=== PATIENT | female | born 1955 | race Two or more races ===

== ENCOUNTER 2016-04-22 08:49 | Emergency (ER) | payer MEDICARE, MEDICAID ==
[2016-04-22] MEDS ORDERED: OXYCODONE-ACETAMINOPHEN 5-325 MG TABLET PO ONE (09:50)
--- NOTE | 2016-04-22 09:50 | ER Document Report ---
ED Neck/Back Problem - General Chief Complaint: Low Back Pain Stated Complaint: THIGH PAIN Mode of Arrival: Ambulatory Information source: Patient TRAVEL OUTSIDE OF THE [place] IN LAST 30 DAYS: No - Related Data Allergies/Adverse Reactions: hydrocodone [Hydrocodone] Allergy (Severe, Verified 04/22/16 08:53) sertraline HCl [From Zoloft] Allergy (Severe, Verified 04/22/16 08:53) hives, resp arrest propranolol HCl [From Inderal] Allergy (Intermediate, Verified 04/22/16 08:53) Hives lamotrigine [From Lamictal] Allergy (Verified 04/22/16 08:53) propranolol Allergy (Verified 04/22/16 08:53) Past Medical History - Social History Smoking Status: Unknown if Ever Smoked Chew tobacco use (# tins/day): No Frequency of alcohol use: Occasional Drug Abuse: None Family History: Reviewed & Not Pertinent, Arthritis, CVA, Hyperlipidemia, Hypertension, Malignancy, Thyroid Disfunction Patient has suicidal ideation: No Patient has homicidal ideation: No - Past Medical History Cardiac Medical History: Reports: Hx Hypercholesterolemia, Hx Hypertension Pulmonary Medical History: Reports: Hx Asthma Denies: Hx Tuberculosis Neurological Medical History: Reports: Hx Cerebrovascular Accident, Hx Migraine Endocrine Medical History: Reports: Hx HypothyroidismComment Only: Hx Diabetes Mellitus Type 2 - borderline GI Medical History: Reports: Hx Gastroesophageal Reflux Disease Musculoskeltal Medical History: Reports Hx Arthritis, Reports Hx Musculoskeletal Deformity, Reports Hx Musculoskeletal Trauma Psychiatric Medical History: Reports: Hx Bipolar Disorder, Hx Depression, Hx Schizophrenia Past Surgical History: Reports: Hx Section, Hx Gynecologic Surgery - hyst, Hx Hysterectomy, Hx Thyroid Surgery, Hx Tonsillectomy - Immunizations Immunizations up to date: Yes Hx Diphtheria, Pertussis, Tetanus Vaccination: Yes Hx Pneumococcal Vaccination: 12/15/15 Physical Exam - Vital signs Vitals: Temp Pulse Resp BP Pulse Ox 98.8 F 101 H 15 166/116 H 96 04/22/16 08:54 04/22/16 08:54 04/22/16 08:54 04/22/16 08:54 04/22/16 08:54 Course - Vital Signs Vital signs: Temp Pulse Resp BP Pulse Ox 98.8 F 101 H 15 166/116 H 96 04/22/16 08:54 04/22/16 08:54 04/22/16 08:54 04/22/16 08:54 04/22/16 08:54 Discharge - Discharge Clinical Impression: Chronic low back pain Qualifiers: Back pain laterality: right Sciatica presence: with sciatica Sciatica laterality: sciatica of right side Qualified Code(s): M54.41 - Lumbago with sciatica, right side; G89.29 - Other chronic pain Condition: Stable Disposition: HOME, SELF-CARE Instructions: Chronic Pain Control ([facility]), Chronic Back Pain ([facility]), Leg Pain Nonspecific ([facility]), Muscle Relaxers ([facility]), Anti-Inflammatory Medication ([facility]), Sciatica ([facility]) Additional Instructions: Keep your appointment and follow-up with your primary care provider this week. Return to the Emergency Department for any worsening symptoms or concerns. Prescriptions: Methocarbamol [Robaxin 500 mg Tablet] 500 mg PO BIDP PRN #10 tablet PRN Reason: Naproxen [Naprosyn 250 mg Tablet] 250 mg PO BIDP PRN #10 tablet PRN Reason: Forms: Elevated Blood Pressure Referrals: YEE LEONARD PA-C [Primary Care Provider] - Follow up tomorrow
[2016-04-22 10:12] VITALS: BP 143/103
== END 2016-04-22 10:10 | disposition home or self-care (01) ==
LOC: ER 08:49
DX: M54.41 Lumbago with sciatica, right side (principal); G89.29 Other chronic pain; I10 Essential (primary) hypertension; J45.909 Unspecified asthma, uncomplicated; Z88.5 Allergy status to narcotic agent; Z88.8 Allergy status to other drugs, medicaments and biological substances; Z86.73 Personal history of transient ischemic attack (TIA), and cerebral infarction without residual deficits
CPT/HCPCS: 99283; A9270

== ENCOUNTER 2016-05-01 09:38 | Emergency (ER) | payer MEDICARE, MEDICAID ==
[2016-05-01] MEDS ORDERED: NORMAL SALINE 1000 ML 1,000 ML IV ONE (11:24)
[2016-05-01] MEDS ORDERED: MORPHINE SULFATE 10 MG/ML INJ IV ONE ×2 (11:27→12:15)
--- NOTE | 2016-05-01 11:33 | ER Document Report ---
ED General - General Chief Complaint: Abdominal Pain Stated Complaint: STOMACH PAIN Time seen by provider: 11:15 Mode of Arrival: Ambulatory Information source: Patient Notes: 60-year-old female who complains about 2 day history of fairly abrupt onset left lower quadrant abdominal pain. She reports 1 week of diarrhea prior to that says it is better now. She reports she had some nausea with the past week but no vomiting and that is now better too. She denies any prior history of symptoms like this the review of records does show prior emergency department visits with left lower quadrant pain. The patient denies fever, chills, cough, shortness of breath, earache, sore throat, chest pain, back pain, , hematemesis , hematochezia, or melena. Patient denies any dysuria but does think she may have has emergency of the past 3 days Physical Exam: General: Alert, appears well. HEENT: Normocephalic. Atraumatic. PERRLA. Extraocular movements intact. Oropharynx clear. Neck: Supple. Non-tender. Respiratory: No respiratory distress. Clear and equal breath sounds bilaterally. Cardiovascular: Regular rate and rhythm. Abdominal: Normal Inspection. Soft, initially reports left lower quadrant pain but with distraction abdomen is soft nontender nondistended no guarding rebound rigidity or referred pain. No distension. Normal Bowel Sounds. Back: Non-tender. No deformity or step off. No CVA tenderness Extremities: Moves all four extremities. 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 Normal Mood. Skin: Warm. Dry. Normal color. TRAVEL OUTSIDE OF THE [place] IN LAST 30 DAYS: No - Related Data Allergies/Adverse Reactions: hydrocodone [Hydrocodone] Allergy (Severe, Verified 05/01/16 11:49) sertraline HCl [From Zoloft] Allergy (Severe, Verified 05/01/16 11:49) hives, resp arrest propranolol HCl [From Inderal] Allergy (Intermediate, Verified 05/01/16 11:49) Hives lamotrigine [From Lamictal] Allergy (Verified 05/01/16 11:49) propranolol Allergy (Verified 05/01/16 11:49) Past Medical History - Social History Smoking Status: Never Smoker Chew tobacco use (# tins/day): No Frequency of alcohol use: Occasional Family History: Arthritis, CVA, Hyperlipidemia, Hypertension, Malignancy, Thyroid Disfunction Patient has suicidal ideation: No Patient has homicidal ideation: No - Past Medical History Cardiac Medical History: Reports: Hx Hypercholesterolemia, Hx Hypertension Pulmonary Medical History: Reports: Hx Asthma Denies: Hx Tuberculosis Neurological Medical History: Reports: Hx Cerebrovascular Accident, Hx Migraine Endocrine Medical History: Reports: Hx HypothyroidismComment Only: Hx Diabetes Mellitus Type 2 - borderline Renal/ Medical History: Denies: Hx Peritoneal Dialysis GI Medical History: Reports: Hx Gastroesophageal Reflux Disease Musculoskeltal Medical History: Reports Hx Arthritis, Reports Hx Musculoskeletal Deformity, Reports Hx Musculoskeletal Trauma Psychiatric Medical History: Reports: Hx Bipolar Disorder, Hx Depression, Hx Schizophrenia Past Surgical History: Reports: Hx Section, Hx Gynecologic Surgery - hyst, Hx Hysterectomy, Hx Thyroid Surgery, Hx Tonsillectomy - Immunizations Immunizations up to date: Yes Hx Diphtheria, Pertussis, Tetanus Vaccination: Yes Hx Pneumococcal Vaccination: 12/15/15 Review of Systems - Review of Systems Constitutional: See HPI EENT: denies: Ear pain, Throat pain Cardiovascular: denies: Chest pain Respiratory: denies: Cough, Short of breath Gastrointestinal: Abdominal pain, Diarrhea, Nausea Genitourinary: denies: Burning, Dysuria Musculoskeletal: denies: Back pain, Ankle swelling Hematologic/Lymphatic: denies: Swollen glands Neurological/Psychological: denies: Weakness, Numbness Physical Exam - Vital signs Vitals: Temp Pulse Resp BP 98.4 F 106 H 18 152/106 H 05/01/16 09:43 05/01/16 09:43 05/01/16 09:43 05/01/16 09:43 Course - Re-evaluation Re-evalutation: 05/01/16 13:44 Reexamination patient shows abdomen to be soft nontender nondistended no guarding rebound rigidity. She reports no nausea or vomiting. CT shows no evidence for kidney stones or other intra-abdominal pathology. There is equivocal evidence for UTI and this will be treated and have her follow with her physician as an outpatient - Vital Signs Vital signs: Temp Pulse Resp BP Pulse Ox 98.4 F 106 H 18 152/106 H 98 05/01/16 09:43 05/01/16 09:43 05/01/16 09:43 05/01/16 09:43 05/01/16 12:20 - Laboratory Result Diagrams: 05/01/16 11:38 05/01/16 11:38 Laboratory results interpreted by me: 05/01/16 05/01/16 11:38 12:05 Potassium 3.5 L Ur Leukocyte Esterase TRACE H - Diagnostic Test Radiology reviewed: Image reviewed, Reports reviewed Discharge - Discharge Clinical Impression: Abdominal pain Qualifiers: Abdominal location: left lower quadrant Qualified Code(s): R10.32 - Left lower quadrant pain UTI (urinary tract infection) Qualifiers: Urinary tract infection type: site unspecified Hematuria presence: without hematuria Qualified Code(s): N39.0 - Urinary tract infection, site not specified Condition: Stable Disposition: HOME, SELF-CARE Instructions: Abdominal Pain ([facility]), Urinary Tract Infection ([facility]) Prescriptions: Nitrofurantoin/Nitrofuran Mac [Macrobid 100 mg Capsule] 1 tab PO BID #20 capsule Phenazopyridine HCl [Pyridium 100 Mg Tablet] 100 mg PO BID #4 tablet Referrals: YEE LEONARD PA-C [Primary Care Provider] - Follow up in 3-5 days
[2016-05-01 11:45] LABS: ABSOLUTE BASOPHILS # (AUTO) 0.1 10^3/uL (0.0-0.2); ABSOLUTE EOSINOPHILS # (AUTO) 0.1 10^3/uL (0.0-0.6); ABSOLUTE LYMPHOCYTES (AUTO) 2.1 10^3/uL (0.5-4.7); ABSOLUTE MONOCYTES (AUTO) 0.7 10^3/uL (0.1-1.4); ABSOLUTE NEUT (AUTO) 4.8 10^3/uL (1.7-8.2); BASOPHILS % (AUTO) 0.7 % (0-2); EOSINOPHILS % (AUTO) 1.6 % (0-6); HEMATOCRIT 40.6 % (36.0-47.0); HEMOGLOBIN 13.5 g/dL (12.0-15.5); HGB HCT DIFFERENCE -0.1; MEAN CORPUSCULAR HEMOGLOBIN 31.2 pg (27.0-33.4); MEAN CORPUSCULAR HGB CONC 33.1 g/dL (32.0-36.0); MEAN CORPUSCULAR VOLUME 94 fl (80-97); MONOCYTES % (AUTO) 8.4 % (3-13); RED BLOOD COUNT 4.32 10^6/uL (3.72-5.28); RED CELL DISTRIBUTION WIDTH 12.4 % (11.5-14.0); SEGMENTED NEUTROPHILS % (AUTO) 62.3 % (42-78); WHITE BLOOD COUNT 7.7 10^3/uL (4.0-10.5)
[2016-05-01 12:06] LABS: ALANINE AMINOTRANSFERASE 29 U/L (9-52); ALBUMIN 4.2 g/dL (3.5-5.0); ALKALINE PHOSPHATASE 92 U/L (38-126); ANION GAP 13 (5-19); ASPARTATE AMINO TRANSFERASE 27 U/L (14-36); BILIRUBIN,TOTAL 0.5 mg/dL (0.2-1.3); BLOOD UREA NITROGEN 8 mg/dL (7-20); CARBON DIOXIDE 30 mmol/L (22-30); CHLORIDE 100 mmol/L (98-107); CREATININE RESULT 0.52 mg/dL (0.52-1.25); GLUCOSE 101 mg/dL (75-110); LIPASE 164.1 U/L (23-300); POTASSIUM 3.5 mmol/L (3.6-5.0); SODIUM 142.5 mmol/L (137-145); TOTAL PROTEIN 7.3 g/dL (6.3-8.2)
[2016-05-01 12:29] LABS: APPEARANCE,URINE CLEAR; BILIRUBIN,URINE NEGATIVE (NEGATIVE); GLUCOSE, URINE NEGATIVE (NEGATIVE); KETONES,URINE NEGATIVE (NEGATIVE); LEUKOCYTE ESTERASE,URINE TRACE (NEGATIVE); NITRITE,URINE NEGATIVE (NEGATIVE); PROTEIN,URINE NEGATIVE (NEGATIVE); URINE SPECIFIC GRAVITY 1.006; UROBILINOGEN,URINE NEGATIVE mg/dL (<2.0)
[2016-05-01 13:59] VITALS: BP 147/104
== END 2016-05-01 13:58 | disposition home or self-care (01) ==
LOC: ER 09:38
DX: N39.0 Urinary tract infection, site not specified (principal); R10.32 Left lower quadrant pain; R19.7 Diarrhea, unspecified; R11.0 Nausea; E78.00 Pure hypercholesterolemia, unspecified; I10 Essential (primary) hypertension; E03.9 Hypothyroidism, unspecified; Z86.73 Personal history of transient ischemic attack (TIA), and cerebral infarction without residual deficits; Z88.6 Allergy status to analgesic agent
CPT/HCPCS: 96376; 99284; 96361; 96374; 36415; 87086; 83690; 85025; 87088; 80053; 81001; 87186; 74176; J2270; J7030

== ENCOUNTER 2016-05-03 12:13 | Emergency (ER) | payer MEDICARE, MEDICAID ==
--- NOTE | 2016-05-03 12:19 | ER Document Report ---
Addendum entered and electronically signed by ANSON SHETTY NP 12:22: Doctor's Note Notes: 05/03/16 12:[address] Jeffery concerning her symptoms and her blood pressure Dr. Jeffery recommended a CT of the head at this time. And that she be made into a level II. Original Note: ED Medical Screen (RME) - General Stated Complaint: HEADACHE,BACK PAIN Time seen by provider: 12:16 Mode of Arrival: Ambulatory Information source: Patient Notes: 60-year-old female presents to ED migraine headache and back pain with sciatica. She states she had elevated blood pressure this morning of 170/102 at home. The back pain and the headache both started last night blood pressure in RME is 172/110. She takes tribenzor and clonidine and states she has taken both of her medicines today. Patient states she had a stroke 2 years ago. She states she had some blurred vision this morning. I have greeted and performed a rapid initial assessment of this patient. A comprehensive ED assessment and evaluation of the patient, analysis of test results and completion of medical decision making process will be conducted by an additional ED providers. TRAVEL OUTSIDE OF THE [place] IN LAST 30 DAYS: No - Related Data Allergies/Adverse Reactions: hydrocodone [Hydrocodone] Allergy (Severe, Verified 05/03/16 12:15) sertraline HCl [From Zoloft] Allergy (Severe, Verified 05/03/16 12:15) hives, resp arrest propranolol HCl [From Inderal] Allergy (Intermediate, Verified 05/03/16 12:15) Hives lamotrigine [From Lamictal] Allergy (Verified 05/03/16 12:15) propranolol Allergy (Verified 05/03/16 12:15) Past Medical History - Past Medical History Cardiac Medical History: Reports: Hx Hypercholesterolemia, Hx Hypertension Pulmonary Medical History: Reports: Hx Asthma Denies: Hx Tuberculosis Neurological Medical History: Reports: Hx Cerebrovascular Accident, Hx Migraine Endocrine Medical History: Reports: Hx HypothyroidismComment Only: Hx Diabetes Mellitus Type 2 - borderline Renal/ Medical History: Denies: Hx Peritoneal Dialysis GI Medical History: Reports: Hx Gastroesophageal Reflux Disease Musculoskeltal Medical History: Reports Hx Arthritis, Reports Hx Musculoskeletal Deformity, Reports Hx Musculoskeletal Trauma Psychiatric Medical History: Reports: Hx Bipolar Disorder, Hx Depression, Hx Schizophrenia Past Surgical History: Reports: Hx Section, Hx Gynecologic Surgery - hyst, Hx Hysterectomy, Hx Thyroid Surgery, Hx Tonsillectomy - Immunizations Immunizations up to date: Yes Hx Diphtheria, Pertussis, Tetanus Vaccination: Yes
[2016-05-03] MEDS ORDERED: ACETAMINOPHEN 325 MG TABLET PO ONE (12:20)
[2016-05-03] MEDS ORDERED: DIPHENHYDRAMINE HCL 50 MG/ML VIAL IV ONE (12:57)
[2016-05-03] MEDS ORDERED: PROCHLORPERAZINE EDISYLATE INJ 10 MG/2 ML VIAL IV ONE (12:57)
[2016-05-03 13:06] LABS: ABSOLUTE BASOPHILS # (AUTO) 0.1 10^3/uL (0.0-0.2); ABSOLUTE EOSINOPHILS # (AUTO) 0.3 10^3/uL (0.0-0.6); ABSOLUTE LYMPHOCYTES (AUTO) 2.6 10^3/uL (0.5-4.7); ABSOLUTE MONOCYTES (AUTO) 0.5 10^3/uL (0.1-1.4); ABSOLUTE NEUT (AUTO) 5.3 10^3/uL (1.7-8.2); BASOPHILS % (AUTO) 0.9 % (0-2); EOSINOPHILS % (AUTO) 3.8 % (0-6); HEMATOCRIT 42.3 % (36.0-47.0); HEMOGLOBIN 13.8 g/dL (12.0-15.5); HGB HCT DIFFERENCE -0.9; LYMPHOCYTES % (AUTO) 29.1 % (13-45); MEAN CORPUSCULAR HEMOGLOBIN 30.5 pg (27.0-33.4); MEAN CORPUSCULAR HGB CONC 32.7 g/dL (32.0-36.0); MEAN CORPUSCULAR VOLUME 93 fl (80-97); MONOCYTES % (AUTO) 6.2 % (3-13); RED BLOOD COUNT 4.53 10^6/uL (3.72-5.28); RED CELL DISTRIBUTION WIDTH 12.5 % (11.5-14.0); WHITE BLOOD COUNT 8.8 10^3/uL (4.0-10.5)
[2016-05-03 13:19] LABS: ALANINE AMINOTRANSFERASE 36 U/L (9-52); ALBUMIN 5.1 g/dL (3.5-5.0); ALKALINE PHOSPHATASE 100 U/L (38-126); ANION GAP 15 (5-19); ASPARTATE AMINO TRANSFERASE 26 U/L (14-36); BILIRUBIN,TOTAL 0.7 mg/dL (0.2-1.3); BLOOD UREA NITROGEN 13 mg/dL (7-20); CALCIUM 10.8 mg/dL (8.4-10.2); CARBON DIOXIDE 26 mmol/L (22-30); CHLORIDE 101 mmol/L (98-107); CREATININE RESULT 0.59 mg/dL (0.52-1.25); GLUCOSE 114 mg/dL (75-110); LIPASE 189.8 U/L (23-300); POTASSIUM 3.8 mmol/L (3.6-5.0); SODIUM 141.7 mmol/L (137-145); TOTAL PROTEIN 8.2 g/dL (6.3-8.2)
[2016-05-03] MEDS ORDERED: HYDRALAZINE HCL INJ/PF 20 MG/1 ML SDV IV ONE (13:25)
--- NOTE | 2016-05-03 13:35 | ER Document Report ---
ED General - General Chief Complaint: Headache Stated Complaint: HEADACHE,BACK PAIN Mode of Arrival: Ambulatory Information source: Patient Notes: 60 yr old female with hx of htn , migraines and previous cva presetns with complaints of headache. pt notes she gets headaches like this often when her bp is elevated. pt has taken her meds. denies any neuro deficits , admits to blurry vision initally which has since resolved. TRAVEL OUTSIDE OF THE [place] IN LAST 30 DAYS: No - HPI Onset: Just prior to arrival Onset/Duration: Sudden Quality of pain: Pressure Severity: Mild Pain Level: 1 Associated symptoms: Headache Exacerbated by: Denies Relieved by: Denies Similar symptoms previously: Yes Recently seen / treated by doctor: Yes - Related Data Allergies/Adverse Reactions: hydrocodone [Hydrocodone] Allergy (Severe, Verified 05/03/16 12:15) sertraline HCl [From Zoloft] Allergy (Severe, Verified 05/03/16 12:15) hives, resp arrest propranolol HCl [From Inderal] Allergy (Intermediate, Verified 05/03/16 12:15) Hives lamotrigine [From Lamictal] Allergy (Verified 05/03/16 12:15) propranolol Allergy (Verified 05/03/16 12:15) Past Medical History - General Information source: Patient - Social History Smoking Status: Never Smoker Cigarette use (# per day): No Chew tobacco use (# tins/day): No Smoking Education Provided: No Frequency of alcohol use: None Drug Abuse: None Family History: Arthritis, CVA, Hyperlipidemia, Hypertension, Malignancy, Thyroid Disfunction Patient has suicidal ideation: No Patient has homicidal ideation: No - Past Medical History Cardiac Medical History: Reports: Hx Hypercholesterolemia, Hx Hypertension Pulmonary Medical History: Reports: Hx Asthma Denies: Hx Tuberculosis Neurological Medical History: Reports: Hx Cerebrovascular Accident, Hx Migraine Endocrine Medical History: Reports: Hx HypothyroidismComment Only: Hx Diabetes Mellitus Type 2 - borderline Renal/ Medical History: Denies: Hx Peritoneal Dialysis GI Medical History: Reports: Hx Gastroesophageal Reflux Disease Musculoskeltal Medical History: Reports Hx Arthritis, Reports Hx Musculoskeletal Deformity, Reports Hx Musculoskeletal Trauma Psychiatric Medical History: Reports: Hx Bipolar Disorder, Hx Depression, Hx Schizophrenia Past Surgical History: Reports: Hx Section, Hx Gynecologic Surgery - hyst, Hx Hysterectomy, Hx Thyroid Surgery, Hx Tonsillectomy - Immunizations Immunizations up to date: Yes Hx Diphtheria, Pertussis, Tetanus Vaccination: Yes Hx Pneumococcal Vaccination: 12/15/15 Review of Systems - Review of Systems Notes: REVIEW OF SYSTEMS: CONSTITUTIONAL : Denies fever, chills, or sweats. Denies recent illness. EENT: Admits to photophobia CARDIOVASCULAR: Denies chest pain. Denies palpitations or racing or irregular heart beat. Denies ankle edema. RESPIRATORY: Denies cough, cold, or chest congestion. Denies shortness of breath, difficulty breathing, or wheezing. GASTROINTESTINAL: Denies abdominal pain or distention. Denies nausea, vomiting , or diarrhea. Denies blood in vomitus, stools, or per rectum. Denies black, tarry stools. Denies constipation. GENITOURINARY: Denies difficulty urinating, painful urination, burning, frequency, blood in urine, or discharge. FEMALE GENITOURINARY: Denies vaginal bleeding, heavy or abnormal periods, irregular periods. Denies vaginal discharge or odor. MUSCULOSKELETAL: Denies back or neck pain or stiffness. Denies joint pain or swelling. SKIN: Denies rash, lesions or sores. HEMATOLOGIC : Denies easy bruising or bleeding. LYMPHATIC: Denies swollen, enlarged glands. NEUROLOGICAL: Admits acute on chronic headache PSYCHIATRIC: Denies anxiety or stress. Denies depression, suicidal ideation, or homicidal ideation. ALL OTHER SYSTEMS REVIEWED AND NEGATIVE. Dictation was performed using [employer] voice recognition software PHYSICAL EXAMINATION: GENERAL: Well-appearing, well-nourished and in no acute distress. Patient is hypertensive on arrival HEAD: Atraumatic, normocephalic. EYES: Pupils equal round and reactive to light, extraocular movements intact, conjunctiva are normal. ENT: Nares patent, oropharynx clear without exudates. Moist mucous membranes. NECK: Normal range of motion, supple without lymphadenopathy LUNGS: Breath sounds clear to auscultation bilaterally and equal. No wheezes rales or rhonchi. HEART: Intermittent tachycardia anxiety related ABDOMEN: Soft, nontender, nondistended abdomen. No guarding, no rebound. No masses appreciated. Female : deferred Musculoskeletal: Normal range of motion, no pitting or edema. No cyanosis. NEUROLOGICAL: Cranial nerves grossly intact. Normal speech, normal gait. Normal sensory, motor exams PSYCH: Normal mood, normal affect. SKIN: Warm, Dry, normal turgor, no rashes or lesions noted. Physical Exam - Vital signs Vitals: Temp Pulse Resp BP Pulse Ox 98.6 F 118 H 20 172/110 H 97 05/03/16 12:17 05/03/16 12:17 05/03/16 12:17 05/03/16 12:17 05/03/16 12:17 Course - Re-evaluation Re-evalutation: 05/03/16 13:35 Emergency to the head noted no acute abnormality patient has no neurological deficits does not appear to have a CVA, patient will be treated for her blood pressure and headache concerns 05/03/16 14:57 Patient's blood pressure is improved her headache is resolved, she is now complaining of chronic back pain, this would be treated with anti- inflammatories and does not require any narcotics at this time After performing a Medical Screening Examination, I estimate there is LOW risk for ACUTE GLAUCOMA, TEMPORAL ARTERITIS, MENINGITIS, INCRANIAL HEMORRHAGE, or ISCHEMIC STROKE thus I consider the discharge disposition reasonable. The patient and I have discussed the diagnosis and risks, and we agree with discharging home with close follow-up with the understanding that symptoms and presentations can change. We also discussed returning to the Emergency Department immediately if new or worsening symptoms occur. We have discussed the symptoms which are most concerning (e.g., changing or worsening symptoms, new numbness or weakness, vomiting, fever) that necessitate immediate return. - Vital Signs Vital signs: Temp Pulse Resp BP Pulse Ox 98.6 F 118 H 20 167/109 H 96 05/03/16 12:17 05/03/16 12:17 05/03/16 13:50 05/03/16 13:51 05/03/16 13:51 - Laboratory Result Diagrams: 05/03/16 12:25 05/03/16 12:25 Laboratory results interpreted by me: 05/03/16 12:25 Glucose 114 H Calcium 10.8 H Albumin 5.1 H - Diagnostic Test Radiology reviewed: Image reviewed, Reports reviewed Discharge - Discharge Clinical Impression: Hypertension Qualifiers: Hypertension type: essential hypertension Qualified Code(s): I10 - Essential ( primary) hypertension Headache Qualifiers: Headache type: unspecified Headache chronicity pattern: acute headache Intractability: not intractable Qualified Code(s): R51 - Headache Chronic back pain Qualifiers: Back pain location: low back pain Back pain laterality: bilateral Sciatica presence: without sciatica Qualified Code(s): M54.5 - Low back pain; G89.29 - Other chronic pain Condition: Stable Disposition: HOME, SELF-CARE Instructions: Headache ([facility]) Referrals: YEE LEONARD PA-C [Primary Care Provider] - Follow up tomorrow
[2016-05-03 14:07] LABS: APPEARANCE,URINE CLEAR; BILIRUBIN,URINE NEGATIVE (NEGATIVE); GLUCOSE, URINE NEGATIVE (NEGATIVE); KETONES,URINE NEGATIVE (NEGATIVE); LEUKOCYTE ESTERASE,URINE NEGATIVE (NEGATIVE); NITRITE,URINE NEGATIVE (NEGATIVE); PROTEIN,URINE NEGATIVE (NEGATIVE); URINE SPECIFIC GRAVITY 1.004; UROBILINOGEN,URINE NEGATIVE mg/dL (<2.0)
[2016-05-03 14:17] LABS: RBC,URINE NONE SEEN /HPF; WBC,URINE NONE SEEN /HPF
[2016-05-03] MEDS ORDERED: KETOROLAC TROMETHAMINE INJ/PF 30 MG/1 ML SDV IV ONE (14:56)
[2016-05-03 16:16] VITALS: BP 177/101
== END 2016-05-03 15:11 | disposition home or self-care (01) ==
LOC: ER 12:13
DX: G89.29 Other chronic pain (principal); M54.5 Low back pain; R51 Headache; E78.00 Pure hypercholesterolemia, unspecified; I10 Essential (primary) hypertension; E03.9 Hypothyroidism, unspecified; Z86.73 Personal history of transient ischemic attack (TIA), and cerebral infarction without residual deficits; Z88.6 Allergy status to analgesic agent; Z90.710 Acquired absence of both cervix and uterus
CPT/HCPCS: 99284; 96374; 96375; 36415; 83690; 85025; 80053; 81001; 70450; A9270; J1200; J0360; J1885; J0780

== ENCOUNTER 2016-05-06 00:50 | Emergency (ER) | payer MEDICARE, MEDICAID ==
[2016-05-06] MEDS ORDERED: KETOROLAC TROMETHAMINE 60 MG/2 ML SDV IM ONE (02:47)
--- NOTE | 2016-05-06 03:52 | ER Document Report ---
ED General - General Chief Complaint: Low Back Pain Stated Complaint: LOW BACK PAIN Notes: Patient is 60-year-old female presents with complaint of exacerbation of her chronic back pain with sciatic nerve impingement. She says this feels exactly like her usual pain. So became worse tonight. Pain radiates from the rest of her back down the back of her leg. No numbness or weakness in her foot. Loss of bowel control. No urinary retention. Patient says in the past Toradol has helped very much with this pain. She has no other complaints at this time. TRAVEL OUTSIDE OF THE [place] IN LAST 30 DAYS: No - Related Data Allergies/Adverse Reactions: hydrocodone [Hydrocodone] Allergy (Severe, Verified 05/06/16 01:24) sertraline HCl [From Zoloft] Allergy (Severe, Verified 05/06/16 01:24) hives, resp arrest propranolol HCl [From Inderal] Allergy (Intermediate, Verified 05/06/16 01:24) Hives lamotrigine [From Lamictal] Allergy (Verified 05/06/16 01:24) propranolol Allergy (Verified 05/06/16 01:24) Past Medical History - Social History Smoking Status: Unknown if Ever Smoked Frequency of alcohol use: Occasional Drug Abuse: None Family History: Arthritis, CVA, Hyperlipidemia, Hypertension, Malignancy, Thyroid Disfunction Patient has suicidal ideation: No Patient has homicidal ideation: No - Past Medical History Cardiac Medical History: Reports: Hx Hypercholesterolemia, Hx Hypertension Pulmonary Medical History: Reports: Hx Asthma Denies: Hx Tuberculosis Neurological Medical History: Reports: Hx Cerebrovascular Accident, Hx Migraine Endocrine Medical History: Reports: Hx HypothyroidismComment Only: Hx Diabetes Mellitus Type 2 - borderline Renal/ Medical History: Denies: Hx Peritoneal Dialysis GI Medical History: Reports: Hx Gastroesophageal Reflux Disease Musculoskeltal Medical History: Reports Hx Arthritis, Reports Hx Musculoskeletal Deformity, Reports Hx Musculoskeletal Trauma Psychiatric Medical History: Reports: Hx Bipolar Disorder, Hx Depression, Hx Schizophrenia Past Surgical History: Reports: Hx Section, Hx Gynecologic Surgery - hyst, Hx Hysterectomy, Hx Thyroid Surgery, Hx Tonsillectomy - Immunizations Immunizations up to date: Yes Hx Diphtheria, Pertussis, Tetanus Vaccination: Yes Hx Pneumococcal Vaccination: 12/15/15 Review of Systems - Review of Systems Notes: My Normal Review Basic REVIEW OF SYSTEMS: CONSTITUTIONAL : Denies fever, chills, or sweats. Denies recent illness. GASTROINTESTINAL: Denies abdominal pain. Denies nausea, vomiting, or diarrhea. Denies constipation. Last BM: GENITOURINARY: Denies difficulty urinating, painful urination, burning, frequency, or blood in urine. MUSCULOSKELETAL: Back pain SKIN: Denies rash or skin lesions. NEUROLOGICAL: Denies altered mental status or loss of consciousness. Denies headache. Denies weakness or paralysis or loss of use of either side. Denies problems with gait or speech. Denies sensory or motor loss. ALL OTHER SYSTEMS REVIEWED AND NEGATIVE. Physical Exam - Vital signs Vitals: Temp Pulse Resp BP Pulse Ox 98.3 F 108 H 20 140/98 H 95 05/06/16 01:18 05/06/16 01:18 05/06/16 01:18 05/06/16 01:18 05/06/16 01:18 - Notes Notes: General Appearance: Well nourished, alert, cooperative, no acute distress, moderate obvious discomfort. Vitals: reviewed, See vital signs table. Head: no swelling or tenderness to the head Eyes: PERRL, EOMI, Conjuctiva clear Back: Some elevation of the right lower back and into gluteal area. Left side of the back is nontender to palpation. Extremities: strength 5/5 in all extremities, good pulses in all extremities, no swelling or tenderness in the extremities, no edema. Skin: warm, dry, appropriate color, no rash Neuro: speech clear, oriented x 3, normal affect, responds appropriately to questions. Patient is good strength with plantar and dorsiflexion against resistance of both feet. Distal sensation intact. Patellar reflex is 2 out of 4. Course - Vital Signs Vital signs: Temp Pulse Resp BP Pulse Ox 98.6 F 97 18 137/90 H 98 05/06/16 04:11 05/06/16 04:11 05/06/16 04:11 05/06/16 04:11 05/06/16 04:11 - Transfer of Care Notes: 05/06/16 06:27 After the shot of Toradol patient is feeling improved. Patient looks very well and exam. I feel the patient is safe to be discharged home. Symptoms are consistent with back pain with sciatica. There is no evidence of central spinal cord impingement. I encourage her to return to ER immediately if she has worsening pain, leg weakness, leg numbness, loss of bowel control, urinary retention. Patient agrees with plan and will be discharged home. Dictation of this chart was performed using voice recognition software; therefore, there may be some unintended grammatical errors. Discharge - Discharge Clinical Impression: Back pain Qualifiers: Back pain location: low back pain Chronicity: chronic Back pain laterality: right Sciatica presence: with sciatica Sciatica laterality: sciatica of right side Qualified Code(s): M54.41 - Lumbago with sciatica, right side Condition: Good Disposition: HOME, SELF-CARE Additional Instructions: LOW BACK PAIN: Three out of every four people will have an episode of disabling back pain during their lifetime. Most commonly the pain is due to straining of the muscles and ligaments in the low back. Usual treatment includes: (1) Rest on a firm surface. Avoid lying on your stomach. (2) Ice pack the painful area. After a few days, gentle heat may be used intermittently to relax the area, or ice packs can be continued. (3) Medication may be needed -- muscle relaxers and antiinflammatory medicines are commonly used. (4) As the back improves, exercises are prescribed to strengthen the back and abdominal muscles. Your doctor will advise you on the proper care for your back at each stage in your recovery. You may be better in a few days -- or healing may take several weeks. If new symptoms of a "herniated disc" (radiation of pain, numbness, or tingling down the back of the leg or weakness in the leg) occur, you should be re-examined. Further testing may be necessary. ICE PACKS: Apply ice packs frequently against the painful area. Many different schedules are recommended, such as "20 minutes on, 20 minutes off" or "one hour ice, two hours rest." If you need to work, you may need to go longer between ice treatments. You should plan to have the area ice packed AT LEAST one fourth of the time. The ice should be applied over the wrap, tape, or splint, or over a layer of cloth -- not directly against the skin. Some ice bags have a built-in cloth and can be put directly on the skin. WARM PACKS: After approximately two days, apply gentle heat (such as a heating pad or hot water bottle) for about 20 to 30 minutes about every two hours -- at least four times daily. Warmth and elevation will help you make a more rapid recovery , and will ease the pain considerably. Do not use HOT heat, and never apply heat for longer than 30 minutes. The continuous heat can invisibly damage skin and muscles -- even when no burn is seen on the surface. Damaged muscles can make you MORE sore. FOLLOW-UP CARE: If you have been referred to a physician for follow-up care, call the physician s office for an appointment as you were instructed or within the next two days. If you experience worsening or a significant change in your symptoms, notify the physician immediately or return to the Emergency Department at any time for re-evaluation. Please follow up with your doctor on Saturday for close reevaluation. Please return to the ER immediately if you have worsening pain, leg weakness, loss of control of your bowels, or urinary retention. Prescriptions: Ketorolac Tromethamine [Toradol 10 mg Tablet] 10 mg PO Q8HP PRN #12 tablet PRN Reason: Referrals: YEE LEONARD PA-C [Primary Care Provider] - Follow up tomorrow
[2016-05-06 04:17] VITALS: BP 137/90
== END 2016-05-06 04:18 | disposition home or self-care (01) ==
LOC: ER 00:50
DX: G89.29 Other chronic pain (principal); M54.41 Lumbago with sciatica, right side; I10 Essential (primary) hypertension; J45.909 Unspecified asthma, uncomplicated; Z86.73 Personal history of transient ischemic attack (TIA), and cerebral infarction without residual deficits; Z88.5 Allergy status to narcotic agent; Z88.8 Allergy status to other drugs, medicaments and biological substances
CPT/HCPCS: 99283; 96372; J1885

== ENCOUNTER 2016-05-08 20:54 | Emergency (ER) | payer MEDICARE, MEDICAID ==
[2016-05-08] MEDS ORDERED: PROCHLORPERAZINE MALEATE 10 MG TABLET PO ONE (21:43)
--- NOTE | 2016-05-08 21:43 | ER Document Report ---
ED Medical Screen (RME) - General Chief Complaint: Headache Stated Complaint: POSSIBLE MIGRAINE Time seen by provider: 21:38 Mode of Arrival: Ambulatory Information source: Patient Notes: 60-year-old female presents to ED for headache radiating down the back of her neck down her shoulder and back and chest. Started about midnight last night and has been taken ibuprofen 800. States she has a history of migraines. She states she saw her primary doctor today and they gave her a shot of Toradol states he didn't give her any nausea medicine or any prescription. Appointment for MRI on Saturday and she is supposed to be scheduled for pain management Pressure 150/89 with a pulse of 116 when seen in RME I have greeted and performed a rapid initial assessment of this patient. A comprehensive ED assessment and evaluation of the patient, analysis of test results and completion of medical decision making process will be conducted by an additional ED providers. TRAVEL OUTSIDE OF THE [place] IN LAST 30 DAYS: No - Related Data Allergies/Adverse Reactions: hydrocodone [Hydrocodone] Allergy (Severe, Verified 05/06/16 01:24) sertraline HCl [From Zoloft] Allergy (Severe, Verified 05/06/16 01:24) hives, resp arrest propranolol HCl [From Inderal] Allergy (Intermediate, Verified 05/06/16 01:24) Hives lamotrigine [From Lamictal] Allergy (Verified 05/06/16 01:24) propranolol Allergy (Verified 05/06/16 01:24) Past Medical History - Past Medical History Cardiac Medical History: Reports: Hx Hypercholesterolemia, Hx Hypertension Pulmonary Medical History: Reports: Hx Asthma Denies: Hx Tuberculosis Neurological Medical History: Reports: Hx Cerebrovascular Accident, Hx Migraine Endocrine Medical History: Reports: Hx HypothyroidismComment Only: Hx Diabetes Mellitus Type 2 - borderline Renal/ Medical History: Denies: Hx Peritoneal Dialysis GI Medical History: Reports: Hx Gastroesophageal Reflux Disease Musculoskeltal Medical History: Reports Hx Arthritis, Reports Hx Musculoskeletal Deformity, Reports Hx Musculoskeletal Trauma Psychiatric Medical History: Reports: Hx Bipolar Disorder, Hx Depression, Hx Schizophrenia Past Surgical History: Reports: Hx Section, Hx Gynecologic Surgery - hyst, Hx Hysterectomy, Hx Thyroid Surgery, Hx Tonsillectomy - Immunizations Immunizations up to date: Yes Hx Diphtheria, Pertussis, Tetanus Vaccination: Yes Physical Exam - Vital signs Vitals: Pulse Resp BP Pulse Ox 119 H 19 123/102 H 95 01/24/17 21:12 05/08/16 21:12 05/08/16 21:12 05/08/16 21:12 Course - Vital Signs Vital signs: Temp Pulse Resp BP Pulse Ox 121 H 19 150/89 H 95 05/08/16 21:37 05/08/16 21:12 05/08/16 21:37 05/08/16 21:12
[2016-05-09] MEDS ORDERED: ONDANSETRON 4 MG TAB.RAPDIS PO ONE (00:40)
[2016-05-09] MEDS ORDERED: OXYCODONE-ACETAMINOPHEN 5-325 MG TABLET PO ONE (00:40)
[2016-05-09] MEDS ORDERED: ONDANSETRON ODT 4 MG TAB (6 TAB/DSPK) PO PRN (01:01)
--- NOTE | 2016-05-09 01:01 | ER Document Report ---
ED Headache - General Chief Complaint: Headache Stated Complaint: POSSIBLE MIGRAINE Mode of Arrival: Ambulatory TRAVEL OUTSIDE OF THE [place] IN LAST 30 DAYS: No - Related Data Allergies/Adverse Reactions: hydrocodone [Hydrocodone] Allergy (Severe, Verified 05/06/16 01:24) sertraline HCl [From Zoloft] Allergy (Severe, Verified 05/06/16 01:24) hives, resp arrest propranolol HCl [From Inderal] Allergy (Intermediate, Verified 05/06/16 01:24) Hives lamotrigine [From Lamictal] Allergy (Verified 05/06/16 01:24) propranolol Allergy (Verified 05/06/16 01:24) Past Medical History - General Information source: Patient - Social History Family History: Arthritis, CVA, Hyperlipidemia, Hypertension, Malignancy, Thyroid Disfunction - Past Medical History Cardiac Medical History: Reports: Hx Hypercholesterolemia, Hx Hypertension Pulmonary Medical History: Reports: Hx Asthma Denies: Hx Tuberculosis Neurological Medical History: Reports: Hx Cerebrovascular Accident, Hx Migraine Endocrine Medical History: Reports: Hx HypothyroidismComment Only: Hx Diabetes Mellitus Type 2 - borderline Renal/ Medical History: Denies: Hx Peritoneal Dialysis GI Medical History: Reports: Hx Gastroesophageal Reflux Disease Musculoskeltal Medical History: Reports Hx Arthritis, Reports Hx Musculoskeletal Deformity, Reports Hx Musculoskeletal Trauma Psychiatric Medical History: Reports: Hx Bipolar Disorder, Hx Depression, Hx Schizophrenia Past Surgical History: Reports: Hx Section, Hx Gynecologic Surgery - hyst, Hx Hysterectomy, Hx Thyroid Surgery, Hx Tonsillectomy - Immunizations Immunizations up to date: Yes Hx Diphtheria, Pertussis, Tetanus Vaccination: Yes Hx Pneumococcal Vaccination: 12/15/15 Physical Exam - Vital signs Vitals: Pulse Resp BP Pulse Ox 119 H 19 123/102 H 95 05/08/16 21:12 05/08/16 21:12 05/08/16 21:12 05/08/16 21:12 Course - Vital Signs Vital signs: Temp Pulse Resp BP Pulse Ox 121 H 19 150/89 H 95 05/08/16 21:37 05/08/16 21:12 05/08/16 21:37 05/08/16 21:12 Discharge - Discharge Clinical Impression: Headache Condition: Stable Disposition: HOME, SELF-CARE Instructions: Headache ([facility]) Prescriptions: Oxycodone HCl/Acetaminophen [Percocet 5-325 mg Tablet] 1 - 2 tab PO Q4H PRN #15 tablet PRN Reason: Forms: Elevated Blood Pressure Referrals: YEE LEONARD PA-C [Primary Care Provider] - Follow up as needed
[2016-05-09 01:44] VITALS: BP 147/113
--- NOTE | 2016-05-09 01:53 | ER Document Report ---
ED Headache - General Mode of Arrival: Ambulatory Information source: Patient TRAVEL OUTSIDE OF THE [place] IN LAST 30 DAYS: No - HPI Patient complains to provider of: Headache, "Migraine" Patient reports: Occasional migraines Onset: This afternoon Associated symptoms: Other - see above - General Chief Complaint: Headache Stated Complaint: POSSIBLE MIGRAINE Notes: 60 year old female with history of migraines and hypertension presents to the ED complaining of a migraine and pain to the back of her neck that started earlier today. Patient states that she was given Compazine, but it irritated her stomach and did nothing to the pain. Patient states that she was given Toradol at her physician's office. Patient also states that she has an MRI scheduled for Saturday to look at her spine which has been bothering her. Patient claims that she is in the process of getting a pain management physician. (QUANG SANCHEZ) - Related Data Allergies/Adverse Reactions: hydrocodone [Hydrocodone] Allergy (Severe, Verified 05/06/16 01:24) sertraline HCl [From Zoloft] Allergy (Severe, Verified 05/06/16 01:24) hives, resp arrest propranolol HCl [From Inderal] Allergy (Intermediate, Verified 05/06/16 01:24) Hives lamotrigine [From Lamictal] Allergy (Verified 05/06/16 01:24) propranolol Allergy (Verified 05/06/16 01:24) Past Medical History - General Information source: Patient - Social History Smoking Status: Never Smoker Family History: Arthritis, CVA, Hyperlipidemia, Hypertension, Malignancy, Thyroid Disfunction - Past Medical History Cardiac Medical History: Reports: Hx Hypercholesterolemia, Hx Hypertension Pulmonary Medical History: Reports: Hx Asthma Neurological Medical History: Reports: Hx Cerebrovascular Accident, Hx Migraine Endocrine Medical History: Reports: Hx HypothyroidismComment Only: Hx Diabetes Mellitus Type 2 - borderline GI Medical History: Reports: Hx Gastroesophageal Reflux Disease Musculoskeltal Medical History: Reports Hx Arthritis, Reports Hx Musculoskeletal Deformity, Reports Hx Musculoskeletal Trauma Psychiatric Medical History: Reports: Hx Bipolar Disorder, Hx Depression, Hx Schizophrenia Past Surgical History: Reports: Hx Section, Hx Gynecologic Surgery - hyst, Hx Hysterectomy, Hx Thyroid Surgery, Hx Tonsillectomy - Immunizations Immunizations up to date: Yes Hx Diphtheria, Pertussis, Tetanus Vaccination: Yes Hx Pneumococcal Vaccination: 12/15/15 Review of Systems - Review of Systems Constitutional: No symptoms reported EENT: No symptoms reported Cardiovascular: No symptoms reported Respiratory: No symptoms reported Gastrointestinal: No symptoms reported Genitourinary: No symptoms reported Female Genitourinary: No symptoms reported Musculoskeletal: See HPI, Neck pain Skin: No symptoms reported Hematologic/Lymphatic: No symptoms reported Neurological/Psychological: See HPI, Headaches -: Yes All other systems reviewed and negative Physical Exam - Vital signs Interpretation: Normal - General General appearance: Alert In distress: None - HEENT Head: Normocephalic, Atraumatic Eyes: Normal Extraocular movements intact: Yes Pupils: PERRL - Respiratory Respiratory status: No respiratory distress Breath sounds: Normal - Cardiovascular Rhythm: Regular Heart sounds: Normal auscultation - Abdominal Inspection: Normal - Back Back: Normal - Extremities General upper extremity: Normal inspection, Normal ROM General lower extremity: Normal inspection, Normal ROM - Neurological Neuro grossly intact: Yes Cognition: Normal Orientation: AAOx4 [place] Coma Scale Eye Opening: Spontaneous [place] Coma Scale Verbal: Oriented [place] Coma Scale Motor: Obeys Commands [place] Coma Scale Total: 15 Speech: Normal - Psychological Associated symptoms: Normal affect, Normal mood - Skin Skin Temperature: Warm Skin Moisture: Dry Skin Color: Normal - Vital signs Vitals: Pulse Resp BP Pulse Ox 119 H 19 123/102 H 95 05/08/16 21:12 05/08/16 21:12 05/08/16 21:12 05/08/16 21:12 (UQANG SANCHEZ) (CHRISTINE SHARMA) Course - Re-evaluation Re-evalutation: 05/09/16 Patient appears uncomfortable but otherwise well. Blood work within normal limits. Patient has had this pain for quite some time. Requesting Percocet. Patient will be discharged home upon request, and is to follow-up with her pain management doctor. Stable for discharge. (CHRISTINE SHARMA) - Vital Signs Vital signs: Temp Pulse Resp BP Pulse Ox 97.8 F 107 H 16 147/113 H 96 05/09/16 01:15 05/09/16 01:15 05/09/16 01:15 05/09/16 01:15 05/09/16 01:15 (QUANG SANCHEZ) (CHRISTINE SHARMA) Discharge - Discharge Clinical Impression: Headache Qualifiers: Headache type: unspecified Headache chronicity pattern: acute headache Intractability: not intractable Qualified Code(s): R51 - Headache Condition: Stable Disposition: HOME, SELF-CARE Instructions: Headache ([facility]) Prescriptions: Oxycodone HCl/Acetaminophen [Percocet 5-325 mg Tablet] 1 - 2 tab PO Q4H PRN #15 tablet PRN Reason: Forms: Elevated Blood Pressure Referrals: YEE LEONARD PA-C [Primary Care Provider] - Follow up as needed Scribe Attestation: 05/09/16 03:23 I personally performed the services described in the documentation, reviewed and edited the documentation which was dictated to the scribe in my presence, and it accurately records my words and actions. (CHRISTINE SHARMA) Scribe Documentation - Scribe Written by Michelle:: Michelle Trinh, 05/09/2016 1:55 acting as scribe for :: Noemí
== END 2016-05-09 01:30 | disposition home or self-care (01) ==
LOC: ER 20:54
DX: R51 Headache (principal); I10 Essential (primary) hypertension
CPT/HCPCS: 99283; A9270 ×4; S0119; S0183

== ENCOUNTER 2016-05-11 23:40 | Emergency (ER) | payer MEDICARE, MEDICAID ==
[2016-05-11 23:47] VITALS: BP 116/89
[2016-05-12] MEDS ORDERED: OXYCODONE-ACETAMINOPHEN 5-325 MG TABLET PO ONE (01:06)
[2016-05-12] MEDS ORDERED: PROMETHAZINE HCL 25 MG TABLET PO ONE (01:06)
--- NOTE | 2016-05-12 01:07 | ER Document Report ---
ED Headache - General Chief Complaint: Headache Stated Complaint: HEADACHE Time seen by provider: 01:05 Notes: Patient is a 60-year-old female that comes emergency department for chief complaint of pain in her head with a throbbing headache and pain in her lower back. She states that she had an MRI earlier today and started feeling uncomfortable during the MRI, states that afterwards she had pain in her back and headache. She denies nausea or vomiting, head injury, dizziness, visual changes, fever. Past medical history of migraines and hypertension, states that she was given Percocet for the same type of headache and this worked very well. She states that she has pain management referral pending at [facility]. She states she took 800 mg of ibuprofen for her pain in her back and head but this did not resolve her symptoms. TRAVEL OUTSIDE OF THE [place] IN LAST 30 DAYS: No - Related Data Allergies/Adverse Reactions: hydrocodone [Hydrocodone] Allergy (Severe, Verified 05/12/16 01:59) sertraline HCl [From Zoloft] Allergy (Severe, Verified 05/12/16 01:59) hives, resp arrest propranolol HCl [From Inderal] Allergy (Intermediate, Verified 05/12/16 01:59) Hives lamotrigine [From Lamictal] Allergy (Verified 05/12/16 01:59) propranolol Allergy (Verified 05/12/16 01:59) Past Medical History - General Information source: Patient - Social History Smoking Status: Never Smoker Chew tobacco use (# tins/day): No Frequency of alcohol use: Occasional Drug Abuse: None Lives with: Family Family History: Arthritis, CVA, Hyperlipidemia, Hypertension, Malignancy, Thyroid Disfunction Patient has suicidal ideation: No Patient has homicidal ideation: No - Past Medical History Cardiac Medical History: Reports: Hx Hypercholesterolemia, Hx Hypertension Pulmonary Medical History: Reports: Hx Asthma Denies: Hx Tuberculosis Neurological Medical History: Reports: Hx Cerebrovascular Accident, Hx Migraine Endocrine Medical History: Reports: Hx HypothyroidismComment Only: Hx Diabetes Mellitus Type 2 - borderline Renal/ Medical History: Denies: Hx Peritoneal Dialysis GI Medical History: Reports: Hx Gastroesophageal Reflux Disease Musculoskeltal Medical History: Reports Hx Arthritis, Reports Hx Musculoskeletal Deformity, Reports Hx Musculoskeletal Trauma Psychiatric Medical History: Reports: Hx Bipolar Disorder, Hx Depression, Hx Schizophrenia Past Surgical History: Reports: Hx Section, Hx Gynecologic Surgery - hyst, Hx Hysterectomy, Hx Thyroid Surgery, Hx Tonsillectomy - Immunizations Immunizations up to date: Yes Hx Diphtheria, Pertussis, Tetanus Vaccination: Yes Hx Pneumococcal Vaccination: 12/15/15 Review of Systems - Review of Systems Constitutional: No symptoms reported EENT: No symptoms reported Cardiovascular: No symptoms reported Respiratory: No symptoms reported Gastrointestinal: No symptoms reported Genitourinary: No symptoms reported Female Genitourinary: No symptoms reported Musculoskeletal: See HPI Skin: No symptoms reported Hematologic/Lymphatic: No symptoms reported Neurological/Psychological: See HPI Physical Exam - Vital signs Vitals: Temp Pulse Resp BP Pulse Ox 98.2 F 98 22 H 116/89 H 98 05/11/16 23:43 05/11/16 23:43 05/11/16 23:43 05/11/16 23:43 05/11/16 23:43 Interpretation: Normal - General General appearance: Appears well, Alert In distress: None - HEENT Head: Normocephalic, Atraumatic Eyes: Normal Conjunctiva: Normal Extraocular movements intact: Yes Eyelashes: Normal Pupils: PERRL Ears: Normal Sinus: Normal Nasal: Normal Mouth/Lips: Normal Mucous membranes: Normal Pharynx: Normal Neck: Normal - Respiratory Respiratory status: No respiratory distress Chest status: Nontender Breath sounds: Normal. No: Decreased air movement, Nonproductive cough, Wheezing Chest palpation: Normal - Cardiovascular Rhythm: Regular. No: Tachycardia Heart sounds: Normal auscultation, S1 appreciated, S2 appreciated Murmur: No - Abdominal Inspection: Normal Distension: No distension Bowel sounds: Normal Tenderness: Nontender. No: Tender, Guarding Organomegaly: No organomegaly - Back Back: Tender - Very generalized lower back pain on palpation, nonspecific, not midline, no saddle anesthesia, patient moves all extremities without difficulty , normal distal neurovascular exam - Extremities General upper extremity: Normal inspection, Nontender, Normal strength, Normal temperature General lower extremity: Normal inspection, Nontender, Normal strength, Normal temperature - Neurological Neuro grossly intact: Yes Cognition: Normal Orientation: AAOx4 [place] Coma Scale Eye Opening: Spontaneous Vicky Coma Scale Verbal: Oriented [place] Coma Scale Motor: Obeys Commands Vicky Coma Scale Total: 15 Speech: Normal Motor strength normal: LUE, RUE, LLE, RLE Sensory: Normal - Psychological Associated symptoms: Normal affect, Normal mood - Skin Skin Temperature: Warm Skin Moisture: Dry Skin Color: Normal Course - Re-evaluation Re-evalutation: Patient sleeping peacefully, awakened, states that the Percocet and Phenergan completely resolved her symptoms. Patient smiling and states she wants to go home. Patient requests Percocet. Patient just got a prescription of this, discussed that this is not typical management of a headache, I did agree to give her tramadol and Phenergan pending her follow-up with pain management. Patient states that this is satisfactory, discussed return precautions, patient is following up with her provider for her MRI. - Vital Signs Vital signs: Temp Pulse Resp BP Pulse Ox 98.2 F 98 22 H 116/89 H 97 05/11/16 23:45 05/11/16 23:45 05/11/16 23:45 05/11/16 23:45 05/11/16 23:45 Discharge - Discharge Clinical Impression: Headache Qualifiers: Headache type: unspecified Headache chronicity pattern: acute headache Intractability: not intractable Qualified Code(s): R51 - Headache Condition: Stable Disposition: HOME, SELF-CARE Additional Instructions: Please follow-up with pain management for additional management of your back and chronic pain syndromes. Take tramadol and Phenergan if needed for pain. Return to emergency department immediately for any concerning symptoms including fever, severe headache, vomiting, numbness or weakness, etc. Prescriptions: Tramadol HCl [Ultram 50 mg Tablet] 50 mg PO Q6HP PRN #20 tablet PRN Reason: Promethazine HCl [Phenergan 25 mg Tablet] 1 - 2 tab PO Q6H PRN #20 tablet PRN Reason: Referrals: YEE LEONARD PA-C [Primary Care Provider] - Follow up as needed
== END 2016-05-12 02:05 | disposition home or self-care (01) ==
LOC: ER 23:40
DX: R51 Headache (principal); M54.5 Low back pain; Z98.890 Other specified postprocedural states; I10 Essential (primary) hypertension; J45.909 Unspecified asthma, uncomplicated; Z86.69 Personal history of other diseases of the nervous system and sense organs; Z88.8 Allergy status to other drugs, medicaments and biological substances; Z88.5 Allergy status to narcotic agent; Z86.73 Personal history of transient ischemic attack (TIA), and cerebral infarction without residual deficits
CPT/HCPCS: 99283; A9270 ×2

== ENCOUNTER 2016-06-03 03:53 | Emergency (ER) | payer MEDICARE, MEDICAID ==
[2016-06-03] MEDS ORDERED: PREDNISONE 20 MG TABLET PO ONE (06:19)
[2016-06-03] MEDS ORDERED: LIDOCAINE 5% (700 MG) TRANSDERMAL ADH..PATCH TP ONE (06:19)
[2016-06-03] MEDS ORDERED: KETOROLAC TROMETHAMINE 60 MG/2 ML SDV IM ONE (06:19)
--- NOTE | 2016-06-03 06:25 | ER Document Report ---
ED General - General Chief Complaint: Leg Pain Stated Complaint: BACK AND LEG PAIN TRAVEL OUTSIDE OF THE [place] IN LAST 30 DAYS: No - Related Data Allergies/Adverse Reactions: hydrocodone [Hydrocodone] Allergy (Severe, Verified 05/12/16 01:59) sertraline HCl [From Zoloft] Allergy (Severe, Verified 05/12/16 01:59) hives, resp arrest propranolol HCl [From Inderal] Allergy (Intermediate, Verified 05/12/16 01:59) Hives lamotrigine [From Lamictal] Allergy (Verified 05/12/16 01:59) propranolol Allergy (Verified 05/12/16 01:59) Home Medications: Current Home Medications Alprazolam [Alprazolam] 1 mg PO TID 06/03/16 [History] Gabapentin [Gabapentin] 1 tab PO DAILY 06/03/16 [History] Levothyroxine Sodium 1 tab PO QAM 06/03/16 [History] Oxycodone HCl/Acetaminophen [Oxycodone-Acetaminophen 5-325] 1 each PO Q8HP PRN 06/03/16 [History] Tizanidine HCl [Tizanidine HCl] 1 tab PO Q8H 06/03/16 [History] Past Medical History - Social History Smoking Status: Never Smoker Cigarette use (# per day): No Chew tobacco use (# tins/day): No Frequency of alcohol use: Occasional Drug Abuse: None Family History: Arthritis, CVA, Hyperlipidemia, Hypertension, Malignancy, Thyroid Disfunction - Past Medical History Cardiac Medical History: Reports: Hx Hypercholesterolemia, Hx Hypertension Pulmonary Medical History: Reports: Hx Asthma Denies: Hx Tuberculosis Neurological Medical History: Reports: Hx Cerebrovascular Accident, Hx Migraine Endocrine Medical History: Reports: Hx HypothyroidismComment Only: Hx Diabetes Mellitus Type 2 - borderline Renal/ Medical History: Denies: Hx Peritoneal Dialysis GI Medical History: Reports: Hx Gastroesophageal Reflux Disease Musculoskeltal Medical History: Reports Hx Arthritis, Reports Hx Musculoskeletal Deformity, Reports Hx Musculoskeletal Trauma Psychiatric Medical History: Reports: Hx Bipolar Disorder, Hx Depression, Hx Schizophrenia Past Surgical History: Reports: Hx Appendectomy - Ex Lap, Hx Section, Hx Gynecologic Surgery - hyst, Hx Hysterectomy, Hx Thyroid Surgery, Hx Tonsillectomy - Immunizations Immunizations up to date: Yes Hx Diphtheria, Pertussis, Tetanus Vaccination: Yes Hx Pneumococcal Vaccination: 12/15/15 Physical Exam - Vital signs Vitals: Temp Pulse Resp BP Pulse Ox 97.8 F 75 17 146/91 H 98 06/03/16 03:56 06/03/16 03:56 06/03/16 03:56 06/03/16 03:56 06/03/16 03:56 Course - Vital Signs Vital signs: Temp Pulse Resp BP Pulse Ox 97.8 F 75 17 146/91 H 98 06/03/16 03:56 06/03/16 03:56 06/03/16 03:56 06/03/16 03:56 06/03/16 03:56 Discharge - Discharge Clinical Impression: Low back pain Qualifiers: Chronicity: acute Back pain laterality: right Sciatica presence: with sciatica Sciatica laterality: sciatica of right side Qualified Code(s): M54.41 - Lumbago with sciatica, right side Condition: Good Disposition: HOME, SELF-CARE Instructions: Low Back Pain ([facility]), Stretching Exercises for the Back ([facility]), Chronic Back Pain ([facility]), Chronic Pain Control ([facility]) Additional Instructions: Your symptoms are consistent with sciatica. Please make sure that she follow- up with your primary care physician and your neurosurgeon as scheduled. I will call your primary care physician and your pain profile mill operator tape control on Saturday for possible adjustment of your medications. Return to the ER if symptoms worsen Prescriptions: Ibuprofen [Motrin 600 mg Tablet] 600 mg PO Q8HP PRN #90 tablet PRN Reason: Lidocaine [Lidoderm 5% (700 mg) Transdermal Patch] 1 patch TP DAILY #30 adh..patch Prednisone [Deltasone 20 mg Tablet] 60 mg PO DAILY 5 Days Referrals: YEE LEONARD PA-C [Primary Care Provider] - Follow up in 3-5 days
[2016-06-03 06:40] VITALS: BP 126/90
--- NOTE | 2016-06-03 08:46 | ER Document Report ---
ED General - General Chief Complaint: Leg Pain Stated Complaint: BACK AND LEG PAIN TRAVEL OUTSIDE OF THE [place] IN LAST 30 DAYS: No - HPI Patient complains to provider of: right buttocks right leg low back. Onset: Just prior to arrival Notes: Patient coming in for acute exacerbation of chronic back pain. Patient recently had an MRI performed by her PCP showing some mild lumbar disease. Patient supposed to follow-up with neurosurgery at [facility] and the next few days. Patient is currently on chronic pain management. Patient states symptoms started prior to arrival no trauma patient denies any numbness or tingling states that she has shooting pain going down the back of her right leg that started a buttocks. Patient states after receiving MRI results she did follow up with her PCP discharge her on steroids however states that she did not take her steroids. Patient denies any fevers chills nausea vomiting denies any bowel or bladder incontinence. Denies any numbness or tingling in the perineal region - Related Data Allergies/Adverse Reactions: hydrocodone [Hydrocodone] Allergy (Severe, Verified 05/12/16 01:59) sertraline HCl [From Zoloft] Allergy (Severe, Verified 05/12/16 01:59) hives, resp arrest propranolol HCl [From Inderal] Allergy (Intermediate, Verified 05/12/16 01:59) Hives lamotrigine [From Lamictal] Allergy (Verified 05/12/16 01:59) propranolol Allergy (Verified 05/12/16 01:59) Home Medications: Current Home Medications Alprazolam [Alprazolam] 1 mg PO TID 06/03/16 [History] Gabapentin [Gabapentin] 1 tab PO DAILY 06/03/16 [History] Levothyroxine Sodium 1 tab PO QAM 06/03/16 [History] Oxycodone HCl/Acetaminophen [Oxycodone-Acetaminophen 5-325] 1 each PO Q8HP PRN 06/03/16 [History] Tizanidine HCl [Tizanidine HCl] 1 tab PO Q8H 06/03/16 [History] Past Medical History - Social History Smoking Status: Never Smoker Cigarette use (# per day): No Chew tobacco use (# tins/day): No Frequency of alcohol use: Occasional Drug Abuse: None Family History: Arthritis, CVA, Hyperlipidemia, Hypertension, Malignancy, Thyroid Disfunction - Past Medical History Cardiac Medical History: Reports: Hx Hypercholesterolemia, Hx Hypertension Pulmonary Medical History: Reports: Hx Asthma Denies: Hx Tuberculosis Neurological Medical History: Reports: Hx Cerebrovascular Accident, Hx Migraine Endocrine Medical History: Reports: Hx HypothyroidismComment Only: Hx Diabetes Mellitus Type 2 - borderline Renal/ Medical History: Denies: Hx Peritoneal Dialysis GI Medical History: Reports: Hx Gastroesophageal Reflux Disease Musculoskeltal Medical History: Reports Hx Arthritis, Reports Hx Musculoskeletal Deformity, Reports Hx Musculoskeletal Trauma Psychiatric Medical History: Reports: Hx Bipolar Disorder, Hx Depression, Hx Schizophrenia Past Surgical History: Reports: Hx Appendectomy - Ex Lap, Hx Section, Hx Gynecologic Surgery - hyst, Hx Hysterectomy, Hx Thyroid Surgery, Hx Tonsillectomy - Immunizations Immunizations up to date: Yes Hx Diphtheria, Pertussis, Tetanus Vaccination: Yes Hx Pneumococcal Vaccination: 12/15/15 Review of Systems - Review of Systems Constitutional: No symptoms reported EENT: No symptoms reported Cardiovascular: No symptoms reported Respiratory: No symptoms reported Gastrointestinal: No symptoms reported Genitourinary: No symptoms reported Female Genitourinary: No symptoms reported Musculoskeletal: Back pain Skin: No symptoms reported Hematologic/Lymphatic: No symptoms reported Neurological/Psychological: No symptoms reported -: Yes All other systems reviewed and negative Physical Exam - Vital signs Vitals: Temp Pulse Resp BP Pulse Ox 97.8 F 75 17 146/91 H 98 06/03/16 03:56 06/03/16 03:56 06/03/16 03:56 06/03/16 03:56 06/03/16 03:56 Interpretation: Normal - General General appearance: Appears well, Alert - HEENT Head: Normocephalic, Atraumatic Eyes: Normal Pupils: PERRL - Respiratory Respiratory status: No respiratory distress Chest status: Nontender Breath sounds: Normal Chest palpation: Normal - Cardiovascular Rhythm: Regular Heart sounds: Normal auscultation Murmur: No - Abdominal Inspection: Normal Distension: No distension Bowel sounds: Normal Tenderness: Nontender Organomegaly: No organomegaly - Back Back: Normal, Nontender - Extremities General upper extremity: Normal inspection, Nontender, Normal color, Normal ROM , Normal temperature General lower extremity: Normal inspection, Nontender, Normal color, Normal ROM , Normal temperature, Normal weight bearing. No: Juliana's sign - Neurological Neuro grossly intact: Yes Cognition: Normal Orientation: AAOx4 [place] Coma Scale Eye Opening: Spontaneous [place] Coma Scale Verbal: Oriented Vicky Coma Scale Motor: Obeys Commands [place] Coma Scale Total: 15 Speech: Normal Motor strength normal: LUE, RUE, LLE, RLE Sensory: Normal Knee - Reflex grade: 2 = Normal - Psychological Associated symptoms: Normal affect, Normal mood - Skin Skin Temperature: Warm Skin Moisture: Dry Skin Color: Normal Course - Re-evaluation Re-evalutation: 06/03/16 08:45 The patient presents with low back pain without signs of spinal cord compression , cauda equina syndrome, infection, aneurysm, or other serious etiology. The patient is neurologically intact. Given the extremely low risk of these diagnoses further testing and evaluation for these possibilities does not appear to be indicated at this time. The patient has been instructed to return if the symptoms worsen or change in any way. .. Patient has no significant pathology at this time no emergent need is seen patient will be given pain control using nonnarcotic modalities patient was encouraged follow-up with her primary care and her pain control Dr. - Vital Signs Vital signs: Temp Pulse Resp BP Pulse Ox 97.9 F 66 16 126/90 H 96 06/03/16 06:37 06/03/16 06:37 06/03/16 06:37 06/03/16 06:37 06/03/16 06:37 Discharge - Discharge Clinical Impression: Low back pain Qualifiers: Chronicity: acute Back pain laterality: right Sciatica presence: with sciatica Sciatica laterality: sciatica of right side Qualified Code(s): M54.41 - Lumbago with sciatica, right side Condition: Good Disposition: HOME, SELF-CARE Instructions: Chronic Back Pain ([facility]), Chronic Pain Control ([facility]), Low Back Pain ([facility]), Stretching Exercises for the Back ([facility]) Additional Instructions: Your symptoms are consistent with sciatica. Please make sure that she follow- up with your primary care physician and your neurosurgeon as scheduled. I will call your primary care physician and your pain control board operator on Saturday for possible adjustment of your medications. Return to the ER if symptoms worsen Prescriptions: Ibuprofen [Motrin 600 mg Tablet] 600 mg PO Q8HP PRN #90 tablet PRN Reason: Lidocaine [Lidoderm 5% (700 mg) Transdermal Patch] 1 patch TP DAILY #30 adh..patch Prednisone [Deltasone 20 mg Tablet] 60 mg PO DAILY 5 Days Referrals: YEE LEONARD PA-C [Primary Care Provider] - Follow up in 3-5 days
== END 2016-06-03 06:40 | disposition home or self-care (01) ==
LOC: ER 03:53
DX: M54.41 Lumbago with sciatica, right side (principal); G89.29 Other chronic pain; Z91.14 Patient's other noncompliance with medication regimen; I10 Essential (primary) hypertension; J45.909 Unspecified asthma, uncomplicated; Z86.73 Personal history of transient ischemic attack (TIA), and cerebral infarction without residual deficits; Z88.5 Allergy status to narcotic agent; Z88.8 Allergy status to other drugs, medicaments and biological substances
CPT/HCPCS: 99283; 96372; J1885; A9270; J7512

== ENCOUNTER 2016-06-04 06:52 | Emergency (ER) | payer MEDICARE, MEDICAID ==
--- NOTE | 2016-06-04 10:47 | ER Document Report ---
HPI - HPI Patient complains to provider of: chronic back pain Onset: Other - years Onset/Duration: Constant, Persistent Quality of pain: Throbbing Pain Level: 4 Context: 60 yo female with chronic lumbar back pain with radiculopahty into right lateral leg states that her PCP and neurosurgeon that she has been referred to will not prescribe pain medication for her. She is requesting hydrocodone to felieve the pain. No new pain . No fever. No saddle anesthesia. able to walk. She was in ER yesterday and saw Dr. Gill who would not prescribe pain medication eigher. Crying. Associated Symptoms: None Exacerbated by: Sitting, Standing, Movement, Walking Relieved by: Other - hydrocodone Similar symptoms previously: Yes Recently seen / treated by doctor: Yes - ROS ROS below otherwise negative: Yes Systems Reviewed and Negative: Yes All other systems reviewed and negative - RESPIRATORY Respiratory: DENIES: Trouble Breathing, Coughing - GASTROINTESTINAL Gastrointestinal: DENIES: Nausea, Patient vomiting, Diarrhea, Constipation - URINARY Urinary: DENIES: Dysuria, Urgency, Frequency - REPRODUCTIVE Reproductive: DENIES: : - MUSCULOSKELETAL Musculoskeletal: REPORTS: Back Pain - DERM Skin Color: Normal Skin Problems: None - NURSING COMMENTS Comment: A/Ox3 calm cooperative. Repositions self in stretcher. Reports chronic back pain that has gotten worse over past few days. Denies new fall/injury. reports was seen yesterday, but cannot afford the Lidocaine patches that she was prescribed. NAD noted at this time. Past Medical History - General Information source: Patient Last Menstrual Period: NA - Social History Smoking Status: Former Smoker Chew tobacco use (# tins/day): No Frequency of alcohol use: None Drug Abuse: None Lives with: Spouse/Significant other Family History: Arthritis, CVA, Hyperlipidemia, Hypertension, Malignancy, Thyroid Disfunction - Past Medical History Cardiac Medical History: Reports: Hx Hypercholesterolemia, Hx Hypertension Pulmonary Medical History: Reports: Hx Asthma Neurological Medical History: Reports: Hx Cerebrovascular Accident, Hx Migraine Endocrine Medical History: Reports: Hx HypothyroidismComment Only: Hx Diabetes Mellitus Type 2 - borderline Renal/ Medical History: Denies: Hx Peritoneal Dialysis GI Medical History: Reports: Hx Gastroesophageal Reflux Disease Musculoskeltal Medical History: Reports Hx Arthritis, Reports Hx Musculoskeletal Deformity, Reports Hx Musculoskeletal Trauma Psychiatric Medical History: Reports: Hx Bipolar Disorder, Hx Depression, Hx Schizophrenia Past Surgical History: Reports: Hx Appendectomy - Ex Lap, Hx Section, Hx Gynecologic Surgery - hyst, Hx Hysterectomy, Hx Thyroid Surgery, Hx Tonsillectomy - Immunizations Immunizations up to date: Yes Hx Diphtheria, Pertussis, Tetanus Vaccination: Yes Hx Pneumococcal Vaccination: 12/15/15 Vertical Provider Document - CONSTITUTIONAL Agree With Documented VS: Yes Exam Limitations: No Limitations General Appearance: Other - crying, distraught - INFECTION CONTROL TRAVEL OUTSIDE OF THE [place] IN LAST 30 DAYS: No - HEENT HEENT: Normocephalic - NECK Neck: Supple - RESPIRATORY Respiratory: Breath Sounds Normal, No Respiratory Distress O2 Sat by Pulse Oximetry: 98 - CARDIOVASCULAR Cardiovascular: Regular Rate, Regular Rhythm - GI/ABDOMEN Gastrointestinal: Abdomen Soft, Abdomen Non-Tender, No Organomegaly - BACK Back: Normal Inspection - MUSCULOSKELETAL/EXTREMETIES Musculoskeletal/Extremeties: MAEW, FROM, Tender - right lumbosacaral back - NEURO Level of Consciousness: Awake, Alert Motor/Sensory: No Motor Deficit, No Sensory Deficit Deep Tendon Reflexes: 2+ - abdirahman ankle and patellar - DERM Integumentary: Warm, Dry, No Rash Course - Re-evaluation Re-evalutation: 06/04/16 11:16 Patient asking for hydrocodone. I told her we can prescribe some Ultram. She is willing to try that. Her primary care doctor nor Dr. Carlo peoples the neurosurgeon will prescribe opiates for the patient. - Vital Signs Vital signs: Temp Pulse Resp BP Pulse Ox 98.0 F 86 20 139/89 H 98 06/04/16 07:08 06/04/16 07:08 06/04/16 07:08 06/04/16 07:08 06/04/16 07:08 Discharge - Discharge Clinical Impression: elevated blood pressure reading Chronic back pain Qualifiers: Back pain location: low back pain Back pain laterality: right Sciatica presence : with sciatica Sciatica laterality: sciatica of right side Qualified Code(s): M54.41 - Lumbago with sciatica, right side Sciatica Qualifiers: Laterality: right Qualified Code(s): M54.31 - Sciatica, right side Condition: Good Disposition: HOME, SELF-CARE Instructions: Low Back Pain ([facility]), Chronic Back Pain ([facility]), Ultram ([facility]), Acetaminophen Additional Instructions: see your doctor for further pain medicatin for this chronic back pain, and blood pressure recheck to er if worse recheck your blood pressure tomorrow take your blood pressure medication as prescribed Prescriptions: Tramadol HCl [Ultram 50 mg Tablet] 50 mg PO ASDIR PRN #20 tablet PRN Reason:
[2016-06-04] MEDS ORDERED: TRAMADOL HCL 50 MG TABLET PO ONE (11:15)
[2016-06-04 11:16] VITALS: BP 159/107
== END 2016-06-04 11:45 | disposition home or self-care (01) ==
LOC: ER 06:52
DX: M54.41 Lumbago with sciatica, right side (principal); I10 Essential (primary) hypertension; E78.00 Pure hypercholesterolemia, unspecified; E03.9 Hypothyroidism, unspecified; R73.03 Prediabetes; Z86.73 Personal history of transient ischemic attack (TIA), and cerebral infarction without residual deficits; Z90.710 Acquired absence of both cervix and uterus
CPT/HCPCS: 99283; A9270

== ENCOUNTER 2016-06-28 06:27 | Emergency (ER) | payer MEDICARE ==
[2016-06-28] MEDS ORDERED: TRAMADOL HCL 50 MG TABLET PO ONE (09:03)
--- NOTE | 2016-06-28 10:09 | ER Document Report ---
HPI - HPI Patient complains to provider of: low back pain Onset: Yesterday Onset/Duration: Gradual Quality of pain: Achy Pain Level: 3 Context: Patient states she has a history of chronic low back pain. Patient states that she was cleaning yesterday and aggravated her chronic back pain. Patient states pain is in typical location of her usual symptoms. Patient denies any fever or urinary symptoms. Patient denies any radiculopathy or paresthesia at this time. Patient denies any fever - REPRODUCTIVE LMP: na Reproductive: DENIES: : - DERM Skin Color: Normal Past Medical History - Social History Smoking Status: Never Smoker Chew tobacco use (# tins/day): No Frequency of alcohol use: Occasional Drug Abuse: None Family History: Arthritis, CVA, Hyperlipidemia, Hypertension, Malignancy, Thyroid Disfunction Patient has suicidal ideation: No Patient has homicidal ideation: No - Past Medical History Cardiac Medical History: Reports: Hx Hypercholesterolemia, Hx Hypertension Pulmonary Medical History: Reports: Hx Asthma Denies: Hx Tuberculosis Neurological Medical History: Reports: Hx Cerebrovascular Accident, Hx Migraine Endocrine Medical History: Reports: Hx HypothyroidismComment Only: Hx Diabetes Mellitus Type 2 - borderline Renal/ Medical History: Denies: Hx Peritoneal Dialysis GI Medical History: Reports: Hx Gastroesophageal Reflux Disease Musculoskeltal Medical History: Reports Hx Arthritis, Reports Hx Musculoskeletal Deformity, Reports Hx Musculoskeletal Trauma Psychiatric Medical History: Reports: Hx Bipolar Disorder, Hx Depression, Hx Schizophrenia Past Surgical History: Reports: Hx Appendectomy - Ex Lap, Hx Section, Hx Gynecologic Surgery - hyst, Hx Hysterectomy, Hx Thyroid Surgery, Hx Tonsillectomy - Immunizations Immunizations up to date: Yes Hx Diphtheria, Pertussis, Tetanus Vaccination: Yes Hx Pneumococcal Vaccination: 12/15/15 Vertical Provider Document - CONSTITUTIONAL Agree With Documented VS: Yes Exam Limitations: No Limitations General Appearance: WD/WN Notes: PHYSICAL EXAMINATION: GENERAL: Well-appearing, well-nourished and in no acute distress. HEAD: Atraumatic, normocephalic. EYES: sclera clear, anicteric, conjunctiva are normal. ENT: nares patent, Moist mucous membranes. NECK: Normal range of motion, supple no lymphadenopathy LUNGS: respirations unlabored HEART: Regular rate and rhythm without murmurs EXTREMITIES: Normal range of motion, no pitting or edema. No cyanosis. Gait normal, pt ambulates without difficulty, patient able to dorsiflex great toe bilateral feet BACK: Lower lumbar midline tenderness, no deformities or step-offs. No CVA tenderness. NEUROLOGICAL: Cranial nerves grossly intact. Normal speech, normal gait. No saddle anesthesia. Negative straight leg test bilaterally PSYCH: Normal mood, normal affect. SKIN: Warm, Dry, normal turgor, no rashes or lesions noted. - INFECTION CONTROL TRAVEL OUTSIDE OF THE [place] IN LAST 30 DAYS: No - RESPIRATORY O2 Sat by Pulse Oximetry: 98 Course - Re-evaluation Re-evalutation: 06/28/16 10:07 The patient that emergency department does not refill pain medications. Patient does have an appointment with her neuro water pollution specialist on 07/05/2016. Patient also has referral for pain management. Patient encouraged to follow- up with her primary doctor as well as pain management doctor for a recheck. Discussed worsening signs or symptoms that patient should return immediately for , patient verbalized understanding and agrees with plan of care. - Vital Signs Vital signs: Temp Pulse Resp BP Pulse Ox 98.0 F 88 18 138/99 H 98 06/28/16 06:34 06/28/16 06:34 06/28/16 06:34 06/28/16 06:34 06/28/16 06:34 - Diagnostic Test Radiology reviewed: Reports reviewed - Patient brought a copy of her MRI that was performed on 05/11/2016 a copy has been placed in the medical record Discharge - Discharge Clinical Impression: Low back pain Qualifiers: Chronicity: unspecified Back pain laterality: unspecified Sciatica presence: without sciatica Qualified Code(s): M54.5 - Low back pain Condition: Stable Disposition: HOME, SELF-CARE Instructions: Ultram ([facility]) Additional Instructions: Return immediately for any new or worsening symptoms Followup with your primary care provider, call tomorrow to make a followup appointment Follow-up with your pain management doctor for further evaluation The Emergency department does not refill pain medications for chronic conditions. LOW BACK PAIN: Three out of every four people will have an episode of disabling back pain during their lifetime. Most commonly the pain is due to straining of the muscles and ligaments in the low back. Usual treatment includes: (1) Rest on a firm surface. Avoid lying on your stomach. (2) Ice pack the painful area. After a few days, gentle heat may be used intermittently to relax the area, or ice packs can be continued. (3) Medication may be needed -- muscle relaxers and antiinflammatory medicines are commonly used. (4) As the back improves, exercises are prescribed to strengthen the back and abdominal muscles. Your doctor will advise you on the proper care for your back at each stage in your recovery. You may be better in a few days -- or healing may take several weeks. If new symptoms of a "herniated disc" (radiation of pain, numbness, or tingling down the back of the leg or weakness in the leg) occur, you should be re-examined. Further testing may be necessary. ICE PACKS: Apply ice packs frequently against the painful area. Many different schedules are recommended, such as "20 minutes on, 20 minutes off" or "one hour ice, two hours rest." If you need to work, you may need to go longer between ice treatments. You should plan to have the area ice packed AT LEAST one fourth of the time. The ice should be applied over the wrap, tape, or splint, or over a layer of cloth -- not directly against the skin. Some ice bags have a built-in cloth and can be put directly on the skin. WARM PACKS: After approximately two days, apply gentle heat (such as a heating pad or hot water bottle) for about 20 to 30 minutes about every two hours -- at least four times daily. Warmth and elevation will help you make a more rapid recovery , and will ease the pain considerably. Do not use HOT heat, and never apply heat for longer than 30 minutes. The continuous heat can invisibly damage skin and muscles -- even when no burn is seen on the surface. Damaged muscles can make you MORE sore. FOLLOW-UP CARE: If you have been referred to a physician for follow-up care, call the physician s office for an appointment as you were instructed or within the next two days. If you experience worsening or a significant change in your symptoms, notify the physician immediately or return to the Emergency Department at any time for re-evaluation. Prescriptions: Tramadol HCl [Ultram 50 mg Tablet] 50 mg PO ASDIR PRN #8 tablet PRN Reason: Referrals: YEE LEONARD PA-C [Primary Care Provider] - Follow up tomorrow
[2016-06-28 10:25] VITALS: BP 148/95
== END 2016-06-28 10:25 | disposition home or self-care (01) ==
LOC: ER 06:27
DX: G89.29 Other chronic pain (principal); M54.5 Low back pain; E78.00 Pure hypercholesterolemia, unspecified; I10 Essential (primary) hypertension; E03.9 Hypothyroidism, unspecified; R73.03 Prediabetes; K21.9 Gastro-esophageal reflux disease without esophagitis; Z86.73 Personal history of transient ischemic attack (TIA), and cerebral infarction without residual deficits; Z90.710 Acquired absence of both cervix and uterus
CPT/HCPCS: 99283; A9270

== ENCOUNTER 2016-07-01 12:43 | Emergency (ER) | payer MEDICARE ==
[2016-07-01 12:50] VITALS: BP 135/87
--- NOTE | 2016-07-01 12:50 | ER Document Report ---
ED Medical Screen (RME) - General Stated Complaint: RIGHT LEG PAIN Notes: Patient is a 52-year-old female presents emergency Department complaining of right leg pain. Patient states that she had a bump on her leg for about one year that has been painless. Sent for a venous Doppler on Saturday by primary care to evaluate for DVT. She has not heard back on the results of this study. Patient states that she had worsening pain and swelling of the site that started yesterday. Patient is a nonsmoker, denies any recent travel or surgery, not on control. I have greeted and performed a rapid initial assessment of this patient. A comprehensive ED assessment and evaluation of the patient, analysis of test results and completion of the medical decision making process will be conducted by additional ED providers. TRAVEL OUTSIDE OF THE [place] IN LAST 30 DAYS: No - Related Data Allergies/Adverse Reactions: hydrocodone [Hydrocodone] Allergy (Severe, Verified 07/01/16 12:47) sertraline HCl [From Zoloft] Allergy (Severe, Verified 07/01/16 12:47) hives, resp arrest propranolol HCl [From Inderal] Allergy (Intermediate, Verified 07/01/16 12:47) Hives lamotrigine [From Lamictal] Allergy (Verified 07/01/16 12:47) propranolol Allergy (Verified 07/01/16 12:47) Past Medical History - Past Medical History Cardiac Medical History: Reports: Hx Hypercholesterolemia, Hx Hypertension Pulmonary Medical History: Reports: Hx Asthma Denies: Hx Tuberculosis Neurological Medical History: Reports: Hx Cerebrovascular Accident, Hx Migraine Endocrine Medical History: Reports: Hx HypothyroidismComment Only: Hx Diabetes Mellitus Type 2 - borderline Renal/ Medical History: Denies: Hx Peritoneal Dialysis GI Medical History: Reports: Hx Gastroesophageal Reflux Disease Musculoskeltal Medical History: Reports Hx Arthritis, Reports Hx Musculoskeletal Deformity, Reports Hx Musculoskeletal Trauma Psychiatric Medical History: Reports: Hx Bipolar Disorder, Hx Depression, Hx Schizophrenia Past Surgical History: Reports: Hx Appendectomy - Ex Lap, Hx Section, Hx Gynecologic Surgery - hyst, Hx Hysterectomy, Hx Thyroid Surgery, Hx Tonsillectomy - Immunizations Immunizations up to date: Yes Hx Diphtheria, Pertussis, Tetanus Vaccination: Yes
[2016-07-01] MEDS ORDERED: OXYCODONE-ACETAMINOPHEN 5-325 MG TABLET PO ONE (13:34)
[2016-07-01] MEDS ORDERED: ONDANSETRON 4 MG TAB.RAPDIS PO ONE (13:35)
--- NOTE | 2016-07-01 13:50 | ER Document Report ---
ED Extremity Problem, Lower - General Chief Complaint: Leg Pain Stated Complaint: RIGHT LEG PAIN Notes: 60 yo female c/o pain to right lower lateral chin x 1 year but pain has intensified x 3 days. pt had doppler of that area done at [facility] on Saturday but no results yet. pt is concerned about a blood clot. pt denies any chest pain or shortness of breath. no prolonged trips, trauma, surgery, OCP. Pt has appointment with [facility] tomorrow morning @ 0800 for results TRAVEL OUTSIDE OF THE [place] IN LAST 30 DAYS: No - HPI Patient complains to provider of: Pain, Swelling Location: Leg Occurred: Other - pain x 1 yr, worse x 3 days Onset/Duration: Gradual Quality of pain: Pressure Pain Level: 5 Recent injury: No Associated symptoms: Painful ambulation. denies: Chest pain, Chills, Dizzy, Hurts to breath Exacerbated by: Walking Relieved by: Nothing - Related Data Allergies/Adverse Reactions: hydrocodone [Hydrocodone] Allergy (Severe, Verified 07/01/16 12:47) sertraline HCl [From Zoloft] Allergy (Severe, Verified 07/01/16 12:47) hives, resp arrest propranolol HCl [From Inderal] Allergy (Intermediate, Verified 07/01/16 12:47) Hives lamotrigine [From Lamictal] Allergy (Verified 07/01/16 12:47) propranolol Allergy (Verified 07/01/16 12:47) Past Medical History - General Information source: Patient - Social History Smoking Status: Unknown if Ever Smoked Chew tobacco use (# tins/day): No Frequency of alcohol use: Occasional Drug Abuse: None Lives with: Family Family History: Arthritis, CVA, Hyperlipidemia, Hypertension, Malignancy, Thyroid Disfunction Patient has suicidal ideation: No Patient has homicidal ideation: No - Past Medical History Cardiac Medical History: Reports: Hx Hypercholesterolemia, Hx Hypertension Pulmonary Medical History: Reports: Hx Asthma Denies: Hx Tuberculosis Neurological Medical History: Reports: Hx Cerebrovascular Accident, Hx Migraine Endocrine Medical History: Reports: Hx HypothyroidismComment Only: Hx Diabetes Mellitus Type 2 - borderline Renal/ Medical History: Denies: Hx Peritoneal Dialysis GI Medical History: Reports: Hx Gastroesophageal Reflux Disease Musculoskeltal Medical History: Reports Hx Arthritis, Reports Hx Musculoskeletal Deformity, Reports Hx Musculoskeletal Trauma Psychiatric Medical History: Reports: Hx Bipolar Disorder, Hx Depression, Hx Schizophrenia Past Surgical History: Reports: Hx Appendectomy - Ex Lap, Hx Section, Hx Gynecologic Surgery - hyst, Hx Hysterectomy, Hx Thyroid Surgery, Hx Tonsillectomy - Immunizations Immunizations up to date: Yes Hx Diphtheria, Pertussis, Tetanus Vaccination: Yes Hx Pneumococcal Vaccination: 12/15/15 Review of Systems - Review of Systems Constitutional: No symptoms reported EENT: No symptoms reported Cardiovascular: No symptoms reported Respiratory: No symptoms reported Gastrointestinal: No symptoms reported Genitourinary: No symptoms reported Female Genitourinary: No symptoms reported Musculoskeletal: No symptoms reported Skin: No symptoms reported Hematologic/Lymphatic: No symptoms reported Neurological/Psychological: No symptoms reported Physical Exam - Vital signs Vitals: Temp Pulse Resp BP Pulse Ox 98.6 F 107 H 22 H 135/87 H 96 07/01/16 12:48 07/01/16 12:48 07/01/16 12:48 07/01/16 12:48 07/01/16 12:48 Interpretation: Normal - General General appearance: Appears well, Alert - HEENT Head: Normocephalic, Atraumatic Eyes: Normal Pupils: PERRL - Respiratory Respiratory status: No respiratory distress Chest status: Nontender Breath sounds: Normal Chest palpation: Normal - Cardiovascular Rhythm: Regular Heart sounds: Normal auscultation Murmur: No - Abdominal Inspection: Normal Distension: No distension Bowel sounds: Normal Tenderness: Nontender Organomegaly: No organomegaly - Back Back: Normal, Nontender - Extremities General upper extremity: Normal inspection, Nontender, Normal color, Normal ROM , Normal temperature General lower extremity: Tender - right lateral davidson with focal tenderness. mild soft tissue swelling. no erythema or heat. distal SMC intact, Juliana's sign - Neurological Neuro grossly intact: Yes Cognition: Normal Orientation: AAOx4 Vicky Coma Scale Eye Opening: Spontaneous Vicky Coma Scale Verbal: Oriented Vicky Coma Scale Motor: Obeys Commands Vicky Coma Scale Total: 15 Speech: Normal Motor strength normal: LUE, RUE, LLE, RLE Sensory: Normal - Psychological Associated symptoms: Normal affect, Normal mood - Skin Skin Temperature: Warm Skin Moisture: Dry Skin Color: Normal Course - Re-evaluation Re-evalutation: 07/01/16 13:56 low suspicion DVT. unable to access CDI results. discussed with Dr Salgado, agrees to discharge patient with symptomatic support and have patient follow up tomorrow morning for results. pt agreeable with plan - Vital Signs Vital signs: Temp Pulse Resp BP Pulse Ox 98.6 F 107 H 22 H 135/87 H 96 07/01/16 12:48 07/01/16 12:48 07/01/16 12:48 07/01/16 12:48 07/01/16 12:48 Discharge - Discharge Clinical Impression: Lower leg pain Qualifiers: Laterality: left Qualified Code(s): M79.662 - Pain in left lower leg Condition: Stable Disposition: HOME, SELF-CARE Instructions: Oral Narcotic Medication ([facility]), Elevation & Warmth ([facility]) Additional Instructions: take pain meds as needed keep leg elevated as much as possible follow up with primary care in am as scheduled return to ER for any worsening of status Prescriptions: Tramadol HCl [Ultram 50 mg Tablet] 50 mg PO ASDIR PRN #20 tablet PRN Reason:
== END 2016-07-01 14:20 | disposition home or self-care (01) ==
LOC: ER 12:43
DX: M79.661 Pain in right lower leg (principal); E78.00 Pure hypercholesterolemia, unspecified; I10 Essential (primary) hypertension; E03.9 Hypothyroidism, unspecified; K21.9 Gastro-esophageal reflux disease without esophagitis; Z86.73 Personal history of transient ischemic attack (TIA), and cerebral infarction without residual deficits; Z88.6 Allergy status to analgesic agent; Z90.710 Acquired absence of both cervix and uterus
CPT/HCPCS: 99283; A9270 ×2; S0119

== ENCOUNTER 2016-07-21 20:32 | Emergency (ER) | payer MEDICARE ==
--- NOTE | 2016-07-21 21:01 | ER Document Report ---
ED Medical Screen (RME) - General Stated Complaint: LEG PAIN Mode of Arrival: Ambulatory Information source: Patient Notes: Pt presents with back pain from herniated discs. denies urinary/bowel incontinence/retention. reports this is the same pain she has been dealing with since april. she is scheduled for neuo in [place]. here for pain, requesting tramadol. TRAVEL OUTSIDE OF THE [place] IN LAST 30 DAYS: No - Related Data Allergies/Adverse Reactions: hydrocodone [Hydrocodone] Allergy (Severe, Verified 07/01/16 12:47) sertraline HCl [From Zoloft] Allergy (Severe, Verified 07/01/16 12:47) hives, resp arrest propranolol HCl [From Inderal] Allergy (Intermediate, Verified 07/01/16 12:47) Hives lamotrigine [From Lamictal] Allergy (Verified 07/01/16 12:47) propranolol Allergy (Verified 07/01/16 12:47) Past Medical History - Past Medical History Cardiac Medical History: Reports: Hx Hypercholesterolemia, Hx Hypertension Pulmonary Medical History: Reports: Hx Asthma Denies: Hx Tuberculosis Neurological Medical History: Reports: Hx Cerebrovascular Accident, Hx Migraine Endocrine Medical History: Reports: Hx HypothyroidismComment Only: Hx Diabetes Mellitus Type 2 - borderline Renal/ Medical History: Denies: Hx Peritoneal Dialysis GI Medical History: Reports: Hx Gastroesophageal Reflux Disease Musculoskeltal Medical History: Reports Hx Arthritis, Reports Hx Musculoskeletal Deformity, Reports Hx Musculoskeletal Trauma Psychiatric Medical History: Reports: Hx Bipolar Disorder, Hx Depression, Hx Schizophrenia Past Surgical History: Reports: Hx Appendectomy - Ex Lap, Hx Section, Hx Gynecologic Surgery - hyst, Hx Hysterectomy, Hx Thyroid Surgery, Hx Tonsillectomy - Immunizations Immunizations up to date: Yes Hx Diphtheria, Pertussis, Tetanus Vaccination: Yes
[2016-07-21] MEDS ORDERED: TRAMADOL HCL 50 MG TABLET PO ONE (22:16)
[2016-07-21 22:42] LABS: APPEARANCE,URINE CLEAR; BILIRUBIN,URINE NEGATIVE (NEGATIVE); GLUCOSE, URINE NEGATIVE (NEGATIVE); KETONES,URINE NEGATIVE (NEGATIVE); LEUKOCYTE ESTERASE,URINE NEGATIVE (NEGATIVE); NITRITE,URINE NEGATIVE (NEGATIVE); PROTEIN,URINE NEGATIVE (NEGATIVE); URINE SPECIFIC GRAVITY 1.008; UROBILINOGEN,URINE NEGATIVE mg/dL (<2.0)
--- NOTE | 2016-07-21 22:56 | ER Document Report ---
HPI - HPI Patient complains to provider of: back pain Onset: Other - since april Onset/Duration: Persistent Quality of pain: Achy Severity: Severe Pain Level: 5 Context: She presents to the emergency department with complaints of chronic low back pain since April. She reports she had MRIs done and herniated disc were noted. She reports she is being treated by a provider and is to follow-up next week with neurosurgery. She denies urinary or bowel incontinence or retention. She denies numbness or tingling. She reports she was evaluated and treated by her primary recently with steroid injections to her back. She did have some relief from the pain. She denies fever vomiting diarrhea. She reports every now and then her back hurts and Ultram helps with the pain. Denies trauma. She also reports she's had some urinary frequency. She denies pain with void. Patient reports this is typical for her chronic back pain. Pt reports her is waiting in the waiting room to drive her home. Associated Symptoms: None Exacerbated by: Denies Relieved by: Denies Similar symptoms previously: Yes Recently seen / treated by doctor: Yes - REPRODUCTIVE Reproductive: DENIES: : - DERM Skin Color: Normal Past Medical History - General Information source: Patient - Social History Smoking Status: Unknown if Ever Smoked Cigarette use (# per day): No Frequency of alcohol use: None Drug Abuse: None Lives with: Family Family History: Arthritis, CVA, Hyperlipidemia, Hypertension, Malignancy, Thyroid Disfunction Patient has suicidal ideation: No Patient has homicidal ideation: No - Past Medical History Cardiac Medical History: Reports: Hx Hypercholesterolemia, Hx Hypertension Pulmonary Medical History: Reports: Hx Asthma Denies: Hx Tuberculosis Neurological Medical History: Reports: Hx Cerebrovascular Accident, Hx Migraine Endocrine Medical History: Reports: Hx HypothyroidismComment Only: Hx Diabetes Mellitus Type 2 - borderline Renal/ Medical History: Denies: Hx Peritoneal Dialysis GI Medical History: Reports: Hx Gastroesophageal Reflux Disease Musculoskeltal Medical History: Reports Hx Arthritis, Reports Hx Musculoskeletal Deformity, Reports Hx Musculoskeletal Trauma Psychiatric Medical History: Reports: Hx Bipolar Disorder, Hx Depression, Hx Schizophrenia Past Surgical History: Reports: Hx Appendectomy - Ex Lap, Hx Section, Hx Gynecologic Surgery - hyst, Hx Hysterectomy, Hx Thyroid Surgery, Hx Tonsillectomy - Immunizations Immunizations up to date: Yes Hx Diphtheria, Pertussis, Tetanus Vaccination: Yes Hx Pneumococcal Vaccination: 12/15/15 Vertical Provider Document - CONSTITUTIONAL Agree With Documented VS: Yes Exam Limitations: No Limitations General Appearance: WD/WN, No Apparent Distress - INFECTION CONTROL TRAVEL OUTSIDE OF THE [place] IN LAST 30 DAYS: No - HEENT HEENT: Atraumatic, Normocephalic - NECK Neck: Normal Inspection, Supple. negative: Lymphadenopathy-Left, Lymphadenopathy-Right - RESPIRATORY Respiratory: Breath Sounds Normal, No Respiratory Distress O2 Sat by Pulse Oximetry: 96 - CARDIOVASCULAR Cardiovascular: Regular Rate, Regular Rhythm - GI/ABDOMEN Gastrointestinal: Abdomen Soft, Abdomen Non-Tender - BACK Back: Normal Inspection - No obvious deformity no erythema no swelling warmth good distal movement and sensation - NEURO Level of Consciousness: Awake, Alert, Appropriate Motor/Sensory: No Motor Deficit - DERM Integumentary: Warm, Dry Course - Re-evaluation Re-evalutation: 07/21/16 23:02 Analysis unremarkable. Patient was instructed on the importance of follow-up with the neurosurgeon next week as scheduled. - Vital Signs Vital signs: Temp Pulse Resp BP Pulse Ox 98.4 F 112 H 22 H 146/88 H 96 07/21/16 20:57 07/21/16 20:57 07/21/16 20:57 07/21/16 20:57 07/21/16 20:57 Discharge - Discharge Clinical Impression: Chronic low back pain Qualifiers: Back pain laterality: unspecified Sciatica presence: without sciatica Qualified Code(s): M54.5 - Low back pain Condition: Stable Disposition: HOME, SELF-CARE Instructions: Warm Packs ([facility]), Ice Packs ([facility]), Low Back Pain ([facility]), Ultram ( [facility]) Additional Instructions: *You have been evaluated for chronic low back pain *Take medication as prescribed *Rest/Ice- heat as indicated *Follow up with your provider as scheduled next week in [place] *Return to ED for worsening condition, changes, needs Monitor your blood pressure. Your blood pressure was elevated today. This may be because you were anxious, in pain or because you need medication. It is important to follow up with your primary care provider for full evaluation. Prescriptions: Tramadol HCl [Ultram 50 mg Tablet] 50 mg PO ASDIR PRN #20 tablet PRN Reason: Forms: Elevated Blood Pressure Referrals: YEE LEONARD PA-C [Primary Care Provider] - Follow up in 1 week
[2016-07-21 23:15] VITALS: BP 129/92
== END 2016-07-21 23:14 | disposition home or self-care (01) ==
LOC: ER 20:32
DX: M54.5 Low back pain (principal); M54.9 Dorsalgia, unspecified; G89.29 Other chronic pain; R35.0 Frequency of micturition; Z79.899 Other long term (current) drug therapy
CPT/HCPCS: 99283; 87086; 81001; A9270

== ENCOUNTER 2016-07-26 11:50 | Emergency (ER) | payer MEDICARE ==
--- NOTE | 2016-07-26 13:02 | ER Document Report ---
ED GI/ - General Chief Complaint: Abdominal Pain Stated Complaint: LEFT SIDE PAIN, BACK PAIN Time seen by provider: 12:30 Mode of Arrival: Ambulatory Information source: Patient Notes: 60-year-old female presents to ED for nausea vomiting and abdominal pain since 6 AM this morning when he woke her up. She denies any urinary symptoms. She does have nausea but no vomiting. She does has a history of IBS. TRAVEL OUTSIDE OF THE [place] IN LAST 30 DAYS: No - HPI Patient complains to provider of: Abdominal pain - Left lower quadrant Onset: This morning - 08-12 Timing/Duration: Sudden - Woke him up Quality of pain: Sharp Severity at maximum: Severe Severity in ED: Almost gone Pain Level: 2 Location: LLQ Vaginal bleeding (Compared to normal period): None Associated symptoms: denies: Radiates to back, Radiates to chest, Urinary hesitancy, Urinary frequency, Urinary retention, Urinary urgency, Vaginal discharge Exacerbated by: Movement Relieved by: Denies Similar symptoms previously: Yes Recently seen / treated by doctor: No - Related Data Allergies/Adverse Reactions: hydrocodone [Hydrocodone] Allergy (Severe, Verified 07/01/16 12:47) sertraline HCl [From Zoloft] Allergy (Severe, Verified 07/01/16 12:47) hives, resp arrest propranolol HCl [From Inderal] Allergy (Intermediate, Verified 07/01/16 12:47) Hives lamotrigine [From Lamictal] Allergy (Verified 07/01/16 12:47) propranolol Allergy (Verified 07/01/16 12:47) Past Medical History - General Information source: Patient - Social History Smoking Status: Former Smoker Chew tobacco use (# tins/day): No Frequency of alcohol use: Occasional Drug Abuse: None Lives with: Family Family History: Arthritis, CVA, Hyperlipidemia, Hypertension, Malignancy, Thyroid Disfunction - Past Medical History Cardiac Medical History: Reports: Hx Hypercholesterolemia, Hx Hypertension Pulmonary Medical History: Reports: Hx Asthma Denies: Hx Tuberculosis Neurological Medical History: Reports: Hx Cerebrovascular Accident, Hx Migraine Endocrine Medical History: Reports: Hx Hypothyroidism, Other - Laboratory cancer and thyroid removedComment Only: Hx Diabetes Mellitus Type 2 - borderline Renal/ Medical History: Reports: Hx Kidney Stones, Hx Ovarian Cysts, Other - Nephritis as a child none since childhood Malignancy Medical History: Reports: Other - Thyroid cancer GI Medical History: Reports: Hx Gastroesophageal Reflux Disease, Hx Irritable Bowel Musculoskeltal Medical History: Reports Hx Arthritis, Reports Hx Musculoskeletal Deformity, Reports Hx Musculoskeletal Trauma Skin Medical History: Reports None Psychiatric Medical History: Reports: Hx Bipolar Disorder, Hx Depression, Hx Schizophrenia Traumatic Medical History: Reports: None Infectious Medical History: Reports: None Past Surgical History: Reports: Hx Appendectomy - Ex Lap, Hx Section, Hx Hysterectomy, Hx Thyroid Surgery, Hx Tonsillectomy - Immunizations Immunizations up to date: Yes Hx Diphtheria, Pertussis, Tetanus Vaccination: Yes Hx Pneumococcal Vaccination: 12/15/15 Review of Systems - Review of Systems Constitutional: No symptoms reported EENT: No symptoms reported Cardiovascular: No symptoms reported Respiratory: No symptoms reported Gastrointestinal: Abdominal pain Genitourinary: No symptoms reported Female Genitourinary: No symptoms reported Musculoskeletal: No symptoms reported Skin: No symptoms reported Hematologic/Lymphatic: No symptoms reported Neurological/Psychological: No symptoms reported -: Yes All other systems reviewed and negative Physical Exam - Vital signs Vitals: Temp Pulse Resp BP Pulse Ox 98.3 F 104 H 12 142/90 H 100 07/26/16 11:51 07/26/16 11:51 07/26/16 11:51 07/26/16 11:51 07/26/16 11:51 Interpretation: Normal - General General appearance: Appears well, Alert - HEENT Head: Normocephalic, Atraumatic Eyes: Normal Pupils: PERRL - Respiratory Respiratory status: No respiratory distress Chest status: Nontender Breath sounds: Normal Chest palpation: Normal - Cardiovascular Rhythm: Regular Heart sounds: Normal auscultation Murmur: No - Abdominal Inspection: Normal Distension: No distension Bowel sounds: Normal Tenderness: Tender - Left lower quadrant Organomegaly: No organomegaly - Back Back: Normal, Nontender - Extremities General upper extremity: Normal inspection, Nontender, Normal color, Normal ROM , Normal temperature General lower extremity: Normal inspection, Nontender, Normal color, Normal ROM , Normal temperature, Normal weight bearing. No: Juliana's sign - Neurological Neuro grossly intact: Yes Cognition: Normal Orientation: AAOx4 [place] Coma Scale Eye Opening: Spontaneous [place] Coma Scale Verbal: Oriented [place] Coma Scale Motor: Obeys Commands Vicky Coma Scale Total: 15 Speech: Normal Motor strength normal: LUE, RUE, LLE, RLE Sensory: Normal - Psychological Associated symptoms: Normal affect, Normal mood - Skin Skin Temperature: Warm Skin Moisture: Dry Skin Color: Normal Course - Vital Signs Vital signs: Temp Pulse Resp BP Pulse Ox 97.5 F 98 20 148/86 H 97 07/26/16 15:21 07/26/16 15:21 07/26/16 15:21 07/26/16 15:21 07/26/16 15:21 - Laboratory Result Diagrams: 07/26/16 14:00 07/26/16 14:00 Laboratory results interpreted by me: 07/26/16 14:00 Chloride 95 L Calcium 10.5 H Direct Bilirubin 0.5 H AST 43 H Discharge - Discharge Clinical Impression: Chronic low back pain Qualifiers: Back pain laterality: unspecified Sciatica presence: without sciatica Qualified Code(s): M54.5 - Low back pain Abdominal pain Qualifiers: Abdominal location: left lower quadrant Qualified Code(s): R10.32 - Left lower quadrant pain Condition: Stable Disposition: HOME, SELF-CARE Additional Instructions: ABDOMINAL PAIN: There are many causes of abdominal pain. Pain can mean a serious problem requiring surgery (such as appendicitis). It can also be an innocent problem that goes away on its own (such as a viral infection). Often, time must pass to determine the cause of pain. The physician does not feel that hospitalization is necessary, at present. Things may change within the next 24 hours. Call the doctor or come back for re- examination if any problems occur, such as: (1) Pain that becomes more severe, steady, or becomes concentrated in one specific area. Also, pain that is more severe with movement or coughing. (2) Vomiting that persists or becomes more frequent. (3) Blood in the vomitus, urine, or bowel movements. Blood in the stool may have a tarry or black appearance. (4) Shaking chills or fever greater than 100 degrees F. (5) The abdomen becomes more distended or swollen. (6) Bowel movements cease. (7) Failure to improve as expected. NORMAL EXAM AND WORKUP: At this time, your examination and workup show no significant abnormality. No significant abnormal physical findings are noted. All laboratory, EKG, and imaging (x-ray, CT scans, ultrasound) studies that were ordered show no significant abnormality. Although your examination and all studies that were ordered showed no significant abnormal finding, there are no examinations and no studies that are 100% accurate. There is always the possibility that some abnormality could exist and not be detected with physical examination or within the limits and capabilities of laboratory and other studies. You should return or follow up as you were instructed on your visit today for further evaluation if your symptoms do not resolve. Chronic Back Pain Chronic back pain (pain persisting longer than three months) is a common problem. A medical evaluation can look for herniated disc, arthritis, osteoporosis, tumors, and infections. But at least half the time, there's no obvious treatable cause. Anxiety and depression tend to worsen back pain. Ibuprofen or other anti-inflammatory medicine can help. A heating pad, used for 15-20 minutes at a time, can ease pain. For this type of back pain, narcotic medicines should be avoided. Muscle relaxers are rarely helpful unless you're having spasms. Activity is important. Find an aerobic exercise program that your back can tolerate. Too much rest makes back pain worse. Specific back exercises are usually prescribed to strengthen the back and abdominal muscles. Often, a physical therapist can help. Avoid heavy lifting, working while bent over, or standing with both knees straight. Most back pain patients do better with a firm mattress. If new symptoms of a "herniated disc" (radiation of pain, numbness, or tingling down the back of the leg or weakness in the leg) occur, you should be re-examined. Ibuprofen Ibuprofen is an excellent, safe drug for pain control. In addition, it has potent antiinflammatory effects which are beneficial, especially in the treatment of injuries, arthritis, or tendonitis. It's best to take ibuprofen with food. Persons with ulcer disease or allergy to aspirin should notify their physician of this before taking ibuprofen. Take the medication exactly as prescribed. Don't take additional doses unless instructed to do so by your doctor. If you develop wheezing, shortness of breath, hives, faintness, stomach pain, vomiting, or dark black stools, return for re-evaluation at once. Chronic Pain Control Stress, inactivity, and depression make pain more severe regardless of the cause of the pain. Stress and poor physical condition can cause pain such as headaches and backache. Relaxation: Rest in a quiet place with your eyes closed for 20 minutes twice daily. Concentrate on a pleasant image, or simply "feel" your breathing. Clear your mind. Stress management: Deal with your "stressors." Either take action, or eliminate the stressor from your life. Don't let things hang over you. Accept those things you can't change. Nutrition: Eat small, balanced meals -- don't skip, don't overeat. Meals should be high-carbohydrate, low-sugar, low-fat. Exercise: Exercise helps painful conditions and eases stress. Get 30 minutes of moderate exercise, five days a week. Do an activity that does not flare your pain. Precautions: Pain which continues to disrupt daily activities, or which changes in nature, requires a medical evaluation. Pain Clinic referral is available. We do not manage chronic pain in the Emergency Department. We will try to appropriately help you through an acute flare of your chronic painful condition , but for on-going chronic pain that does not improve, you will need to see your private doctor or painter interior finish. We do not provide repeated medication management of chronic painful conditions. If you wish, we can provide the name of local pain management physicians. FOLLOW-UP CARE: If you have been referred to a physician for follow-up care, call the physician s office for an appointment as you were instructed or within the next two days. If you experience worsening or a significant change in your symptoms, notify the physician immediately or return to the Emergency Department at any time for re-evaluation. Forms: Elevated Blood Pressure Referrals: YEE LEONARD PA-C [Primary Care Provider] - Follow up as needed
[2016-07-26 13:11] LABS: APPEARANCE,URINE CLEAR; BILIRUBIN,URINE NEGATIVE (NEGATIVE); GLUCOSE, URINE NEGATIVE (NEGATIVE); KETONES,URINE NEGATIVE (NEGATIVE); LEUKOCYTE ESTERASE,URINE NEGATIVE (NEGATIVE); NITRITE,URINE NEGATIVE (NEGATIVE); PROTEIN,URINE NEGATIVE (NEGATIVE); URINE SPECIFIC GRAVITY 1.003; UROBILINOGEN,URINE NEGATIVE mg/dL (<2.0)
[2016-07-26 14:14] LABS: ABSOLUTE BASOPHILS # (AUTO) 0.1 10^3/uL (0.0-0.2); ABSOLUTE EOSINOPHILS # (AUTO) 0.3 10^3/uL (0.0-0.6); ABSOLUTE LYMPHOCYTES (AUTO) 1.7 10^3/uL (0.5-4.7); ABSOLUTE MONOCYTES (AUTO) 0.7 10^3/uL (0.1-1.4); ABSOLUTE NEUT (AUTO) 6.3 10^3/uL (1.7-8.2); BASOPHILS % (AUTO) 0.6 % (0-2); HEMATOCRIT 39.5 % (36.0-47.0); HEMOGLOBIN 13.8 g/dL (12.0-15.5); HGB HCT DIFFERENCE 1.9; LYMPHOCYTES % (AUTO) 18.7 % (13-45); MEAN CORPUSCULAR HEMOGLOBIN 31.3 pg (27.0-33.4); MEAN CORPUSCULAR HGB CONC 34.9 g/dL (32.0-36.0); MEAN CORPUSCULAR VOLUME 90 fl (80-97); MONOCYTES % (AUTO) 7.3 % (3-13); RED CELL DISTRIBUTION WIDTH 13.2 % (11.5-14.0); SEGMENTED NEUTROPHILS % (AUTO) 70.4 % (42-78); WHITE BLOOD COUNT 8.9 10^3/uL (4.0-10.5)
[2016-07-26] MEDS ORDERED: IBUPROFEN 600 MG TABLET PO ONE (14:24)
[2016-07-26 14:44] LABS: ALANINE AMINOTRANSFERASE 50 U/L (9-52); ALBUMIN 4.9 g/dL (3.5-5.0); ALKALINE PHOSPHATASE 108 U/L (38-126); ANION GAP 15 (5-19); ASPARTATE AMINO TRANSFERASE 43 U/L (14-36); BILIRUBIN,DIRECT 0.5 mg/dL (0.0-0.4); BILIRUBIN,TOTAL 0.9 mg/dL (0.2-1.3); BLOOD UREA NITROGEN 12 mg/dL (7-20); CALCIUM 10.5 mg/dL (8.4-10.2); CARBON DIOXIDE 28 mmol/L (22-30); CHLORIDE 95 mmol/L (98-107); CREATININE RESULT 0.52 mg/dL (0.52-1.25); GLUCOSE 110 mg/dL (75-110); POTASSIUM 3.9 mmol/L (3.6-5.0); SODIUM 137.9 mmol/L (137-145); TOTAL PROTEIN 7.9 g/dL (6.3-8.2)
[2016-07-26 15:21] VITALS: BP 148/86
--- NOTE | 2016-07-26 15:23 | ER Document Report ---
Doctor's Note Notes: 07/26/16 15:20 Patient's is evidently well known to this emergency department for her history of chronic back pain and multiple presentations for same. The patient reportedly came to emergency department complaining of abdominal pain in association with her chronic low back pain. I was asked to evaluate the patient by the nurse practitioner and on my evaluation the patient only discusses her issues with her back pain. She says that she went to the pain management clinic this morning to try to get in but there are no doctor's there today as they are in [place]. She indicates that she has an appointment with them in 5 days. She is out of the tramadol that they gave her at the last appointment because they expected that her epidural injection would help with her symptoms. The patient says she's tried just about everything. She is asking for narcotic prescription until she can be seen by sign painter helper next week. She indicates that previously when she is comfortable emergency department she has received a prescription for a small amount to carry her over. It was explained to her that we could not provide her prescription for controlled substance especially while she is under the care of a sign painter helper. We recommend lidocaine patches which patient says she has some at home that she found in the closet last night. Patient alert and oriented distress. Vital signs stable. Patient is afebrile, not toxic appearing. No focal neurologic deficits. The patient appears comfortable. We plan to discharge patient home without further intervention.
== END 2016-07-26 15:24 | disposition home or self-care (01) ==
LOC: ER 11:50
DX: G89.29 Other chronic pain (principal); M54.5 Low back pain; R10.32 Left lower quadrant pain; R11.2 Nausea with vomiting, unspecified; Z87.891 Personal history of nicotine dependence; E78.00 Pure hypercholesterolemia, unspecified; I10 Essential (primary) hypertension; Z86.73 Personal history of transient ischemic attack (TIA), and cerebral infarction without residual deficits; E03.9 Hypothyroidism, unspecified; Z87.442 Personal history of urinary calculi; Z85.850 Personal history of malignant neoplasm of thyroid; Z90.710 Acquired absence of both cervix and uterus
CPT/HCPCS: 99284; 36415; 85025; 80053; 81001; A9270

== ENCOUNTER 2016-08-21 04:25 | Emergency (ER) | payer MEDICARE ==
[2016-08-21] MEDS ORDERED: DIPHENHYDRAMINE HCL 25 MG CAPSULE PO ONE (05:01)
[2016-08-21] MEDS ORDERED: PROCHLORPERAZINE MALEATE 10 MG TABLET PO ONE (05:01)
[2016-08-21] MEDS ORDERED: ACETAMINOPHEN 325 MG TABLET PO ONE (05:01)
--- NOTE | 2016-08-21 05:07 | ER Document Report ---
ED GI/ - General Chief Complaint: Vomiting Stated Complaint: WEAKNESS,VOMITING Time Seen by Provider: 08/21/16 04:42 Mode of Arrival: Medic Information source: Patient Notes: 60-year-old female presents to ED for vomiting elevated blood pressure and generalized weakness since 2100 yesterday. She states her blood pressures been up and down this week but she has not been taken her blood pressure medicine the way it's ordered and she has an appointment with her primary care doctor today this afternoon. She states she has vomited multiple times this evening which was acidic tasting and burning her throat and has been weak since vomiting. TRAVEL OUTSIDE OF THE [place] IN LAST 30 DAYS: No - HPI Patient complains to provider of: Vomiting, Other - Elevated blood pressure due to not taken her blood pressure as ordered and weakness Onset: Yesterday Timing/Duration: Intermittent Quality of pain: Achy Severity at maximum: Moderate Severity in ED: Moderate Pain Level: 3 Location: Other - Headache Associated symptoms: Nausea, Vomiting, Other - Weakness, Headache, elevated blood pressure Exacerbated by: Movement Relieved by: Denies Similar symptoms previously: Yes Recently seen / treated by doctor: Yes - Related Data Allergies/Adverse Reactions: hydrocodone [Hydrocodone] Allergy (Severe, Verified 07/01/16 12:47) sertraline HCl [From Zoloft] Allergy (Severe, Verified 07/01/16 12:47) hives, resp arrest propranolol HCl [From Inderal] Allergy (Intermediate, Verified 07/01/16 12:47) Hives lamotrigine [From Lamictal] Allergy (Verified 07/01/16 12:47) propranolol Allergy (Verified 07/01/16 12:47) Past Medical History - General Information source: Patient - Social History Smoking Status: Former Smoker Cigarette use (# per day): No Chew tobacco use (# tins/day): No Smoking Education Provided: No Frequency of alcohol use: None Drug Abuse: None Lives with: Family Family History: Arthritis, CVA, Hyperlipidemia, Hypertension, Malignancy, Thyroid Disfunction - Past Medical History Cardiac Medical History: Reports: Hx Hypercholesterolemia, Hx Hypertension Pulmonary Medical History: Reports: Hx Asthma EENT Medical History: Reports: None Neurological Medical History: Reports: Hx Cerebrovascular Accident, Hx Migraine Endocrine Medical History: Reports: Hx Diabetes Mellitus Type 2 - borderline diet controlled, Hx Hypothyroidism Renal/ Medical History: Reports: Hx Kidney Stones, Hx Ovarian Cysts Malignancy Medical History: Reports: Other - Thyroid cancer GI Medical History: Reports: Hx Gastroesophageal Reflux Disease, Hx Irritable Bowel Musculoskeltal Medical History: Reports Hx Arthritis, Reports Hx Musculoskeletal Deformity, Reports Hx Musculoskeletal Trauma Skin Medical History: Reports None Psychiatric Medical History: Reports: Hx Bipolar Disorder, Hx Depression, Hx Schizophrenia Traumatic Medical History: Reports: None Infectious Medical History: Reports: None Past Surgical History: Reports: Hx Appendectomy - Ex Lap, Hx Section, Hx Gynecologic Surgery - hyst, Hx Hysterectomy, Hx Thyroid Surgery, Hx Tonsillectomy - Immunizations Immunizations up to date: Yes Hx Diphtheria, Pertussis, Tetanus Vaccination: Yes Hx Pneumococcal Vaccination: 12/15/15 Review of Systems - Review of Systems Constitutional: No symptoms reported EENT: No symptoms reported Cardiovascular: No symptoms reported Respiratory: No symptoms reported Gastrointestinal: Nausea, Vomiting Genitourinary: No symptoms reported Female Genitourinary: No symptoms reported Musculoskeletal: No symptoms reported Skin: No symptoms reported Hematologic/Lymphatic: No symptoms reported Neurological/Psychological: Weakness, Headaches -: Yes All other systems reviewed and negative Physical Exam - Vital signs Vitals: Resp Pulse Ox 18 98 08/21/16 04:43 08/21/16 04:43 Interpretation: Hypertensive - General General appearance: Appears well, Alert - HEENT Head: Normocephalic, Atraumatic Eyes: Normal Pupils: PERRL - Respiratory Respiratory status: No respiratory distress Chest status: Nontender Breath sounds: Normal Chest palpation: Normal - Cardiovascular Rhythm: Regular Heart sounds: Normal auscultation Murmur: No - Abdominal Inspection: Normal Distension: No distension Bowel sounds: Normal Tenderness: Nontender Organomegaly: No organomegaly - Back Back: Normal, Nontender - Extremities General upper extremity: Normal inspection, Nontender, Normal color, Normal ROM , Normal temperature General lower extremity: Normal inspection, Nontender, Normal color, Normal ROM , Normal temperature, Normal weight bearing. No: Juliana's sign - Neurological Neuro grossly intact: Yes Cognition: Normal Orientation: AAOx4 Victoria Coma Scale Eye Opening: Spontaneous Victoria Coma Scale Verbal: Oriented Vicky Coma Scale Motor: Obeys Commands Victoria Coma Scale Total: 15 Speech: Normal Motor strength normal: LUE, RUE, LLE, RLE Sensory: Normal - Psychological Associated symptoms: Normal affect, Normal mood - Skin Skin Temperature: Warm Skin Moisture: Dry Skin Color: Normal Course - Re-evaluation Re-evalutation: 08/21/16 07:07 Patient states she is feeling much better after the Compazine Tylenol and Zofran. She was up to the bathroom and ambulated well. Patient states she is now ready to go home and she will follow-up with her primary doctor and take her blood pressure medicine as ordered instead of as she feels like it. - Vital Signs Vital signs: Temp Pulse Resp BP Pulse Ox 97.0 F 106 H 18 151/108 H 98 08/21/16 05:48 08/21/16 05:48 08/21/16 06:36 08/21/16 06:02 08/21/16 06:25 - Laboratory Result Diagrams: 08/21/16 04:45 08/21/16 04:45 Laboratory results interpreted by me: 08/21/16 04:45 Calcium 11.1 H Discharge - Discharge Clinical Impression: Hypertension Qualifiers: Hypertension type: essential hypertension Qualified Code(s): I10 - Essential ( primary) hypertension Nausea & vomiting Qualifiers: Vomiting type: unspecified Vomiting Intractability: non-intractable Qualified Code(s): R11.2 - Nausea with vomiting, unspecified Condition: Stable Disposition: HOME, SELF-CARE Additional Instructions: HIGH BLOOD PRESSURE, NOT TREAT: When your blood pressure was taken today it was elevated. Today's reading was . We do not think you need to have your blood pressure treated today. Sometimes, stress or illness causes a temporary elevation of your blood pressure. We suggest that you get your blood pressure measured again during the next few days to see if this elevated blood pressure is more than a temporary abnormality. If your blood pressure is greater than 150/90 on each occasion, you must have treatment. Some simple things you can do to help are: If you have blood pressure medicine but aren't using it regularly, start taking it again. Get some aerobic exercise for at least 20 minutes on a daily basis. (See your doctor before beginning a new exercise program.) Eat a low-fat diet. Lose excess weight. Avoid salty foods and avoid adding salt to any of the foods you eat. Avoid diet pills, decongestants, "energizing" herbs, and other medicines that elevate blood pressure. If left untreated, hypertension greatly enhances your risk for developing heart disease and strokes. Please don't ignore this problem. VOMITING: Vomiting (or nausea without vomiting) can be caused by many other different problems. It can mean that something's wrong with the stomach, such as ulcers or inflammation or the intestinal tract, such as appendicitis. But it can also be a symptom of a problem that has nothing to do with the stomach or intestines. Vomiting is common with severe headaches, earaches, tonsillitis, and kidney infections, etc. We see it with pneumonia or heart attacks. Drugs can cause nausea and vomiting. Many abdominal problems cause vomiting; for example, gallstones, kidney stones, pancreatitis, and intestinal obstruction ( blocked bowels). In most cases, curing the vomiting depends on fixing the problem that caused it. For temporary relief, we may use an anti-nausea medicine. For home use, we can prescribe suppositories, chewable pills, pills that dissolve in the mouth, or liquid anti-nausea drugs. If the vomiting seems to be caused by a problem in the stomach, acid-suppressing drugs may be prescribed as well. It's important to avoid dehydration. Sip small amounts of clear liquids ( soft drinks, tea, broth, etc) . Try to take fluids frequently even if you are vomiting to prevent dehydration. Take increasing amounts of fluid and when liquids are being consumed successfully, advance to small amounts of bland food (toast, soups, mashed potatoes, etc.) until you are able to resume a regular diet. Avoid aspirin, tobacco, and alcohol. If the vomiting worsens, if the problem that's making you vomit worsens, or if there's evidence of bleeding in the stomach (such as black, tarry stool, or bloody or black vomit), you should return immediately. Also, return if abdominal pain worsens or becomes localized to one area or you develop high fever. Call your doctor if you aren't improved in 24 hours. INTRAVENOUS (I V) FLUIDS: As part of your care today, you received intravenous (IV) fluids. IV fluids are administered to patients who are dehydrated or to those who have certain chemical (electrolyte) abnormalities that need correcting. ANTINAUSEA MEDICATION: You have been given a medication to suppress nausea and vomiting. This type of medication can be given as a shot, pill, or suppository. It will usually last for many hours. Pills and shots usually last six to eight hours. For the typical illness, only one or two doses of the medication may be necessary. Mild lightheadedness may occur. This type of medicine can cause drowsiness. Do not drive or operate dangerous machinery while under its influence. Do not mix with alcohol. See your doctor at once if you have muscle spasms or tightness, or uncontrollable motions (particularly of the neck, mouth, or jaw). Persistent vomiting or severe lightheadedness should also be evaluated by the physician. Acetaminophen Acetaminophen may be taken for pain relief or fever control. It's much safer than aspirin, offering a wider range of "safe" dosages. It is safe during . Some brand names are Tylenol, Panadol, Datril, Anacin 3, Tempra, and Liquiprin. Acetaminophen can be repeated every four hours. The following are maximum recommended dosages: WEIGHT Dose Drops Elixir Chewable( 80mg) (LBS.) drprs=droppers tsp=teaspoon 6 40 mg .4 ml (1/2) 6-11 80 mg .8 ml (full) 1/2 tsp 1 tab 12-16 120 mg 1 1/2 drprs 3/4 tsp 1 1/2 tabs 17-23 160 mg 2 drprs 1 tsp 2 tabs 24-30 240 mg 3 drprs 1 1/2 tsp 3 tabs 30-35 320 mg 2 tsp 4 tabs 36-41 360 mg 2 1/4 tsp 4 1 /2 tabs 42-47 400 mg 2 1/2 tsp 5 tabs 48-53 480 mg 3 tsp 6 tabs 54-59 520 mg 3 1/4 tsp 6 1 /2 tabs 60-64 560 mg 3 1/2 tsp 7 tabs 65-70 600 mg 3 3/4 tsp 7 1 /2 tabs 71-76 640 mg 4 tsp 8 tabs 77-82 720 mg 4 1/2 tsp 9 tabs 83-88 800 mg 5 tsp 10 tabs >89 pounds or adults 650 mg to 900 mg Acetaminophen can be repeated every four hours. Maximum daily dose not to exceed 4000 mg. These maximum recommended dosages are slightly higher than the dosages written on the product container, but these dosages are very safe and well below the toxic dosage for acetaminophen. FOLLOW-UP CARE: If you have been referred to a physician for follow-up care, call the physician s office for an appointment as you were instructed or within the next two days. If you experience worsening or a significant change in your symptoms, notify the physician immediately or return to the Emergency Department at any time for re-evaluation. Please follow-up with your primary doctor this week as you have scheduled. Please discussed your blood pressure medicine and take your medicine as your doctor prescribes it. We knew get up in the morning these get up slowly sit on the side of the bed and then start moving. Taking medications as ordered. Forms: Elevated Blood Pressure
[2016-08-21 05:15] LABS: ABSOLUTE BASOPHILS # (AUTO) 0.1 10^3/uL (0.0-0.2); ABSOLUTE EOSINOPHILS # (AUTO) 0.3 10^3/uL (0.0-0.6); ABSOLUTE LYMPHOCYTES (AUTO) 2.7 10^3/uL (0.5-4.7); ABSOLUTE MONOCYTES (AUTO) 0.8 10^3/uL (0.1-1.4); ABSOLUTE NEUT (AUTO) 4.8 10^3/uL (1.7-8.2); BASOPHILS % (AUTO) 0.7 % (0-2); EOSINOPHILS % (AUTO) 3.5 % (0-6); HEMATOCRIT 40.9 % (36.0-47.0); HEMOGLOBIN 13.8 g/dL (12.0-15.5); HGB HCT DIFFERENCE 0.5; LYMPHOCYTES % (AUTO) 30.9 % (13-45); MEAN CORPUSCULAR HEMOGLOBIN 31.2 pg (27.0-33.4); MEAN CORPUSCULAR HGB CONC 33.7 g/dL (32.0-36.0); MEAN CORPUSCULAR VOLUME 93 fl (80-97); MONOCYTES % (AUTO) 8.9 % (3-13); RED BLOOD COUNT 4.41 10^6/uL (3.72-5.28); RED CELL DISTRIBUTION WIDTH 12.7 % (11.5-14.0); WHITE BLOOD COUNT 8.6 10^3/uL (4.0-10.5)
[2016-08-21 05:21] LABS: ALANINE AMINOTRANSFERASE 40 U/L (9-52); ALBUMIN 4.8 g/dL (3.5-5.0); ALKALINE PHOSPHATASE 91 U/L (38-126); ANION GAP 17 (5-19); ASPARTATE AMINO TRANSFERASE 24 U/L (14-36); BILIRUBIN,DIRECT 0.4 mg/dL (0.0-0.4); BILIRUBIN,TOTAL 0.5 mg/dL (0.2-1.3); BLOOD UREA NITROGEN 11 mg/dL (7-20); CALCIUM 11.1 mg/dL (8.4-10.2); CARBON DIOXIDE 28 mmol/L (22-30); CHLORIDE 100 mmol/L (98-107); CREATININE RESULT 0.66 mg/dL (0.52-1.25); GLUCOSE 104 mg/dL (75-110); POTASSIUM 3.9 mmol/L (3.6-5.0); TOTAL PROTEIN 7.9 g/dL (6.3-8.2)
[2016-08-21 05:39] LABS: CREATINE KINASE MB 0.44 ng/mL (<4.55); TROPONIN I 0.016 ng/mL
[2016-08-21] MEDS ORDERED: ONDANSETRON HCL INJ/PF 4 MG/2 ML SDV IV ONE (06:21)
[2016-08-21 06:53] LABS: AMORPHOUS SEDIMENT,URINE TRACE /HPF; APPEARANCE,URINE SLIGHTLY-CLOUDY; BILIRUBIN,URINE NEGATIVE (NEGATIVE); GLUCOSE, URINE NEGATIVE (NEGATIVE); KETONES,URINE NEGATIVE (NEGATIVE); LEUKOCYTE ESTERASE,URINE NEGATIVE (NEGATIVE); NITRITE,URINE NEGATIVE (NEGATIVE); PROTEIN,URINE NEGATIVE (NEGATIVE); URINE SPECIFIC GRAVITY 1.006; UROBILINOGEN,URINE NEGATIVE mg/dL (<2.0)
[2016-08-21 07:10] VITALS: BP 151/108
== END 2016-08-21 07:37 | disposition home or self-care (01) ==
LOC: ER 04:25
DX: I10 Essential (primary) hypertension (principal); R11.2 Nausea with vomiting, unspecified; R53.1 Weakness; E78.00 Pure hypercholesterolemia, unspecified; R73.03 Prediabetes; E03.9 Hypothyroidism, unspecified; K21.9 Gastro-esophageal reflux disease without esophagitis; Z87.442 Personal history of urinary calculi; Z87.891 Personal history of nicotine dependence; Z86.73 Personal history of transient ischemic attack (TIA), and cerebral infarction without residual deficits; Z90.710 Acquired absence of both cervix and uterus; Z85.850 Personal history of malignant neoplasm of thyroid; Z88.6 Allergy status to analgesic agent
CPT/HCPCS: 99285; 96374; 36415; 82553; 82550; 85025; 80053; 81001; 84484; A9270 ×3; J2405; S0183

== ENCOUNTER 2016-08-26 03:20 | Emergency (ER) | payer MEDICARE ==
[2016-08-26 03:31] VITALS: BP 161/109
[2016-08-26] MEDS ORDERED: TRAMADOL HCL 50 MG TABLET PO ONE (04:18)
--- NOTE | 2016-08-26 04:20 | ER Document Report ---
ED General - General Chief Complaint: Leg Pain Stated Complaint: RIGHT LEG PAIN Time Seen by Provider: 08/26/16 04:12 Notes: Patient is 60-year-old female who presents for complaint of pain into right thigh. She's a history of sciatica. She says this feels much like typical sciatica. She went to a new pain doctor did injections on the right hip. She says pain is worsened. She says she has just mild numbness which is not atypical for her going into her right foot. No weakness into her leg. No loss of bowel control. No urinary retention. No fevers. No recent trauma. She said she was on Ultram. Her new doctor switched her off Ultram to a different medication. She says that the new medication is not helping her. TRAVEL OUTSIDE OF THE [place] IN LAST 30 DAYS: No - Related Data Allergies/Adverse Reactions: hydrocodone [Hydrocodone] Allergy (Severe, Verified 07/01/16 12:47) sertraline HCl [From Zoloft] Allergy (Severe, Verified 07/01/16 12:47) hives, resp arrest propranolol HCl [From Inderal] Allergy (Intermediate, Verified 07/01/16 12:47) Hives lamotrigine [From Lamictal] Allergy (Verified 07/01/16 12:47) propranolol Allergy (Verified 07/01/16 12:47) Past Medical History - Social History Smoking Status: Unknown if Ever Smoked Frequency of alcohol use: None Drug Abuse: None Family History: Arthritis, CVA, Hyperlipidemia, Hypertension, Malignancy, Thyroid Disfunction Patient has suicidal ideation: No Patient has homicidal ideation: No - Past Medical History Cardiac Medical History: Reports: Hx Hypercholesterolemia, Hx Hypertension Pulmonary Medical History: Reports: Hx Asthma Neurological Medical History: Reports: Hx Cerebrovascular Accident, Hx Migraine Endocrine Medical History: Reports: Hx Diabetes Mellitus Type 2 - borderline diet controlled, Hx Hypothyroidism Renal/ Medical History: Reports: Hx Kidney Stones, Hx Ovarian Cysts. Denies: Hx Peritoneal Dialysis GI Medical History: Reports: Hx Gastroesophageal Reflux Disease, Hx Irritable Bowel Musculoskeltal Medical History: Reports Hx Arthritis, Reports Hx Musculoskeletal Deformity, Reports Hx Musculoskeletal Trauma Psychiatric Medical History: Reports: Hx Bipolar Disorder, Hx Depression, Hx Schizophrenia Past Surgical History: Reports: Hx Appendectomy - Ex Lap, Hx Section, Hx Gynecologic Surgery - hyst, Hx Hysterectomy, Hx Thyroid Surgery, Hx Tonsillectomy - Immunizations Immunizations up to date: Yes Hx Diphtheria, Pertussis, Tetanus Vaccination: Yes Hx Pneumococcal Vaccination: 12/15/15 Review of Systems - Review of Systems Notes: My Normal Review Basic REVIEW OF SYSTEMS: CONSTITUTIONAL : Denies fever, chills, or sweats. Denies recent illness. GASTROINTESTINAL: Denies abdominal pain. Denies nausea, vomiting, or diarrhea. Denies constipation. Last BM: GENITOURINARY: Denies difficulty urinating, painful urination, burning, frequency, or blood in urine. MUSCULOSKELETAL: Right thigh pain. SKIN: Denies rash or skin lesions. NEUROLOGICAL: Denies sensory or motor loss. ALL OTHER SYSTEMS REVIEWED AND NEGATIVE. Physical Exam - Vital signs Vitals: Temp Pulse Resp BP Pulse Ox 99.1 F 103 H 18 161/109 H 97 08/26/16 03:27 08/26/16 03:27 08/26/16 03:27 08/26/16 03:27 08/26/16 03:27 - Notes Notes: General Appearance: Well nourished, alert, cooperative, no acute distress, moderate obvious discomfort. Vitals: reviewed, See vital signs table. Extremities: Patient has good strength with plantar and dorsiflexion of the right foot against resistance. She does not really have any reproducible pain to palpation of the leg or thigh. She does have some pain to palpation over the right gluteal region. Skin: warm, dry, appropriate color, no rash Neuro: speech clear, oriented x 3, normal affect, responds appropriately to questions. Distal sensation intact. Patellar reflex of the right leg is 2 out of 4. Course - Vital Signs Vital signs: Temp Pulse Resp BP Pulse Ox 99.1 F 103 H 18 161/109 H 97 08/26/16 04:41 08/26/16 04:41 08/26/16 04:41 08/26/16 04:41 08/26/16 04:41 - Transfer of Care Notes: 08/26/16 06:04 Patient has signs and symptoms consistent with her chronic sciatica. I will write her for a short prescription for Ultram to follow up with her doctor tomorrow. She's encouraged return to ER if she has any altered bowel control, urinary retention, weakness or numbness in her leg, or she feels that her symptoms are worsening. Patient agrees with plan and will be discharged home. Dictation of this chart was performed using voice recognition software; therefore, there may be some unintended grammatical errors. Discharge - Discharge Clinical Impression: Thigh pain Qualifiers: Laterality: right Qualified Code(s): M79.651 - Pain in right thigh Condition: Good Disposition: HOME, SELF-CARE Instructions: Oral Narcotic Medication ([facility]) Additional Instructions: Please follow-up with your doctor on Saturday. Please return to ER if you have loss of bowel control, inability to urinate, increasing weakness or numbness into legs, or if you have further concerns. Prescriptions: Tramadol HCl [Ultram 50 mg Tablet] 50 mg PO Q6HP PRN #10 tablet PRN Reason: Referrals: KYLE MILAN MD [Primary Care Provider] - Follow up as needed
== END 2016-08-26 04:43 | disposition home or self-care (01) ==
LOC: ER 03:20
DX: M79.651 Pain in right thigh (principal); R20.0 Anesthesia of skin; M54.30 Sciatica, unspecified side; I10 Essential (primary) hypertension; J45.909 Unspecified asthma, uncomplicated; Z79.899 Other long term (current) drug therapy; Z88.5 Allergy status to narcotic agent; Z88.8 Allergy status to other drugs, medicaments and biological substances
CPT/HCPCS: 99283; A9270

== ENCOUNTER 2016-09-03 03:47 | Emergency (ER) | payer MEDICARE ==
[2016-09-03 03:53] VITALS: BP 174/112
[2016-09-03] MEDS ORDERED: HYDROCODONE/ACETAMINOPHEN 5-325 MG TABLET PO ONE (06:28)
--- NOTE | 2016-09-03 06:31 | ER Document Report ---
ED General - General Chief Complaint: Foot Pain Stated Complaint: FALL/TOE INJURY Time Seen by Provider: 09/03/16 06:11 Mode of Arrival: Ambulatory Information source: Patient Notes: 60 yr old female presents with complaints of right foot first digit pain after a tripping injury. pt denies any other complaints or injuries TRAVEL OUTSIDE OF THE [place] IN LAST 30 DAYS: No - HPI Onset: Yesterday Onset/Duration: Sudden Quality of pain: Achy Severity: Mild Pain Level: 1 Associated symptoms: None Exacerbated by: Movement Relieved by: Denies Similar symptoms previously: No Recently seen / treated by doctor: No - Related Data Allergies/Adverse Reactions: hydrocodone [Hydrocodone] Allergy (Severe, Verified 09/03/16 03:53) sertraline HCl [From Zoloft] Allergy (Severe, Verified 09/03/16 03:53) hives, resp arrest propranolol HCl [From Inderal] Allergy (Intermediate, Verified 09/03/16 03:53) Hives lamotrigine [From Lamictal] Allergy (Verified 09/03/16 03:53) propranolol Allergy (Verified 09/03/16 03:53) Past Medical History - Social History Smoking Status: Never Smoker Cigarette use (# per day): No Chew tobacco use (# tins/day): No Smoking Education Provided: No Family History: Arthritis, CVA, Hyperlipidemia, Hypertension, Malignancy, Thyroid Disfunction Patient has suicidal ideation: No Patient has homicidal ideation: No - Past Medical History Cardiac Medical History: Reports: Hx Hypercholesterolemia, Hx Hypertension Pulmonary Medical History: Reports: Hx Asthma Neurological Medical History: Reports: Hx Cerebrovascular Accident, Hx Migraine Endocrine Medical History: Reports: Hx Diabetes Mellitus Type 2 - borderline diet controlled, Hx Hypothyroidism Renal/ Medical History: Reports: Hx Kidney Stones, Hx Ovarian Cysts. Denies: Hx Peritoneal Dialysis GI Medical History: Reports: Hx Gastroesophageal Reflux Disease, Hx Irritable Bowel Musculoskeltal Medical History: Reports Hx Arthritis, Reports Hx Musculoskeletal Deformity, Reports Hx Musculoskeletal Trauma Psychiatric Medical History: Reports: Hx Bipolar Disorder, Hx Depression, Hx Schizophrenia Past Surgical History: Reports: Hx Appendectomy - Ex Lap, Hx Section, Hx Gynecologic Surgery - hyst, Hx Hysterectomy, Hx Thyroid Surgery, Hx Tonsillectomy - Immunizations Immunizations up to date: Yes Hx Diphtheria, Pertussis, Tetanus Vaccination: Yes Hx Pneumococcal Vaccination: 12/15/15 Review of Systems - Review of Systems Notes: PHYSICAL EXAMINATION: GENERAL: Well-appearing, well-nourished and in no acute distress. HEAD: Atraumatic, normocephalic. EYES: Pupils equal round and reactive to light, extraocular movements intact, conjunctiva are normal. ENT: Nares patent, oropharynx clear without exudates. Moist mucous membranes. NECK: Normal range of motion, supple without lymphadenopathy Musculoskeletal: Normal range of motion, no pitting or edema. No cyanosis. NEUROLOGICAL: Cranial nerves grossly intact. Normal speech, normal gait. Normal sensory, motor exams PSYCH: Normal mood, normal affect. SKIN: echymosis of the first digit of the right foot, tender , full rom, full sensation, warm to touch Physical Exam - Vital signs Vitals: Temp Pulse Resp BP Pulse Ox 97.9 F 93 12 174/112 H 98 09/03/16 03:51 09/03/16 03:51 09/03/16 03:51 09/03/16 03:51 09/03/16 03:51 Course - Re-evaluation Re-evalutation: 09/03/16 06:40 xray was performed and was negative, patient will be given pain control otherwise I believe the pain secondary to the crush injury sensation pulses are normal otherwise After performing a Medical Screening Examination, I estimate there is LOW risk for INTRACRANIAL HEMORRHAGE, UNSTABLE SPINE FRACTURE, CENTRAL CORD SYNDROME, CAUDA EQUINA, THORACIC AORTIC DISSECTION, PNEUMOTHORAX, PERFORATED BOWEL, RUPTURED ABDOMINAL AORTIC ANEURYSM, ACUTE TENDON RUPTURE, COMPARTMENT SYNDROME, or OPEN FRACTURE, thus I consider the discharge disposition reasonable. Also, there is no evidence or peritonitis, sepsis, or toxicity. I have reevaluated this patient multiple times and no significant life threatening changes are noted. The patient and I have discussed the diagnosis and risks, and we agree with discharging home to follow-up with their primary doctor with the understanding that symptoms and presentations can change. We also discussed returning to the Emergency Department immediately if new or worsening symptoms occur. We have discussed the symptoms which are most concerning (e.g., bloody stool, fever, changing or worsening pain, vomiting) that necessitate immediate return. - Vital Signs Vital signs: Temp Pulse Resp BP Pulse Ox 97.9 F 93 12 174/112 H 98 09/03/16 03:51 09/03/16 03:51 09/03/16 03:51 09/03/16 03:51 09/03/16 03:51 - Diagnostic Test Radiology reviewed: Image reviewed, Reports reviewed - no Acute abnormality Discharge - Discharge Clinical Impression: Bruise Crush injury, toe Qualifiers: Encounter type: initial encounter Laterality: right Qualified Code(s): S97.101A - Crushing injury of unspecified right toe(s), initial encounter Condition: Stable Disposition: HOME, SELF-CARE Instructions: Contusion ([facility]) Prescriptions: Hydrocodone/Acetaminophen [[place] 5-325 mg Tablet] 1 tab PO Q6 #10 tablet Referrals: YEE LEONARD PA-C [Primary Care Provider] - Follow up in 3-5 days
== END 2016-09-03 06:47 | disposition home or self-care (01) ==
LOC: ER 03:47
DX: S97.111A Crushing injury of right great toe, initial encounter (principal); S90.111A Contusion of right great toe without damage to nail, initial encounter; W19.XXXA Unspecified fall, initial encounter; I10 Essential (primary) hypertension; J45.909 Unspecified asthma, uncomplicated; Z86.73 Personal history of transient ischemic attack (TIA), and cerebral infarction without residual deficits; Z88.5 Allergy status to narcotic agent; Z88.8 Allergy status to other drugs, medicaments and biological substances
CPT/HCPCS: 99283; 73630; A9270

== ENCOUNTER 2016-09-10 19:05 | Emergency (ER) | payer MEDICARE ==
[2016-09-10 19:16] VITALS: BP 180/112
[2016-09-10] MEDS ORDERED: METHYLPREDNISOLONE ACETATE INJ 40 MG/1 ML ML IM ONE (19:46)
[2016-09-10] MEDS ORDERED: DEXAMETHASONE SOD PHOS INJ 10 MG/1 ML VIAL IM ONE (19:46)
[2016-09-10] MEDS ORDERED: HYDROMORPHONE HCL INJ/PF 2 MG/ML AMPULE IM ONE (19:46)
[2016-09-10] MEDS ORDERED: DIAZEPAM 5 MG TABLET PO ONE (19:47)
--- NOTE | 2016-09-10 19:51 | ER Document Report ---
ED General - General Chief Complaint: Leg Pain Stated Complaint: LEG PAIN Time Seen by Provider: 09/10/16 19:46 Information source: Patient TRAVEL OUTSIDE OF THE [place] IN LAST 30 DAYS: No - HPI Onset: Just prior to arrival Onset/Duration: Sudden Quality of pain: Jacey - 60-year-old female presented to the emergency room today stating that she has sciatica confirmed she has had an MRI she is scheduled for LESI injections next week. Taking Ultram at home which is not holding her pain. Nothing different she did not fall did not smack it did not hurt it. - Related Data Allergies/Adverse Reactions: hydrocodone [Hydrocodone] Allergy (Severe, Verified 09/03/16 03:53) sertraline HCl [From Zoloft] Allergy (Severe, Verified 09/03/16 03:53) hives, resp arrest propranolol HCl [From Inderal] Allergy (Intermediate, Verified 09/03/16 03:53) Hives lamotrigine [From Lamictal] Allergy (Verified 09/03/16 03:53) propranolol Allergy (Verified 09/03/16 03:53) Past Medical History - General Information source: Patient - Social History Smoking Status: Never Smoker Cigarette use (# per day): No Family History: Arthritis, CVA, Hyperlipidemia, Hypertension, Malignancy, Thyroid Disfunction - Past Medical History Cardiac Medical History: Reports: Hx Hypercholesterolemia, Hx Hypertension Pulmonary Medical History: Reports: Hx Asthma Neurological Medical History: Reports: Hx Cerebrovascular Accident, Hx Migraine Endocrine Medical History: Reports: Hx Diabetes Mellitus Type 2 - borderline diet controlled, Hx Hypothyroidism Renal/ Medical History: Reports: Hx Kidney Stones, Hx Ovarian Cysts. Denies: Hx Peritoneal Dialysis GI Medical History: Reports: Hx Gastroesophageal Reflux Disease, Hx Irritable Bowel Musculoskeltal Medical History: Reports Hx Arthritis, Reports Hx Musculoskeletal Deformity, Reports Hx Musculoskeletal Trauma Psychiatric Medical History: Reports: Hx Bipolar Disorder, Hx Depression, Hx Schizophrenia Past Surgical History: Reports: Hx Appendectomy - Ex Lap, Hx Section, Hx Gynecologic Surgery - hyst, Hx Hysterectomy, Hx Thyroid Surgery, Hx Tonsillectomy - Immunizations Immunizations up to date: Yes Hx Diphtheria, Pertussis, Tetanus Vaccination: Yes Hx Pneumococcal Vaccination: 12/15/15 Review of Systems - Review of Systems Constitutional: No symptoms reported EENT: No symptoms reported Cardiovascular: No symptoms reported Respiratory: No symptoms reported Gastrointestinal: No symptoms reported Genitourinary: No symptoms reported Female Genitourinary: No symptoms reported Musculoskeletal: No symptoms reported Skin: No symptoms reported Hematologic/Lymphatic: No symptoms reported Neurological/Psychological: No symptoms reported Physical Exam - Vital signs Vitals: Temp Pulse Resp BP Pulse Ox 99 F 95 20 180/112 H 100 09/10/16 19:13 09/10/16 19:13 09/10/16 19:13 09/10/16 19:13 09/10/16 19:13 Interpretation: Normal - General General appearance: Appears well, Alert - HEENT Head: Normocephalic, Atraumatic Eyes: Normal Pupils: PERRL - Respiratory Respiratory status: No respiratory distress Chest status: Nontender Breath sounds: Normal Chest palpation: Normal - Cardiovascular Rhythm: Regular Heart sounds: Normal auscultation Murmur: No - Abdominal Inspection: Normal Distension: No distension Bowel sounds: Normal Tenderness: Nontender Organomegaly: No organomegaly - Back Back: Normal, Nontender - Extremities General upper extremity: Normal inspection, Nontender, Normal color, Normal ROM , Normal temperature General lower extremity: Normal inspection, Nontender, Normal color, Normal ROM , Normal temperature, Normal weight bearing. No: Juliana's sign - Neurological Neuro grossly intact: Yes Cognition: Normal Orientation: AAOx4 Vicky Coma Scale Eye Opening: Spontaneous Vicky Coma Scale Verbal: Oriented Veteran Coma Scale Motor: Obeys Commands Vicky Coma Scale Total: 15 Speech: Normal Motor strength normal: LUE, RUE, LLE, RLE Sensory: Normal - Psychological Associated symptoms: Normal affect, Normal mood - Skin Skin Temperature: Warm Skin Moisture: Dry Skin Color: Normal Course - Re-evaluation Re-evalutation: 09/10/16 19:48 Patient exhibited no numbness no tingling no loss of bowel or bladder function or saddle anesthesia is ambulatory with a rhythmic and steady gait based on pain to the right sciatic nerve. She has a history of sciatica this is the same pain that she is in just more intense she takes Ultram for control she was advised to refrain from that while taking the medication I am providing her. - Vital Signs Vital signs: Temp Pulse Resp BP Pulse Ox 99 F 95 20 180/112 H 100 09/10/16 19:13 09/10/16 19:13 09/10/16 19:13 09/10/16 19:13 09/10/16 19:13 Discharge - Discharge Clinical Impression: Sciatica Qualifiers: Laterality: right Qualified Code(s): M54.31 - Sciatica, right side Disposition: HOME, SELF-CARE Additional Instructions: Sciatica Your symptoms suggest "sciatica." The pain of sciatica typically radiates down the leg. Numbness in the foot or calf may also occur. Sciatica is caused by irritation of the sciatic nerve or its branches. The irritation can be due to a herniated disk in the spine, swelling and inflammation in the muscles surrounding the sciatic nerve, or direct injury of the nerve itself. Most cases of sciatica will resolve with medical treatment. Bed rest is usually recommended initially. Surgery is only necessary when the condition will not improve with rest and antiinflammatory medication. Muscle relaxers are often given if muscle soreness is present. A CAT scan of the back may be performed if a herniated disk is suspected. Re-examination is necessary if you develop increasing numbness, localized weakness in the foot or ankle, or if the pain does not respond to rest. Follow-up with private doctor in 1 to 2 days for final radiology readings please return to the emergency room for any change worsening condition. Follow up with private M.D. for all other routine health care needs.
== END 2016-09-10 20:18 | disposition home or self-care (01) ==
LOC: ER 19:05
DX: M54.31 Sciatica, right side (principal); M79.606 Pain in leg, unspecified; Z79.899 Other long term (current) drug therapy
CPT/HCPCS: 99283; 96372; A9270; J1020; J1170; J1100

== ENCOUNTER → 2016-10-19 | Outpatient (CLI) | payer MEDICARE ==
--- NOTE | 2016-10-19 16:51 | WOMENS IMAGING REPORT ---
EXAM DESCRIPTION: BILAT SCREENING MAMMO W/CAD COMPLETED DATE/TIME: 10/19/2016 2:33 pm REASON FOR STUDY: Z12.31, ROUTINE SCREENING MAMMO (IMPLANTS) Z12.31 ENCNTR SCREEN MAMMOGRAM FOR MAL IGNANT NEOPLASM OF ANDI COMPARISON: Multiple since 2008 TECHNIQUE: Standard craniocaudal and mediolateral oblique views of each breast recorded using [employer] acquisition. LIMITATIONS: None. FINDINGS: RIGHT BREAST MASSES: No suspicious masses. CALCIFICATIONS: Cluster of calcifications variable in size shape and density, right breast implant di splaced cc and MLO views at the 12 o'clock position. These require further investigation 90 mediola teral view and compression magnification views. ARCHITECTURAL DISTORTION: None. DEVELOPING DENSITY: None. ASYMMETRY: None noted. OTHER: No other significant findings. LEFT BREAST MASSES: Subcentimeter mammographic nodule left breast far inferior on both MLO and MLO implant displa kirstie views. Ultrasound of the lower half left breast recommended for followup. CALCIFICATIONS: No new or suspicious calcifications. ARCHITECTURAL DISTORTION: None. DEVELOPING DENSITY: None. ASYMMETRY: None noted. OTHER: No other significant findings. Read with the assistance of CAD. .[facility] - R2 Cenova Version 1.3 .[facility] - R2 Cenova Version 1.3 .[facility] - R2 Cenova Version 2.4 .[facility] - R2 Cenova Version 2.4 .[facility] - R2 [employer] Version 9.2 IMPRESSION: Cluster of calcifications variable in size shape and density, right breast implant displ aced cc and MLO views at the 12 o'clock position. These require further investigation 90 mediolater al view and compression magnification views Small mammographic nodule left breast inferiorly on implant displaced MLO and left whole breast MLO v iew for which ultrasound is recommended BREAST DENSITY: b. There are scattered areas of fibroglandular density. BIRAD: 0 Incomplete: Needs Additional Imaging Evaluation and/or prior Mammograms for Comparison. RECOMMENDATION: RECOMMENDED FOLLOW-UP: Additional right breast diagnostic mammograms, left breast ul trasound The patient will be contacted for additional imaging. COMMENT: The patient has been notified of the results by letter per MQSA requirements. Additional no tification policies are in place for contacting patient with suspicious or incomplete findings. Quality ID #[id number]: The [employer] recommends an annual screening mammogram for women aged 40 years or over. This facility utilizes a reminder system to ensure that all patients receive reminder letters, and/or direct phone calls for appointments. This includes reminders for routine scr eening mammograms, diagnostic mammograms, or other Breast Imaging Interventions when appropriate. Th is patient will be placed in the appropriate reminder system. The [employer] (ACR) has developed recommendations for screening MRI of the breast s in certain patient populations, to be used in conjunction with mammography. Breast MRI surveillanc e may be appropriate for women with more than 20% lifetime risk of developing breast cancer as deter mined by genetic testing, significant family history of the disease, or history of mantle radiation f or Hodgkins Disease. ACR Practice Guidelines 2008. TECHNICAL DOCUMENTATION: FINDING NUMBER: (1) ASSESSMENT: (1) JOB ID: [id number] [email or web address]- All Rights Reserved
== END ==
LOC: WI 13:55
PROVIDERS: ATTEND Physician Assistant
DX: Z12.31 Encounter for screening mammogram for malignant neoplasm of breast (principal); N63 Unspecified lump in breast
CPT/HCPCS: 77067; G0202

== ENCOUNTER 2016-10-21 18:44 | Emergency (ER) | payer MEDICARE ==
[2016-10-21 18:53] VITALS: BP 131/84
--- NOTE | 2016-10-21 19:24 | ER Document Report ---
ED Neck/Back Problem - General Chief Complaint: Leg Pain Stated Complaint: RIGHT LEG PAIN Time Seen by Provider: 10/21/16 19:09 Notes: Patient is 60-year-old female who presents for complaint of pain in right buttock into right thigh. Pt has history of 2 herniated discs with sciatica. She says this feels much like her typical sciatica. She went to a new pain doctor at [facility], Dr Merlos, who did injections on the right hip 2 weeks ago and changed her pain medication. She says pain has returned. She says she has just mild numbness which is not atypical for her going into her right foot. No weakness into her leg. No bladder or bowel dysfunction. No urinary retention. No fevers. No recent trauma. TRAVEL OUTSIDE OF THE [place] IN LAST 30 DAYS: No - HPI Patient complains to provider of: Pain Onset: Chronic Timing: Constant Quality of pain: Burning Recent injury: No Exacerbated by: Other - changing postions, walking Relieved by: Nothing Similar symptoms previously: Yes - Related Data Allergies/Adverse Reactions: hydrocodone [Hydrocodone] Allergy (Severe, Verified 10/21/16 19:18) sertraline HCl [From Zoloft] Allergy (Severe, Verified 10/21/16 19:18) hives, resp arrest propranolol HCl [From Inderal] Allergy (Intermediate, Verified 10/21/16 19:18) Hives lamotrigine [From Lamictal] Allergy (Verified 10/21/16 19:18) propranolol Allergy (Verified 10/21/16 19:18) Past Medical History - General Information source: Patient - Social History Smoking Status: Never Smoker Frequency of alcohol use: None Drug Abuse: None Lives with: Family Family History: Arthritis, CVA, Hyperlipidemia, Hypertension, Malignancy, Thyroid Disfunction Patient has suicidal ideation: No Patient has homicidal ideation: No - Past Medical History Cardiac Medical History: Reports: Hx Hypercholesterolemia, Hx Hypertension Pulmonary Medical History: Reports: Hx Asthma Neurological Medical History: Reports: Hx Cerebrovascular Accident, Hx Migraine Endocrine Medical History: Reports: Hx Diabetes Mellitus Type 2 - borderline diet controlled, Hx Hypothyroidism Renal/ Medical History: Reports: Hx Kidney Stones, Hx Ovarian Cysts. Denies: Hx Peritoneal Dialysis GI Medical History: Reports: Hx Gastroesophageal Reflux Disease, Hx Irritable Bowel Musculoskeltal Medical History: Reports Hx Arthritis, Reports Hx Musculoskeletal Deformity, Reports Hx Musculoskeletal Trauma Psychiatric Medical History: Reports: Hx Bipolar Disorder, Hx Depression, Hx Schizophrenia Past Surgical History: Reports: Hx Appendectomy - Ex Lap, Hx Section, Hx Gynecologic Surgery - hyst, Hx Hysterectomy, Hx Thyroid Surgery, Hx Tonsillectomy - Immunizations Immunizations up to date: Yes Hx Diphtheria, Pertussis, Tetanus Vaccination: Yes Hx Pneumococcal Vaccination: 12/15/15 Review of Systems - Review of Systems Constitutional: No symptoms reported EENT: No symptoms reported Cardiovascular: No symptoms reported Respiratory: No symptoms reported Gastrointestinal: No symptoms reported Genitourinary: No symptoms reported Female Genitourinary: No symptoms reported Musculoskeletal: Back pain Skin: No symptoms reported Hematologic/Lymphatic: No symptoms reported Neurological/Psychological: No symptoms reported -: Yes All other systems reviewed and negative Physical Exam - Vital signs Vitals: Temp Pulse Resp BP Pulse Ox 98.3 F 96 20 131/84 H 97 10/21/16 18:49 10/21/16 18:49 10/21/16 18:49 10/21/16 18:49 10/21/16 18:49 Interpretation: Normal - General General appearance: Appears well, Alert - HEENT Head: Normocephalic, Atraumatic Eyes: Normal Pupils: PERRL - Respiratory Respiratory status: No respiratory distress Chest status: Nontender Breath sounds: Normal Chest palpation: Normal - Cardiovascular Rhythm: Regular Heart sounds: Normal auscultation Murmur: No - Abdominal Inspection: Normal Distension: No distension Bowel sounds: Normal Tenderness: Nontender Organomegaly: No organomegaly - Back Back: Normal, Tender - right SI tender. neg SLT.. No: Vertebra tenderness - Extremities General upper extremity: Normal inspection, Nontender, Normal color, Normal ROM , Normal temperature General lower extremity: Normal inspection, Nontender, Normal color, Normal ROM , Normal temperature, Normal weight bearing. No: Juliana's sign - Neurological Neuro grossly intact: Yes Cognition: Normal Orientation: AAOx4 [place] Coma Scale Eye Opening: Spontaneous Vicky Coma Scale Verbal: Oriented [place] Coma Scale Motor: Obeys Commands [place] Coma Scale Total: 15 Speech: Normal Motor strength normal: LUE, RUE, LLE, RLE Sensory: Normal - Psychological Associated symptoms: Normal affect, Normal mood - Skin Skin Temperature: Warm Skin Moisture: Dry Skin Color: Normal Course - Re-evaluation Re-evalutation: 10/21/16 19:30 Patient has signs and symptoms consistent with her chronic sciatica. I will write her for a short prescription of pain medication and instruct her to follow up with her pain management doctor tomorrow. She's encouraged return to ER if she has any altered bowel control, urinary retention, weakness or numbness in her leg, or she feels that her symptoms are worsening. Patient agrees with plan and will be discharged home. - Vital Signs Vital signs: Temp Pulse Resp BP Pulse Ox 98.3 F 96 20 131/84 H 97 10/21/16 18:49 10/21/16 18:49 10/21/16 18:49 10/21/16 18:49 10/21/16 18:49 Discharge - Discharge Clinical Impression: Sciatica Qualifiers: Laterality: right Qualified Code(s): M54.31 - Sciatica, right side Condition: Stable Disposition: HOME, SELF-CARE Instructions: Sciatica ([facility]), Oral Narcotic Medication ([facility]) Additional Instructions: Your history and physical exam are consistant with your sciatica I am giving you a short prescription of pain medication. Please follow up with your pain management provider tomorrow for further evaluation and treatment Prescriptions: Oxycodone HCl/Acetaminophen [Percocet 10-325 Mg Tablet] 1 each PO Q4H PRN #15 tablet PRN Reason: Severe Pain
[2016-10-21] MEDS ORDERED: OXYCODONE-ACETAMINOPHEN 5-325 MG TABLET PO ONE (19:41)
[2016-10-21] MEDS ORDERED: OXYCODONE-ACETAMINOPHEN 5-325 MG TABLET ONE (19:46)
== END 2016-10-21 20:07 | disposition home or self-care (01) ==
LOC: ER 18:44
DX: M54.31 Sciatica, right side (principal); G89.29 Other chronic pain; Z79.899 Other long term (current) drug therapy; I10 Essential (primary) hypertension; J45.909 Unspecified asthma, uncomplicated; Z88.5 Allergy status to narcotic agent; Z88.8 Allergy status to other drugs, medicaments and biological substances
CPT/HCPCS: 99283; A9270

== ENCOUNTER 2016-10-28 12:10 | Emergency (ER) | payer MEDICAID, MEDICARE ==
[2016-10-28 12:28] VITALS: BP 153/102
--- NOTE | 2016-10-28 12:57 | ER Document Report ---
ED Neck/Back Problem - General Chief Complaint: Leg Pain Stated Complaint: RIGHT BUTTOCK AND LEG PAIN Time Seen by Provider: 10/28/16 12:44 Notes: Patient is 60-year-old female who presents for complaint of pain in right buttock into right thigh. Pt has history of 2 herniated discs with sciatica. She says this feels much like her typical sciatica. Pt is followed by [facility], Dr Merlos. at her last appointment, she received an injection and changed her pain medication. She says pain has returned. Pt has been seen in ED several times for same. She says she has just mild numbness which is typical for her, going into her right foot. No weakness into her leg. No bladder or bowel dysfunction. No urinary retention. No fevers. No recent trauma. TRAVEL OUTSIDE OF THE [place] IN LAST 30 DAYS: No - HPI Relieved by: Nothing Similar symptoms previously: Yes Recently seen / treated by doctor: Yes - Related Data Allergies/Adverse Reactions: hydrocodone [Hydrocodone] Allergy (Severe, Verified 10/28/16 12:14) sertraline HCl [From Zoloft] Allergy (Severe, Verified 10/28/16 12:14) hives, resp arrest propranolol HCl [From Inderal] Allergy (Intermediate, Verified 10/28/16 12:14) Hives lamotrigine [From Lamictal] Allergy (Verified 10/28/16 12:14) propranolol Allergy (Verified 10/28/16 12:14) Past Medical History - General Information source: Patient - Social History Smoking Status: Never Smoker Chew tobacco use (# tins/day): No Frequency of alcohol use: None Drug Abuse: None Family History: Arthritis, CVA, Hyperlipidemia, Hypertension, Malignancy, Thyroid Disfunction - Past Medical History Cardiac Medical History: Reports: Hx Hypercholesterolemia, Hx Hypertension Pulmonary Medical History: Reports: Hx Asthma Neurological Medical History: Reports: Hx Cerebrovascular Accident, Hx Migraine Endocrine Medical History: Reports: Hx Diabetes Mellitus Type 2 - borderline diet controlled, Hx Hypothyroidism Renal/ Medical History: Reports: Hx Kidney Stones, Hx Ovarian Cysts. Denies: Hx Peritoneal Dialysis GI Medical History: Reports: Hx Gastroesophageal Reflux Disease, Hx Irritable Bowel Musculoskeltal Medical History: Reports Hx Arthritis, Reports Hx Musculoskeletal Deformity, Reports Hx Musculoskeletal Trauma Psychiatric Medical History: Reports: Hx Bipolar Disorder, Hx Depression, Hx Schizophrenia Past Surgical History: Reports: Hx Appendectomy - Ex Lap, Hx Section, Hx Gynecologic Surgery - hyst, Hx Hysterectomy, Hx Thyroid Surgery, Hx Tonsillectomy - Immunizations Immunizations up to date: Yes Hx Diphtheria, Pertussis, Tetanus Vaccination: Yes Hx Pneumococcal Vaccination: 12/15/15 Review of Systems - Review of Systems Constitutional: No symptoms reported EENT: No symptoms reported Cardiovascular: No symptoms reported Respiratory: No symptoms reported Gastrointestinal: No symptoms reported Genitourinary: No symptoms reported Female Genitourinary: No symptoms reported Musculoskeletal: See HPI Skin: No symptoms reported Hematologic/Lymphatic: No symptoms reported Neurological/Psychological: No symptoms reported -: Yes All other systems reviewed and negative Physical Exam - Vital signs Vitals: Temp Pulse Resp BP Pulse Ox 98.3 F 72 20 153/102 H 97 10/28/16 12:16 10/28/16 12:16 10/28/16 12:16 10/28/16 12:16 10/28/16 12:16 Interpretation: Normal - General General appearance: Appears well, Alert - HEENT Head: Normocephalic, Atraumatic Eyes: Normal Pupils: PERRL - Respiratory Respiratory status: No respiratory distress Chest status: Nontender Breath sounds: Normal Chest palpation: Normal - Cardiovascular Rhythm: Regular Heart sounds: Normal auscultation Murmur: No - Abdominal Inspection: Normal Distension: No distension Bowel sounds: Normal Tenderness: Nontender Organomegaly: No organomegaly - Back Back: Tender - Tender - right SI tender. neg SLT. No: Vertebra tenderness - Extremities General upper extremity: Normal inspection, Nontender, Normal color, Normal ROM , Normal temperature General lower extremity: Normal inspection, Nontender, Normal color, Normal ROM , Normal temperature, Normal weight bearing. No: Juliana's sign - Neurological Neuro grossly intact: Yes Cognition: Normal Orientation: AAOx4 [place] Coma Scale Eye Opening: Spontaneous Vicky Coma Scale Verbal: Oriented Vicky Coma Scale Motor: Obeys Commands [place] Coma Scale Total: 15 Speech: Normal Motor strength normal: LUE, RUE, LLE, RLE Sensory: Normal - Psychological Associated symptoms: Normal affect, Normal mood - Skin Skin Temperature: Warm Skin Moisture: Dry Skin Color: Normal Course - Re-evaluation Re-evalutation: 10/28/16 12:58 Patient has signs and symptoms consistent with her chronic sciatica. I will write her for a short prescription of pain medication and instruct her to follow up with her pain management doctor tomorrow. She's encouraged return to ER if she has any altered bowel control, urinary retention, weakness or numbness in her leg, or she feels that her symptoms are worsening. Patient agrees with plan and will be discharged home. - Vital Signs Vital signs: Temp Pulse Resp BP Pulse Ox 98.3 F 72 20 153/102 H 97 10/28/16 12:16 10/28/16 12:16 10/28/16 12:16 10/28/16 12:16 10/28/16 12:16 Discharge - Discharge Clinical Impression: Sciatic leg pain Condition: Stable Disposition: HOME, SELF-CARE Instructions: Sciatica ([facility]), Oral Narcotic Medication ([facility]), Muscle Relaxers ( [facility]) Additional Instructions: take pain medication as prescribed you MUST follow up with your primary care/pain management for further treatment Prescriptions: Oxycodone HCl/Acetaminophen [Percocet 10-325 Mg Tablet] 1 each PO Q4H #15 tablet Forms: Elevated Blood Pressure
[2016-10-28] MEDS ORDERED: OXYCODONE-ACETAMINOPHEN 5-325 MG TABLET PO ONE (13:01)
== END 2016-10-28 13:10 | disposition home or self-care (01) ==
LOC: ER 12:10
DX: M54.30 Sciatica, unspecified side (principal); M79.604 Pain in right leg; M79.1 Myalgia
CPT/HCPCS: 99283; A9270

== ENCOUNTER → 2016-11-20 | Outpatient (CLI) | payer MEDICARE, OTHER ==
--- NOTE | 2016-11-21 08:35 | WOMENS IMAGING REPORT ---
EXAM DESCRIPTION: RIGHT DIAGNOSTIC MAMMO W/CAD; U/S BREAST UNILAT LIMITED COMPLETED DATE/TIME: 11/20/2016 11:43 am; 11/20/2016 2:35 pm REASON FOR STUDY: INCONCLUSIVE; 92.2; BILATERAL BREAST N63 R92.2 INCONCLUSIVE MAMMOGRAM COMPARISON: Multiple since 2008 TECHNIQUE: Cone compression craniocaudal and mediolateral oblique images of the right breast recorde d with digital acquisition. Right breast 90 mediolateral view was also obtained. Bilateral breast ultrasound was also performed. LIMITATIONS: None. FINDINGS: BREAST: Right breast diagnostic mammograms MASSES/CALCIFICATIONS: At the right breast 12 o'clock position, a mammographic nodule with calcificat ions is present, about 7 to 8 mm in diameter. This has calcifications which have increased compared to priors. At ultrasound, a small 7 mm well-circumscribed mammographic nodule with calcifications is identified in this location. ARCHITECTURAL DISTORTION: None. DEVELOPING DENSITY: None. ASYMMETRY: None noted. OTHER: Right breast implant present Read with the assistance of CAD. .[facility] - R2 Cenova Version 1.3 .[facility] - R2 Cenova Version 1.3 .[facility] - R2 Cenova Version 2.4 .[facility] - R2 Cenova Version 2.4 .[facility] - R2 P[employer] Security Consultant Version 9.2 Right breast ultrasound: Ultrasound of the right breast demonstrates a 7 to 8 mm well-circumscribed hypoechoic mammographic no dule with some internal calcifications. No clear acoustic through transmission. This is indetermina te, ultrasound-guided core biopsy of this small nodule with post biopsy clip placement and follow-up two-view mammogram is recommended. Left breast ultrasound: In the medial left breast on left CC view 10/19/2016, a mammographic nodule is present. Medial left br east at the 7 to 8 o'clock position ultrasound demonstrates a well-circumscribed hypoechoic nodule wi th partial border loss and limited acoustic through transmission measuring about 12 x 8 mm in size. No internal color flow. This may represent a focus of fat necrosis or a complex cyst. Malignancy co uld not entirely be excluded. Ultrasound-guided core biopsy/cyst aspiration with clip placement and post biopsy mammograms of this lesion is recommended. IMPRESSION: Bilateral breast findings for which ultrasound-guided core biopsy, post biopsy clip plac ement and follow-up two-view mammogram is recommended. BREAST DENSITY: b. There are scattered areas of fibroglandular density. BIRAD: 4 Suspicious. Biopsy should be considered. RECOMMENDATION: RECOMMENDED FOLLOW UP: Bilateral breast ultrasound guided core biopsy, post biopsy c lip placement, with follow-up two-view mammograms SPECIFIC INTERVENTION/IMAGING/CONSULTATION RECOMMENDED:As above COMMUNICATION:These results were discussed with the patient, she is amenable to the procedures. This report was also called to Hilton Galan PA-C, 1145 hours, 11/20/2016 COMMENT: The patient has been notified of the results by letter per SA requirements. Additional no tification policies are in place for contacting patient with suspicious or incomplete findings. Quality ID #[id number]: The [employer] recommends an annual screening mammogram for women aged 40 years or over. This facility utilizes a reminder system to ensure that all patients receive reminder letters, and/or direct phone calls for appointments. This includes reminders for routine scr eening mammograms, diagnostic mammograms, or other Breast Imaging Interventions when appropriate. Th is patient will be placed in the appropriate reminder system. The [employer] (ACR) has developed recommendations for screening MRI of the breast s in certain patient populations, to be used in conjunction with mammography. Breast MRI surveillanc e may be appropriate for women with more than 20% lifetime risk of developing breast cancer as deter mined by genetic testing, significant family history of the disease, or history of mantle radiation f or Hodgkins Disease. ACR Practice Guidelines 2008. TECHNICAL DOCUMENTATION: FINDING NUMBER: (1) ASSESSMENT: (1) JOB ID: [id number] [employer]- All Rights Reserved
--- NOTE | 2016-11-21 08:35 | WOMENS IMAGING REPORT ---
EXAM DESCRIPTION: RIGHT DIAGNOSTIC MAMMO W/CAD; U/S BREAST UNILAT LIMITED COMPLETED DATE/TIME: 11/20/2016 11:43 am; 11/20/2016 2:35 pm REASON FOR STUDY: INCONCLUSIVE; 92.2; BILATERAL BREAST N63 R92.2 INCONCLUSIVE MAMMOGRAM COMPARISON: Multiple since 2008 TECHNIQUE: Cone compression craniocaudal and mediolateral oblique images of the right breast recorde d with digital acquisition. Right breast 90 mediolateral view was also obtained. Bilateral breast ultrasound was also performed. LIMITATIONS: None. FINDINGS: BREAST: Right breast diagnostic mammograms MASSES/CALCIFICATIONS: At the right breast 12 o'clock position, a mammographic nodule with calcificat ions is present, about 7 to 8 mm in diameter. This has calcifications which have increased compared to priors. At ultrasound, a small 7 mm well-circumscribed mammographic nodule with calcifications is identified in this location. ARCHITECTURAL DISTORTION: None. DEVELOPING DENSITY: None. ASYMMETRY: None noted. OTHER: Right breast implant present Read with the assistance of CAD. .[facility] - R2 Cenova Version 1.3 .[facility] - R2 Cenova Version 1.3 .[facility] - R2 Cenova Version 2.4 .[facility] [place] Cenova Version 2.4 .[facility] - R2 Yarn Washer Version 9.2 Right breast ultrasound: Ultrasound of the right breast demonstrates a 7 to 8 mm well-circumscribed hypoechoic mammographic no dule with some internal calcifications. No clear acoustic through transmission. This is indetermina te, ultrasound-guided core biopsy of this small nodule with post biopsy clip placement and follow-up two-view mammogram is recommended. Left breast ultrasound: In the medial left breast on left CC view 10/19/2016, a mammographic nodule is present. Medial left br east at the 7 to 8 o'clock position ultrasound demonstrates a well-circumscribed hypoechoic nodule wi th partial border loss and limited acoustic through transmission measuring about 12 x 8 mm in size. No internal color flow. This may represent a focus of fat necrosis or a complex cyst. Malignancy co uld not entirely be excluded. Ultrasound-guided core biopsy/cyst aspiration with clip placement and post biopsy mammograms of this lesion is recommended. IMPRESSION: Bilateral breast findings for which ultrasound-guided core biopsy, post biopsy clip plac ement and follow-up two-view mammogram is recommended. BREAST DENSITY: b. There are scattered areas of fibroglandular density. BIRAD: 4 Suspicious. Biopsy should be considered. RECOMMENDATION: RECOMMENDED FOLLOW UP: Bilateral breast ultrasound guided core biopsy, post biopsy c lip placement, with follow-up two-view mammograms SPECIFIC INTERVENTION/IMAGING/CONSULTATION RECOMMENDED:As above COMMUNICATION:These results were discussed with the patient, she is amenable to the procedures. This report was also called to Hilton Galan PA-C, 1145 hours, 11/20/2016 COMMENT: The patient has been notified of the results by letter per SA requirements. Additional no tification policies are in place for contacting patient with suspicious or incomplete findings. Quality ID #[id number]: The [employer] recommends an annual screening mammogram for women aged 40 years or over. This facility utilizes a reminder system to ensure that all patients receive reminder letters, and/or direct phone calls for appointments. This includes reminders for routine scr eening mammograms, diagnostic mammograms, or other Breast Imaging Interventions when appropriate. Th is patient will be placed in the appropriate reminder system. The [employer] (ACR) has developed recommendations for screening MRI of the breast s in certain patient populations, to be used in conjunction with mammography. Breast MRI surveillanc e may be appropriate for women with more than 20% lifetime risk of developing breast cancer as deter mined by genetic testing, significant family history of the disease, or history of mantle radiation f or Hodgkins Disease. ACR Practice Guidelines 2008. TECHNICAL DOCUMENTATION: FINDING NUMBER: (1) ASSESSMENT: (1) JOB ID: [id number] [employer]- All Rights Reserved
--- NOTE | 2016-11-21 08:35 | WOMENS IMAGING REPORT ---
EXAM DESCRIPTION: RIGHT DIAGNOSTIC MAMMO W/CAD; U/S BREAST UNILAT LIMITED COMPLETED DATE/TIME: 11/20/2016 11:43 am; 11/20/2016 2:35 pm REASON FOR STUDY: INCONCLUSIVE; 92.2; BILATERAL BREAST N63 R92.2 INCONCLUSIVE MAMMOGRAM COMPARISON: Multiple since 2008 TECHNIQUE: Cone compression craniocaudal and mediolateral oblique images of the right breast recorde d with digital acquisition. Right breast 90 mediolateral view was also obtained. Bilateral breast ultrasound was also performed. LIMITATIONS: None. FINDINGS: BREAST: Right breast diagnostic mammograms MASSES/CALCIFICATIONS: At the right breast 12 o'clock position, a mammographic nodule with calcificat ions is present, about 7 to 8 mm in diameter. This has calcifications which have increased compared to priors. At ultrasound, a small 7 mm well-circumscribed mammographic nodule with calcifications is identified in this location. ARCHITECTURAL DISTORTION: None. DEVELOPING DENSITY: None. ASYMMETRY: None noted. OTHER: Right breast implant present Read with the assistance of CAD. .[facility] - R2 Cenova Version 1.3 .[facility] - R2 Cenova Version 1.3 .[facility] - R2 Cenova Version 2.4 .[facility] - R2 Cenova Version 2.4 .[facility] - R2 Grounds Restoration Specialist Version 9.2 Right breast ultrasound: Ultrasound of the right breast demonstrates a 7 to 8 mm well-circumscribed hypoechoic mammographic no dule with some internal calcifications. No clear acoustic through transmission. This is indetermina te, ultrasound-guided core biopsy of this small nodule with post biopsy clip placement and follow-up two-view mammogram is recommended. Left breast ultrasound: In the medial left breast on left CC view 10/19/2016, a mammographic nodule is present. Medial left br east at the 7 to 8 o'clock position ultrasound demonstrates a well-circumscribed hypoechoic nodule wi th partial border loss and limited acoustic through transmission measuring about 12 x 8 mm in size. No internal color flow. This may represent a focus of fat necrosis or a complex cyst. Malignancy co uld not entirely be excluded. Ultrasound-guided core biopsy/cyst aspiration with clip placement and post biopsy mammograms of this lesion is recommended. IMPRESSION: Bilateral breast findings for which ultrasound-guided core biopsy, post biopsy clip plac ement and follow-up two-view mammogram is recommended. BREAST DENSITY: b. There are scattered areas of fibroglandular density. BIRAD: 4 Suspicious. Biopsy should be considered. RECOMMENDATION: RECOMMENDED FOLLOW UP: Bilateral breast ultrasound guided core biopsy, post biopsy c lip placement, with follow-up two-view mammograms SPECIFIC INTERVENTION/IMAGING/CONSULTATION RECOMMENDED:As above COMMUNICATION:These results were discussed with the patient, she is amenable to the procedures. This report was also called to Hilton Galan PA-C, 1145 hours, 11/20/2016 COMMENT: The patient has been notified of the results by letter per SA requirements. Additional no tification policies are in place for contacting patient with suspicious or incomplete findings. Quality ID #[id number]: The [employer] recommends an annual screening mammogram for women aged 40 years or over. This facility utilizes a reminder system to ensure that all patients receive reminder letters, and/or direct phone calls for appointments. This includes reminders for routine scr eening mammograms, diagnostic mammograms, or other Breast Imaging Interventions when appropriate. Th is patient will be placed in the appropriate reminder system. The [employer] (ACR) has developed recommendations for screening MRI of the breast s in certain patient populations, to be used in conjunction with mammography. Breast MRI surveillanc e may be appropriate for women with more than 20% lifetime risk of developing breast cancer as deter mined by genetic testing, significant family history of the disease, or history of mantle radiation f or Hodgkins Disease. ACR Practice Guidelines 2008. TECHNICAL DOCUMENTATION: FINDING NUMBER: (1) ASSESSMENT: (1) JOB ID: [id number] [employer]- All Rights Reserved
== END ==
LOC: WI 10:28
PROVIDERS: ATTEND Physician Assistant
DX: N63 Unspecified lump in breast (principal)
CPT/HCPCS: 76642; G0206

== ENCOUNTER 2016-11-23 23:12 | Emergency (ER) | payer MEDICARE, OTHER ==
--- NOTE | 2016-11-24 01:24 | ER Document Report ---
HPI - HPI Pain Level: 5 Notes: Patient is a 60-year-old female with a history of chronic low back pain and sciatica presents to the ED only for a refill of Phenergan for nausea. Patient states that she has been getting Phenergan, Endocet, and a muscle relaxer from her orthopedic doctor who states she has been following with routinely. The Endocet causes her to have some nausea, but it does help with her pain so she wants to keep taking that medication. Patient states that the doctor office did not call in the refill for Phenergan today which is what brought her into the ED. She has no acute changes in her pain. Patient states that she is still eating and drinking without any difficulties. She denies any urinary retention, loss of control of bowel or bladder, numbness/tingling, muscle paralysis/weakness. She denies any right leg pain at this time. Patient states that on occasion when her back flares up the pain will radiate down into her leg. No other concerns or complaints. Denies any headache, fever, chest pain, palpitations, syncope, cough, shortness of breath, wheeze, dyspnea, abdominal pain,diarrhea, dysuria, hematuria, saddle anesthesia, or rash. Patient states that she does have a follow-up on the with orthopedics for another nerve block in her lower back. - ROS Notes: REVIEW OF SYSTEMS: CONSTITUTIONAL : Denies fever, chills, or sweats. Denies recent illness. EENT: Denies eye, ear, throat, or mouth pain or symptoms. Denies nasal or sinus congestion or discharge. Denies throat, tongue, or mouth swelling or difficulty swallowing. CARDIOVASCULAR: Denies chest pain. Denies palpitations or racing or irregular heart beat. Denies ankle edema. RESPIRATORY: Denies cough, cold, or chest congestion. Denies shortness of breath, difficulty breathing, or wheezing. GASTROINTESTINAL: see hpi GENITOURINARY: Denies difficulty urinating, painful urination, burning, frequency, blood in urine, or discharge. FEMALE GENITOURINARY: Denies vaginal bleeding, heavy or abnormal periods, irregular periods. Denies vaginal discharge or odor. MUSCULOSKELETAL: see hpi SKIN: Denies rash, lesions or sores. NEUROLOGICAL: Denies confusion or altered mental status. Denies passing out or loss of consciousness. Denies dizziness or lightheadedness. Denies headache. Denies weakness or paralysis or loss of use of either side. Denies problems with gait or speech. Denies sensory loss, numbness, or tingling. ALL OTHER SYSTEMS REVIEWED AND NEGATIVE. Dictation was performed using [employer] voice recognition software - REPRODUCTIVE LMP: na Reproductive: DENIES: : - DERM Skin Color: Normal Past Medical History - Social History Smoking Status: Never Smoker Family History: Arthritis, CVA, Hyperlipidemia, Hypertension, Malignancy, Thyroid Disfunction Patient has suicidal ideation: No Patient has homicidal ideation: No - Past Medical History Cardiac Medical History: Reports: Hx Hypercholesterolemia, Hx Hypertension Pulmonary Medical History: Reports: Hx Asthma Neurological Medical History: Reports: Hx Cerebrovascular Accident, Hx Migraine Endocrine Medical History: Reports: Hx Diabetes Mellitus Type 2 - borderline diet controlled, Hx Hypothyroidism Renal/ Medical History: Reports: Hx Kidney Stones, Hx Ovarian Cysts. Denies: Hx Peritoneal Dialysis GI Medical History: Reports: Hx Gastroesophageal Reflux Disease, Hx Irritable Bowel Musculoskeltal Medical History: Reports Hx Arthritis, Reports Hx Musculoskeletal Deformity, Reports Hx Musculoskeletal Trauma Psychiatric Medical History: Reports: Hx Bipolar Disorder, Hx Depression, Hx Schizophrenia Past Surgical History: Reports: Hx Appendectomy - Ex Lap, Hx Section, Hx Gynecologic Surgery - hyst, Hx Hysterectomy, Hx Thyroid Surgery, Hx Tonsillectomy - Immunizations Immunizations up to date: Yes Hx Diphtheria, Pertussis, Tetanus Vaccination: Yes Hx Pneumococcal Vaccination: 12/15/15 Vertical Provider Document - CONSTITUTIONAL Agree With Documented VS: Yes Notes: PHYSICAL EXAMINATION: GENERAL: Well-appearing, well-nourished and in no acute distress. LUNGS: Breath sounds clear to auscultation bilaterally and equal. No wheezes rales or rhonchi. HEART: Regular rate and rhythm without murmurs, rubs, gallops. ABDOMEN: Soft, nontender, nondistended abdomen. No guarding, no rebound. No masses appreciated. Normal bowel sounds present. No CVA tenderness bilaterally. Musculoskeletal: LE's b/l: FROM to passive/active. Strength 5+/5. No deficits noted. No bony tenderness of extremities. Back: FROM to passive/active. Strength 5+/5. No vertebral point tenderness, stepoffs, or deformities. No other bony tenderness or ecchymosis. SLR negative b/l. Extremities: No cyanosis, clubbing, or edema b/l. Peripheral pulses 2+. Capillary refill less than 2 seconds. NEUROLOGICAL: Normal speech, normal gait. Normal sensory, motor exams. Reflexes 2+ b/l. PSYCH: Normal mood, normal affect. SKIN: Warm, Dry, normal turgor, no rashes or lesions noted. - INFECTION CONTROL TRAVEL OUTSIDE OF THE [place] IN LAST 30 DAYS: No - RESPIRATORY O2 Sat by Pulse Oximetry: 95 Course - Re-evaluation Re-evalutation: 11/24/16 01:24 Patient is an afebrile, well-hydrated, 60-year-old female who presents the ED for medication for her nausea secondary to her pain medication. Her vitals are stable. PE otherwise unremarkable for any focal neurological deficits. Low suspicion for any meningitis, fracture, expanding/ruptured AAA, cauda equina syndrome, epidural mass lesion/abscess, herniated disc causing severe spinal stenosis, or other systemic infection at this time. Patient is aware that his condition can change from initial presentation and that he needs monitor symptoms closely for any acute changes. I will send her home with a short script of phenergan (allergy to zofran) to get her to next week until her Orthopedic provider can refill a script for her. I will also send her home with voltaren gel that she may try which may help her not have to use the narcotic as often. Keep consult with your orthopedic provider on 28 November. Recheck with her PCM this week. Return to the ED with any worsening/concerning symptoms otherwise as reviewed discharge. Patient is in agreement. - Vital Signs Vital signs: Temp Pulse Resp BP Pulse Ox 97.4 F 102 H 20 147/113 H 95 11/23/16 23:18 11/23/16 23:18 11/23/16 23:18 11/23/16 23:18 11/23/16 23:18 Discharge - Discharge Clinical Impression: Nausea alone Condition: Stable Disposition: HOME, SELF-CARE Additional Instructions: Maintain adequate fluid and food intake Take medication as directed Keep consult with orthopedic provider as scheduled Recheck with your PCM this week Return to the ED with any worsening symptoms and/or development of fever, headache, chest pain, palpitations, syncope, shortness of breath, trouble breathing, abdominal pain, n/v/d, blood in stool/urine, loss of control of bowel /bladder, urinary retention, muscle weakness/paralysis, saddle anesthesia, numbness/tingling, or other worsening symptoms that are concerning to you. Prescriptions: Diclofenac Sodium [Voltaren] 4 gm TP QID PRN #100 gel..gm. PRN Reason: Promethazine HCl [Phenergan 25 mg Tablet] 1 tab PO Q6H PRN #12 tablet PRN Reason: Forms: Elevated Blood Pressure Referrals: [facility] [Provider Group] - Follow up as needed
[2016-11-24] MEDS ORDERED: PROMETHAZINE HCL 25 MG TABLET PO ONE (01:47)
[2016-11-24 01:59] VITALS: BP 150/99
== END 2016-11-24 01:59 | disposition home or self-care (01) ==
LOC: ER 23:12
DX: R11.0 Nausea (principal); M54.5 Low back pain; G89.29 Other chronic pain; Z79.899 Other long term (current) drug therapy
CPT/HCPCS: 99283; A9270

== ENCOUNTER → 2016-12-07 | Day surgery (SDC) | payer MEDICARE, OTHER ==
[~2016-12-07] MED LIST: LIDOCAINE 1% INJ-PF (10 MG/ML) 30 ML SDV ONE
--- NOTE | 2016-12-10 16:20 | WOMENS IMAGING REPORT ---
EXAM DESCRIPTION: U/S BREAST BX; LEFT DIG DX MAMMO NO CHG COMPLETED DATE/TIME: 12/07/2016 2:29 pm; 12/07/2016 2:49 pm REASON FOR STUDY: UNSPECIFIED LUMP IN BREAST; N63 S/P US LEFT BREAST BX FOR CLIP PLACEMENT N63 UNSP ECIFIED LUMP IN BREAST COMPARISON: None. TECHNIQUE: The procedure was discussed with the patient and the patient agreed to proceed. The patient was scanned and the area of interest in the left breast was localized. This correlates w ith the area of concern on prior imaging studies. This area was targeted for ultrasound-guided core b iopsy. After sterile skin prep and 4 mL local lidocaine 1% for skin and deep tissue anesthesia, a 14 gauge c ore biopsy needle was used to obtain several cores of tissue from the lesion. Under ultrasound rin nce, a ribbon clip was placed in the areas sampled. There were no immediate post-procedure complicat ions. MAMMOGRAM: Post-procedure two view mammogram was acquired in the digital mammogram suite. The clip wa s in the expected location. No significant hematoma. Pathology yields a diagnosis of benign fibrocystic change. Pathology is concordant. LIMITATIONS: None. FINDINGS: Ultrasound guided breast biopsy as described above. POST PROCEDURE MAMMOGRAMS FOR MARKER PLACEMENT: Yes IMPRESSION: ULTRASOUND-GUIDED CORE BIOPSY OF THE LEFT BREAST YIELDS A DIAGNOSIS OF BENIGN FIBROCYSTI C CHANGE. COMMENT: Similar-appearing right breast lesion was not biopsied due to proximity to the implant. COMMUNICATION: The patient's provider has been notified of the findings. The provider will discuss th e findings with the patient. Patient medication list reviewed: Yes- Quality ID# [id number]:Eligible professional attests to documenting i n the medical record they obtained, updated, or reviewed the patient's current medications. TECHNICAL DOCUMENTATION: JOB ID: [id number] [employer]- All Rights Reserved
== END ==
LOC: WI 12:22 → EDSTATUS 13:00
PROVIDERS: ATTEND Radiology Radiation Oncology
PROC: 0HBU3ZX Excision of Left Breast, Percutaneous Approach, Diagnostic (ICD-10-PCS; principal; 2016-12-07)
DX: N60.12 Diffuse cystic mastopathy of left breast (principal)
CPT/HCPCS: 88342 ×2; 88305 ×2; 19083; J3490

== ENCOUNTER 2016-12-08 09:17 | Emergency (ER) | payer MEDICARE, OTHER ==
--- NOTE | 2016-12-08 10:25 | ER Document Report ---
ED GI/ - General Chief Complaint: Vaginal Itching Stated Complaint: VAGINAL PROBLEMS Time Seen by Provider: 12/08/16 09:46 Mode of Arrival: Ambulatory Information source: Patient TRAVEL OUTSIDE OF THE [place] IN LAST 30 DAYS: No - HPI Patient complains to provider of: Other - Groin rash Onset: Last week Timing/Duration: Gradual Quality of pain: Burning Severity at maximum: Mild Severity in ED: Mild Pain Level: 1 Vaginal bleeding (Compared to normal period): None Sexual history: Inactive Associated symptoms: denies: Chills, Constipation, Diarrhea, Dysuria, Fever, Hematuria, Nausea, Odor, Urinary hesitancy, Urinary frequency, Urinary retention , Urinary urgency, Vaginal discharge, Vomiting Exacerbated by: Walking Relieved by: Denies Notes: 12/08/16 10:21 Patient arrives with complaints of vaginal and groin rash and irritation for the last 24 hours. She states that she had some irritation a few weeks ago, she used [id number] Vagisil which seemed to improve things. Yesterday she noticed that her groin and external vagina was red and irritated and itchy. She denies any vaginal bleeding or vaginal discharge. She has had a total hysterectomy in the past. She has not been sexually active for over 10 years. She denies fever. She denies nausea, vomiting, diarrhea. She denies any other rashes. She is not a diabetic. She denies any dysuria or hematuria. No abdominal pain. She denies any other complaints at this time. - Related Data Allergies/Adverse Reactions: hydrocodone [Hydrocodone] Allergy (Severe, Verified 12/08/16 09:27) sertraline HCl [From Zoloft] Allergy (Severe, Verified 12/08/16 09:27) hives, resp arrest propranolol HCl [From Inderal] Allergy (Intermediate, Verified 12/08/16 09:27) Hives lamotrigine [From Lamictal] Allergy (Verified 12/08/16 09:27) ondansetron Allergy (Verified 12/08/16 09:27) propranolol Allergy (Verified 12/08/16 09:27) Past Medical History - General Last Menstrual Period: hysterectomy - Social History Smoking Status: Never Smoker Chew tobacco use (# tins/day): No Frequency of alcohol use: Occasional Drug Abuse: None Family History: Arthritis, CVA, Hyperlipidemia, Hypertension, Malignancy, Thyroid Disfunction - Past Medical History Cardiac Medical History: Reports: Hx Hypercholesterolemia, Hx Hypertension Pulmonary Medical History: Reports: Hx Asthma Neurological Medical History: Reports: Hx Cerebrovascular Accident, Hx Migraine Endocrine Medical History: Reports: Hx Diabetes Mellitus Type 2 - borderline diet controlled, Hx Hypothyroidism Renal/ Medical History: Reports: Hx Kidney Stones, Hx Ovarian Cysts. Denies: Hx Peritoneal Dialysis GI Medical History: Reports: Hx Gastroesophageal Reflux Disease, Hx Irritable Bowel Musculoskeltal Medical History: Reports Hx Arthritis, Reports Hx Musculoskeletal Deformity, Reports Hx Musculoskeletal Trauma Psychiatric Medical History: Reports: Hx Bipolar Disorder, Hx Depression, Hx Schizophrenia Past Surgical History: Reports: Hx Appendectomy - Ex Lap, Hx Section, Hx Gynecologic Surgery - hyst, Hx Hysterectomy, Hx Thyroid Surgery, Hx Tonsillectomy - Immunizations Immunizations up to date: Yes Hx Diphtheria, Pertussis, Tetanus Vaccination: Yes Hx Pneumococcal Vaccination: 12/15/15 Review of Systems - Review of Systems -: Yes All other systems reviewed and negative Physical Exam - Vital signs Vitals: Temp Pulse Resp BP Pulse Ox 98.8 F 88 20 154/107 H 98 12/08/16 09:27 12/08/16 09:27 12/08/16 09:27 12/08/16 09:27 12/08/16 09:27 - Notes Notes: GENERAL: alert, cooperative, nontoxic, no distress. HEAD: normocephalic, atraumatic EYES: conjunctiva pink without discharge, no external redness or swelling. EARS: no external swelling, no external redness NOSE: atraumatic, no external swelling MOUTH/THROAT: mucous membranes moist and pink NECK: soft, supple, full range of motion, no meningismus. CHEST: no distress, lungs clear and equal throughout. No wheezing, rales, rhonchi. CARDIAC: regular rate and rhythm, no murmur, normal capillary refill, normal pulses. BACK: full range of motion, no CVA tenderness. EXTREMITIES: full range of motion of all extremities. No redness, no swelling. NEURO: alert and oriented 3, no focal deficits, full range of motion of all extremities. PYSCH: appropriate mood, affect. Patient is cooperative. SKIN: pink, warm, dry, no rash. - Abdominal Inspection: Normal Distension: No distension Tenderness: Nontender Organomegaly: No organomegaly - Genitourinary External exam: Other - Patient is noted to have erythema and slight moisture to the external vagina/labia majora/groin/pubis. This is consistent with Debi. No vesicles. No bleeding. Speculum exam was deferred at this time. Course - Re-evaluation Re-evalutation: 12/08/16 10:23 Patient is nontoxic appearing with stable vitals. The patient has had a rash to the pubis groin and external vagina for the last 24 hours. She has an exam consistent with Debi. There is no vesicles. She is not sexually active. No vaginal bleeding or discharge. She has had a total hysterectomy. Patient will be discharged home with antifungal cream. Follow-up if not better in 1 week, sooner for increased pain, fever, redness, any further concerns. The patient was instructed to use the cream for at least 48 hours after the rash has cleared. The patient is noted to have elevated blood pressure during today's emergency department visit. The patient was informed of this finding. The patient was instructed that this may be related to pre-hypertension and requires further evaluation with a primary care provider. The patient has no hypertensive symptoms at this time. - Vital Signs Vital signs: Temp Pulse Resp BP Pulse Ox 98.8 F 88 20 154/107 H 98 12/08/16 09:27 12/08/16 09:27 12/08/16 09:27 12/08/16 09:27 12/08/16 09:27 Discharge - Discharge Clinical Impression: Candidal dermatitis Condition: Stable Disposition: HOME, SELF-CARE Instructions: Vaginal Yeast Infection ([facility]) Additional Instructions: Use cream as directed. Use the cream for 2 days after the rash has improved. Follow-up if not better in 1 week, sooner for increased pain, fever, redness, drainage, any further concerns. Prescriptions: Butenafine HCl [Lotrimin Ultra 1% Cream] 1 applic TP BID #2 tube Referrals: YEE LEONARD PA-C [Primary Care Provider] - Follow up as needed
[2016-12-08 10:38] VITALS: BP 159/115
== END 2016-12-08 10:38 | disposition home or self-care (01) ==
LOC: ER 09:17
DX: L30.8 Other specified dermatitis (principal); R21 Rash and other nonspecific skin eruption
CPT/HCPCS: 99283

== ENCOUNTER 2016-12-23 08:58 | Emergency (ER) | payer MEDICARE, OTHER ==
[2016-12-23] MEDS ORDERED: DEXAMETHASONE SOD PHOS INJ 10 MG/1 ML VIAL IM ONE (11:10)
[2016-12-23] MEDS ORDERED: MORPHINE SULFATE 10 MG/ML INJ IM ONE (11:10)
--- NOTE | 2016-12-23 11:12 | ER Document Report ---
ED Neck/Back Problem - General Chief Complaint: High Blood Pressure Stated Complaint: LEG PAIN Time Seen by Provider: 12/23/16 10:21 Mode of Arrival: Ambulatory Information source: Patient TRAVEL OUTSIDE OF THE [place] IN LAST 30 DAYS: No - HPI Patient complains to provider of: Pain, Lower back Onset: Chronic Timing: Waxing and waning, Worse Quality of pain: Achy, Burning, Stabbing Severity: Severe Pain Level: 5 Recent injury: No Associated symptoms: Like prior neck/back pain, Radiation to leg. denies: Incontinence, Numbness/tingling, Unable to urinate Exacerbated by: Movement of trunk Relieved by: Nothing Similar symptoms previously: Yes Recently seen / treated by doctor: Yes Notes: Patient is a 60-year-old female with a history of chronic right-sided low back pain that radiates down her leg, she presents to the emergency room today complaining that the pain has worsened over the past few days, she is scheduled to have injections in her back every 3 months and is scheduled for an appointment for this tomorrow at the [facility] for surgery, she denies any recent injury, no bowel or bladder dysfunction, no saddle anesthesia, no fevers, no urinary symptoms, she is concerned that she has been taking her Endocet 10/325's every 6 hours and it seems to be wearing off before the 6 hours is up, she does not want to take more of this pain medication but fears that she will be in significant pain until her appointment tomorrow that she will be in significant pain until her appointment tomorrow, she is also concerned that her blood pressure has been elevated likely related to her pain - Related Data Allergies/Adverse Reactions: hydrocodone [Hydrocodone] Allergy (Severe, Verified 12/23/16 09:03) sertraline HCl [From Zoloft] Allergy (Severe, Verified 12/23/16 09:03) hives, resp arrest propranolol HCl [From Inderal] Allergy (Intermediate, Verified 12/23/16 09:03) Hives lamotrigine [From Lamictal] Allergy (Verified 12/23/16 09:03) ondansetron Allergy (Verified 12/23/16 09:03) propranolol Allergy (Verified 12/23/16 09:03) Past Medical History - General Information source: Patient - Social History Smoking Status: Former Smoker Chew tobacco use (# tins/day): No Frequency of alcohol use: Occasional Drug Abuse: None Family History: Arthritis, CVA, Hyperlipidemia, Hypertension, Malignancy, Thyroid Disfunction - Past Medical History Cardiac Medical History: Reports: Hx Hypercholesterolemia, Hx Hypertension Pulmonary Medical History: Reports: Hx Asthma Neurological Medical History: Reports: Hx Cerebrovascular Accident, Hx Migraine Endocrine Medical History: Reports: Hx Diabetes Mellitus Type 2 - borderline diet controlled, Hx Hypothyroidism Renal/ Medical History: Reports: Hx Kidney Stones, Hx Ovarian Cysts. Denies: Hx Peritoneal Dialysis GI Medical History: Reports: Hx Gastroesophageal Reflux Disease, Hx Irritable Bowel Musculoskeltal Medical History: Reports Hx Arthritis, Reports Hx Musculoskeletal Deformity, Reports Hx Musculoskeletal Trauma Psychiatric Medical History: Reports: Hx Bipolar Disorder, Hx Depression, Hx Schizophrenia Past Surgical History: Reports: Hx Appendectomy - Ex Lap, Hx Section, Hx Gynecologic Surgery - hyst, Hx Hysterectomy, Hx Thyroid Surgery, Hx Tonsillectomy - Immunizations Immunizations up to date: Yes Hx Diphtheria, Pertussis, Tetanus Vaccination: Yes Hx Pneumococcal Vaccination: 12/15/15 Review of Systems - Review of Systems Constitutional: No symptoms reported EENT: No symptoms reported Cardiovascular: No symptoms reported Respiratory: No symptoms reported Gastrointestinal: No symptoms reported Genitourinary: No symptoms reported Female Genitourinary: No symptoms reported Musculoskeletal: See HPI Skin: No symptoms reported Hematologic/Lymphatic: No symptoms reported Neurological/Psychological: No symptoms reported -: Yes All other systems reviewed and negative Physical Exam - Vital signs Vitals: Temp Pulse Resp BP Pulse Ox 99.1 F 105 H 20 169/109 H 96 12/23/16 09:04 12/23/16 09:04 12/23/16 09:04 12/23/16 09:04 12/23/16 09:04 Interpretation: Normal - General General appearance: Appears well, Alert - HEENT Head: Normocephalic, Atraumatic Eyes: Normal Pupils: PERRL - Respiratory Respiratory status: No respiratory distress Chest status: Nontender Breath sounds: Normal Chest palpation: Normal - Cardiovascular Rhythm: Regular Heart sounds: Normal auscultation Murmur: No - Abdominal Inspection: Normal Distension: No distension Bowel sounds: Normal Tenderness: Nontender Organomegaly: No organomegaly - Back Back: Normal, Tender - Tenderness to palpate in the right lumbar paraspinal musculature down into the buttocks, pain with straight leg raise on the right - Extremities General upper extremity: Normal inspection, Nontender, Normal color, Normal ROM , Normal temperature General lower extremity: Normal inspection, Nontender, Normal color, Normal ROM , Normal temperature, Normal weight bearing. No: Juliana's sign - Neurological Neuro grossly intact: Yes Cognition: Normal Orientation: AAOx4 Donald Coma Scale Eye Opening: Spontaneous Donald Coma Scale Verbal: Oriented Vicky Coma Scale Motor: Obeys Commands Donald Coma Scale Total: 15 Speech: Normal Motor strength normal: LUE, RUE, LLE, RLE Sensory: Normal - Psychological Associated symptoms: Normal affect, Normal mood - Skin Skin Temperature: Warm Skin Moisture: Dry Skin Color: Normal Course - Re-evaluation Re-evalutation: 12/23/16 11:37 Patient reports moderate relief of symptoms with injections that she received in the department, she was discharged with instructions for follow-up and advised to return if any additional concerns, patient acknowledges understanding and agreement with this plan - Vital Signs Vital signs: Temp Pulse Resp BP Pulse Ox 98.6 F 57 L 20 136/99 H 95 12/23/16 11:41 12/23/16 11:41 12/23/16 09:04 12/23/16 11:41 12/23/16 11:41 Discharge - Discharge Clinical Impression: Low back pain Qualifiers: Chronicity: chronic Back pain laterality: right Sciatica presence: with sciatica Sciatica laterality: sciatica of right side Qualified Code(s): M54.41 - Lumbago with sciatica, right side Condition: Stable Disposition: HOME, SELF-CARE Instructions: High Blood Pressure ([facility]), Low Back Pain ([facility]) Additional Instructions: Follow up with your primary care provider in one to 2 days. Return to the emergency room immediately if symptoms worsen or any additional concerns. Referrals: YEE LEOANRD PA-C [Primary Care Provider] - Follow up as needed
[2016-12-23 11:45] VITALS: BP 136/99
== END 2016-12-23 11:47 | disposition home or self-care (01) ==
LOC: ER 08:58
DX: M54.41 Lumbago with sciatica, right side (principal); M54.2 Cervicalgia; E78.00 Pure hypercholesterolemia, unspecified; I10 Essential (primary) hypertension; E11.9 Type 2 diabetes mellitus without complications; E03.9 Hypothyroidism, unspecified; K21.9 Gastro-esophageal reflux disease without esophagitis; Z86.73 Personal history of transient ischemic attack (TIA), and cerebral infarction without residual deficits; Z87.891 Personal history of nicotine dependence; Z88.6 Allergy status to analgesic agent; Z90.710 Acquired absence of both cervix and uterus
CPT/HCPCS: 99283; 96372; J2270; J1100

== ENCOUNTER 2017-01-05 03:24 | Emergency (ER) | payer MEDICARE, OTHER ==
[2017-01-05 03:30] VITALS: BP 164/115
[2017-01-05] MEDS ORDERED: MORPHINE SULFATE 10 MG/ML INJ IM ONE (04:09)
[2017-01-05] MEDS ORDERED: DEXAMETHASONE SOD PHOS INJ 10 MG/1 ML VIAL IM ONE (04:09)
--- NOTE | 2017-01-05 04:22 | ER Document Report ---
HPI - HPI Patient complains to provider of: lower back pain Pain Level: 5 Context: Patient is a 61-year-old female who comes emergency department for chief complaint of lower back pain and radiation of pain down the back of her right leg with tingling and sharp pains. She states she has had this for a long time now, she states that she was recently decreased on her pain medication to twice a day instead of 3 times daily (endocet), she states she has had increasing pain over the past few days. She denies any specific injury. She reports she has had MRI recently and she has two herniated discs. She completed back injections. She states she called her pain management and they will not be available until Saturday to make any adjustments. She denies any numbness, incontinence, fever. She denies history of IV drug abuse. - CARDIOVASCULAR Cardiovascular: DENIES: Chest pain - REPRODUCTIVE Reproductive: DENIES: : - DERM Skin Color: Normal Past Medical History - General Information source: Patient - Social History Smoking Status: Never Smoker Chew tobacco use (# tins/day): No Frequency of alcohol use: Occasional Drug Abuse: None Lives with: Family Family History: Arthritis, CVA, Hyperlipidemia, Hypertension, Malignancy, Thyroid Disfunction - Past Medical History Cardiac Medical History: Reports: Hx Hypercholesterolemia, Hx Hypertension Pulmonary Medical History: Reports: Hx Asthma Neurological Medical History: Reports: Hx Cerebrovascular Accident, Hx Migraine Endocrine Medical History: Reports: Hx Diabetes Mellitus Type 2 - borderline diet controlled, Hx Hypothyroidism Renal/ Medical History: Reports: Hx Kidney Stones, Hx Ovarian Cysts. Denies: Hx Peritoneal Dialysis GI Medical History: Reports: Hx Gastroesophageal Reflux Disease, Hx Irritable Bowel Musculoskeltal Medical History: Reports Hx Arthritis, Reports Hx Musculoskeletal Deformity, Reports Hx Musculoskeletal Trauma Psychiatric Medical History: Reports: Hx Bipolar Disorder, Hx Depression, Hx Schizophrenia Past Surgical History: Reports: Hx Appendectomy - Ex Lap, Hx Section, Hx Gynecologic Surgery - hyst, Hx Hysterectomy, Hx Thyroid Surgery, Hx Tonsillectomy - Immunizations Immunizations up to date: Yes Hx Diphtheria, Pertussis, Tetanus Vaccination: Yes Hx Pneumococcal Vaccination: 12/15/15 Vertical Provider Document - CONSTITUTIONAL General Appearance: WD/WN, No Apparent Distress - INFECTION CONTROL TRAVEL OUTSIDE OF THE [place] IN LAST 30 DAYS: No - HEENT HEENT: Atraumatic, Normocephalic - RESPIRATORY Respiratory: Breath Sounds Normal, No Respiratory Distress O2 Sat by Pulse Oximetry: 96 - CARDIOVASCULAR Cardiovascular: Regular Rate, Regular Rhythm - GI/ABDOMEN Gastrointestinal: Abdomen Soft, Abdomen Non-Tender - BACK Back: negative: Normal Inspection - No midline tenderness of the back, no saddle anesthesia, moves all extremities and full range of motion, normal distal neurovascular exam. There is paraspinal muscle tenderness along the right lumbar musculature extending towards the buttocks, also straight leg raise on the right - MUSCULOSKELETAL/EXTREMETIES Musculoskeletal/Extremeties: MAEW, FROM, Non-Tender - NEURO Level of Consciousness: Awake, Alert, Appropriate - DERM Integumentary: Warm, Dry, No Rash Course - Re-evaluation Re-evalutation: Patient is well-appearing on my exam, has positive straight leg raise, evidence of sciatic on exam. No concerning abnormalities, no deficits, no red flag symptoms. She is not tachycardic on my exam. Unfortunately vital signs were not trended. Patient given an injection of pain medicine and dexamethasone, instructed to follow-up with her primary care provider on Saturday. Discussed return precautions in detail. Patient states understanding and agreement. - Vital Signs Vital signs: Temp Pulse Resp BP Pulse Ox 98.6 F 104 H 20 164/115 H 96 01/05/17 03:28 01/05/17 03:28 01/05/17 03:28 01/05/17 03:28 01/05/17 03:28 Discharge - Discharge Clinical Impression: Lower back pain Qualifiers: Chronicity: chronic Back pain laterality: right Sciatica presence: with sciatica Sciatica laterality: sciatica of right side Qualified Code(s): M54.41 - Lumbago with sciatica, right side Condition: Stable Disposition: HOME, SELF-CARE Additional Instructions: Please follow-up with your pain management for management of your chronic sciatica. Return the emergency department for any concerning symptoms including new numbness, loss of bowel or bladder control, fever, or any other concerning symptoms. Referrals: YEE LEONARD PA-C [Primary Care Provider] - Follow up as needed
== END 2017-01-05 05:00 | disposition home or self-care (01) ==
LOC: ER 03:24
DX: M54.41 Lumbago with sciatica, right side (principal); M54.5 Low back pain; M79.604 Pain in right leg; Z79.899 Other long term (current) drug therapy
CPT/HCPCS: 99283; 96372; J2270; J1100

== ENCOUNTER 2017-01-06 06:47 | Emergency (ER) | payer MEDICARE, OTHER ==
--- NOTE | 2017-01-06 08:20 | ER Document Report ---
HPI - HPI Patient complains to provider of: right sciatica Onset: Other - chronic Onset/Duration: Waxing and waning Quality of pain: Throbbing Pain Level: 4 Context: 61-year-old female with a history of chronic sciatica which waxes and wanes is unhappy because her primary care doctor at [facility] has decreased 10 mg Percocet from 3 times daily to twice daily. She did not want to take extra because then she would run out and she is returning to the emergency room for a pain shot and also another steroid shot. She was seen yesterday at 4:30 in the morning. No saddle anesthesia. No IV drug use. No fever. Associated Symptoms: None Exacerbated by: Movement Relieved by: Other - percocet Similar symptoms previously: Yes Recently seen / treated by doctor: Yes - she does have tomorrow - ROS ROS below otherwise negative: Yes Systems Reviewed and Negative: Yes All other systems reviewed and negative - REPRODUCTIVE Reproductive: DENIES: : Past Medical History - General Information source: Parent - Social History Smoking Status: Former Smoker Chew tobacco use (# tins/day): No Frequency of alcohol use: Occasional Drug Abuse: None Family History: Arthritis, CVA, Hyperlipidemia, Hypertension, Malignancy, Thyroid Disfunction Patient has suicidal ideation: No Patient has homicidal ideation: No - Past Medical History Cardiac Medical History: Reports: Hx Hypercholesterolemia, Hx Hypertension Pulmonary Medical History: Reports: Hx Asthma Neurological Medical History: Reports: Hx Cerebrovascular Accident, Hx Migraine Endocrine Medical History: Reports: Hx Diabetes Mellitus Type 2 - borderline diet controlled, Hx Hypothyroidism Renal/ Medical History: Reports: Hx Kidney Stones, Hx Ovarian Cysts. Denies: Hx Peritoneal Dialysis GI Medical History: Reports: Hx Gastroesophageal Reflux Disease, Hx Irritable Bowel Musculoskeltal Medical History: Reports Hx Arthritis, Reports Hx Musculoskeletal Deformity, Reports Hx Musculoskeletal Trauma Psychiatric Medical History: Reports: Hx Bipolar Disorder, Hx Depression, Hx Schizophrenia Past Surgical History: Reports: Hx Appendectomy - Ex Lap, Hx Section, Hx Gynecologic Surgery - hyst, Hx Hysterectomy, Hx Thyroid Surgery, Hx Tonsillectomy - Immunizations Immunizations up to date: Yes Hx Diphtheria, Pertussis, Tetanus Vaccination: Yes Hx Pneumococcal Vaccination: 12/15/15 Vertical Provider Document - CONSTITUTIONAL Agree With Documented VS: Yes Exam Limitations: No Limitations General Appearance: Mild Distress - tearful - INFECTION CONTROL TRAVEL OUTSIDE OF THE [place] IN LAST 30 DAYS: No - NECK Neck: Supple - RESPIRATORY O2 Sat by Pulse Oximetry: 100 - BACK Back: Normal Inspection Notes: tender right SI joint - MUSCULOSKELETAL/EXTREMETIES Musculoskeletal/Extremeties: MAMARISELA, FROM, Tender - see above - NEURO Level of Consciousness: Awake, Alert Motor/Sensory: No Motor Deficit, No Sensory Deficit Notes: traction on right leg decreases her pain from 5/5 to 3/5. - DERM Integumentary: Warm, Dry, No Rash Course - Re-evaluation Re-evalutation: 01/06/17 16:21 left message with pt, she had called earlier today not being able to afford the prednisone but when I checked with [employer] at [phone] she did pick it up and it was under $4. - Vital Signs Vital signs: Temp Pulse Resp BP Pulse Ox 98.8 F 94 18 185/102 H 100 01/06/17 06:51 01/06/17 06:51 01/06/17 06:51 01/06/17 06:51 01/06/17 06:51 Discharge - Discharge Clinical Impression: Chronic sciatica of right side Condition: Good Disposition: HOME, SELF-CARE Instructions: Sciatica ([facility]), Steroid Medication Additional Instructions: See her doctor tomorrow and discuss with him as the opiate prescriber that to 10 mg in the sits a day is not enough that this 3 times a day you are able to function better. The steroid dose pack may help Stretch as we practiced in the emergency department Please complete the patient satisfaction survey if you get one, and return it.. If you do not receive a survey, then you can go to the [facility] website, [email or web address] and place your comments about your very good care. Thank you very much. It was a pleasure being your medical provider today. Prescriptions: Prednisone [Deltasone 10 mg Tablet] 10 mg PO ASDIR PRN #21 tablet PRN Reason: Referrals: YEE LEONARD PA-C [Primary Care Provider] - Follow up as needed
[2017-01-06 08:29] VITALS: BP 169/98
== END 2017-01-06 08:35 | disposition home or self-care (01) ==
LOC: ER 06:47
DX: M54.31 Sciatica, right side (principal); E78.00 Pure hypercholesterolemia, unspecified; I10 Essential (primary) hypertension; E11.9 Type 2 diabetes mellitus without complications; E03.9 Hypothyroidism, unspecified; K21.9 Gastro-esophageal reflux disease without esophagitis; Z87.891 Personal history of nicotine dependence; Z86.73 Personal history of transient ischemic attack (TIA), and cerebral infarction without residual deficits; Z87.442 Personal history of urinary calculi; Z90.710 Acquired absence of both cervix and uterus
CPT/HCPCS: 99283

== ENCOUNTER 2017-01-13 03:25 | Emergency (ER) | payer MEDICARE, OTHER ==
[2017-01-13 03:31] VITALS: BP 135/90
[2017-01-13] MEDS ORDERED: KETOROLAC TROMETHAMINE INJ/PF 30 MG/1 ML SDV IM ONE (04:01)
--- NOTE | 2017-01-13 04:02 | ER Document Report ---
HPI - HPI Patient complains to provider of: back and leg pain Pain Level: 4 Context: Patient is a 61-year-old female who comes emergency department for chief complaint of lower back pain and radiation of pain down the back of her right leg with tingling and sharp pains. She states she has had this for a long time now, she states that she was recently decreased on her pain medication to twice a day instead of 3 times daily (endocet), she states she has had increasing pain over the past few days. She denies any specific injury. She reports she has had MRI recently and she has two herniated discs. She completed back injections. She states she called her pain management and they will not be available for another week to make any adjustments. She denies any numbness, incontinence, fever. She denies history of IV drug abuse. States she did not complete her steroids she was discharged from here with due to instruction from her pain management. takes baclofen at home - REPRODUCTIVE Reproductive: DENIES: : - DERM Skin Color: Normal Past Medical History - Social History Smoking Status: Never Smoker Family History: Arthritis, CVA, Hyperlipidemia, Hypertension, Malignancy, Thyroid Disfunction - Past Medical History Cardiac Medical History: Reports: Hx Hypercholesterolemia, Hx Hypertension Pulmonary Medical History: Reports: Hx Asthma Neurological Medical History: Reports: Hx Cerebrovascular Accident, Hx Migraine Endocrine Medical History: Reports: Hx Diabetes Mellitus Type 2 - borderline diet controlled, Hx Hypothyroidism Renal/ Medical History: Reports: Hx Kidney Stones, Hx Ovarian Cysts. Denies: Hx Peritoneal Dialysis GI Medical History: Reports: Hx Gastroesophageal Reflux Disease, Hx Irritable Bowel Musculoskeltal Medical History: Reports Hx Arthritis, Reports Hx Musculoskeletal Deformity, Reports Hx Musculoskeletal Trauma Psychiatric Medical History: Reports: Hx Bipolar Disorder, Hx Depression, Hx Schizophrenia Past Surgical History: Reports: Hx Appendectomy - Ex Lap, Hx Section, Hx Gynecologic Surgery - hyst, Hx Hysterectomy, Hx Thyroid Surgery, Hx Tonsillectomy - Immunizations Immunizations up to date: Yes Hx Diphtheria, Pertussis, Tetanus Vaccination: Yes Hx Pneumococcal Vaccination: 12/15/15 Vertical Provider Document - CONSTITUTIONAL Agree With Documented VS: Yes Notes: PHYSICAL EXAM GENERAL: Alert, interacts well. EXTREMITIES: Moves all 4 extremities spontaneously. No edema, radial and dorsalis pedis pulses 2/4 bilaterally. No cyanosis. Back: No evidence of spinal process tenderness, crepitus, deformities or step- offs. Noted right para lumbar muscular tenderness with her pain reproducible to palpation. Patient able to ambulate without difficulty. NEUROLOGICAL: Alert and oriented x4. Normal speech. PSYCH: Normal affect, normal mood. SKIN: Warm, dry, normal turgor. No rashes or lesions noted. - INFECTION CONTROL TRAVEL OUTSIDE OF THE [place] IN LAST 30 DAYS: No - RESPIRATORY O2 Sat by Pulse Oximetry: 96 Course - Re-evaluation Re-evalutation: 01/13/17 04:02 The patient presents with low back pain without signs of spinal cord compression , cauda equina syndrome, infection, aneurysm, or other serious etiology. The patient is neurologically intact. Given the extremely low risk of these diagnoses further testing and evaluation for these possibilities does not appear to be indicated at this time. The patient has been instructed to return if the symptoms worsen or change in any way. - Vital Signs Vital signs: Temp Pulse Resp BP Pulse Ox 98.7 F 100 20 135/90 H 96 01/13/17 03:29 01/13/17 03:29 01/13/17 03:29 01/13/17 03:29 01/13/17 03:29 Discharge - Discharge Clinical Impression: Chronic sciatica of right side Condition: Good Disposition: HOME, SELF-CARE Additional Instructions: LOW BACK PAIN: Three out of every four people will have an episode of disabling back pain during their lifetime. Most commonly the pain is due to straining of the muscles and ligaments in the low back. Usual treatment includes: (1) Rest on a firm surface. Avoid lying on your stomach. (2) Ice pack the painful area. After a few days, gentle heat may be used intermittently to relax the area, or ice packs can be continued. (3) Medication may be needed -- muscle relaxers and antiinflammatory medicines are commonly used. (4) As the back improves, exercises are prescribed to strengthen the back and abdominal muscles. Your doctor will advise you on the proper care for your back at each stage in your recovery. You may be better in a few days -- or healing may take several weeks. If new symptoms of a "herniated disc" (radiation of pain, numbness, or tingling down the back of the leg or weakness in the leg) occur, you should be re-examined. Further testing may be necessary. PAIN MEDICATION INJECTION: You have received an injection of a pain medication. You should experience significant pain relief within 45 minutes. If this injection was a narcotic -- it will impair your judgement, slow your reaction time and make you sleepy (as well as relieve your pain). Narcotics also can cause nausea. You should not drive, work with machinery, or perform any task requiring mental alertness until all effects of the medication are gone -- six to eight hours. Do not take any alcohol, or sedatives, and do not take any other medication without checking with your physician. MUSCLE RELAXERS: Muscle relaxing medications are usually prescribed for acute muscle spasm or injury to the neck and back. They are often combined with antiinflammatory pain medication for increased relief. You may stop the muscle relaxer when the pain and stiffness have improved. Start the medication again if spasms recur. Muscle relaxers may cause drowsiness, especially with the first dose. Do not operate machinery or drive while under the effects of the medication. Most muscle relaxers last up to 24 hours. Do not combine the medication with alcohol. ICE PACKS: Apply ice packs frequently against the painful area. Many different schedules are recommended, such as "20 minutes on, 20 minutes off" or "one hour ice, two hours rest." If you need to work, you may need to go longer between ice treatments. You should plan to have the area ice packed AT LEAST one fourth of the time. The ice should be applied over the wrap, tape, or splint, or over a layer of cloth -- not directly against the skin. Some ice bags have a built-in cloth and can be put directly on the skin. WARM PACKS: After approximately two days, apply gentle heat (such as a heating pad or hot water bottle) for about 20 to 30 minutes about every two hours -- at least four times daily. Warmth and elevation will help you make a more rapid recovery , and will ease the pain considerably. Do not use HOT heat, and never apply heat for longer than 30 minutes. The continuous heat can invisibly damage skin and muscles -- even when no burn is seen on the surface. Damaged muscles can make you MORE sore. FOLLOW-UP CARE: If you have been referred to a physician for follow-up care, call the physician s office for an appointment as you were instructed or within the next two days. If you experience worsening or a significant change in your symptoms, notify the physician immediately or return to the Emergency Department at any time for re-evaluation. Chronic Pain Control Stress, inactivity, and depression make pain more severe regardless of the cause of the pain. Stress and poor physical condition can cause pain such as headaches and backache. Relaxation: Rest in a quiet place with your eyes closed for 20 minutes twice daily. Concentrate on a pleasant image, or simply "feel" your breathing. Clear your mind. Stress management: Deal with your "stressors." Either take action, or eliminate the stressor from your life. Don't let things hang over you. Accept those things you can't change. Nutrition: Eat small, balanced meals -- don't skip, don't overeat. Meals should be high-carbohydrate, low-sugar, low-fat. Exercise: Exercise helps painful conditions and eases stress. Get 30 minutes of moderate exercise, five days a week. Do an activity that does not flare your pain. Precautions: Pain which continues to disrupt daily activities, or which changes in nature, requires a medical evaluation. Pain Clinic referral is available. We do not manage chronic pain in the Emergency Department. We will try to appropriately help you through an acute flare of your chronic painful condition , but for on-going chronic pain that does not improve, you will need to see your private doctor or paint technician. We do not provide repeated medication management of chronic painful conditions. If you wish, we can provide the name of local pain management physicians. Referrals: YEE LEONARD PA-C [Primary Care Provider] - Follow up as needed
== END 2017-01-13 04:15 | disposition home or self-care (01) ==
LOC: ER 03:25
DX: M54.31 Sciatica, right side (principal); E78.00 Pure hypercholesterolemia, unspecified; I10 Essential (primary) hypertension; E03.9 Hypothyroidism, unspecified; K21.9 Gastro-esophageal reflux disease without esophagitis; Z87.442 Personal history of urinary calculi; Z86.73 Personal history of transient ischemic attack (TIA), and cerebral infarction without residual deficits; Z90.710 Acquired absence of both cervix and uterus
CPT/HCPCS: 99283; 96372; J1885

== ENCOUNTER 2017-02-25 04:54 | Emergency (ER) | payer MEDICARE, OTHER ==
--- NOTE | 2017-02-25 05:39 | ER Document Report ---
HPI - HPI Patient complains to provider of: Abscess Onset: Last week Onset/Duration: Persistent Quality of pain: Sharp Pain Level: 3 Context: Patient complains of abscess to right buttock for the past week. Patient states that she has had increased pain causing her to take additional doses of her chronic pain medication. Patient denies any history of MRSA. Patient denies any fever. Associated Symptoms: Other - Abscess. denies: Fever Exacerbated by: Sitting Relieved by: Denies Similar symptoms previously: Yes Recently seen / treated by doctor: No - ROS ROS below otherwise negative: Yes Systems Reviewed and Negative: Yes All other systems reviewed and negative - CONSTITUTIONAL Constitutional: DENIES: Fever, Chills - GASTROINTESTINAL Gastrointestinal: DENIES: Nausea - REPRODUCTIVE Reproductive: DENIES: : - DERM Skin Color: Normal Notes: Abscess Past Medical History - General Information source: Patient - Social History Smoking Status: Never Smoker Frequency of alcohol use: None Drug Abuse: None Occupation: None Lives with: Family Family History: Arthritis, CVA, Hyperlipidemia, Hypertension, Malignancy, Thyroid Disfunction Patient has suicidal ideation: No Patient has homicidal ideation: No - Past Medical History Cardiac Medical History: Reports: Hx Hypercholesterolemia, Hx Hypertension Pulmonary Medical History: Reports: Hx Asthma Neurological Medical History: Reports: Hx Cerebrovascular Accident, Hx Migraine Endocrine Medical History: Reports: Hx Diabetes Mellitus Type 2 - borderline diet controlled, Hx Hypothyroidism Renal/ Medical History: Reports: Hx Kidney Stones, Hx Ovarian Cysts. Denies: Hx Peritoneal Dialysis GI Medical History: Reports: Hx Gastroesophageal Reflux Disease, Hx Irritable Bowel Musculoskeltal Medical History: Reports Hx Arthritis, Reports Hx Musculoskeletal Deformity, Reports Hx Musculoskeletal Trauma Psychiatric Medical History: Reports: Hx Bipolar Disorder, Hx Depression, Hx Schizophrenia Past Surgical History: Reports: Hx Appendectomy - Ex Lap, Hx Section, Hx Gynecologic Surgery - hyst, Hx Hysterectomy, Hx Thyroid Surgery, Hx Tonsillectomy - Immunizations Immunizations up to date: Yes Hx Diphtheria, Pertussis, Tetanus Vaccination: Yes Hx Pneumococcal Vaccination: 12/15/15 Vertical Provider Document - CONSTITUTIONAL Agree With Documented VS: Yes Exam Limitations: No Limitations General Appearance: WD/WN, No Apparent Distress - INFECTION CONTROL TRAVEL OUTSIDE OF THE [place] IN LAST 30 DAYS: No - HEENT HEENT: Atraumatic, Normocephalic - NECK Neck: Normal Inspection - RESPIRATORY Respiratory: No Respiratory Distress O2 Sat by Pulse Oximetry: 96 - BACK Back: Normal Inspection - MUSCULOSKELETAL/EXTREMETIES Musculoskeletal/Extremeties: MAEW - NEURO Level of Consciousness: Awake, Alert, Appropriate Motor/Sensory: No Motor Deficit - DERM Integumentary: Warm, Dry, Abscess - Very small 1 cm diameter area of erythema with minimal fluctuance Course - Vital Signs Vital signs: Temp Pulse Resp BP Pulse Ox 97.8 F 92 19 149/98 H 96 02/25/17 04:57 02/25/17 04:57 02/25/17 04:57 02/25/17 04:57 02/25/17 04:57 Procedures - Incision and Drainage Right Buttock Type: Simple Anesthetic type: 1% Lidocaine I&D procedure: Betadine prep applied Incision Method: Incision made by scalpel Amount/type of drainage: small amount of bloody drainage Adult Front & Back picture: 1 - tender abscess Discharge - Discharge Clinical Impression: Hx of essential hypertension, Abscess Condition: Stable Disposition: HOME, SELF-CARE Instructions: Abscess ([facility]), Dressing Instructions for Open Wounds ([facility]), Trimethoprim-Sulfa ([facility]), Warm Packs ([facility]) Additional Instructions: Return immediately for any new or worsening symptoms Followup with your primary care provider, call tomorrow to make a followup appointment Prescriptions: Mupirocin [Bactroban 2% Ointment 22 gm] 1 applic TP TID #22 gm Sulfamethoxazole/Trimethoprim [Bactrim Ds Tablet] 1 each PO BID #14 tablet Forms: Elevated Blood Pressure Referrals: YEE LEONARD PA-C [Primary Care Provider] - Follow up tomorrow
[2017-02-25] MEDS ORDERED: SULFAMETHOXAZOLE/TRIMETHOPRIM 800-160 MG TABLET PO ONE (06:28)
[2017-02-25 06:54] VITALS: BP 134/90
== END 2017-02-25 06:37 | disposition home or self-care (01) ==
LOC: ER 04:54
PROC: 0H98XZZ Drainage of Buttock Skin, External Approach (ICD-10-PCS; principal; 2017-02-25)
DX: L02.31 Cutaneous abscess of buttock (principal); G89.29 Other chronic pain; I10 Essential (primary) hypertension; Z86.14 Personal history of Methicillin resistant Staphylococcus aureus infection
CPT/HCPCS: 99283; 10060; A9270

== ENCOUNTER 2017-03-15 15:45 | Emergency (ER) | payer MEDICARE, OTHER ==
[2017-03-15 15:52] VITALS: BP 173/113
[2017-03-15] MEDS ORDERED: BUPIVACAINE HCL 0.75% INJ/PF (7.5 MG/1 ML) 10 ML SDV INJ ONE (16:53)
--- NOTE | 2017-03-15 17:05 | ER Document Report ---
ED General - General Chief Complaint: Back Pain Stated Complaint: LEG/HIP PAIN Time Seen by Provider: 03/15/17 16:49 Mode of Arrival: Ambulatory Information source: Patient TRAVEL OUTSIDE OF THE [place] IN LAST 30 DAYS: No - HPI Notes: Patient presents with acute on chronic sciatica complains of paraspinal right- sided lumbar pain that radiates down her leg. She states she has experienced these in the past was unable to go to her pain management doctor earlier today. Denies any bowel or bladder incontinence or weakness of her lower extremities. Patient is able to ambulate. No burning with urination. No recent illnesses cough congestion chest pain abdominal pain or shortness of breath - Related Data Allergies/Adverse Reactions: hydrocodone [Hydrocodone] Allergy (Severe, Verified 03/15/17 15:48) sertraline HCl [From Zoloft] Allergy (Severe, Verified 03/15/17 15:48) hives, resp arrest propranolol HCl [From Inderal] Allergy (Intermediate, Verified 03/15/17 15:48) Hives ketorolac [From Toradol] Allergy (Verified 03/15/17 16:32) lamotrigine [From Lamictal] Allergy (Verified 03/15/17 15:48) ondansetron Allergy (Verified 03/15/17 15:48) propranolol Allergy (Verified 03/15/17 15:48) Past Medical History - Social History Smoking Status: Unknown if Ever Smoked Chew tobacco use (# tins/day): No Frequency of alcohol use: None Drug Abuse: None Family History: Arthritis, CVA, Hyperlipidemia, Hypertension, Malignancy, Thyroid Disfunction Patient has suicidal ideation: No Patient has homicidal ideation: No - Past Medical History Cardiac Medical History: Reports: Hx Hypercholesterolemia, Hx Hypertension Pulmonary Medical History: Reports: Hx Asthma Neurological Medical History: Reports: Hx Cerebrovascular Accident, Hx Migraine Endocrine Medical History: Reports: Hx Diabetes Mellitus Type 2 - borderline diet controlled, Hx Hypothyroidism Renal/ Medical History: Reports: Hx Kidney Stones, Hx Ovarian Cysts. Denies: Hx Peritoneal Dialysis GI Medical History: Reports: Hx Gastroesophageal Reflux Disease, Hx Irritable Bowel Musculoskeltal Medical History: Reports Hx Arthritis, Reports Hx Musculoskeletal Deformity, Reports Hx Musculoskeletal Trauma Psychiatric Medical History: Reports: Hx Bipolar Disorder, Hx Depression, Hx Schizophrenia Past Surgical History: Reports: Hx Appendectomy - Ex Lap, Hx Section, Hx Gynecologic Surgery - hyst, Hx Hysterectomy, Hx Thyroid Surgery, Hx Tonsillectomy - Immunizations Immunizations up to date: Yes Hx Diphtheria, Pertussis, Tetanus Vaccination: Yes Hx Pneumococcal Vaccination: 12/15/15 Review of Systems - Review of Systems Constitutional: No symptoms reported EENT: No symptoms reported Cardiovascular: No symptoms reported Respiratory: No symptoms reported Gastrointestinal: No symptoms reported Genitourinary: No symptoms reported Musculoskeletal: Other - Lower back pain paraspinal lumbar area Neurological/Psychological: Other - Tingling down right leg Physical Exam - Vital signs Vitals: Temp Pulse Resp BP Pulse Ox 98.1 F 87 16 173/113 H 98 03/15/17 15:52 03/15/17 15:52 03/15/17 15:52 03/15/17 15:52 03/15/17 15:52 - HEENT Head: Normocephalic, Atraumatic - Respiratory Respiratory status: No respiratory distress Chest status: Nontender - Cardiovascular Heart sounds: Normal auscultation - Abdominal Distension: No distension Bowel sounds: Normal - Back Back: Other - Point tenderness to palpation with no induration or erythema paraspinal lumbar region on the right - Neurological Cerebellar coordination: Other - Normal gait steady Course - Re-evaluation Re-evalutation: 03/15/17 17:10 I did discuss infection risks with patient to prodcedure, she verbalized understanding and to proceed with procedure 03/15/17 17:25 Patient states the pain was 10 is a 5 now smiling well-appearing in no acute distress will be discharged at this time with return precautions provided - Vital Signs Vital signs: Temp Pulse Resp BP Pulse Ox 98.1 F 87 16 173/113 H 98 03/15/17 15:52 03/15/17 15:52 03/15/17 15:52 03/15/17 15:52 03/15/17 15:52 Procedures - Additional Procedures IV insertion Additional Procedures: Other - 10 cc of 0.25 bupivacaine inserted into point tenderness paraspinal lumbar region to the right Discharge - Discharge Clinical Impression: Back pain Condition: Good Disposition: ADMITTED INPATIENT Instructions: Pain Medication Injection ([facility]) Prescriptions: Diazepam [Valium 5 mg Tablet] 5 mg PO QIDP PRN #15 tablet PRN Reason:
== END 2017-03-15 17:40 | disposition home or self-care (01) ==
LOC: ER 15:45
DX: M54.9 Dorsalgia, unspecified (principal); G89.29 Other chronic pain; E78.00 Pure hypercholesterolemia, unspecified; I10 Essential (primary) hypertension; E11.9 Type 2 diabetes mellitus without complications; E03.9 Hypothyroidism, unspecified; Z88.6 Allergy status to analgesic agent; Z86.73 Personal history of transient ischemic attack (TIA), and cerebral infarction without residual deficits; Z87.442 Personal history of urinary calculi; Z90.710 Acquired absence of both cervix and uterus
CPT/HCPCS: 99283; J3490

== ENCOUNTER 2017-03-22 18:00 | Emergency (ER) | payer MEDICARE, OTHER ==
[2017-03-22 18:20] VITALS: BP 178/98
[2017-03-22] MEDS ORDERED: FAMOTIDINE 20 MG TABLET PO ONE (18:59)
[2017-03-22] MEDS ORDERED: METHYLPREDNISOLONE INJ 125 MG/2 ML SDV IM ONE (18:59)
[2017-03-22] MEDS ORDERED: DIPHENHYDRAMINE HCL 50 MG CAPSULE PO ONE (18:59)
--- NOTE | 2017-03-22 19:04 | ER Document Report ---
HPI - HPI Pain Level: 1 Notes: Patient is a 61-year-old female with a history of hypertension, chronic back pain, sciatica who presents the ED complaining of a rash to her face and neck 1 day. Patient states that she did have hives to her shoulder as well after using cleaning chemicals in her bathroom yesterday, but taking Benadryl did help resolve those. Patient states that she does continue to have a rash to her face when she has been applying Benadryl cream with minimal relief. Patient states that she does have itching associated with the rash. She has not noticed any swelling to her lips, tongue, throat, nor any drooling or hoarseness or wheezing. Patient states that her sciatica has been acting up over the last couple days as well, but is not debilitating. Denies any headache , fever, neck pain, changes in mentation/vision/speech, URI, sore throat, chest pain, palpitations, syncope, cough, shortness of breath, wheeze, dyspnea, abdominal pain, nausea/vomiting/diarrhea, urinary retention, dysuria, hematuria , loss of control of bowel or bladder, numbness/tingling, muscle paralysis/ weakness, or rash. - ROS Notes: REVIEW OF SYSTEMS: CONSTITUTIONAL : Denies fever, chills, or sweats. Denies recent illness. EENT: Denies eye, ear, throat, or mouth pain or symptoms. Denies nasal or sinus congestion or discharge. Denies throat, tongue, or mouth swelling or difficulty swallowing. CARDIOVASCULAR: Denies chest pain. Denies palpitations or racing or irregular heart beat. Denies ankle edema. RESPIRATORY: Denies cough, cold, or chest congestion. Denies shortness of breath, difficulty breathing, or wheezing. GASTROINTESTINAL: Denies abdominal pain or distention. Denies nausea, vomiting , or diarrhea. Denies blood in vomitus, stools, or per rectum. Denies black, tarry stools. Denies constipation. GENITOURINARY: Denies difficulty urinating, painful urination, burning, frequency, blood in urine, or discharge. MUSCULOSKELETAL: Denies back or neck pain or stiffness. Denies joint pain or swelling. SKIN: see hpi NEUROLOGICAL: Denies confusion or altered mental status. Denies passing out or loss of consciousness. Denies dizziness or lightheadedness. Denies headache. Denies weakness or paralysis or loss of use of either side. Denies problems with gait or speech. Denies sensory loss, numbness, or tingling. Denies seizures. PSYCHIATRIC: Denies anxiety or stress. Denies depression, suicidal ideation, or homicidal ideation. ALL OTHER SYSTEMS REVIEWED AND NEGATIVE. Dictation was performed using [employer] voice recognition software - REPRODUCTIVE Reproductive: DENIES: : Past Medical History - Social History Smoking Status: Never Smoker Chew tobacco use (# tins/day): No Frequency of alcohol use: None Drug Abuse: None Family History: Arthritis, CVA, Hyperlipidemia, Hypertension, Malignancy, Thyroid Disfunction Patient has suicidal ideation: No Patient has homicidal ideation: No - Past Medical History Cardiac Medical History: Reports: Hx Hypercholesterolemia, Hx Hypertension Pulmonary Medical History: Reports: Hx Asthma Neurological Medical History: Reports: Hx Cerebrovascular Accident, Hx Migraine Endocrine Medical History: Reports: Hx Diabetes Mellitus Type 2 - borderline diet controlled, Hx Hypothyroidism Renal/ Medical History: Reports: Hx Kidney Stones, Hx Ovarian Cysts. Denies: Hx Peritoneal Dialysis GI Medical History: Reports: Hx Gastroesophageal Reflux Disease, Hx Irritable Bowel Musculoskeltal Medical History: Reports Hx Arthritis, Reports Hx Musculoskeletal Deformity, Reports Hx Musculoskeletal Trauma Psychiatric Medical History: Reports: Hx Bipolar Disorder, Hx Depression, Hx Schizophrenia Past Surgical History: Reports: Hx Appendectomy - Ex Lap, Hx Section, Hx Gynecologic Surgery - hyst, Hx Hysterectomy, Hx Thyroid Surgery, Hx Tonsillectomy - Immunizations Immunizations up to date: Yes Hx Diphtheria, Pertussis, Tetanus Vaccination: Yes Hx Pneumococcal Vaccination: 12/15/15 Vertical Provider Document - CONSTITUTIONAL Agree With Documented VS: Yes Notes: PHYSICAL EXAMINATION: GENERAL: Well-appearing, well-nourished and in no acute distress. A&Ox4 HEAD: Atraumatic, normocephalic. EYES: Pupils equal round and reactive to light, extraocular movements intact, sclera anicteric, conjunctiva are normal. ENT: EAC clear b/l. TM's intact b/l without erythema, fluid, or perforation. Nares patent and without discharge. oropharynx clear without exudates. No tonsilar hypertrophy or erythema. Moist mucous membranes. No sinus tenderness. No angioedema noted to the mouth, lips, tongue, or throat. No drooling or hoarseness. No airway compromise. NECK: Normal range of motion, supple without lymphadenopathy. No rigidity/ meningismus. LUNGS: Breath sounds clear to auscultation bilaterally and equal. No wheezes rales or rhonchi. HEART: Regular rate and rhythm without murmurs, rubs, gallops. ABDOMEN: Soft, nontender, nondistended abdomen. No guarding, no rebound. No masses appreciated. Normal bowel sounds present. No CVA tenderness bilaterally. No pulsatile mass. Musculoskeletal: FROM to passive/active. Strength 5+/5. Back: FROM to passive/active. Strength 5+/5. SLR neg b/l. No vertebral point tenderness or step-offs. No SI jt tenderness. Extremities: No cyanosis, clubbing, or edema b/l. Peripheral pulses 2+. Capillary refill less than 3 seconds. NEUROLOGICAL: MMSE intact. Cranial nerves grossly intact. Normal speech, normal gait. Normal sensory, motor exams PSYCH: Normal mood, normal affect. SKIN: Warm, Dry, normal turgor, no rashes or lesions noted. - INFECTION CONTROL TRAVEL OUTSIDE OF THE [place] IN LAST 30 DAYS: No - RESPIRATORY O2 Sat by Pulse Oximetry: 95 Course - Re-evaluation Re-evalutation: 03/22/17 19:03 Patient is an afebrile, well-hydrated, 61-year-old female who presents the ED with a rash to her face and neck, suspect hives/allergen. Patient also presents with ongoing chronic sciatica. Vitals are stable. PE is otherwise unremarkable for any focal neurological deficits. Low suspicion for any sepsis , airway/respiratory compromise, angioedema, meningitis, fracture, expanding/ ruptured AAA, cauda equina syndrome, epidural mass lesion/abscess, herniated disc causing severe spinal stenosis, or other systemic infection at this time. Patient is aware that her condition can change from initial presentation and that she needs monitor symptoms closely for any acute changes. Patient was given Solu-Medrol, Benadryl, and Pepcid today. I will send her home with a prescription for a steroid taper dose. Conservative measures for symptoms otherwise. Recheck with your PCM in 3-5 days. Return to the ED with any worsening/concerning symptoms otherwise as reviewed in discharge. Patient is in agreement. - Vital Signs Vital signs: Temp Pulse Resp BP Pulse Ox 99.1 F 97 20 178/98 H 95 03/22/17 18:19 03/22/17 18:19 03/22/17 18:19 03/22/17 18:19 03/22/17 18:19 Discharge - Discharge Clinical Impression: Rash Condition: Stable Disposition: HOME, SELF-CARE Instructions: Acute Allergic Reaction ([facility]) Additional Instructions: Keep the skin clean Wash with soap and water Tylenol/ibuprofen if needed Take medication as directed Monitor for any worsening symptoms Maintain fluid intake Monitor blood pressure closely Recheck with your PCM in 3-5 days Consider consult with an Layout Former/stock turner for ongoing/worsening symptoms Return to the ED with any worsening symptoms and/or development of fever, headache, changes in behavior/mentation/speech/vision, drooling, hoarseness, swelling of the lips/tongue/throat/mouth, trouble swallowing/breathing, chest pain, palpitations, syncope, shortness of breath, abdominal pain, n/v/d, abscess , purulent discharge, red streaks, worsening swelling, or other worsening symptoms that are concerning to you. Prescriptions: Prednisone [Deltasone 10 mg Tablet] 10 mg PO ASDIR PRN #21 tablet PRN Reason: Forms: Elevated Blood Pressure Referrals: FREDDY DALTON DO [ACTIVE STAFF] - Follow up as needed
== END 2017-03-22 19:29 | disposition home or self-care (01) ==
LOC: ER 18:00
DX: R21 Rash and other nonspecific skin eruption (principal); M54.30 Sciatica, unspecified side; I10 Essential (primary) hypertension; G89.29 Other chronic pain
CPT/HCPCS: 99282; A9270 ×2; J2930

== ENCOUNTER 2017-03-24 05:49 | Emergency (ER) | payer MEDICARE, MEDICAID ==
[2017-03-24] MEDS ORDERED: METHYLPREDNISOLONE ACETATE INJ 80 MG/1 ML VIAL IM PRN (06:57)
--- NOTE | 2017-03-24 07:03 | ER Document Report ---
ED Neck/Back Problem - General Chief Complaint: Back Pain Stated Complaint: BACK PAIN Time Seen by Provider: 03/24/17 06:24 Notes: 61 years old female with a history of lumbar radiculopathy, get trigger point injections and through pain clinic, presents today with increased pain over the right sacroiliac joint radiating down the thigh. She was given a trigger point injection 4 weeks ago which helped. Denies any weakness over the lower extremity denies any numbness tingling sensation. Denies any other constitutional symptoms TRAVEL OUTSIDE OF THE [place] IN LAST 30 DAYS: No - Related Data Allergies/Adverse Reactions: hydrocodone [Hydrocodone] Allergy (Severe, Verified 03/24/17 05:50) sertraline HCl [From Zoloft] Allergy (Severe, Verified 03/24/17 05:50) hives, resp arrest propranolol HCl [From Inderal] Allergy (Intermediate, Verified 03/24/17 05:50) Hives ketorolac [From Toradol] Allergy (Verified 03/24/17 05:50) lamotrigine [From Lamictal] Allergy (Verified 03/24/17 05:50) ondansetron Allergy (Verified 03/24/17 05:50) propranolol Allergy (Verified 03/24/17 05:50) Past Medical History - Social History Smoking Status: Never Smoker Frequency of alcohol use: Occasional Family History: Arthritis, CVA, Hyperlipidemia, Hypertension, Malignancy, Thyroid Disfunction Patient has suicidal ideation: No Patient has homicidal ideation: No - Past Medical History Cardiac Medical History: Reports: Hx Hypercholesterolemia, Hx Hypertension Pulmonary Medical History: Reports: Hx Asthma Neurological Medical History: Reports: Hx Cerebrovascular Accident, Hx Migraine Endocrine Medical History: Reports: Hx Diabetes Mellitus Type 2 - borderline diet controlled, Hx Hypothyroidism Renal/ Medical History: Reports: Hx Kidney Stones, Hx Ovarian Cysts. Denies: Hx Peritoneal Dialysis GI Medical History: Reports: Hx Gastroesophageal Reflux Disease, Hx Irritable Bowel Musculoskeltal Medical History: Reports Hx Arthritis, Reports Hx Musculoskeletal Deformity, Reports Hx Musculoskeletal Trauma Psychiatric Medical History: Reports: Hx Bipolar Disorder, Hx Depression, Hx Schizophrenia Past Surgical History: Reports: Hx Appendectomy - Ex Lap, Hx Section, Hx Gynecologic Surgery - hyst, Hx Hysterectomy, Hx Thyroid Surgery, Hx Tonsillectomy - Immunizations Immunizations up to date: Yes Hx Diphtheria, Pertussis, Tetanus Vaccination: Yes Hx Pneumococcal Vaccination: 12/15/15 Review of Systems - Review of Systems Notes: REVIEW OF SYSTEMS: CONSTITUTIONAL : Denies fever, chills, or sweats. Denies recent illness. EENT: Denies eye, ear, throat, or mouth pain or symptoms. Denies nasal or sinus congestion or discharge. Denies throat, tongue, or mouth swelling or difficulty swallowing. CARDIOVASCULAR: Denies chest pain. Denies palpitations or racing or irregular heart beat. Denies ankle edema. RESPIRATORY: Denies cough, cold, or chest congestion. Denies shortness of breath, difficulty breathing, or wheezing. GASTROINTESTINAL: Denies abdominal pain or distention. Denies nausea, vomiting , or diarrhea. Denies blood in vomitus, stools, or per rectum. Denies black, tarry stools. Denies constipation. GENITOURINARY: Denies difficulty urinating, painful urination, burning, frequency, blood in urine, or discharge. FEMALE GENITOURINARY: Denies vaginal bleeding, heavy or abnormal periods, irregular periods. Denies vaginal discharge or odor. MUSCULOSKELETAL: As per history of complain HEMATOLOGIC : Denies easy bruising or bleeding. LYMPHATIC: Denies swollen, enlarged glands. NEUROLOGICAL: Denies confusion or altered mental status. Denies passing out or loss of consciousness. Denies dizziness or lightheadedness. Denies headache. Denies weakness or paralysis or loss of use of either side. Denies problems with gait or speech. Denies sensory loss, numbness, or tingling. Denies seizures. PSYCHIATRIC: Denies anxiety or stress. Denies depression, suicidal ideation, or homicidal ideation. ALL OTHER SYSTEMS REVIEWED AND NEGATIVE. PHYSICAL EXAMINATION: GENERAL: Well-appearing, well-nourished and in moderate distress. HEAD: Atraumatic, normocephalic. EYES: Pupils equal round and reactive to light, extraocular movements intact, conjunctiva are normal. ENT: Nares patent, oropharynx clear without exudates. Moist mucous membranes. NECK: Normal range of motion, supple without lymphadenopathy LUNGS: Breath sounds clear to auscultation bilaterally and equal. No wheezes rales or rhonchi. HEART: Regular rate and rhythm without murmurs ABDOMEN: Soft, nontender, nondistended abdomen. No guarding, no rebound. No masses appreciated. Female : deferred Musculoskeletal: Right sacroiliac joint region is extremely tender on palpation. Neurovascular function distally within normal limit. No weakness of the lower extremity noted. NEUROLOGICAL: Cranial nerves grossly intact. Normal speech, normal gait. Normal sensory, motor exams PSYCH: Normal mood, normal affect. SKIN: Warm, Dry, normal turgor, no rashes or lesions noted. Dictation was performed using [employer] voice recognition software Physical Exam - Vital signs Vitals: Temp Pulse Resp BP Pulse Ox 99.5 F 95 20 154/94 H 96 03/24/17 06:03 03/24/17 06:03 03/24/17 06:03 03/24/17 06:03 03/24/17 06:03 Course - Vital Signs Vital signs: Temp Pulse Resp BP Pulse Ox 99.5 F 95 20 154/94 H 96 03/24/17 06:03 03/24/17 06:03 03/24/17 06:03 03/24/17 06:03 03/24/17 06:03 Procedures - Joint Aspiration Left Hip Joint aspiration pre-procedure: Chloraprep applied Anesthetic type: Other - Depo-Medrol 80 mg, bupivacaine 10 cc Needle size: 25 Number of attempts: 1 Complications: No Notes: Right sacroiliac joint was injected with 80 mg of Depo-Medrol Marcaine 10 cc into the joint without any complications. Postinjection pain was relieved patient was able to walk without any assistance as well as walking stick. Discharge - Discharge Clinical Impression: Sacroiliitis Lower back pain Qualifiers: Chronicity: acute Back pain laterality: right Sciatica presence: without sciatica Qualified Code(s): M54.5 - Low back pain Condition: Good Disposition: HOME, SELF-CARE Instructions: Low Back Pain ([facility]), Pain Medication Injection ([facility]) Prescriptions: Diazepam [Valium 2 mg Tablet] 2 mg PO BID #20 tablet Referrals: YEE LEONARD PA-C [Primary Care Provider] - Follow up as needed
[2017-03-24] MEDS ORDERED: BUPIVACAINE INJ/PF LIPOSOME/PF 266 MG/20 ML SDV ONE (07:19)
[2017-03-24 09:32] VITALS: BP 159/100
[2017-03-24] MEDS ORDERED: BUPIVACAINE INJ/PF LIPOSOME/PF 266 MG/20 ML SDV INJ SCH (10:00)
== END 2017-03-24 08:15 | disposition home or self-care (01) ==
LOC: ER 05:49
DX: M53.3 Sacrococcygeal disorders, not elsewhere classified (principal); M54.5 Low back pain; I10 Essential (primary) hypertension; J45.909 Unspecified asthma, uncomplicated; E11.9 Type 2 diabetes mellitus without complications; Z88.5 Allergy status to narcotic agent; Z88.8 Allergy status to other drugs, medicaments and biological substances
CPT/HCPCS: 99283; 20552; J1040; C9290

== ENCOUNTER 2017-04-07 07:14 | Emergency (ER) | payer MEDICARE, OTHER ==
--- NOTE | 2017-04-07 09:02 | ER Document Report ---
HPI - HPI Patient complains to provider of: exacerbation chroinic right SI joint pain Onset: Yesterday Onset/Duration: Worse Pain Level: 5 Context: 61 yo female with chronic right SI joint pain, Nucenta 200mg nightly and Endocet 10mg tid and valium was given SI joint injection 2 weeks ago in this ED which helped a lot and wants another one. No fever. No change of laction of the pain or new symtpoms. Associated Symptoms: None Exacerbated by: Other - sleeping on right hip Relieved by: Denies Similar symptoms previously: Yes Recently seen / treated by doctor: Yes - ROS ROS below otherwise negative: Yes Systems Reviewed and Negative: Yes All other systems reviewed and negative - REPRODUCTIVE Reproductive: DENIES: : Past Medical History - General Information source: Patient - Social History Smoking Status: Current Every Day Smoker Frequency of alcohol use: None Drug Abuse: None Lives with: Spouse/Significant other Family History: Arthritis, CVA, Hyperlipidemia, Hypertension, Malignancy, Thyroid Disfunction - Past Medical History Cardiac Medical History: Reports: Hx Hypercholesterolemia, Hx Hypertension Pulmonary Medical History: Reports: Hx Asthma Neurological Medical History: Reports: Hx Cerebrovascular Accident, Hx Migraine Endocrine Medical History: Reports: Hx Diabetes Mellitus Type 2 - borderline diet controlled, Hx Hypothyroidism Renal/ Medical History: Reports: Hx Kidney Stones, Hx Ovarian Cysts GI Medical History: Reports: Hx Gastroesophageal Reflux Disease, Hx Irritable Bowel Musculoskeltal Medical History: Reports Hx Arthritis, Reports Hx Musculoskeletal Deformity, Reports Hx Musculoskeletal Trauma Psychiatric Medical History: Reports: Hx Bipolar Disorder, Hx Depression, Hx Schizophrenia Past Surgical History: Reports: Hx Appendectomy - Ex Lap, Hx Section, Hx Gynecologic Surgery - hyst, Hx Hysterectomy, Hx Thyroid Surgery, Hx Tonsillectomy - Immunizations Immunizations up to date: Yes Hx Diphtheria, Pertussis, Tetanus Vaccination: Yes Hx Pneumococcal Vaccination: 12/15/15 Vertical Provider Document - CONSTITUTIONAL Agree With Documented VS: Yes Exam Limitations: No Limitations General Appearance: Mild Distress - INFECTION CONTROL TRAVEL OUTSIDE OF THE [place] IN LAST 30 DAYS: No - HEENT HEENT: Normocephalic - NECK Neck: Supple - RESPIRATORY Respiratory: Breath Sounds Normal, No Respiratory Distress O2 Sat by Pulse Oximetry: 100 - CARDIOVASCULAR Cardiovascular: Regular Rate, Regular Rhythm - BACK Back: Normal Inspection - tender right SI join, no rash - MUSCULOSKELETAL/EXTREMETIES Musculoskeletal/Extremeties: LALITO ARORA - NEURO Level of Consciousness: Awake, Alert Motor/Sensory: No Motor Deficit, No Sensory Deficit - DERM Integumentary: No Rash Course - Re-evaluation Re-evalutation: 04/07/17 pain to 0/5 with traction of right leg, flexion knee external rotation of the hip, rolled towel under SI joint. - Vital Signs Vital signs: Temp Pulse Resp BP Pulse Ox 98.8 F 101 H 22 H 156/99 H 100 04/07/17 07:21 04/07/17 07:21 04/07/17 07:21 04/07/17 07:21 04/07/17 07:21 Discharge - Discharge Clinical Impression: Chronic SI joint pain Condition: Good Disposition: HOME, SELF-CARE Instructions: Topical Lidocaine ([facility]) Additional Instructions: see your doctor for follow up it is too early for another sacroiliac joint injection heat to sore area take your opiate medications as prescribed Prescriptions: Lidocaine [Lidoderm 5% (700 mg) Transdermal Patch] 1 patch TP DAILY #30 adh..patch Referrals: YEE LEONARD PA-C [Primary Care Provider] - Follow up as needed
[2017-04-07 09:40] VITALS: BP 187/112
== END 2017-04-07 09:40 | disposition home or self-care (01) ==
LOC: ER 07:14
DX: M53.3 Sacrococcygeal disorders, not elsewhere classified (principal); G89.29 Other chronic pain; Z79.899 Other long term (current) drug therapy; F17.200 Nicotine dependence, unspecified, uncomplicated; E11.9 Type 2 diabetes mellitus without complications
CPT/HCPCS: 99283

== ENCOUNTER 2017-04-27 01:26 | Emergency (ER) | payer MEDICARE, OTHER ==
[2017-04-27 02:00] VITALS: BP 151/104
--- NOTE | 2017-04-27 02:40 | ER Document Report ---
HPI - HPI Pain Level: 5 Notes: Patient is a 61-year-old female with a history of chronic right sciatica who presents the ED complaining of an acute exacerbation of her sciatica 1 day. Patient states that she has been taking her medications as prescribed by the pain clinic including narcotics regularly with minimal relief. Patient states that the pain is normal for her in her right buttock that travels down her right leg and she has not noticed any changes from baseline otherwise. Patient is still eating and drinking without any difficulties. She is urinating normally and having normal bowel movements. Patient denies any diabetes, recent injections into her back, IV drug use. Patient denies any recent illness. Denies any headache, fever, URI, sore throat, chest pain, palpitations , syncope, cough, shortness of breath, wheeze, dyspnea, abdominal pain, nausea/ vomiting/diarrhea, urinary retention, dysuria, hematuria, loss of control of bowel or bladder, numbness/tingling, saddle anesthesia, muscle paralysis/ weakness, or rash. - ROS Notes: REVIEW OF SYSTEMS: CONSTITUTIONAL : Denies fever, chills, or sweats. Denies recent illness. EENT: Denies eye, ear, throat, or mouth pain or symptoms. Denies nasal or sinus congestion or discharge. Denies throat, tongue, or mouth swelling or difficulty swallowing. CARDIOVASCULAR: Denies chest pain. Denies palpitations or racing or irregular heart beat. Denies ankle edema. RESPIRATORY: Denies cough, cold, or chest congestion. Denies shortness of breath, difficulty breathing, or wheezing. GASTROINTESTINAL: Denies abdominal pain or distention. Denies nausea, vomiting , or diarrhea. Denies blood in vomitus, stools, or per rectum. Denies black, tarry stools. Denies constipation. GENITOURINARY: Denies difficulty urinating, painful urination, burning, frequency, blood in urine, or discharge. MUSCULOSKELETAL: see hpi SKIN: Denies rash, lesions or sores. NEUROLOGICAL: Denies confusion or altered mental status. Denies passing out or loss of consciousness. Denies dizziness or lightheadedness. Denies headache. Denies weakness or paralysis or loss of use of either side. Denies problems with gait or speech. Denies sensory loss, numbness, or tingling. Denies seizures. ALL OTHER SYSTEMS REVIEWED AND NEGATIVE. Dictation was performed using Dragon voice recognition software - REPRODUCTIVE Reproductive: DENIES: : Past Medical History - Social History Smoking Status: Never Smoker Family History: Arthritis, CVA, Hyperlipidemia, Hypertension, Malignancy, Thyroid Disfunction - Past Medical History Cardiac Medical History: Reports: Hx Hypercholesterolemia, Hx Hypertension Pulmonary Medical History: Reports: Hx Asthma Neurological Medical History: Reports: Hx Cerebrovascular Accident, Hx Migraine Endocrine Medical History: Reports: Hx Diabetes Mellitus Type 2 - borderline diet controlled, Hx Hypothyroidism Renal/ Medical History: Reports: Hx Kidney Stones, Hx Ovarian Cysts. Denies: Hx Peritoneal Dialysis GI Medical History: Reports: Hx Gastroesophageal Reflux Disease, Hx Irritable Bowel Musculoskeltal Medical History: Reports Hx Arthritis, Reports Hx Musculoskeletal Deformity, Reports Hx Musculoskeletal Trauma Psychiatric Medical History: Reports: Hx Bipolar Disorder, Hx Depression, Hx Schizophrenia Past Surgical History: Reports: Hx Appendectomy - Ex Lap, Hx Section, Hx Gynecologic Surgery - hyst, Hx Hysterectomy, Hx Thyroid Surgery, Hx Tonsillectomy - Immunizations Immunizations up to date: Yes Hx Diphtheria, Pertussis, Tetanus Vaccination: Yes Hx Pneumococcal Vaccination: 12/15/15 Vertical Provider Document - CONSTITUTIONAL Agree With Documented VS: Yes Notes: PHYSICAL EXAMINATION: GENERAL: Well-appearing, well-nourished and in no acute distress. A&Ox4 LUNGS: Breath sounds clear to auscultation bilaterally and equal. No wheezes rales or rhonchi. HEART: Regular rate and rhythm without murmurs, rubs, gallops. ABDOMEN: Soft, nontender, nondistended abdomen. No guarding, no rebound. No masses appreciated. Normal bowel sounds present. No CVA tenderness bilaterally. No seatbelt sign. Musculoskeletal: Ext b/l: FROM to passive/active. Strength 5+/5. No deficits noted. No bony tenderness of extremities. Back: FROM to passive/active. Strength 5+/5. No vertebral point tenderness, stepoffs, or deformities. No other bony tenderness or ecchymosis. SLR negative b/l. + mild tenderness to the rt SI jt. Extremities: No cyanosis, clubbing, or edema b/l. Peripheral pulses 2+. Capillary refill less than 2 seconds. NEUROLOGICAL: Normal speech, normal gait. Normal sensory, motor exams. Reflexes 2+ b/l. LIZETH's negative. PSYCH: Normal mood, normal affect. SKIN: Warm, Dry, normal turgor, no rashes or lesions noted. - INFECTION CONTROL TRAVEL OUTSIDE OF THE [place] IN LAST 30 DAYS: No - RESPIRATORY O2 Sat by Pulse Oximetry: 96 Course - Re-evaluation Re-evalutation: 04/27/17 02:45 Patient is an afebrile, well-hydrated, 61-year-old female who presents to the ED with acute exacerbation of her right sciatica and sacroiliitis. Vitals are stable. PE is otherwise unremarkable for any focal neurological deficits. No labs or imaging warranted at this time based on H&P. Low suspicion for any meningitis, fracture, expanding/ruptured AAA, cauda equina syndrome, epidural mass lesion/abscess, herniated disc causing severe spinal stenosis, or other systemic infection at this time. Patient is aware that her condition can change from initial presentation and that she needs monitor symptoms closely for any acute changes. Decadron given IM today. Recommend conservative measures for symptoms. Patient is already taking narcotics at home. Recheck with your PCM in 3-5 days. Return to the ED with any worsening/concerning symptoms otherwise as reviewed in discharge. Patient is in agreement. - Vital Signs Vital signs: Temp Pulse Resp BP Pulse Ox 98.3 F 89 20 151/104 H 96 04/27/17 01:59 04/27/17 01:59 04/27/17 01:59 04/27/17 01:59 04/27/17 01:59 Discharge - Discharge Clinical Impression: Right sided sciatica Condition: Stable Disposition: HOME, SELF-CARE Instructions: Sciatica ([facility]) Additional Instructions: Rest, Ice Tylenol/ibuprofen as needed Light stretches daily Strength exercises as able Moist heat and massage may help F/u with your PCP in 3-5 days for a recheck Consider consult(s) with Orthopedics/physical therapy for ongoing/worsening symptoms Return to the ED with any worsening symptoms and/or development of fever, headache, chest pain, palpitations, syncope, shortness of breath, trouble breathing, abdominal pain, n/v/d, blood in stool/urine, loss of control of bowel /bladder, urinary retention, muscle weakness/paralysis, saddle anesthesia, numbness/tingling, or other worsening symptoms that are concerning to you. Forms: Elevated Blood Pressure Referrals: [facility] [Provider Group] - Follow up as needed
[2017-04-27] MEDS ORDERED: DEXAMETHASONE SOD PHOS INJ 10 MG/1 ML VIAL IM ONE (02:45)
== END 2017-04-27 02:45 | disposition home or self-care (01) ==
LOC: ER 01:26
DX: M54.31 Sciatica, right side (principal); M46.1 Sacroiliitis, not elsewhere classified; G89.29 Other chronic pain; Z79.891 Long term (current) use of opiate analgesic; I10 Essential (primary) hypertension; J45.909 Unspecified asthma, uncomplicated
CPT/HCPCS: 99283; 96372; J1100

== ENCOUNTER 2017-04-27 10:02 | Emergency (ER) | payer MEDICARE, OTHER ==
[2017-04-27] MEDS ORDERED: KETOROLAC TROMETHAMINE 60 MG/2 ML SDV IM ONE (11:25)
--- NOTE | 2017-04-27 11:31 | ER Document Report ---
ED Neck/Back Problem - General Chief Complaint: Low Back Pain Stated Complaint: BACK PAIN Time Seen by Provider: 04/27/17 10:29 Mode of Arrival: Ambulatory Information source: Patient Notes: 61-year-old female presented ED for complaint of low back pain with sciatic pain. She states she was seen last night and discharged home after getting a Decadron shot but that they did not do it in the SI joint and this is the only place that it will help. She returned to get a shot in the SI joint. I discussed with patient that we do not do injections into SI joint and less 1 of the doctors is comfortable doing these injections and there is no went on at this time that does those injections. Patient very tearful and requesting a Toradol shot even though it is started that she is allergic to Toradol. She states she is allergic to p.o. Toradol but not IM Toradol and could she please get a Toradol shot. TRAVEL OUTSIDE OF THE [place] IN LAST 30 DAYS: No - HPI Patient complains to provider of: Lower back Onset: Other - Today with sciatic pain Onset: Chronic Timing: Still present Quality of pain: Sharp, Throbbing Severity: Severe Pain Level: 5 Recent injury: No Associated symptoms: Radiation to leg, Lower back pain Exacerbated by: Movement of trunk, Sitting position Relieved by: Nothing Similar symptoms previously: Yes Recently seen / treated by doctor: Yes - Related Data Allergies/Adverse Reactions: hydrocodone [Hydrocodone] Allergy (Severe, Verified 04/27/17 01:40) sertraline HCl [From Zoloft] Allergy (Severe, Verified 04/27/17 01:40) hives, resp arrest propranolol HCl [From Inderal] Allergy (Intermediate, Verified 04/27/17 01:40) Hives ketorolac [From Toradol] Allergy (Verified 04/27/17 01:40) lamotrigine [From Lamictal] Allergy (Verified 04/27/17 01:40) ondansetron Allergy (Verified 04/27/17 01:40) propranolol Allergy (Verified 04/27/17 01:40) Past Medical History - General Information source: Patient - Social History Smoking Status: Former Smoker Cigarette use (# per day): No Chew tobacco use (# tins/day): No Smoking Education Provided: No Frequency of alcohol use: None Drug Abuse: None Lives with: Alone Family History: Arthritis, CVA, Hyperlipidemia, Hypertension, Malignancy, Thyroid Disfunction Patient has suicidal ideation: No Patient has homicidal ideation: No - Past Medical History Cardiac Medical History: Reports: Hx Hypercholesterolemia, Hx Hypertension Pulmonary Medical History: Reports: Hx Asthma Neurological Medical History: Reports: Hx Cerebrovascular Accident, Hx Migraine Endocrine Medical History: Reports: Hx Diabetes Mellitus Type 2 - borderline diet controlled, Hx Hypothyroidism - Thyroid removed Renal/ Medical History: Reports: Hx Kidney Stones, Hx Ovarian Cysts Malignancy Medical History: Reports: Other - thyroid GI Medical History: Reports: Hx Gastroesophageal Reflux Disease, Hx Irritable Bowel Musculoskeltal Medical History: Reports Hx Arthritis, Reports Hx Musculoskeletal Deformity, Reports Hx Musculoskeletal Trauma Skin Medical History: Reports None Psychiatric Medical History: Reports: Hx Bipolar Disorder, Hx Depression, Hx Schizophrenia Traumatic Medical History: Reports: None Infectious Medical History: Reports: None Past Surgical History: Reports: Hx Abdominal Surgery - Ex Lap, Hx Section, Hx Hysterectomy, Hx Thyroid Surgery, Hx Tonsillectomy - Immunizations Immunizations up to date: Yes Hx Diphtheria, Pertussis, Tetanus Vaccination: Yes Hx Pneumococcal Vaccination: 12/15/15 Review of Systems - Review of Systems Constitutional: No symptoms reported EENT: No symptoms reported Cardiovascular: No symptoms reported Respiratory: No symptoms reported Gastrointestinal: No symptoms reported Genitourinary: No symptoms reported Female Genitourinary: No symptoms reported Musculoskeletal: Back pain, Muscle pain, Muscle stiffness Skin: No symptoms reported Hematologic/Lymphatic: No symptoms reported Neurological/Psychological: No symptoms reported -: Yes All other systems reviewed and negative Physical Exam - Vital signs Vitals: Temp Pulse Resp BP Pulse Ox 98.5 F 104 H 26 H 158/95 H 95 04/27/17 10:10 04/27/17 10:10 04/27/17 10:10 04/27/17 10:10 04/27/17 10:10 Interpretation: Normal - General General appearance: Appears well, Alert - HEENT Head: Normocephalic, Atraumatic Eyes: Normal Pupils: PERRL - Respiratory Respiratory status: No respiratory distress Chest status: Nontender Breath sounds: Normal Chest palpation: Normal - Cardiovascular Rhythm: Regular Heart sounds: Normal auscultation Murmur: No - Abdominal Inspection: Normal Distension: No distension Bowel sounds: Normal Tenderness: Nontender Organomegaly: No organomegaly - Back Back: Normal, Tender, Vertebra tenderness - right radiated to buttock and leg. No: Deformity/step-off, CVA tenderness, Scars, Scoliosis - Extremities General upper extremity: Normal inspection, Nontender, Normal color, Normal ROM , Normal temperature General lower extremity: Normal inspection, Nontender, Normal color, Normal ROM , Normal temperature, Normal weight bearing. No: Juliana's sign - Neurological Neuro grossly intact: Yes Cognition: Normal Orientation: AAOx4 Vicky Coma Scale Eye Opening: Spontaneous Vicky Coma Scale Verbal: Oriented Vicky Coma Scale Motor: Obeys Commands [place] Coma Scale Total: 15 Speech: Normal Motor strength normal: LUE, RUE, LLE, RLE Sensory: Normal - Psychological Associated symptoms: Normal affect, Normal mood - Skin Skin Temperature: Warm Skin Moisture: Dry Skin Color: Normal Course - Re-evaluation Re-evalutation: 04/27/17 19:34 Patient treated with Toradol injection and Benadryl. Patient was held in the ED for 30 minutes after her injection to ensure no reactions. Patient did not have any rash or any respiratory difficulty. Patient was discharged home after her injections. - Vital Signs Vital signs: Temp Pulse Resp BP Pulse Ox 97.9 F 89 16 149/98 H 97 04/27/17 12:15 04/27/17 12:15 04/27/17 12:15 04/27/17 12:15 04/27/17 12:15 Discharge - Discharge Clinical Impression: Right sided sciatica Condition: Stable Disposition: HOME, SELF-CARE Additional Instructions: Chronic Back Pain Chronic back pain (pain persisting longer than three months) is a common problem. A medical evaluation can look for herniated disc, arthritis, osteoporosis, tumors, and infections. But at least half the time, there's no obvious treatable cause. Anxiety and depression tend to worsen back pain. Ibuprofen or other anti-inflammatory medicine can help. A heating pad, used for 15-20 minutes at a time, can ease pain. For this type of back pain, narcotic medicines should be avoided. Muscle relaxers are rarely helpful unless you're having spasms. Activity is important. Find an aerobic exercise program that your back can tolerate. Too much rest makes back pain worse. Specific back exercises are usually prescribed to strengthen the back and abdominal muscles. Often, a physical therapist can help. Avoid heavy lifting, working while bent over, or standing with both knees straight. Most back pain patients do better with a firm mattress. If new symptoms of a "herniated disc" (radiation of pain, numbness, or tingling down the back of the leg or weakness in the leg) occur, you should be re-examined. Chronic Pain Control Stress, inactivity, and depression make pain more severe regardless of the cause of the pain. Stress and poor physical condition can cause pain such as headaches and backache. Relaxation: Rest in a quiet place with your eyes closed for 20 minutes twice daily. Concentrate on a pleasant image, or simply "feel" your breathing. Clear your mind. Stress management: Deal with your "stressors." Either take action, or eliminate the stressor from your life. Don't let things hang over you. Accept those things you can't change. Nutrition: Eat small, balanced meals -- don't skip, don't overeat. Meals should be high-carbohydrate, low-sugar, low-fat. Exercise: Exercise helps painful conditions and eases stress. Get 30 minutes of moderate exercise, five days a week. Do an activity that does not flare your pain. Precautions: Pain which continues to disrupt daily activities, or which changes in nature, requires a medical evaluation. Pain Clinic referral is available. We do not manage chronic pain in the Emergency Department. We will try to appropriately help you through an acute flare of your chronic painful condition , but for on-going chronic pain that does not improve, you will need to see your private doctor or painting trades worker. We do not provide repeated medication management of chronic painful conditions. If you wish, we can provide the name of local pain management physicians. Toradol Injection You have been given an injection of ketorolac tromethamine (Toradol). This is an excellent, safe drug for pain control. It also has potent antiinflammatory action. You should have significant pain relief within about one hour. Toradol is not addicting and is non-sedating. It does not interfere with driving or work. Call or return if you develop itching, hives, shortness of breath, or rash. Diphenhydramine The use of diphenhydramine (Benadryl) has been recommended to control allergic symptoms. The 25 mg strength is available over- the-counter, as well as the elixir. This antihistamine is used for many symptoms. It's useful for itching, watering eyes and nose, allergic swelling, hives, and insect stings. The medication can be repeated four times daily. Age Elixir (12.5 mg/tsp) 25 mg pill 1 yr 1/4 tsp 2-3 yr 1/2 tsp 4-8 yr 1 tsp 9-14 yr 2 tsp one tab adult 1-2 tabs Antihistamines may cause drowsiness, especially with the first dose. Do not operate machinery or drive while under the effects of the medication. Do not combine the medication with alcohol, or with any other medication without talking to your doctor. Stretching Exercises for the Back The physician has recommended that you begin stretching exercises for your back. These are often used even while the back is painful. However, you should notify the physician if the activities seem to increase your pain. PELVIC TILT: Lie flat on your back with knees bent. Tighten your stomach and buttock muscles so it flattens your lower back against the floor. Hold 10 seconds. Repeat 10 times, twice daily. KNEE RAISE: Lying on the back with knees bent, raise one knee to your chest, then the other. Hold both knees against the chest 10 seconds, then lower one knee at a time. Repeat 10 times, twice daily. PARTIAL TRUNK RAISE: Lie face down, arms at your sides. Keeping your waist on the floor, use your arms raise your chest up. Support yourself on your elbows for 30 seconds. Repeat twice daily, increasing the time to two minutes as you recover. FOLLOW-UP CARE: If you have been referred to a physician for follow-up care, call the physician s office for an appointment as you were instructed or within the next two days. If you experience worsening or a significant change in your symptoms, notify the physician immediately or return to the Emergency Department at any time for re-evaluation. Forms: Elevated Blood Pressure Referrals: YEE LEONARD PA-C [Primary Care Provider] - Follow up as needed YOLANDA HUDDLESTON MD [NO LOCAL MD] - 04/29/17
[2017-04-27 12:17] VITALS: BP 149/98
== END 2017-04-27 12:09 | disposition home or self-care (01) ==
LOC: ER 10:02
DX: G89.29 Other chronic pain (principal); M54.41 Lumbago with sciatica, right side; I10 Essential (primary) hypertension; J45.909 Unspecified asthma, uncomplicated; Z88.8 Allergy status to other drugs, medicaments and biological substances; Z88.5 Allergy status to narcotic agent; Z87.891 Personal history of nicotine dependence
CPT/HCPCS: 99283; 96372; J1885

== ENCOUNTER 2017-05-30 01:39 | Emergency (ER) | payer MEDICARE, MEDICAID, OTHER ==
[2017-05-30 01:45] VITALS: BP 158/106
[2017-05-30] MEDS ORDERED: BUPIVACAINE HCL 0.5 % INJ/PF 30 ML SDV ONE (02:05)
[2017-05-30] MEDS ORDERED: BUPIVACAINE HCL 0.5 % INJ/PF 30 ML SDV INJ ONE (02:07)
--- NOTE | 2017-05-30 02:36 | ER Document Report ---
ED General - General Chief Complaint: Leg Pain Stated Complaint: LEG PAIN Time Seen by Provider: 05/30/17 01:59 Mode of Arrival: Ambulatory Information source: Patient Notes: 61-year-old female history of sciatica presents with complaints of sciatic nerve pain. Patient notes that this is the same exact pain that she always has however she used to receive injections for and no longer does, patient used to receive injections every 3 weeks. She is supposed to see him again on Saturday denies any neurological deficits except for numbness in her feet which is chronic for her. She denies any new symptoms. Patient presents requesting a nerve block injection TRAVEL OUTSIDE OF THE [place] IN LAST 30 DAYS: No - HPI Onset: Other Onset/Duration: Persistent Quality of pain: Sharp Severity: Mild Pain Level: 2 Associated symptoms: Body/muscle aches Exacerbated by: Movement, Walking Relieved by: Denies Similar symptoms previously: Yes Recently seen / treated by doctor: Yes - Related Data Allergies/Adverse Reactions: hydrocodone [Hydrocodone] Allergy (Severe, Verified 04/27/17 01:40) sertraline HCl [From Zoloft] Allergy (Severe, Verified 04/27/17 01:40) hives, resp arrest propranolol HCl [From Inderal] Allergy (Intermediate, Verified 04/27/17 01:40) Hives ketorolac [From Toradol] Allergy (Verified 04/27/17 01:40) lamotrigine [From Lamictal] Allergy (Verified 04/27/17 01:40) ondansetron Allergy (Verified 04/27/17 01:40) propranolol Allergy (Verified 04/27/17 01:40) Past Medical History - Social History Smoking Status: Never Smoker Cigarette use (# per day): No Chew tobacco use (# tins/day): No Smoking Education Provided: No Family History: Arthritis, CVA, Hyperlipidemia, Hypertension, Malignancy, Thyroid Disfunction - Past Medical History Cardiac Medical History: Reports: Hx Hypercholesterolemia, Hx Hypertension Pulmonary Medical History: Reports: Hx Asthma Neurological Medical History: Reports: Hx Cerebrovascular Accident, Hx Migraine Endocrine Medical History: Reports: Hx Diabetes Mellitus Type 2 - borderline diet controlled, Hx Hypothyroidism - Thyroid removed Renal/ Medical History: Reports: Hx Kidney Stones, Hx Ovarian Cysts. Denies: Hx Peritoneal Dialysis GI Medical History: Reports: Hx Gastroesophageal Reflux Disease, Hx Irritable Bowel Musculoskeltal Medical History: Reports Hx Arthritis, Reports Hx Musculoskeletal Deformity, Reports Hx Musculoskeletal Trauma Psychiatric Medical History: Reports: Hx Bipolar Disorder, Hx Depression, Hx Schizophrenia Past Surgical History: Reports: Hx Abdominal Surgery - Ex Lap, Hx Appendectomy - Ex Lap, Hx Section, Hx Gynecologic Surgery - hyst, Hx Hysterectomy, Hx Thyroid Surgery, Hx Tonsillectomy - Immunizations Immunizations up to date: Yes Hx Diphtheria, Pertussis, Tetanus Vaccination: Yes Hx Pneumococcal Vaccination: 12/15/15 Review of Systems - Review of Systems Notes: REVIEW OF SYSTEMS: CONSTITUTIONAL : Denies fever, chills, or sweats. Denies recent illness. EENT: Denies eye, ear, throat, or mouth pain or symptoms. Denies nasal or sinus congestion or discharge. Denies throat, tongue, or mouth swelling or difficulty swallowing. CARDIOVASCULAR: Denies chest pain. Denies palpitations or racing or irregular heart beat. Denies ankle edema. RESPIRATORY: Denies cough, cold, or chest congestion. Denies shortness of breath, difficulty breathing, or wheezing. GASTROINTESTINAL: Denies abdominal pain or distention. Denies nausea, vomiting , or diarrhea. Denies blood in vomitus, stools, or per rectum. Denies black, tarry stools. Denies constipation. GENITOURINARY: Denies difficulty urinating, painful urination, burning, frequency, blood in urine, or discharge. FEMALE GENITOURINARY: Denies vaginal bleeding, heavy or abnormal periods, irregular periods. Denies vaginal discharge or odor. MUSCULOSKELETAL: Admits to sciatic pain down the right leg. SKIN: Denies rash, lesions or sores. HEMATOLOGIC : Denies easy bruising or bleeding. LYMPHATIC: Denies swollen, enlarged glands. NEUROLOGICAL: Baseline numbness of the foot. PSYCHIATRIC: Denies anxiety or stress. Denies depression, suicidal ideation, or homicidal ideation. ALL OTHER SYSTEMS REVIEWED AND NEGATIVE. PHYSICAL EXAMINATION: GENERAL: Well-appearing, well-nourished and in no acute distress. HEAD: Atraumatic, normocephalic. EYES: Pupils equal round and reactive to light, extraocular movements intact, conjunctiva are normal. ENT: Nares patent, oropharynx clear without exudates. Moist mucous membranes. NECK: Normal range of motion, supple without lymphadenopathy LUNGS: Breath sounds clear to auscultation bilaterally and equal. No wheezes rales or rhonchi. HEART: Regular rate and rhythm without murmurs ABDOMEN: Soft, nontender, nondistended abdomen. No guarding, no rebound. No masses appreciated. Female : deferred Musculoskeletal: Patient has mild difficulty with ambulation, she has tenderness in the sciatic nerve region NEUROLOGICAL: Cranial nerves grossly intact. Normal speech, normal gait. Normal sensory, motor exams except for subjective paresthesia of her foot PSYCH: Normal mood, normal affect. SKIN: Warm, Dry, normal turgor, no rashes or lesions noted. Dictation was performed using [employer] voice recognition software Physical Exam - Vital signs Vitals: Temp Pulse Resp BP Pulse Ox 98.7 F 101 H 20 158/106 H 97 05/30/17 01:40 05/30/17 01:40 05/30/17 01:40 05/30/17 01:40 05/30/17 01:40 Course - Re-evaluation Re-evalutation: 05/30/17 02:56 Patient is insistent on receiving a sciatic nerve block, at her request I did perform the procedure, we discussed risks and benefits prior to the procedure and the area was cleaned in a very sterile manner. 10 cc of Sensorcaine was injected and patient noted instant relief I will discharge her at this time since she is feeling better and has had no reaction to the injection patient has been instructed to return immediately if there is any worsening symptoms or new symptoms which may occur from the injection After performing a Medical Screening Examination, I estimate there is LOW risk for EXPANDING OR RUPTURED ABDOMINAL AORTIC ANEURYSM, CAUDA EQUINA SYNDROME, EPIDURAL MASS LESION, or HERNIATED DISK CAUSING SEVERE SPINAL STENOSIS, thus I consider the discharge disposition reasonable. I have reevaluated this patient multiple times and no significant life threatening changes are noted. The patient and I have discussed the diagnosis and risks, and we agree with discharging home and close follow-up. We also discussed returning to the Emergency Department immediately if new or worsening symptoms occur with the understanding that symptoms and presentations can change. We have discussed the symptoms which are most concerning (e.g., saddle anesthesia, urinary or bowel incontinence or retention, changing or worsening pain) that necessitate immediate return. - Vital Signs Vital signs: Temp Pulse Resp BP Pulse Ox 98.7 F 101 H 20 158/106 H 97 05/30/17 01:40 05/30/17 01:40 05/30/17 01:40 05/30/17 01:40 05/30/17 01:40 Procedures - Additional Procedures sciatic nerve block Time performed: 02:20 Notes: 05/30/17 02:35 After consent was signed and risks and benefits were explained to the patient thoroughly the area was marked at the point tenderness of the patient's sciatic nerve, the area was cleansed extensively using both Betadine and Shur-Clens, using a 22-gauge needle 10 cc of Sensorcaine 0.5% was injected into the sciatic nerve region with complete resolution of the patient's pain, no complications noted. Risks of infection paralysis abscess and other life-threatening reactions have been explained to the patient Discharge - Discharge Clinical Impression: Sciatica Qualifiers: Laterality: right Qualified Code(s): M54.31 - Sciatica, right side Condition: Stable Disposition: HOME, SELF-CARE Instructions: Sciatica ([facility]) Additional Instructions: Follow up with your physician tomorrow for further care or return to the ED IMMEDIATELY if symptoms worsen or new concerns occur. If you cannot afford to follow up with your primary care physician a list of low cost clinics have been provided at the end of your discharge papers as well.
== END 2017-05-30 03:10 | disposition home or self-care (01) ==
LOC: ER 01:39
DX: M54.31 Sciatica, right side (principal); I10 Essential (primary) hypertension; J45.909 Unspecified asthma, uncomplicated; Z88.5 Allergy status to narcotic agent; Z88.8 Allergy status to other drugs, medicaments and biological substances
CPT/HCPCS: 99283; 64445; J3490

== ENCOUNTER → 2017-06-20 | Outpatient (CLI) | payer MEDICARE, MEDICAID ==
--- NOTE | 2017-06-20 12:26 | RADIOLOGY REPORT (SQ) ---
EXAM DESCRIPTION: CHEST PA/LATERAL COMPLETED DATE/TIME: 06/20/2017 12:09 pm REASON FOR STUDY: PRE-OP COMPARISON: None. EXAM PARAMETERS: NUMBER OF VIEWS: two views TECHNIQUE: Digital Frontal and Lateral radiographic views of the chest acquired. RADIATION DOSE: NA LIMITATIONS: none FINDINGS: LUNGS AND PLEURA: Apical pleural scarring. No opacities, masses or pneumothorax. No pleur al effusion. MEDIASTINUM AND HILAR STRUCTURES: No masses or contour abnormalities. HEART AND VASCULAR STRUCTURES: Heart upper limits of normal size. No evidence for failure. BONES: No acute findings. HARDWARE: None in the chest. OTHER: No other significant finding. IMPRESSION: NO ACUTE RADIOGRAPHIC FINDING IN THE CHEST. TECHNICAL DOCUMENTATION: JOB ID: [id number] [employer]- All Rights Reserved Reading location - IP/workstation name: [email or web address]
[2017-06-20 12:38] LABS: APPEARANCE,URINE CLEAR; BILIRUBIN,URINE NEGATIVE (NEGATIVE); COLOR,URINE YELLOW; GLUCOSE, URINE NEGATIVE (NEGATIVE); KETONES,URINE NEGATIVE (NEGATIVE); LEUKOCYTE ESTERASE,URINE NEGATIVE (NEGATIVE); NITRITE,URINE NEGATIVE (NEGATIVE); PROTEIN,URINE NEGATIVE (NEGATIVE); URINE SPECIFIC GRAVITY 1.006; UROBILINOGEN,URINE NEGATIVE mg/dL (<2.0)
[2017-06-20 12:48] LABS: ABSOLUTE BASOPHILS # (AUTO) 0.1 10^3/uL (0.0-0.2); ABSOLUTE EOSINOPHILS # (AUTO) 0.4 10^3/uL (0.0-0.6); ABSOLUTE MONOCYTES (AUTO) 0.6 10^3/uL (0.1-1.4); ABSOLUTE NEUT (AUTO) 3.9 10^3/uL (1.7-8.2); BASOPHILS % (AUTO) 1.2 % (0-2); EOSINOPHILS % (AUTO) 5.1 % (0-6); HEMATOCRIT 41.6 % (36.0-47.0); HEMOGLOBIN 14.5 g/dL (12.0-15.5); LYMPHOCYTES % (AUTO) 37.6 % (13-45); MEAN CORPUSCULAR HEMOGLOBIN 32.2 pg (27.0-33.4); MEAN CORPUSCULAR HGB CONC 34.9 g/dL (32.0-36.0); MEAN CORPUSCULAR VOLUME 92 fl (80-97); MONOCYTES % (AUTO) 7.6 % (3-13); PLATELET COUNT 317 10^3/uL (150-450); RED BLOOD COUNT 4.52 10^6/uL (3.72-5.28); RED CELL DISTRIBUTION WIDTH 13.1 % (11.5-14.0); SEGMENTED NEUTROPHILS % (AUTO) 48.5 % (42-78); TOTAL CELLS COUNTED % (AUTO) 100 %; WHITE BLOOD COUNT 8.1 10^3/uL (4.0-10.5)
[2017-06-20 12:59] LABS: ANION GAP 14 (5-19); BLOOD UREA NITROGEN 15 mg/dL (7-20); CALCIUM 10.4 mg/dL (8.4-10.2); CARBON DIOXIDE 27 mmol/L (22-30); CHLORIDE 98 mmol/L (98-107); GLUCOSE 82 mg/dL (75-110); POTASSIUM 4.6 mmol/L (3.6-5.0); SODIUM 138.7 mmol/L (137-145)
--- NOTE | 2017-06-20 21:55 | EKG REPORT ---
SEVERITY:- ABNORMAL ECG - SINUS RHYTHM CONSIDER LEFT VENTRICULAR HYPERTROPHY : Confirmed by: Tomi Stapleton 20-Jun-2017 21:54:36
== END ==
LOC: OD 11:29
PROVIDERS: ATTEND Orthopaedic Surgery
DX: Z01.810 Encounter for preprocedural cardiovascular examination (principal); Z01.812 Encounter for preprocedural laboratory examination; Z01.818 Encounter for other preprocedural examination
CPT/HCPCS: 36415; 71046; 80048; 81001; 85025; 93005; 93010

== ENCOUNTER 2017-06-22 01:38 | Emergency (ER) | payer MEDICARE, MEDICAID ==
[2017-06-22] MEDS ORDERED: HYDROMORPHONE HCL INJ/PF 2 MG/ML AMPULE IM ONE (03:12)
[2017-06-22] MEDS ORDERED: DEXAMETHASONE SOD PHOS INJ 10 MG/1 ML VIAL IM ONE (03:13)
--- NOTE | 2017-06-22 03:14 | ER Document Report ---
ED Extremity Problem, Lower - General Chief Complaint: Leg Pain Stated Complaint: LEG PAIN Time Seen by Provider: 06/22/17 03:00 Notes: Patient is a 61-year-old female who comes emergency department for chief complaint of right leg pain. She states that she has been diagnosed with a Matt's cyst that has worsened and now she is actually completing preop to have the cyst removed because of ongoing swelling and pain. She denies any fever or chills, increased swelling since she was evaluated by orthopedics within the past 24 hours. She denies lower back pain, she denies any numbness or incontinence. She also has ongoing chronic sciatic pain which she has received injections and she takes Endocet for. She states she is contacting her provider on Saturday to see if she can get this adjusted because pain has become unbearable to the point that she cannot sleep at night and that is why she is here tonight. TRAVEL OUTSIDE OF THE [place] IN LAST 30 DAYS: No - Related Data Allergies/Adverse Reactions: hydrocodone [Hydrocodone] Allergy (Severe, Verified 06/22/17 01:38) sertraline HCl [From Zoloft] Allergy (Severe, Verified 06/22/17 01:38) hives, resp arrest propranolol HCl [From Inderal] Allergy (Intermediate, Verified 06/22/17 01:38) Hives ketorolac [From Toradol] Allergy (Verified 06/22/17 01:38) lamotrigine [From Lamictal] Allergy (Verified 06/22/17 01:38) ondansetron Allergy (Verified 06/22/17 01:38) propranolol Allergy (Verified 06/22/17 01:38) Past Medical History - General Information source: Patient - Social History Smoking Status: Never Smoker Frequency of alcohol use: None Drug Abuse: None Lives with: Family Family History: Arthritis, CVA, Hyperlipidemia, Hypertension, Malignancy, Thyroid Disfunction - Past Medical History Cardiac Medical History: Reports: Hx Hypercholesterolemia, Hx Hypertension Pulmonary Medical History: Reports: Hx Asthma Neurological Medical History: Reports: Hx Cerebrovascular Accident, Hx Migraine Endocrine Medical History: Reports: Hx Diabetes Mellitus Type 2 - borderline diet controlled, Hx Hypothyroidism - Thyroid removed Renal/ Medical History: Reports: Hx Kidney Stones, Hx Ovarian Cysts. Denies: Hx Peritoneal Dialysis GI Medical History: Reports: Hx Gastroesophageal Reflux Disease, Hx Irritable Bowel Musculoskeltal Medical History: Reports Hx Arthritis, Reports Hx Musculoskeletal Deformity, Reports Hx Musculoskeletal Trauma Psychiatric Medical History: Reports: Hx Bipolar Disorder, Hx Depression, Hx Schizophrenia Past Surgical History: Reports: Hx Abdominal Surgery - Ex Lap, Hx Appendectomy - Ex Lap, Hx Section, Hx Gynecologic Surgery - hyst, Hx Hysterectomy, Hx Thyroid Surgery, Hx Tonsillectomy - Immunizations Immunizations up to date: Yes Hx Diphtheria, Pertussis, Tetanus Vaccination: Yes Hx Pneumococcal Vaccination: 12/15/15 Review of Systems - Review of Systems Constitutional: No symptoms reported EENT: No symptoms reported Cardiovascular: No symptoms reported Respiratory: No symptoms reported Gastrointestinal: No symptoms reported Genitourinary: No symptoms reported Female Genitourinary: No symptoms reported Musculoskeletal: See HPI Skin: No symptoms reported Hematologic/Lymphatic: No symptoms reported Neurological/Psychological: No symptoms reported Physical Exam - Vital signs Vitals: Temp Pulse Resp BP Pulse Ox 98.6 F 94 18 180/111 H 99 06/22/17 01:44 06/22/17 01:44 06/22/17 01:44 06/22/17 01:44 06/22/17 01:44 Interpretation: Normal - General General appearance: Appears well In distress: None - Patient moves with some discomfort but otherwise does not appear to be in any distress - HEENT Head: Normocephalic, Atraumatic Eyes: Normal Pupils: PERRL - Respiratory Respiratory status: No respiratory distress Chest status: Nontender Breath sounds: Normal. No: Decreased air movement, Wheezing Chest palpation: Normal - Cardiovascular Rhythm: Regular. No: Tachycardia Heart sounds: Normal auscultation, S1 appreciated, S2 appreciated Murmur: No - Abdominal Inspection: Normal Distension: No distension Bowel sounds: Normal Tenderness: Nontender. No: Tender, Guarding - Back Back: Normal, Nontender. No: Tender - Extremities General upper extremity: Normal inspection, Nontender, Normal strength, Normal temperature General lower extremity: Other - There is swelling behind the right knee consistent with a Matt's cyst, the area is tender although there is no erythema , abnormal heat, or indurated area. Range of motion is painful but present. Distal neurovascular exam is unremarkable. Lower extremity exam was unremarkable otherwise. - Neurological Neuro grossly intact: Yes Cognition: Normal Orientation: AAOx4 Vicky Coma Scale Eye Opening: Spontaneous [place] Coma Scale Verbal: Oriented [place] Coma Scale Motor: Obeys Commands Vicky Coma Scale Total: 15 Speech: Normal Motor strength normal: LUE, RUE, LLE, RLE Sensory: Normal - Psychological Associated symptoms: Normal affect, Normal mood - Skin Skin Temperature: Warm Skin Moisture: Dry Skin Color: Normal Course - Re-evaluation Re-evalutation: Patient already has good follow-up with both orthopedics and pain management. There is no evidence of infection on examination, no lower extremity swelling suggesting DVT, patient is Jan had a full workup evaluating this and is already in preop status. Looking for management for tonight and this weekend. Provided with pain medicine and dexamethasone. This has worked well for the patient in the past. Discussed follow-up and return precautions. Patient states understanding and agreement. - Vital Signs Vital signs: Temp Pulse Resp BP Pulse Ox 98.6 F 94 18 180/111 H 99 06/22/17 01:44 06/22/17 01:44 06/22/17 01:44 06/22/17 01:44 06/22/17 01:44 Discharge - Discharge Clinical Impression: Right leg pain Condition: Stable Disposition: HOME, SELF-CARE Additional Instructions: You have been medicated tonight for pain and inflammation, continue current medications, follow-up with your provider on Saturday for additional management of your painful condition. Return if you worsen including redness, increased swelling, fever of 100.4 or greater, numbness, or any other concerning symptoms.
[2017-06-22 05:09] VITALS: BP 167/107
== END 2017-06-22 03:52 | disposition home or self-care (01) ==
LOC: ER 01:38
DX: M71.21 Synovial cyst of popliteal space [Baker], right knee (principal); M54.30 Sciatica, unspecified side; G89.29 Other chronic pain; Z79.891 Long term (current) use of opiate analgesic; Z88.5 Allergy status to narcotic agent; Z88.8 Allergy status to other drugs, medicaments and biological substances; I10 Essential (primary) hypertension; J45.909 Unspecified asthma, uncomplicated
CPT/HCPCS: 99283; 96372; J1170; J1100

== ENCOUNTER 2017-06-22 18:11 | Emergency (ER) | payer MEDICARE, MEDICAID ==
[2017-06-22] MEDS ORDERED: CLONIDINE HCL 0.2 MG TABLET PO ONE (18:39)
--- NOTE | 2017-06-22 18:42 | ER Document Report ---
ED Medical Screen (RME) - General Chief Complaint: bakers cyst Stated Complaint: LEG PAIN Time Seen by Provider: 06/22/17 18:39 Mode of Arrival: Wheelchair Information source: Patient TRAVEL OUTSIDE OF THE [place] IN LAST 30 DAYS: No - HPI Patient complains to provider of: LBP and HTN Onset: Other - pt with h/o sciatica with newly diagnosed Matt's cyst and elevataed BP today - Related Data Allergies/Adverse Reactions: hydrocodone [Hydrocodone] Allergy (Severe, Verified 06/22/17 18:15) sertraline HCl [From Zoloft] Allergy (Severe, Verified 06/22/17 18:15) hives, resp arrest propranolol HCl [From Inderal] Allergy (Intermediate, Verified 06/22/17 18:15) Hives ketorolac [From Toradol] Allergy (Verified 06/22/17 18:15) lamotrigine [From Lamictal] Allergy (Verified 06/22/17 18:15) ondansetron Allergy (Verified 06/22/17 18:15) propranolol Allergy (Verified 06/22/17 18:15) Past Medical History - Past Medical History Cardiac Medical History: Reports: Hx Hypercholesterolemia, Hx Hypertension Pulmonary Medical History: Reports: Hx Asthma Neurological Medical History: Reports: Hx Cerebrovascular Accident, Hx Migraine Endocrine Medical History: Reports: Hx Diabetes Mellitus Type 2 - borderline diet controlled, Hx Hypothyroidism - Thyroid removed Renal/ Medical History: Reports: Hx Kidney Stones, Hx Ovarian Cysts. Denies: Hx Peritoneal Dialysis GI Medical History: Reports: Hx Gastroesophageal Reflux Disease, Hx Irritable Bowel Musculoskeltal Medical History: Reports Hx Arthritis, Reports Hx Musculoskeletal Deformity, Reports Hx Musculoskeletal Trauma Psychiatric Medical History: Reports: Hx Bipolar Disorder, Hx Depression, Hx Schizophrenia Past Surgical History: Reports: Hx Abdominal Surgery - Ex Lap, Hx Appendectomy - Ex Lap, Hx Section, Hx Gynecologic Surgery - hyst, Hx Hysterectomy, Hx Thyroid Surgery, Hx Tonsillectomy - Immunizations Immunizations up to date: Yes Hx Diphtheria, Pertussis, Tetanus Vaccination: Yes Physical Exam - Vital signs Vitals: Temp Pulse Resp BP Pulse Ox 99.1 F 108 H 18 187/104 H 94 06/22/17 18:26 06/22/17 18:26 06/22/17 18:26 06/22/17 18:26 06/22/17 18:26 Course - Vital Signs Vital signs: Temp Pulse Resp BP Pulse Ox 99.1 F 108 H 18 187/104 H 94 06/22/17 18:26 06/22/17 18:26 06/22/17 18:26 06/22/17 18:26 06/22/17 18:26 Doctor's Discharge - Discharge Referrals: MECHE CLIFFORD MD [Primary Care Provider] - Follow up as needed
--- NOTE | 2017-06-22 19:17 | RADIOLOGY REPORT (SQ) ---
EXAM DESCRIPTION: L SPINE WHOLE COMPLETED DATE/TIME: 06/22/2017 7:06 pm REASON FOR STUDY: LBP COMPARISON: 05/25/2012 NUMBER OF VIEWS: Five views including obliques. TECHNIQUE: AP, lateral, oblique, and sacral radiographic images acquired of the lumbar spine. LIMITATIONS: None. FINDINGS: MINERALIZATION: Normal. SEGMENTATION: Normal. No transitional anatomy. ALIGNMENT: Normal. VERTEBRAE: Maintained height. No fracture or worrisome bone lesion. DISCS: Preserved height. No significant osteophytes or end plate irregularity. POSTERIOR ELEMENTS: Mild facet arthropathy. Pedicles and facets are intact. No pars defect or poste rior arch defects. HARDWARE: None in the spine. PARASPINAL SOFT TISSUES: Atherosclerotic vascular calcifications localize to the abdominal aorta. Sweeney rgical clips are seen within the right hemiabdomen. . PELVIS: Intact as visualized. No fractures or worrisome bone lesions. SI joints intact. OTHER: No other significant finding. IMPRESSION: Mild facet arthropathy. No evidence of acute osseous injury or abnormality. TECHNICAL DOCUMENTATION: JOB ID: [id number] [employer]- All Rights Reserved Reading location - IP/workstation name: [email or web address]
--- NOTE | 2017-06-22 19:33 | ER Document Report ---
ED Neck/Back Problem - General Chief Complaint: bakers cyst Stated Complaint: LEG PAIN Time Seen by Provider: 06/22/17 18:39 Mode of Arrival: Wheelchair Information source: Patient Notes: 61-year-old female presented ED for complaint of back pain and leg pain. She has a history of low back pain with sciatica high blood pressure and a Matt's cyst. She is supposed to be going to surgery on July [address] Clifford. She is already had a MRI of the Matt's cyst. She has a long history of back pain with sciatica and is on pain management for this. Patient asking for another prescription for narcotics. Explained to her that if she is on pain management and she is written a prescription for narcotics that they were at least counseled her pain management. TRAVEL OUTSIDE OF THE [place] IN LAST 30 DAYS: No - HPI Onset: Other - Chronic Onset: Chronic Timing: Still present Quality of pain: Achy, Sharp Severity: Severe Pain Level: 5 Context: Other - Chronic pain no new changes patient asking for more narcotics Recent injury: No Associated symptoms: Like prior neck/back pain, Radiation to leg, Lower back pain. denies: Incontinence, Motor loss, Numbness/tingling, Sensory loss, Sweaty , Unable to urinate, Upper back pain Exacerbated by: Movement of trunk, Sitting position Relieved by: Nothing Similar symptoms previously: Yes Recently seen / treated by doctor: Yes - Related Data Allergies/Adverse Reactions: hydrocodone [Hydrocodone] Allergy (Severe, Verified 03 18:42) sertraline HCl [From Zoloft] Allergy (Severe, Verified 06/22/17 18:42) hives, resp arrest propranolol HCl [From Inderal] Allergy (Intermediate, Verified 06/22/17 18:42) Hives ketorolac [From Toradol] Allergy (Verified 06/22/17 18:42) lamotrigine [From Lamictal] Allergy (Verified 06/22/17 18:42) ondansetron Allergy (Verified 06/22/17 18:42) oxycodone Allergy (Verified 06/22/17 18:42) Hives propranolol Allergy (Verified 06/22/17 18:42) Past Medical History - General Information source: Patient - Social History Smoking Status: Never Smoker Cigarette use (# per day): No Chew tobacco use (# tins/day): No Smoking Education Provided: No Frequency of alcohol use: Rare Drug Abuse: None Lives with: Family Family History: Arthritis, CVA, Hyperlipidemia, Hypertension, Malignancy, Thyroid Disfunction. denies: CAD, COPD Patient has suicidal ideation: No Patient has homicidal ideation: No - Past Medical History Cardiac Medical History: Reports: Hx Hypercholesterolemia, Hx Hypertension Pulmonary Medical History: Reports: Hx Asthma EENT Medical History: Reports: None Neurological Medical History: Reports: Hx Cerebrovascular Accident, Hx Migraine Endocrine Medical History: Reports: Hx Diabetes Mellitus Type 2 - borderline diet controlled, Hx Hypothyroidism - Thyroid removed Renal/ Medical History: Reports: Hx Kidney Stones, Hx Ovarian Cysts Malignancy Medical History: Reports: None GI Medical History: Reports: Hx Gastroesophageal Reflux Disease, Hx Irritable Bowel Musculoskeltal Medical History: Reports Hx Arthritis, Reports Hx Musculoskeletal Deformity, Reports Hx Musculoskeletal Trauma Skin Medical History: Reports None Psychiatric Medical History: Reports: Hx Bipolar Disorder, Hx Depression, Hx Schizophrenia Traumatic Medical History: Reports: None Infectious Medical History: Reports: None Past Surgical History: Reports: Hx Abdominal Surgery - Ex Lap, Hx Appendectomy - Ex Lap, Hx Section, Hx Gynecologic Surgery - hyst, Hx Hysterectomy, Hx Thyroid Surgery, Hx Tonsillectomy - Immunizations Immunizations up to date: Yes Hx Diphtheria, Pertussis, Tetanus Vaccination: Yes Hx Pneumococcal Vaccination: 12/15/15 Review of Systems - Review of Systems Constitutional: No symptoms reported EENT: No symptoms reported Cardiovascular: No symptoms reported Respiratory: No symptoms reported Gastrointestinal: No symptoms reported Genitourinary: No symptoms reported Female Genitourinary: No symptoms reported Musculoskeletal: Back pain, Other - Matt's cyst has already been evaluated and is scheduled for surgery on July 15 Skin: No symptoms reported Hematologic/Lymphatic: No symptoms reported Neurological/Psychological: No symptoms reported Physical Exam - Vital signs Vitals: Temp Pulse Resp BP Pulse Ox 99.1 F 108 H 18 187/104 H 94 06/22/17 18:26 06/22/17 18:26 06/22/17 18:26 06/22/17 18:26 06/22/17 18:26 Interpretation: Normal - General General appearance: Appears well, Alert - HEENT Head: Normocephalic, Atraumatic Eyes: Normal Pupils: PERRL - Respiratory Respiratory status: No respiratory distress Chest status: Nontender Breath sounds: Normal Chest palpation: Normal - Cardiovascular Rhythm: Regular Heart sounds: Normal auscultation Murmur: No - Abdominal Inspection: Normal Distension: No distension Bowel sounds: Normal Tenderness: Nontender Organomegaly: No organomegaly - Back Back: Normal, Tender. No: Deformity/step-off, CVA tenderness, Vertebra tenderness, Scars, Scoliosis, Wounds - Extremities General upper extremity: Normal inspection, Nontender, Normal color, Normal ROM , Normal temperature General lower extremity: Normal color, Normal ROM, Normal temperature, Normal weight bearing. No: Juliana's sign Knee: Tender, Pain with ROM, Patellar tendon intact, Popliteal fossa tender, Other - Matt's cyst right leg. No: Abrasion, Deformity, Dislocation, Drawer's test instability, Ecchymosis, Instability, Joint effusion, Laceration, Laxity with valgus stress, Laxity with varus stress, Tender joint line - Neurological Neuro grossly intact: Yes Cognition: Normal Orientation: AAOx4 Bethel Coma Scale Eye Opening: Spontaneous Bethel Coma Scale Verbal: Oriented Vicky Coma Scale Motor: Obeys Commands Vicky Coma Scale Total: 15 Speech: Normal Motor strength normal: LUE, RUE, LLE, RLE Sensory: Normal - Psychological Associated symptoms: Normal affect, Normal mood - Skin Skin Temperature: Warm Skin Moisture: Dry Skin Color: Normal Course - Vital Signs Vital signs: Temp Pulse Resp BP Pulse Ox 98.6 F 98 20 174/108 H 95 06/22/17 20:02 06/22/17 20:02 06/22/17 20:02 06/22/17 20:02 06/22/17 20:02 Discharge - Discharge Clinical Impression: Chronic back pain greater than 3 months duration Chronic pain Qualifiers: Chronic pain type: chronic pain syndrome Qualified Code(s): G89.4 - Chronic pain syndrome Condition: Stable Disposition: HOME, SELF-CARE Additional Instructions: Chronic Pain Control Stress, inactivity, and depression make pain more severe regardless of the cause of the pain. Stress and poor physical condition can cause pain such as headaches and backache. Relaxation: Rest in a quiet place with your eyes closed for 20 minutes twice daily. Concentrate on a pleasant image, or simply "feel" your breathing. Clear your mind. Stress management: Deal with your "stressors." Either take action, or eliminate the stressor from your life. Don't let things hang over you. Accept those things you can't change. Nutrition: Eat small, balanced meals -- don't skip, don't overeat. Meals should be high-carbohydrate, low-sugar, low-fat. Exercise: Exercise helps painful conditions and eases stress. Get 30 minutes of moderate exercise, five days a week. Do an activity that does not flare your pain. Precautions: Pain which continues to disrupt daily activities, or which changes in nature, requires a medical evaluation. Pain Clinic referral is available. We do not manage chronic pain in the Emergency Department. We will try to appropriately help you through an acute flare of your chronic painful condition , but for on-going chronic pain that does not improve, you will need to see your private doctor or brush painter. We do not provide repeated medication management of chronic painful conditions. If you wish, we can provide the name of local pain management physicians. Chronic Back Pain Chronic back pain (pain persisting longer than three months) is a common problem. A medical evaluation can look for herniated disc, arthritis, osteoporosis, tumors, and infections. But at least half the time, there's no obvious treatable cause. Anxiety and depression tend to worsen back pain. Ibuprofen or other anti-inflammatory medicine can help. A heating pad, used for 15-20 minutes at a time, can ease pain. For this type of back pain, narcotic medicines should be avoided. Muscle relaxers are rarely helpful unless you're having spasms. Activity is important. Find an aerobic exercise program that your back can tolerate. Too much rest makes back pain worse. Specific back exercises are usually prescribed to strengthen the back and abdominal muscles. Often, a physical therapist can help. Avoid heavy lifting, working while bent over, or standing with both knees straight. Most back pain patients do better with a firm mattress. If new symptoms of a "herniated disc" (radiation of pain, numbness, or tingling down the back of the leg or weakness in the leg) occur, you should be re-examined. Sciatica Your symptoms suggest "sciatica." The pain of sciatica typically radiates down the leg. Numbness in the foot or calf may also occur. Sciatica is caused by irritation of the sciatic nerve or its branches. The irritation can be due to a herniated disk in the spine, swelling and inflammation in the muscles surrounding the sciatic nerve, or direct injury of the nerve itself. Most cases of sciatica will resolve with medical treatment. Bed rest is usually recommended initially. Surgery is only necessary when the condition will not improve with rest and antiinflammatory medication. Muscle relaxers are often given if muscle soreness is present. A CAT scan of the back may be performed if a herniated disk is suspected. Re-examination is necessary if you develop increasing numbness, localized weakness in the foot or ankle, or if the pain does not respond to rest. HIGH BLOOD PRESSURE REQUIRING TREATMENT: Your blood pressure is high. This is called "hypertension." Today's reading was __187/104 (normal is less than 140/90). Your history and exam suggest that this is not a temporary problem. You need treatment of your blood pressure. If left untreated, high blood pressure greatly increases your risk of heart attack and stroke. Please don't ignore this problem. If you have blood pressure medicine but aren't using it regularly, start taking it again. Some simple things you can do to help are: Get some aerobic exercise for at least 20 minutes on a daily basis. (See your doctor before beginning any new exercise program.) Eat a low-fat diet. Lose excess weight. Avoid salty foods and avoid adding salt to any of the foods you eat. Avoid diet pills, decongestants, "energizing" herbs, and other medicines that elevate blood pressure. There are many different medicines that treat blood pressure. If your medication causes unpleasant side effects, call your doctor. There are others you can try. Treating hypertension is a life-long investment in your health. CLONIDINE (CATAPRES): Clonidine is blood-pressure medicine. It works in your brain, making the nervous system relax the blood vessels. This medicine can also be used for symptoms of narcotic withdrawal. Clonidine frequently causes dry mouth, drowsiness, and dizziness. These symptoms go away as you continue to use it. Rest for the first couple of days. Don't drive or use machinery until you're back to normal. Never stop clonidine suddenly! There can be a "rebound" severe increase in blood pressure, headache, and agitation. Be sure you always have enough of the medicine. Call the doctor if you have any new symptoms such as skin rash, weakness, severe lightheadedness, chest pain, headache, or depression. Lidoderm patch was placed on your back for your chronic back pain with sciatica. Stretching Exercises for the Back The physician has recommended that you begin stretching exercises for your back. These are often used even while the back is painful. However, you should notify the physician if the activities seem to increase your pain. PELVIC TILT: Lie flat on your back with knees bent. Tighten your stomach and buttock muscles so it flattens your lower back against the floor. Hold 10 seconds. Repeat 10 times, twice daily. KNEE RAISE: Lying on the back with knees bent, raise one knee to your chest, then the other. Hold both knees against the chest 10 seconds, then lower one knee at a time. Repeat 10 times, twice daily. PARTIAL TRUNK RAISE: Lie face down, arms at your sides. Keeping your waist on the floor, use your arms raise your chest up. Support yourself on your elbows for 30 seconds. Repeat twice daily, increasing the time to two minutes as you recover. FOLLOW-UP CARE: If you have been referred to a physician for follow-up care, call the physician s office for an appointment as you were instructed or within the next two days. If you experience worsening or a significant change in your symptoms, notify the physician immediately or return to the Emergency Department at any time for re-evaluation. Forms: Elevated Blood Pressure Referrals: MECHE CLIFFORD MD [Primary Care Provider] - Follow up as needed
[2017-06-22 20:03] VITALS: BP 174/108
[2017-06-22] MEDS ORDERED: LIDOCAINE 5% (700 MG) TRANSDERMAL ADH..PATCH TP ONE (20:06)
== END 2017-06-22 20:29 | disposition home or self-care (01) ==
LOC: ER 18:11
DX: G89.4 Chronic pain syndrome (principal); M54.40 Lumbago with sciatica, unspecified side; M71.21 Synovial cyst of popliteal space [Baker], right knee; I10 Essential (primary) hypertension; J45.909 Unspecified asthma, uncomplicated; Z88.5 Allergy status to narcotic agent; Z88.8 Allergy status to other drugs, medicaments and biological substances
CPT/HCPCS: 99283; 72110; A9270

== ENCOUNTER 2017-06-30 13:10 | Emergency (ER) | payer MEDICARE, MEDICAID, OTHER ==
[2017-06-30] MEDS ORDERED: KETOROLAC TROMETHAMINE INJ/PF 30 MG/1 ML SDV IM ONE (14:30)
--- NOTE | 2017-06-30 14:37 | ER Document Report ---
HPI - HPI Patient complains to provider of: bakers cyst Pain Level: 5 Context: Patient is a 61-year-old female who returns emergency department the chief complaint of right posterior knee pain. Past medical history is significant for a Matt's cyst which she is happy being operated on July [address] Clifford. She states that she has been taking her home pain medications but this morning she felt that her pain was more uncomfortable that her home medications were not helping. She denies any recent fall, trauma, twisting motion. She denies any recent travel, surgery, hormone use, patient is a non-smoker. Patient able to bear weight. Patient has been educated to stay off of it but she has been ambulating with a cane. - CONSTITUTIONAL Constitutional: DENIES: Fever, Chills - CARDIOVASCULAR Cardiovascular: DENIES: Chest pain - RESPIRATORY Respiratory: DENIES: Trouble Breathing, Coughing - REPRODUCTIVE Reproductive: DENIES: : - MUSCULOSKELETAL Musculoskeletal: REPORTS: Extremity pain - Cyst behind right knee Past Medical History - Social History Smoking Status: Unknown if Ever Smoked Family History: Arthritis, CVA, Hyperlipidemia, Hypertension, Malignancy, Thyroid Disfunction. denies: CAD, COPD Patient has suicidal ideation: No Patient has homicidal ideation: No - Past Medical History Cardiac Medical History: Reports: Hx Hypercholesterolemia, Hx Hypertension Pulmonary Medical History: Reports: Hx Asthma Neurological Medical History: Reports: Hx Cerebrovascular Accident, Hx Migraine Endocrine Medical History: Reports: Hx Diabetes Mellitus Type 2 - borderline diet controlled, Hx Hypothyroidism - Thyroid removed Renal/ Medical History: Reports: Hx Kidney Stones, Hx Ovarian Cysts. Denies: Hx Peritoneal Dialysis GI Medical History: Reports: Hx Gastroesophageal Reflux Disease, Hx Irritable Bowel Musculoskeltal Medical History: Reports Hx Arthritis, Reports Hx Musculoskeletal Deformity, Reports Hx Musculoskeletal Trauma Psychiatric Medical History: Reports: Hx Bipolar Disorder, Hx Depression, Hx Schizophrenia Past Surgical History: Reports: Hx Abdominal Surgery - Ex Lap, Hx Appendectomy - Ex Lap, Hx Section, Hx Gynecologic Surgery - hyst, Hx Hysterectomy, Hx Thyroid Surgery, Hx Tonsillectomy - Immunizations Immunizations up to date: Yes Hx Diphtheria, Pertussis, Tetanus Vaccination: Yes Hx Pneumococcal Vaccination: 12/15/15 Vertical Provider Document - CONSTITUTIONAL Agree With Documented VS: Yes Notes: PHYSICAL EXAM GENERAL: Alert, interacts well. EXTREMITIES: Moves all 4 extremities spontaneously. no deformity, able to ambulate and bear weight No edema, posterior knee pain, dorsalis pedis pulses 2/ 4 bilaterally. No cyanosis. NEUROLOGICAL: Alert and oriented x4. Normal speech. PSYCH: Normal affect, normal mood. SKIN: Warm, dry, normal turgor. No rashes or lesions noted. - INFECTION CONTROL TRAVEL OUTSIDE OF THE [place] IN LAST 30 DAYS: No - RESPIRATORY O2 Sat by Pulse Oximetry: 96 Course - Re-evaluation Re-evalutation: 06/30/17 14:34 Patient is a 61-year-old female is hemodynamically stable, no acute distress and afebrile. Presentation is consistent with patient's chronic Matt's cyst pain. Will score 0. Extremity is neurovascularly intact. Patient is following up with Dr. Clifford this week for preop visit for her surgery on July 15. Discussed with her that we can give her an anti-inflammatory medication here for her discomfort but nothing narcotic. She did decline crutches at this time. She agrees with plan and stable for discharge home. - Vital Signs Vital signs: Temp Pulse Resp BP Pulse Ox 98.9 F 78 22 H 142/95 H 96 06/30/17 13:32 06/30/17 13:32 06/30/17 13:32 06/30/17 13:32 06/30/17 13:32 Discharge - Discharge Clinical Impression: Matt's cyst of knee Qualifiers: Laterality: right Qualified Code(s): M71.21 - Synovial cyst of popliteal space [Matt], right knee Condition: Good Disposition: HOME, SELF-CARE Instructions: Matt's Cyst ([facility]), Ice & Elevation ([facility]) Additional Instructions: Please continue taking home medications as directed and follow-up with your primary care doctor regarding your presentation today. Please maintain your appointments for your procedure on July 15. Referrals: YEE LEONARD PA-C [Primary Care Provider] - Follow up as needed MECHE CLIFFORD MD [ACTIVE STAFF] - Follow up in 3-5 days
[2017-06-30 15:20] VITALS: BP 149/106
== END 2017-06-30 15:10 | disposition home or self-care (01) ==
LOC: ER 13:10
DX: M71.21 Synovial cyst of popliteal space [Baker], right knee (principal); M25.561 Pain in right knee; E11.9 Type 2 diabetes mellitus without complications; I10 Essential (primary) hypertension; J45.909 Unspecified asthma, uncomplicated
CPT/HCPCS: 99283; 96372; J1885

== ENCOUNTER 2017-07-10 22:15 | Emergency (ER) | payer MEDICARE, MEDICAID ==
[2017-07-10 22:48] VITALS: BP 153/101
== END 2017-07-11 00:20 | disposition left against medical advice (07) ==
LOC: ER 22:15
DX: Z53.21 Procedure and treatment not carried out due to patient leaving prior to being seen by health care provider (principal); M54.9 Dorsalgia, unspecified

== ENCOUNTER 2017-07-11 16:24 | Emergency (ER) | payer MEDICARE, MEDICAID ==
[2017-07-11 17:35] LABS: ABSOLUTE BASOPHILS # (AUTO) 0.1 10^3/uL (0.0-0.2); ABSOLUTE LYMPHOCYTES (AUTO) 0.8 10^3/uL (0.5-4.7); ABSOLUTE MONOCYTES (AUTO) 0.1 10^3/uL (0.1-1.4); ABSOLUTE NEUT (AUTO) 4.2 10^3/uL (1.7-8.2); HEMATOCRIT 40.7 % (36.0-47.0); HEMOGLOBIN 13.7 g/dL (12.0-15.5); LYMPHOCYTES % (AUTO) 15.9 % (13-45); MEAN CORPUSCULAR HEMOGLOBIN 31.3 pg (27.0-33.4); MEAN CORPUSCULAR HGB CONC 33.7 g/dL (32.0-36.0); MEAN CORPUSCULAR VOLUME 93 fl (80-97); MONOCYTES % (AUTO) 2.7 % (3-13); PLATELET COUNT 291 10^3/uL (150-450); RED BLOOD COUNT 4.39 10^6/uL (3.72-5.28); RED CELL DISTRIBUTION WIDTH 13.8 % (11.5-14.0); SEGMENTED NEUTROPHILS % (AUTO) 80.4 % (42-78); TOTAL CELLS COUNTED % (AUTO) 100 %; WHITE BLOOD COUNT 5.3 10^3/uL (4.0-10.5)
[2017-07-11 17:55] LABS: ALANINE AMINOTRANSFERASE 73 U/L (9-52); ALBUMIN 4.3 g/dL (3.5-5.0); ALCOHOL 128 mg/dL (NONE DETECTED); ALKALINE PHOSPHATASE 83 U/L (38-126); ANION GAP 16 (5-19); ASPARTATE AMINO TRANSFERASE 72 U/L (14-36); BILIRUBIN,DIRECT 0.4 mg/dL (0.0-0.4); BILIRUBIN,TOTAL 0.5 mg/dL (0.2-1.3); BLOOD UREA NITROGEN 22 mg/dL (7-20); CALCIUM 9.4 mg/dL (8.4-10.2); CARBON DIOXIDE 20 mmol/L (22-30); CHLORIDE 106 mmol/L (98-107); GLUCOSE 163 mg/dL (75-110); POTASSIUM 4.1 mmol/L (3.6-5.0); SODIUM 142.3 mmol/L (137-145); TOTAL PROTEIN 7.1 g/dL (6.3-8.2)
[2017-07-11 17:56] LABS: ACETAMINOPHEN < 10 ug/mL (10-30); SALICYLATE < 1.0 mg/dL (2.0-20.0)
--- NOTE | 2017-07-11 18:15 | EKG REPORT ---
SEVERITY:- BORDERLINE ECG - SINUS TACHYCARDIA PROBABLE LEFT ATRIAL ABNORMALITY : Confirmed by: Mehrdad Curtis MD 11-Jul-2017 18:14:38
[2017-07-11] MEDS ORDERED: PROMETHAZINE HCL INJ 50 MG/1 ML VIAL IM PRN (18:40)
[2017-07-11] MEDS ORDERED: CLONIDINE HCL 0.1 MG TABLET PO ONE ×2 (18:40→22:19)
[2017-07-11] MEDS ORDERED: FENTANYL CITRATE INJ/PF 100 MCG/2 ML AMPUL IM ONE (18:40)
[2017-07-11 18:41] LABS: APPEARANCE,URINE CLEAR; COLOR,URINE STRAW; GLUCOSE, URINE 50 mg/dL (NEGATIVE)
[2017-07-11 18:42] LABS: BILIRUBIN,URINE NEGATIVE (NEGATIVE); KETONES,URINE NEGATIVE (NEGATIVE); LEUKOCYTE ESTERASE,URINE NEGATIVE (NEGATIVE); NITRITE,URINE NEGATIVE (NEGATIVE); PROTEIN,URINE 30 mg/dL (NEGATIVE); URINE SPECIFIC GRAVITY 1.012; UROBILINOGEN,URINE NEGATIVE mg/dL (<2.0)
--- NOTE | 2017-07-11 18:44 | ER Document Report ---
ED General - General TRAVEL OUTSIDE OF THE [place] IN LAST 30 DAYS: No - HPI Onset: Last week Onset/Duration: Gradual <DAVE GLASS - Last Filed: 07/12/17 02:04> <MESHA MARTÍNEZ - Last Filed: 07/12/17 09:40> <SHONA FERNANDES - Last Filed: 07/12/17 10:03> - General Chief Complaint: Psych Problem Stated Complaint: PSYCH EVAL/SUICIDAL IDEATION Time Seen by Provider: 07/11/17 18:32 Notes: History of present illness-61 years old female with chronic pain syndrome, takes multiple pain medications, for hip pain and knee pain, sees pain medication refused to give any refill of pain medications. Also claimed that her surgery for hip is scheduled next week. Since she does not have any pain medication she was arguing with her , and told her that she wants to kill herself. When I asked upon why she said she could not tolerate this pain anymore, it is not worth living anymore. Therefore she wants to end her life. No previous attempts. REVIEW OF SYSTEMS: CONSTITUTIONAL : Denies fever, chills, or sweats. Denies recent illness. EENT: Denies eye, ear, throat, or mouth pain or symptoms. Denies nasal or sinus congestion or discharge. Denies throat, tongue, or mouth swelling or difficulty swallowing. CARDIOVASCULAR: Denies chest pain. Denies palpitations or racing or irregular heart beat. Denies ankle edema. RESPIRATORY: Denies cough, cold, or chest congestion. Denies shortness of breath, difficulty breathing, or wheezing. GASTROINTESTINAL: Denies abdominal pain or distention. Denies nausea, vomiting , or diarrhea. Denies blood in vomitus, stools, or per rectum. Denies black, tarry stools. Denies constipation. GENITOURINARY: Denies difficulty urinating, painful urination, burning, frequency, blood in urine, or discharge. FEMALE GENITOURINARY: Denies vaginal bleeding, heavy or abnormal periods, irregular periods. Denies vaginal discharge or odor. MUSCULOSKELETAL: Denies back or neck pain or stiffness. Denies joint pain or swelling. SKIN: Denies rash, lesions or sores. HEMATOLOGIC : Denies easy bruising or bleeding. LYMPHATIC: Denies swollen, enlarged glands. NEUROLOGICAL: Denies confusion or altered mental status. Denies passing out or loss of consciousness. Denies dizziness or lightheadedness. Denies headache. Denies weakness or paralysis or loss of use of either side. Denies problems with gait or speech. Denies sensory loss, numbness, or tingling. Denies seizures. PSYCHIATRIC: Denies anxiety or stress. ALL OTHER SYSTEMS REVIEWED AND NEGATIVE. PHYSICAL EXAMINATION: GENERAL: Well-appearing, well-nourished and in no acute distress. Obesity HEAD: Atraumatic, normocephalic. EYES: Pupils equal round and reactive to light, extraocular movements intact, conjunctiva are normal. ENT: Nares patent, oropharynx clear without exudates. Moist mucous membranes. NECK: Normal range of motion, supple without lymphadenopathy LUNGS: Breath sounds clear to auscultation bilaterally and equal. No wheezes rales or rhonchi. HEART: Regular rate and rhythm without murmurs ABDOMEN: Soft, nontender, nondistended abdomen. No guarding, no rebound. No masses appreciated. Female : deferred Musculoskeletal: Normal range of motion, no pitting or edema. No cyanosis. NEUROLOGICAL: Cranial nerves grossly intact. Normal speech, normal gait. Normal sensory, motor exams PSYCH: Depressed and suicidal. SKIN: Warm, Dry, normal turgor, no rashes or lesions noted. Dictation was performed using [employer] voice recognition software (DAVE GLASS) - Related Data Allergies/Adverse Reactions: hydrocodone [Hydrocodone] Allergy (Severe, Verified 18 16:26) sertraline HCl [From Zoloft] Allergy (Severe, Verified 18 16:26) hives, resp arrest propranolol HCl [From Inderal] Allergy (Intermediate, Verified 07/11/17 16:26) Hives ketorolac [From Toradol] Allergy (Verified 07/11/17 16:26) lamotrigine [From Lamictal] Allergy (Verified 07/11/17 16:26) ondansetron Allergy (Verified 07/11/17 16:26) oxycodone Allergy (Verified 07/11/17 16:26) Hives propranolol Allergy (Verified 07/11/17 16:26) Past Medical History - Social History Smoking Status: Unknown if Ever Smoked Chew tobacco use (# tins/day): No Frequency of alcohol use: Occasional Drug Abuse: None Family History: Arthritis, CVA, Hyperlipidemia, Hypertension, Malignancy, Thyroid Disfunction. denies: CAD, COPD Patient has suicidal ideation: Yes Patient has homicidal ideation: No - Past Medical History Cardiac Medical History: Reports: Hx Hypercholesterolemia, Hx Hypertension Pulmonary Medical History: Reports: Hx Asthma Neurological Medical History: Reports: Hx Cerebrovascular Accident, Hx Migraine Endocrine Medical History: Reports: Hx Diabetes Mellitus Type 2 - borderline diet controlled, Hx Hypothyroidism - Thyroid removed Renal/ Medical History: Reports: Hx Kidney Stones, Hx Ovarian Cysts. Denies: Hx Peritoneal Dialysis GI Medical History: Reports: Hx Gastroesophageal Reflux Disease, Hx Irritable Bowel Musculoskeltal Medical History: Reports Hx Arthritis, Reports Hx Musculoskeletal Deformity, Reports Hx Musculoskeletal Trauma Psychiatric Medical History: Reports: Hx Bipolar Disorder, Hx Depression, Hx Schizophrenia Past Surgical History: Reports: Hx Abdominal Surgery - Ex Lap, Hx Appendectomy - Ex Lap, Hx Section, Hx Gynecologic Surgery - hyst, Hx Hysterectomy, Hx Thyroid Surgery, Hx Tonsillectomy - Immunizations Immunizations up to date: Yes Hx Diphtheria, Pertussis, Tetanus Vaccination: Yes Hx Pneumococcal Vaccination: 12/15/15 <DAVE GLASS - Last Filed: 07/12/17 02:04> Review of Systems <DAVE GLASS - Last Filed: 07/12/17 02:04> <MESHA MARTÍNEZ - Last Filed: 07/12/17 09:40> <SHONA FERNANDES - Last Filed: 07/12/17 10:03> - Review of Systems Notes: As per history of complaint (DAVE GLASS) - Vital signs Vitals: Temp Pulse Resp BP Pulse Ox 98.5 F 116 H 26 H 195/112 H 98 07/11/17 16:28 07/11/17 16:28 07/11/17 16:28 07/11/17 16:28 07/11/17 16:28 Course - Laboratory Result Diagrams: 07/11/17 17:16 07/11/17 17:16 <DAVE GLASS - Last Filed: 07/12/17 02:04> - Laboratory Result Diagrams: 07/11/17 17:16 07/11/17 17:16 <MESHA MARTÍNEZ - Last Filed: 07/12/17 09:40> - Laboratory Result Diagrams: 07/11/17 17:16 07/11/17 17:16 <SHONA FERNANDES - Last Filed: 07/12/17 10:03> - Vital Signs Vital signs: Temp Pulse Resp BP Pulse Ox 98.5 F 74 20 151/89 H 96 07/12/17 06:00 07/12/17 06:00 07/11/17 22:15 07/12/17 06:00 07/12/17 06:00 - Laboratory Laboratory results interpreted by me: 07/11/17 07/11/17 07/11/17 17:16 17:16 17:55 Seg Neutrophils % 80.4 H Monocytes % 2.7 L Carbon Dioxide 20 L BUN 22 H Glucose 163 H AST 72 H ALT 73 H Urine Protein 30 H Urine Glucose (UA) 50 H Salicylates < 1.0 L Acetaminophen < 10 L Discharge <DAVE GLASS - Last Filed: 07/12/17 02:04> <MESHA MARTÍNEZ - Last Filed: 07/12/17 09:40> <SHONA FERNANDES - Last Filed: 07/12/17 10:03> - Discharge Clinical Impression: Suicidal ideation, Chronic pain syndrome Condition: Stable Disposition: HOME, SELF-CARE Additional Instructions: NARCOTIC / OPIOD ABUSE/DEPENDENCY: Narcotics and opiods are pain-relieving drugs that are often abused. They are addicting. Narcotics cause euphoria, but it often takes increasing amounts to "feel good" and avoid withdrawal symptoms. Overdose of narcotics causes small pupils, coma, and decreased breathing. It's a common cause of . Purity of street narcotics is unpredictable. Injection of narcotics is risky for abscesses, endocarditis (heart infection), pneumonia, and AIDS. Withdrawal from narcotics causes goose bumps, watery mouth, sweating, nasal congestion, muscle aches, abdominal cramps, vomiting, and diarrhea. There 's often restlessness and confusion. Treatment programs are available, but you must make the decision to quit. Medication (such as clonidine) can be prescribed to control the symptoms of withdrawal. FOLLOW-UP CARE: Please follow up your doctors with discuss alternate assistance for pain management and reengage previous coping skills you used the last time you removed all opioids from your pain management regiment. If you experience worsening or a significant change in your symptoms, notify the physician immediately or return to the Emergency Department at any time for re-evaluation. Referrals: YEE LEONARD PA-C [Primary Care Provider] - Follow up as needed
[2017-07-11 18:50] LABS: URINE AMPHETAMINES SCREEN NEGATIVE; URINE BARBITURATES SCREEN NEGATIVE; URINE BENZODIAZEPINES SCREEN UNCONFIRMED POSITIVE; URINE COCAINE SCREEN NEGATIVE; URINE MARIJUANA (THC) SCREEN NEGATIVE; URINE METHADONE SCREEN NEGATIVE; URINE PHENCYCLIDINE SCREEN NEGATIVE
[2017-07-11] MEDS ORDERED: ALPRAZOLAM 0.5 MG TABLET PO ONE (22:19)
[2017-07-12] MEDS ORDERED: OXYCODONE-ACETAMINOPHEN 5-325 MG TABLET PO ONE (00:20)
--- NOTE | 2017-07-12 10:09 | ER Document Report ---
Doctor's Note Notes: 07/12/17 10:08 Rounds: Chart reviewed and patient interviewed. Patient says she is not truly suicidal. She only said that because of the chronic pain that she is having in her knee. She is scheduled for surgery by Dr. Pinedo on Saturday. Says she thinks she can make it until then. Labs showed the patient had a blood alcohol of 128 when she was admitted. Positive benzos on her drug screen. Other labs were all essentially normal. Vital signs were all normal except for very slight elevation of blood pressure at 151/89. Patient appears to be medically stable for transfer or discharge. My understanding is the patient is going to be discharged this morning. Vinny Anna MD
--- NOTE | 2017-07-12 10:13 | ER Document Report ---
Doctor's Note Notes: 07/12/17 10:10 Rounds: Chart reviewed and patient interviewed. Patient is very familiar to me as I saw her yesterday. She is overdosed on Zoloft 700 mg and then a couple of trazodone's. She had a persistent tachycardia yesterday which improved to only a tachycardia with activity after IV fluid yesterday. Patient also had some confusion as well as discoordination. She says her confusion and dizziness is better although she does feel a little bit off balance when she tries to walk. At rest, her heart rate is about 90-100, but just standing up and walking to the end of the bed, her heart rate goes up to 130. She seems a little unsteady on her feet, as well. I repeated her EKG and it shows a normal sinus rhythm at 91 bpm an no abnormalities. No ST or T-wave changes. I am going to repeat some labs and give the patient another couple of liters of saline to try to flush her out some more and observe her through the day. Vinny Anna MD
[2017-07-12 10:32] VITALS: BP 150/90
== END 2017-07-12 10:25 | disposition home or self-care (01) ==
LOC: ER 16:24
DX: G89.4 Chronic pain syndrome (principal); F32.9 Major depressive disorder, single episode, unspecified; R45.851 Suicidal ideations; I10 Essential (primary) hypertension; J45.909 Unspecified asthma, uncomplicated; Z88.5 Allergy status to narcotic agent; Z88.8 Allergy status to other drugs, medicaments and biological substances
CPT/HCPCS: 93005; 99284; 96372; 36415; 80307 ×4; 85025; 80053; 81001; 93010; A9270 ×3; J3010

== ENCOUNTER 2017-07-14 06:20 | Emergency (ER) | payer MEDICARE, MEDICAID ==
[2017-07-14 06:26] VITALS: BP 150/104
== END 2017-07-14 07:02 | disposition left against medical advice (07) ==
LOC: ER 06:20
DX: Z53.21 Procedure and treatment not carried out due to patient leaving prior to being seen by health care provider (principal)

== ENCOUNTER 2017-07-15 08:54 | Inpatient (IN) | payer MEDICARE, MEDICAID ==
--- NOTE | 2017-07-15 07:46 | Physician Advisory Note ---
Physician Advisor ProgressNote .: Pursuant to the plan for [facility], I have reviewed the medical record for this patient. Physician Advisor Statement: Status: Attending, please do all of either #1 or #2 below: 1A. Do surgery in Outpatient status - AND B. Change to Inpatient status on POD #1 if patient is not safe to go home then (& document the reason(s) for that) - OR 2A. Document in H&P (or addendum to H&P, or first note) that I FULLY EXPECT pt to require at least 2 nights of hospital care & monitoring post-op at the time of the Inpatient order BECAUSE - Morbid obesity w/BMI 36.6?, schizophrenia & bipolar d/o?, continued sciatica?, opioid dependence affecting p-op pain mgmt & progress w/PT, ... ? - "Pt usually on Lasix & HCTZ for , which increases risk for post-op acute pulmonary edema with typical fluid shifts of surgery"? - ECHO 2014 shows diastolic dysfunction - does she have a dx of "Chronic Diastolic CHF"? - AND B. If pt unexpectedly recovers so quickly that d/c is indeed safe after 1 MN in hospital after all, Document in DCSummary that I WAS VERY SURPRISED that pt improved so quickly, I didnt expect pt to have any chance of d/c this soon, . What still needs to be documented by attending to support surgical necessity: 1. What nonsurgical or conservative options have been tried for this knee ( Choose ALL that apply): A. NSAIDS or Analgesics What, how much, & for how long has patient used them ? (or not tolerated due to ) - Meds list includes baclofen, Ibuprofen 800mg, Embeda (morphine/ naltrexone), Endocet, naloxone, oxycontin, Voltaren 1% gel, prednisone ... - which for knee? B. Flexibility and Muscle Strengthening exercises (can be a home exercise program) C. PT (or unable to tolerate PT due to ) D. Assistive device use (cane, walker, brace) What? How long? E. Therapeutic injections - Pt declined. F. Weight loss attempts (if appropriate) - describe: VS: G. 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 The above treatments have not proven successful, & this patient continues with (Choose ALL that apply): A. Pain in joint at rest (pain rating scale: __/10) - is this what is ? B. Pain in joint with activity (pain rating scale: __/10) C. Pain iin joint with weight bearing (pain rating scale: __/10) 3. Pain or functional disability from injury due to trauma or arthritis of the joint interferes with these ADLs (Choose ALL that apply): A. Standing B. Walking C. Bathing D. Cooking E. Squatting F. Climbing stairs G. Difficulty getting up when seated a long time - Nurse pre-op eval note indicates pt unable to walk >1 mile, & limited quite a lot with lifting/carrying groceries, bending/kneeling/stooping, & chores like vacuuming/yardwork. 4. Radiologic findings pre-op of this knee include (Choose ALL that apply): A. Subchondral cysts B. Subchondral sclerosis C. Periarticular osteophytes D. Joint space narrowing / endstage joint disease E. Joint subluxation F. AVN / osteonecrosis Thanks! CK
[~2017-07-15 08:54] MED LIST changes: +BUPIVACAINE INJ/PF LIPOSOME/PF 266 MG/20 ML SDV INJ PRN; +CEFAZOLIN INJ 1 GM VIAL IV PRN; +IBUPROFEN 800 MG in DEXTROSE 5%-WATER 250 ML IV PRN; +LACTATED RINGERS 1000 ML IV PRN; +LANSOPRAZOLE 15 MG TAB.RAP.DR PO PRN; +LIDOCAINE 0.5% INJ-PF (5 MG/ML) 50 ML SDV SUBCUT PRN; -LIDOCAINE 1% INJ-PF (10 MG/ML) 30 ML SDV ONE; +OXYCODONE HCL SR 10 MG TABLET PO PRN; +TETRACAINE HCL/PF 20MG/2ML AMPULE (SPINAL) ONE; +VANCOMYCIN HCL 1,000 MG in DEXTROSE 5%-WATER 250 ML IV PRN
[2017-07-26] MEDS ORDERED: IBUPROFEN 800 MG/NS 250 ML IV PRN ×2 (10:24)
[2017-07-29] MEDS ORDERED: LANSOPRAZOLE 15 MG TAB.RAP.DR PO PRN (05:00)
[2017-07-29] MEDS ORDERED: VANCOMYCIN HCL 1,000 MG in NORMAL SALINE 250 ML IV PRN (05:00)
[2017-07-29] MEDS ORDERED: BUPIVACAINE INJ/PF LIPOSOME/PF 266 MG/20 ML SDV IJ PRN (05:00)
[2017-07-29] MEDS ORDERED: LIDOCAINE 0.5% INJ-PF (5 MG/ML) 50 ML SDV SUBCUT PRN (05:00)
[2017-07-29] MEDS ORDERED: IBUPROFEN 800 MG in DEXTROSE 5%-WATER 250 ML IV PRN (05:00)
[2017-07-29] MEDS ORDERED: LACTATED RINGERS 1000 ML IV PRN (05:00)
[2017-07-29] MEDS ORDERED: SCOPOLAMINE HYDROBROMIDE 1.5 MG PATCH.TD72 TOP PRN (05:00)
[2017-07-29] MEDS ORDERED: CEFAZOLIN INJ 1 GM VIAL IV PRN (05:00)
[2017-07-29] MEDS ORDERED: VANCOMYCIN HCL 1,000 MG in DEXTROSE 5%-WATER 250 ML IV PRN (05:00)
[2017-07-29] MEDS ORDERED: OXYCODONE HCL SR 10 MG TABLET PO PRN (05:00)
[2017-07-29] MEDS ORDERED: THROMBIN (BOVINE) TOPICAL 20000 UNIT VIAL ONE (07:30)
[2017-07-29] MEDS ORDERED: BUPIVACAINE INJ/PF LIPOSOME/PF 266 MG/20 ML SDV ONE (07:30)
[2017-07-29] MEDS ORDERED: THROMBIN (BOVINE) 5000 UNIT EPITAXIS KIT ONE (07:30)
[2017-07-29] MEDS ORDERED: FENTANYL CITRATE INJ/PF 100 MCG/2 ML AMPUL ONE ×3 (09:02→11:46)
[2017-07-29] MEDS ORDERED: LIDOCAINE 2% INJ-PF (20 MG/ML) 10 ML AMPUL ONE (09:02)
[2017-07-29] MEDS ORDERED: PROPOFOL INJ 200 MG/20 ML VIAL IV ONE (09:02)
[2017-07-29] MEDS ORDERED: TRANEXAMIC ACID INJ/PF 1,000 MG/10 ML SDV IV ONE ×2 (09:02→13:00)
[2017-07-29] MEDS ORDERED: MIDAZOLAM 2 MG/2 ML INJ ONE ×2 (09:02→10:47)
[2017-07-29] MEDS ORDERED: ACETAMINOPHEN 100 ML IV ONE (09:02)
[2017-07-29] MEDS ORDERED: ONDANSETRON HCL INJ/PF 4 MG/2 ML SDV ONE (09:03)
[2017-07-29] MEDS ORDERED: PROMETHAZINE HCL INJ 25 MG/1 ML VIAL IV PRN ×2 (10:41)
[2017-07-29] MEDS ORDERED: FENTANYL CITRATE INJ/PF 100 MCG/2 ML AMPUL IV PRN ×3 (10:41)
[2017-07-29] MEDS ORDERED: DIPHENHYDRAMINE HCL 50 MG/ML VIAL IV PRN ×2 (10:41→11:25)
[2017-07-29] MEDS ORDERED: MEPERIDINE HCL/PF INJ 25 MG/1 ML DISP.SYRIN IV PRN (10:41)
--- NOTE | 2017-07-29 11:24 | Operative Report ---
Operative Report DATE OF SURGERY: 07/29/17 PREOPERATIVE DIAGNOSIS: Right knee arthritis OPERATION: Right knee arthroplasty SURGEON: EMCHE CLIFFORD ANESTHESIA: Spinal TISSUE REMOVED OR ALTERED: Bone to pathology ESTIMATED BLOOD LOSS: 100 PROCEDURE: Implants used: Femur: Rashida triathlon #5 CR femur Tibia: 4 tibia Tibial liner: 9 mm CS insert Patella: 35 mm oval patella Procedure with the patient supine on the operating table the right the limb is prepped and draped in a sterile fashion. The limb was elevated for exsanguination and the tourniquet inflated to 280 torr. A standard midline median parapatellar approach the knee is taken. Access is gained to the femoral canal through the intercondylar notch. Intramedullary alignment instrumentation used to resect 10 mm of distal femur in 5 of valgus. Sizing guide indicated a size 5 femur. Appropriate cutting jig is then used to fashion anterior posterior and chamfer cuts. A trial reduction femurs performed and this is judged to be adequate. Attention was next turned to the tibia. Using an extra medullary alignment system 9 millimeters was resected off the lateral tibial plateau. This is sized to a size 4 tibia. A trial reduction was now performed with a 5 femur and a for tibia using a 9 millimeters spacer. It is full extension and central patellofemoral tracking. The articular surface the patella was next resected using an oscillating saw. All trial implants were removed. Polymethylmethacrylate is mixed and used to cement the above implants in place. On adequate curing the cement excess cement was removed the tourniquet was deflated hemostasis obtained the wound is then closed in layers using interrupted Vicryl followed by franky. A sterile compressive dressing was applied and the patient returned to recovery room in satisfactory condition.
[2017-07-29] MEDS ORDERED: ONDANSETRON HCL INJ/PF 4 MG/2 ML SDV IV PRN (11:25)
[2017-07-29] MEDS ORDERED: ONDANSETRON 4 MG TAB.RAPDIS PO PRN (11:25)
[2017-07-29] MEDS ORDERED: ACETAMINOPHEN 325 MG TABLET PO PRN (11:25)
[2017-07-29] MEDS ORDERED: RINGERS SOLUTION,LACTATED 1,000 ML IV PRN (11:25)
[2017-07-29] MEDS ORDERED: MAG HYDROX/AL HYDROX/SIMETH SUSP 30 ML UDCUP PO PRN (11:25)
[2017-07-29] MEDS ORDERED: MORPHINE SULFATE 10 MG/ML INJ IV PRN ×2 (11:25)
[2017-07-29] MEDS ORDERED: ZOLPIDEM TARTRATE 5 MG TABLET PO PRN (11:25)
--- NOTE | 2017-07-29 12:10 | RADIOLOGY REPORT (SQ) ---
EXAM DESCRIPTION: KNEE RIGHT 2 VIEWS COMPLETED DATE/TIME: 07/29/2017 11:53 am REASON FOR STUDY: Post OP -Long Cassette in PACU M17.11 UNILATERAL PRIMARY OSTEOARTHRITIS, RIGHT KN EE COMPARISON: 09/29/2012. NUMBER OF VIEWS: Two view(s). TECHNIQUE: Digital radiographic images of the right knee post-procedure. LIMITATIONS: None. FINDINGS: BONES: No worrisome or unexpected findings post-procedure. DEVICE: Total knee arthroplasty SOFT TISSUES: No worrisome findings. Expected postoperative soft tissue changes. IMPRESSION: SATISFACTORY POSTOPERATIVE RIGHT KNEE. TECHNICAL DOCUMENTATION: JOB ID: [id number] [employer]- All Rights Reserved Reading location - IP/workstation name: [email or web address]
[2017-07-29] MEDS: MORPHINE SULFATE 10 MG/ML INJ IV PRN ×4 (13:26→21:28)
[2017-07-29] MEDS: PREGABALIN 75 MG CAPSULE PO SCH (17:39)
[2017-07-29] MEDS: SENNOSIDES/DOCUSATE 8.6-50 MG 1 EACH TABLET PO SCH (17:40)
[2017-07-29] MEDS: OXYCODONE HCL IR 5 MG TABLET PO PRN ×2 (17:40→23:24)
[2017-07-29] MEDS: IBUPROFEN 800 MG in NORMAL SALINE 250 ML IV SCH (17:51)
[2017-07-29] MEDS ORDERED: (PENDING PHARMACY ID) (Clonidine Hcl [Clonidine Hcl] 0.3 MG) PO SCH (18:00)
[2017-07-29] MEDS: OXYCODONE HCL SR 10 MG TABLET PO SCH (21:27)
[2017-07-29] MEDS: CLONIDINE HCL 0.1 MG TABLET PO SCH (21:28)
[2017-07-29] MEDS ORDERED: MORPHINE SULFATE PO SCH (22:00)
[2017-07-29] MEDS ORDERED: NALTREXONE PO SCH (22:00)
[2017-07-29] MEDS ORDERED: VANCOMYCIN HCL 1,000 MG in NORMAL SALINE 250 ML IV ONE (23:25)
[2017-07-30] MEDS: IBUPROFEN 800 MG in NORMAL SALINE 250 ML IV SCH ×2 (01:34→10:51)
[2017-07-30] MEDS: MORPHINE SULFATE 10 MG/ML INJ IV PRN ×2 (01:50→04:33)
[2017-07-30] MEDS: LEVOTHYROXINE SODIUM 0.025 MG TABLET PO SCH (05:42)
[2017-07-30] MEDS: LANSOPRAZOLE 30 MG TAB.RAP.DR PO SCH (05:42)
[2017-07-30 06:28] LABS: HEMATOCRIT 31.2 % (36.0-47.0); HEMOGLOBIN 10.5 g/dL (12.0-15.5); MEAN CORPUSCULAR HGB CONC 33.7 g/dL (32.0-36.0); MEAN CORPUSCULAR VOLUME 92 fl (80-97); PLATELET COUNT 294 10^3/uL (150-450); RED CELL DISTRIBUTION WIDTH 12.8 % (11.5-14.0); WHITE BLOOD COUNT 14.2 10^3/uL (4.0-10.5)
[2017-07-30 06:38] LABS: ANION GAP 6 (5-19); BLOOD UREA NITROGEN 7 mg/dL (7-20); CALCIUM 8.7 mg/dL (8.4-10.2); CARBON DIOXIDE 33 mmol/L (22-30); CHLORIDE 97 mmol/L (98-107); GLUCOSE 112 mg/dL (75-110); POTASSIUM 3.2 mmol/L (3.6-5.0); SODIUM 136.1 mmol/L (137-145)
--- NOTE | 2017-07-30 06:40 | PDOC PROGRESS REPORT ---
Subjective Progress Note for:: 07/30/17 Reason For Visit: RIGHT KNEE ARTHRITIS 61-year-old white female postop day 1 right knee arthroplasty for osteoarthritis. Patient did not receive physical therapy because of a long- acting tetracaine spinal. Patient complaining of pain overnight. She is requesting increasing her dose of narcotic and his transition from oxycodone to Percocet. Patient had been in pain management in our office and had been discharged because of noncompliance with the contract. Pain management will continue to be an issue throughout the postoperative period. Physical Exam Vital Signs: Temp Pulse Resp BP Pulse Ox 36.8 C 91 17 135/77 H 95 07/30/17 04:23 07/30/17 04:23 07/30/17 04:23 07/30/17 04:23 07/30/17 04:23 Intake & Output 07/28/17 07/29/17 07/30/17 06:59 06:59 06:59 Intake Total 5586 Output Total 3700 Balance 1886 Weight 106 kg General appearance: PRESENT: mild distress Head exam: PRESENT: normocephalic Respiratory exam: PRESENT: unlabored Cardiovascular exam: PRESENT: RRR Pulses: PRESENT: +1 pedal pulses bilateral GI/Abdominal exam: PRESENT: soft Rectal exam: PRESENT: deferred Extremities exam: PRESENT: other - Right knee dressing clean dry and tach. Minimal pedal edema. Distal neurovascular examination is intact. Neurological exam: PRESENT: alert, awake, oriented to person, oriented to place , oriented to time, oriented to situation. ABSENT: motor sensory deficit Psychiatric exam: PRESENT: appropriate affect, normal mood. ABSENT: homicidal ideation, suicidal ideation Skin exam: PRESENT: dry, intact, warm. ABSENT: cyanosis, rash Results Laboratory Results: 07/30/17 05:43 07/29/17 07/30/17 08:08 05:43 WBC 14.2 H RBC 3.40 L Hgb 10.5 L Hct 31.2 L MCV 92 MCH 31.0 MCHC 33.7 RDW 12.8 Plt Count 294 Potassium 3.1 L Impressions: Knee X-Ray 07/29/17 11:26 IMPRESSION: SATISFACTORY POSTOPERATIVE RIGHT KNEE. Status: Imported from PACS Assessment & Plan - Diagnosis (1) Arthritis of right knee Is this a current diagnosis for this admission?: Yes Plan: 61-year-old white female postop day 1 right knee arthroplasty. Patient is not a candidate for discharge home today on outpatient surgical basis because of her lack of progress with physical therapy yesterday. Will continue to focus on function today with physical therapy and anticipate discharge home tomorrow with home health services. - Time Time Spent with patient: 15-24 minutes Anticipated discharge: Home with Homehealth Within: within 24 hours
--- NOTE | 2017-07-30 07:06 | Physician Advisory Note ---
Physician Advisor ProgressNote .: Pursuant to the plan for [facility], I have reviewed the medical record for this patient. Physician Advisor Statement: Please consider documenting, if you agree: 1. ? - "Acute blood loss anemia due to TKA, not significantly worse than could be expected; baseline Hgb= ___" [13s?] 2. Additional details of surgical necessity, as per previous Physician Advisor note. Status: Appropriately Inpt status. Requiring very frequent prn IV morphine for pain control, which attending could expect pre-op given her hx w/pain mgmt issues. Unable to work w/PT on day of surgery due to anesthesia effects. Not yet safe for d/c. Decision-making very nicely documented by surgeon today. Thanks! CK
[2017-07-30] MEDS: OXYCODONE-ACETAMINOPHEN 5-325 MG TABLET PO PRN ×3 (08:09→21:24)
[2017-07-30] MEDS: OXYCODONE HCL IR 5 MG TABLET PO PRN ×3 (08:10→21:24)
[2017-07-30] MEDS: FENOFIBRATE NANOCRYSTALLIZED 145 MG TABLET PO SCH (09:15)
[2017-07-30] MEDS: CLONIDINE HCL 0.1 MG TABLET PO SCH ×2 (09:17→21:24)
[2017-07-30] MEDS: SENNOSIDES/DOCUSATE 8.6-50 MG 1 EACH TABLET PO SCH ×2 (09:18→17:03)
[2017-07-30] MEDS: OXYCODONE HCL SR 10 MG TABLET PO SCH ×2 (09:18→21:24)
[2017-07-30] MEDS: PREGABALIN 75 MG CAPSULE PO SCH ×2 (09:18→17:03)
[2017-07-30] MEDS ORDERED: FENOFIBRATE PO SCH (10:00)
[2017-07-30] MEDS ORDERED: LOSARTAN POTASSIUM 25 MG TABLET PO SCH (10:00)
[2017-07-30] MEDS ORDERED: AMLODIPINE BESYLATE 2.5 MG TABLET PO SCH (10:00)
[2017-07-30] MEDS ORDERED: FUROSEMIDE 20 MG TABLET PO SCH (10:00)
[2017-07-30] MEDS ORDERED: ASPIRIN 81 MG TABLET, ENT COATED PO SCH (10:00)
[2017-07-30] MEDS ORDERED: HYDROCHLOROTHIAZIDE PO SCH (10:00)
[2017-07-30] MEDS ORDERED: PRENATAL VITAMIN W DHA CAPSULE PO SCH (10:00)
[2017-07-30] MEDS ORDERED: HYDROCHLOROTHIAZIDE 12.5 MG TABLET PO SCH (10:00)
[2017-07-30] MEDS: MORPHINE SULFATE 10 MG/ML INJ IM PRN ×2 (17:03→20:08)
[2017-07-30] MEDS ORDERED: IBUPROFEN 800 MG in DEXTROSE 5%-WATER 250 ML IV SCH (18:00)
[2017-07-31] MEDS: MORPHINE SULFATE 10 MG/ML INJ IM PRN (02:00)
[2017-07-31] MEDS: OXYCODONE HCL IR 5 MG TABLET PO PRN ×2 (03:29→08:47)
[2017-07-31] MEDS: OXYCODONE-ACETAMINOPHEN 5-325 MG TABLET PO PRN ×2 (03:29→08:47)
[2017-07-31 06:03] LABS: HEMATOCRIT 28.9 % (36.0-47.0); HEMOGLOBIN 9.8 g/dL (12.0-15.5); MEAN CORPUSCULAR HEMOGLOBIN 31.1 pg (27.0-33.4); MEAN CORPUSCULAR HGB CONC 34.1 g/dL (32.0-36.0); MEAN CORPUSCULAR VOLUME 91 fl (80-97); PLATELET COUNT 344 10^3/uL (150-450); RED BLOOD COUNT 3.16 10^6/uL (3.72-5.28); RED CELL DISTRIBUTION WIDTH 13.3 % (11.5-14.0)
[2017-07-31] MEDS: LEVOTHYROXINE SODIUM 0.025 MG TABLET PO SCH (06:07)
[2017-07-31] MEDS: LANSOPRAZOLE 30 MG TAB.RAP.DR PO SCH (06:07)
--- NOTE | 2017-07-31 07:11 | PDOC DISCHARGE SUMMARY ---
General - Admit/Disc Date/PCP Admission Date/Primary Care Provider: 07/29/17 07:25 YEE LEONARD PA-C Discharge Date: 07/31/17 - Discharge Diagnosis (1) Arthritis of right knee Is this a current diagnosis for this admission?: Yes - Additional Information Resuscitation Status: Full Code Discharge Diet: As Tolerated, Regular Discharge Activity: Balance Activity w/Rest, Bedrest, No tub bath Home Medications: Alprazolam [Xanax] 2 mg PO Q8 07/29/17 Amlodipine Besylate [Norvasc 2.5 mg Tablet] 2.5 mg PO DAILY 07/29/17 Clonidine HCl [Catapres 0.1 mg Tablet] 0.1 mg PO Q8 07/29/17 Ezetimibe [Zetia 10 mg Tablet] 10 mg PO DAILY 07/29/17 Hydrochlorothiazide [Hydrodiuril 12.5 mg Capsule] 12.5 mg PO BID@0600,1600 07/29 Hydroxyzine Pamoate [Vistaril 50 mg Capsule] 50 mg PO TID 07/29/17 Ibuprofen [Motrin 800 mg Tablet] 800 mg PO Q12 07/29/17 Levothyroxine Sodium [Synthroid 0.1 mg Tablet] 0.2 mg PO Q6AM 07/29/17 Losartan Potassium [Cozaar 25 mg Tablet] 25 mg PO Q12 07/29/17 Metoprolol Tartrate [Lopressor 50 mg Tablet] 50 mg PO Q12 07/29/17 Morphine Sulfate/Naltrexone [Embeda ER 20-0.8 mg Capsule] 1 cap PO TID 07/29/17 Oxycodone HCl/Acetaminophen [Oxycodone-Acetaminophen 10-325] 1 tab PO Q4HP PRN 07/29/17 Promethazine HCl 25 mg PO Q8HP PRN 07/29/17 Suvorexant [Belsomra] 15 mg PO HSP PRN 07/29/17 Aspirin [Ecotrin 81 mg EC Tablet] 81 mg PO DAILY tabec 07/31/17 Oxycodone HCl [Oxy-Ir 5 mg Tablet] 5 mg PO Q6HP PRN tablet 07/31/17 Oxycodone HCl/Acetaminophen [Percocet 5-325 mg Tablet] 1 tab PO Q6HP PRN tablet 07/31/17 History of Present Illness History of Present Illness: KARLIE SERRANO is a 61 year old female with progressive right knee pain and functional disability secondary osteoarthritis. Patient is admitted for elective right knee arthroplasty. Hospital Course Hospital Course: She is admitted through the operating room and undergoes uncomplicated right knee arthroplasty. She is returned to floor in satisfactory condition. She is not able to participate in physical therapy on the day of surgery because of a long-acting spinal anesthetic. She subsequent make progress on postop day 1 and is ambulating 200 feet. Dressing is changed on postop day 1 the underlying op site dressing is clean dry and intact. There is minimal pedal edema. Patient unable to perform straight leg raise. Physical Exam Vital Signs: Temp Pulse Resp BP Pulse Ox 37.6 C 95 18 145/76 H 92 07/31/17 00:05 07/31/17 00:05 07/31/17 00:05 07/31/17 00:05 07/31/17 00:05 Intake & Output 07/30/17 07/31/17 08/01/17 06:59 06:59 06:59 Intake Total 5586 838 Output Total 3700 Balance 1886 838 Weight 106 kg 105 kg General appearance: PRESENT: no acute distress, well-nourished Head exam: PRESENT: normocephalic Respiratory exam: PRESENT: unlabored Cardiovascular exam: PRESENT: RRR Pulses: PRESENT: +1 pedal pulses bilateral Vascular exam: PRESENT: normal capillary refill GI/Abdominal exam: PRESENT: soft Rectal exam: PRESENT: deferred Musculoskeletal exam: PRESENT: other - Right lower extremity OpSite dressing clean dry and intact. Minimal pedal edema. Distal neurovascular examination is intact. Neurological exam: PRESENT: alert, awake, oriented to person, oriented to place , oriented to time, oriented to situation. ABSENT: motor sensory deficit Psychiatric exam: PRESENT: appropriate affect, normal mood. ABSENT: homicidal ideation, suicidal ideation Skin exam: PRESENT: dry, intact, warm. ABSENT: cyanosis, rash Results Laboratory Results: 07/31/17 05:26 07/30/17 05:43 07/31/17 05:26 WBC 16.0 H RBC 3.16 L Hgb 9.8 L Hct 28.9 L MCV 91 MCH 31.1 MCHC 34.1 RDW 13.3 Plt Count 344 Impressions: Knee X-Ray 07/29/17 11:26 IMPRESSION: SATISFACTORY POSTOPERATIVE RIGHT KNEE. Status: Imported from PACS Qualifiers - * PATEINT BEING DISCHARGED WITH ANY OF THE FOLLOWING DIAGNOSIS?: No VTE patient discharged on overlapping Therapy?: Yes Plan Discharge Plan: Patient to be discharged home with home health nursing, home health physical therapy, wheeled walker, bedside commode. Follow-up with Dr. Pinedo and [facility] for surgery in 2 weeks for staple removal. Time Spent: Less than 30 Minutes
[2017-07-31] MEDS: FENOFIBRATE NANOCRYSTALLIZED 145 MG TABLET PO SCH (08:46)
[2017-07-31 08:51] VITALS: BP 123/73
== END 2017-07-31 09:30 | disposition home health service (06) | DRG 470 ==
LOC: INOR 07-29 07:25 → 4S 07-29 12:42
PROVIDERS: ADMIT Orthopaedic Surgery; ATTEND Orthopaedic Surgery
PROC: 0SRC0J9 Replacement of Right Knee Joint with Synthetic Substitute, Cemented, Open Approach (ICD-10-PCS; principal; 2017-07-29 10:00)
DX: M17.11 Unilateral primary osteoarthritis, right knee (principal); I10 Essential (primary) hypertension; E78.5 Hyperlipidemia, unspecified; E03.9 Hypothyroidism, unspecified; F41.9 Anxiety disorder, unspecified; F32.9 Major depressive disorder, single episode, unspecified; Z86.73 Personal history of transient ischemic attack (TIA), and cerebral infarction without residual deficits; K21.9 Gastro-esophageal reflux disease without esophagitis; Z90.710 Acquired absence of both cervix and uterus; Z79.899 Other long term (current) drug therapy; Z79.82 Long term (current) use of aspirin; M54.9 Dorsalgia, unspecified; Z88.6 Allergy status to analgesic agent; Z88.8 Allergy status to other drugs, medicaments and biological substances
CPT/HCPCS: 01402; 36415; 80048; 84132; 85027; 88305; 88311; 94799; C1713; C1776; C9290; G8978-GP; G8979-GP; G8987-GO; G8988-GO; J0131; J0690; J1741; J2250; J2270; J2405; J2704; J3010; J3370; J3490; J7050; J7060

== ENCOUNTER 2017-07-15 10:58 | Emergency (ER) | payer MEDICARE, MEDICAID, OTHER ==
[2017-07-15 11:10] VITALS: BP 155/116
[2017-07-15] MEDS ORDERED: OXYCODONE-ACETAMINOPHEN 5-325 MG TABLET PO ONE (11:45)
--- NOTE | 2017-07-15 12:01 | ER Document Report ---
ED General - General Chief Complaint: Leg Pain Stated Complaint: BACK PAIN Time Seen by Provider: 07/15/17 11:39 TRAVEL OUTSIDE OF THE [place] IN LAST 30 DAYS: No - HPI Patient complains to provider of: Exacerbation of chronic leg pain Notes: Patient coming in for exacerbation of chronic leg pain. Patient states she was supposed to have surgery today with Dr. Pinedo however was notified by the anesthesia team that her surgery was canceled. Patient states that she was recently seen by her pain management because of the recent surgery that they had canceled her pain regimen and only received enough to last her until yesterday. Patient states she is currently out of her Endocet and also out of her Embeda. Patient states she is try to contact her pain management team however they are currently closed because of the hol. Denies any fever chills nausea vomiting denies any other changes to states she needs her pain medications. - Related Data Allergies/Adverse Reactions: hydrocodone [Hydrocodone] Allergy (Severe, Verified 07/11/17 16:26) sertraline HCl [From Zoloft] Allergy (Severe, Verified 07/11/17 16:26) hives, resp arrest propranolol HCl [From Inderal] Allergy (Intermediate, Verified 07/11/17 16:26) Hives ketorolac [From Toradol] Allergy (Verified 07/11/17 16:26) lamotrigine [From Lamictal] Allergy (Verified 07/11/17 16:26) ondansetron Allergy (Verified 07/11/17 16:26) oxycodone Allergy (Verified 07/11/17 16:26) Hives propranolol Allergy (Verified 07/11/17 16:26) Past Medical History - Social History Smoking Status: Former Smoker Chew tobacco use (# tins/day): No Frequency of alcohol use: Rare Drug Abuse: None Family History: Arthritis, CVA, Hyperlipidemia, Hypertension, Malignancy, Thyroid Disfunction. denies: CAD, COPD Patient has suicidal ideation: No Patient has homicidal ideation: No - Past Medical History Cardiac Medical History: Reports: Hx Hypercholesterolemia, Hx Hypertension Pulmonary Medical History: Reports: Hx Asthma Neurological Medical History: Reports: Hx Cerebrovascular Accident, Hx Migraine Endocrine Medical History: Reports: Hx Diabetes Mellitus Type 2 - borderline diet controlled, Hx Hypothyroidism - Thyroid removed Renal/ Medical History: Reports: Hx Kidney Stones, Hx Ovarian Cysts. Denies: Hx Peritoneal Dialysis GI Medical History: Reports: Hx Gastroesophageal Reflux Disease, Hx Irritable Bowel Musculoskeltal Medical History: Reports Hx Arthritis, Reports Hx Musculoskeletal Deformity, Reports Hx Musculoskeletal Trauma Psychiatric Medical History: Reports: Hx Bipolar Disorder, Hx Depression, Hx Schizophrenia Past Surgical History: Reports: Hx Abdominal Surgery - Ex Lap, Hx Appendectomy - Ex Lap, Hx Section, Hx Gynecologic Surgery - hyst, Hx Hysterectomy, Hx Thyroid Surgery, Hx Tonsillectomy - Immunizations Immunizations up to date: Yes Hx Diphtheria, Pertussis, Tetanus Vaccination: Yes Hx Pneumococcal Vaccination: 12/15/15 Review of Systems - Review of Systems Constitutional: No symptoms reported EENT: No symptoms reported Cardiovascular: No symptoms reported Respiratory: No symptoms reported Gastrointestinal: No symptoms reported Genitourinary: No symptoms reported Female Genitourinary: No symptoms reported Musculoskeletal: Other - Chronic leg pain Skin: No symptoms reported Hematologic/Lymphatic: No symptoms reported Neurological/Psychological: No symptoms reported -: Yes All other systems reviewed and negative Physical Exam - Vital signs Vitals: Temp Pulse Resp BP Pulse Ox 98.8 F 132 H 20 155/116 H 97 07/15/17 11:09 07/15/17 11:09 07/15/17 11:09 07/15/17 11:09 07/15/17 11:09 Interpretation: Normal - General General appearance: Appears well, Alert - HEENT Head: Normocephalic, Atraumatic Eyes: Normal Pupils: PERRL - Respiratory Respiratory status: No respiratory distress Chest status: Nontender Breath sounds: Normal Chest palpation: Normal - Cardiovascular Rhythm: Regular Heart sounds: Normal auscultation Murmur: No - Abdominal Inspection: Normal Distension: No distension Bowel sounds: Normal Tenderness: Nontender Organomegaly: No organomegaly - Back Back: Normal, Nontender - Extremities General upper extremity: Normal inspection, Nontender, Normal color, Normal ROM , Normal temperature General lower extremity: Normal inspection, Normal color, Normal temperature, Normal weight bearing - Ablating with a cane limping - Neurological Neuro grossly intact: Yes Cognition: Normal Orientation: AAOx4 [place] Coma Scale Eye Opening: Spontaneous Vicky Coma Scale Verbal: Oriented Vicky Coma Scale Motor: Obeys Commands Vicky Coma Scale Total: 15 Speech: Normal Motor strength normal: LUE, RUE, LLE, RLE Sensory: Normal - Psychological Associated symptoms: Normal affect, Normal mood - Skin Skin Temperature: Warm Skin Moisture: Dry Skin Color: Normal Course - Re-evaluation Re-evalutation: 07/15/17 14:58 I did try to contact the call center for which the patient had a #4 to discuss the patient's case with her pain management clinic however this was to no avail. I did look at the patient on the [place] database which did show that she would be currently out of her Endocet and also out of her Embeda. I also used the Internet to find the physician's name . I did try to contact her office however message states that they are currently closed because of the . At this time patient is just requesting a pain medication I will give the patient a prescription for her Embeda 2 tablets and I will give the patient a prescription for 6 tablets of her Endocet patient was given 2 tablets of Percocet here. Splinted the patient because of her pain contract I could not give her any more to contact her pain clinics tomorrow as at the office message states that they will be open. Patient was very grateful for her care here and was discharged home. - Vital Signs Vital signs: Temp Pulse Resp BP Pulse Ox 98.8 F 132 H 20 155/116 H 97 07/15/17 11:09 07/15/17 11:09 07/15/17 11:09 07/15/17 11:09 07/15/17 11:09 Discharge - Discharge Clinical Impression: Chronic pain syndrome Condition: Good Disposition: HOME, SELF-CARE Additional Instructions: I have attempted today to call your aircraft painter apprentice through their office and through the answering service provided without any return phone calls or answers. At this time I do have the understanding that you are out of your pain medication I will give you a prescription for 2 day supply and beta 2 tablets and Endocet 6 tablets. We will also give you 2 tablets of Percocet here in the ER. Please make sure to follow-up with your pain management tomorrow as that the answering service states that they will be open. Return to the ER for any other issues. Prescriptions: Morphine Sulfate/Naltrexone [Embeda ER 20-0.8 mg Capsule] 1 each PO DAILY #2 cap.er.po Oxycodone HCl/Acetaminophen [Endocet 10-325 mg Tablet] 1 each PO TID #6 tablet Referrals: YOLANDA HUDDLESTON MD [NO LOCAL MD] - Follow up tomorrow
== END 2017-07-15 11:59 | disposition home or self-care (01) ==
LOC: ER 10:58
DX: G89.4 Chronic pain syndrome (principal); M79.606 Pain in leg, unspecified; I10 Essential (primary) hypertension; J45.909 Unspecified asthma, uncomplicated; Z88.5 Allergy status to narcotic agent; Z88.8 Allergy status to other drugs, medicaments and biological substances; Z87.891 Personal history of nicotine dependence
CPT/HCPCS: 99283; A9270

== ENCOUNTER 2017-07-17 01:14 | Emergency (ER) | payer MEDICARE, MEDICAID, OTHER ==
--- NOTE | 2017-07-17 04:02 | ER Document Report ---
ED General - General Chief Complaint: Chest Pain Stated Complaint: CHEST/LEG PAIN Time Seen by Provider: 07/17/17 03:24 Mode of Arrival: Ambulatory Information source: Patient Notes: 61-year-old female with a history of hypertension, hyperlipidemia, hypothyroid, chronic back and leg pain and previous CVA presents with complaint of right leg pain and chest tightness. She states that she began to feel chest tightness approximately 4 hours prior to arrival. Patient states that tightness is intermittent, without radiation, without diaphoresis or dizziness. She states that recently she has undergone significant stress with being dismissed from pain management and her recent knee surgery for a Matt's cyst removal being canceled. Patient states that she was dismissed from pain management because of her use of the emergency department. She is very upset over being dismissed and is concerned that she is withdrawing from her long-term pain medication of Endocet. Patient states that she talked to the orthopedic surgeon who still agrees to perform her surgery once she is cleared by her psychiatrist. She states she was supposed to see her psychiatrist today but was unable to go because she felt very shaky. Patient has been on pain medication for over 10 years. She denies any fever, chills, nausea, vomiting, shortness of breath, abdominal pain, diarrhea, dysuria, suicidal, homicidal ideation. TRAVEL OUTSIDE OF THE [place] IN LAST 30 DAYS: No - HPI Onset: Just prior to arrival Onset/Duration: Gradual, Intermittent Quality of pain: Other - Tightness Severity: Mild Associated symptoms: Chest pain - Chest tightness. denies: Nonproductive cough , Productive cough, Fever, Headache, Hurts to breath, Leg swelling - Related Data Allergies/Adverse Reactions: hydrocodone [Hydrocodone] Allergy (Severe, Verified 07/11/17 16:26) sertraline HCl [From Zoloft] Allergy (Severe, Verified 07/11/17 16:26) hives, resp arrest propranolol HCl [From Inderal] Allergy (Intermediate, Verified 07/11/17 16:26) Hives ketorolac [From Toradol] Allergy (Verified 07/11/17 16:26) lamotrigine [From Lamictal] Allergy (Verified 07/11/17 16:26) ondansetron Allergy (Verified 07/11/17 16:26) oxycodone Allergy (Verified 07/11/17 16:26) Hives propranolol Allergy (Verified 07/11/17 16:26) Past Medical History - General Information source: Patient - Social History Smoking Status: Former Smoker Frequency of alcohol use: None Drug Abuse: None Lives with: Spouse/Significant other Family History: Arthritis, CVA, Hyperlipidemia, Hypertension, Malignancy, Thyroid Disfunction. denies: CAD, COPD - Past Medical History Cardiac Medical History: Reports: Hx Hypercholesterolemia, Hx Hypertension Pulmonary Medical History: Reports: Hx Asthma Neurological Medical History: Reports: Hx Cerebrovascular Accident, Hx Migraine Endocrine Medical History: Reports: Hx Diabetes Mellitus Type 2 - borderline diet controlled, Hx Hypothyroidism - Thyroid removed Renal/ Medical History: Reports: Hx Kidney Stones, Hx Ovarian Cysts. Denies: Hx Peritoneal Dialysis GI Medical History: Reports: Hx Gastroesophageal Reflux Disease, Hx Irritable Bowel Musculoskeltal Medical History: Reports Hx Arthritis, Reports Hx Musculoskeletal Deformity, Reports Hx Musculoskeletal Trauma Psychiatric Medical History: Reports: Hx Bipolar Disorder, Hx Depression, Hx Schizophrenia Past Surgical History: Reports: Hx Abdominal Surgery - Ex Lap, Hx Appendectomy - Ex Lap, Hx Section, Hx Gynecologic Surgery - hyst, Hx Hysterectomy, Hx Thyroid Surgery, Hx Tonsillectomy - Immunizations Immunizations up to date: Yes Hx Diphtheria, Pertussis, Tetanus Vaccination: Yes Hx Pneumococcal Vaccination: 12/15/15 Review of Systems - Review of Systems Notes: She denies any fever, chills, nausea, vomiting, shortness of breath, abdominal pain, diarrhea, dysuria, suicidal, homicidal ideation. currently complaining of right knee pain, chest tightness. Physical Exam - Vital signs Vitals: Temp Pulse Resp BP Pulse Ox 99 F 100 20 140/97 H 98 07/17/17 01:34 07/17/17 01:34 07/17/17 01:34 07/17/17 01:34 07/17/17 01:34 Interpretation: Normal, Hypertensive, Tachycardic. No: Hypoxic, Febrile - Notes Notes: PHYSICAL EXAMINATION: GENERAL: Well-appearing, well-nourished and in no acute distress. HEAD: Atraumatic, normocephalic. EYES: Pupils equal round and reactive to light, extraocular movements intact, conjunctiva are normal. ENT: Nares patent, oropharynx clear without exudates. Moist mucous membranes. NECK: Normal range of motion, supple without lymphadenopathy LUNGS: Breath sounds clear to auscultation bilaterally and equal. No wheezes rales or rhonchi. HEART: Regular rate and rhythm without murmurs ABDOMEN: Soft, nontender, nondistended abdomen. No guarding, no rebound. No masses appreciated. Female : deferred Musculoskeletal: Crease range of motion of the right knee with mild effusion, no pitting or edema. No cyanosis. NEUROLOGICAL: Cranial nerves grossly intact. Normal speech, normal gait. Normal sensory, motor exams PSYCH: Normal mood, normal affect. SKIN: Warm, Dry, normal turgor, no rashes or lesions noted. Course - Re-evaluation Re-evalutation: 07/17/17 05:10 61-year-old female with a history of hypertension, hyperlipidemia, hypothyroid, chronic back and leg pain and previous CVA presents with complaint of right leg pain and chest tightness. She states that she began to feel chest tightness approximately 4 hours prior to arrival. Patient states that tightness is intermittent, without radiation, without diaphoresis or dizziness. She states that recently she has undergone significant stress with being dismissed from pain management and her recent knee surgery for a Matt's cyst removal being canceled. Patient states that she was dismissed from pain management because of her use of the emergency department.Patient declining cardiac workup. I have had multiple discussions with the patient regarding her chest tightness and she states that she has had a recent cardiac workup and does not want any additional blood work. She states that she knows why her chest hurts and that is because she is no longer on her pain medication. Patient is currently denying suicidal and homicidal ideation. She is scheduled to follow-up with her psychiatrist for clearance of her knee surgery. 07/17/17 05:12 I explained to the patient that the emergency department cannot continue to provide her her chronic pain medications. I do feel for the patient who seems sincere in wanting the surgery. She is very forthcoming with her chronic pain medication and recent trouble with pain management. 07/18/17 05:38 07/18/17 05:40 - Vital Signs Vital signs: Temp Pulse Resp BP Pulse Ox 99 F 100 17 135/92 H 96 07/17/17 01:34 07/17/17 01:34 07/17/17 05:01 07/17/17 05:07/17/17 05:01 Discharge - Discharge Clinical Impression: Chest tightness, Opiate withdrawal, Chronic pain of right knee Condition: Good Disposition: HOME, SELF-CARE Instructions: Chronic Back Pain ([facility]), Chronic Pain Control ([facility]) Prescriptions: Oxycodone HCl/Acetaminophen [Endocet 5-325 Tablet] 1 each PO Q6H #10 tablet
[2017-07-17] MEDS ORDERED: OXYCODONE-ACETAMINOPHEN 5-325 MG TABLET PO ONE (04:07)
[2017-07-17 05:30] VITALS: BP 135/92
--- NOTE | 2017-07-17 09:32 | EKG REPORT ---
SEVERITY:- ABNORMAL ECG - SINUS RHYTHM LEFT ATRIAL ABNORMALITY BORDERLINE LEFT AXIS DEVIATION BORDERLINE T ABNORMALITIES, ANTERIOR LEADS : Confirmed by: Tomi Stapleton 17-Jul-2017 09:31:25
== END 2017-07-17 05:32 | disposition home or self-care (01) ==
LOC: ER 01:14
DX: R07.9 Chest pain, unspecified (principal); F11.23 Opioid dependence with withdrawal; G89.29 Other chronic pain; M25.561 Pain in right knee; E78.00 Pure hypercholesterolemia, unspecified; I10 Essential (primary) hypertension; Z86.73 Personal history of transient ischemic attack (TIA), and cerebral infarction without residual deficits; E11.9 Type 2 diabetes mellitus without complications; E03.9 Hypothyroidism, unspecified; Z87.442 Personal history of urinary calculi; Z90.710 Acquired absence of both cervix and uterus; Z87.891 Personal history of nicotine dependence; Z88.6 Allergy status to analgesic agent
CPT/HCPCS: 93005; 99284; 93010; A9270

== ENCOUNTER 2017-07-20 07:44 | Emergency (ER) | payer MEDICARE, MEDICAID, OTHER ==
--- NOTE | 2017-07-20 07:59 | ER Document Report ---
HPI - HPI Patient complains to provider of: Exacerbation of right groin and knee pain. Onset: Other - Chronic pain Onset/Duration: Persistent, Worse Pain Level: 5 Context: 61-year-old female who has been on opiate pain management for years has been unable to get prescriptions for her pain medicine because her pain management doctor dropped her because she had come to the emergency room. Also her primary care doctor Dr. Cho at [facility] will not prescribe narcotics. She is scheduled for knee surgery on July [address] Clifford. She feels like she has an opiate withdrawal today with nausea, vomiting, shakes, cold sweats. Pulse is 113 and blood pressure 141/104. - REPRODUCTIVE Reproductive: DENIES: : Past Medical History - General Information source: Patient - Social History Smoking Status: Current Every Day Smoker Frequency of alcohol use: None Drug Abuse: None Lives with: Family Family History: Arthritis, CVA, Hyperlipidemia, Hypertension, Malignancy, Thyroid Disfunction - Past Medical History Cardiac Medical History: Reports: Hx Hypercholesterolemia, Hx Hypertension Pulmonary Medical History: Reports: Hx Asthma Neurological Medical History: Reports: Hx Cerebrovascular Accident, Hx Migraine Endocrine Medical History: Reports: Hx Diabetes Mellitus Type 2 - borderline diet controlled, Hx Hypothyroidism - Thyroid removed Renal/ Medical History: Reports: Hx Kidney Stones, Hx Ovarian Cysts. Denies: Hx Peritoneal Dialysis GI Medical History: Reports: Hx Gastroesophageal Reflux Disease, Hx Irritable Bowel Musculoskeltal Medical History: Reports Hx Arthritis, Reports Hx Musculoskeletal Deformity, Reports Hx Musculoskeletal Trauma Psychiatric Medical History: Reports: Hx Bipolar Disorder, Hx Depression, Hx Schizophrenia Past Surgical History: Reports: Hx Abdominal Surgery - Ex Lap, Hx Appendectomy - Ex Lap, Hx Section, Hx Gynecologic Surgery - hyst, Hx Hysterectomy, Hx Thyroid Surgery, Hx Tonsillectomy - Immunizations Immunizations up to date: Yes Hx Diphtheria, Pertussis, Tetanus Vaccination: Yes Hx Pneumococcal Vaccination: 12/15/15 Vertical Provider Document - CONSTITUTIONAL Agree With Documented VS: Yes General Appearance: Mild Distress - INFECTION CONTROL TRAVEL OUTSIDE OF THE [place] IN LAST 30 DAYS: No - HEENT HEENT: Normocephalic - NECK Neck: Supple - RESPIRATORY Respiratory: Breath Sounds Normal, No Respiratory Distress - CARDIOVASCULAR Cardiovascular: Regular Rate, Regular Rhythm - MUSCULOSKELETAL/EXTREMETIES Musculoskeletal/Extremeties: MAMARISELA Notes: right knee pain with range of motion, pain extends up into her groin. right post bakers cyst. 2+ DP - NEURO Level of Consciousness: Awake, Alert Motor/Sensory: No Motor Deficit, No Sensory Deficit - DERM Integumentary: No Rash Course - Re-evaluation Re-evalutation: 07/20/17 08:13 Discussed the case with Dr. Zuleika car and he said to treat her for 5 days and tell her to spread them out which is what is allowed by law now. 07/20/17 09:03 pain better, vitals better-pulse 81 not clammy anymore. spouse here to get her 07/20/17 09:03 07/20/17 09:03 - Vital Signs Vital signs: Temp Pulse Resp BP Pulse Ox 97.8 F 113 H 16 141/104 H 97 07/20/17 07:50 07/20/17 07:50 07/20/17 07:50 07/20/17 07:50 07/20/17 07:50 Discharge - Discharge Clinical Impression: Chronic right leg and knee pain., Opiate dependency Condition: Good Disposition: HOME, SELF-CARE Instructions: Chronic Pain Control ([facility]) Additional Instructions: We will prescribe you 5 days worth of pain medication which is the maximum allowed by [place] law Return to the emergency room any concerns Prescriptions: Oxycodone HCl/Acetaminophen [Percocet 10-325 Mg Tablet] 1 each PO Q4HP PRN #20 tablet PRN Reason: Referrals: MECHE CLIFFORD MD [ACTIVE STAFF] - Follow up as needed
[2017-07-20] MEDS ORDERED: OXYCODONE-ACETAMINOPHEN 5-325 MG TABLET PO ONE (08:10)
[2017-07-20] MEDS ORDERED: ONDANSETRON 4 MG TAB.RAPDIS PO ONE (08:10)
[2017-07-20] MEDS ORDERED: PROMETHAZINE HCL 25 MG TABLET PO ONE (08:18)
[2017-07-20 09:03] VITALS: BP 118/95
== END 2017-07-20 09:03 | disposition home or self-care (01) ==
LOC: ER 07:44
DX: M79.604 Pain in right leg (principal); M25.561 Pain in right knee; G89.29 Other chronic pain; F11.20 Opioid dependence, uncomplicated; R10.31 Right lower quadrant pain; R11.2 Nausea with vomiting, unspecified; R61 Generalized hyperhidrosis; F17.200 Nicotine dependence, unspecified, uncomplicated; I10 Essential (primary) hypertension; J45.909 Unspecified asthma, uncomplicated; E11.9 Type 2 diabetes mellitus without complications
CPT/HCPCS: 99283; A9270 ×2

== ENCOUNTER 2017-07-25 16:30 | Emergency (ER) | payer MEDICARE, MEDICAID, OTHER ==
[2017-07-25] MEDS ORDERED: CLONIDINE HCL 0.2 MG TABLET PO ONE (16:47)
--- NOTE | 2017-07-25 16:47 | ER Document Report ---
ED General - General Chief Complaint: Pain Stated Complaint: POSSIBLE WITHDRAWLS Time Seen by Provider: 07/25/17 16:45 Mode of Arrival: Medic Information source: Patient TRAVEL OUTSIDE OF THE [place] IN LAST 30 DAYS: No - HPI Onset: Yesterday Onset/Duration: Gradual Quality of pain: Dull Severity: Severe Context: Patient relates history of chronic pain, for years was managed satisfactorily with Endocet 10-325 3 times daily. More recently she was referred by her orthopedic doctor to the pain management group affiliated with [facility]. They stopped her Endocet and tried to manage her pain with 2 different alternative medications. She states this was totally unsuccessful and she withdrew from their care. She states she took her last Endocet yesterday morning. She is scheduled for left knee replacement surgery on July 29. Associated symptoms: Chills, Diarrhea, Sweating, Other - MUSCLE PAIN, GENERALIZED Exacerbated by: Denies Relieved by: Denies Similar symptoms previously: Yes Recently seen / treated by doctor: Yes - SEE NOTE ABOVE - Related Data Allergies/Adverse Reactions: hydrocodone [Hydrocodone] Allergy (Severe, Verified 07/11/17 16:26) sertraline HCl [From Zoloft] Allergy (Severe, Verified 07/11/17 16:26) hives, resp arrest propranolol HCl [From Inderal] Allergy (Intermediate, Verified 07/11/17 16:26) Hives ketorolac [From Toradol] Allergy (Verified 07/11/17 16:26) lamotrigine [From Lamictal] Allergy (Verified 07/11/17 16:26) ondansetron Allergy (Verified 07/11/17 16:26) oxycodone Allergy (Verified 07/11/17 16:26) Hives propranolol Allergy (Verified 07/11/17 16:26) Past Medical History - General Information source: Patient - Social History Smoking Status: Unknown if Ever Smoked Chew tobacco use (# tins/day): No Frequency of alcohol use: None Drug Abuse: None Lives with: Spouse/Significant other Family History: Arthritis, CVA, Hyperlipidemia, Hypertension, Malignancy, Thyroid Disfunction Patient has suicidal ideation: No Patient has homicidal ideation: No - Past Medical History Cardiac Medical History: Reports: Hx Hypercholesterolemia, Hx Hypertension Pulmonary Medical History: Reports: Hx Asthma Neurological Medical History: Reports: Hx Cerebrovascular Accident, Hx Migraine Endocrine Medical History: Reports: Hx Diabetes Mellitus Type 2 - borderline diet controlled, Hx Hypothyroidism - Thyroid removed Renal/ Medical History: Reports: Hx Kidney Stones, Hx Ovarian Cysts. Denies: Hx Peritoneal Dialysis GI Medical History: Reports: Hx Gastroesophageal Reflux Disease, Hx Irritable Bowel Musculoskeltal Medical History: Reports Hx Arthritis, Reports Hx Musculoskeletal Deformity, Reports Hx Musculoskeletal Trauma Psychiatric Medical History: Reports: Hx Bipolar Disorder, Hx Depression, Hx Schizophrenia Past Surgical History: Reports: Hx Abdominal Surgery - Ex Lap, Hx Appendectomy - Ex Lap, Hx Section, Hx Gynecologic Surgery - hyst, Hx Hysterectomy, Hx Thyroid Surgery, Hx Tonsillectomy - Immunizations Immunizations up to date: Yes Hx Diphtheria, Pertussis, Tetanus Vaccination: Yes Hx Pneumococcal Vaccination: 12/15/15 Review of Systems - Review of Systems Constitutional: See HPI EENT: No symptoms reported Cardiovascular: No symptoms reported Respiratory: No symptoms reported Gastrointestinal: No symptoms reported Genitourinary: No symptoms reported Female Genitourinary: Post menopausal Musculoskeletal: Back pain Skin: No symptoms reported Neurological/Psychological: No symptoms reported Physical Exam - Vital signs Vitals: Resp BP Pulse Ox 22 H 164/106 H 95 07/25/17 16:40 07/25/17 16:40 07/25/17 16:40 Interpretation: Hypertensive, Tachycardic. No: Hypoxic, Tachypneic, Febrile - General General appearance: Anxious In distress: Mild - HEENT Head: Normocephalic Eyes: Normal Conjunctiva: Normal Ears: Normal Nasal: Normal Mouth/Lips: Normal Mucous membranes: Normal - Respiratory Respiratory status: No respiratory distress Breath sounds: Normal - Cardiovascular Rhythm: Regular Heart sounds: Normal auscultation Murmur: No - Abdominal Inspection: Obese Bowel sounds: Normal - Back Back: Normal - Extremities General upper extremity: Normal inspection General lower extremity: Normal inspection - Neurological Neuro grossly intact: Yes Cognition: Normal Orientation: AAOx4 - Psychological Associated symptoms: Normal affect, Normal mood - Skin Skin Temperature: Warm Skin Moisture: Dry Skin Color: Normal Skin Turgor: Elastic Course - Re-evaluation Re-evalutation: 07/25/17 19:31 Reevaluation: Patient states she is feeling "much better". Appears more comfortable. Blood pressure is near normal. No tachycardia. I have agreed to prescribe a limited number of Endocet to manage her pain until her planned surgery on Saturday. Patient verbalizes understanding of plan. - Vital Signs Vital signs: Temp Pulse Resp BP Pulse Ox 99.1 F 103 H 18 141/98 H 93 07/25/17 16:41 07/25/17 16:41 07/25/17 19:03 07/25/17 19:03 07/25/17 19:03 - Laboratory Result Diagrams: 07/25/17 18:36 07/25/17 18:36 Laboratory results interpreted by me: 07/25/17 07/25/17 18:36 18:36 Hct 35.4 L Sodium 136.8 L Potassium 3.1 L Chloride 87 L Carbon Dioxide 39 H BUN 3 L Glucose 112 H Total Protein 6.0 L - EKG Interpretation by Me EKG shows normal: Sinus rhythm, [place], Intervals, QRS Complexes. abnormal: ST-T Waves - BORDERLINE T ABNLS, WIDESPREAD, NS. Rate: Normal Rhythm: NSR Discharge - Discharge Clinical Impression: Narcotic dependence Chronic pain Qualifiers: Chronic pain type: chronic pain syndrome Qualified Code(s): G89.4 - Chronic pain syndrome Condition: Stable Disposition: HOME, SELF-CARE Additional Instructions: REST, DRINK PLENTY OF FLUIDS. CONTINUE YOUR USUAL MEDS. TAKE YOUR GENERIC PERCOCET DIRECTED, DO NOT EXCEED PRESCRIBED DOSE. FOLLOW UP FOR SURGERY SCHEDULED SATURDAY. Prescriptions: Oxycodone HCl/Acetaminophen [Oxycodone-Acetaminophen 10-325] 1 each PO TIDP PRN #10 tablet PRN Reason: For Pain Referrals: YEE LEONARD PA-C [Primary Care Provider] - Follow up as needed
[2017-07-25] MEDS ORDERED: OXYCODONE-ACETAMINOPHEN 5-325 MG TABLET PO ONE (18:14)
[2017-07-25 18:45] LABS: ABSOLUTE BASOPHILS # (AUTO) 0.1 10^3/uL (0.0-0.2); ABSOLUTE EOSINOPHILS # (AUTO) 0.3 10^3/uL (0.0-0.6); ABSOLUTE LYMPHOCYTES (AUTO) 2.1 10^3/uL (0.5-4.7); ABSOLUTE MONOCYTES (AUTO) 0.9 10^3/uL (0.1-1.4); ABSOLUTE NEUT (AUTO) 6.4 10^3/uL (1.7-8.2); BASOPHILS % (AUTO) 0.9 % (0-2); EOSINOPHILS % (AUTO) 2.8 % (0-6); HEMATOCRIT 35.4 % (36.0-47.0); HEMOGLOBIN 12.3 g/dL (12.0-15.5); LYMPHOCYTES % (AUTO) 21.3 % (13-45); MEAN CORPUSCULAR HEMOGLOBIN 31.6 pg (27.0-33.4); MEAN CORPUSCULAR HGB CONC 34.8 g/dL (32.0-36.0); MEAN CORPUSCULAR VOLUME 91 fl (80-97); MONOCYTES % (AUTO) 9.6 % (3-13); PLATELET COUNT 421 10^3/uL (150-450); RED BLOOD COUNT 3.89 10^6/uL (3.72-5.28); RED CELL DISTRIBUTION WIDTH 12.6 % (11.5-14.0); SEGMENTED NEUTROPHILS % (AUTO) 65.4 % (42-78); TOTAL CELLS COUNTED % (AUTO) 100 %; WHITE BLOOD COUNT 9.8 10^3/uL (4.0-10.5)
[2017-07-25 19:06] LABS: ALANINE AMINOTRANSFERASE 34 U/L (9-52); ALBUMIN 3.7 g/dL (3.5-5.0); ALKALINE PHOSPHATASE 93 U/L (38-126); ANION GAP 11 (5-19); ASPARTATE AMINO TRANSFERASE 18 U/L (14-36); BILIRUBIN,DIRECT 0.2 mg/dL (0.0-0.4); BILIRUBIN,TOTAL 0.2 mg/dL (0.2-1.3); BLOOD UREA NITROGEN 3 mg/dL (7-20); CALCIUM 10.2 mg/dL (8.4-10.2); CARBON DIOXIDE 39 mmol/L (22-30); CHLORIDE 87 mmol/L (98-107); GLUCOSE 112 mg/dL (75-110); POTASSIUM 3.1 mmol/L (3.6-5.0); SODIUM 136.8 mmol/L (137-145)
[2017-07-25 19:56] VITALS: BP 146/95
--- NOTE | 2017-07-25 20:04 | EKG REPORT ---
SEVERITY:- BORDERLINE ECG - SINUS RHYTHM BORDERLINE T WAVE ABNORMALITIES : Confirmed by: Mehrdad Curtis MD 25-Jul-2017 20:04:01
== END 2017-07-25 20:07 | disposition home or self-care (01) ==
LOC: ER 16:30
DX: G89.4 Chronic pain syndrome (principal); F19.20 Other psychoactive substance dependence, uncomplicated; R19.7 Diarrhea, unspecified; R68.83 Chills (without fever); R61 Generalized hyperhidrosis; Z79.899 Other long term (current) drug therapy; I10 Essential (primary) hypertension; J45.909 Unspecified asthma, uncomplicated; E11.9 Type 2 diabetes mellitus without complications
CPT/HCPCS: 93005; 99284; 36415; 85025; 80053; 93010; A9270 ×2

== ENCOUNTER 2017-08-03 09:12 | Observation (INO) | payer MEDICARE, MEDICAID ==
[2017-08-03] MEDS ORDERED: MORPHINE SULFATE 10 MG/ML INJ IV ONE (09:34)
--- NOTE | 2017-08-03 09:40 | ER Document Report ---
ED Medical Screen (RME) - General Mode of Arrival: Wheelchair Information source: Patient TRAVEL OUTSIDE OF THE [place] IN LAST 30 DAYS: No <AKASH CALDERON - Last Filed: 08/03/17 13:17> <ROSA CLAYTON - Last Filed: 08/03/17 14:15> - General Chief Complaint: Post Surgical Pain Stated Complaint: RIGHT KNEE PAIN, SWELLING Time Seen by Provider: 08/03/17 09:27 Notes: 61 y.o female presents to the ED with pain and edema to her RT knee. Pt states that she had surgery on Saturday and was in the hospital yesterday with a fever of 102. She reports that the surgery went well but now her knee is continuing to swell with increased pain and is with a yellowed exudate and she has concern for infection. (AKASH CALDERON) - Related Data Allergies/Adverse Reactions: hydrocodone [Hydrocodone] Allergy (Severe, Verified 08/03/17 09:35) sertraline HCl [From Zoloft] Allergy (Severe, Verified 08/03/17 09:35) hives, resp arrest propranolol HCl [From Inderal] Allergy (Intermediate, Verified 08/03/17 09:35) Hives ondansetron Allergy (Unknown, Verified 08/03/17 09:35) ketorolac [From Toradol] Allergy (Verified 08/03/17 09:35) lamotrigine [From Lamictal] Allergy (Verified 08/03/17 09:35) propranolol Allergy (Verified 08/03/17 09:35) Past Medical History - General Information source: Patient - Social History Cigarette use (# per day): No Chew tobacco use (# tins/day): No Frequency of alcohol use: None Drug Abuse: None - Past Medical History Cardiac Medical History: Reports: Hx Hypercholesterolemia, Hx Hypertension Pulmonary Medical History: Reports: Hx Asthma Neurological Medical History: Reports: Hx Cerebrovascular Accident, Hx Migraine Endocrine Medical History: Reports: Hx Diabetes Mellitus Type 2 - borderline diet controlled, Hx Hypothyroidism - Thyroid removed. Denies: Hx Graves' Disease, Hx Hyperthyroidism Renal/ Medical History: Reports: Hx Kidney Stones, Hx Ovarian Cysts. Denies: Hx End Stage Renal Disease, Hx Peritoneal Dialysis, Hx Pelvic Inflammatory Disease Malignancy Medical History: Denies: Hx Breast Cancer, Hx Cervical Cancer, Hx Ovarian Cancer GI Medical History: Reports: Hx Gastroesophageal Reflux Disease, Hx Irritable Bowel Musculoskeltal Medical History: Reports Hx Arthritis, Reports Hx Musculoskeletal Deformity, Reports Hx Musculoskeletal Trauma Psychiatric Medical History: Reports: Hx Bipolar Disorder, Hx Depression, Hx Schizophrenia Denies: Hx Post Traumatic Stress Disorder Traumatic Medical History: Past Surgical History: Reports: Hx Abdominal Surgery - Ex Lap, Hx Appendectomy - Ex Lap, Hx Section, Hx Gynecologic Surgery - hyst, Hx Hysterectomy, Hx Thyroid Surgery, Hx Tonsillectomy - Immunizations Immunizations up to date: Yes Hx Diphtheria, Pertussis, Tetanus Vaccination: Yes <AKASH CALDERON - Last Filed: 08/03/17 13:17> Review of Systems - Review of Systems Constitutional: See HPI, Fever - 102, Other - Recent surgery EENT: No symptoms reported Cardiovascular: No symptoms reported Respiratory: No symptoms reported Gastrointestinal: No symptoms reported Genitourinary: No symptoms reported Female Genitourinary: No symptoms reported Musculoskeletal: See HPI, Joint pain - RT knee, Joint swelling - RT knee Skin: See HPI, Other - Recent surgery to RT knee with increased edema and yellowed exudate Hematologic/Lymphatic: No symptoms reported Neurological/Psychological: No symptoms reported -: Yes All other systems reviewed and negative <AKASH CALDERON - Last Filed: 08/03/17 13:17> Physical Exam <AKASH CALDERON - Last Filed: 08/03/17 13:17> <ROSA CLAYTON - Last Filed: 08/03/17 14:15> - Vital signs Vitals: Temp Pulse Resp BP Pulse Ox 100.7 F H 97 20 138/90 H 98 08/03/17 09:20 08/03/17 09:20 08/03/17 09:20 08/03/17 09:20 08/03/17 09:20 - Notes Notes: Physical Exam: General: Alert, obviously in pain, tearful. HEENT: Normocephalic. Atraumatic. PERRLA. Extraocular movements intact. Oropharynx clear. Neck: Supple. Lungs: Clear to auscultation bilaterally, no wheezes, rales, or rhonchi. No respiratory distress. Heart: Regular rate and rhythm. No murmurs, gallops, or rubs. Abdominal: Normal Inspection. No distension. Extremities: Significant swelling to RT knee, erythema anteriorly. Warm to the touch. Pitting edema, better distally than around the knee. LLE and upper extremities have full range of motion. Neurological: Normal cognition. AAOx4. Normal speech. Psychological: Normal affect. Normal Mood. Skin: RT knee warm to touch, erythema as mentioned above. (AKASH CALDERON) Course - Laboratory Result Diagrams: 08/03/17 09:56 08/03/17 09:56 <AKASH CALDERON - Last Filed: 08/03/17 13:17> - Laboratory Result Diagrams: 08/03/17 09:56 08/03/17 09:56 <ROSA CLAYTON - Last Filed: 08/03/17 14:15> - Re-evaluation Re-evalutation: 08/03/17 09:41 Given the fever and the grossly swollen, erythematous knee, I am concerned for post-operative infection. There is minimal discharge from the wound however there is a large amount of surrounding erythema and it is very tender to palpation. I did discuss this patient with Dr. Pinedo who gave me permission to take down the dressing, this is when I noted that there is minimal clear discharge from the wound. Dr. Pinedo requested that I not attempt to aspirate the knee at this point. Given that DVT can be a cause of a postoperative fever as well and a DVT is common in knee replacement patients I will order a Doppler ultrasound at this time. During discussion with Dr. Pinedo he agreed that if I was really concerned about the possibility of infection that he would admit this patient. Requested that I not start antibiotics until he has seen the patient but agreed with ordering CBC, CMP, ESR and CRP. (ROSA CLAYTON) - Vital Signs Vital signs: Temp Pulse Resp BP Pulse Ox 98.2 F 98 25 H 145/87 H 94 08/03/17 12:42 08/03/17 12:42 08/03/17 12:42 08/03/17 12:42 08/03/17 12:42 - Laboratory Laboratory results interpreted by me: 08/03/17 08/03/17 09:56 09:56 WBC 12.2 H RBC 3.50 L Hgb 11.1 L Hct 31.9 L Plt Count 545 H ESR 100 H Potassium 3.4 L Chloride 96 L Carbon Dioxide 32 H BUN 6 L Glucose 129 H Direct Bilirubin 0.5 H AST 51 H C-Reactive Protein 167.4 H Doctor's Discharge <AKASH CALDERON - Last Filed: 08/03/17 13:17> <ROSA CLAYTON - Last Filed: 08/03/17 14:15> - Discharge Clinical Impression: Infection of right knee Condition: Stable Disposition: ADMITTED OBSERVATION Discharge <AKASH CALDERON - Last Filed: 08/03/17 13:17> - Discharge Admitting Provider: [facility] Unit Admitted: Surgical Floor <ROSA CLAYTON - Last Filed: 08/03/17 14:15> - Discharge Clinical Impression: Infection of right knee Condition: Stable Disposition: ADMITTED OBSERVATION Scribe Attestation: 08/03/17 14:15 I personally performed the services described in the documentation, reviewed and edited the documentation which was dictated to the scribe in my presence, and it accurately records my words and actions. (ROSA CLAYTON) Scribe Documentation - Scribe Written by Michelle:: Michelle Pepper 08/03/17 [id number] acting as scribe for :: Murphy <AKASH CALDERON - Last Filed: 08/03/17 13:17>
[2017-08-03] MEDS ORDERED: HYDROMORPHONE HCL INJ/PF 2 MG/ML AMPULE IV ONE (10:04)
[2017-08-03 10:19] LABS: ABSOLUTE BASOPHILS # (AUTO) 0.1 10^3/uL (0.0-0.2); ABSOLUTE EOSINOPHILS # (AUTO) 0.5 10^3/uL (0.0-0.6); ABSOLUTE LYMPHOCYTES (AUTO) 2.6 10^3/uL (0.5-4.7); ABSOLUTE MONOCYTES (AUTO) 1.1 10^3/uL (0.1-1.4); ABSOLUTE NEUT (AUTO) 7.9 10^3/uL (1.7-8.2); BASOPHILS % (AUTO) 0.5 % (0-2); EOSINOPHILS % (AUTO) 4.1 % (0-6); HEMATOCRIT 31.9 % (36.0-47.0); HEMOGLOBIN 11.1 g/dL (12.0-15.5); LYMPHOCYTES % (AUTO) 21.3 % (13-45); MEAN CORPUSCULAR HEMOGLOBIN 31.8 pg (27.0-33.4); MEAN CORPUSCULAR HGB CONC 34.9 g/dL (32.0-36.0); MEAN CORPUSCULAR VOLUME 91 fl (80-97); MONOCYTES % (AUTO) 9.4 % (3-13); PLATELET COUNT 545 10^3/uL (150-450); RED CELL DISTRIBUTION WIDTH 12.9 % (11.5-14.0); SEGMENTED NEUTROPHILS % (AUTO) 64.7 % (42-78); TOTAL CELLS COUNTED % (AUTO) 100 %; WHITE BLOOD COUNT 12.2 10^3/uL (4.0-10.5)
[2017-08-03 10:23] LABS: PROTHROMBIN TIME 13.7 SEC (11.4-15.4)
[2017-08-03 10:39] LABS: ALANINE AMINOTRANSFERASE 50 U/L (9-52); ALBUMIN 3.7 g/dL (3.5-5.0); ALKALINE PHOSPHATASE 75 U/L (38-126); ANION GAP 10 (5-19); ASPARTATE AMINO TRANSFERASE 51 U/L (14-36); BILIRUBIN,DIRECT 0.5 mg/dL (0.0-0.4); BILIRUBIN,TOTAL 0.7 mg/dL (0.2-1.3); BLOOD UREA NITROGEN 6 mg/dL (7-20); CALCIUM 9.1 mg/dL (8.4-10.2); CARBON DIOXIDE 32 mmol/L (22-30); CHLORIDE 96 mmol/L (98-107); GLUCOSE 129 mg/dL (75-110); POTASSIUM 3.4 mmol/L (3.6-5.0); TOTAL PROTEIN 7.3 g/dL (6.3-8.2)
[2017-08-03 10:51] LABS: C-REACTIVE PROTEIN 167.4 mg/L (<10.0)
[2017-08-03 10:58] LABS: ERYTHROCYTE SEDIMENTATION RATE 100 mm/hr (0-30)
[2017-08-03] MEDS: OXYCODONE-ACETAMINOPHEN 5-325 MG TABLET PO PRN ×3 (13:25→21:12)
[2017-08-03] MEDS: OXYCODONE HCL IR 5 MG TABLET PO PRN (21:12)
[2017-08-03] MEDS ORDERED: OXYCODONE HCL SR 10 MG TABLET PO SCH (22:00)
[2017-08-04] MEDS: OXYCODONE-ACETAMINOPHEN 5-325 MG TABLET PO PRN ×3 (01:11→09:15)
[2017-08-04] MEDS: OXYCODONE HCL IR 5 MG TABLET PO PRN ×3 (01:12→09:15)
--- NOTE | 2017-08-04 06:49 | PDOC H&P ---
History of Present Illness Admission Date/PCP: 08/03/17 10:20 YEE LEONARD PA-C History of Present Illness: KARLIE SERRANO is a 61 year old female who presented to the emergency room on postop day 5 status post right knee arthroplasty with complaints of pain in the knee and fever. Her temperature was recorded at 38.2C she was evaluated by who felt it would be best if the patient was admitted for observation. I examined the wound in the emergency room and felt that it was appropriate for her stage of postoperative healing. But the patient was admitted for observation because of the febrile episodes. Past Medical History Cardiac Medical History: Reports: Hyperlipidema, Hypertension Pulmonary Medical History: Reports: Asthma Neurological Medical History: Reports: Migraine Endocrine Medical History: Reports: Diabetes Mellitus Type 2 - borderline diet controlled, Hypothyroidism - Thyroid removed Denies: Hyperthyroidism Renal/ Medical History: Denies: End Stage Renal Disease Malignancy Medical History: Denies: Breast Cancer, Cervical Cancer, Ovarian Cancer GI Medical History: Reports: Gastroesophageal Reflux Disease Musculoskeltal Medical History: Reports: Arthritis Psychiatric Medical History: Reports: Bipolar Disorder, Depression Denies: Post Traumatic Stress Disorder Past Surgical History Past Surgical History: Reports: Appendectomy - Ex Lap, Section, Hysterectomy, Orthopedic Surgery - Postop day 5 right total knee arthroplasty, Tonsillectomy Social History Information Source: Patient, [facility], [facility] Records Smoking Status: Former Smoker Frequency of Alcohol Use: None Hx Recreational Drug Use: No Hx Prescription Drug Abuse: No Family History Family History: Arthritis, CVA, Hyperlipidemia, Hypertension, Malignancy, Thyroid Disfunction Parental Family History Reviewed: No Children Family History Reviewed: No Sibling(s) Family History Reviewed.: No Medication/Allergy Home Medications: Alprazolam [Xanax] 2 mg PO Q8 08/03/17 Amlodipine Besylate [Norvasc 2.5 mg Tablet] 2.5 mg PO DAILY 08/03/17 Clonidine HCl [Catapres 0.1 mg Tablet] 0.1 mg PO Q12 08/03/17 Ezetimibe [Zetia 10 mg Tablet] 10 mg PO DAILY 08/03/17 Furosemide [Lasix 20 mg Tablet] 20 mg PO DAILY 08/03/17 Hydrochlorothiazide [Hydrodiuril 12.5 mg Capsule] 12.5 mg PO BID@0600,1600 08/03 Hydroxyzine Pamoate [Vistaril 50 mg Capsule] 50 mg PO TID 08/03/17 Ibuprofen [Motrin 800 mg Tablet] 800 mg PO Q12 08/03/17 Levothyroxine Sodium [Synthroid 0.1 mg Tablet] 0.2 mg PO Q6AM 08/03/17 Losartan Potassium [Cozaar 25 mg Tablet] 25 mg PO Q12 08/03/17 Metoprolol Tartrate [Lopressor 50 mg Tablet] 50 mg PO Q12 08/03/17 Morphine Sulfate/Naltrexone [Embeda ER 20-0.8 mg Capsule] 1 cap PO Q8 08/03/17 Oxycodone HCl [Oxycodone HCl 10 MG Tablet] 10 mg PO Q4 08/03/17 Oxycodone HCl/Acetaminophen [Endocet 10-325 mg Tablet] 1 tab PO Q4HP PRN Promethazine HCl [Phenergan 25 mg Tablet] 25 mg PO Q8HP PRN 08/03/17 Suvorexant [Belsomra] 15 mg PO HSP PRN 08/03/17 Allergies/Adverse Reactions: hydrocodone [Hydrocodone] Allergy (Severe, Verified 08/03/17 09:35) sertraline HCl [From Zoloft] Allergy (Severe, Verified 08/03/17 09:35) hives, resp arrest propranolol HCl [From Inderal] Allergy (Intermediate, Verified 08/03/17 09:35) Hives ondansetron Allergy (Unknown, Verified 08/03/17 09:35) ketorolac [From Toradol] Allergy (Verified 08/03/17 09:35) lamotrigine [From Lamictal] Allergy (Verified 08/03/17 09:35) propranolol Allergy (Verified 08/03/17 09:35) Review of Systems All systems: as per PMH Physical Exam Vital Signs: Temp Pulse Resp BP Pulse Ox 37.3 C 95 17 163/92 H 97 08/03/17 19:53 08/03/17 19:53 08/03/17 19:53 08/03/17 19:53 08/03/17 19:53 Intake & Output 08/02/17 08/03/17 08/04/17 06:59 06:59 06:59 Intake Total 570 Output Total 500 Balance 70 General appearance: PRESENT: no acute distress Head exam: PRESENT: normocephalic Respiratory exam: PRESENT: unlabored Cardiovascular exam: PRESENT: RRR Pulses: PRESENT: +1 pedal pulses bilateral Vascular exam: PRESENT: normal capillary refill GI/Abdominal exam: PRESENT: soft Rectal exam: PRESENT: deferred Extremities exam: PRESENT: other - Right knee wound is examined in the emergency room. There is some edema about the knee as well as ecchymosis. There is small amount of erythema but not along the staple line. The franky are intact and the skin edges are well approximated. There is no drainage. There is minimal pedal edema. Distal neurovascular examination is intact. Neurological exam: PRESENT: alert, awake, oriented to person, oriented to place , oriented to time, oriented to situation. ABSENT: motor sensory deficit Psychiatric exam: PRESENT: appropriate affect, normal mood. ABSENT: homicidal ideation, suicidal ideation Skin exam: PRESENT: dry, intact, warm. ABSENT: cyanosis, rash Results Status: Imported from PACS Assessment & Plan - Diagnosis (1) History of knee replacement Qualifiers: Laterality: right Qualified Code(s): Z96.651 - Presence of right artificial knee joint Is this a current diagnosis for this admission?: Yes Plan: 61-year-old white female status post right knee arthroplasty with some postoperative pain and a febrile episode to 38.2. Patient will be admitted for 23 hour outpatient observation - Time Time Spent: 50 to 70 Minutes Anticipated discharge: Home with Homehealth Within: within 24 hours
--- NOTE | 2017-08-04 06:52 | PDOC DISCHARGE SUMMARY ---
General - Admit/Disc Date/PCP Admission Date/Primary Care Provider: 08/03/17 10:20 YEE LEONARD PA-C Discharge Date: 08/04/17 - Discharge Diagnosis (1) History of knee replacement Is this a current diagnosis for this admission?: Yes - Additional Information Home Medications: Alprazolam [Xanax] 2 mg PO Q8 08/03/17 Amlodipine Besylate [Norvasc 2.5 mg Tablet] 2.5 mg PO DAILY 08/03/17 Clonidine HCl [Catapres 0.1 mg Tablet] 0.1 mg PO Q12 08/03/17 Ezetimibe [Zetia 10 mg Tablet] 10 mg PO DAILY 08/03/17 Furosemide [Lasix 20 mg Tablet] 20 mg PO DAILY 08/03/17 Hydrochlorothiazide [Hydrodiuril 12.5 mg Capsule] 12.5 mg PO BID@0600,1600 08/03 Hydroxyzine Pamoate [Vistaril 50 mg Capsule] 50 mg PO TID 08/03/17 Ibuprofen [Motrin 800 mg Tablet] 800 mg PO Q12 08/03/17 Levothyroxine Sodium [Synthroid 0.1 mg Tablet] 0.2 mg PO Q6AM 08/03/17 Losartan Potassium [Cozaar 25 mg Tablet] 25 mg PO Q12 08/03/17 Metoprolol Tartrate [Lopressor 50 mg Tablet] 50 mg PO Q12 08/03/17 Morphine Sulfate/Naltrexone [Embeda ER 20-0.8 mg Capsule] 1 cap PO Q8 08/03/17 Oxycodone HCl [Oxycodone HCl 10 MG Tablet] 10 mg PO Q4 08/03/17 Oxycodone HCl/Acetaminophen [Endocet 10-325 mg Tablet] 1 tab PO Q4HP PRN Promethazine HCl [Phenergan 25 mg Tablet] 25 mg PO Q8HP PRN 08/03/17 Suvorexant [Belsomra] 15 mg PO HSP PRN 08/03/17 History of Present Illness History of Present Illness: Patient is a 61-year-old white female with a past medical history significant for suicidal ideation and opioid abuse who presents to the emergency room with increased pain and febrile episode postop day 5 right knee arthroplasty Hospital Course Hospital Course: Patient is admitted through the emergency room for observation. She remains afebrile without her stay. Dressing is changed the morning following admission and the wound remains clean dry and intact. Minimal pedal edema. Distal neurovascular examination is intact. Physical Exam Vital Signs: Temp Pulse Resp BP Pulse Ox 37.3 C 95 17 163/92 H 97 08/03/17 19:53 08/03/17 19:53 08/03/17 19:53 08/03/17 19:53 08/03/17 19:53 Intake & Output 08/02/17 08/03/17 08/04/17 06:59 06:59 06:59 Intake Total 570 Output Total 500 Balance 70 General appearance: PRESENT: mild distress Head exam: PRESENT: normocephalic Respiratory exam: PRESENT: unlabored Cardiovascular exam: PRESENT: RRR Pulses: PRESENT: +1 pedal pulses bilateral Vascular exam: PRESENT: normal capillary refill GI/Abdominal exam: PRESENT: soft Rectal exam: PRESENT: deferred Extremities exam: PRESENT: other - Wound is well approximated with franky. Minimal drainage. Surrounding soft tissue edema and ecchymosis continued present. Tenderness to palpation seems to be out of portion to the surgical wound. Minimal pedal edema. Distal neurovascular examination is intact. Results Status: Imported from PACS Qualifiers - * PATEINT BEING DISCHARGED WITH ANY OF THE FOLLOWING DIAGNOSIS?: No VTE patient discharged on overlapping Therapy?: Yes Plan Discharge Plan: Patient to be discharged home with restitution of home health services. When the patient was discharged 3 days ago she was given a prescription for 60 narcotic tablets and should not need any further narcotics today at the time of discharge. Patient has a history of opioid abuse was actually discharged from the pain management arm of our practice
[2017-08-04 09:08] VITALS: BP 146/99
--- NOTE | 2017-08-04 16:22 | XCELERA REPORT ---
[address] [address] Lower Extremity Venous Evaluation Name: KARLIE SERRANO Age: 61 yrs Gender: Female : 1955 Patient Status: Inpatient Patient Location: [place] [address]^A Study Date: 08/03/2017 10:33 AM Procedure: Color flow and duplex imaging of the veins of the right lower extremity as well as the left Common Femoral vein. Reason For Study: right leg swelling post-op Ordering Physician: ROSA CLAYTON Performed By: Mabel Renee Right Sided Venous Evaluation Normal vessel filling wall to wall, compression and augmentation as well as Colour flow down to the infrageniculate veins. Left Sided Venous Evaluation The left common femoral vein is fully compressible. Spontaneous and phasic flow is present in the left common femoral vein. Interpretation Summary No duplex evidence of DVT or obstruction in the right lower extremity nor in the left Common Femoral vein. : ROSA CLAYTON > Polo Almanzar
--- NOTE | 2017-08-05 18:54 | CONSULTATION REPORT E ---
Consultation Report NAME: KARLIE SERRANO : 1955 AGE: 61Y DATE: 08/03/2017 416 A TO: BETTE FELICIANO [facility]C [facility], Requesting Physician PAIN MANAGEMENT CONSULTATION SUBJECTIVE: I received a consult late Saturday night, 08/03, on this patient. I responded via telephone, given the time of night. I did not actually speak with the patient. The history was taken by the nurse by the name of Jos. Apparently she was admitted through the ER earlier that day for increased right knee pain, possible infection from a recent replacement done by Dr. Pinedo sometime last week, and they were waiting on cultures. She was apparently a chronic pain patient, not at our office, but somewhere else. Her medication list for pain was a little confusing. It stated she was on Embeda 20/0.8 mg every 8 hours, Percocet 10 mg q.4 hours p.r.n. and oxycodone 10 mg q.4 hours scheduled, which did not make a whole lot of sense to me. I asked Jos to ask the patient when the last time she took anything was. She said she has not had the Embeda in several weeks, because it was making her itch, and the only thing patient was taking was Percocet. While inpatient, she was only scheduled to have Percocet 10 mg every 4 hours as needed. At that point, I ordered a verbal OxyContin prescription at 10 mg every 12 hours scheduled, and I was planning on seeing her the next morning, 08/04. When I logged in remotely at 7: 30am there was already a discharge summary dictated, so I did not end up being able to see her, but I wanted to document the reason for the medication change/order. PHYSICAL EXAMINATION: None. ASSESSMENT: Chronic pain and acute right knee pain, possible infection. PLAN: OxyContin was added, 10 mg every 12 hours scheduled. Again, I did not get a chance to follow up with her, because she was discharged, so she only had 1 dose while inpatient I believe. DICTATING PHYSICIAN: ENMANUEL MONTILLA PA-C [id number] PHY#: [id number] ID: [id number] JOB#: [id number] ACCT: [id number] cc:BETTE FELICIANO PA-C > JULIA
== END 2017-08-04 09:56 | disposition home health service (06) ==
LOC: ER 09:12 → INTOOBSV 10:20 → EH 10:20 → 4W 11:05
PROVIDERS: ADMIT Orthopaedic Surgery; ATTEND Orthopaedic Surgery
DX: Z96.651 Presence of right artificial knee joint (principal); R60.0 Localized edema; G89.18 Other acute postprocedural pain; R50.82 Postprocedural fever; F11.11 Opioid abuse, in remission; G89.29 Other chronic pain; I10 Essential (primary) hypertension; Z86.73 Personal history of transient ischemic attack (TIA), and cerebral infarction without residual deficits; Z79.899 Other long term (current) drug therapy; M19.90 Unspecified osteoarthritis, unspecified site; Z90.49 Acquired absence of other specified parts of digestive tract; Z87.891 Personal history of nicotine dependence
CPT/HCPCS: 99285; 96374; 36415; 87040; 85025; 85652; 85610; 86140; 80053; 93971 ×2; G0378 ×3; A9270 ×5; J1170

== ENCOUNTER 2017-08-11 15:01 | Emergency (ER) | payer MEDICARE, MEDICAID, OTHER ==
[2017-08-11] MEDS ORDERED: HYDROMORPHONE HCL 2 MG TABLET PO ONE (16:49)
--- NOTE | 2017-08-11 17:30 | ER Document Report ---
ED Medical Screen (RME) - General Chief Complaint: Post Surgical Pain Stated Complaint: PAIN AROUND SUTURES Time Seen by Provider: 08/11/17 16:49 Notes: Patient is complaining of pain and swelling and redness of her right knee which she had a total replacement of on July [address] Clifford. There have been some concerns that she might have an infection in the knee joint and she was hospitalized overnight here for further evaluation. However, she saw Dr. Clifford on Saturday, 5 days ago, and the knee looked okay at that time. Then, Saturday, she fell from bed landing on her knee. Yesterday, it was a little bit red but otherwise did not show any signs of a problem. This morning, she awakens to increased redness of the anterior aspect of the knee, increased warmth to the touch, and severe pain, so much so that she cannot walk on the leg. She has not had any drainage from the incision. She has not had any fever. Patient has Percocet f at home and does not get pain relief even when taking 2 of them. TRAVEL OUTSIDE OF THE [place] IN LAST 30 DAYS: No - Related Data Allergies/Adverse Reactions: hydrocodone [Hydrocodone] Allergy (Severe, Verified 08/11/17 15:05) sertraline HCl [From Zoloft] Allergy (Severe, Verified 08/11/17 15:05) hives, resp arrest propranolol HCl [From Inderal] Allergy (Intermediate, Verified 08/11/17 15:05) Hives ondansetron Allergy (Unknown, Verified 08/11/17 15:05) ketorolac [From Toradol] Allergy (Verified 08/11/17 15:05) lamotrigine [From Lamictal] Allergy (Verified 08/11/17 15:05) propranolol Allergy (Verified 08/11/17 15:05) Past Medical History - Social History Cigarette use (# per day): No Chew tobacco use (# tins/day): No Frequency of alcohol use: Occasional Drug Abuse: None Family history: Reviewed & Not Pertinent - Past Medical History Cardiac Medical History: Reports: Hx Hypercholesterolemia, Hx Hypertension Pulmonary Medical History: Reports: Hx Asthma Neurological Medical History: Reports: Hx Cerebrovascular Accident, Hx Migraine Endocrine Medical History: Reports: Hx Diabetes Mellitus Type 2 - borderline diet controlled, Hx Hypothyroidism - Thyroid removed Renal/ Medical History: Reports: Hx Kidney Stones, Hx Ovarian Cysts, Hx Peritoneal Dialysis Malignancy Medical History: GI Medical History: Reports: Hx Gastroesophageal Reflux Disease, Hx Irritable Bowel Musculoskeltal Medical History: Reports Hx Arthritis, Reports Hx Musculoskeletal Deformity, Reports Hx Musculoskeletal Trauma Psychiatric Medical History: Reports: Hx Bipolar Disorder, Hx Depression, Hx Schizophrenia Traumatic Medical History: Past Surgical History: Reports: Hx Abdominal Surgery - Ex Lap, Hx Appendectomy - Ex Lap, Hx Section, Hx Gynecologic Surgery - hyst, Hx Hysterectomy, Hx Orthopedic Surgery - Postop day 5 right total knee arthroplasty, Hx Thyroid Surgery, Hx Tonsillectomy - Immunizations Immunizations up to date: Yes Hx Diphtheria, Pertussis, Tetanus Vaccination: Yes Review of Systems - Review of Systems Notes: REVIEW OF SYSTEMS: CONSTITUTIONAL : Denies fever. EENT: Denies eye, ear, nose or mouth or throat pain or other symptoms. CARDIOVASCULAR: Denies chest pain. RESPIRATORY: Denies cough, chest congestion, or shortness of breath. GASTROINTESTINAL: Denies abdominal pain or nausea, vomiting, or diarrhea. GENITOURINARY: Denies difficulty or painful urinating, urinary frequency, blood in urine. MUSCULOSKELETAL: Denies back or neck pain. See HPI. SKIN: Denies rash or skin lesions. See HPI. NEUROLOGICAL: Denies LOC or altered mental status. Denies headache. Denies sensory loss or motor deficits. ALL OTHER SYSTEMS REVIEWED AND NEGATIVE. Physical Exam - Vital signs Vitals: Temp Pulse Resp BP Pulse Ox 98.4 F 81 14 116/70 98 08/11/17 15:21 08/11/17 15:21 08/11/17 15:21 08/11/17 15:21 08/11/17 15:21 Interpretation: Normal. No: Febrile - Notes Notes: PHYSICAL EXAMINATION: GENERAL: Well-appearing, in no acute distress, although she does seem to be in pain. HEAD: Atraumatic, normocephalic. LUNGS: Breath sounds clear and equal bilaterally. HEART: Regular rate and rhythm without murmurs. ABDOMEN: Soft, nontender. No guarding or rebound. No masses. BACK: No tenderness throughout entire back. EXTREMITIES: Right knee has a midline anterior vertical surgical incision with franky. Around the incision there is some tissue with erythema suggestive of cellulitis. No drainage from any portion of the incision. Palpation reveals slight increase in warmth. No fluctuance detected and no drainage with gentle compression. NEUROLOGICAL: Normal speech, normal gait. Normal sensory, motor, and reflex exams. Awake, alert, and oriented x3. Cranial nerves normal. PSYCH: Normal mood, normal affect. SKIN: Warm, dry, no rashes. Course - Re-evaluation Re-evalutation: 08/11/17 17:48 Patient was given a Dilaudid for pain which helped her pain significantly. I spoke with Dr. Keita, he recommended not starting the patient on antibiotics and with the wound "declare itself" as to whether there is an infection present and need for antibiotics. I do not think she has an abscess or fluid collection although this could be early cellulitis. Dr. Clifford will see the patient tomorrow at 10:00 in his office. She was given a prescription for 6 Dilaudid 2 mg pills. - Vital Signs Vital signs: Temp Pulse Resp BP Pulse Ox 97.6 F 81 16 119/74 96 08/11/17 17:37 08/11/17 17:37 08/11/17 17:37 08/11/17 17:37 08/11/17 17:37 Doctor's Discharge - Discharge Clinical Impression: Postoperative pain of right knee, Contusion of knee, right Condition: Stable Disposition: HOME, SELF-CARE Additional Instructions: CONTUSION knee: Your injury has resulted in a contusion -- a crushing of the deep tissues. No injury to important structures was detected during the physician's exam. Contusions vary in the amount of pain they cause, and in the length of time required for healing. Typically, the area will become bruised, and will remain painful to touch for two or three weeks. However, most patients are back to working and playing within a few days. After the initial period of rest and cold-packs, your symptoms (together with the doctor's recommendations) will determine how rapidly you can get back to full activity. Usually this means "do what feels okay, but don't do things that hurt." If re-examination was recommended, it's important to follow up as instructed. Call the doctor or return any time if pain increases, if swelling becomes severe, if you develop numbness or weakness in an injured extremity, or if any other alarming symptoms occur. The redness of the front of your knee could be a cellulitis or infection of the tissue. I do not think there is an abscess collection as there is no drainage and I do not feel fluid in the incision. I have spoken with Dr. Clifford who asked that I not start any antibiotics until we have a better clue as to whether there is an actual infection present or if the discoloration may just be from the bruising where he fell Saturday. ORAL NARCOTIC MEDICATION: You have been given a prescription for pain control. This medication is a narcotic. It's best taken with food, as nausea can result if taken on an empty stomach. Don't operate machinery or drive within six hours of taking this medication. Do not combine this medicine with alcohol, or with any medication which can cause sedation (such as cold tablets or sleeping pills) unless you get permission from the physician. Narcotics tend to cause constipation. If possible, drink plenty of fluids and eat a diet high in fiber and fruits. FOLLOW-UP CARE: If you have been referred to a physician for follow-up care, call the physician s office for an appointment as you were instructed or within the next two days. If you experience worsening or a significant change in your symptoms, notify the physician immediately or return to the Emergency Department at any time for re-evaluation. Dr. Clifford said to be at his office at 10:00 tomorrow morning and he will see you to recheck the wound at that time. At any time, return to the emergency department for reevaluation if you are concerned that your condition is worsening. In particular if you run a high fever or you start noticing persistent drainage from the incision, return for us to reevaluate. Prescriptions: Hydromorphone HCl [Dilaudid 2 mg Tablet] 2 mg PO Q4HP PRN #6 tablet PRN Reason: Referrals: MECHE CLIFFORD MD [ACTIVE STAFF] - Follow up tomorrow
[2017-08-11 17:37] VITALS: BP 119/74
== END 2017-08-11 17:39 | disposition home or self-care (01) ==
LOC: ER 15:01
DX: S80.01XA Contusion of right knee, initial encounter (principal); G89.18 Other acute postprocedural pain; Z96.651 Presence of right artificial knee joint; M79.89 Other specified soft tissue disorders; M25.561 Pain in right knee; W06.XXXA Fall from bed, initial encounter; Z79.899 Other long term (current) drug therapy; I10 Essential (primary) hypertension; J45.909 Unspecified asthma, uncomplicated; E11.9 Type 2 diabetes mellitus without complications
CPT/HCPCS: 99283; A9270

== ENCOUNTER 2017-08-12 02:59 | Emergency (ER) | payer MEDICARE, MEDICAID, OTHER ==
[2017-08-12] MEDS ORDERED: HYDROMORPHONE HCL INJ/PF 2 MG/ML AMPULE IM ONE (04:24)
--- NOTE | 2017-08-12 04:37 | ER Document Report ---
HPI - HPI Patient complains to provider of: right knee pain Pain Level: 5 Context: Patient is a 61-year-old female who comes emergency department for chief complaint of right knee pain. She had surgery on this knee 2 weeks ago, she is following with Dr. Pinedo, she states that she fell on the knee previously but already had an x-ray which was normal, she also states that she was seen here earlier today, was given pain medication, and was instructed follow-up at 10 AM in the office with Dr. Pinedo for a check. She states that yesterday the knee started hurting more than it had previously, she noticed a little bit of redness at the wound site, she denies discolored drainage, reinjury since the first time. She denies any significant change in the knee since she was seen earlier except that the pain medicine wore off. She denies fever or chills. - REPRODUCTIVE Reproductive: DENIES: : - DERM Skin Color: Normal Past Medical History - Social History Smoking Status: Never Smoker Family History: Arthritis, CVA, Hyperlipidemia, Hypertension, Malignancy, Thyroid Disfunction Patient has suicidal ideation: No Patient has homicidal ideation: No - Past Medical History Cardiac Medical History: Reports: Hx Hypercholesterolemia, Hx Hypertension Pulmonary Medical History: Reports: Hx Asthma Neurological Medical History: Reports: Hx Cerebrovascular Accident, Hx Migraine Endocrine Medical History: Reports: Hx Diabetes Mellitus Type 2 - borderline diet controlled, Hx Hypothyroidism - Thyroid removed. Denies: Hx Graves' Disease, Hx Hyperthyroidism Renal/ Medical History: Reports: Hx Kidney Stones, Hx Ovarian Cysts. Denies: Hx End Stage Renal Disease, Hx Peritoneal Dialysis, Hx Pelvic Inflammatory Disease Malignancy Medical History: Denies: Hx Breast Cancer, Hx Cervical Cancer, Hx Ovarian Cancer GI Medical History: Reports: Hx Gastroesophageal Reflux Disease, Hx Irritable Bowel Musculoskeltal Medical History: Reports Hx Arthritis, Reports Hx Musculoskeletal Deformity, Reports Hx Musculoskeletal Trauma Psychiatric Medical History: Reports: Hx Bipolar Disorder, Hx Depression, Hx Schizophrenia Denies: Hx Post Traumatic Stress Disorder Traumatic Medical History: Past Surgical History: Reports: Hx Abdominal Surgery - Ex Lap, Hx Appendectomy - Ex Lap, Hx Section, Hx Gynecologic Surgery - hyst, Hx Hysterectomy, Hx Orthopedic Surgery - Postop day 5 right total knee arthroplasty, Hx Thyroid Surgery, Hx Tonsillectomy - Immunizations Immunizations up to date: Yes Hx Diphtheria, Pertussis, Tetanus Vaccination: Yes Hx Pneumococcal Vaccination: 12/15/15 Vertical Provider Document - CONSTITUTIONAL General Appearance: WD/WN, No Apparent Distress, Other - Patient complains of pain but does not appear to be in severe distress - INFECTION CONTROL TRAVEL OUTSIDE OF THE [place] IN LAST 30 DAYS: No - HEENT HEENT: Atraumatic, Normocephalic - NECK Neck: Normal Inspection - RESPIRATORY Respiratory: Breath Sounds Normal, No Respiratory Distress - CARDIOVASCULAR Cardiovascular: Regular Rate, Regular Rhythm. negative: Tachycardia - GI/ABDOMEN Gastrointestinal: Abdomen Soft, Abdomen Non-Tender - BACK Back: Normal Inspection - MUSCULOSKELETAL/EXTREMETIES Musculoskeletal/Extremeties: Tender - There is some warmth generally to the right knee, surgical franky in place, minimal erythema at the site of the franky, no discharge, no overt spreading erythema, no induration or fluctuance , range of motion of the knee is normal, normal distal neurovascular exam, normal lower extremity exam otherwise - NEURO Level of Consciousness: Awake, Alert, Appropriate Course - Re-evaluation Re-evalutation: Patient has full range of motion of the knee. There is minimal erythema adjacent to the franky, there is some warmth of the joint, there is no overt evidence of infection. Review of previous chart today shows that Dr. Pinedo was contacted and did not want antibiotics prophylactically. Patient has had no change reported since previous examination. I did discuss potentially doing blood work including ESR and CRP but patient declined. She states that she will be following up at 10 AM without fail. Because orthopedics was already contacted, patient has no significant change, and she has follow-up within hours , patient will be discharged to perform this. - Vital Signs Vital signs: Temp Pulse Resp BP Pulse Ox 98.1 F 103 H 20 147/97 H 96 08/12/17 03:08 08/12/17 03:08 08/12/17 03:08 08/12/17 03:08 08/12/17 03:08 Discharge - Discharge Clinical Impression: Post-operative pain Right knee pain Qualifiers: Chronicity: acute Qualified Code(s): M25.561 - Pain in right knee Condition: Stable Disposition: HOME, SELF-CARE Additional Instructions: Please follow-up with Dr. Pinedo in the office at 10 AM as discussed. Return if you worsen including spreading redness, increased swelling, fever 100.4 or greater, or any other concerning or worsening symptoms.
[2017-08-12 05:41] VITALS: BP 173/98
== END 2017-08-12 05:38 | disposition home or self-care (01) ==
LOC: ER 02:59
DX: G89.18 Other acute postprocedural pain (principal); M25.561 Pain in right knee; Z98.890 Other specified postprocedural states; E78.00 Pure hypercholesterolemia, unspecified; I10 Essential (primary) hypertension; R73.03 Prediabetes; Z86.73 Personal history of transient ischemic attack (TIA), and cerebral infarction without residual deficits; Z90.710 Acquired absence of both cervix and uterus
CPT/HCPCS: 99283; 96372; J1170

== ENCOUNTER 2017-08-18 03:45 | Emergency (ER) | payer MEDICARE, MEDICAID, OTHER ==
[2017-08-18] MEDS ORDERED: HYDROMORPHONE HCL 2 MG TABLET PO ONE (04:56)
--- NOTE | 2017-08-18 04:58 | ER Document Report ---
HPI - HPI Patient complains to provider of: right knee pain Onset: Other - Chronic or since having surgery on 07/29/2017 Onset/Duration: Persistent Quality of pain: Achy Pain Level: 5 Context: Patient has a history of chronic knee pain recently had a knee replacement surgery on 07/29/2017. Patient has been seen multiple times since the surgery for pain related complaints. Patient does have an appointment with her surgeon in 2 days for a recheck. Patient states that she has been out of any pain medication aside from Motrin the past 4 days. Patient states that due to the severity of her pain she was taking 2 pills at a time, even though the prescription was only 1 pill every 6 hours. Patient denies any new injury or fever. Patient states the swelling to the knee has been improving. Patient has been able to participate in daily physical therapy at her home. Associated Symptoms: Other - Right knee pain. denies: Fever Exacerbated by: Movement Relieved by: Denies Similar symptoms previously: Yes Recently seen / treated by doctor: Yes - ROS ROS below otherwise negative: Yes Systems Reviewed and Negative: Yes All other systems reviewed and negative - CONSTITUTIONAL Constitutional: DENIES: Fever, Chills - NEURO Neurology: DENIES: Weakness - GASTROINTESTINAL Gastrointestinal: DENIES: Nausea, Patient vomiting - REPRODUCTIVE Reproductive: DENIES: : - MUSCULOSKELETAL Musculoskeletal: REPORTS: Extremity pain Past Medical History - General Information source: Patient - Social History Smoking Status: Never Smoker Chew tobacco use (# tins/day): No Frequency of alcohol use: None Drug Abuse: None Lives with: Family Family History: Arthritis, CVA, Hyperlipidemia, Hypertension, Malignancy, Thyroid Disfunction Patient has suicidal ideation: No Patient has homicidal ideation: No - Past Medical History Cardiac Medical History: Reports: Hx Hypercholesterolemia, Hx Hypertension Pulmonary Medical History: Reports: Hx Asthma Neurological Medical History: Reports: Hx Cerebrovascular Accident, Hx Migraine Endocrine Medical History: Reports: Hx Diabetes Mellitus Type 2 - borderline diet controlled, Hx Hypothyroidism - Thyroid removed. Denies: Hx Graves' Disease, Hx Hyperthyroidism Renal/ Medical History: Reports: Hx Kidney Stones, Hx Ovarian Cysts. Denies: Hx End Stage Renal Disease, Hx Peritoneal Dialysis, Hx Pelvic Inflammatory Disease Malignancy Medical History: Denies: Hx Breast Cancer, Hx Cervical Cancer, Hx Ovarian Cancer GI Medical History: Reports: Hx Gastroesophageal Reflux Disease, Hx Irritable Bowel Musculoskeltal Medical History: Reports Hx Arthritis, Reports Hx Musculoskeletal Deformity, Reports Hx Musculoskeletal Trauma Psychiatric Medical History: Reports: Hx Bipolar Disorder, Hx Depression, Hx Schizophrenia Denies: Hx Post Traumatic Stress Disorder Traumatic Medical History: Past Surgical History: Reports: Hx Abdominal Surgery - Ex Lap, Hx Appendectomy - Ex Lap, Hx Section, Hx Gynecologic Surgery - hyst, Hx Hysterectomy, Hx Orthopedic Surgery - Postop day 5 right total knee arthroplasty, Hx Thyroid Surgery, Hx Tonsillectomy - Immunizations Immunizations up to date: Yes Hx Diphtheria, Pertussis, Tetanus Vaccination: Yes Hx Pneumococcal Vaccination: 12/15/15 Vertical Provider Document - CONSTITUTIONAL Agree With Documented VS: No - HR 100 apical Exam Limitations: No Limitations General Appearance: WD/WN, No Apparent Distress - INFECTION CONTROL TRAVEL OUTSIDE OF THE [place] IN LAST 30 DAYS: No - HEENT HEENT: Atraumatic, Normocephalic - NECK Neck: Normal Inspection, Supple - RESPIRATORY Respiratory: Breath Sounds Normal, No Respiratory Distress - CARDIOVASCULAR Cardiovascular: Regular Rhythm, No Murmur, Tachycardia - 100 beats Pulses: Normal: Dorsalis pedis - BACK Back: Normal Inspection - MUSCULOSKELETAL/EXTREMETIES Musculoskeletal/Extremeties: MAEW, FROM, Tender - Generalized right knee joint tenderness with 2-3+ edema, Eccymosis - NEURO Level of Consciousness: Awake, Alert, Appropriate Motor/Sensory: No Motor Deficit - DERM Integumentary: Warm, Dry Course - Re-evaluation Re-evalutation: 08/18/17 04:[address] Snow, Dr. Snow to bedside for examination. No concern for septic joint at this time, recommends giving patient a single dose of pain medication here and having patient follow up with her surgeon on Saturday as planned. 08/18/17 05:05 Patient does have a documented history of opioid abuse in the past. Review of controlled substance database reviews patient has had several narcotic prescriptions over the past several months from multiple providers. Patient should still have pain medication left given her most recent prescription that was filled on 08/12/2017. Patient acknowledges taking more medication than was prescribed causing her to run out of pain medicine 4 days ago. - Vital Signs Vital signs: Temp Pulse Resp BP Pulse Ox 99.4 F 128 H 18 161/111 H 96 08/18/17 03:52 08/18/17 03:52 08/18/17 03:52 08/18/17 03:52 08/18/17 03:52 Discharge - Discharge Clinical Impression: Post-operative pain Right knee pain Qualifiers: Chronicity: unspecified Qualified Code(s): M25.561 - Pain in right knee Condition: Stable Disposition: HOME, SELF-CARE Instructions: [facility] ([facility]) Additional Instructions: Return immediately for any new or worsening symptoms Followup with your primary care provider, call tomorrow to make a followup appointment Follow-up with your surgeon on Saturday as planned Referrals: YEE LEONARD PA-C [Primary Care Provider] - Follow up as needed MECHE CLIFFORD MD [ACTIVE STAFF] - 08/20/17
[2017-08-18 05:44] VITALS: BP 157/106
== END 2017-08-18 05:30 | disposition home or self-care (01) ==
LOC: ER 03:45
DX: G89.18 Other acute postprocedural pain (principal); M25.561 Pain in right knee; Z96.651 Presence of right artificial knee joint; E78.00 Pure hypercholesterolemia, unspecified; I10 Essential (primary) hypertension; Z86.73 Personal history of transient ischemic attack (TIA), and cerebral infarction without residual deficits; Z87.442 Personal history of urinary calculi; Z90.710 Acquired absence of both cervix and uterus
CPT/HCPCS: 99283; A9270

== ENCOUNTER 2017-08-26 21:47 | Emergency (ER) | payer MEDICARE, MEDICAID ==
[2017-08-26 22:43] VITALS: BP 127/107
[2017-08-27] MEDS ORDERED: OXYCODONE-ACETAMINOPHEN 5-325 MG TABLET PO ONE (01:15)
--- NOTE | 2017-08-27 01:20 | ER Document Report ---
ED Extremity Problem, Lower - General Chief Complaint: Post op Knee pain (surgery 07/29/17 T[facility]) Stated Complaint: RT KNEE PAIN Time Seen by Provider: 08/27/17 01:04 Mode of Arrival: Ambulatory Information source: Patient TRAVEL OUTSIDE OF THE [place] IN LAST 30 DAYS: No - HPI Patient complains to provider of: Pain Notes: Patient is here with complaints of right knee pain. Patient has a history of chronic right knee pain. She had knee replacement done by Dr. Clifford last month. She is here due to the fact that she was given a prescription for hydrocodone at her last appointment with Dr. Clifford's office and is allergic to hydrocodone. She states that she has an appointment to see him tomorrow but is having increasing pain at this time. In reviewing her records she has been seen in the emergency department multiple times for pain complaints regarding this postop operative knee. She denies any new falls or injuries. No fever. No redness. No nausea, vomiting, diarrhea. No numbness, tingling and weakness. Pain is worse with walking. Nothing seems to make it better. No other complaints at this time. - Related Data Allergies/Adverse Reactions: hydrocodone [Hydrocodone] Allergy (Severe, Verified 08/11/17 15:05) sertraline HCl [From Zoloft] Allergy (Severe, Verified 08/11/17 15:05) hives, resp arrest propranolol HCl [From Inderal] Allergy (Intermediate, Verified 08/11/17 15:05) Hives ondansetron Allergy (Unknown, Verified 08/11/17 15:05) ketorolac [From Toradol] Allergy (Verified 08/11/17 15:05) lamotrigine [From Lamictal] Allergy (Verified 08/11/17 15:05) propranolol Allergy (Verified 08/11/17 15:05) Past Medical History - Social History Smoking Status: Unknown if Ever Smoked Family History: Arthritis, CVA, Hyperlipidemia, Hypertension, Malignancy, Thyroid Disfunction - Past Medical History Cardiac Medical History: Reports: Hx Hypercholesterolemia, Hx Hypertension Pulmonary Medical History: Reports: Hx Asthma Neurological Medical History: Reports: Hx Cerebrovascular Accident, Hx Migraine Endocrine Medical History: Reports: Hx Diabetes Mellitus Type 2 - borderline diet controlled, Hx Hypothyroidism - Thyroid removed. Denies: Hx Graves' Disease, Hx Hyperthyroidism Renal/ Medical History: Reports: Hx Kidney Stones, Hx Ovarian Cysts. Denies: Hx End Stage Renal Disease, Hx Peritoneal Dialysis, Hx Pelvic Inflammatory Disease Malignancy Medical History: Denies: Hx Breast Cancer, Hx Cervical Cancer, Hx Ovarian Cancer GI Medical History: Reports: Hx Gastroesophageal Reflux Disease, Hx Irritable Bowel Musculoskeltal Medical History: Reports Hx Arthritis, Reports Hx Musculoskeletal Deformity, Reports Hx Musculoskeletal Trauma Psychiatric Medical History: Reports: Hx Bipolar Disorder, Hx Depression, Hx Schizophrenia Denies: Hx Post Traumatic Stress Disorder Traumatic Medical History: Past Surgical History: Reports: Hx Abdominal Surgery - Ex Lap, Hx Appendectomy - Ex Lap, Hx Section, Hx Gynecologic Surgery - hyst, Hx Hysterectomy, Hx Orthopedic Surgery - Postop day 5 right total knee arthroplasty, Hx Thyroid Surgery, Hx Tonsillectomy - Immunizations Immunizations up to date: Yes Hx Diphtheria, Pertussis, Tetanus Vaccination: Yes Hx Pneumococcal Vaccination: 12/15/15 Review of Systems - Review of Systems -: Yes All other systems reviewed and negative Physical Exam - Vital signs Vitals: Temp Pulse BP Pulse Ox 99.3 F 90 127/107 H 98 08/26/17 22:42 08/26/17 22:42 08/26/17 22:42 08/26/17 22:42 - Notes Notes: GENERAL: alert, cooperative, nontoxic, no distress. HEAD: normocephalic, atraumatic EYES: conjunctiva pink without discharge, no external redness or swelling. EARS: no external swelling, no external redness NOSE: atraumatic, no external swelling MOUTH/THROAT: mucous membranes moist and pink NECK: soft, supple, full range of motion, no meningismus. CHEST: no distress, lungs clear and equal throughout. No wheezing, rales, rhonchi. CARDIAC: regular rate and rhythm, no murmur, normal capillary refill, normal pulses. BACK: full range of motion, no CVA tenderness. EXTREMITIES: full range of motion of all extremities. Healing postsurgical incision to the right anterior knee. No redness. Full range of motion. Normal pulse and sensation distally. NEURO: alert and oriented 3, no focal deficits, full range of motion of all extremities. PYSCH: appropriate mood, affect. Patient is cooperative. SKIN: pink, warm, dry, no rash. Course - Re-evaluation Re-evalutation: 08/27/17 01:17 Patient is nontoxic appearing stable vitals. Patient is here with complaints of right knee pain. She had total knee replacement done last month with Dr. Clifford. She is allergic to hydrocodone was given a prescription for hydrocodone her last appointment and is requesting some pain medication. In reviewing her records, the patient has been seen multiple times in the emergency department for pain complaints regarding this knee. She has been given multiple prescriptions by multiple providers in the past. I explained that I can give her a dose of pain medication while she is in the emergency department, but that she cannot be given another prescription from the emergency department for chronic pain. This point the patient has no signs of septic arthritis or infection. She can be discharged home with instructions to follow-up with Dr. Clifford tomorrow. I will also instruct her that she cannot continue to come to the emergency department for chronic pain as we will no longer be able to continue giving her pain medication. She should follow-up with Dr. Clifford as scheduled tomorrow. Follow-up sooner for worsening pain, fever, numbness, tingling, weakness, any further concerns. The patient is noted to have elevated blood pressure during today's emergency department visit. The patient was informed of this finding. The patient was instructed that this may be related to pre-hypertension and requires further evaluation with a primary care provider. The patient has no hypertensive symptoms at this time. The patient's emergency department workup and current diagnosis were explained to the patient and or family. Follow-up instructions were provided. Medications if prescribed were discussed. Instructions for when to return to the emergency department including specific worrisome symptoms were discussed with the patient and/or family. - Vital Signs Vital signs: Temp Pulse Resp BP Pulse Ox 99.3 F 90 127/107 H 98 08/26/17 22:42 08/26/17 22:42 08/26/17 22:42 08/26/17 22:42 Discharge - Discharge Clinical Impression: Chronic pain of right knee Condition: Stable Disposition: HOME, SELF-CARE Instructions: Chronic Pain Control ([facility]) Additional Instructions: Follow-up with Dr. Clifford as scheduled tomorrow. We are unable to continue treating chronic pain from the emergency department. He will need to follow-up with Dr. Clifford or your primary care physician regarding any further chronic pain control needs. Follow-up sooner for any worsening symptoms, fever, redness , numbness, tingling, weakness, any further concerns. Your blood pressure was elevated during today's visit. Have this rechecked with your doctor. Forms: Elevated Blood Pressure, Smoking Cessation Education Referrals: MECHE CLIFFORD MD [ACTIVE STAFF] - Follow up as needed
== END 2017-08-27 01:42 | disposition home or self-care (01) ==
LOC: ER 21:47
DX: G89.29 Other chronic pain (principal); M25.561 Pain in right knee; I10 Essential (primary) hypertension; J45.909 Unspecified asthma, uncomplicated; Z96.651 Presence of right artificial knee joint; Z88.5 Allergy status to narcotic agent; Z88.8 Allergy status to other drugs, medicaments and biological substances
CPT/HCPCS: 99283; A9270

== ENCOUNTER 2017-08-30 10:01 | Emergency (ER) | payer MEDICARE, MEDICAID ==
[2017-08-30] MEDS ORDERED: KETOROLAC TROMETHAMINE 60 MG/2 ML SDV IM ONE (11:37)
[2017-08-30] MEDS ORDERED: DEXAMETHASONE SOD PHOS INJ 10 MG/1 ML VIAL IM ONE (11:37)
--- NOTE | 2017-08-30 11:42 | ER Document Report ---
ED Neck/Back Problem - General Chief Complaint: Low Back Pain Stated Complaint: LOW BACK PAIN Time Seen by Provider: 08/30/17 11:31 Mode of Arrival: Ambulatory Information source: Patient Notes: -year-old female presents to ED for complaint of low back pain with sciatica flareup going down her right buttocks. She states that she has a chronic history with the back pain and sciatica. She states she was told by the orthopedic surgeon that it would go away with her knee repair but she had the knee repair 4 weeks ago and is has not gotten any better. She states she needs something to calm down the sciatic pain. She states she has an appointment with [facility] in the beginning of September but needs something for right now. She has had Toradol and Decadron in the past and it is helped and she would like to have that at this time. TRAVEL OUTSIDE OF THE [place] IN LAST 30 DAYS: No - HPI Patient complains to provider of: Lower back Onset: Other - Chronic Onset: Chronic Timing: Worse Quality of pain: Sharp Severity: Severe Pain Level: 5 Recent injury: No Associated symptoms: Like prior neck/back pain, Radiation to leg, Lower back pain. denies: Incontinence, Motor loss, Numbness/tingling, Radiation to arm, Radiation to chest, Sensory loss, Sweaty, Unable to urinate, Upper back pain Exacerbated by: Movement of trunk Relieved by: Nothing Similar symptoms previously: Yes Recently seen / treated by doctor: Yes - Related Data Allergies/Adverse Reactions: hydrocodone [Hydrocodone] Allergy (Severe, Verified 08/11/17 15:05) sertraline HCl [From Zoloft] Allergy (Severe, Verified 08/11/17 15:05) hives, resp arrest propranolol HCl [From Inderal] Allergy (Intermediate, Verified 08/11/17 15:05) Hives ondansetron Allergy (Unknown, Verified 08/11/17 15:05) lamotrigine [From Lamictal] Allergy (Verified 08/11/17 15:05) propranolol Allergy (Verified 08/11/17 15:05) Past Medical History - Social History Smoking Status: Never Smoker Cigarette use (# per day): No Chew tobacco use (# tins/day): No Smoking Education Provided: No Frequency of alcohol use: Occasional Drug Abuse: None Family History: Arthritis, CVA, Hyperlipidemia, Hypertension, Malignancy, Thyroid Disfunction Patient has suicidal ideation: No Patient has homicidal ideation: No - Past Medical History Cardiac Medical History: Reports: Hx Hypercholesterolemia, Hx Hypertension Pulmonary Medical History: Reports: Hx Asthma EENT Medical History: Reports: None Neurological Medical History: Reports: Hx Cerebrovascular Accident, Hx Migraine Endocrine Medical History: Reports: Hx Diabetes Mellitus Type 2 - borderline diet controlled, Hx Hypothyroidism - Thyroid removed Renal/ Medical History: Reports: Hx Kidney Stones, Hx Ovarian Cysts Malignancy Medical History: Reports: None GI Medical History: Reports: Hx Gastroesophageal Reflux Disease, Hx Irritable Bowel Musculoskeltal Medical History: Reports Hx Arthritis, Reports Hx Musculoskeletal Deformity, Reports Hx Musculoskeletal Trauma Skin Medical History: Reports None Psychiatric Medical History: Reports: Hx Bipolar Disorder, Hx Depression, Hx Schizophrenia Traumatic Medical History: Reports: None Infectious Medical History: Reports: None Past Surgical History: Reports: Hx Abdominal Surgery - Ex Lap, Hx Appendectomy - Ex Lap, Hx Section, Hx Gynecologic Surgery - hyst, Hx Hysterectomy, Hx Orthopedic Surgery - Postop day 5 right total knee arthroplasty, Hx Thyroid Surgery, Hx Tonsillectomy - Immunizations Immunizations up to date: Yes Hx Diphtheria, Pertussis, Tetanus Vaccination: Yes Hx Pneumococcal Vaccination: 12/15/15 Review of Systems - Review of Systems Constitutional: No symptoms reported EENT: No symptoms reported Cardiovascular: No symptoms reported Respiratory: No symptoms reported Gastrointestinal: No symptoms reported Genitourinary: No symptoms reported Female Genitourinary: No symptoms reported Musculoskeletal: Back pain, Other - Knee is healing after her total knee replacement on the right knee is feeling much better now with therapy Skin: No symptoms reported Hematologic/Lymphatic: No symptoms reported Neurological/Psychological: No symptoms reported -: Yes All other systems reviewed and negative Physical Exam - Vital signs Vitals: Temp Pulse Resp BP Pulse Ox 99.8 F 93 20 136/83 H 100 08/30/17 10:08 08/30/17 10:08 08/30/17 10:08 08/30/17 10:08 08/30/17 10:08 Interpretation: Normal - General General appearance: Appears well, Alert - HEENT Head: Normocephalic, Atraumatic Eyes: Normal Pupils: PERRL - Respiratory Respiratory status: No respiratory distress Chest status: Nontender Breath sounds: Normal Chest palpation: Normal - Cardiovascular Rhythm: Regular Heart sounds: Normal auscultation Murmur: No - Abdominal Inspection: Normal Distension: No distension Bowel sounds: Normal Tenderness: Nontender Organomegaly: No organomegaly - Back Back: Normal, Tender. No: Deformity/step-off, CVA tenderness, Scars, Scoliosis - Extremities General upper extremity: Normal inspection, Nontender, Normal color, Normal ROM , Normal temperature General lower extremity: Normal color, Normal ROM, Normal temperature, Normal weight bearing. No: Juliana's sign Knee: Tender - Recent total knee replacement, Pain with ROM - Neurological Neuro grossly intact: Yes Cognition: Normal Orientation: AAOx4 Vicky Coma Scale Eye Opening: Spontaneous [place] Coma Scale Verbal: Oriented Vicky Coma Scale Motor: Obeys Commands [place] Coma Scale Total: 15 Speech: Normal Motor strength normal: LUE, RUE, LLE, RLE Sensory: Normal - Psychological Associated symptoms: Normal affect, Normal mood - Skin Skin Temperature: Warm Skin Moisture: Dry Skin Color: Normal Course - Re-evaluation Re-evalutation: 08/30/17 11:46 After performing a Medical Screening Examination, I estimate there is LOW risk for EXPANDING OR RUPTURED ABDOMINAL AORTIC ANEURYSM, CAUDA EQUINA SYNDROME, EPIDURAL MASS LESION, or HERNIATED DISK CAUSING SEVERE SPINAL STENOSIS, thus I consider the discharge disposition reasonable. I have reevaluated this patient multiple times and no significant life threatening changes are noted. The patient and I have discussed the diagnosis and risks, and we agree with discharging home and close follow-up. We also discussed returning to the Emergency Department immediately if new or worsening symptoms occur with the understanding that symptoms and presentations can change. We have discussed the symptoms which are most concerning (e.g., saddle anesthesia, urinary or bowel incontinence or retention, changing or worsening pain) that necessitate immediate return. - Vital Signs Vital signs: Temp Pulse Resp BP Pulse Ox 97.9 F 86 17 129/89 H 99 08/30/17 11:56 08/30/17 11:56 08/30/17 11:56 08/30/17 11:56 08/30/17 11:56 Discharge - Discharge Clinical Impression: Chronic low back pain with sciatica Qualifiers: Back pain laterality: bilateral Sciatica laterality: sciatica of right side Qualified Code(s): M54.41 - Lumbago with sciatica, right side Condition: Stable Disposition: HOME, SELF-CARE Instructions: Family Physicians / Practices Additional Instructions: Chronic Back Pain Chronic back pain (pain persisting longer than three months) is a common problem. A medical evaluation can look for herniated disc, arthritis, osteoporosis, tumors, and infections. But at least half the time, there's no obvious treatable cause. Anxiety and depression tend to worsen back pain. Ibuprofen or other anti-inflammatory medicine can help. A heating pad, used for 15-20 minutes at a time, can ease pain. For this type of back pain, narcotic medicines should be avoided. Muscle relaxers are rarely helpful unless you're having spasms. Activity is important. Find an aerobic exercise program that your back can tolerate. Too much rest makes back pain worse. Specific back exercises are usually prescribed to strengthen the back and abdominal muscles. Often, a physical therapist can help. Avoid heavy lifting, working while bent over, or standing with both knees straight. Most back pain patients do better with a firm mattress. If new symptoms of a "herniated disc" (radiation of pain, numbness, or tingling down the back of the leg or weakness in the leg) occur, you should be re-examined. Chronic Pain Control Stress, inactivity, and depression make pain more severe regardless of the cause of the pain. Stress and poor physical condition can cause pain such as headaches and backache. Relaxation: Rest in a quiet place with your eyes closed for 20 minutes twice daily. Concentrate on a pleasant image, or simply "feel" your breathing. Clear your mind. Stress management: Deal with your "stressors." Either take action, or eliminate the stressor from your life. Don't let things hang over you. Accept those things you can't change. Nutrition: Eat small, balanced meals -- don't skip, don't overeat. Meals should be high-carbohydrate, low-sugar, low-fat. Exercise: Exercise helps painful conditions and eases stress. Get 30 minutes of moderate exercise, five days a week. Do an activity that does not flare your pain. Precautions: Pain which continues to disrupt daily activities, or which changes in nature, requires a medical evaluation. Pain Clinic referral is available. We do not manage chronic pain in the Emergency Department. We will try to appropriately help you through an acute flare of your chronic painful condition , but for on-going chronic pain that does not improve, you will need to see your private doctor or cloth painter. We do not provide repeated medication management of chronic painful conditions. If you wish, we can provide the name of local pain management physicians. STEROID MEDICATION: You have been given an injection of medicine of the cortisone/steroid class. This medication is used to control inflammation or allergy. It is often continued as a pill for a short period of time, until the acute process subsides. There are usually no side effects from short-term use of cortisone-like medications. Some persons feel an increased sense of well-being and are not sleepy at bedtime. Long-term use of cortisone medications is best avoided, unless required for a severe condition. If your condition does not remit, or relapses after the course of corticosteroid medication, you should consult your physician. ICE PACKS: Apply ice packs frequently against the painful area. Many different schedules are recommended, such as "20 minutes on, 20 minutes off" or "one hour ice, two hours rest." If you need to work, you may need to go longer between ice treatments. You should plan to have the area ice packed AT LEAST one fourth of the time. The ice should be applied over the wrap, tape, or splint, or over a layer of cloth -- not directly against the skin. Some ice bags have a built-in cloth and can be put directly on the skin. Toradol Injection You have been given an injection of ketorolac tromethamine (Toradol). This is an excellent, safe drug for pain control. It also has potent antiinflammatory action. You should have significant pain relief within about one hour. Toradol is not addicting and is non-sedating. It does not interfere with driving or work. Call or return if you develop itching, hives, shortness of breath, or rash. Stretching Exercises for the Back The physician has recommended that you begin stretching exercises for your back. These are often used even while the back is painful. However, you should notify the physician if the activities seem to increase your pain. PELVIC TILT: Lie flat on your back with knees bent. Tighten your stomach and buttock muscles so it flattens your lower back against the floor. Hold 10 seconds. Repeat 10 times, twice daily. KNEE RAISE: Lying on the back with knees bent, raise one knee to your chest, then the other. Hold both knees against the chest 10 seconds, then lower one knee at a time. Repeat 10 times, twice daily. PARTIAL TRUNK RAISE: Lie face down, arms at your sides. Keeping your waist on the floor, use your arms raise your chest up. Support yourself on your elbows for 30 seconds. Repeat twice daily, increasing the time to two minutes as you recover. WARM PACKS: After approximately two days, apply gentle heat (such as a heating pad or hot water bottle) for about 20 to 30 minutes about every two hours -- at least four times daily. Warmth and elevation will help you make a more rapid recovery , and will ease the pain considerably. Do not use HOT heat, and never apply heat for longer than 30 minutes. The continuous heat can invisibly damage skin and muscles -- even when no burn is seen on the surface. Damaged muscles can make you MORE sore. FOLLOW-UP CARE: If you have been referred to a physician for follow-up care, call the physician s office for an appointment as you were instructed or within the next two days. If you experience worsening or a significant change in your symptoms, notify the physician immediately or return to the Emergency Department at any time for re-evaluation. Please keep your appointment with [facility] as scheduled so they can help you with your chronic pain. Forms: Elevated Blood Pressure
[2017-08-30 11:56] VITALS: BP 129/89
== END 2017-08-30 11:57 | disposition home or self-care (01) ==
LOC: ER 10:01
DX: M54.41 Lumbago with sciatica, right side (principal); M54.2 Cervicalgia; E78.00 Pure hypercholesterolemia, unspecified; I10 Essential (primary) hypertension; Z96.651 Presence of right artificial knee joint; Z88.6 Allergy status to analgesic agent; Z86.73 Personal history of transient ischemic attack (TIA), and cerebral infarction without residual deficits; Z87.442 Personal history of urinary calculi; Z90.710 Acquired absence of both cervix and uterus
CPT/HCPCS: 99283; 96372; J1885; J1100

== ENCOUNTER 2017-09-01 05:09 | Emergency (ER) | payer MEDICARE, MEDICAID ==
--- NOTE | 2017-09-01 05:49 | ER Document Report ---
ED Extremity Problem, Lower - General Chief Complaint: Knee Pain Stated Complaint: KNEE PAIN Time Seen by Provider: 09/01/17 05:47 Mode of Arrival: Ambulatory Information source: Patient Notes: Patient is a 61-year-old female who is very well-known to this emergency department who presents to the ER today for right knee pain post total knee replacement in July of this year. Patient has been seen here even over the last 48 hours for the same complaint. Patient denies any fever, chills, redness , drainage or heat to the right knee. Patient states that she stopped physical therapy and then he has been hurting worse since that time. She states she has nothing at home to take for the pain and has been trying ibuprofen which is not helping. She denies any numbness or tingling anywhere. TRAVEL OUTSIDE OF THE [place] IN LAST 30 DAYS: No - Related Data Allergies/Adverse Reactions: hydrocodone [Hydrocodone] Allergy (Severe, Verified 08/11/17 15:05) sertraline HCl [From Zoloft] Allergy (Severe, Verified 08/11/17 15:05) hives, resp arrest propranolol HCl [From Inderal] Allergy (Intermediate, Verified 08/11/17 15:05) Hives ondansetron Allergy (Unknown, Verified 08/11/17 15:05) lamotrigine [From Lamictal] Allergy (Verified 08/11/17 15:05) propranolol Allergy (Verified 08/11/17 15:05) Past Medical History - General Information source: Patient - Social History Smoking Status: Unknown if Ever Smoked Family History: Arthritis, CVA, Hyperlipidemia, Hypertension, Malignancy, Thyroid Disfunction - Past Medical History Cardiac Medical History: Reports: Hx Hypercholesterolemia, Hx Hypertension Pulmonary Medical History: Reports: Hx Asthma Neurological Medical History: Reports: Hx Cerebrovascular Accident, Hx Migraine Endocrine Medical History: Reports: Hx Diabetes Mellitus Type 2 - borderline diet controlled, Hx Hypothyroidism - Thyroid removed. Denies: Hx Graves' Disease, Hx Hyperthyroidism Renal/ Medical History: Reports: Hx Kidney Stones, Hx Ovarian Cysts. Denies: Hx End Stage Renal Disease, Hx Peritoneal Dialysis, Hx Pelvic Inflammatory Disease Malignancy Medical History: Denies: Hx Breast Cancer, Hx Cervical Cancer, Hx Ovarian Cancer GI Medical History: Reports: Hx Gastroesophageal Reflux Disease, Hx Irritable Bowel Musculoskeltal Medical History: Reports Hx Arthritis, Reports Hx Musculoskeletal Deformity, Reports Hx Musculoskeletal Trauma Psychiatric Medical History: Reports: Hx Bipolar Disorder, Hx Depression, Hx Schizophrenia Denies: Hx Post Traumatic Stress Disorder Traumatic Medical History: Past Surgical History: Reports: Hx Abdominal Surgery - Ex Lap, Hx Appendectomy - Ex Lap, Hx Section, Hx Gynecologic Surgery - hyst, Hx Hysterectomy, Hx Orthopedic Surgery - Postop day 5 right total knee arthroplasty, Hx Thyroid Surgery, Hx Tonsillectomy - Immunizations Immunizations up to date: Yes Hx Diphtheria, Pertussis, Tetanus Vaccination: Yes Hx Pneumococcal Vaccination: 12/15/15 Review of Systems - Review of Systems Constitutional: No symptoms reported EENT: No symptoms reported Cardiovascular: No symptoms reported Respiratory: No symptoms reported Gastrointestinal: No symptoms reported Genitourinary: No symptoms reported Female Genitourinary: No symptoms reported Musculoskeletal: See HPI Skin: No symptoms reported Hematologic/Lymphatic: No symptoms reported Neurological/Psychological: No symptoms reported Physical Exam - Vital signs Vitals: Temp Pulse Resp BP Pulse Ox 98.9 F 93 17 150/49 H 98 09/01/17 05:18 09/01/17 05:18 09/01/17 05:18 09/01/17 05:18 09/01/17 05:18 - Notes Notes: PHYSICAL EXAMINATION: GENERAL: Well-appearing and in no acute distress. HEAD: Atraumatic, normocephalic. EYES: Pupils equal round and reactive to light, extraocular movements intact, sclera anicteric, conjunctiva are normal. NECK: Normal range of motion, supple without lymphadenopathy LUNGS: CTAB and equal. No wheezes rales or rhonchi. HEART: Regular rate and rhythm without murmurs ABDOMEN: Soft, no tenderness. No guarding, no rebound BACK: no vertebral tenderness, normal ROM GI/: no CVA tenderness EXTREMITIES: Limited range of motion of the right knee secondary to pain, no pain with varus or valgus stressing, anterior drawer test negative but limited due to patient's pain and history of recent knee replacement., no pitting edema. No cyanosis. NEUROLOGICAL: Cranial nerves grossly intact. Normal sensory/motor exams. PSYCH: Normal mood, normal affect. SKIN: Warm, Dry, normal turgor, healed vertical scar over anterior right knee, no acute edema, erythema, fluctuance or drainage, no warmth to the knee, no Matt's cyst noted Course - Re-evaluation Re-evalutation: 09/01/17 05:22 I see no reason to perform x-rays today as patient has been seen here many times even recently for the same complaint without any new injury. Patient will be given something for pain here but not sent home with anything. - Vital Signs Vital signs: Temp Pulse Resp BP Pulse Ox 98.3 F 78 16 128/89 H 100 09/01/17 06:41 09/01/17 06:41 09/01/17 06:41 09/01/17 06:41 09/01/17 06:41 Discharge - Discharge Clinical Impression: History of knee replacement Qualifiers: Laterality: right Qualified Code(s): Z96.651 - Presence of right artificial knee joint Condition: Stable Disposition: HOME, SELF-CARE Additional Instructions: Return immediately for any new or worsening symptoms. Follow up with primary care provider, call tomorrow to make followup appointment. We will not give you narcotic pain medication here in the emergency department for chronic issue.
[2017-09-01] MEDS ORDERED: OXYCODONE-ACETAMINOPHEN 5-325 MG TABLET PO ONE (05:53)
[2017-09-01 06:43] VITALS: BP 128/89
[2017-09-02] MEDS ORDERED: OXYCODONE-ACETAMINOPHEN 5-325 MG TABLET PO PRN (19:20)
[2017-09-02] MEDS ORDERED: MORPHINE SULFATE 10 MG/ML INJ IV PRN (19:20)
[2017-09-03] MEDS ORDERED: VANCOMYCIN HCL 1,000 MG in DEXTROSE 5%-WATER 250 ML IV ONE (07:17)
== END 2017-09-01 06:44 | disposition home or self-care (01) ==
LOC: ER 05:09
DX: Z96.651 Presence of right artificial knee joint (principal); M25.561 Pain in right knee; I10 Essential (primary) hypertension; J45.909 Unspecified asthma, uncomplicated; E11.9 Type 2 diabetes mellitus without complications
CPT/HCPCS: 99282; A9270

== ENCOUNTER 2017-09-02 12:49 | Inpatient (IN) | payer MEDICARE, MEDICAID, OTHER ==
[2017-09-02] MEDS ORDERED: VANCOMYCIN HCL INJ 1000 MG VIAL IV ONE ×2 (13:24→18:00)
[2017-09-02] MEDS ORDERED: IBUPROFEN 600 MG TABLET PO ONE (13:24)
--- NOTE | 2017-09-02 13:26 | ER Document Report ---
ED Medical Screen (RME) - General Chief Complaint: Knee Pain Stated Complaint: KNEE PAIN Time Seen by Provider: 09/02/17 13:19 Notes: RAPID MEDICAL EVALUATION DISCLOSURE I have seen this patient as part of a Rapid Medical Evaluation and, if applicable, placed any initially appropriate orders. The patient will be seen and fully evaluated, including a full history and physical exam, by a provider ( in Main ED or Fast Track) when a room becomes available. 61-year-old female status post knee surgery approximately 1 month ago here with complaints of right knee and calf swelling pain and redness ongoing for the past 1 week. The swelling was noticed this morning and occurred overnight. The redness has been ongoing for a few days now. She has had fevers of 102 Fahrenheit at home. She has been taking ibuprofen for the symptoms. She has not been able to get in contact with Dr. Pinedo who performed the surgery. EXAM Mild to moderate right knee and calf swelling and TTP Mild diffuse erythema of the right knee and anterior right leg No purulent drainage visualized TRAVEL OUTSIDE OF THE [place] IN LAST 30 DAYS: No - Related Data Allergies/Adverse Reactions: hydrocodone [Hydrocodone] Allergy (Severe, Verified 09/02/17 13:19) sertraline HCl [From Zoloft] Allergy (Severe, Verified 09/02/17 13:19) hives, resp arrest propranolol HCl [From Inderal] Allergy (Intermediate, Verified 09/02/17 13:19) Hives ondansetron Allergy (Unknown, Verified 09/02/17 13:19) lamotrigine [From Lamictal] Allergy (Verified 09/02/17 13:19) propranolol Allergy (Verified 09/02/17 13:19) Past Medical History - Social History Chew tobacco use (# tins/day): No Frequency of alcohol use: None Drug Abuse: None Family history: Reviewed & Not Pertinent - Past Medical History Cardiac Medical History: Reports: Hx Hypercholesterolemia, Hx Hypertension Pulmonary Medical History: Reports: Hx Asthma Neurological Medical History: Reports: Hx Cerebrovascular Accident, Hx Migraine Endocrine Medical History: Reports: Hx Diabetes Mellitus Type 2 - borderline diet controlled, Hx Hypothyroidism - Thyroid removed. Denies: Hx Graves' Disease, Hx Hyperthyroidism Renal/ Medical History: Reports: Hx Kidney Stones, Hx Ovarian Cysts. Denies: Hx End Stage Renal Disease, Hx Peritoneal Dialysis, Hx Pelvic Inflammatory Disease Malignancy Medical History: Denies: Hx Breast Cancer, Hx Cervical Cancer, Hx Ovarian Cancer GI Medical History: Reports: Hx Gastroesophageal Reflux Disease, Hx Irritable Bowel Musculoskeltal Medical History: Reports Hx Arthritis, Reports Hx Musculoskeletal Deformity, Reports Hx Musculoskeletal Trauma Psychiatric Medical History: Reports: Hx Bipolar Disorder, Hx Depression, Hx Schizophrenia Denies: Hx Post Traumatic Stress Disorder Traumatic Medical History: Past Surgical History: Reports: Hx Abdominal Surgery - Ex Lap, Hx Appendectomy - Ex Lap, Hx Section, Hx Gynecologic Surgery - hyst, Hx Hysterectomy, Hx Orthopedic Surgery - Postop day 5 right total knee arthroplasty, Hx Thyroid Surgery, Hx Tonsillectomy - Immunizations Immunizations up to date: Yes Hx Diphtheria, Pertussis, Tetanus Vaccination: Yes Physical Exam - Vital signs Vitals: Temp Pulse Resp BP Pulse Ox 100.4 F 103 H 20 139/84 H 97 09/02/17 12:59 09/02/17 12:59 09/02/17 12:59 09/02/17 12:59 09/02/17 12:59 Course - Vital Signs Vital signs: Temp Pulse Resp BP Pulse Ox 100.4 F 103 H 20 139/84 H 97 09/02/17 12:59 09/02/17 12:59 09/02/17 12:59 09/02/17 12:59 09/02/17 12:59
[2017-09-02] MEDS ORDERED: OXYCODONE HCL IR 5 MG TABLET PO ONE (14:26)
--- NOTE | 2017-09-02 14:27 | RADIOLOGY REPORT (SQ) ---
EXAM DESCRIPTION: KNEE RIGHT 2 VIEWS COMPLETED DATE/TIME: 09/02/2017 1:54 pm REASON FOR STUDY: R knee and leg cellulitis; gas seen? Right total knee replacement 07/28/2017, with 2 days of right knee pain and swelling COMPARISON: 09/29/2012 NUMBER OF VIEWS: Two views TECHNIQUE: AP and lateral radiographic images acquired of the right knee. LIMITATIONS: None. FINDINGS: MINERALIZATION: Normal. BONES: No acute fracture or dislocation. Total knee replacement with patellar resurfacing. No lucen cy around the hardware worrisome for loosening. JOINT: Moderate size suprapatellar knee joint effusion. SOFT TISSUES: There is diffuse prepatellar soft tissue swelling. No radiopaque soft tissue foreign b flor OTHER: No other significant finding. IMPRESSION: Knee joint effusion with prepatellar soft tissue swelling. Findings could be posttrauma tic. Infectious or inflammatory change is also possible. No soft tissue gas. TECHNICAL DOCUMENTATION: JOB ID: [id number] [employer]- All Rights Reserved Reading location - IP/workstation name: [email or web address]
[2017-09-02 14:33] LABS: ABSOLUTE BASOPHILS # (AUTO) 0.2 10^3/uL (0.0-0.2); ABSOLUTE EOSINOPHILS # (AUTO) 0.2 10^3/uL (0.0-0.6); ABSOLUTE LYMPHOCYTES (AUTO) 4.2 10^3/uL (0.5-4.7); ABSOLUTE MONOCYTES (AUTO) 1.9 10^3/uL (0.1-1.4); ABSOLUTE NEUT (AUTO) 13.1 10^3/uL (1.7-8.2); BASOPHILS % (AUTO) 0.9 % (0-2); EOSINOPHILS % (AUTO) 0.8 % (0-6); LYMPHOCYTES % (AUTO) 21.5 % (13-45); MEAN CORPUSCULAR HEMOGLOBIN 30.8 pg (27.0-33.4); MEAN CORPUSCULAR HGB CONC 34.3 g/dL (32.0-36.0); MEAN CORPUSCULAR VOLUME 90 fl (80-97); MONOCYTES % (AUTO) 9.7 % (3-13); PLATELET COUNT 463 10^3/uL (150-450); RED BLOOD COUNT 4.22 10^6/uL (3.72-5.28); RED CELL DISTRIBUTION WIDTH 13.8 % (11.5-14.0); SEGMENTED NEUTROPHILS % (AUTO) 67.1 % (42-78); TOTAL CELLS COUNTED % (AUTO) 100 %; WHITE BLOOD COUNT 19.5 10^3/uL (4.0-10.5)
[2017-09-02 14:51] LABS: BLOOD UREA NITROGEN 12 mg/dL (7-20); CALCIUM 10.3 mg/dL (8.4-10.2); CHLORIDE 89 mmol/L (98-107); GLUCOSE 92 mg/dL (75-110)
[2017-09-02 14:57] LABS: CARBON DIOXIDE 27 mmol/L (22-30); SODIUM 134.3 mmol/L (137-145)
[2017-09-02 15:00] LABS: ANION GAP 18 (5-19)
[2017-09-02 15:22] LABS: ERYTHROCYTE SEDIMENTATION RATE 28 mm/hr (0-30)
--- NOTE | 2017-09-02 16:27 | RADIOLOGY REPORT (SQ) ---
EXAM DESCRIPTION: VENOUS UNILATERAL LOWER COMPLETED DATE/TIME: 09/02/2017 4:15 pm REASON FOR STUDY: R calf swelling s/p surgery; eval DVT COMPARISON: None. TECHNIQUE: Dynamic and static nicholas scale and color images acquired of the right leg venous system. S elected spectral images acquired with additional compression and augmentation maneuvers. The contrala teral common femoral vein and saphenofemoral junction were also imaged. Images stored on PACS. LIMITATIONS: None. FINDINGS: COMMON FEMORAL: Normal phasicity, compression and augmentation. No visualized echogenic ma terial on nicholas scale. No defects on color images. FEMORAL: Normal compression and augmentation. No visualized echogenic material on nicholas scale. No defe cts on color images. POPLITEAL: Normal compression, augmentation. No visualized echogenic material on nicholas scale. No defec ts on color images. CALF VESSELS: Normal compression, augmentation. No visualized echogenic material on nicholas scale. No de fects on color images. GSV and SSV: Normal compression, augmentation. No visualized echogenic material on nicholas scale. No def ects on color images. ANY DEEP VENOUS INSUFFICIENCY: Not evaluated. ANY EVIDENCE OF POPLITEAL CYST: No. OTHER: No other significant finding. CONTRALATERAL COMMON FEMORAL VEIN AND SAPHENOFEMORAL JUNCTION: Normal phasicity, compression and augmentation. No visualized echogenic material on nicholas scale. No de fects on color images. IMPRESSION: NO EVIDENCE DVT OR SVT IN THE RIGHT LEG. TECHNICAL DOCUMENTATION: JOB ID: [id number] [employer]- All Rights Reserved Reading location - IP/workstation name: [email or web address]
[2017-09-02] MEDS ORDERED: FENTANYL CITRATE INJ/PF 100 MCG/2 ML AMPUL IV ONE (18:22)
[2017-09-02] MEDS ORDERED: POTASSIUM CHLORIDE 10 MEQ TABLET.SA PO ONE (18:23)
[2017-09-02] MEDS ORDERED: LIDOCAINE 1% INJ (10 MG/ML) 10 ML MDV INJ ONE (18:31)
[2017-09-02] MEDS ORDERED: LIDOCAINE 1% INJ-PF (10 MG/ML) 30 ML SDV ONE (18:34)
[2017-09-02] MEDS ORDERED: CEFTRIAXONE INJ 1000 MG VIAL IV ONE (18:58)
[2017-09-02] MEDS ORDERED: NORMAL SALINE 1000 ML 1,000 ML IV ONE (19:00)
--- NOTE | 2017-09-02 19:01 | ER Document Report ---
ED General - General Chief Complaint: Knee Pain Stated Complaint: KNEE PAIN Time Seen by Provider: 09/02/17 13:19 Notes: Patient is a 61-year-old female with a past medical history of diabetes, morbid obesity, prior right knee replacement in July 2017 with a subsequent infection of the knee who presents again today with increasing right knee pain as well as fever. The patient reports a dull, throbbing, constant pain to the right knee that has been progressively worsening over the past 2 days. She states any attempt at moving the knee worsens the pain. Nothing improves the pain. She reports this feels similar to when she had a possible infection in July. She has been treating her fever with Tylenol. She denies any cough, shortness of breath, headache, neck pain or any other localizing infectious symptoms. She attempted to contact Dr. Pinedo but was unable to do so. TRAVEL OUTSIDE OF THE [place] IN LAST 30 DAYS: No - Related Data Allergies/Adverse Reactions: hydrocodone [Hydrocodone] Allergy (Severe, Verified 09/02/17 13:19) sertraline HCl [From Zoloft] Allergy (Severe, Verified 09/02/17 13:19) hives, resp arrest propranolol HCl [From Inderal] Allergy (Intermediate, Verified 09/02/17 13:19) Hives ondansetron Allergy (Unknown, Verified 09/02/17 13:19) lamotrigine [From Lamictal] Allergy (Verified 09/02/17 13:19) propranolol Allergy (Verified 09/02/17 13:19) Past Medical History - General Information source: Patient - Social History Smoking Status: Never Smoker Chew tobacco use (# tins/day): No Frequency of alcohol use: None Drug Abuse: None Lives with: Family Family History: Arthritis, CVA, Hyperlipidemia, Hypertension, Malignancy, Thyroid Disfunction Patient has suicidal ideation: No Patient has homicidal ideation: No - Past Medical History Cardiac Medical History: Reports: Hx Hypercholesterolemia, Hx Hypertension Pulmonary Medical History: Reports: Hx Asthma Neurological Medical History: Reports: Hx Cerebrovascular Accident, Hx Migraine Endocrine Medical History: Reports: Hx Diabetes Mellitus Type 2 - borderline diet controlled, Hx Hypothyroidism - Thyroid removed. Denies: Hx Graves' Disease, Hx Hyperthyroidism Renal/ Medical History: Reports: Hx Kidney Stones, Hx Ovarian Cysts. Denies: Hx End Stage Renal Disease, Hx Peritoneal Dialysis, Hx Pelvic Inflammatory Disease Malignancy Medical History: Denies: Hx Breast Cancer, Hx Cervical Cancer, Hx Ovarian Cancer GI Medical History: Reports: Hx Gastroesophageal Reflux Disease, Hx Irritable Bowel Musculoskeltal Medical History: Reports Hx Arthritis, Reports Hx Musculoskeletal Deformity, Reports Hx Musculoskeletal Trauma Psychiatric Medical History: Reports: Hx Bipolar Disorder, Hx Depression, Hx Schizophrenia Denies: Hx Post Traumatic Stress Disorder Traumatic Medical History: Past Surgical History: Reports: Hx Abdominal Surgery - Ex Lap, Hx Appendectomy - Ex Lap, Hx Section, Hx Gynecologic Surgery - hyst, Hx Hysterectomy, Hx Orthopedic Surgery - Postop day 5 right total knee arthroplasty, Hx Thyroid Surgery, Hx Tonsillectomy - Immunizations Immunizations up to date: Yes Hx Diphtheria, Pertussis, Tetanus Vaccination: Yes Hx Pneumococcal Vaccination: 12/15/15 Review of Systems - Review of Systems Notes: Constitutional: Positive for fever. HENT: Negative for sore throat. Eyes: Negative for visual changes. Cardiovascular: Negative for chest pain. Respiratory: Negative for shortness of breath. Gastrointestinal: Negative for abdominal pain, vomiting or diarrhea. Genitourinary: Negative for dysuria. Musculoskeletal: Positive for right knee pain Skin: Positive for right knee cellulitis Neurological: Negative for headaches, weakness or numbness. 10 point ROS negative except as marked above and in HPI. Physical Exam - Vital signs Vitals: Temp Pulse Resp BP Pulse Ox 100.4 F 103 H 20 139/84 H 97 09/02/17 12:59 09/02/17 12:59 09/02/17 12:59 09/02/17 12:59 09/02/17 12:59 Interpretation: Tachycardic, Febrile Notes: PHYSICAL EXAMINATION: GENERAL: Highly anxious, appears to be uncomfortable but in no overt distress HEAD: Atraumatic, normocephalic. EYES: Pupils equal round and reactive to light, extraocular movements intact, sclera anicteric, conjunctiva are normal. ENT: nares patent, oropharynx clear without exudates. Moist mucous membranes. NECK: Normal range of motion, supple without lymphadenopathy LUNGS: Breath sounds clear to auscultation bilaterally and equal. No wheezes rales or rhonchi. HEART: Regular tachycardia without murmurs ABDOMEN: Soft, morbidly obese abdomen nontender, normoactive bowel sounds. No guarding, no rebound. No masses appreciated. EXTREMITIES: Patient is able to flex the right knee to 45 but not further either actively or passively. There is an apparent joint effusion to the right knee and erythema overlying the prepatellar region and appears to be emanating from the incisional line. NEUROLOGICAL: No focal neurological deficits. Moves all extremities spontaneously and on command. PSYCH: Highly anxious SKIN: Warm, Dry, normal turgor, no rashes or lesions noted. Course - Re-evaluation Re-evalutation: 09/02/17 18:59 Patient presents with sepsis with fever, leukocytosis and tachycardia at time of presentation with a an apparent right knee cellulitis with an associated knee effusion on x-ray. Concern for possible septic joint as patient was only able to bend 45 with passive range of motion. Using ultrasound guidance I did perform a knee arthrocentesis in the anterior lateral position which was successful on the second attempt. The drainage was mostly bloody although there was some synovial fluid in the drainage. This has been sent for Gram stain and culture. Blood cultures have been obtained. The patient has been started on IV fluids, fentanyl for pain control, vancomycin and ceftriaxone for staph and strep coverage. I discussed with the orthopedic surgeon on-call Dr. Saleem fernandes and he has accepted the patient for admission. - Vital Signs Vital signs: Temp Pulse Resp BP Pulse Ox 98.5 F 103 H 22 H 154/94 H 97 09/03/17 02:34 09/02/17 12:59 09/03/17 02:01 09/03/17 02:01 09/03/17 02:01 - Laboratory Result Diagrams: 09/02/17 14:15 09/02/17 14:15 Laboratory results interpreted by me: 09/02/17 09/02/17 09/02/17 14:15 14:15 14:15 WBC 19.5 H Plt Count 463 H Absolute Neutrophils 13.1 H Absolute Monocytes 1.9 H Sodium 134.3 L Potassium 3.0 L* Chloride 89 L Lactic Acid Calcium 10.3 H C-Reactive Protein 15.8 H 09/02/17 17:14 WBC Plt Count Absolute Neutrophils Absolute Monocytes Sodium Potassium Chloride Lactic Acid 2.6 H Calcium C-Reactive Protein - Diagnostic Test Radiology reviewed: Image reviewed, Reports reviewed Radiology results interpreted by me: 09/02/17 19:00 Right knee x-ray: Joint effusion with associated soft tissue swelling Procedures - Joint Aspiration Right Knee Consent obtained: Yes - Verbal consent Joint aspiration pre-procedure: Sterile PPE donned, Chloraprep applied, Sterile drapes applied Anesthetic type: 1% Lidocaine mL's of anesthetic: 3 Needle size: 22 Amount/type of drainage: 5 cc of bloody, viscous Number of attempts: 2 Complications: No Discharge - Discharge Clinical Impression: Cellulitis of right knee, Hypokalemia Sepsis Qualifiers: Sepsis type: sepsis due to unspecified organism Qualified Code(s): A41.9 - Sepsis, unspecified organism Condition: Fair Disposition: ADMITTED INPATIENT Admitting Provider: Nathalia Unit Admitted: Surgical Floor
[2017-09-02] MEDS: MORPHINE SULFATE 10 MG/ML INJ IV PRN (20:25)
[2017-09-02] MEDS: OXYCODONE-ACETAMINOPHEN 5-325 MG TABLET PO PRN (22:10)
[2017-09-02] MEDS ORDERED: PROMETHAZINE HCL 25 MG TABLET PO PRN (23:07)
[2017-09-02] MEDS ORDERED: NON-FORMULARY UNIT-DOSE MEDICATION PO PRN ×2 (23:11→23:13)
[2017-09-02 23:15] LABS: FLUID TYPE SYNOVIAL
[2017-09-02 23:16] LABS: FLUID APPEARANCE CLOUDY; FLUID COLOR RED; FLUID SOURCE KNEE; FLUID VISCOSITY SLIGHTLY VISCOUS
[2017-09-03] MEDS ORDERED: RINGERS SOLUTION,LACTATED 1,000 ML IV ONE (01:00)
[2017-09-03] MEDS: MORPHINE SULFATE 10 MG/ML INJ IV PRN ×5 (01:11→22:08)
[2017-09-03] MEDS: OXYCODONE-ACETAMINOPHEN 5-325 MG TABLET PO PRN ×3 (04:07→17:22)
[2017-09-03] MEDS: LEVOTHYROXINE SODIUM 0.1 MG TABLET PO SCH (05:24)
[2017-09-03] MEDS ORDERED: HYDROCHLOROTHIAZIDE 12.5 MG CAPSULE PO SCH (06:00)
--- NOTE | 2017-09-03 07:08 | PDOC H&P ---
History of Present Illness Admission Date/PCP: 09/02/17 20:28 History of Present Illness: KARLIE SERRANO is a 61 year old female The patient is a 61-year-old white female status post right knee arthroplasty who presents the emergency room with pain swelling and decreased function. Evaluated in emergency room included the fact that the patient was afebrile, had a leukocytosis of 19,000, a CRP was 15, and aspirated knee synovial fluid had a 7000 white count. The patient was started on IV antibiotics admitted to the orthopedic service for presumed underlying septic arthrosis Past Medical History Cardiac Medical History: Reports: Hyperlipidema, Hypertension Pulmonary Medical History: Reports: Asthma Neurological Medical History: Reports: Migraine Endocrine Medical History: Reports: Diabetes Mellitus Type 2 - borderline diet controlled, Hypothyroidism - Thyroid removed Denies: Hyperthyroidism Renal/ Medical History: Denies: End Stage Renal Disease Malignancy Medical History: Denies: Breast Cancer, Cervical Cancer, Ovarian Cancer GI Medical History: Reports: Gastroesophageal Reflux Disease Musculoskeltal Medical History: Reports: Arthritis Psychiatric Medical History: Reports: Bipolar Disorder, Depression Denies: Post Traumatic Stress Disorder Past Surgical History Past Surgical History: Reports: Appendectomy - Ex Lap, Section, Hysterectomy, Orthopedic Surgery - Right knee arthroplasty 07/29/17, Tonsillectomy Social History Information Source: Patient, [facility] Office, [facility] Records Lives with: Family Smoking Status: Never Smoker Frequency of Alcohol Use: None Hx Recreational Drug Use: No Hx Prescription Drug Abuse: No - Advance Directive Resuscitation Status: Full Code Family History Family History: Arthritis, CVA, Hyperlipidemia, Hypertension, Malignancy, Thyroid Disfunction Parental Family History Reviewed: No Children Family History Reviewed: No Sibling(s) Family History Reviewed.: No Medication/Allergy Home Medications: Alprazolam [Xanax] 2 mg PO Q8 08/03/17 Amlodipine Besylate [Norvasc 2.5 mg Tablet] 2.5 mg PO DAILY 08/03/17 Clonidine HCl [Catapres 0.1 mg Tablet] 0.1 mg PO Q12 08/03/17 Ezetimibe [Zetia 10 mg Tablet] 10 mg PO DAILY 08/03/17 Furosemide [Lasix 20 mg Tablet] 20 mg PO DAILY PRN 08/03/17 Hydrochlorothiazide [Hydrodiuril 12.5 mg Capsule] 12.5 mg PO BID@0600,1600 08/03 Ibuprofen [Motrin 800 mg Tablet] 800 mg PO Q12 08/03/17 Levothyroxine Sodium [Synthroid 0.1 mg Tablet] 0.2 mg PO Q6AM 08/03/17 Losartan Potassium [Cozaar 25 mg Tablet] 25 mg PO Q12 08/03/17 Metoprolol Tartrate [Lopressor 50 mg Tablet] 50 mg PO Q12 08/03/17 Promethazine HCl [Phenergan 25 mg Tablet] 25 mg PO Q8HP PRN 08/03/17 Suvorexant [Belsomra] 15 mg PO HSP PRN 08/03/17 Allergies/Adverse Reactions: hydrocodone [Hydrocodone] Allergy (Severe, Verified 09/02/17 13:19) sertraline HCl [From Zoloft] Allergy (Severe, Verified 09/02/17 13:19) hives, resp arrest propranolol HCl [From Inderal] Allergy (Intermediate, Verified 09/02/17 13:19) Hives ondansetron Allergy (Unknown, Verified 09/02/17 13:19) lamotrigine [From Lamictal] Allergy (Verified 09/02/17 13:19) propranolol Allergy (Verified 09/02/17 13:19) Review of Systems All systems: as per PMH Physical Exam Vital Signs: Temp Pulse Resp BP Pulse Ox 36.7 C 90 20 163/97 H 98 09/03/17 03:49 09/03/17 03:49 09/03/17 03:49 09/03/17 03:49 09/03/17 03:49 Intake & Output 09/02/17 09/03/17 09/04/17 06:59 06:59 06:59 Intake Total 548 Balance 548 Weight 103.2 kg General appearance: PRESENT: mild distress, obese Head exam: PRESENT: normocephalic Respiratory exam: PRESENT: unlabored Cardiovascular exam: PRESENT: RRR Pulses: PRESENT: +1 pedal pulses bilateral Vascular exam: PRESENT: normal capillary refill GI/Abdominal exam: PRESENT: soft Rectal exam: PRESENT: deferred Extremities exam: PRESENT: other - Right knee with a well-healed surgical incision. Patient is a tender calf. Increased soft tissue tension in the calf but not concerning for an underlying DVT. Globalized tenderness and pain associate with passive range of motion. Band-Aid over the proximal lateral aspect of the patella from the aspiration. Neurological exam: PRESENT: alert, awake, oriented to person, oriented to place , oriented to time, oriented to situation. ABSENT: motor sensory deficit Psychiatric exam: PRESENT: agitated, anxious Skin exam: PRESENT: dry, intact, warm. ABSENT: cyanosis, rash Results Laboratory Results: 09/02/17 23:21 Lactic Acid 3.3 H Impressions: Knee X-Ray 09/02/17 13:23 IMPRESSION: Knee joint effusion with prepatellar soft tissue swelling. Findings could be posttraumatic. Infectious or inflammatory change is also possible. No soft tissue gas. Venous Doppler Study 09/02/17 13:23 IMPRESSION: NO EVIDENCE DVT OR SVT IN THE RIGHT LEG. Status: Imported from PACS Assessment & Plan - Diagnosis (1) Narcotic dependence Is this a current diagnosis for this admission?: Yes Plan: Patient has a long-standing history of narcotic dependence. During the week her works in [place] and comes home on weekends. There is clearly a psychosocial aspect to the current admission. Pain management consult has been requested (2) History of knee replacement Qualifiers: Laterality: right Is this a current diagnosis for this admission?: Yes Plan: The patient has never had a documented right postoperative knee infection. At this point her incision is well-healed. There is no drainage. There is normal postoperative induration. She does have a leukocytosis of 19,000 but as far as I can tell she has not had a documented febrile episode. Aspiration from the knee is notable for white count is 7000, a C-reactive protein of 15 on both of which are not consistent with a postoperative septic arthritis. At this point have stopped the antibiotics. We will look for another source of potential infection including her urine. Will await the results of the Gram stain and aspiration from the knee. - Time Time Spent: 50 to 70 Minutes Anticipated discharge: Home with Homehealth Within: within 24 hours
[2017-09-03] MEDS ORDERED: VANCOMYCIN HCL 1,000 MG in DEXTROSE 5%-WATER 250 ML IV ONE (07:24)
[2017-09-03 08:47] LABS: APPEARANCE,URINE CLEAR; BILIRUBIN,URINE NEGATIVE (NEGATIVE); COLOR,URINE YELLOW; GLUCOSE, URINE NEGATIVE (NEGATIVE); KETONES,URINE NEGATIVE (NEGATIVE); LEUKOCYTE ESTERASE,URINE NEGATIVE (NEGATIVE); NITRITE,URINE NEGATIVE (NEGATIVE); PROTEIN,URINE NEGATIVE (NEGATIVE); URINE SPECIFIC GRAVITY 1.009; UROBILINOGEN,URINE NEGATIVE mg/dL (<2.0)
[2017-09-03] MEDS: IBUPROFEN 800 MG TABLET PO SCH ×2 (09:05→22:08)
[2017-09-03] MEDS: METOPROLOL TARTRATE 50 MG TABLET PO SCH ×2 (09:06→22:08)
[2017-09-03 09:35] LABS: ABSOLUTE EOSINOPHILS # (AUTO) 0.2 10^3/uL (0.0-0.6); ABSOLUTE LYMPHOCYTES (AUTO) 3.7 10^3/uL (0.5-4.7); ABSOLUTE MONOCYTES (AUTO) 0.8 10^3/uL (0.1-1.4); BASOPHILS % (AUTO) 0.2 % (0-2); EOSINOPHILS % (AUTO) 1.5 % (0-6); HEMATOCRIT 37.2 % (36.0-47.0); HEMOGLOBIN 12.6 g/dL (12.0-15.5); LYMPHOCYTES % (AUTO) 31.4 % (13-45); MEAN CORPUSCULAR HEMOGLOBIN 30.8 pg (27.0-33.4); MEAN CORPUSCULAR HGB CONC 33.9 g/dL (32.0-36.0); MEAN CORPUSCULAR VOLUME 91 fl (80-97); PLATELET COUNT 472 10^3/uL (150-450); RED BLOOD COUNT 4.09 10^6/uL (3.72-5.28); RED CELL DISTRIBUTION WIDTH 14.1 % (11.5-14.0); SEGMENTED NEUTROPHILS % (AUTO) 59.9 % (42-78); TOTAL CELLS COUNTED % (AUTO) 100 %; WHITE BLOOD COUNT 11.7 10^3/uL (4.0-10.5)
[2017-09-03] MEDS ORDERED: LOSARTAN POTASSIUM 25 MG TABLET PO SCH (10:00)
[2017-09-03] MEDS ORDERED: AMLODIPINE BESYLATE 2.5 MG TABLET PO SCH ×2 (10:00→12:30)
[2017-09-03] MEDS ORDERED: CLONIDINE HCL 0.1 MG TABLET PO SCH ×2 (10:00→14:00)
[2017-09-03 10:11] LABS: ERYTHROCYTE SEDIMENTATION RATE 32 mm/hr (0-30)
[2017-09-03] MEDS: EZETIMIBE 10 MG TABLET PO SCH (10:35)
[2017-09-03] MEDS ORDERED: AMLODIPINE BESYLATE 10 MG TABLET PO ONE (12:29)
[2017-09-03] MEDS ORDERED: HYDRALAZINE HCL INJ/PF 20 MG/1 ML SDV IV PRN (12:31)
[2017-09-03] MEDS ORDERED: AMLODIPINE BESYLATE 2.5 MG TABLET PO ONE (13:30)
[2017-09-03] MEDS ORDERED: LOSARTAN POTASSIUM 50 MG TABLET PO ONE (13:30)
--- NOTE | 2017-09-03 13:56 | PDOC CONSULTATION ---
Consultation Consult Date: 09/03/17 Attending physician:: Dr. Pinedo Consult reason:: Uncontrolled Hypertension History of Present Illness Admission Date/PCP: 09/02/17 20:28 No PCP Patient complains of: Hypertension History of Present Illness: KARLIE SERRANO is a 61 year old female with past medical history of Hypertension Hyperlipidemia Migraine Asthma Hypothyroidism post thyroidectomy GERD R knee arthroplasty 07/29/17- presented on 09/02/17 with pain swelling and decrease function in the R knee. She was noted to have a WBC count of 19,000, CRP 15. Knee was aspiarted- WBC count 7000, cultures pending. Was initially started on antibiotics, which are now on hold awaiting culture results. UA is clear. The medicine service was consulted for uncontrolled hypertension. She denies cough/dysuria/diarrhea or rash Past Medical History Cardiac Medical History: Reports: Hyperlipidema, Hypertension Pulmonary Medical History: Reports: Asthma Neurological Medical History: Reports: Migraine Endocrine Medical History: Reports: Diabetes Mellitus Type 2 - borderline diet controlled, Hypothyroidism - Thyroid removed Denies: Hyperthyroidism Renal/ Medical History: Denies: End Stage Renal Disease Malignancy Medical History: Denies: Breast Cancer, Cervical Cancer, Ovarian Cancer GI Medical History: Reports: Gastroesophageal Reflux Disease Musculoskeltal Medical History: Reports: Arthritis Psychiatric Medical History: Reports: Bipolar Disorder, Depression Denies: Post Traumatic Stress Disorder Past Surgical History Past Surgical History: Reports: Appendectomy - Ex Lap, Section, Hysterectomy, Orthopedic Surgery - Right knee arthroplasty 07/29/17, Tonsillectomy Social History Information Source: Patient Lives with: Family Smoking Status: Never Smoker Frequency of Alcohol Use: Occasional Hx Recreational Drug Use: No Hx Prescription Drug Abuse: No - Advance Directive Resuscitation Status: Full Code Family History Family History: Arthritis, CVA, Hyperlipidemia, Hypertension, Malignancy, Other - Thyroid cancer Parental Family History Reviewed: Yes Children Family History Reviewed: Yes Sibling(s) Family History Reviewed.: Yes Medication/Allergy Home Medications: Alprazolam [Xanax] 2 mg PO Q8 08/03/17 Amlodipine Besylate [Norvasc 2.5 mg Tablet] 2.5 mg PO DAILY 08/03/17 Clonidine HCl [Catapres 0.1 mg Tablet] 0.1 mg PO Q12 08/03/17 Ezetimibe [Zetia 10 mg Tablet] 10 mg PO DAILY 08/03/17 Furosemide [Lasix 20 mg Tablet] 20 mg PO DAILY PRN 08/03/17 Hydrochlorothiazide [Hydrodiuril 12.5 mg Capsule] 12.5 mg PO BID@0600,1600 08/03 Ibuprofen [Motrin 800 mg Tablet] 800 mg PO Q12 08/03/17 Levothyroxine Sodium [Synthroid 0.1 mg Tablet] 0.2 mg PO Q6AM 08/03/17 Losartan Potassium [Cozaar 25 mg Tablet] 25 mg PO Q12 08/03/17 Metoprolol Tartrate [Lopressor 50 mg Tablet] 50 mg PO Q12 08/03/17 Promethazine HCl [Phenergan 25 mg Tablet] 25 mg PO Q8HP PRN 08/03/17 Suvorexant [Belsomra] 15 mg PO HSP PRN 08/03/17 Allergies/Adverse Reactions: hydrocodone [Hydrocodone] Allergy (Severe, Verified 09/02/17 13:19) sertraline HCl [From Zoloft] Allergy (Severe, Verified 09/02/17 13:19) hives, resp arrest propranolol HCl [From Inderal] Allergy (Intermediate, Verified 09/02/17 13:19) Hives ondansetron Allergy (Unknown, Verified 09/02/17 13:19) lamotrigine [From Lamictal] Allergy (Verified 09/02/17 13:19) propranolol Allergy (Verified 09/02/17 13:19) Review of Systems Constitutional: PRESENT: fever(s) Eyes: ABSENT: visual disturbances Ears: ABSENT: hearing changes Nose, Mouth, and Throat: ABSENT: sore throat Cardiovascular: ABSENT: chest pain Respiratory: ABSENT: dyspnea Gastrointestinal: ABSENT: diarrhea Genitourinary: ABSENT: dysuria Musculoskeletal: PRESENT: joint swelling Integumentary: ABSENT: rash Neurological: ABSENT: focal weakness Psychiatric: ABSENT: hallucinations Endocrine: ABSENT: heat intolerance Hematologic/Lymphatic: ABSENT: easy bleeding Allergic/Immunologic: ABSENT: seasonal rhinorrhea Physical Exam Vital Signs: Temp Pulse Resp BP Pulse Ox 99.5 F 106 H 20 168/106 H 96 09/03/17 11:31 09/03/17 11:31 09/03/17 11:31 09/03/17 11:31 09/03/17 11:31 Intake & Output 09/02/17 09/03/17 09/04/17 06:59 06:59 06:59 Intake Total 548 Balance 548 Weight 103.2 kg General appearance: PRESENT: no acute distress, well-developed, well-nourished Head exam: PRESENT: normocephalic Ear exam: PRESENT: normal external ear exam Mouth exam: PRESENT: moist Throat exam: ABSENT: tonsillar exudate Neck exam: ABSENT: tracheal deviation Respiratory exam: PRESENT: clear to auscultation abdirahman, symmetrical, unlabored Cardiovascular exam: PRESENT: RRR GI/Abdominal exam: PRESENT: normal bowel sounds, soft. ABSENT: tenderness Rectal exam: PRESENT: deferred Extremities exam: PRESENT: joint swelling - R knee Neurological exam: PRESENT: alert, awake, oriented to person, oriented to place , oriented to time, oriented to situation Psychiatric exam: PRESENT: appropriate affect Skin exam: ABSENT: petechiae Results Laboratory Results: 09/03/17 09:17 09/02/17 09/03/17 09/03/17 23:21 08:00 09:17 WBC 11.7 H RBC 4.09 Hgb 12.6 Hct 37.2 MCV 91 MCH 30.8 MCHC 33.9 RDW 14.1 H Plt Count 472 H Seg Neutrophils % 59.9 Lymphocytes % 31.4 Monocytes % 7.0 Eosinophils % 1.5 Basophils % 0.2 Absolute Neutrophils 7.0 Absolute Lymphocytes 3.7 Absolute Monocytes 0.8 Absolute Eosinophils 0.2 Absolute Basophils 0.0 Lactic Acid 3.3 H C-Reactive Protein Urine Color YELLOW Urine Appearance CLEAR Urine pH 6.0 Ur Specific [place] 1.009 Urine Protein NEGATIVE Urine Glucose (UA) NEGATIVE Urine Ketones NEGATIVE Urine Blood NEGATIVE Urine Nitrite NEGATIVE Ur Leukocyte Esterase NEGATIVE Urine WBC (Auto) 2 Urine RBC (Auto) 0 09/03/17 09:17 WBC RBC Hgb Hct MCV MCH MCHC RDW Plt Count Seg Neutrophils % Lymphocytes % Monocytes % Eosinophils % Basophils % Absolute Neutrophils Absolute Lymphocytes Absolute Monocytes Absolute Eosinophils Absolute Basophils Lactic Acid C-Reactive Protein 43.9 H Urine Color Urine Appearance Urine pH Ur Specific [place] Urine Protein Urine Glucose (UA) Urine Ketones Urine Blood Urine Nitrite Ur Leukocyte Esterase Urine WBC (Auto) Urine RBC (Auto) Impressions: Knee X-Ray 09/02/17 13:23 IMPRESSION: Knee joint effusion with prepatellar soft tissue swelling. Findings could be posttraumatic. Infectious or inflammatory change is also possible. No soft tissue gas. Venous Doppler Study 09/02/17 13:23 IMPRESSION: NO EVIDENCE DVT OR SVT IN THE RIGHT LEG. Assessment & Plan - Diagnosis (1) Hypertension Qualifiers: Hypertension type: essential hypertension Qualified Code(s): I10 - Essential (primary) hypertension Is this a current diagnosis for this admission?: Yes Plan: Meds adjusted for better BP control. PRN IV Hydralazine ordered. Continue to monitor (2) History of knee replacement Qualifiers: Laterality: right Is this a current diagnosis for this admission?: Yes Plan: Management per Orthopedic surgery (3) Hypothyroidism Is this a current diagnosis for this admission?: Yes Plan: On Synthroid - Time Time Spent: 50 to 70 Minutes
[2017-09-03] MEDS: CLONIDINE HCL 0.1 MG TABLET PO SCH ×2 (15:07→22:08)
[2017-09-03] MEDS: LACTOBACILLUS ACIDOPHILUS 250 MG TAB PO SCH (17:22)
[2017-09-03] MEDS: OXYCODONE HCL SR 10 MG TABLET PO SCH (22:08)
[2017-09-04] MEDS: OXYCODONE-ACETAMINOPHEN 5-325 MG TABLET PO PRN (00:45)
[2017-09-04] MEDS: MORPHINE SULFATE 10 MG/ML INJ IV PRN ×2 (02:28→06:27)
[2017-09-04] MEDS: LEVOTHYROXINE SODIUM 0.1 MG TABLET PO SCH (06:26)
[2017-09-04] MEDS: CLONIDINE HCL 0.1 MG TABLET PO SCH (06:27)
--- NOTE | 2017-09-04 07:12 | PDOC DISCHARGE SUMMARY ---
General - Admit/Disc Date/PCP Admission Date/Primary Care Provider: 09/02/17 20:28 Discharge Date: 09/04/17 - Discharge Diagnosis (1) Narcotic dependence Is this a current diagnosis for this admission?: Yes (2) History of knee replacement Is this a current diagnosis for this admission?: Yes - Additional Information Resuscitation Status: Full Code Discharge Diet: As Tolerated, Regular Discharge Activity: Balance Activity w/Rest, No Driving, No tub bath Home Medications: Alprazolam [Xanax] 2 mg PO Q8 08/03/17 Amlodipine Besylate [Norvasc 2.5 mg Tablet] 2.5 mg PO DAILY 08/03/17 Clonidine HCl [Catapres 0.1 mg Tablet] 0.1 mg PO Q12 08/03/17 Ezetimibe [Zetia 10 mg Tablet] 10 mg PO DAILY 08/03/17 Furosemide [Lasix 20 mg Tablet] 20 mg PO DAILY PRN 08/03/17 Hydrochlorothiazide [Hydrodiuril 12.5 mg Capsule] 12.5 mg PO BID@0600,1600 08/03 Ibuprofen [Motrin 800 mg Tablet] 800 mg PO Q12 08/03/17 Levothyroxine Sodium [Synthroid 0.1 mg Tablet] 0.2 mg PO Q6AM 08/03/17 Losartan Potassium [Cozaar 25 mg Tablet] 25 mg PO Q12 08/03/17 Metoprolol Tartrate [Lopressor 50 mg Tablet] 50 mg PO Q12 08/03/17 Promethazine HCl [Phenergan 25 mg Tablet] 25 mg PO Q8HP PRN 08/03/17 Suvorexant [Belsomra] 15 mg PO HSP PRN 08/03/17 History of Present Illness History of Present Illness: Patient is a 61-year-old female status post right knee arthroplasty approximately 6 weeks ago. Patient telephoned the office on Saturday and left a message saying she had run out of pain medicine. Patient subsequently presented to the emergency room and underwent a a workup for potential periprosthetic infection. Patient is admitted for IV antibiotics. Hospital Course Hospital Course: Workup in the emergency room included blood studies demonstrating a sedimentation rate of 32 and an aspirate of the knee with less than 7000 white cells. The patient had previously described febrile episodes treated with Tylenol. In the hospital she has had a single T-max temperature of 38.0 and is otherwise been afebrile. All cultures have remained negative. The patient had a pain management consult. OxyContin was started. Patient is now more comfortable and cooperating with physical therapy. Physical Exam Vital Signs: Temp Pulse Resp BP Pulse Ox 36.8 C 84 20 126/89 H 97 09/03/17 23:15 09/03/17 23:15 09/03/17 23:15 09/03/17 23:15 09/03/17 23:15 Intake & Output 09/03/17 09/04/17 09/05/17 06:59 06:59 06:59 Intake Total 548 1372 Output Total 2750 Balance 548 -1378 Weight 103.2 kg 107.5 kg General appearance: PRESENT: no acute distress Head exam: PRESENT: normocephalic Respiratory exam: PRESENT: unlabored Cardiovascular exam: PRESENT: RRR Pulses: PRESENT: +1 pedal pulses bilateral Vascular exam: PRESENT: normal capillary refill GI/Abdominal exam: PRESENT: soft Rectal exam: PRESENT: deferred Extremities exam: PRESENT: other - Knee incision is well-healed. There is no erythema. There is no drainage. There is some surrounding induration. There is mild pedal edema. Distal neurovascular examination is intact. Neurological exam: PRESENT: alert, awake, oriented to person, oriented to place , oriented to time, oriented to situation. ABSENT: motor sensory deficit Skin exam: PRESENT: dry, intact, warm. ABSENT: cyanosis, rash Results Laboratory Results: 09/03/17 09/03/17 09/03/17 08:00 09:17 09:17 WBC 11.7 H RBC 4.09 Hgb 12.6 Hct 37.2 MCV 91 MCH 30.8 MCHC 33.9 RDW 14.1 H Plt Count 472 H Seg Neutrophils % 59.9 Lymphocytes % 31.4 Monocytes % 7.0 Eosinophils % 1.5 Basophils % 0.2 Absolute Neutrophils 7.0 Absolute Lymphocytes 3.7 Absolute Monocytes 0.8 Absolute Eosinophils 0.2 Absolute Basophils 0.0 C-Reactive Protein 43.9 H Urine Color YELLOW Urine Appearance CLEAR Urine pH 6.0 Ur Specific [place] 1.009 Urine Protein NEGATIVE Urine Glucose (UA) NEGATIVE Urine Ketones NEGATIVE Urine Blood NEGATIVE Urine Nitrite NEGATIVE Ur Leukocyte Esterase NEGATIVE Urine WBC (Auto) 2 Urine RBC (Auto) 0 Impressions: Knee X-Ray 09/02/17 13:23 IMPRESSION: Knee joint effusion with prepatellar soft tissue swelling. Findings could be posttraumatic. Infectious or inflammatory change is also possible. No soft tissue gas. Venous Doppler Study 09/02/17 13:23 IMPRESSION: NO EVIDENCE DVT OR SVT IN THE RIGHT LEG. Status: Imported from PACS Qualifiers - * PATIENT BEING DISCHARGED WITH ANY OF THE FOLLOWING DIAGNOSIS: No VTE patient discharged on overlapping Therapy?: No Reason(s) for not prescribing Overlap Therapy:: Not indicated Plan Discharge Plan: 61-year-old white female status post right knee arthroplasty with a postoperative course which is been notable for multiple emergency room visits which have focused on potential surgical site infection and ongoing need for pain medication. Surgical site infection blood parameters and direct Paps of the knee have all been negative. Medication is recent will be addressed by pain management consult. The patient may now discharged home with home health services. Follow-up with pain management as well as with orthopedics.
[2017-09-04 07:23] LABS: ALANINE AMINOTRANSFERASE 26 U/L (9-52); ALBUMIN 3.7 g/dL (3.5-5.0); ALKALINE PHOSPHATASE 65 U/L (38-126); ANION GAP 11 (5-19); ASPARTATE AMINO TRANSFERASE 12 U/L (14-36); BILIRUBIN,DIRECT 0.3 mg/dL (0.0-0.4); BILIRUBIN,TOTAL 0.4 mg/dL (0.2-1.3); BLOOD UREA NITROGEN 12 mg/dL (7-20); CARBON DIOXIDE 29 mmol/L (22-30); CHLORIDE 99 mmol/L (98-107); GLUCOSE 104 mg/dL (75-110); PHOSPHORUS 4.4 mg/dL (2.5-4.5); POTASSIUM 3.5 mmol/L (3.6-5.0); SODIUM 138.8 mmol/L (137-145); TOTAL PROTEIN 6.3 g/dL (6.3-8.2)
[2017-09-04 07:35] LABS: ABSOLUTE BASOPHILS # (AUTO) 0.1 10^3/uL (0.0-0.2); ABSOLUTE EOSINOPHILS # (AUTO) 0.4 10^3/uL (0.0-0.6); ABSOLUTE LYMPHOCYTES (AUTO) 3.4 10^3/uL (0.5-4.7); ABSOLUTE MONOCYTES (AUTO) 0.9 10^3/uL (0.1-1.4); ABSOLUTE NEUT (AUTO) 5.6 10^3/uL (1.7-8.2); BASOPHILS % (AUTO) 0.9 % (0-2); LYMPHOCYTES % (AUTO) 32.7 % (13-45); MEAN CORPUSCULAR HEMOGLOBIN 31.1 pg (27.0-33.4); MEAN CORPUSCULAR HGB CONC 34.3 g/dL (32.0-36.0); MEAN CORPUSCULAR VOLUME 91 fl (80-97); MONOCYTES % (AUTO) 8.5 % (3-13); PLATELET COUNT 432 10^3/uL (150-450); RED BLOOD COUNT 3.86 10^6/uL (3.72-5.28); RED CELL DISTRIBUTION WIDTH 13.8 % (11.5-14.0); SEGMENTED NEUTROPHILS % (AUTO) 53.9 % (42-78); TOTAL CELLS COUNTED % (AUTO) 100 %; WHITE BLOOD COUNT 10.4 10^3/uL (4.0-10.5)
[2017-09-04 08:33] VITALS: BP 132/91
[2017-09-04] MEDS: EZETIMIBE 10 MG TABLET PO SCH (09:58)
[2017-09-04] MEDS: OXYCODONE HCL SR 10 MG TABLET PO SCH (09:59)
[2017-09-04] MEDS ORDERED: AMLODIPINE BESYLATE 10 MG TABLET PO SCH (10:00)
[2017-09-04] MEDS ORDERED: LOSARTAN POTASSIUM 50 MG TABLET PO SCH (10:00)
[2017-09-04] MEDS: LACTOBACILLUS ACIDOPHILUS 250 MG TAB PO SCH (10:00)
[2017-09-04] MEDS: IBUPROFEN 800 MG TABLET PO SCH (10:00)
[2017-09-04] MEDS ORDERED: HYDROCHLOROTHIAZIDE 25 MG TABLET PO SCH (10:00)
[2017-09-04] MEDS: METOPROLOL TARTRATE 50 MG TABLET PO SCH (10:00)
[2017-09-04] MEDS ORDERED: LOSARTAN POTASSIUM 25 MG TABLET PO SCH (10:00)
--- NOTE | 2017-09-04 12:30 | CONSULTATION REPORT E ---
Consultation Report NAME: KARLIE SERRANO : 1955 AGE: 61Y DATE: 09/03/2017 ROOM: 435 A TO: AUGUSTINE SMITH PA-C FROM: OBED SCHUMACHER D.O. Requesting Physician PAIN MANAGEMENT CONSULTATION CHIEF COMPLAINT: Right knee pain. HISTORY OF PRESENT ILLNESS: The patient underwent a right total knee replacement on 07/29, had a normal postop course, completed physical therapy, and was doing well but was admitted 2 days ago due to a right painful and swollen knee. She states her knee started swelling this past weekend after she walked around [facility]. She woke up the next morning with significant swelling in her right knee and increased pain and stiffness, difficulty flexing her knee. She went to the ER. She states she also noticed subjective fevers and chills. She was admitted as they were worried about a possible septic joint. She has cultures pending. She has a constant aching pain in the right knee, worse with flexion/extension or weightbearing. She also has a 10 year history of low back pain and has been treated in pain management for this. She states she has been on opioids for the past 15 years for her lower back pain. She was recently let go from her pain management clinic due obtaining scripts from the ER on occassion, which she did not realize she was not supposed to do. She states she typically takes [id number] mg three times a day for her chronic back pain. She has tried fentanyl patches in the past which were helpful, Nucynta ER which was not helpful, and Embeda which was not helpful and gave her insomnia. She has not tried long-acting oxycodone or OxyContin. She is currently receiving morphine IV every 4 hours which is helpful without s/e but it does not last very long, and she is also getting Percocet 10/325 mg every 6 hours which is helpful, but also does not last very long. Her pain spikes between doses of each of these pain medications. She has tried Neurontin in the past and says this gave her a rash and itchiness and she has also tried Lyrica in the past which made her dizzy. PAST MEDICAL HISTORY: Positive for hypertension, hyperlipidemia, migraine, asthma, hypothyroidism, GERD, bipolar, depression, and CVA. ALLERGIES: She is allergic to HYDROCODONE, which makes her itchy; ZOLOFT, PROPRANOLOL, ZOFRAN, LAMICTAL. PAST SURGICAL HISTORY: Thyroidectomy, hysterectomy, breast augmentation, and recent right total knee replacement. MEDICATIONS: As per chart. SOCIAL HISTORY: She is and lives alone. She has 3 children who live elsewhere, but she is on good terms with her ex- who visits her and helps her around her house. She denies alcohol use or illicit drug use. REVIEW OF SYSTEMS: CONSTITUTIONAL: The patient denies fevers, but does note chills. She denies dizziness, weakness, loss of appetite. SKIN: Denies itching. Denies diaphoresis. HEENT: Denies visual changes or difficulty hearing. CARDIOVASCULAR: She denies chest pain, heart palpitations. RESPIRATORY: She denies cough, sputum production. GASTROINTESTINAL: She denies nausea, abdominal pain, or constipation. GENITOURINARY: Denies dysuria or hematuria. MUSCULOSKELETAL: Positive for lower back pain, right knee pain and swelling. NEUROLOGIC: Denies any focal weakness, bowel or bladder incontinence, problems with anesthesia, seizures or tremors. ENDOCRINE: Denies recent weight changes. Review of systems is otherwise negative. PHYSICAL EXAMINATION: GENERAL: On examination the patient is an -[place] female who appears stated age. She is alert and oriented to person, place, and time. When I arrived she was laying comfortably in bed and watching TV. VITAL SIGNS: Her vitals are stable. SKIN: Warm and dry. HEENT: Normocephalic, atraumatic. Extraocular muscles are intact. Pupils equal and reactive to light. NECK: Supple and nontender. CARDIOVASCULAR: Radial pulses are 2+ bilaterally. LUNGS: Respirations are nonlabored. EXTREMITIES: Warm, she is able to pump her feet without issues. The right knee is swollen. The incision is well-healed. There is no drainage. It is diffusely tender to palpation. NEUROLOGIC: Cranial nerves II-XII are grossly intact. Upper and lower extremities strength and sensation is preserved. PSYCHIATRIC: The patient is alert and oriented to person, place, and time. IMPRESSION AND PLAN: The patient has right knee pain s/p TKR with possible septic joint, pending cultures. I do recommend the addition of a long-acting pain medication, so we will add in OxyContin 10 mg q.12 hours scheduled. She can continue Percocet 10/325 mg every 6 hours as needed for breakthrough pain. We will continue IV morphine as needed but discussed with the patient she should use it as sparingly as possible, hopefully just before or after she has PT, but hopefully with the addition of the long-acting medication she will not need any IV medications throughout the night. Unfortunately she has failed neuropathics, since she had side effects with Neurontin and Lyrica, so we cannot add those in. She is already on an nonsteroidal anti-inflammatory. We may consider the addition of clonidine in the future as a neuropathic component to pain. We will continue to follow this patient with you. Thank you for the consult. The patient was discussed with Dr. Ruslan Turner. DICTATING PHYSICIAN: AUGUSTINE SMITH PA-C [id number] Y#: [id number] ID: [id number] JOB#: [id number] ACCT: [id number] cc:AUGUSTINE SMITH PA-C > MTDD
== END 2017-09-04 10:50 | disposition home health service (06) | DRG 897 ==
LOC: ER 12:49 → EH 20:28 → 4S 09-03 03:13
PROVIDERS: ADMIT Orthopaedic Surgery; ATTEND Orthopaedic Surgery
PROC: 0S9C3ZX Drainage of Right Knee Joint, Percutaneous Approach, Diagnostic (ICD-10-PCS; principal; 2017-09-03)
DX: F11.20 Opioid dependence, uncomplicated (principal); M25.561 Pain in right knee; E87.6 Hypokalemia; E11.9 Type 2 diabetes mellitus without complications; E78.00 Pure hypercholesterolemia, unspecified; I10 Essential (primary) hypertension; M54.5 Low back pain; E89.0 Postprocedural hypothyroidism; K21.9 Gastro-esophageal reflux disease without esophagitis; K58.9 Irritable bowel syndrome, unspecified; E66.01 Morbid (severe) obesity due to excess calories; F20.9 Schizophrenia, unspecified; F32.9 Major depressive disorder, single episode, unspecified; Z96.651 Presence of right artificial knee joint; Z60.2 Problems related to living alone; Z86.73 Personal history of transient ischemic attack (TIA), and cerebral infarction without residual deficits
CPT/HCPCS: 36415; 80048; 80053; 81001; 83605; 83735; 84100; 85025; 85652; 86140; 87040; 87070; 87075; 87205; 89050; 93971; 94799; 96365; 96375; 99285; G8978-GP; G8979-GP; J0696; J2270; J3010; J3370; J3490; J7030; J7060; J7120

== ENCOUNTER 2017-09-16 04:35 | Emergency (ER) | payer MEDICARE, MEDICAID, OTHER ==
[2017-09-16] MEDS ORDERED: OXYCODONE HCL IR 5 MG TABLET PO ONE (05:45)
--- NOTE | 2017-09-16 05:46 | ER Document Report ---
ED Medical Screen (RME) - General Chief Complaint: Knee Pain Stated Complaint: RIGHT LEG PAIN Time Seen by Provider: 09/16/17 05:37 TRAVEL OUTSIDE OF THE [place] IN LAST 30 DAYS: No - HPI Notes: 09/16/17 05:42 Patient is a 61-year-old female with a history of TKA on the right side several months ago presents to the ED complaining of continued right knee pain and swelling status post discharge from the hospital about a week and a half ago. Patient states that she has been doing physical therapy, but has had continued pain. She has not noticed any purulent discharge or abscess formation. She is still able to eat and drink, but does have a decreased p.o. intake. She is urinating normally and having normal bowel movements. Denies any headache, fever, neck pain, URI, sore throat, chest pain, palpitations, syncope, cough, shortness of breath, wheeze, dyspnea, abdominal pain, nausea/vomiting/diarrhea, urinary retention, dysuria, hematuria, loss of control of bowel or bladder, numbness/tingling, saddle anesthesia, muscle paralysis/weakness, or rash. I have treated and performed a rapid initial assessment of this patient. A comprehensive ED assessment and evaluation of the patient, analysis of test results and completion of medical decision making process will be conducted by additional ED providers. PHYSICAL EXAMINATION: GENERAL: Well-appearing, well-nourished and in no acute distress. A&Ox4. Answers questions appropriately. LUNGS: Breath sounds clear to auscultation bilaterally and equal. No wheezes rales or rhonchi. HEART: Regular rate and rhythm without murmurs, rubs, gallops. MS: Rt knee: LROM to flexion. + warmth noted. No obvious effusion. + mild swelling noted. N/v intact distal. Extremities: No cyanosis, clubbing, or edema b/l. NEUROLOGICAL: Normal speech, normal gait. PSYCH: Normal mood, normal affect. - Related Data Allergies/Adverse Reactions: hydrocodone [Hydrocodone] Allergy (Severe, Verified 09/02/17 13:19) sertraline HCl [From Zoloft] Allergy (Severe, Verified 09/02/17 13:19) hives, resp arrest propranolol HCl [From Inderal] Allergy (Intermediate, Verified 09/02/17 13:19) Hives ondansetron Allergy (Unknown, Verified 09/02/17 13:19) lamotrigine [From Lamictal] Allergy (Verified 09/02/17 13:19) propranolol Allergy (Verified 09/02/17 13:19) Past Medical History - Social History Family history: Reviewed & Not Pertinent - Past Medical History Cardiac Medical History: Reports: Hx Hypercholesterolemia, Hx Hypertension Pulmonary Medical History: Reports: Hx Asthma Neurological Medical History: Reports: Hx Cerebrovascular Accident, Hx Migraine Endocrine Medical History: Reports: Hx Diabetes Mellitus Type 2 - borderline diet controlled, Hx Hypothyroidism - Thyroid removed. Denies: Hx Graves' Disease, Hx Hyperthyroidism Renal/ Medical History: Reports: Hx Kidney Stones, Hx Ovarian Cysts. Denies: Hx End Stage Renal Disease, Hx Peritoneal Dialysis, Hx Pelvic Inflammatory Disease Malignancy Medical History: Denies: Hx Breast Cancer, Hx Cervical Cancer, Hx Ovarian Cancer GI Medical History: Reports: Hx Gastroesophageal Reflux Disease, Hx Irritable Bowel Musculoskeltal Medical History: Reports Hx Arthritis, Reports Hx Musculoskeletal Deformity, Reports Hx Musculoskeletal Trauma Psychiatric Medical History: Reports: Hx Bipolar Disorder, Hx Depression, Hx Schizophrenia Denies: Hx Post Traumatic Stress Disorder Traumatic Medical History: Past Surgical History: Reports: Hx Abdominal Surgery - Ex Lap, Hx Appendectomy - Ex Lap, Hx Section, Hx Gynecologic Surgery - hyst, Hx Hysterectomy, Hx Orthopedic Surgery - Right knee arthroplasty 07/29/17, Hx Thyroid Surgery, Hx Tonsillectomy - Immunizations Immunizations up to date: Yes Hx Diphtheria, Pertussis, Tetanus Vaccination: Yes History of Influenza Vaccine for 01/2017 - 06/2017 Season: Yes Influenza Administration Date for 01/2017 - 06/2017 Season: 01/13/17 Physical Exam - Vital signs Vitals: Temp Pulse Resp BP Pulse Ox 97.6 F 107 H 20 157/112 H 98 09/16/17 04:41 09/16/17 04:41 09/16/17 04:41 09/16/17 04:41 09/16/17 04:41 Course - Vital Signs Vital signs: Temp Pulse Resp BP Pulse Ox 97.6 F 107 H 20 157/112 H 98 09/16/17 04:41 09/16/17 04:41 09/16/17 04:41 09/16/17 04:41 09/16/17 04:41 Doctor's Discharge - Discharge Referrals: BORIS WISE MD [Primary Care Provider] - Follow up as needed
[2017-09-16 06:26] LABS: ABSOLUTE BASOPHILS # (AUTO) 0.1 10^3/uL (0.0-0.2); ABSOLUTE EOSINOPHILS # (AUTO) 0.1 10^3/uL (0.0-0.6); ABSOLUTE LYMPHOCYTES (AUTO) 2.4 10^3/uL (0.5-4.7); ABSOLUTE MONOCYTES (AUTO) 1.4 10^3/uL (0.1-1.4); ABSOLUTE NEUT (AUTO) 14.8 10^3/uL (1.7-8.2); BASOPHILS % (AUTO) 0.4 % (0-2); EOSINOPHILS % (AUTO) 0.3 % (0-6); HEMATOCRIT 37.2 % (36.0-47.0); HEMOGLOBIN 13.1 g/dL (12.0-15.5); LYMPHOCYTES % (AUTO) 12.7 % (13-45); MEAN CORPUSCULAR HEMOGLOBIN 30.7 pg (27.0-33.4); MEAN CORPUSCULAR HGB CONC 35.2 g/dL (32.0-36.0); MONOCYTES % (AUTO) 7.6 % (3-13); PLATELET COUNT 443 10^3/uL (150-450); RED BLOOD COUNT 4.27 10^6/uL (3.72-5.28); TOTAL CELLS COUNTED % (AUTO) 100 %; WHITE BLOOD COUNT 18.8 10^3/uL (4.0-10.5)
[2017-09-16 06:27] LABS: MEAN CORPUSCULAR VOLUME 88 fl (80-97)
[2017-09-16 06:39] LABS: ALANINE AMINOTRANSFERASE 22 U/L (9-52); ALBUMIN 4.2 g/dL (3.5-5.0); ALKALINE PHOSPHATASE 84 U/L (38-126); ANION GAP 17 (5-19); ASPARTATE AMINO TRANSFERASE 17 U/L (14-36); BILIRUBIN,DIRECT 0.3 mg/dL (0.0-0.4); BLOOD UREA NITROGEN 6 mg/dL (7-20); CALCIUM 9.9 mg/dL (8.4-10.2); CARBON DIOXIDE 21 mmol/L (22-30); CHLORIDE 86 mmol/L (98-107); GLUCOSE 115 mg/dL (75-110); POTASSIUM 3.1 mmol/L (3.6-5.0); SODIUM 123.7 mmol/L (137-145); TOTAL PROTEIN 7.2 g/dL (6.3-8.2)
--- NOTE | 2017-09-16 06:54 | RADIOLOGY REPORT (SQ) ---
EXAM DESCRIPTION: XR KNEE 4 OR MORE VIEWS COMPLETED DATE/TME: 09/16/2017 05:42 CLINICAL HISTORY: 61 years, Female, Rt knee pain COMPARISON: 09/03/2027 FINDINGS: 4 views of the right knee. Right total knee arthroplasty. No acute fracture. Osteopenia. No definite hardware abnormalities. Mild joint effusion. IMPRESSION: 1. No acute fracture. Right total knee arthroplasty 2. Small joint effusion. 2010 [employer]- All Rights Reserved
[2017-09-16] MEDS ORDERED: KETOROLAC TROMETHAMINE 60 MG/2 ML SDV IM ONE (07:20)
[2017-09-16] MEDS ORDERED: LIDOCAINE 5% (700 MG) TRANSDERMAL ADH..PATCH TP ONE (07:20)
[2017-09-16] MEDS ORDERED: POTASSIUM CHLORIDE 10 MEQ TABLET.SA PO ONE (07:22)
--- NOTE | 2017-09-16 07:32 | ER Document Report ---
ED General - General Chief Complaint: Knee Pain Stated Complaint: RIGHT LEG PAIN Time Seen by Provider: 09/16/17 05:37 TRAVEL OUTSIDE OF THE [place] IN LAST 30 DAYS: No - HPI Patient complains to provider of: Right knee pain Notes: Patient coming in for evaluation of right knee pain patient has recent history having a right knee replacement and recent admission for concern for possible infected hardware. Patient had a effusion drained with the fluid sent for culture showing no microorganisms. Patient denies any fever and otherwise is resting comfortably upon my evaluation. Patient states she is supposed to see pain management in the next 24 hours. - Related Data Allergies/Adverse Reactions: hydrocodone [Hydrocodone] Allergy (Severe, Verified 09/02/17 13:19) sertraline HCl [From Zoloft] Allergy (Severe, Verified 09/02/17 13:19) hives, resp arrest propranolol HCl [From Inderal] Allergy (Intermediate, Verified 09/02/17 13:19) Hives ondansetron Allergy (Unknown, Verified 09/02/17 13:19) lamotrigine [From Lamictal] Allergy (Verified 09/02/17 13:19) propranolol Allergy (Verified 09/02/17 13:19) Past Medical History - Social History Smoking Status: Unknown if Ever Smoked Chew tobacco use (# tins/day): No Frequency of alcohol use: None Drug Abuse: None Family History: Arthritis, CVA, Hyperlipidemia, Hypertension, Malignancy, Other - Thyroid cancer Patient has suicidal ideation: No Patient has homicidal ideation: No - Past Medical History Cardiac Medical History: Reports: Hx Hypercholesterolemia, Hx Hypertension Pulmonary Medical History: Reports: Hx Asthma Neurological Medical History: Reports: Hx Cerebrovascular Accident, Hx Migraine Endocrine Medical History: Reports: Hx Diabetes Mellitus Type 2 - borderline diet controlled, Hx Hypothyroidism - Thyroid removed. Denies: Hx Graves' Disease, Hx Hyperthyroidism Renal/ Medical History: Reports: Hx Kidney Stones, Hx Ovarian Cysts. Denies: Hx End Stage Renal Disease, Hx Peritoneal Dialysis, Hx Pelvic Inflammatory Disease Malignancy Medical History: Denies: Hx Breast Cancer, Hx Cervical Cancer, Hx Ovarian Cancer GI Medical History: Reports: Hx Gastroesophageal Reflux Disease, Hx Irritable Bowel Musculoskeltal Medical History: Reports Hx Arthritis, Reports Hx Musculoskeletal Deformity, Reports Hx Musculoskeletal Trauma Psychiatric Medical History: Reports: Hx Bipolar Disorder, Hx Depression, Hx Schizophrenia Denies: Hx Post Traumatic Stress Disorder Traumatic Medical History: Past Surgical History: Reports: Hx Abdominal Surgery - Ex Lap, Hx Appendectomy - Ex Lap, Hx Section, Hx Gynecologic Surgery - hyst, Hx Hysterectomy, Hx Orthopedic Surgery - Right knee arthroplasty 07/29/17, Hx Thyroid Surgery, Hx Tonsillectomy - Immunizations Immunizations up to date: Yes Hx Diphtheria, Pertussis, Tetanus Vaccination: Yes Hx Pneumococcal Vaccination: 12/15/15 Review of Systems - Review of Systems Constitutional: No symptoms reported EENT: No symptoms reported Cardiovascular: No symptoms reported Respiratory: No symptoms reported Gastrointestinal: No symptoms reported Genitourinary: No symptoms reported Female Genitourinary: No symptoms reported Musculoskeletal: Other - Knee pain Skin: No symptoms reported Hematologic/Lymphatic: No symptoms reported Neurological/Psychological: No symptoms reported -: Yes All other systems reviewed and negative Physical Exam - Vital signs Vitals: Temp Pulse Resp BP Pulse Ox 97.6 F 107 H 20 157/112 H 98 09/16/17 04:41 09/16/17 04:41 09/16/17 04:41 09/16/17 04:41 09/16/17 04:41 Interpretation: Normal - General General appearance: Appears well, Alert - HEENT Head: Normocephalic, Atraumatic Eyes: Normal Pupils: PERRL - Respiratory Respiratory status: No respiratory distress Chest status: Nontender Breath sounds: Normal Chest palpation: Normal - Cardiovascular Rhythm: Regular Heart sounds: Normal auscultation Murmur: No - Abdominal Inspection: Normal Distension: No distension Bowel sounds: Normal Tenderness: Nontender Organomegaly: No organomegaly - Back Back: Normal, Nontender - Extremities General upper extremity: Normal inspection, Nontender, Normal color, Normal ROM , Normal temperature General lower extremity: Nontender, Normal color, Normal ROM, Normal temperature , Normal weight bearing. No: Normal inspection - Right knee has postsurgical signs with minimal swelling compared to the left there is no tenderness to palpation of the calf no erythema no redness no signs of infection, Juliana's sign - Neurological Neuro grossly intact: Yes Cognition: Normal Orientation: AAOx4 [place] Coma Scale Eye Opening: Spontaneous Vicky Coma Scale Verbal: Oriented [place] Coma Scale Motor: Obeys Commands [place] Coma Scale Total: 15 Speech: Normal Motor strength normal: LUE, RUE, LLE, RLE Sensory: Normal - Psychological Associated symptoms: Normal affect, Normal mood - Skin Skin Temperature: Warm Skin Moisture: Dry Skin Color: Normal Course - Re-evaluation Re-evalutation: 09/16/17 15:09 Patient has leukocytosis consistent with her last few visits no fever no signs of infection examination otherwise normal patient able ambulate on her knee. Patient was encouraged follow-up with her primary care physician and orthopedic doctor continue with her appointment tomorrow to see heel painter. - Vital Signs Vital signs: Temp Pulse Resp BP Pulse Ox 98.4 F 96 17 155/90 H 100 09/16/17 08:33 09/16/17 08:33 09/16/17 08:33 09/16/17 08:33 09/16/17 08:33 - Laboratory Result Diagrams: 09/16/17 06:10 09/16/17 06:10 Laboratory results interpreted by me: 09/16/17 09/16/17 06:10 06:10 WBC 18.8 H Seg Neutrophils % 79.0 H Lymphocytes % 12.7 L Absolute Neutrophils 14.8 H Sodium 123.7 L Potassium 3.1 L Chloride 86 L Carbon Dioxide 21 L BUN 6 L Glucose 115 H Discharge - Discharge Clinical Impression: Hypokalemia Knee pain Qualifiers: Chronicity: chronic Laterality: right Qualified Code(s): M25.561 - Pain in right knee Condition: Good Disposition: HOME, SELF-CARE Instructions: Knee Exercise Program ([facility]) Additional Instructions: Your x-ray today physical examination laboratory studies not reveal any significant pathology except for low potassium. We gave you potassium here. Please follow-up with your pain management as scheduled. Please continue the pain medications prescribed by orthopedic physician. Return to ER for any other concerns. Referrals: BORIS WISE MD [Primary Care Provider] - Follow up in 3-5 days
[2017-09-16 08:35] VITALS: BP 155/90
== END 2017-09-16 08:34 | disposition home or self-care (01) ==
LOC: ER 04:35
DX: M25.561 Pain in right knee (principal); E87.6 Hypokalemia; D72.829 Elevated white blood cell count, unspecified; Z96.651 Presence of right artificial knee joint; I10 Essential (primary) hypertension; J45.909 Unspecified asthma, uncomplicated; E11.9 Type 2 diabetes mellitus without complications
CPT/HCPCS: 99284; 96372; 36415; 85025; 80053; 73564; J1885; A9270 ×2

== ENCOUNTER 2017-09-27 10:19 | Emergency (ER) | payer MEDICARE, MEDICAID, OTHER ==
[2017-09-27] MEDS ORDERED: DEXAMETHASONE SOD PHOS INJ 10 MG/1 ML VIAL IM ONE (10:36)
[2017-09-27] MEDS ORDERED: KETOROLAC TROMETHAMINE 60 MG/2 ML SDV IM ONE (10:36)
[2017-09-27] MEDS ORDERED: KETOROLAC TROMETHAMINE INJ/PF 30 MG/1 ML SDV IM ONE (10:40)
[2017-09-27] MEDS ORDERED: LIDOCAINE 5% (700 MG) TRANSDERMAL ADH..PATCH TP ONE (10:40)
--- NOTE | 2017-09-27 10:41 | ER Document Report ---
ED Neck/Back Problem - General Chief Complaint: Back Pain Stated Complaint: BACK PAIN Time Seen by Provider: 09/27/17 10:27 Mode of Arrival: Ambulatory Information source: Patient Notes: 11-year-old female presents to ED for complaint of low back pain on the right SI joint radiating down the right leg. She states this is the same pain she always has no new pain no new injuries it is just gotten worse today. She is alert and oriented pupils equal and react to light, patient speaking in full sentences, respirations regular and unlabored, patient is able to walk with a even steady gait. TRAVEL OUTSIDE OF THE [place] IN LAST 30 DAYS: No - HPI Patient complains to provider of: Pain, Lower back Onset: Other - Chronic Onset: Chronic Timing: Still present Quality of pain: Burning, Sharp Severity: Severe Pain Level: 5 Context: Lifting, Turning Recent injury: No Associated symptoms: Like prior neck/back pain, Radiation to leg, Lower back pain. denies: Fever, Incontinence, Motor loss, Numbness/tingling, Radiation to arm, Radiation to chest, Sensory loss, Sweaty, Unable to urinate, Upper back pain Relieved by: Nothing Similar symptoms previously: Yes Recently seen / treated by doctor: Yes - Related Data Allergies/Adverse Reactions: hydrocodone [Hydrocodone] Allergy (Severe, Verified 09/27/17 10:19) sertraline HCl [From Zoloft] Allergy (Severe, Verified 09/27/17 10:19) hives, resp arrest propranolol HCl [From Inderal] Allergy (Intermediate, Verified 09/27/17 10:19) Hives ondansetron Allergy (Unknown, Verified 09/27/17 10:19) lamotrigine [From Lamictal] Allergy (Verified 09/27/17 10:19) propranolol Allergy (Verified 09/27/17 10:19) Past Medical History - General Information source: Patient - Social History Smoking Status: Never Smoker Cigarette use (# per day): No Chew tobacco use (# tins/day): No Smoking Education Provided: No Frequency of alcohol use: None Drug Abuse: None Family History: Arthritis, CVA, Hyperlipidemia, Hypertension, Malignancy, Other - Thyroid cancer - Past Medical History Cardiac Medical History: Reports: Hx Hypercholesterolemia, Hx Hypertension Pulmonary Medical History: Reports: Hx Asthma EENT Medical History: Reports: None Neurological Medical History: Reports: Hx Cerebrovascular Accident, Hx Migraine Endocrine Medical History: Reports: Hx Diabetes Mellitus Type 2 - borderline diet controlled, Hx Hypothyroidism - Thyroid removed Renal/ Medical History: Reports: Hx Kidney Stones, Hx Ovarian Cysts Malignancy Medical History: Reports: None GI Medical History: Reports: Hx Gastroesophageal Reflux Disease, Hx Irritable Bowel Musculoskeltal Medical History: Reports Hx Arthritis, Reports Hx Musculoskeletal Deformity, Reports Hx Musculoskeletal Trauma Skin Medical History: Reports None Psychiatric Medical History: Reports: Hx Bipolar Disorder, Hx Depression, Hx Schizophrenia Traumatic Medical History: Reports: None Infectious Medical History: Reports: None Past Surgical History: Reports: Hx Abdominal Surgery - Ex Lap, Hx Appendectomy - Ex Lap, Hx Section, Hx Hysterectomy, Hx Orthopedic Surgery - Right knee arthroplasty 07/29/17, Hx Thyroid Surgery, Hx Tonsillectomy - Immunizations Immunizations up to date: Yes Hx Diphtheria, Pertussis, Tetanus Vaccination: Yes Hx Pneumococcal Vaccination: 12/15/15 Review of Systems - Review of Systems Constitutional: No symptoms reported EENT: No symptoms reported Cardiovascular: No symptoms reported Respiratory: No symptoms reported Gastrointestinal: No symptoms reported Genitourinary: No symptoms reported Female Genitourinary: No symptoms reported Musculoskeletal: Back pain - right si joint down right leg Skin: No symptoms reported Hematologic/Lymphatic: No symptoms reported Neurological/Psychological: No symptoms reported -: Yes All other systems reviewed and negative Physical Exam - Vital signs Vitals: Temp Pulse Resp BP Pulse Ox 98.8 F 103 H 18 175/94 H 99 09/27/17 10:24 09/27/17 10:24 09/27/17 10:24 09/27/17 10:24 09/27/17 10:24 Interpretation: Normal - General General appearance: Appears well, Alert - HEENT Head: Normocephalic, Atraumatic Eyes: Normal Pupils: PERRL - Respiratory Respiratory status: No respiratory distress Chest status: Nontender Breath sounds: Normal Chest palpation: Normal - Cardiovascular Rhythm: Regular Heart sounds: Normal auscultation Murmur: No - Abdominal Inspection: Normal Distension: No distension Bowel sounds: Normal Tenderness: Nontender Organomegaly: No organomegaly - Back Back: Normal, Tender, Vertebra tenderness - Right SI joint down the right leg. No: Deformity/step-off, CVA tenderness, Scars, Scoliosis, Wounds - Extremities General upper extremity: Normal inspection, Nontender, Normal color, Normal ROM , Normal temperature General lower extremity: Normal inspection, Nontender, Normal color, Normal ROM , Normal temperature, Normal weight bearing. No: Juliana's sign - Neurological Neuro grossly intact: Yes Cognition: Normal Orientation: AAOx4 Vicky Coma Scale Eye Opening: Spontaneous Vicky Coma Scale Verbal: Oriented [place] Coma Scale Motor: Obeys Commands Vicky Coma Scale Total: 15 Speech: Normal Motor strength normal: LUE, RUE, LLE, RLE Sensory: Normal - Psychological Associated symptoms: Normal affect, Normal mood - Skin Skin Temperature: Warm Skin Moisture: Dry Skin Color: Normal Course - Re-evaluation Re-evalutation: 09/27/17 10:40 This patient has chronic low back pain. There is no vertebral tenderness. Patient is requesting received a Toradol and Decadron injection after we rechecked her blood pressure was 158/82. Patient knows that she needs to be careful taking NSAIDs with her elevated blood pressure. After performing a Medical Screening Examination, I estimate there is LOW risk for EXPANDING OR RUPTURED ABDOMINAL AORTIC ANEURYSM, CAUDA EQUINA SYNDROME, EPIDURAL MASS LESION , or HERNIATED DISK CAUSING SEVERE SPINAL STENOSIS, thus I consider the discharge disposition reasonable. I have reevaluated this patient multiple times and no significant life threatening changes are noted. The patient and I have discussed the diagnosis and risks, and we agree with discharging home and close follow-up. We also discussed returning to the Emergency Department immediately if new or worsening symptoms occur with the understanding that symptoms and presentations can change. We have discussed the symptoms which are most concerning (e.g., saddle anesthesia, urinary or bowel incontinence or retention, changing or worsening pain) that necessitate immediate return. - Vital Signs Vital signs: Temp Pulse Resp BP Pulse Ox 98.8 F 103 H 18 175/94 H 99 09/27/17 10:24 09/27/17 10:24 09/27/17 10:24 09/27/17 10:24 09/27/17 10:24 Discharge - Discharge Clinical Impression: Low back pain Qualifiers: Chronicity: chronic Back pain laterality: right Sciatica presence: with sciatica Sciatica laterality: sciatica of right side Qualified Code(s): M54.41 - Lumbago with sciatica, right side Condition: Stable Disposition: HOME, SELF-CARE Additional Instructions: Chronic Back Pain Chronic back pain (pain persisting longer than three months) is a common problem. A medical evaluation can look for herniated disc, arthritis, osteoporosis, tumors, and infections. But at least half the time, there's no obvious treatable cause. Anxiety and depression tend to worsen back pain. Ibuprofen or other anti-inflammatory medicine can help. A heating pad, used for 15-20 minutes at a time, can ease pain. For this type of back pain, narcotic medicines should be avoided. Muscle relaxers are rarely helpful unless you're having spasms. Activity is important. Find an aerobic exercise program that your back can tolerate. Too much rest makes back pain worse. Specific back exercises are usually prescribed to strengthen the back and abdominal muscles. Often, a physical therapist can help. Avoid heavy lifting, working while bent over, or standing with both knees straight. Most back pain patients do better with a firm mattress. If new symptoms of a "herniated disc" (radiation of pain, numbness, or tingling down the back of the leg or weakness in the leg) occur, you should be re-examined. Toradol Injection You have been given an injection of ketorolac tromethamine (Toradol). This is an excellent, safe drug for pain control. It also has potent antiinflammatory action. You should have significant pain relief within about one hour. Toradol is not addicting and is non-sedating. It does not interfere with driving or work. Call or return if you develop itching, hives, shortness of breath, or rash. STEROID MEDICATION: You have been given an injection of medicine of the cortisone/steroid class. This medication is used to control inflammation or allergy. It is often continued as a pill for a short period of time, until the acute process subsides. There are usually no side effects from short-term use of cortisone-like medications. Some persons feel an increased sense of well-being and are not sleepy at bedtime. Long-term use of cortisone medications is best avoided, unless required for a severe condition. If your condition does not remit, or relapses after the course of corticosteroid medication, you should consult your physician. Stretching Exercises for the Back The physician has recommended that you begin stretching exercises for your back. These are often used even while the back is painful. However, you should notify the physician if the activities seem to increase your pain. PELVIC TILT: Lie flat on your back with knees bent. Tighten your stomach and buttock muscles so it flattens your lower back against the floor. Hold 10 seconds. Repeat 10 times, twice daily. KNEE RAISE: Lying on the back with knees bent, raise one knee to your chest, then the other. Hold both knees against the chest 10 seconds, then lower one knee at a time. Repeat 10 times, twice daily. PARTIAL TRUNK RAISE: Lie face down, arms at your sides. Keeping your waist on the floor, use your arms raise your chest up. Support yourself on your elbows for 30 seconds. Repeat twice daily, increasing the time to two minutes as you recover. ICE PACKS: Apply ice packs frequently against the painful area. Many different schedules are recommended, such as "20 minutes on, 20 minutes off" or "one hour ice, two hours rest." If you need to work, you may need to go longer between ice treatments. You should plan to have the area ice packed AT LEAST one fourth of the time. The ice should be applied over the wrap, tape, or splint, or over a layer of cloth -- not directly against the skin. Some ice bags have a built-in cloth and can be put directly on the skin. WARM PACKS: After approximately two days, apply gentle heat (such as a heating pad or hot water bottle) for about 20 to 30 minutes about every two hours -- at least four times daily. Warmth and elevation will help you make a more rapid recovery , and will ease the pain considerably. Do not use HOT heat, and never apply heat for longer than 30 minutes. The continuous heat can invisibly damage skin and muscles -- even when no burn is seen on the surface. Damaged muscles can make you MORE sore. FOLLOW-UP CARE: If you have been referred to a physician for follow-up care, call the physician s office for an appointment as you were instructed or within the next two days. If you experience worsening or a significant change in your symptoms, notify the physician immediately or return to the Emergency Department at any time for re-evaluation. Forms: Elevated Blood Pressure Referrals: BORIS WISE MD [Primary Care Provider] - Follow up as needed
[2017-09-27 11:28] VITALS: BP 158/82
== END 2017-09-27 10:54 | disposition home or self-care (01) ==
LOC: ER 10:19
DX: M54.41 Lumbago with sciatica, right side (principal); M79.604 Pain in right leg; M54.9 Dorsalgia, unspecified; I10 Essential (primary) hypertension; J45.909 Unspecified asthma, uncomplicated; E11.9 Type 2 diabetes mellitus without complications
CPT/HCPCS: 99283; 96372; J1885; J1100

== ENCOUNTER 2017-09-28 09:10 | Emergency (ER) | payer MEDICARE, MEDICAID, OTHER ==
[2017-09-28] MEDS ORDERED: KETOROLAC TROMETHAMINE 60 MG/2 ML SDV IM ONE (10:52)
[2017-09-28] MEDS ORDERED: HYDROMORPHONE HCL INJ/PF 2 MG/ML AMPULE IM ONE (10:53)
[2017-09-28] MEDS ORDERED: PROMETHAZINE HCL 25 MG TABLET PO ONE (10:53)
--- NOTE | 2017-09-28 10:54 | ER Document Report ---
ED Headache - General Time Seen by Provider: 09/28/17 10:51 Notes: 61-year-old female to the emergency department chief complaint of migraine headache. Headache on the left side. Similarly multiple previous headaches. Patient was on pain management recently had a knee replacement on the right. Followed by Dr. Pinedo. Recently started on him for oil by her pain management doctor. Some photophobia. No blurred vision. No weakness of the upper lower extremities. No fever, chills, sweats. No neck stiffness. No other major symptoms. States that sometimes when the headache gets this bad chest come in and get a shot. TRAVEL OUTSIDE OF THE [place] IN LAST 30 DAYS: No - HPI Patient complains to provider of: Headache, "Migraine" Patient reports: Frequent migraines, Hx chronic headaches. No: Brain neoplasm, Prior neurologic eval, [employer] Shunt Onset: Yesterday Onset was: Gradual. denies: Thunderclap, While turning head Timing: Still present Quality of pain: Achy, Pressure Severity: Moderate Pain Level: 3 Associated symptoms: Photophobia. denies: Double/blurred vision, Fainting, Fever, Lightheaded, Memory loss, Neck pain, Speech problems, Stiff neck, Sweaty , Tingling/numb sensation, Trouble walking Exacerbated by: Light, Noise - Related Data Allergies/Adverse Reactions: hydrocodone [Hydrocodone] Allergy (Severe, Verified 09/27/17 10:19) sertraline HCl [From Zoloft] Allergy (Severe, Verified 09/27/17 10:19) hives, resp arrest propranolol HCl [From Inderal] Allergy (Intermediate, Verified 09/27/17 10:19) Hives ondansetron Allergy (Unknown, Verified 09/27/17 10:19) lamotrigine [From Lamictal] Allergy (Verified 09/27/17 10:19) propranolol Allergy (Verified 09/27/17 10:19) Past Medical History - General Information source: Patient - Social History Smoking Status: Smoker,Current Status Unk Frequency of alcohol use: None Drug Abuse: None Lives with: Spouse/Significant other Family History: Arthritis, CVA, Hyperlipidemia, Hypertension, Malignancy, Other - Thyroid cancer - Past Medical History Cardiac Medical History: Reports: Hx Hypercholesterolemia, Hx Hypertension Pulmonary Medical History: Reports: Hx Asthma Neurological Medical History: Reports: Hx Cerebrovascular Accident, Hx Migraine Endocrine Medical History: Reports: Hx Diabetes Mellitus Type 2 - borderline diet controlled, Hx Hypothyroidism - Thyroid removed. Denies: Hx Graves' Disease, Hx Hyperthyroidism Renal/ Medical History: Reports: Hx Kidney Stones, Hx Ovarian Cysts. Denies: Hx End Stage Renal Disease, Hx Peritoneal Dialysis, Hx Pelvic Inflammatory Disease Malignancy Medical History: Denies: Hx Breast Cancer, Hx Cervical Cancer, Hx Ovarian Cancer GI Medical History: Reports: Hx Gastroesophageal Reflux Disease, Hx Irritable Bowel Musculoskeltal Medical History: Reports Hx Arthritis, Reports Hx Musculoskeletal Deformity, Reports Hx Musculoskeletal Trauma Psychiatric Medical History: Reports: Hx Bipolar Disorder, Hx Depression, Hx Schizophrenia Denies: Hx Post Traumatic Stress Disorder Traumatic Medical History: Past Surgical History: Reports: Hx Abdominal Surgery - Ex Lap, Hx Appendectomy - Ex Lap, Hx Section, Hx Gynecologic Surgery - hyst, Hx Hysterectomy, Hx Orthopedic Surgery - Right knee arthroplasty 07/29/17, Hx Thyroid Surgery, Hx Tonsillectomy - Immunizations Immunizations up to date: Yes Hx Diphtheria, Pertussis, Tetanus Vaccination: Yes Hx Pneumococcal Vaccination: 12/15/15 Review of Systems - Review of Systems Constitutional: No symptoms reported EENT: No symptoms reported, Other - Photophobia Cardiovascular: No symptoms reported Respiratory: No symptoms reported Gastrointestinal: No symptoms reported Genitourinary: No symptoms reported Female Genitourinary: No symptoms reported Musculoskeletal: No symptoms reported Skin: No symptoms reported Hematologic/Lymphatic: No symptoms reported Neurological/Psychological: See HPI, Headaches. denies: Dementia, Depression, Anxiety, Sensory change, Gait changes, Seizure, Lost consciousness, Speech impairment, Numbness Physical Exam - Vital signs Interpretation: Normal - General General appearance: Appears well, Alert - HEENT Head: Normocephalic, Atraumatic Eyes: Normal Pupils: PERRL - Respiratory Respiratory status: No respiratory distress Chest status: Nontender Breath sounds: Normal Chest palpation: Normal - Cardiovascular Rhythm: Regular Heart sounds: Normal auscultation Murmur: No - Abdominal Inspection: Normal Distension: No distension Bowel sounds: Normal Tenderness: Nontender Organomegaly: No organomegaly - Back Back: Normal, Nontender - Extremities General upper extremity: Normal inspection, Nontender, Normal color, Normal ROM , Normal temperature General lower extremity: Normal inspection, Nontender, Normal color, Normal ROM , Normal temperature, Normal weight bearing. No: Juliana's sign - Neurological Neuro grossly intact: Yes Cognition: Normal Orientation: AAOx4 [place] Coma Scale Eye Opening: Spontaneous [place] Coma Scale Verbal: Oriented [place] Coma Scale Motor: Obeys Commands [place] Coma Scale Total: 15 Speech: Normal Motor strength normal: LUE, RUE, LLE, RLE Sensory: Normal - Psychological Associated symptoms: Normal affect, Normal mood - Skin Skin Temperature: Warm Skin Moisture: Dry Skin Color: Normal Course - Re-evaluation Re-evalutation: 09/28/17 11:01 Patient does not want an IV. Request shots. At this time we will give her some medication to see if this will help for her headache. Toradol, Dilaudid and Phenergan ordered. Discharge - Discharge Clinical Impression: Migraine headache Qualifiers: Migraine type: chronic without aura Status migrainosus presence: without status migrainosus Intractability: not intractable Qualified Code(s): G43.709 - Chronic migraine without aura, not intractable, without status migrainosus Condition: Good Disposition: HOME, SELF-CARE Instructions: Migraine Headache ([facility]) Additional Instructions: If your headache is getting worse, you develop weakness of the upper lower extremities or facial weakness,, fever, chills or other concerning symptoms please return immediately. Referrals: BORIS WISE MD [Primary Care Provider] - Follow up as needed
[2017-09-28 11:29] VITALS: BP 156/115
== END 2017-09-28 11:30 | disposition home or self-care (01) ==
LOC: ER 10:39
DX: G43.709 Chronic migraine without aura, not intractable, without status migrainosus (principal); Z96.651 Presence of right artificial knee joint; I10 Essential (primary) hypertension; J45.909 Unspecified asthma, uncomplicated; E11.9 Type 2 diabetes mellitus without complications; Z88.5 Allergy status to narcotic agent; Z88.8 Allergy status to other drugs, medicaments and biological substances
CPT/HCPCS: 99283; 96372; J1885; J1170; A9270

== ENCOUNTER 2017-10-03 06:43 | Emergency (ER) | payer MEDICARE, MEDICAID, OTHER ==
--- NOTE | 2017-10-03 07:46 | ER Document Report ---
ED Medical Screen (RME) - General Chief Complaint: Back Pain Stated Complaint: LEG PAIN Time Seen by Provider: 10/03/17 07:46 Notes: Patient reports the emergency department with complaints of sciatica pain. Patient reports a history of chronic back pain and recently knee surgery. Reports was evaluated by pain management on Saturday but was prescribed hemp oil and that takes 1 month to take effect. She was told to come to the emergency department for her pain. TRAVEL OUTSIDE OF THE [place] IN LAST 30 DAYS: No - Related Data Allergies/Adverse Reactions: hydrocodone [Hydrocodone] Allergy (Severe, Verified 10/03/17 07:42) sertraline HCl [From Zoloft] Allergy (Severe, Verified 10/03/17 07:42) hives, resp arrest propranolol HCl [From Inderal] Allergy (Intermediate, Verified 10/03/17 07:42) Hives ondansetron Allergy (Unknown, Verified 10/03/17 07:42) lamotrigine [From Lamictal] Allergy (Verified 10/03/17 07:42) propranolol Allergy (Verified 10/03/17 07:42) Past Medical History - Social History Frequency of alcohol use: None Drug Abuse: None Family history: Reviewed & Not Pertinent - Past Medical History Cardiac Medical History: Reports: Hx Hypercholesterolemia, Hx Hypertension Pulmonary Medical History: Reports: Hx Asthma Neurological Medical History: Reports: Hx Cerebrovascular Accident, Hx Migraine Endocrine Medical History: Reports: Hx Diabetes Mellitus Type 2 - borderline diet controlled, Hx Hypothyroidism - Thyroid removed. Denies: Hx Graves' Disease, Hx Hyperthyroidism Renal/ Medical History: Reports: Hx Kidney Stones, Hx Ovarian Cysts. Denies: Hx End Stage Renal Disease, Hx Peritoneal Dialysis, Hx Pelvic Inflammatory Disease Malignancy Medical History: Denies: Hx Breast Cancer, Hx Cervical Cancer, Hx Ovarian Cancer GI Medical History: Reports: Hx Gastroesophageal Reflux Disease, Hx Irritable Bowel Musculoskeltal Medical History: Reports Hx Arthritis, Reports Hx Musculoskeletal Deformity, Reports Hx Musculoskeletal Trauma Psychiatric Medical History: Reports: Hx Bipolar Disorder, Hx Depression, Hx Schizophrenia Denies: Hx Post Traumatic Stress Disorder Traumatic Medical History: Past Surgical History: Reports: Hx Abdominal Surgery - Ex Lap, Hx Appendectomy - Ex Lap, Hx Section, Hx Gynecologic Surgery - hyst, Hx Hysterectomy, Hx Orthopedic Surgery - Right knee arthroplasty 07/29/17, Hx Thyroid Surgery, Hx Tonsillectomy - Immunizations Immunizations up to date: Yes Hx Diphtheria, Pertussis, Tetanus Vaccination: Yes History of Influenza Vaccine for 01/2017 - 06/2017 Season: Yes Influenza Administration Date for 01/2017 - 06/2017 Season: 01/13/17 Physical Exam - Vital signs Vitals: Temp Pulse Resp BP Pulse Ox 98.2 F 73 18 120/85 95 10/03/17 06:55 10/03/17 06:55 10/03/17 06:55 10/03/17 06:55 10/03/17 06:55 Course - Vital Signs Vital signs: Temp Pulse Resp BP Pulse Ox 98.2 F 73 18 120/85 95 10/03/17 06:55 10/03/17 06:55 10/03/17 06:55 10/03/17 06:55 10/03/17 06:55
[2017-10-03] MEDS ORDERED: KETOROLAC TROMETHAMINE INJ/PF 30 MG/1 ML SDV IM ONE (09:18)
[2017-10-03] MEDS ORDERED: DEXAMETHASONE SOD PHOS INJ 10 MG/1 ML VIAL IM ONE (09:18)
--- NOTE | 2017-10-03 09:22 | ER Document Report ---
ED Neck/Back Problem - General Chief Complaint: Back Pain Stated Complaint: LEG PAIN Time Seen by Provider: 10/03/17 07:46 Mode of Arrival: Ambulatory Information source: Patient Notes: 61-year-old female presented ED for complaint of low back pain. She has chronic low back pain and sees a pain management as well as her primary care doctor. She is a frequent visitor to the emergency room also. Patient requested Toradol and Decadron injections until she can go follow-up with her primary doctor. TRAVEL OUTSIDE OF THE [place] IN LAST 30 DAYS: No - HPI Patient complains to provider of: Lower back Onset: Other - Chronic Onset: Chronic Timing: Waxing and waning Quality of pain: Sharp Severity: Severe Pain Level: 5 Context: Bending Recent injury: No Associated symptoms: Like prior neck/back pain, Radiation to leg, Lower back pain. denies: Incontinence, Motor loss, Numbness/tingling, Radiation to arm, Radiation to chest, Sensory loss, Sweaty, Unable to urinate, Upper back pain Exacerbated by: Movement of trunk Relieved by: Nothing Similar symptoms previously: Yes Recently seen / treated by doctor: Yes - Related Data Allergies/Adverse Reactions: hydrocodone [Hydrocodone] Allergy (Severe, Verified 10/03/17 07:42) sertraline HCl [From Zoloft] Allergy (Severe, Verified 10/03/17 07:42) hives, resp arrest propranolol HCl [From Inderal] Allergy (Intermediate, Verified 10/03/17 07:42) Hives ondansetron Allergy (Unknown, Verified 10/03/17 07:42) lamotrigine [From Lamictal] Allergy (Verified 10/03/17 07:42) propranolol Allergy (Verified 10/03/17 07:42) Past Medical History - General Information source: Patient - Social History Smoking Status: Never Smoker Cigarette use (# per day): No Chew tobacco use (# tins/day): No Smoking Education Provided: No Frequency of alcohol use: None Drug Abuse: None Family History: Arthritis, CVA, Hyperlipidemia, Hypertension, Malignancy, Other - Thyroid cancer Patient has suicidal ideation: No Patient has homicidal ideation: No - Past Medical History Cardiac Medical History: Reports: Hx Hypercholesterolemia, Hx Hypertension Pulmonary Medical History: Reports: Hx Asthma EENT Medical History: Reports: None Neurological Medical History: Reports: Hx Cerebrovascular Accident, Hx Migraine Endocrine Medical History: Reports: Hx Diabetes Mellitus Type 2 - borderline diet controlled, Hx Hypothyroidism - Thyroid removed Renal/ Medical History: Reports: Hx Kidney Stones, Hx Ovarian Cysts Malignancy Medical History: Reports: None GI Medical History: Reports: Hx Gastroesophageal Reflux Disease, Hx Irritable Bowel Musculoskeltal Medical History: Reports Hx Arthritis, Reports Hx Musculoskeletal Deformity, Reports Hx Musculoskeletal Trauma Skin Medical History: Reports None Psychiatric Medical History: Reports: Hx Bipolar Disorder, Hx Depression, Hx Schizophrenia Traumatic Medical History: Reports: None Infectious Medical History: Reports: None Past Surgical History: Reports: Hx Abdominal Surgery - Ex Lap, Hx Appendectomy - Ex Lap, Hx Section, Hx Gynecologic Surgery - hyst, Hx Hysterectomy, Hx Orthopedic Surgery - Right knee arthroplasty 07/29/17, Hx Thyroid Surgery, Hx Tonsillectomy - Immunizations Immunizations up to date: Yes Hx Diphtheria, Pertussis, Tetanus Vaccination: Yes Hx Pneumococcal Vaccination: 12/15/15 Review of Systems - Review of Systems Constitutional: No symptoms reported EENT: No symptoms reported Cardiovascular: No symptoms reported Respiratory: No symptoms reported Gastrointestinal: No symptoms reported Genitourinary: No symptoms reported Female Genitourinary: No symptoms reported Musculoskeletal: Back pain, Muscle pain, Muscle stiffness Skin: No symptoms reported Hematologic/Lymphatic: No symptoms reported Neurological/Psychological: No symptoms reported -: Yes All other systems reviewed and negative Physical Exam - Vital signs Vitals: Temp Pulse Resp BP Pulse Ox 98.2 F 73 18 120/85 95 10/03/17 06:55 10/03/17 06:55 10/03/17 06:55 10/03/17 06:55 10/03/17 06:55 Interpretation: Normal - General General appearance: Appears well, Alert - HEENT Head: Normocephalic, Atraumatic Eyes: Normal Pupils: PERRL - Respiratory Respiratory status: No respiratory distress Chest status: Nontender Breath sounds: Normal Chest palpation: Normal - Cardiovascular Rhythm: Regular Heart sounds: Normal auscultation Murmur: No - Abdominal Inspection: Normal Distension: No distension Bowel sounds: Normal Tenderness: Nontender Organomegaly: No organomegaly - Back Back: Normal, Tender. No: Deformity/step-off, CVA tenderness, Vertebra tenderness, Scars, Scoliosis, Wounds - Extremities General upper extremity: Normal inspection, Nontender, Normal color, Normal ROM , Normal temperature General lower extremity: Normal inspection, Nontender, Normal color, Normal ROM , Normal temperature, Normal weight bearing. No: Juliana's sign - Neurological Neuro grossly intact: Yes Cognition: Normal Orientation: AAOx4 [place] Coma Scale Eye Opening: Spontaneous [place] Coma Scale Verbal: Oriented [place] Coma Scale Motor: Obeys Commands [place] Coma Scale Total: 15 Speech: Normal Motor strength normal: LUE, RUE, LLE, RLE Sensory: Normal - Psychological Associated symptoms: Normal affect, Normal mood - Skin Skin Temperature: Warm Skin Moisture: Dry Skin Color: Normal Course - Re-evaluation Re-evalutation: 10/03/17 20:51 Patient has chronic low back pain. She is seen in the emergency room and at his primary care doctor frequently for this low back pain. She was treated with Toradol and Decadron. She does have a primary care doctor visit next week as well as pain management visit coming up soon. After performing a Medical Screening Examination, I estimate there is LOW risk for EXPANDING OR RUPTURED ABDOMINAL AORTIC ANEURYSM, CAUDA EQUINA SYNDROME, EPIDURAL MASS LESION, or HERNIATED DISK CAUSING SEVERE SPINAL STENOSIS, thus I consider the discharge disposition reasonable. I have reevaluated this patient multiple times and no significant life threatening changes are noted. The patient and I have discussed the diagnosis and risks, and we agree with discharging home and close follow-up. We also discussed returning to the Emergency Department immediately if new or worsening symptoms occur with the understanding that symptoms and presentations can change. We have discussed the symptoms which are most concerning (e.g., saddle anesthesia, urinary or bowel incontinence or retention , changing or worsening pain) that necessitate immediate return. - Vital Signs Vital signs: Temp Pulse Resp BP Pulse Ox 97.9 F 70 18 130/85 H 96 10/03/17 09:31 10/03/17 09:31 10/03/17 09:31 10/03/17 09:31 10/03/17 09:31 Discharge - Discharge Clinical Impression: Chronic back pain Qualifiers: Back pain location: low back pain Back pain laterality: bilateral Sciatica presence: with sciatica Sciatica laterality: bilateral sciatica Qualified Code(s ): M54.42 - Lumbago with sciatica, left side Condition: Stable Disposition: HOME, SELF-CARE Instructions: Family Physicians / Practices Additional Instructions: LOW BACK PAIN: Three out of every four people will have an episode of disabling back pain during their lifetime. Most commonly the pain is due to straining of the muscles and ligaments in the low back. Usual treatment includes: (1) Rest on a firm surface. Avoid lying on your stomach. (2) Ice pack the painful area. After a few days, gentle heat may be used intermittently to relax the area, or ice packs can be continued. (3) Medication may be needed -- muscle relaxers and antiinflammatory medicines are commonly used. (4) As the back improves, exercises are prescribed to strengthen the back and abdominal muscles. Your doctor will advise you on the proper care for your back at each stage in your recovery. You may be better in a few days -- or healing may take several weeks. If new symptoms of a "herniated disc" (radiation of pain, numbness, or tingling down the back of the leg or weakness in the leg) occur, you should be re-examined. Further testing may be necessary. STEROID MEDICATION: You have been given an injection of medicine of the cortisone/steroid class. This medication is used to control inflammation or allergy. It is often continued as a pill for a short period of time, until the acute process subsides. There are usually no side effects from short-term use of cortisone-like medications. Some persons feel an increased sense of well-being and are not sleepy at bedtime. Long-term use of cortisone medications is best avoided, unless required for a severe condition. If your condition does not remit, or relapses after the course of corticosteroid medication, you should consult your physician. Toradol Injection You have been given an injection of ketorolac tromethamine (Toradol). This is an excellent, safe drug for pain control. It also has potent antiinflammatory action. You should have significant pain relief within about one hour. Toradol is not addicting and is non-sedating. It does not interfere with driving or work. Call or return if you develop itching, hives, shortness of breath, or rash. Stretching Exercises for the Back The physician has recommended that you begin stretching exercises for your back. These are often used even while the back is painful. However, you should notify the physician if the activities seem to increase your pain. PELVIC TILT: Lie flat on your back with knees bent. Tighten your stomach and buttock muscles so it flattens your lower back against the floor. Hold 10 seconds. Repeat 10 times, twice daily. KNEE RAISE: Lying on the back with knees bent, raise one knee to your chest, then the other. Hold both knees against the chest 10 seconds, then lower one knee at a time. Repeat 10 times, twice daily. PARTIAL TRUNK RAISE: Lie face down, arms at your sides. Keeping your waist on the floor, use your arms raise your chest up. Support yourself on your elbows for 30 seconds. Repeat twice daily, increasing the time to two minutes as you recover. ICE PACKS: Apply ice packs frequently against the painful area. Many different schedules are recommended, such as "20 minutes on, 20 minutes off" or "one hour ice, two hours rest." If you need to work, you may need to go longer between ice treatments. You should plan to have the area ice packed AT LEAST one fourth of the time. The ice should be applied over the wrap, tape, or splint, or over a layer of cloth -- not directly against the skin. Some ice bags have a built-in cloth and can be put directly on the skin. WARM PACKS: After approximately two days, apply gentle heat (such as a heating pad or hot water bottle) for about 20 to 30 minutes about every two hours -- at least four times daily. Warmth and elevation will help you make a more rapid recovery , and will ease the pain considerably. Do not use HOT heat, and never apply heat for longer than 30 minutes. The continuous heat can invisibly damage skin and muscles -- even when no burn is seen on the surface. Damaged muscles can make you MORE sore. FOLLOW-UP CARE: If you have been referred to a physician for follow-up care, call the physician s office for an appointment as you were instructed or within the next two days. If you experience worsening or a significant change in your symptoms, notify the physician immediately or return to the Emergency Department at any time for re-evaluation.
[2017-10-03 09:39] VITALS: BP 130/85
== END 2017-10-03 09:39 | disposition home or self-care (01) ==
LOC: ER 06:43
DX: M54.42 Lumbago with sciatica, left side (principal); G89.29 Other chronic pain; I10 Essential (primary) hypertension; J45.909 Unspecified asthma, uncomplicated; E11.9 Type 2 diabetes mellitus without complications
CPT/HCPCS: 99283; 96372; J1885; J1100

== ENCOUNTER 2017-10-09 04:54 | Emergency (ER) | payer MEDICARE, MEDICAID, OTHER ==
--- NOTE | 2017-10-09 06:15 | ER Document Report ---
ED Neck/Back Problem - General Mode of Arrival: Ambulatory Information source: Patient TRAVEL OUTSIDE OF THE [place] IN LAST 30 DAYS: No - General Chief Complaint: Back Pain Stated Complaint: BACK PAIN Notes: Patient is a 61-year-old female who presents to the emergency department today with complaints of "normal sciatica pain". Patient states she recently started in pain management and has been prescribed "hemp oil" that she is drinking which has not seemed to relieve her pain. Patient states she just needs a little bit of pain control to help with sleep. Patient states she has also tried Motrin and ice at home with no relief. Patient states she has tried gabapentin and Robaxin in the past with no relief. Patient denies any trauma, falls, or usage of blood thinners. (SVETLANA GARRETT) - Related Data Allergies/Adverse Reactions: hydrocodone [Hydrocodone] Allergy (Severe, Verified 10/03/17 07:42) sertraline HCl [From Zoloft] Allergy (Severe, Verified 10/03/17 07:42) hives, resp arrest propranolol HCl [From Inderal] Allergy (Intermediate, Verified 10/03/17 07:42) Hives ondansetron Allergy (Unknown, Verified 10/03/17 07:42) lamotrigine [From Lamictal] Allergy (Verified 10/03/17 07:42) propranolol Allergy (Verified 10/03/17 07:42) Past Medical History - General Information source: Patient - Social History Smoking Status: Never Smoker Cigarette use (# per day): No Frequency of alcohol use: None Drug Abuse: None Lives with: Family Family History: Arthritis, CVA, Hyperlipidemia, Hypertension, Malignancy, Other - Thyroid cancer - Past Medical History Cardiac Medical History: Reports: Hx Hypercholesterolemia, Hx Hypertension Pulmonary Medical History: Reports: Hx Asthma Neurological Medical History: Reports: Hx Cerebrovascular Accident, Hx Migraine Endocrine Medical History: Reports: Hx Diabetes Mellitus Type 2 - borderline diet controlled, Hx Hypothyroidism - Thyroid removed Renal/ Medical History: Reports: Hx Kidney Stones, Hx Ovarian Cysts Malignancy Medical History: GI Medical History: Reports: Hx Gastroesophageal Reflux Disease, Hx Irritable Bowel Musculoskeltal Medical History: Reports Hx Arthritis, Reports Hx Musculoskeletal Deformity, Reports Hx Musculoskeletal Trauma Psychiatric Medical History: Reports: Hx Bipolar Disorder, Hx Depression, Hx Schizophrenia Traumatic Medical History: Past Surgical History: Reports: Hx Abdominal Surgery - Ex Lap, Hx Appendectomy - Ex Lap, Hx Section, Hx Gynecologic Surgery - hyst, Hx Hysterectomy, Hx Orthopedic Surgery - Right knee arthroplasty 07/29/17, Hx Thyroid Surgery, Hx Tonsillectomy - Immunizations Immunizations up to date: Yes Hx Diphtheria, Pertussis, Tetanus Vaccination: Yes Hx Pneumococcal Vaccination: 12/15/15 Review of Systems - Review of Systems Constitutional: No symptoms reported EENT: No symptoms reported Cardiovascular: No symptoms reported Respiratory: No symptoms reported Gastrointestinal: No symptoms reported Genitourinary: No symptoms reported Female Genitourinary: No symptoms reported Musculoskeletal: See HPI, Back pain - right sided "sciatica" pain Skin: No symptoms reported Hematologic/Lymphatic: No symptoms reported Neurological/Psychological: No symptoms reported -: Yes All other systems reviewed and negative Physical Exam - Vital signs Vitals: Temp Pulse Resp BP Pulse Ox 98.5 F 97 18 163/95 H 96 10/09/17 04:58 10/09/17 04:58 10/09/17 04:58 10/09/17 04:58 10/09/17 04:58 - Notes Notes: Physical Exam: General: Alert, appears well. HEENT: Normocephalic. Atraumatic. PERRL. Extraocular movements intact. Oropharynx clear. Neck: Supple. Non-tender. Respiratory: No respiratory distress. Clear and equal breath sounds bilaterally. Cardiovascular: Regular rate and rhythm. Abdominal: Normal Inspection. Non-tender. No distension. Normal Bowel Sounds. Back: Non-tender. No deformity or step off. Extremities: Moves all four extremities. Upper extremities: Normal inspection. Normal ROM. Lower extremities: Normal inspection. No edema. Normal ROM. Neurological: Normal cognition. AAOx4. Normal speech. Psychological: Normal affect. Normal Mood. Skin: Warm. Dry. Normal color. (SVETLANA GARRETT) Course - Re-evaluation Re-evalutation: 10/09/17 06:37 Patient well-appearing in no acute distress no concerning signs for infection or cauda equina. Will provide Toradol Decadron follow-up with her pain clinic later this month as previously scheduled. (YEE ALCALA) - Vital Signs Vital signs: Temp Pulse Resp BP Pulse Ox 98.5 F 84 18 158/108 H 98 10/09/17 04:58 10/09/17 07:19 10/09/17 07:19 10/09/17 07:19 10/09/17 07:19 Discharge - Discharge Clinical Impression: Sciatic leg pain Condition: Good Disposition: HOME, SELF-CARE Instructions: Sciatica ([facility]) Referrals: BORIS WISE MD [Primary Care Provider] - Follow up as needed Scribe Attestation: 10/10/17 06:24 I personally performed the services described documentation, reviewed and edited the documentation which was dictated to describe my presence, and it accurately records my words and actions. (YEE ALCALA) Scribe Documentation - Scribe Written by Scribe:: Michelle Jones, 10/09/2017 0801 acting as scribe for :: Dar
[2017-10-09] MEDS ORDERED: KETOROLAC TROMETHAMINE 60 MG/2 ML SDV IM ONE (06:17)
[2017-10-09] MEDS ORDERED: DEXAMETHASONE SOD PHOS INJ 10 MG/1 ML VIAL IM ONE (06:18)
[2017-10-09 07:25] VITALS: BP 158/108
== END 2017-10-09 07:19 | disposition home or self-care (01) ==
LOC: ER 04:54
DX: M54.31 Sciatica, right side (principal); Z79.899 Other long term (current) drug therapy; I10 Essential (primary) hypertension; J45.909 Unspecified asthma, uncomplicated; E11.9 Type 2 diabetes mellitus without complications
CPT/HCPCS: 99283; 96372; J1885; J1100

== ENCOUNTER 2017-10-15 08:07 | Emergency (ER) | payer MEDICARE, MEDICAID, OTHER ==
[2017-10-15 08:14] VITALS: BP 159/91
[2017-10-15] MEDS ORDERED: DEXAMETHASONE SOD PHOS INJ 10 MG/1 ML VIAL IM ONE (08:33)
[2017-10-15] MEDS ORDERED: KETOROLAC TROMETHAMINE 60 MG/2 ML SDV IM ONE (08:33)
--- NOTE | 2017-10-15 08:33 | ER Document Report ---
ED General - General Chief Complaint: Back Pain Stated Complaint: BACK PAIN Time Seen by Provider: 10/15/17 08:32 Mode of Arrival: Ambulatory Information source: Patient TRAVEL OUTSIDE OF THE [place] IN LAST 30 DAYS: No - HPI Notes: 61-year-old female with a chronic history chronic sciatic pain presents for acute exacerbation of her chronic sciatica, states pain is 7 out of 10, sharp and stabbing. Denies any recent trauma. States she has a appointment with pain management approximately 2 hours. Denies any bowel or bladder dysfunction , no saddle anesthesia. Patient also states she has been using an boil to help with her chronic pain. Denies fevers, chills, chest pain,palpitations, shortness of breath, dyspnea, nausea, vomiting, diarrhea, abdominal pain, hematuria,blurred vision, double vision, loss of vision, speech changes, LH, dizziness, syncope, headaches, wheezing, ST, URI, neck pain, weakness, numbness or tingling in bilateral upper or lower extremities equally, muscle paralysis, weakness in bilateral upper or lower extremities equally or rash. Denies IV drug use. - Related Data Allergies/Adverse Reactions: hydrocodone [Hydrocodone] Allergy (Severe, Verified 10/15/17 08:09) sertraline HCl [From Zoloft] Allergy (Severe, Verified 10/15/17 08:09) hives, resp arrest propranolol HCl [From Inderal] Allergy (Intermediate, Verified 10/15/17 08:09) Hives ondansetron Allergy (Unknown, Verified 10/15/17 08:09) lamotrigine [From Lamictal] Allergy (Verified 10/15/17 08:09) propranolol Allergy (Verified 10/15/17 08:09) Past Medical History - General Information source: Patient - Social History Smoking Status: Unknown if Ever Smoked Family History: Arthritis, CVA, Hyperlipidemia, Hypertension, Malignancy, Other - Thyroid cancer - Past Medical History Cardiac Medical History: Reports: Hx Hypercholesterolemia, Hx Hypertension Pulmonary Medical History: Reports: Hx Asthma Neurological Medical History: Reports: Hx Cerebrovascular Accident, Hx Migraine Endocrine Medical History: Reports: Hx Diabetes Mellitus Type 2 - borderline diet controlled, Hx Hypothyroidism - Thyroid removed. Denies: Hx Graves' Disease, Hx Hyperthyroidism Renal/ Medical History: Reports: Hx Kidney Stones, Hx Ovarian Cysts. Denies: Hx End Stage Renal Disease, Hx Peritoneal Dialysis, Hx Pelvic Inflammatory Disease Malignancy Medical History: Denies: Hx Breast Cancer, Hx Cervical Cancer, Hx Ovarian Cancer GI Medical History: Reports: Hx Gastroesophageal Reflux Disease, Hx Irritable Bowel Musculoskeltal Medical History: Reports Hx Arthritis, Reports Hx Musculoskeletal Deformity, Reports Hx Musculoskeletal Trauma Psychiatric Medical History: Reports: Hx Bipolar Disorder, Hx Depression, Hx Schizophrenia Denies: Hx Post Traumatic Stress Disorder Traumatic Medical History: Past Surgical History: Reports: Hx Abdominal Surgery - Ex Lap, Hx Appendectomy - Ex Lap, Hx Section, Hx Gynecologic Surgery - hyst, Hx Hysterectomy, Hx Orthopedic Surgery - Right knee arthroplasty 07/29/17, Hx Thyroid Surgery, Hx Tonsillectomy - Immunizations Immunizations up to date: Yes Hx Diphtheria, Pertussis, Tetanus Vaccination: Yes Hx Pneumococcal Vaccination: 12/15/15 Review of Systems - Review of Systems Constitutional: No symptoms reported EENT: No symptoms reported Cardiovascular: No symptoms reported Respiratory: No symptoms reported Gastrointestinal: No symptoms reported Genitourinary: No symptoms reported Female Genitourinary: No symptoms reported Musculoskeletal: See HPI Skin: No symptoms reported Hematologic/Lymphatic: No symptoms reported Neurological/Psychological: No symptoms reported Physical Exam - Vital signs Vitals: Temp Pulse Resp BP Pulse Ox 99.6 F 119 H 20 159/91 H 96 10/15/17 08:13 10/15/17 08:13 10/15/17 08:13 10/15/17 08:13 10/15/17 08:13 - Notes Notes: PHYSICAL EXAMINATION: GENERAL: Well-appearing, well-nourished and in no acute distress. HEAD: Atraumatic, normocephalic. EYES: Pupils equal round and reactive to light, extraocular movements intact, conjunctiva are normal. ENT: Nares patent, oropharynx clear without exudates. Moist mucous membranes. NECK: Normal range of motion, supple without lymphadenopathy LUNGS: Breath sounds clear to auscultation bilaterally and equal. No wheezes rales or rhonchi. HEART: Regular rate and rhythm without murmurs ABDOMEN: Soft, nontender, nondistended abdomen. No guarding, no rebound. No masses appreciated. Female : deferred Musculoskeletal: Normal range of motion, no pitting or edema. No cyanosis.Pain with flexion and extension at 30 degrees, positive straight leg test on left Normal hip rotation. DTR +2 in BLE equally. Strength 5 out of 5 both distally and proximally to bilateral lower extremities normal motor and sensory function in BLE equally. Distal pulses + 2 BLE equally. Noted paraspinal tenderness near L2 and L3. No spinal tenderness. No CVA tenderness bilaterally. Femoral pulses + 2 bilaterally and equally. No abrasions, scars, lacerations, ecchymosis of any recent trauma. normal gait. NEUROLOGICAL: Cranial nerves grossly intact. Normal speech, normal gait. Normal sensory, motor exams PSYCH: Normal mood, normal affect. SKIN: Warm, Dry, normal turgor, no rashes or lesions noted. Course - Re-evaluation Re-evalutation: 10/15/17 08:47 61-year-old female presents for evaluation of acute exacerbation of chronic sciatic pain - Vital Signs Vital signs: Temp Pulse Resp BP Pulse Ox 99.6 F 119 H 20 159/91 H 96 10/15/17 08:13 10/15/17 08:13 10/15/17 08:13 10/15/17 08:13 10/15/17 08:13 10/15/17 08:49 Patient appeared to have dramatic relief from pain with Decadron and Toradol shot, will be going to her pain management appointment. Discussed patient to follow-up with inventory control specialist and her primary care provider within the next 3 days. Discharge - Discharge Clinical Impression: Sciatic leg pain Condition: Stable Disposition: HOME, SELF-CARE Instructions: Pain Medication Injection ([facility]), Low Back Pain ([facility]), Muscle Strain ([facility]), Sciatica ([facility]) Referrals: BORIS WISE MD [ACTIVE STAFF] - Follow up in 3-5 days MECHE CLIFFORD MD [ACTIVE STAFF] - Follow up as needed
== END 2017-10-15 08:53 | disposition home or self-care (01) ==
LOC: ER 08:07
DX: M54.30 Sciatica, unspecified side (principal); E78.00 Pure hypercholesterolemia, unspecified; I10 Essential (primary) hypertension; E11.9 Type 2 diabetes mellitus without complications; Z86.73 Personal history of transient ischemic attack (TIA), and cerebral infarction without residual deficits; Z90.710 Acquired absence of both cervix and uterus
CPT/HCPCS: 99283; 96372; J1885; J1100

== ENCOUNTER 2017-10-15 17:59 | Emergency (ER) | payer MEDICARE, MEDICAID, OTHER ==
[2017-10-15 19:13] VITALS: BP 148/96
[2017-10-15] MEDS ORDERED: ACETAMINOPHEN 325 MG TABLET PO ONE (19:15)
--- NOTE | 2017-10-15 19:19 | ER Document Report ---
ED General - General Chief Complaint: Leg Pain Stated Complaint: HEADACHE/LEG PAIN Time Seen by Provider: 10/15/17 19:14 Mode of Arrival: Ambulatory Information source: Patient Notes: 61-year-old female presented ED for count complaint of the same pain in her head back and radiating down her leg that she was seen for this morning. She states she went to her appointment with pain management and they stated they could not take her because she was on Xanax. She states she spoke with Dr. Clifford who stated he would put her consult in for another pain management. Patient states there is no new injuries there is no change in the pain is the same pain she always has because she knows she cannot get into pain management that the pain started being worse. She does have an appointment with her [facility]. She also states she is trying to find a new primary care doctor because she does not want to go to the old doctor but she has high blood pressure. Patient instructed she needs to find a primary care doctor to keep this blood pressure under control. She states that her previous primary care doctor gave her refills on all of her blood pressure medicines and that is why she is not found a new doctor yet. She states she is trying to research all primary doctor before she goes to them. TRAVEL OUTSIDE OF THE [place] IN LAST 30 DAYS: No - HPI Onset: Other - Chronic Quality of pain: Sharp, Throbbing Severity: Severe Pain Level: 5 Associated symptoms: Headache, Other - Low back pain radiating down her right leg Exacerbated by: Movement, Walking Relieved by: Denies Similar symptoms previously: Yes Recently seen / treated by doctor: Yes - Related Data Allergies/Adverse Reactions: hydrocodone [Hydrocodone] Allergy (Severe, Verified 10/15/17 08:09) sertraline HCl [From Zoloft] Allergy (Severe, Verified 10/15/17 08:09) hives, resp arrest propranolol HCl [From Inderal] Allergy (Intermediate, Verified 10/15/17 08:09) Hives ondansetron Allergy (Unknown, Verified 10/15/17 08:09) lamotrigine [From Lamictal] Allergy (Verified 10/15/17 08:09) propranolol Allergy (Verified 10/15/17 08:09) Past Medical History - General Information source: Patient - Social History Smoking Status: Former Smoker Chew tobacco use (# tins/day): No Frequency of alcohol use: Occasional Drug Abuse: None Lives with: Family Family History: Arthritis, CVA, Hyperlipidemia, Hypertension, Malignancy, Other - Thyroid cancer Patient has suicidal ideation: No Patient has homicidal ideation: No - Past Medical History Cardiac Medical History: Reports: Hx Hypercholesterolemia, Hx Hypertension Pulmonary Medical History: Reports: Hx Asthma EENT Medical History: Reports: None Neurological Medical History: Reports: Hx Cerebrovascular Accident, Hx Migraine Endocrine Medical History: Reports: Hx Diabetes Mellitus Type 2 - borderline diet controlled, Hx Hypothyroidism - Thyroid removed Renal/ Medical History: Reports: Hx Kidney Stones, Hx Ovarian Cysts Malignancy Medical History: Reports: None GI Medical History: Reports: Hx Gastroesophageal Reflux Disease, Hx Irritable Bowel Musculoskeltal Medical History: Reports Hx Arthritis, Reports Hx Musculoskeletal Deformity, Reports Hx Musculoskeletal Trauma Skin Medical History: Reports None Psychiatric Medical History: Reports: Hx Bipolar Disorder, Hx Depression, Hx Schizophrenia Traumatic Medical History: Reports: None Infectious Medical History: Reports: None Past Surgical History: Reports: Hx Abdominal Surgery - Ex Lap, Hx Appendectomy - Ex Lap, Hx Section, Hx Gynecologic Surgery - hyst, Hx Hysterectomy, Hx Orthopedic Surgery - Right knee arthroplasty 07/29/17, Hx Thyroid Surgery, Hx Tonsillectomy - Immunizations Immunizations up to date: Yes Hx Diphtheria, Pertussis, Tetanus Vaccination: Yes Hx Pneumococcal Vaccination: 12/15/15 Review of Systems - Review of Systems Constitutional: No symptoms reported EENT: No symptoms reported Cardiovascular: No symptoms reported Respiratory: No symptoms reported Gastrointestinal: No symptoms reported Genitourinary: No symptoms reported Female Genitourinary: No symptoms reported Musculoskeletal: Back pain Skin: No symptoms reported Hematologic/Lymphatic: No symptoms reported Neurological/Psychological: Headaches -: Yes All other systems reviewed and negative Physical Exam - Vital signs Vitals: Temp Pulse Resp BP Pulse Ox 98.5 F 123 H 20 159/109 H 97 10/15/17 18:32 10/15/17 18:32 10/15/17 18:32 10/15/17 18:32 10/15/17 18:32 Interpretation: Normal - General General appearance: Appears well, Alert - HEENT Head: Normocephalic, Atraumatic Eyes: Normal Pupils: PERRL - Respiratory Respiratory status: No respiratory distress Chest status: Nontender Breath sounds: Normal Chest palpation: Normal - Cardiovascular Rhythm: Regular Heart sounds: Normal auscultation Murmur: No - Abdominal Inspection: Normal Distension: No distension Bowel sounds: Normal Tenderness: Nontender Organomegaly: No organomegaly - Back Back: Normal, Tender. No: Deformity/step-off, CVA tenderness, Vertebra tenderness, Scars, Scoliosis - Extremities General upper extremity: Normal inspection, Nontender, Normal color, Normal ROM , Normal temperature General lower extremity: Normal inspection, Nontender, Normal color, Normal ROM , Normal temperature, Normal weight bearing. No: Juliana's sign - Neurological Neuro grossly intact: Yes Cognition: Normal Orientation: AAOx4 Vicky Coma Scale Eye Opening: Spontaneous [place] Coma Scale Verbal: Oriented Vicky Coma Scale Motor: Obeys Commands Vicky Coma Scale Total: 15 Speech: Normal Motor strength normal: LUE, RUE, LLE, RLE Sensory: Normal - Psychological Associated symptoms: Normal affect, Normal mood - Skin Skin Temperature: Warm Skin Moisture: Dry Skin Color: Normal Course - Re-evaluation Re-evalutation: 10/15/17 22:58 She has had no new injuries no new pain. This is the same pain she is seen here frequently for. There is no changes in the pain. She states she came back today because she found that she could not go to the pain management and she needs some narcotics. Patient has been informed many times that she was not able to get narcotics for this chronic pain in the emergency room. She states that Dr. Clifford is trying to get her into a new pain management. After performing a Medical Screening Examination, I estimate there is LOW risk for EXPANDING OR RUPTURED ABDOMINAL AORTIC ANEURYSM, CAUDA EQUINA SYNDROME, EPIDURAL MASS LESION, or HERNIATED DISK CAUSING SEVERE SPINAL STENOSIS, thus I consider the discharge disposition reasonable. I have reevaluated this patient multiple times and no significant life threatening changes are noted. The patient and I have discussed the diagnosis and risks, and we agree with discharging home and close follow-up. We also discussed returning to the Emergency Department immediately if new or worsening symptoms occur with the understanding that symptoms and presentations can change. We have discussed the symptoms which are most concerning (e.g., saddle anesthesia, urinary or bowel incontinence or retention, changing or worsening pain) that necessitate immediate return. - Vital Signs Vital signs: Temp Pulse Resp BP Pulse Ox 98.5 F 110 H 18 148/96 H 97 07/03/18 18:32 10/15/17 19:12 10/15/17 19:12 10/15/17 19:12 10/15/17 19:12 Discharge - Discharge Clinical Impression: Hypertension Qualifiers: Hypertension type: unspecified Qualified Code(s): I10 - Essential (primary) hypertension Low back pain Qualifiers: Chronicity: chronic Back pain laterality: bilateral Sciatica presence: with sciatica Sciatica laterality: sciatica of right side Qualified Code(s): M54.41 - Lumbago with sciatica, right side; G89.29 - Other chronic pain; G89.29 - Other chronic pain Headache Qualifiers: Headache type: unspecified Headache chronicity pattern: chronic headache Intractability: not intractable Qualified Code(s): R51 - Headache Condition: Stable Disposition: HOME, SELF-CARE Instructions: Family Physicians / Practices Additional Instructions: Chronic Pain Control Stress, inactivity, and depression make pain more severe regardless of the cause of the pain. Stress and poor physical condition can cause pain such as headaches and backache. Relaxation: Rest in a quiet place with your eyes closed for 20 minutes twice daily. Concentrate on a pleasant image, or simply "feel" your breathing. Clear your mind. Stress management: Deal with your "stressors." Either take action, or eliminate the stressor from your life. Don't let things hang over you. Accept those things you can't change. Nutrition: Eat small, balanced meals -- don't skip, don't overeat. Meals should be high-carbohydrate, low-sugar, low-fat. Exercise: Exercise helps painful conditions and eases stress. Get 30 minutes of moderate exercise, five days a week. Do an activity that does not flare your pain. Precautions: Pain which continues to disrupt daily activities, or which changes in nature, requires a medical evaluation. Pain Clinic referral is available. We do not manage chronic pain in the Emergency Department. We will try to appropriately help you through an acute flare of your chronic painful condition , but for on-going chronic pain that does not improve, you will need to see your private doctor or ski edge painter. We do not provide repeated medication management of chronic painful conditions. If you wish, we can provide the name of local pain management physicians. Chronic Back Pain Chronic back pain (pain persisting longer than three months) is a common problem. A medical evaluation can look for herniated disc, arthritis, osteoporosis, tumors, and infections. But at least half the time, there's no obvious treatable cause. Anxiety and depression tend to worsen back pain. Ibuprofen or other anti-inflammatory medicine can help. A heating pad, used for 15-20 minutes at a time, can ease pain. For this type of back pain, narcotic medicines should be avoided. Muscle relaxers are rarely helpful unless you're having spasms. Activity is important. Find an aerobic exercise program that your back can tolerate. Too much rest makes back pain worse. Specific back exercises are usually prescribed to strengthen the back and abdominal muscles. Often, a physical therapist can help. Avoid heavy lifting, working while bent over, or standing with both knees straight. Most back pain patients do better with a firm mattress. If new symptoms of a "herniated disc" (radiation of pain, numbness, or tingling down the back of the leg or weakness in the leg) occur, you should be re-examined. HEADACHE: The physician does not feel that the headache you are experiencing has a serious underlying cause. Most headaches are due to emotional stress, with resultant muscle tension (tension headache). Occasionally, headaches are secondary to changes in the blood vessels of the scalp (vascular headache and migraine headache). Sometimes, a headache is the first symptom of another developing illness, such as a viral infection. You have no evidence of stroke, bleeding, meningitis, or other serious cause of your headache. The treatment of headaches varies with the severity and cause of the pain. Not all headaches need pain shots. In fact, there is evidence that using narcotics for headaches may make them worse in the long run. The physician will determine the therapy that's in your best interest. If you develop a fever, if the headache is different from any you've previously experienced, or if the headache progressively worsens, then call your physician at once or go to the emergency room. Acetaminophen Acetaminophen may be taken for pain relief or fever control. It's much safer than aspirin, offering a wider range of "safe" dosages. It is safe during . Some brand names are Tylenol, Panadol, Datril, Anacin 3, Tempra, and Liquiprin. Acetaminophen can be repeated every four hours. The following are maximum recommended dosages: WEIGHT Dose Drops Elixir Chewable( 80mg) (LBS.) drprs=droppers tsp=teaspoon 6 40 mg .4 ml (1/2) 6-11 80 mg .8 ml (full) 1/2 tsp 1 tab 12-16 120 mg 1 1/2 drprs 3/4 tsp 1 1/2 tabs 17-23 160 mg 2 drprs 1 tsp 2 tabs 24-30 240 mg 3 drprs 1 1/2 tsp 3 tabs 30-35 320 mg 2 tsp 4 tabs 36-41 360 mg 2 1/4 tsp 4 1 /2 tabs 42-47 400 mg 2 1/2 tsp 5 tabs 48-53 480 mg 3 tsp 6 tabs 54-59 520 mg 3 1/4 tsp 6 1 /2 tabs 60-64 560 mg 3 1/2 tsp 7 tabs 65-70 600 mg 3 3/4 tsp 7 1 /2 tabs 71-76 640 mg 4 tsp 8 tabs 77-82 720 mg 4 1/2 tsp 9 tabs 83-88 800 mg 5 tsp 10 tabs >89 pounds or adults 650 mg to 900 mg Acetaminophen can be repeated every four hours. Maximum daily dose not to exceed 4000 mg. These maximum recommended dosages are slightly higher than the dosages written on the product container, but these dosages are very safe and well below the toxic dosage for acetaminophen. FOLLOW-UP CARE: If you have been referred to a physician for follow-up care, call the physician s office for an appointment as you were instructed or within the next two days. If you experience worsening or a significant change in your symptoms, notify the physician immediately or return to the Emergency Department at any time for re-evaluation. Forms: Elevated Blood Pressure Referrals: MECHE CLIFFORD MD [ACTIVE STAFF] - Follow up as needed [facility] [Provider Group] - Follow up as needed
== END 2017-10-15 19:27 | disposition home or self-care (01) ==
LOC: ER 17:59
DX: R51 Headache (principal); M54.41 Lumbago with sciatica, right side; G89.29 Other chronic pain; I10 Essential (primary) hypertension; E78.00 Pure hypercholesterolemia, unspecified; Z88.6 Allergy status to analgesic agent; Z87.891 Personal history of nicotine dependence; Z86.73 Personal history of transient ischemic attack (TIA), and cerebral infarction without residual deficits; Z87.442 Personal history of urinary calculi
CPT/HCPCS: 99283; A9270

== ENCOUNTER 2017-10-20 07:01 | Emergency (ER) | payer MEDICARE, MEDICAID, OTHER ==
[2017-10-20 07:07] VITALS: BP 151/97
[2017-10-20] MEDS ORDERED: KETOROLAC TROMETHAMINE 60 MG/2 ML SDV IM ONE (08:05)
[2017-10-20] MEDS ORDERED: DEXAMETHASONE SOD PHOS INJ 10 MG/1 ML VIAL IM ONE (08:05)
--- NOTE | 2017-10-20 08:12 | ER Document Report ---
ED General - General Chief Complaint: Leg Pain Stated Complaint: LEG PAIN Time Seen by Provider: 10/20/17 07:47 Mode of Arrival: Ambulatory Information source: Patient TRAVEL OUTSIDE OF THE [place] IN LAST 30 DAYS: No - HPI Notes: 61-year-old female with a medical history of chronic sciatica and lower back pain presents to the ED today for an acute exacerbation of her chronic back pain. Patient needs to be affiliated with pain management by stop seeing them according to her because it "was not doing anything for her". Patient takes ibuprofen to help with her pain control. Does not take any blood thinners or anticoagulants. patient was being cared for by Dr. Cho but recently left his practice " because I didnt agree with him". Patient states she usually comes to the ED where she gets a shot of Toradol and Decadron which helps for her pain. Denies fevers, chills, chest pain,palpitations, shortness of breath , dyspnea, nausea, vomiting, diarrhea, abdominal pain, hematuria,blurred vision , double vision, loss of vision, speech changes, LH, dizziness, syncope, headaches, wheezing, ST, URI, neck pain, weakness, bowel or bladder dysfunction , saddle anesthesia, numbness or tingling in bilateral upper or lower extremities equally, muscle paralysis, weakness in bilateral upper or lower extremities equally or rash. Denies IV drug use. - Related Data Allergies/Adverse Reactions: hydrocodone [Hydrocodone] Allergy (Severe, Verified 10/15/17 08:09) sertraline HCl [From Zoloft] Allergy (Severe, Verified 10/15/17 08:09) hives, resp arrest propranolol HCl [From Inderal] Allergy (Intermediate, Verified 10/15/17 08:09) Hives ondansetron Allergy (Unknown, Verified 10/15/17 08:09) lamotrigine [From Lamictal] Allergy (Verified 10/15/17 08:09) propranolol Allergy (Verified 10/15/17 08:09) Past Medical History - General Information source: Patient - Social History Smoking Status: Never Smoker Chew tobacco use (# tins/day): No Frequency of alcohol use: None Drug Abuse: None Family History: Arthritis, CVA, Hyperlipidemia, Hypertension, Malignancy, Other - Thyroid cancer Patient has suicidal ideation: No Patient has homicidal ideation: No - Past Medical History Cardiac Medical History: Reports: Hx Hypercholesterolemia, Hx Hypertension Pulmonary Medical History: Reports: Hx Asthma Neurological Medical History: Reports: Hx Cerebrovascular Accident, Hx Migraine Endocrine Medical History: Reports: Hx Diabetes Mellitus Type 2 - borderline diet controlled, Hx Hypothyroidism - Thyroid removed. Denies: Hx Graves' Disease, Hx Hyperthyroidism Renal/ Medical History: Reports: Hx Kidney Stones, Hx Ovarian Cysts. Denies: Hx End Stage Renal Disease, Hx Peritoneal Dialysis, Hx Pelvic Inflammatory Disease Malignancy Medical History: Denies: Hx Breast Cancer, Hx Cervical Cancer, Hx Ovarian Cancer GI Medical History: Reports: Hx Gastroesophageal Reflux Disease, Hx Irritable Bowel Musculoskeltal Medical History: Reports Hx Arthritis, Reports Hx Musculoskeletal Deformity, Reports Hx Musculoskeletal Trauma Psychiatric Medical History: Reports: Hx Bipolar Disorder, Hx Depression, Hx Schizophrenia Denies: Hx Post Traumatic Stress Disorder Traumatic Medical History: Past Surgical History: Reports: Hx Abdominal Surgery - Ex Lap, Hx Appendectomy - Ex Lap, Hx Section, Hx Gynecologic Surgery - hyst, Hx Hysterectomy, Hx Orthopedic Surgery - Right knee arthroplasty 07/29/17, Hx Thyroid Surgery, Hx Tonsillectomy - Immunizations Immunizations up to date: Yes Hx Diphtheria, Pertussis, Tetanus Vaccination: Yes Hx Pneumococcal Vaccination: 12/15/15 Review of Systems - Review of Systems Constitutional: No symptoms reported EENT: No symptoms reported Cardiovascular: No symptoms reported Respiratory: No symptoms reported Gastrointestinal: No symptoms reported Genitourinary: No symptoms reported Female Genitourinary: No symptoms reported Musculoskeletal: See HPI Skin: No symptoms reported Hematologic/Lymphatic: No symptoms reported Neurological/Psychological: No symptoms reported Physical Exam - Vital signs Vitals: Temp Pulse Resp BP Pulse Ox 98.2 F 94 20 151/97 H 95 10/20/17 07:05 10/20/17 07:05 10/20/17 07:05 10/20/17 07:05 10/20/17 07:05 - Notes Notes: PHYSICAL EXAMINATION: GENERAL: Well-appearing, well-nourished and in no acute distress. HEAD: Atraumatic, normocephalic. EYES: Pupils equal round and reactive to light, extraocular movements intact, conjunctiva are normal. ENT: Nares patent, oropharynx clear without exudates. Moist mucous membranes. NECK: Normal range of motion, supple without lymphadenopathy LUNGS: Breath sounds clear to auscultation bilaterally and equal. No wheezes rales or rhonchi. HEART: Regular rate and rhythm without murmurs ABDOMEN: Soft, nontender, nondistended abdomen. No guarding, no rebound. No masses appreciated. Female : deferred Musculoskeletal: Normal range of motion, no pitting or edema. No cyanosis. Pain with flexion and extension at 30 degrees, positive straight leg test. Normal hip rotation. DTR +2 in BLE equally. Strength 5 out of 5 both distally and proximally to bilateral lower extremities normal motor and sensory function in BLE equally. Distal pulses + 2 BLE equally. Noted paraspinal tenderness near L2 and L3 on right. No spinal tenderness. No CVA tenderness bilaterally. Femoral pulses + 2 bilaterally and equally. No abrasions, scars, lacerations, ecchymosis of any recent trauma. normal gait. NEUROLOGICAL: Cranial nerves grossly intact. Normal speech, normal gait. Normal sensory, motor exams PSYCH: Normal mood, normal affect. SKIN: Warm, Dry, normal turgor, no rashes or lesions noted. Course - Re-evaluation Re-evalutation: 10/20/17 08:30 Healthy 61-year-old female who is afebrile vitals stable and in no distress presents to the ED for pain management of her chronic back pain. I have no concern for acute or chronic equinus syndrome, bowel or bladder dysfunction. She given 10 of Decadron IM and 60 of Toradol IM. After performing a Medical Screening Examination, I estimate there is LOW risk for EXPANDING OR RUPTURED ABDOMINAL AORTIC ANEURYSM, CAUDA EQUINA SYNDROME, EPIDURAL MASS ABSCESS OR LESION(S), OSTEOMYELITIS,PERSONAL HISTORY OF CANCER, IMMUNOSUPPERSSSION, HISTORY OF IV DRUG USE, FRACTURE, CORD COMPERSSION, CANCER, RETROPERITONEAL BLEED, SPINAL EPIDURAL HEMATOMA, or HERNIATED DISK CAUSING SEVERE SPINAL STENOSIS, thus I consider the discharge disposition reasonable. I have reevaluated this patient multiple times and no significant life threatening changes are noted. The patient and I have discussed the diagnosis and risks, and we agree with discharging home and close follow-up. We also discussed returning to the Emergency Department immediately if new or worsening symptoms occur with the understanding that symptoms and presentations can change. We have discussed the symptoms which are most concerning (e.g., saddle anesthesia, urinary or bowel incontinence or retention, changing or worsening pain) that necessitate immediate return. - Vital Signs Vital signs: Temp Pulse Resp BP Pulse Ox 98.2 F 94 20 151/97 H 95 10/20/17 07:05 10/20/17 07:05 10/20/17 07:05 10/20/17 07:05 10/20/17 07:05 Discharge - Discharge Clinical Impression: Low back pain, Sciatica Condition: Stable Disposition: HOME, SELF-CARE Instructions: Chronic Back Pain ([facility]), Low Back Pain ([facility]), Stretching Exercises for the Back ([facility]) Referrals: LILLIE SANCHEZ MD [ACTIVE STAFF] - Follow up in 3-5 days MECHE CLIFFORD MD [ACTIVE STAFF] - Follow up as needed (prn)
== END 2017-10-20 08:27 | disposition home or self-care (01) ==
LOC: ER 07:01
DX: M54.42 Lumbago with sciatica, left side (principal); M54.41 Lumbago with sciatica, right side; E78.00 Pure hypercholesterolemia, unspecified; I10 Essential (primary) hypertension; Z86.73 Personal history of transient ischemic attack (TIA), and cerebral infarction without residual deficits; Z87.442 Personal history of urinary calculi; Z90.710 Acquired absence of both cervix and uterus
CPT/HCPCS: 99283; 96372; J1885; J1100

== ENCOUNTER 2017-10-28 01:29 | Emergency (ER) | payer MEDICARE, MEDICAID, OTHER ==
[2017-10-28] MEDS ORDERED: KETOROLAC TROMETHAMINE INJ/PF 30 MG/1 ML SDV IM ONE (02:25)
--- NOTE | 2017-10-28 02:30 | ER Document Report ---
ED General - General Chief Complaint: Leg Pain Stated Complaint: LEG PAIN Time Seen by Provider: 10/28/17 02:21 Notes: Patient is a 61-year-old female who presents with complaint of sciatic type pain. She has chronic sciatica pain and flareups. She comes ER frequently and receives Toradol and Decadron shots. Last visit was on October 22 in which she received a Toradol shot. Says this usually helps significantly. Said the pain is no different than usual. Her typical sciatica pain starting with her right hip and radiating down her right leg. No loss of bowel control. No urinary retention. No new trauma or injuries. She has a upcoming appointment with a orthopedic back specialist at [facility]. She denies any history of kidney problems or kidney injuries. She has been urinating fine without difficulty. TRAVEL OUTSIDE OF THE [place] IN LAST 30 DAYS: No - Related Data Allergies/Adverse Reactions: hydrocodone [Hydrocodone] Allergy (Severe, Verified 10/15/17 08:09) sertraline HCl [From Zoloft] Allergy (Severe, Verified 10/15/17 08:09) hives, resp arrest propranolol HCl [From Inderal] Allergy (Intermediate, Verified 10/15/17 08:09) Hives ondansetron Allergy (Unknown, Verified 10/15/17 08:09) lamotrigine [From Lamictal] Allergy (Verified 10/15/17 08:09) propranolol Allergy (Verified 10/15/17 08:09) Past Medical History - Social History Smoking Status: Unknown if Ever Smoked Frequency of alcohol use: None Drug Abuse: None Family History: Arthritis, CVA, Hyperlipidemia, Hypertension, Malignancy, Other - Thyroid cancer Patient has suicidal ideation: No Patient has homicidal ideation: No - Past Medical History Cardiac Medical History: Reports: Hx Hypercholesterolemia, Hx Hypertension Pulmonary Medical History: Reports: Hx Asthma Neurological Medical History: Reports: Hx Cerebrovascular Accident, Hx Migraine Endocrine Medical History: Reports: Hx Diabetes Mellitus Type 2 - borderline diet controlled, Hx Hypothyroidism - Thyroid removed. Denies: Hx Graves' Disease, Hx Hyperthyroidism Renal/ Medical History: Reports: Hx Kidney Stones, Hx Ovarian Cysts. Denies: Hx End Stage Renal Disease, Hx Peritoneal Dialysis, Hx Pelvic Inflammatory Disease Malignancy Medical History: Denies: Hx Breast Cancer, Hx Cervical Cancer, Hx Ovarian Cancer GI Medical History: Reports: Hx Gastroesophageal Reflux Disease, Hx Irritable Bowel Musculoskeletal Medical History: Reports Hx Arthritis, Reports Hx Musculoskeletal Deformity, Reports Hx Musculoskeletal Trauma Psychiatric Medical History: Reports: Hx Bipolar Disorder, Hx Depression, Hx Schizophrenia Denies: Hx Post Traumatic Stress Disorder Traumatic Medical History: Past Surgical History: Reports: Hx Abdominal Surgery - Ex Lap, Hx Appendectomy - Ex Lap, Hx Section, Hx Gynecologic Surgery - hyst, Hx Hysterectomy, Hx Orthopedic Surgery - Right knee arthroplasty 07/29/17, Hx Thyroid Surgery, Hx Tonsillectomy - Immunizations Immunizations up to date: Yes Hx Diphtheria, Pertussis, Tetanus Vaccination: Yes Hx Pneumococcal Vaccination: 12/15/15 Review of Systems - Review of Systems Notes: My Normal Review Basic REVIEW OF SYSTEMS: CONSTITUTIONAL : Denies fever, chills, or sweats. Denies recent illness. GENITOURINARY: Denies difficulty urinating, painful urination, burning, frequency, or blood in urine. MUSCULOSKELETAL: Pain in right hip radiates down right leg. SKIN: Denies rash or skin lesions. NEUROLOGICAL: Denies sensory or motor loss. ALL OTHER SYSTEMS REVIEWED AND NEGATIVE. Physical Exam - Vital signs Vitals: Temp Pulse Resp BP Pulse Ox 98.4 F 85 16 133/92 H 98 10/28/17 01:45 10/28/17 01:45 10/28/17 01:45 10/28/17 01:45 10/28/17 01:45 - Notes Notes: General Appearance: Well nourished, alert, cooperative, no acute distress, moderate obvious discomfort. Vitals: reviewed, See vital signs table. Back: Pain over the right gluteal region made worse with palpation. No pain over mid lumbar spine to palpation Extremities: strength 5/5 in all extremities, good pulses in all extremities, no swelling or tenderness in the extremities, no edema. Skin: warm, dry, appropriate color, no rash Neuro: speech clear, oriented x 3, normal affect, responds appropriately to questions. Normal achilles reflex. Good strength with dorsi and plantar flexion against resistance. Course - Re-evaluation Re-evalutation: 10/28/17 23:52 Patient is requesting something different for her sciatic pain. Toradol is working the past. I did give a dose of Toradol here and she still had some pain. She said Motrin at home really is not helping. Therefore check patient' s kidney function is normal and I told her I would prescribe her Toradol to take over the next couple days. I informed I can only prescribe her some pills as I do not want take it for a prolonged period time as I do not want to affect her kidney function. Patient's kidney function today was normal. I did prescribe her the Toradol. I informed her she cannot take Motrin or ibuprofen or other NSAIDs when taking the Toradol. Patient to return to ER if she has any signs of cauda equina syndrome such as leg weakness, leg numbness, loss of bowel control, urinary retention, or perineal anesthesia. Patient agrees with plan will be discharged home. Patient has an upcoming appointment with her orthopedic back surgeon. Dictation of this chart was performed using voice recognition software; therefore, there may be some unintended grammatical errors. - Vital Signs Vital signs: Temp Pulse Resp BP Pulse Ox 98.6 F 80 16 146/98 H 99 10/28/17 05:53 10/28/17 05:53 10/28/17 05:53 10/28/17 05:53 10/28/17 05:53 - Laboratory Result Diagrams: 10/28/17 04:20 Laboratory results interpreted by me: 10/28/17 04:20 Sodium 135.8 L Potassium 3.5 L Chloride 95 L Glucose 129 H Discharge - Discharge Clinical Impression: Sciatica of right side Condition: Good Disposition: HOME, SELF-CARE Additional Instructions: I have prescribed her Toradol. Do not take other NSAID medicaitons such as Aspirin, Motrin, Ibuprofen, Aleve, or Advil when taking this medication. It is okay to take Tylenol. Please follow up with your othopedic appointment as scheduled. please return to the ER if you have loss of bowel control, inability to urinate, leg weakness, or numbness in your pelvic region. Prescriptions: Ketorolac Tromethamine [Toradol 10 mg Tablet] 10 mg PO Q8HP PRN #12 tablet PRN Reason:
[2017-10-28 05:04] LABS: ANION GAP 12 (5-19); BLOOD UREA NITROGEN 9 mg/dL (7-20); CALCIUM 10.1 mg/dL (8.4-10.2); CARBON DIOXIDE 29 mmol/L (22-30); CHLORIDE 95 mmol/L (98-107); GLUCOSE 129 mg/dL (75-110); POTASSIUM 3.5 mmol/L (3.6-5.0); SODIUM 135.8 mmol/L (137-145)
[2017-10-28 06:17] VITALS: BP 146/98
== END 2017-10-28 06:00 | disposition home or self-care (01) ==
LOC: ER 01:29
DX: G89.29 Other chronic pain (principal); M54.31 Sciatica, right side; Z88.5 Allergy status to narcotic agent; Z88.8 Allergy status to other drugs, medicaments and biological substances; I10 Essential (primary) hypertension; J45.909 Unspecified asthma, uncomplicated; E11.9 Type 2 diabetes mellitus without complications
CPT/HCPCS: 99283; 96372; 36415; 80048; J1885

== ENCOUNTER 2017-11-11 09:15 | Emergency (ER) | payer MEDICARE, MEDICAID, OTHER ==
[2017-11-11] MEDS ORDERED: KETOROLAC TROMETHAMINE INJ/PF 30 MG/1 ML SDV IM ONE (09:33)
[2017-11-11] MEDS ORDERED: DEXAMETHASONE SOD PHOS INJ 10 MG/1 ML VIAL IM ONE (09:33)
--- NOTE | 2017-11-11 09:37 | ER Document Report ---
ED Neck/Back Problem - General Chief Complaint: Back Pain Stated Complaint: BACK PAIN Time Seen by Provider: 11/11/17 09:32 Mode of Arrival: Ambulatory Information source: Patient TRAVEL OUTSIDE OF THE [place] IN LAST 30 DAYS: No - HPI Patient complains to provider of: Pain, Lower back Onset: Other - chronic Where: Home Onset: Chronic Timing: Still present Quality of pain: Burning Severity: Severe Pain Level: 5 Recent injury: No Associated symptoms: Radiation to leg, Lower back pain Exacerbated by: Movement of trunk, Sitting position Relieved by: Nothing Similar symptoms previously: Yes Recently seen / treated by doctor: Yes - Related Data Allergies/Adverse Reactions: hydrocodone [Hydrocodone] Allergy (Severe, Verified 11/11/17 09:17) sertraline HCl [From Zoloft] Allergy (Severe, Verified 11/11/17 09:17) hives, resp arrest propranolol HCl [From Inderal] Allergy (Intermediate, Verified 11/11/17 09:17) Hives ondansetron Allergy (Unknown, Verified 11/11/17 09:17) lamotrigine [From Lamictal] Allergy (Verified 11/11/17 09:17) propranolol Allergy (Verified 11/11/17 09:17) Past Medical History - General Information source: Patient - Social History Smoking Status: Former Smoker Cigarette use (# per day): No Chew tobacco use (# tins/day): No Smoking Education Provided: No Frequency of alcohol use: None Drug Abuse: None Lives with: Family Family History: Arthritis, CVA, Hyperlipidemia, Hypertension, Malignancy, Other - Thyroid cancer Patient has suicidal ideation: No Patient has homicidal ideation: No - Past Medical History Cardiac Medical History: Reports: Hx Hypercholesterolemia, Hx Hypertension Pulmonary Medical History: Reports: Hx Asthma Neurological Medical History: Reports: Hx Cerebrovascular Accident, Hx Migraine Endocrine Medical History: Reports: Hx Diabetes Mellitus Type 2 - borderline diet controlled, Hx Hypothyroidism - Thyroid removed Renal/ Medical History: Reports: Hx Kidney Stones, Hx Ovarian Cysts Malignancy Medical History: Reports: None GI Medical History: Reports: Hx Gastroesophageal Reflux Disease, Hx Irritable Bowel Musculoskeletal Medical History: Reports Hx Arthritis, Reports Hx Musculoskeletal Deformity, Reports Hx Musculoskeletal Trauma Skin Medical History: Reports None Psychiatric Medical History: Reports: Hx Bipolar Disorder, Hx Depression, Hx Schizophrenia Denies: Hx Post Traumatic Stress Disorder Traumatic Medical History: Reports: None Infectious Medical History: Reports: None Past Surgical History: Reports: Hx Abdominal Surgery - Ex Lap, Hx Appendectomy - Ex Lap, Hx Section, Hx Gynecologic Surgery - hyst, Hx Hysterectomy, Hx Orthopedic Surgery - Right knee arthroplasty 07/29/17, Hx Thyroid Surgery, Hx Tonsillectomy - Immunizations Immunizations up to date: Yes Hx Diphtheria, Pertussis, Tetanus Vaccination: Yes Hx Pneumococcal Vaccination: 12/15/15 Review of Systems - Review of Systems Constitutional: No symptoms reported EENT: No symptoms reported Cardiovascular: No symptoms reported Respiratory: No symptoms reported Gastrointestinal: No symptoms reported Genitourinary: No symptoms reported Female Genitourinary: No symptoms reported Musculoskeletal: Back pain Skin: No symptoms reported Hematologic/Lymphatic: No symptoms reported Neurological/Psychological: No symptoms reported -: Yes All other systems reviewed and negative Physical Exam - Vital signs Vitals: Temp Pulse Resp BP Pulse Ox 99.0 F 103 H 16 153/112 H 75 L 11/11/17 09:21 11/11/17 09:21 11/11/17 09:21 11/11/17 09:21 11/11/17 09:21 Interpretation: Normal - General General appearance: Appears well, Alert - HEENT Head: Normocephalic, Atraumatic Eyes: Normal Pupils: PERRL - Respiratory Respiratory status: No respiratory distress Chest status: Nontender Breath sounds: Normal Chest palpation: Normal - Cardiovascular Rhythm: Regular Heart sounds: Normal auscultation Murmur: No - Abdominal Inspection: Normal Distension: No distension Bowel sounds: Normal Tenderness: Nontender Organomegaly: No organomegaly - Back Back: Normal, Tender - Across right buttocks down right leg. No: Vertebra tenderness - Extremities General upper extremity: Normal inspection, Nontender, Normal color, Normal ROM , Normal temperature General lower extremity: Normal inspection, Nontender, Normal color, Normal ROM , Normal temperature, Normal weight bearing. No: Juliana's sign - Neurological Neuro grossly intact: Yes Cognition: Normal Orientation: AAOx4 Ira Coma Scale Eye Opening: Spontaneous Vicky Coma Scale Verbal: Oriented Vicky Coma Scale Motor: Obeys Commands Ira Coma Scale Total: 15 Speech: Normal Motor strength normal: LUE, RUE, LLE, RLE Sensory: Normal - Psychological Associated symptoms: Normal affect, Normal mood - Skin Skin Temperature: Warm Skin Moisture: Dry Skin Color: Normal Course - Re-evaluation Re-evalutation: 11/11/17 09:55 After performing a Medical Screening Examination, I estimate there is LOW risk for EXPANDING OR RUPTURED ABDOMINAL AORTIC ANEURYSM, CAUDA EQUINA SYNDROME, EPIDURAL MASS LESION, or HERNIATED DISK CAUSING SEVERE SPINAL STENOSIS, thus I consider the discharge disposition reasonable. I have reevaluated this patient multiple times and no significant life threatening changes are noted. The patient and I have discussed the diagnosis and risks, and we agree with discharging home and close follow-up. We also discussed returning to the Emergency Department immediately if new or worsening symptoms occur with the understanding that symptoms and presentations can change. We have discussed the symptoms which are most concerning (e.g., saddle anesthesia, urinary or bowel incontinence or retention, changing or worsening pain) that necessitate immediate return. - Vital Signs Vital signs: Temp Pulse Resp BP Pulse Ox 99.0 F 103 H 16 159/99 H 75 L 11/11/17 09:21 11/11/17 09:21 11/11/17 09:21 11/11/17 09:59 11/11/17 09:21 Discharge - Discharge Clinical Impression: Right-sided low back pain with sciatica Qualifiers: Chronicity: chronic Sciatica laterality: sciatica of right side Qualified Code( s): M54.41 - Lumbago with sciatica, right side Condition: Stable Disposition: HOME, SELF-CARE Instructions: Family Physicians / Practices Additional Instructions: Chronic Back Pain Chronic back pain (pain persisting longer than three months) is a common problem. A medical evaluation can look for herniated disc, arthritis, osteoporosis, tumors, and infections. But at least half the time, there's no obvious treatable cause. Anxiety and depression tend to worsen back pain. Ibuprofen or other anti-inflammatory medicine can help. A heating pad, used for 15-20 minutes at a time, can ease pain. For this type of back pain, narcotic medicines should be avoided. Muscle relaxers are rarely helpful unless you're having spasms. Activity is important. Find an aerobic exercise program that your back can tolerate. Too much rest makes back pain worse. Specific back exercises are usually prescribed to strengthen the back and abdominal muscles. Often, a physical therapist can help. Avoid heavy lifting, working while bent over, or standing with both knees straight. Most back pain patients do better with a firm mattress. If new symptoms of a "herniated disc" (radiation of pain, numbness, or tingling down the back of the leg or weakness in the leg) occur, you should be re-examined. Sciatica Your symptoms suggest "sciatica." The pain of sciatica typically radiates down the leg. Numbness in the foot or calf may also occur. Sciatica is caused by irritation of the sciatic nerve or its branches. The irritation can be due to a herniated disk in the spine, swelling and inflammation in the muscles surrounding the sciatic nerve, or direct injury of the nerve itself. Most cases of sciatica will resolve with medical treatment. Bed rest is usually recommended initially. Surgery is only necessary when the condition will not improve with rest and antiinflammatory medication. Muscle relaxers are often given if muscle soreness is present. Re-examination is necessary if you develop increasing numbness, localized weakness in the foot or ankle, or if the pain does not respond to rest. ICE PACKS: Apply ice packs frequently against the painful area. Many different schedules are recommended, such as "20 minutes on, 20 minutes off" or "one hour ice, two hours rest." If you need to work, you may need to go longer between ice treatments. You should plan to have the area ice packed AT LEAST one fourth of the time. The ice should be applied over the wrap, tape, or splint, or over a layer of cloth -- not directly against the skin. Some ice bags have a built-in cloth and can be put directly on the skin. WARM PACKS: After approximately two days, apply gentle heat (such as a heating pad or hot water bottle) for about 20 to 30 minutes about every two hours -- at least four times daily. Warmth and elevation will help you make a more rapid recovery , and will ease the pain considerably. Do not use HOT heat, and never apply heat for longer than 30 minutes. The continuous heat can invisibly damage skin and muscles -- even when no burn is seen on the surface. Damaged muscles can make you MORE sore. Stretching Exercises for the Back The physician has recommended that you begin stretching exercises for your back. These are often used even while the back is painful. However, you should notify the physician if the activities seem to increase your pain. PELVIC TILT: Lie flat on your back with knees bent. Tighten your stomach and buttock muscles so it flattens your lower back against the floor. Hold 10 seconds. Repeat 10 times, twice daily. KNEE RAISE: Lying on the back with knees bent, raise one knee to your chest, then the other. Hold both knees against the chest 10 seconds, then lower one knee at a time. Repeat 10 times, twice daily. PARTIAL TRUNK RAISE: Lie face down, arms at your sides. Keeping your waist on the floor, use your arms raise your chest up. Support yourself on your elbows for 30 seconds. Repeat twice daily, increasing the time to two minutes as you recover. Toradol Injection You have been given an injection of ketorolac tromethamine (Toradol). This is an excellent, safe drug for pain control. It also has potent antiinflammatory action. You should have significant pain relief within about one hour. Toradol is not addicting and is non-sedating. It does not interfere with driving or work. Call or return if you develop itching, hives, shortness of breath, or rash. STEROID MEDICATION: You have been given an injection of medicine of the cortisone/steroid class. This medication is used to control inflammation or allergy. It is often continued as a pill for a short period of time, until the acute process subsides. There are usually no side effects from short-term use of cortisone-like medications. Some persons feel an increased sense of well-being and are not sleepy at bedtime. Long-term use of cortisone medications is best avoided, unless required for a severe condition. If your condition does not remit, or relapses after the course of corticosteroid medication, you should consult your physician. FOLLOW-UP CARE: If you have been referred to a physician for follow-up care, call the physician s office for an appointment as you were instructed or within the next two days. If you experience worsening or a significant change in your symptoms, notify the physician immediately or return to the Emergency Department at any time for re-evaluation. Forms: Elevated Blood Pressure
[2017-11-11 10:02] VITALS: BP 159/99
== END 2017-11-11 10:02 | disposition home or self-care (01) ==
LOC: ER 09:15
DX: G89.29 Other chronic pain (principal); M54.41 Lumbago with sciatica, right side; I10 Essential (primary) hypertension; J45.909 Unspecified asthma, uncomplicated; Z87.891 Personal history of nicotine dependence; Z88.5 Allergy status to narcotic agent; Z88.8 Allergy status to other drugs, medicaments and biological substances
CPT/HCPCS: 99283; 96372; J1885; J1100

== ENCOUNTER 2017-11-27 09:22 | Emergency (ER) | payer MEDICARE, MEDICAID, OTHER ==
[2017-11-27 09:27] VITALS: BP 143/106
[2017-11-27] MEDS ORDERED: DEXAMETHASONE SOD PHOS INJ 10 MG/1 ML VIAL IM ONE (10:43)
[2017-11-27] MEDS ORDERED: KETOROLAC TROMETHAMINE INJ/PF 30 MG/1 ML SDV IM ONE (10:43)
--- NOTE | 2017-11-27 10:45 | ER Document Report ---
HPI - HPI Patient complains to provider of: leg pain Onset: This morning Onset/Duration: Gradual Quality of pain: Achy Pain Level: 3 Context: Patient presents complaining of a flareup of her sciatic nerve pain. Patient states that next month she is due to have a procedure to help minimize her pain symptoms. Patient denies any new injury. Patient denies any fever. Patient denies any urinary retention or incontinence. Patient states that in the past she has had steroid and Toradol shots that have helped with her pain symptoms. Patient is requesting these today. Associated Symptoms: Other. denies: Fever, Headache, Nausea, Vomiting Exacerbated by: Movement Relieved by: Denies Similar symptoms previously: No Recently seen / treated by doctor: No - ROS ROS below otherwise negative: Yes Systems Reviewed and Negative: Yes All other systems reviewed and negative - CONSTITUTIONAL Constitutional: DENIES: Fever, Chills - NEURO Neurology: DENIES: Headache, Weakness - URINARY Urinary: DENIES: Dysuria, Urgency, Frequency - REPRODUCTIVE Reproductive: DENIES: : - MUSCULOSKELETAL Musculoskeletal: REPORTS: Extremity pain - DERM Skin Color: Normal Skin Problems: None Past Medical History - General Information source: Patient - Social History Smoking Status: Never Smoker Chew tobacco use (# tins/day): No Frequency of alcohol use: Occasional Drug Abuse: None Lives with: Family Family History: Arthritis, CVA, Hyperlipidemia, Hypertension, Malignancy, Other - Thyroid cancer Patient has suicidal ideation: No Patient has homicidal ideation: No - Past Medical History Cardiac Medical History: Reports: Hx Hypercholesterolemia, Hx Hypertension Pulmonary Medical History: Reports: Hx Asthma Neurological Medical History: Reports: Hx Cerebrovascular Accident, Hx Migraine Endocrine Medical History: Reports: Hx Diabetes Mellitus Type 2 - borderline diet controlled, Hx Hypothyroidism - Thyroid removed. Denies: Hx Graves' Disease, Hx Hyperthyroidism Renal/ Medical History: Reports: Hx Kidney Stones, Hx Ovarian Cysts. Denies: Hx End Stage Renal Disease, Hx Peritoneal Dialysis, Hx Pelvic Inflammatory Disease Malignancy Medical History: Denies: Hx Breast Cancer, Hx Cervical Cancer, Hx Ovarian Cancer GI Medical History: Reports: Hx Gastroesophageal Reflux Disease, Hx Irritable Bowel Musculoskeletal Medical History: Reports Hx Arthritis, Reports Hx Musculoskeletal Deformity, Reports Hx Musculoskeletal Trauma Psychiatric Medical History: Reports: Hx Bipolar Disorder, Hx Depression, Hx Schizophrenia Denies: Hx Post Traumatic Stress Disorder Traumatic Medical History: Past Surgical History: Reports: Hx Abdominal Surgery - Ex Lap, Hx Appendectomy - Ex Lap, Hx Section, Hx Gynecologic Surgery - hyst, Hx Hysterectomy, Hx Orthopedic Surgery - Right knee arthroplasty 07/29/17, Hx Thyroid Surgery, Hx Tonsillectomy - Immunizations Immunizations up to date: Yes Hx Diphtheria, Pertussis, Tetanus Vaccination: Yes Hx Pneumococcal Vaccination: 12/15/15 Vertical Provider Document - CONSTITUTIONAL Agree With Documented VS: Yes Exam Limitations: No Limitations General Appearance: WD/WN, No Apparent Distress Notes: PHYSICAL EXAMINATION: GENERAL: Well-appearing, well-nourished and in no acute distress. HEAD: Atraumatic, normocephalic. EYES: sclera clear, anicteric, conjunctiva are normal. ENT: nares patent, Moist mucous membranes. NECK: Normal range of motion, supple no lymphadenopathy LUNGS: respirations unlabored HEART: Regular rate and rhythm without murmurs EXTREMITIES: Normal range of motion, no pitting or edema. No cyanosis. Gait normal, pt ambulates without difficulty BACK: Right lumbar paraspinal tenderness, right SI tenderness, no midline tenderness, no deformities or step-offs. No CVA tenderness. NEUROLOGICAL: Cranial nerves grossly intact. Normal speech, normal gait. No saddle anesthesia. PSYCH: Normal mood, normal affect. SKIN: Warm, Dry, normal turgor, no rashes or lesions noted. - INFECTION CONTROL TRAVEL OUTSIDE OF THE [place] IN LAST 30 DAYS: No Course - Re-evaluation Re-evalutation: 11/27/17 10:44 Controlled substance database reviewed. The patient presents with low back pain without signs of spinal cord compression, cauda equina syndrome, infection , aneurysm, or other serious etiology. The patient is neurologically intact. Given the extremely risk of these diagnoses further testing and evaluation for these possibilities does not appear to be indicated at this time. Patient has been instructed to return if the symptoms worsen or change in any way. 11/27/17 10:44 Patient states that she has had Toradol and Decadron injection in the past that seemed to help manage her symptoms. Patient is requesting these medications today. - Vital Signs Vital signs: Temp Pulse Resp BP Pulse Ox 99.0 F 99 16 143/106 H 97 11/27/17 09:26 11/27/17 09:26 11/27/17 09:26 11/27/17 09:26 11/27/17 09:26 Discharge - Discharge Clinical Impression: Sciatica Qualifiers: Laterality: right Qualified Code(s): M54.31 - Sciatica, right side Condition: Stable Disposition: HOME, SELF-CARE Instructions: Sciatica ([facility]), Toradol Injection ([facility]) Additional Instructions: Return immediately for any new or worsening symptoms Followup with your primary care provider, call tomorrow to make a followup appointment Take your medication that you have at home as prescribed to help with your pain symptoms. Referrals: [facility] [Provider Group] - Follow up tomorrow
== END 2017-11-27 11:15 | disposition home or self-care (01) ==
LOC: ER 09:22
DX: M54.31 Sciatica, right side (principal); M79.606 Pain in leg, unspecified; Z79.899 Other long term (current) drug therapy; I10 Essential (primary) hypertension; E11.9 Type 2 diabetes mellitus without complications; J45.909 Unspecified asthma, uncomplicated
CPT/HCPCS: 99283; 96372; J1885; J1100

== ENCOUNTER 2017-11-30 08:52 | Emergency (ER) | payer MEDICARE, MEDICAID ==
[2017-11-30 08:59] VITALS: BP 152/108
[2017-11-30] MEDS ORDERED: KETOROLAC TROMETHAMINE 60 MG/2 ML SDV IM ONE (09:18)
--- NOTE | 2017-11-30 09:22 | ER Document Report ---
HPI - HPI Patient complains to provider of: chronic sciatica pain Onset: Other - chronic Onset/Duration: Persistent Quality of pain: Burning Pain Level: 5 Context: 61-year-old female presents to ED for complaint of chronic sciatic pain. She states she went to her doctor and they are doing step for her knee but they have not treated her sciatic pain as yet. She states that Dr. Karina cabello told her that she was alcoholic and was not going to treat her sciatic pain anymore. She does have an appointment with orthopedics on 12/10/2017. She states she has not gone the pain management because they wanted to do holistic pain management with means she would not be able to take her Xanax and states she needs that. Associated Symptoms: Other - Sciatic pain to the right Exacerbated by: Standing, Movement, Walking Relieved by: Denies Similar symptoms previously: Yes Recently seen / treated by doctor: Yes - ROS ROS below otherwise negative: Yes - CONSTITUTIONAL Constitutional: DENIES: Fever, Chills - EENT EENT: DENIES: Sore Throat, Ear Pain, Nasal Drainage-Clear, Nasal Drainage- Purulent, Congestion, Eye problems - NEURO Neurology: DENIES: Headache, Weakness, Vision blurred, Dizzinesss / Vertigo - CARDIOVASCULAR Cardiovascular: DENIES: Chest pain - RESPIRATORY Respiratory: DENIES: Trouble Breathing, Coughing - GASTROINTESTINAL Gastrointestinal: DENIES: Abdominal Pain, Nausea, Patient vomiting, Diarrhea, Constipation, Black / Bloody Stools - URINARY Urinary: DENIES: Dysuria, Urgency, Frequency - REPRODUCTIVE Reproductive: DENIES: :, Postmenopausal, Abnormal bleeding / discharge - MUSCULOSKELETAL Musculoskeletal: REPORTS: Extremity pain - Right sciatica pain, Back Pain - Right sciatica pain. DENIES: Neck Pain, Swelling Notes: Signs or symptoms of cauda equina - DERM Skin Color: Normal Skin Problems: None Past Medical History - General Information source: Patient - Social History Smoking Status: Never Smoker Cigarette use (# per day): No Chew tobacco use (# tins/day): No Smoking Education Provided: No Frequency of alcohol use: Social Drug Abuse: None Lives with: Family Family History: Arthritis, CVA, Hyperlipidemia, Hypertension, Malignancy, Other - Thyroid cancer Patient has suicidal ideation: No Patient has homicidal ideation: No - Past Medical History Cardiac Medical History: Reports: Hx Hypercholesterolemia, Hx Hypertension Pulmonary Medical History: Reports: Hx Asthma EENT Medical History: Reports: None Neurological Medical History: Reports: Hx Cerebrovascular Accident, Hx Migraine Endocrine Medical History: Reports: Hx Diabetes Mellitus Type 2 - borderline diet controlled, Hx Hypothyroidism - Thyroid removed Renal/ Medical History: Reports: Hx Kidney Stones, Hx Ovarian Cysts Malignancy Medical History: Reports: None GI Medical History: Reports: Hx Gastroesophageal Reflux Disease, Hx Irritable Bowel Musculoskeletal Medical History: Reports Hx Arthritis, Reports Hx Musculoskeletal Deformity, Reports Hx Musculoskeletal Trauma Skin Medical History: Reports None Psychiatric Medical History: Reports: Hx Bipolar Disorder, Hx Depression, Hx Schizophrenia Traumatic Medical History: Reports: None Infectious Medical History: Reports: None Past Surgical History: Reports: Hx Abdominal Surgery - Ex Lap, Hx Appendectomy - Ex Lap, Hx Section, Hx Gynecologic Surgery - hyst, Hx Hysterectomy, Hx Orthopedic Surgery - Right knee arthroplasty 07/29/17, Hx Thyroid Surgery, Hx Tonsillectomy - Immunizations Immunizations up to date: Yes Hx Diphtheria, Pertussis, Tetanus Vaccination: Yes Hx Pneumococcal Vaccination: 12/15/15 Vertical Provider Document - CONSTITUTIONAL Agree With Documented VS: Yes Exam Limitations: No Limitations General Appearance: WD/WN, No Apparent Distress - INFECTION CONTROL TRAVEL OUTSIDE OF THE [place] IN LAST 30 DAYS: No - HEENT HEENT: Atraumatic, Normal ENT Exam, Normocephalic, PERRLA - NECK Neck: Normal Inspection, Supple, Thyroid Normal - RESPIRATORY Respiratory: Breath Sounds Normal, No Respiratory Distress - CARDIOVASCULAR Cardiovascular: Regular Rate, Regular Rhythm - BACK Back: Normal Inspection - She has her neck right-sided sciatic pain - MUSCULOSKELETAL/EXTREMETIES Musculoskeletal/Extremeties: MAEW, FROM, Tender - Right-sided sciatic pain - NEURO Level of Consciousness: Awake, Alert, Appropriate - DERM Integumentary: Warm, Dry, No Rash Course - Re-evaluation Re-evalutation: 11/30/17 09:49 Patient requested a Toradol shot and received a Toradol shot. She was instructed to follow-up with her primary doctor for any other medications. I explained to her we cannot continue to give her the steroid shot. She verbalized understanding of the reasoning when I explained this to her. After performing a Medical Screening Examination, I estimate there is LOW risk for EXPANDING OR RUPTURED ABDOMINAL AORTIC ANEURYSM, CAUDA EQUINA SYNDROME, EPIDURAL MASS LESION, or HERNIATED DISK CAUSING SEVERE SPINAL STENOSIS, thus I consider the discharge disposition reasonable. I have reevaluated this patient multiple times and no significant life threatening changes are noted. The patient and I have discussed the diagnosis and risks, and we agree with discharging home and close follow-up. We also discussed returning to the Emergency Department immediately if new or worsening symptoms occur with the understanding that symptoms and presentations can change. We have discussed the symptoms which are most concerning (e.g., saddle anesthesia, urinary or bowel incontinence or retention, changing or worsening pain) that necessitate immediate return. - Vital Signs Vital signs: Temp Pulse Resp BP Pulse Ox 97.9 F 96 18 152/108 H 97 11/30/17 08:54 11/30/17 09:18 11/30/17 08:54 11/30/17 08:54 11/30/17 08:54 Discharge - Discharge Clinical Impression: Sciatica Qualifiers: Laterality: right Qualified Code(s): M54.31 - Sciatica, right side Condition: Stable Disposition: HOME, SELF-CARE Additional Instructions: LOW BACK PAIN: Three out of every four people will have an episode of disabling back pain during their lifetime. Most commonly the pain is due to straining of the muscles and ligaments in the low back. Usual treatment includes: (1) Rest on a firm surface. Avoid lying on your stomach. (2) Ice pack the painful area. After a few days, gentle heat may be used intermittently to relax the area, or ice packs can be continued. (3) Medication may be needed -- muscle relaxers and antiinflammatory medicines are commonly used. (4) As the back improves, exercises are prescribed to strengthen the back and abdominal muscles. Your doctor will advise you on the proper care for your back at each stage in your recovery. You may be better in a few days -- or healing may take several weeks. If new symptoms of a "herniated disc" (radiation of pain, numbness, or tingling down the back of the leg or weakness in the leg) occur, you should be re-examined. Further testing may be necessary. Toradol Injection You have been given an injection of ketorolac tromethamine (Toradol). This is an excellent, safe drug for pain control. It also has potent antiinflammatory action. You should have significant pain relief within about one hour. Toradol is not addicting and is non-sedating. It does not interfere with driving or work. Call or return if you develop itching, hives, shortness of breath, or rash. Stretching Exercises for the Back The physician has recommended that you begin stretching exercises for your back. These are often used even while the back is painful. However, you should notify the physician if the activities seem to increase your pain. PELVIC TILT: Lie flat on your back with knees bent. Tighten your stomach and buttock muscles so it flattens your lower back against the floor. Hold 10 seconds. Repeat 10 times, twice daily. KNEE RAISE: Lying on the back with knees bent, raise one knee to your chest, then the other. Hold both knees against the chest 10 seconds, then lower one knee at a time. Repeat 10 times, twice daily. PARTIAL TRUNK RAISE: Lie face down, arms at your sides. Keeping your waist on the floor, use your arms raise your chest up. Support yourself on your elbows for 30 seconds. Repeat twice daily, increasing the time to two minutes as you recover. ICE PACKS: Apply ice packs frequently against the painful area. Many different schedules are recommended, such as "20 minutes on, 20 minutes off" or "one hour ice, two hours rest." If you need to work, you may need to go longer between ice treatments. You should plan to have the area ice packed AT LEAST one fourth of the time. The ice should be applied over the wrap, tape, or splint, or over a layer of cloth -- not directly against the skin. Some ice bags have a built-in cloth and can be put directly on the skin. WARM PACKS: After approximately two days, apply gentle heat (such as a heating pad or hot water bottle) for about 20 to 30 minutes about every two hours -- at least four times daily. Warmth and elevation will help you make a more rapid recovery , and will ease the pain considerably. Do not use HOT heat, and never apply heat for longer than 30 minutes. The continuous heat can invisibly damage skin and muscles -- even when no burn is seen on the surface. Damaged muscles can make you MORE sore. FOLLOW-UP CARE: If you have been referred to a physician for follow-up care, call the physician s office for an appointment as you were instructed or within the next two days. If you experience worsening or a significant change in your symptoms, notify the physician immediately or return to the Emergency Department at any time for re-evaluation. Forms: Elevated Blood Pressure Referrals: MARIKA BOTELLO MD [ACTIVE STAFF] - Follow up as needed [facility] [Provider Group] - Follow up as needed
== END 2017-11-30 09:33 | disposition home or self-care (01) ==
LOC: ER 08:52
DX: G89.29 Other chronic pain (principal); M54.31 Sciatica, right side; I10 Essential (primary) hypertension; J45.909 Unspecified asthma, uncomplicated; Z79.899 Other long term (current) drug therapy
CPT/HCPCS: 99283; 96372; J1885

== ENCOUNTER 2017-12-01 06:44 | Emergency (ER) | payer MEDICARE, MEDICAID ==
[2017-12-01 06:53] VITALS: BP 153/107
[2017-12-01] MEDS ORDERED: TRAMADOL HCL 50 MG TABLET PO ONE (08:15)
--- NOTE | 2017-12-01 08:19 | ER Document Report ---
HPI - HPI Patient complains to provider of: Sciatica Onset: Other - Past month Onset/Duration: Worse Quality of pain: Sharp Pain Level: 5 Context: Patient presents complaining of a flareup of her sciatica. Patient states that she is following up with orthopedics tomorrow about this complaint and does have a procedure later this month planned with pain management. Patient denies any new injury. Patient denies any fever. Patient does complain of radiculopathy to right lower extremity which is typical for her usual sciatica symptoms. Patient denies any urinary retention or incontinence. Associated Symptoms: Other - Right hip and leg pain. denies: Fever, Headache Exacerbated by: Movement Relieved by: Denies Similar symptoms previously: Yes Recently seen / treated by doctor: Yes - ROS ROS below otherwise negative: Yes Systems Reviewed and Negative: Yes All other systems reviewed and negative - CONSTITUTIONAL Constitutional: DENIES: Fever, Chills - NEURO Neurology: DENIES: Headache, Weakness - GASTROINTESTINAL Gastrointestinal: DENIES: Nausea - REPRODUCTIVE Reproductive: DENIES: : - MUSCULOSKELETAL Musculoskeletal: REPORTS: Extremity pain, Back Pain - DERM Skin Color: Normal Skin Problems: None Past Medical History - General Information source: Patient - Social History Smoking Status: Never Smoker Frequency of alcohol use: Occasional Drug Abuse: None Occupation: None Lives with: Family Family History: Arthritis, CVA, Hyperlipidemia, Hypertension, Malignancy, Other - Thyroid cancer - Past Medical History Cardiac Medical History: Reports: Hx Hypercholesterolemia, Hx Hypertension Pulmonary Medical History: Reports: Hx Asthma Neurological Medical History: Reports: Hx Cerebrovascular Accident, Hx Migraine Endocrine Medical History: Reports: Hx Diabetes Mellitus Type 2 - borderline diet controlled, Hx Hypothyroidism - Thyroid removed. Denies: Hx Graves' Disease, Hx Hyperthyroidism Renal/ Medical History: Reports: Hx Kidney Stones, Hx Ovarian Cysts. Denies: Hx End Stage Renal Disease, Hx Peritoneal Dialysis, Hx Pelvic Inflammatory Disease Malignancy Medical History: Denies: Hx Breast Cancer, Hx Cervical Cancer, Hx Ovarian Cancer GI Medical History: Reports: Hx Gastroesophageal Reflux Disease, Hx Irritable Bowel Musculoskeletal Medical History: Reports Hx Arthritis, Reports Hx Musculoskeletal Deformity, Reports Hx Musculoskeletal Trauma Psychiatric Medical History: Reports: Hx Bipolar Disorder, Hx Depression, Hx Schizophrenia Denies: Hx Post Traumatic Stress Disorder Traumatic Medical History: Past Surgical History: Reports: Hx Abdominal Surgery - Ex Lap, Hx Appendectomy - Ex Lap, Hx Section, Hx Gynecologic Surgery - hyst, Hx Hysterectomy, Hx Orthopedic Surgery - Right knee arthroplasty 07/29/17, Hx Thyroid Surgery, Hx Tonsillectomy - Immunizations Immunizations up to date: Yes Hx Diphtheria, Pertussis, Tetanus Vaccination: Yes Hx Pneumococcal Vaccination: 12/15/15 Vertical Provider Document - CONSTITUTIONAL Agree With Documented VS: Yes Exam Limitations: No Limitations General Appearance: Mild Distress Notes: PHYSICAL EXAMINATION: GENERAL: Well-appearing, well-nourished and in mild distress. HEAD: Atraumatic, normocephalic. EYES: sclera clear, anicteric, conjunctiva are normal. ENT: nares patent, Moist mucous membranes. NECK: Normal range of motion, supple no lymphadenopathy LUNGS: respirations unlabored HEART: Regular rate and rhythm without murmurs EXTREMITIES: Normal range of motion, no pitting or edema. No cyanosis. Gait normal, pt ambulates without difficulty BACK: Patient with right SI joint tenderness, no lumbar midline tenderness, no deformities or step-offs. No CVA tenderness. NEUROLOGICAL: Cranial nerves grossly intact. Normal speech, normal gait. No saddle anesthesia. No foot drop PSYCH: Normal mood, normal affect. SKIN: Warm, Dry, normal turgor, no rashes or lesions noted. - INFECTION CONTROL TRAVEL OUTSIDE OF THE [place] IN LAST 30 DAYS: No Course - Re-evaluation Re-evalutation: 12/01/17 08:17 Patient appears uncomfortable, controlled substance database reviewed. Patient advised that only a short course of medicine will be given and that she needs to follow-up with her primary doctor tomorrow for recheck. Patient advised of worsening symptoms that she should return immediately for. The patient presents with low back pain without signs of spinal cord compression, cauda equina syndrome, infection, aneurysm, or other serious etiology. The patient is neurologically intact. Given the extremely risk of these diagnoses further testing and evaluation for these possibilities does not appear to be indicated at this time. Patient has been instructed to return if the symptoms worsen or change in any way. - Vital Signs Vital signs: Temp Pulse Resp BP Pulse Ox 98.6 F 107 H 20 153/107 H 98 12/01/17 06:51 12/01/17 06:51 12/01/17 06:51 12/01/17 06:51 12/01/17 06:51 Discharge - Discharge Clinical Impression: Sciatica Qualifiers: Laterality: right Qualified Code(s): M54.31 - Sciatica, right side Condition: Stable Disposition: HOME, SELF-CARE Instructions: Sciatica ([facility]), Ultram ([facility]) Additional Instructions: Return immediately for any new or worsening symptoms Followup with your primary care provider, call tomorrow to make a followup appointment Do not take the tramadol if you are taking your Xanax, do not combine these medications together. Prescriptions: Tramadol HCl [Ultram 50 mg Tablet] 50 mg PO ASDIR PRN #10 tablet PRN Reason: Referrals: YEE LEONARD PA-C [NO LOCAL MD] - Follow up tomorrow
== END 2017-12-01 08:50 | disposition home or self-care (01) ==
LOC: ER 06:44
DX: M54.31 Sciatica, right side (principal); E78.00 Pure hypercholesterolemia, unspecified; I10 Essential (primary) hypertension; Z86.73 Personal history of transient ischemic attack (TIA), and cerebral infarction without residual deficits; Z90.710 Acquired absence of both cervix and uterus
CPT/HCPCS: 99283; A9270

== ENCOUNTER 2017-12-07 16:01 | Emergency (ER) | payer MEDICARE, MEDICAID ==
--- NOTE | 2017-12-07 16:19 | ER Document Report ---
ED Neck/Back Problem - General Chief Complaint: Back Pain Stated Complaint: LEG PAIN Time Seen by Provider: 12/07/17 16:50 Mode of Arrival: Ambulatory Information source: Patient Notes: 61-year-old female presented to ED for complaint of low back and right leg pain. She also has right knee pain. She is alert and oriented respirations regular and unlabored. She states this is her normal pain in her knee pain is because she had physical therapy today. TRAVEL OUTSIDE OF THE [place] IN LAST 30 DAYS: No - HPI Patient complains to provider of: Pain, Injury Onset: Other - chronic Onset: Chronic Timing: Still present Quality of pain: Sharp Severity: Moderate Pain Level: 3 Recent injury: No Associated symptoms: Like prior neck/back pain, Radiation to leg, Lower back pain, Other - chronic pain to right leg and back. denies: Motor loss, Numbness/ tingling Exacerbated by: Sitting position Relieved by: Nothing Similar symptoms previously: Yes Recently seen / treated by doctor: Yes - Related Data Allergies/Adverse Reactions: hydrocodone [Hydrocodone] Allergy (Severe, Verified 12/07/17 16:02) sertraline HCl [From Zoloft] Allergy (Severe, Verified 12/07/17 16:02) hives, resp arrest propranolol HCl [From Inderal] Allergy (Intermediate, Verified 12/07/17 16:02) Hives ondansetron Allergy (Unknown, Verified 12/07/17 16:02) lamotrigine [From Lamictal] Allergy (Verified 12/07/17 16:02) propranolol Allergy (Verified 12/07/17 16:02) Past Medical History - General Information source: Patient - Social History Smoking Status: Never Smoker Cigarette use (# per day): No Chew tobacco use (# tins/day): No Smoking Education Provided: No Frequency of alcohol use: None Drug Abuse: None Lives with: Family Family History: Arthritis, CVA, Hyperlipidemia, Hypertension, Malignancy, Other - Thyroid cancer Patient has suicidal ideation: No Patient has homicidal ideation: No - Past Medical History Cardiac Medical History: Reports: Hx Hypercholesterolemia, Hx Hypertension Pulmonary Medical History: Reports: Hx Asthma EENT Medical History: Reports: None Neurological Medical History: Reports: Hx Cerebrovascular Accident, Hx Migraine Endocrine Medical History: Reports: Hx Diabetes Mellitus Type 2 - borderline diet controlled, Hx Hypothyroidism - Thyroid removed Renal/ Medical History: Reports: Hx Kidney Stones, Hx Ovarian Cysts Malignancy Medical History: Reports: None GI Medical History: Reports: Hx Gastroesophageal Reflux Disease, Hx Irritable Bowel Musculoskeletal Medical History: Reports Hx Arthritis, Reports Hx Musculoskeletal Deformity, Reports Hx Musculoskeletal Trauma Skin Medical History: Reports None Psychiatric Medical History: Reports: Hx Bipolar Disorder, Hx Depression, Hx Schizophrenia Traumatic Medical History: Reports: None Infectious Medical History: Reports: None Past Surgical History: Reports: Hx Abdominal Surgery - Ex Lap, Hx Appendectomy - Ex Lap, Hx Section, Hx Gynecologic Surgery - hyst, Hx Hysterectomy, Hx Orthopedic Surgery - Right knee arthroplasty 07/29/17, Hx Thyroid Surgery, Hx Tonsillectomy - Immunizations Immunizations up to date: Yes Hx Diphtheria, Pertussis, Tetanus Vaccination: Yes Hx Pneumococcal Vaccination: 12/15/15 Review of Systems - Review of Systems Constitutional: No symptoms reported EENT: No symptoms reported Cardiovascular: No symptoms reported Respiratory: No symptoms reported Gastrointestinal: No symptoms reported Genitourinary: No symptoms reported Female Genitourinary: No symptoms reported Musculoskeletal: Back pain, Other - down right leg and swelling to right knee after therapy Skin: No symptoms reported Hematologic/Lymphatic: No symptoms reported Neurological/Psychological: No symptoms reported -: Yes All other systems reviewed and negative Physical Exam - Vital signs Vitals: Temp Pulse Resp BP Pulse Ox 99.7 F 129 H 20 151/95 H 99 12/07/17 16:23 12/07/17 16:23 12/07/17 16:23 12/07/17 16:23 12/07/17 16:23 Interpretation: Normal - General General appearance: Appears well, Alert - HEENT Head: Normocephalic, Atraumatic Eyes: Normal Pupils: PERRL - Respiratory Respiratory status: No respiratory distress Chest status: Nontender Breath sounds: Normal Chest palpation: Normal - Cardiovascular Rhythm: Regular Heart sounds: Normal auscultation Murmur: No - Abdominal Inspection: Normal Distension: No distension Bowel sounds: Normal Tenderness: Nontender Organomegaly: No organomegaly - Back Back: Normal, Tender - Tender to right lower back across the right buttocks - Extremities General upper extremity: Normal inspection, Nontender, Normal color, Normal ROM , Normal temperature General lower extremity: Normal ROM, Normal temperature, Normal weight bearing. No: Juliana's sign Knee: Tender, Ecchymosis, Pain with ROM, Patellar tendon intact, Tender joint line. No: Popliteal fossa tender, Unable to bear weight - Neurological Neuro grossly intact: Yes Cognition: Normal Orientation: AAOx4 Vicky Coma Scale Eye Opening: Spontaneous [place] Coma Scale Verbal: Oriented [place] Coma Scale Motor: Obeys Commands [place] Coma Scale Total: 15 Speech: Normal Motor strength normal: LUE, RUE, LLE, RLE Sensory: Normal - Psychological Associated symptoms: Normal affect, Normal mood - Skin Skin Temperature: Warm Skin Moisture: Dry Skin Color: Normal Course - Re-evaluation Re-evalutation: 12/07/17 23:54 Patient was given Toradol for her pain. Patient was instructed to take her vomiting when she got home her blood pressure and pulse. Patient states she knows that is not because she needs to take her medication. - Vital Signs Vital signs: Temp Pulse Resp BP Pulse Ox 99.7 F 115 H 20 151/95 H 99 12/07/17 16:23 12/07/17 16:34 12/07/17 16:23 12/07/17 16:34 12/07/17 16:23 Discharge - Discharge Clinical Impression: Right leg pain Low back pain Qualifiers: Chronicity: chronic Back pain laterality: bilateral Sciatica presence: with sciatica Sciatica laterality: sciatica of right side Qualified Code(s): M54.41 - Lumbago with sciatica, right side Condition: Stable Disposition: HOME, SELF-CARE Additional Instructions: LOW BACK PAIN: Three out of every four people will have an episode of disabling back pain during their lifetime. Most commonly the pain is due to straining of the muscles and ligaments in the low back. Usual treatment includes: (1) Rest on a firm surface. Avoid lying on your stomach. (2) Ice pack the painful area. After a few days, gentle heat may be used intermittently to relax the area, or ice packs can be continued. (3) Medication may be needed -- muscle relaxers and antiinflammatory medicines are commonly used. (4) As the back improves, exercises are prescribed to strengthen the back and abdominal muscles. Your doctor will advise you on the proper care for your back at each stage in your recovery. You may be better in a few days -- or healing may take several weeks. If new symptoms of a "herniated disc" (radiation of pain, numbness, or tingling down the back of the leg or weakness in the leg) occur, you should be re-examined. Further testing may be necessary. Toradol Injection You have been given an injection of ketorolac tromethamine (Toradol). This is an excellent, safe drug for pain control. It also has potent antiinflammatory action. You should have significant pain relief within about one hour. Toradol is not addicting and is non-sedating. It does not interfere with driving or work. Call or return if you develop itching, hives, shortness of breath, or rash. ICE PACKS: Apply ice packs frequently against the painful area. Many different schedules are recommended, such as "20 minutes on, 20 minutes off" or "one hour ice, two hours rest." If you need to work, you may need to go longer between ice treatments. You should plan to have the area ice packed AT LEAST one fourth of the time. The ice should be applied over the wrap, tape, or splint, or over a layer of cloth -- not directly against the skin. Some ice bags have a built-in cloth and can be put directly on the skin. WARM PACKS: After approximately two days, apply gentle heat (such as a heating pad or hot water bottle) for about 20 to 30 minutes about every two hours -- at least four times daily. Warmth and elevation will help you make a more rapid recovery , and will ease the pain considerably. Do not use HOT heat, and never apply heat for longer than 30 minutes. The continuous heat can invisibly damage skin and muscles -- even when no burn is seen on the surface. Damaged muscles can make you MORE sore. Stretching Exercises for the Back The physician has recommended that you begin stretching exercises for your back. These are often used even while the back is painful. However, you should notify the physician if the activities seem to increase your pain. PELVIC TILT: Lie flat on your back with knees bent. Tighten your stomach and buttock muscles so it flattens your lower back against the floor. Hold 10 seconds. Repeat 10 times, twice daily. KNEE RAISE: Lying on the back with knees bent, raise one knee to your chest, then the other. Hold both knees against the chest 10 seconds, then lower one knee at a time. Repeat 10 times, twice daily. PARTIAL TRUNK RAISE: Lie face down, arms at your sides. Keeping your waist on the floor, use your arms raise your chest up. Support yourself on your elbows for 30 seconds. Repeat twice daily, increasing the time to two minutes as you recover. FOLLOW-UP CARE: If you have been referred to a physician for follow-up care, call the physician s office for an appointment as you were instructed or within the next two days. If you experience worsening or a significant change in your symptoms, notify the physician immediately or return to the Emergency Department at any time for re-evaluation. Forms: Elevated Blood Pressure
[2017-12-07 16:28] VITALS: BP 151/95
[2017-12-07] MEDS ORDERED: KETOROLAC TROMETHAMINE INJ/PF 30 MG/1 ML SDV IM ONE (16:52)
== END 2017-12-07 17:08 | disposition home or self-care (01) ==
LOC: ER 16:01
DX: M54.41 Lumbago with sciatica, right side (principal); M79.604 Pain in right leg; E78.00 Pure hypercholesterolemia, unspecified; I10 Essential (primary) hypertension; E11.9 Type 2 diabetes mellitus without complications; Z88.6 Allergy status to analgesic agent; Z86.73 Personal history of transient ischemic attack (TIA), and cerebral infarction without residual deficits; Z87.442 Personal history of urinary calculi; Z90.710 Acquired absence of both cervix and uterus
CPT/HCPCS: 99283; 96372; J1885

== ENCOUNTER 2017-12-08 03:43 | Emergency (ER) | payer MEDICARE, MEDICAID ==
[2017-12-08 04:00] VITALS: BP 126/92
[2017-12-08] MEDS ORDERED: TRAMADOL HCL 50 MG TABLET PO ONE (04:16)
--- NOTE | 2017-12-08 04:17 | ER Document Report ---
ED General - General Mode of Arrival: Ambulatory Information source: Patient TRAVEL OUTSIDE OF THE [place] IN LAST 30 DAYS: No <SVETLANA GARRETT - Last Filed: 12/08/17 04:23> <CHRISTINE SHARMA - Last Filed: 12/08/17 05:15> - General Chief Complaint: Leg Pain Stated Complaint: HIP PAIN Time Seen by Provider: 12/08/17 04:06 Notes: Patient is a 61 year old female that presents to the emergency department today with complaints of right sciatica pain. Patient has an extensive history of sciatica and she is here for "pain relief". Patient states this is exactly like her previous sciatica flare ups. (SVETLANA GARRETT) - Related Data Allergies/Adverse Reactions: hydrocodone [Hydrocodone] Allergy (Severe, Verified 12/07/17 16:02) sertraline HCl [From Zoloft] Allergy (Severe, Verified 12/07/17 16:02) hives, resp arrest propranolol HCl [From Inderal] Allergy (Intermediate, Verified 12/07/17 16:02) Hives ondansetron Allergy (Unknown, Verified 12/07/17 16:02) lamotrigine [From Lamictal] Allergy (Verified 12/07/17 16:02) propranolol Allergy (Verified 12/07/17 16:02) Past Medical History - General Information source: Patient - Social History Smoking Status: Never Smoker Cigarette use (# per day): No Frequency of alcohol use: None Drug Abuse: None Lives with: Family Family History: Reviewed & Not Pertinent, Arthritis, CVA, Hyperlipidemia, Hypertension, Malignancy, Other - Thyroid cancer - Past Medical History Cardiac Medical History: Reports: Hx Hypercholesterolemia, Hx Hypertension Pulmonary Medical History: Reports: Hx Asthma Neurological Medical History: Reports: Hx Cerebrovascular Accident, Hx Migraine Endocrine Medical History: Reports: Hx Diabetes Mellitus Type 2 - borderline diet controlled, Hx Hypothyroidism - Thyroid removed Renal/ Medical History: Reports: Hx Kidney Stones, Hx Ovarian Cysts Malignancy Medical History: GI Medical History: Reports: Hx Gastroesophageal Reflux Disease, Hx Irritable Bowel Musculoskeletal Medical History: Reports Hx Arthritis, Reports Hx Musculoskeletal Deformity, Reports Hx Musculoskeletal Trauma Psychiatric Medical History: Reports: Hx Bipolar Disorder, Hx Depression, Hx Schizophrenia Traumatic Medical History: Past Surgical History: Reports: Hx Abdominal Surgery - Ex Lap, Hx Appendectomy - Ex Lap, Hx Section, Hx Gynecologic Surgery - hyst, Hx Hysterectomy, Hx Orthopedic Surgery - Right knee arthroplasty 07/29/17, Hx Thyroid Surgery, Hx Tonsillectomy - Immunizations Immunizations up to date: Yes Hx Diphtheria, Pertussis, Tetanus Vaccination: Yes Hx Pneumococcal Vaccination: 12/15/15 <GERRYSVETLANA - Last Filed: 12/08/17 04:23> Review of Systems - Review of Systems Constitutional: No symptoms reported EENT: No symptoms reported Cardiovascular: No symptoms reported Respiratory: No symptoms reported Gastrointestinal: No symptoms reported Genitourinary: No symptoms reported Female Genitourinary: No symptoms reported Musculoskeletal: See HPI, Back pain - sciatica Skin: No symptoms reported Hematologic/Lymphatic: No symptoms reported Neurological/Psychological: No symptoms reported -: Yes All other systems reviewed and negative <GERRYMARASVETLANA - Last Filed: 12/08/17 04:23> Physical Exam <GERRYSVETLANA - Last Filed: 12/08/17 04:23> - Vital signs Interpretation: Normal - General General appearance: Appears well, Alert - HEENT Head: Normocephalic, Atraumatic Eyes: Normal Pupils: PERRL - Respiratory Respiratory status: No respiratory distress Chest status: Nontender Breath sounds: Normal Chest palpation: Normal - Cardiovascular Rhythm: Regular Heart sounds: Normal auscultation Murmur: No - Abdominal Inspection: Normal Distension: No distension Bowel sounds: Normal Tenderness: Nontender Organomegaly: No organomegaly - Back Back: Normal, Nontender - Extremities General upper extremity: Normal inspection, Nontender, Normal color, Normal ROM , Normal temperature General lower extremity: Normal inspection, Tender, Normal color, Normal ROM, Normal temperature, Normal weight bearing. No: Juliana's sign - Neurological Neuro grossly intact: Yes Cognition: Normal Orientation: AAOx4 Vicky Coma Scale Eye Opening: Spontaneous [place] Coma Scale Verbal: Oriented [place] Coma Scale Motor: Obeys Commands [place] Coma Scale Total: 15 Speech: Normal Motor strength normal: LUE, RUE, LLE, RLE Sensory: Normal - Psychological Associated symptoms: Normal affect, Normal mood - Skin Skin Temperature: Warm Skin Moisture: Dry Skin Color: Normal <CHRISTINE SHARMA - Last Filed: 12/08/17 05:15> - Vital signs Vitals: Temp Pulse Resp BP Pulse Ox 98.7 F 82 17 126/92 H 98 08/26/18 03:54 12/08/17 03:54 12/08/17 03:54 12/08/17 03:54 12/08/17 03:54 - Extremities Notes: TTP R buttock (CHRISTINE SHARMA) Course <SVETLANA GARRETT - Last Filed: 12/08/17 04:23> <CHRISTINE SHARMA - Last Filed: 12/08/17 05:15> - Re-evaluation Re-evalutation: 12/08/17 05:14 Patient is a 61-year-old female with a history of sciatica who comes in complaining of right buttock pain similar to sciatica in the past. She is requesting a Medrol Dosepak. She is seeing a new doctor on December 14 it would like some tramadol which is relieved her pain in the past. No neurovascular deficits. No bladder or bowel incontinence. Patient will be discharged home and is to follow-up with her doctor December 14 as scheduled. Stable for discharge. Grateful for care. (CHRISTINE SHARMA) - Vital Signs Vital signs: Temp Pulse Resp BP Pulse Ox 98.7 F 82 17 126/92 H 98 12/08/17 03:54 12/08/17 03:54 12/08/17 03:54 12/08/17 03:54 12/08/17 03:54 Discharge <SVETLANA GARRETT - Last Filed: 12/08/17 04:23> <CHRISTINE SHRAMA - Last Filed: 12/08/17 05:15> - Discharge Clinical Impression: Sciatica Qualifiers: Laterality: right Qualified Code(s): M54.31 - Sciatica, right side Condition: Stable Disposition: HOME, SELF-CARE Instructions: Sciatica (OM) Additional Instructions: Please follow-up with your doctor soon as you are able. Prescriptions: Methylprednisolone [Medrol Dosepack (4 mg/Tab) 21 Tab/Dosepak] 4 mg PO ASDIR PRN #21 [id number] PRN Reason: Tramadol HCl 50 mg PO BIDP PRN #10 tablet PRN Reason: Referrals: CARLOS VILLALOBOS MD [ACTIVE STAFF] - Follow up as needed Scribe Attestation: 12/08/17 05:15 I personally performed the services described in the documentation, reviewed and edited the documentation which was dictated to the scribe in my presence, and it accurately records my words and actions. (CHRISTINE SHARMA) Scribe Documentation - Scribe Written by Scribe:: Michelle Jones, 12/08/2017 0434 acting as scribe for :: Noemí <SVETLANA GARRETT - Last Filed: 12/08/17 04:23>
== END 2017-12-08 04:40 | disposition home or self-care (01) ==
LOC: ER 03:43
DX: M54.31 Sciatica, right side (principal); I10 Essential (primary) hypertension; J45.909 Unspecified asthma, uncomplicated; Z88.5 Allergy status to narcotic agent; Z88.8 Allergy status to other drugs, medicaments and biological substances
CPT/HCPCS: 99283; A9270

== ENCOUNTER 2017-12-12 03:07 | Emergency (ER) | payer MEDICARE, MEDICAID ==
[2017-12-12 03:13] VITALS: BP 143/84
== END 2017-12-12 04:47 | disposition left against medical advice (07) ==
LOC: ER 03:07
DX: Z53.21 Procedure and treatment not carried out due to patient leaving prior to being seen by health care provider (principal)

== ENCOUNTER 2017-12-18 10:21 | Emergency (ER) | payer MEDICARE, MEDICAID ==
[2017-12-18 10:33] VITALS: BP 142/93
[2017-12-18] MEDS ORDERED: KETOROLAC TROMETHAMINE 60 MG/2 ML SDV IM ONE (11:10)
[2017-12-18] MEDS ORDERED: FAMOTIDINE 20 MG TABLET PO ONE (11:10)
--- NOTE | 2017-12-18 11:16 | ER Document Report ---
ED Neck/Back Problem - General Chief Complaint: Back Pain Stated Complaint: BACK LEG PAIN Time Seen by Provider: 12/18/17 11:04 Mode of Arrival: Ambulatory Information source: Patient Notes: 61-year-old female presents to ED for complaint of low back pain radiating down her right leg. This is her usual complaint and she comes in frequently for the same complaint. She states she just recently saw her primary care doctor and she has her knee surgery scheduled for January 02. She has an appointment with Dr. Botello first January 13. She states she cannot take ibuprofen for her pain because it upsets her stomach and she would like something to settle her stomach when she takes ibuprofen. TRAVEL OUTSIDE OF THE [place] IN LAST 30 DAYS: No - HPI Patient complains to provider of: Pain, Lower back Onset: Other - chronic Where: Home Onset: Chronic Timing: Still present Quality of pain: Burning, Sharp Severity: Severe Pain Level: 5 Recent injury: No Associated symptoms: Lower back pain Exacerbated by: Nothing Relieved by: Nothing Similar symptoms previously: Yes Recently seen / treated by doctor: Yes - Related Data Allergies/Adverse Reactions: hydrocodone [Hydrocodone] Allergy (Severe, Verified 12/18/17 10:23) sertraline HCl [From Zoloft] Allergy (Severe, Verified 12/18/17 10:23) hives, resp arrest propranolol HCl [From Inderal] Allergy (Intermediate, Verified 12/18/17 10:23) Hives ondansetron Allergy (Unknown, Verified 12/18/17 10:23) lamotrigine [From Lamictal] Allergy (Verified 12/18/17 10:23) propranolol Allergy (Verified 12/18/17 10:23) Past Medical History - General Information source: Patient - Social History Smoking Status: Unknown if Ever Smoked Cigarette use (# per day): No Chew tobacco use (# tins/day): No Smoking Education Provided: No Frequency of alcohol use: None Drug Abuse: None Lives with: Family Family History: Reviewed & Not Pertinent, Arthritis, CVA, Hyperlipidemia, Hypertension, Malignancy, Other - Thyroid cancer Patient has suicidal ideation: No Patient has homicidal ideation: No - Past Medical History Cardiac Medical History: Reports: Hx Hypercholesterolemia, Hx Hypertension Pulmonary Medical History: Reports: Hx Asthma EENT Medical History: Reports: None Neurological Medical History: Reports: Hx Cerebrovascular Accident, Hx Migraine Endocrine Medical History: Reports: Hx Diabetes Mellitus Type 2 - borderline diet controlled, Hx Hypothyroidism - Thyroid removed Renal/ Medical History: Reports: Hx Kidney Stones, Hx Ovarian Cysts Malignancy Medical History: Reports: None GI Medical History: Reports: Hx Gastroesophageal Reflux Disease, Hx Irritable Bowel Musculoskeletal Medical History: Reports Hx Arthritis, Reports Hx Musculoskeletal Deformity, Reports Hx Musculoskeletal Trauma Skin Medical History: Reports None Psychiatric Medical History: Reports: Hx Bipolar Disorder, Hx Depression, Hx Schizophrenia Traumatic Medical History: Reports: None Infectious Medical History: Reports: None Past Surgical History: Reports: Hx Abdominal Surgery - Ex Lap, Hx Appendectomy - Ex Lap, Hx Section, Hx Gynecologic Surgery - hyst, Hx Hysterectomy, Hx Orthopedic Surgery - Right knee arthroplasty 07/29/17, Hx Thyroid Surgery, Hx Tonsillectomy - Immunizations Immunizations up to date: Yes Hx Diphtheria, Pertussis, Tetanus Vaccination: Yes Hx Pneumococcal Vaccination: 12/15/15 Review of Systems - Review of Systems Constitutional: No symptoms reported EENT: No symptoms reported Cardiovascular: No symptoms reported Respiratory: No symptoms reported Gastrointestinal: No symptoms reported Genitourinary: No symptoms reported Female Genitourinary: No symptoms reported Musculoskeletal: Back pain - This is very chronic pain. She is in the ED very frequently for the same pain. States ibuprofen upsets her stomach and she just wants a Toradol shot. There is no pain anywhere except for the back and the knee today Skin: No symptoms reported Hematologic/Lymphatic: No symptoms reported Neurological/Psychological: No symptoms reported -: Yes All other systems reviewed and negative Physical Exam - Vital signs Vitals: Temp Pulse Resp BP Pulse Ox 98.5 F 85 16 142/93 H 100 12/18/17 10:28 12/18/17 10:28 12/18/17 10:28 12/18/17 10:28 12/18/17 10:28 Interpretation: Normal - General General appearance: Appears well, Alert - HEENT Head: Normocephalic, Atraumatic Eyes: Normal Pupils: PERRL - Respiratory Respiratory status: No respiratory distress Chest status: Nontender Breath sounds: Normal Chest palpation: Normal - Cardiovascular Rhythm: Regular Heart sounds: Normal auscultation Murmur: No - Abdominal Inspection: Normal Distension: No distension Bowel sounds: Normal Tenderness: Nontender Organomegaly: No organomegaly - Back Back: Normal, Tender. No: Deformity/step-off, CVA tenderness, Vertebra tenderness, Scars, Scoliosis, Wounds - Extremities General upper extremity: Normal inspection, Nontender, Normal color, Normal ROM , Normal temperature General lower extremity: Normal inspection, Nontender, Normal color, Normal ROM , Normal temperature, Normal weight bearing. No: Juliana's sign - Neurological Neuro grossly intact: Yes Cognition: Normal Orientation: AAOx4 [place] Coma Scale Eye Opening: Spontaneous [place] Coma Scale Verbal: Oriented Vicky Coma Scale Motor: Obeys Commands Vicky Coma Scale Total: 15 Speech: Normal Motor strength normal: LUE, RUE, LLE, RLE Sensory: Normal - Psychological Associated symptoms: Normal affect, Normal mood - Skin Skin Temperature: Warm Skin Moisture: Dry Skin Color: Normal Course - Re-evaluation Re-evalutation: 12/18/17 14:08 Patient was treated with Toradol for her low back pain with sciatica down the right leg. After performing a Medical Screening Examination, I estimate there is LOW risk for EXPANDING OR RUPTURED ABDOMINAL AORTIC ANEURYSM, CAUDA EQUINA SYNDROME, EPIDURAL MASS LESION, or HERNIATED DISK CAUSING SEVERE SPINAL STENOSIS , thus I consider the discharge disposition reasonable. I have reevaluated this patient multiple times and no significant life threatening changes are noted. The patient and I have discussed the diagnosis and risks, and we agree with discharging home and close follow-up. We also discussed returning to the Emergency Department immediately if new or worsening symptoms occur with the understanding that symptoms and presentations can change. We have discussed the symptoms which are most concerning (e.g., saddle anesthesia, urinary or bowel incontinence or retention, changing or worsening pain) that necessitate immediate return. - Vital Signs Vital signs: Temp Pulse Resp BP Pulse Ox 98.5 F 85 16 142/93 H 100 12/18/17 10:28 12/18/17 10:28 12/18/17 10:28 12/18/17 10:28 12/18/17 10:28 Discharge - Discharge Clinical Impression: Low back pain Qualifiers: Chronicity: acute Back pain laterality: bilateral Sciatica presence: with sciatica Sciatica laterality: sciatica of right side Qualified Code(s): M54.41 - Lumbago with sciatica, right side Condition: Stable Disposition: HOME, SELF-CARE Additional Instructions: LOW BACK PAIN: Three out of every four people will have an episode of disabling back pain during their lifetime. Most commonly the pain is due to straining of the muscles and ligaments in the low back. Usual treatment includes: (1) Rest on a firm surface. Avoid lying on your stomach. (2) Ice pack the painful area. After a few days, gentle heat may be used intermittently to relax the area, or ice packs can be continued. (3) Medication may be needed -- muscle relaxers and antiinflammatory medicines are commonly used. (4) As the back improves, exercises are prescribed to strengthen the back and abdominal muscles. Your doctor will advise you on the proper care for your back at each stage in your recovery. You may be better in a few days -- or healing may take several weeks. If new symptoms of a "herniated disc" (radiation of pain, numbness, or tingling down the back of the leg or weakness in the leg) occur, you should be re-examined. Further testing may be necessary. Sciatica Your symptoms suggest "sciatica." The pain of sciatica typically radiates down the leg. Numbness in the foot or calf may also occur. Sciatica is caused by irritation of the sciatic nerve or its branches. The irritation can be due to a herniated disk in the spine, swelling and inflammation in the muscles surrounding the sciatic nerve, or direct injury of the nerve itself. Most cases of sciatica will resolve with medical treatment. Bed rest is usually recommended initially. Surgery is only necessary when the condition will not improve with rest and antiinflammatory medication. Muscle relaxers are often given if muscle soreness is present. A CAT scan of the back may be performed if a herniated disk is suspected. Re-examination is necessary if you develop increasing numbness, localized weakness in the foot or ankle, or if the pain does not respond to rest. Acid-Suppressing Medication You have a prescription for medicine which reduces the stomach's secretion of acid. Examples include Zantac, Tagament, and Pepcid. These drugs are often used to allow healing of ulcers or esophagitis. They may be needed to prevent recurrence of ulcers in some patients, or to prevent damage from acid reflux in the esophagus. Take all medication as prescribed, even after the pain is gone. Regular antacids may be added as needed if you have symptoms while taking this medicine. These medications sometimes are prescribed for allergic reactions because they have anti-histaminic effects and relieve the rash and itching of the reaction. There are usually no side effects from this medication. But, in rare cases and particularly in the elderly, serious problems can occur. Contact your doctor if there is fever, rash, hallucinations, confusion, or unusual bruising. Contact your doctor at once if you develop lightheadedness, black or bloody stool, or bloody vomitus. ICE PACKS: Apply ice packs frequently against the painful area. Many different schedules are recommended, such as "20 minutes on, 20 minutes off" or "one hour ice, two hours rest." If you need to work, you may need to go longer between ice treatments. You should plan to have the area ice packed AT LEAST one fourth of the time. The ice should be applied over the wrap, tape, or splint, or over a layer of cloth -- not directly against the skin. Some ice bags have a built-in cloth and can be put directly on the skin. WARM PACKS: After approximately two days, apply gentle heat (such as a heating pad or hot water bottle) for about 20 to 30 minutes about every two hours -- at least four times daily. Warmth and elevation will help you make a more rapid recovery , and will ease the pain considerably. Do not use HOT heat, and never apply heat for longer than 30 minutes. The continuous heat can invisibly damage skin and muscles -- even when no burn is seen on the surface. Damaged muscles can make you MORE sore. FOLLOW-UP CARE: If you have been referred to a physician for follow-up care, call the physician s office for an appointment as you were instructed or within the next two days. If you experience worsening or a significant change in your symptoms, notify the physician immediately or return to the Emergency Department at any time for re-evaluation. Prescriptions: Famotidine [Pepcid 20 mg Tablet] 20 mg PO BID #12 tablet Forms: Elevated Blood Pressure Referrals: MARIKA BOTELLO MD [Primary Care Provider] - Follow up as needed
== END 2017-12-18 11:24 | disposition home or self-care (01) ==
LOC: ER 10:21
DX: M54.41 Lumbago with sciatica, right side (principal); G89.29 Other chronic pain; E11.9 Type 2 diabetes mellitus without complications; I10 Essential (primary) hypertension; J45.909 Unspecified asthma, uncomplicated; Z88.5 Allergy status to narcotic agent; Z88.8 Allergy status to other drugs, medicaments and biological substances
CPT/HCPCS: 99283; A9270; J1885

== ENCOUNTER 2017-12-27 19:03 | Emergency (ER) | payer MEDICARE, MEDICAID ==
[2017-12-27] MEDS ORDERED: KETOROLAC TROMETHAMINE INJ/PF 30 MG/1 ML SDV IM ONE (19:34)
[2017-12-27 19:35] VITALS: BP 146/98
--- NOTE | 2017-12-27 19:38 | ER Document Report ---
ED Neck/Back Problem - General Chief Complaint: Back Pain Stated Complaint: BACK PAIN Time Seen by Provider: 12/27/17 19:19 Mode of Arrival: Ambulatory Information source: Patient Notes: 61-year-old female presented ED for complaint of low back pain radiating down her right leg. She assesses her usual back pain that she comes in for. She states that she will be seeing her doctor in about 6 days. She states she has not taken any ibuprofen in the last couple days. She states sometimes it upsets her stomach. On her last visit I did discuss with her ways to settle her stomach if she takes ibuprofen. TRAVEL OUTSIDE OF THE [place] IN LAST 30 DAYS: No - HPI Patient complains to provider of: Lower back Onset: Other - Chronic Onset: Chronic Timing: Still present Quality of pain: Achy, Sharp Severity: Severe Pain Level: 5 Context: Other - Chronic Recent injury: No Associated symptoms: Like prior neck/back pain, Radiation to leg, Lower back pain, Other - Patient also has some scaly redness to the right knee. She states she has been putting different oils and lotions on this. She states she has an appointment for surgery for this in the near future.. denies: Motor loss , Numbness/tingling, Sensory loss, Sweaty, Unable to urinate Exacerbated by: Nothing Relieved by: Nothing Similar symptoms previously: Yes Recently seen / treated by doctor: Yes - Related Data Allergies/Adverse Reactions: hydrocodone [Hydrocodone] Allergy (Severe, Verified 12/18/17 10:23) sertraline HCl [From Zoloft] Allergy (Severe, Verified 12/18/17 10:23) hives, resp arrest propranolol HCl [From Inderal] Allergy (Intermediate, Verified 12/18/17 10:23) Hives ondansetron Allergy (Unknown, Verified 12/18/17 10:23) lamotrigine [From Lamictal] Allergy (Verified 12/18/17 10:23) propranolol Allergy (Verified 12/18/17 10:23) Past Medical History - General Information source: Patient - Social History Smoking Status: Never Smoker Cigarette use (# per day): No Chew tobacco use (# tins/day): No Smoking Education Provided: No Frequency of alcohol use: None Drug Abuse: None Lives with: Family Family History: Reviewed & Not Pertinent, Arthritis, CVA, Hyperlipidemia, Hypertension, Malignancy, Other - Thyroid cancer Patient has suicidal ideation: No Patient has homicidal ideation: No - Past Medical History Cardiac Medical History: Reports: Hx Hypercholesterolemia, Hx Hypertension Pulmonary Medical History: Reports: Hx Asthma EENT Medical History: Reports: None Neurological Medical History: Reports: Hx Cerebrovascular Accident, Hx Migraine Endocrine Medical History: Reports: Hx Diabetes Mellitus Type 2 - borderline diet controlled, Hx Hypothyroidism - Thyroid removed Renal/ Medical History: Reports: Hx Kidney Stones, Hx Ovarian Cysts Malignancy Medical History: Reports: None GI Medical History: Reports: None, Hx Gastroesophageal Reflux Disease, Hx Irritable Bowel Musculoskeletal Medical History: Reports Hx Arthritis, Reports Hx Musculoskeletal Deformity, Reports Hx Musculoskeletal Trauma Skin Medical History: Reports None Psychiatric Medical History: Reports: Hx Bipolar Disorder, Hx Depression, Hx Schizophrenia Traumatic Medical History: Past Surgical History: Reports: Hx Abdominal Surgery - Ex Lap, Hx Appendectomy - Ex Lap, Hx Section, Hx Gynecologic Surgery - hyst, Hx Hysterectomy, Hx Orthopedic Surgery - Right knee arthroplasty 07/29/17, Hx Thyroid Surgery, Hx Tonsillectomy - Immunizations Immunizations up to date: Yes Hx Diphtheria, Pertussis, Tetanus Vaccination: Yes Hx Pneumococcal Vaccination: 12/15/15 Review of Systems - Review of Systems Constitutional: No symptoms reported EENT: No symptoms reported Cardiovascular: No symptoms reported Respiratory: No symptoms reported Gastrointestinal: No symptoms reported Genitourinary: No symptoms reported Female Genitourinary: No symptoms reported Musculoskeletal: Back pain, Muscle pain, Muscle stiffness, Other - Redness and rash to the right knee due to her lotions and all she has been applying. She has been instructed to stop the lotions and oils to clean it good with soap and water. Skin: No symptoms reported Hematologic/Lymphatic: No symptoms reported Neurological/Psychological: No symptoms reported -: Yes All other systems reviewed and negative Physical Exam - Vital signs Vitals: Temp Pulse Resp BP Pulse Ox 98.4 F 104 H 18 136/107 H 95 12/27/17 19:12/27/17 19:12/27/17 19:12/27/17 19:12/27/17 19:09 Interpretation: Normal - General General appearance: Appears well, Alert - HEENT Head: Normocephalic, Atraumatic Eyes: Normal Pupils: PERRL - Respiratory Respiratory status: No respiratory distress Chest status: Nontender Breath sounds: Normal Chest palpation: Normal - Cardiovascular Rhythm: Regular Heart sounds: Normal auscultation Murmur: No - Abdominal Inspection: Normal Distension: No distension Bowel sounds: Normal Tenderness: Nontender Organomegaly: No organomegaly - Back Back: Normal, Tender, Vertebra tenderness. No: Deformity/step-off, CVA tenderness, Scars, Scoliosis, Wounds Notes: No signs or symptoms of cauda equina. This is her normal chronic pain. She is alert and oriented respirations regular and unlabored pupils equal and react to light speaking in full sentences and walks with a even steady gait. She states she just wants her Toradol as she gets when her pain feels like this. Know she cannot get the steroids today but she would like to Toradol injections. Patient was treated with 30 mg of Toradol IM instructed to please follow-up with her primary doctor as soon as the stone passes. Patient verbalized understanding and agreement with treatment plan. - Extremities General upper extremity: Normal inspection, Nontender, Normal color, Normal ROM , Normal temperature General lower extremity: Normal inspection, Nontender, Normal color, Normal ROM , Normal temperature, Normal weight bearing. No: Juliana's sign - Neurological Neuro grossly intact: Yes Cognition: Normal Orientation: AAOx4 [place] Coma Scale Eye Opening: Spontaneous [place] Coma Scale Verbal: Oriented Vicky Coma Scale Motor: Obeys Commands [place] Coma Scale Total: 15 Speech: Normal Motor strength normal: LUE, RUE, LLE, RLE Sensory: Normal - Psychological Associated symptoms: Normal affect, Normal mood - Skin Skin Temperature: Warm Skin Moisture: Dry Skin Color: Normal Course - Vital Signs Vital signs: Temp Pulse Resp BP Pulse Ox 98.4 F 104 H 18 146/98 H 95 12/27/17 19:09 12/27/17 19:09 12/27/17 19:09 12/27/17 19:34 12/27/17 19:09 Discharge - Discharge Clinical Impression: Chronic back pain greater than 3 months duration Condition: Stable Disposition: HOME, SELF-CARE Additional Instructions: Chronic Back Pain Chronic back pain (pain persisting longer than three months) is a common problem. A medical evaluation can look for herniated disc, arthritis, osteoporosis, tumors, and infections. But at least half the time, there's no obvious treatable cause. Anxiety and depression tend to worsen back pain. Ibuprofen or other anti-inflammatory medicine can help. A heating pad, used for 15-20 minutes at a time, can ease pain. For this type of back pain, narcotic medicines should be avoided. Muscle relaxers are rarely helpful unless you're having spasms. Activity is important. Find an aerobic exercise program that your back can tolerate. Too much rest makes back pain worse. Specific back exercises are usually prescribed to strengthen the back and abdominal muscles. Often, a physical therapist can help. Avoid heavy lifting, working while bent over, or standing with both knees straight. Most back pain patients do better with a firm mattress. If new symptoms of a "herniated disc" (radiation of pain, numbness, or tingling down the back of the leg or weakness in the leg) occur, you should be re-examined. Toradol Injection You have been given an injection of ketorolac tromethamine (Toradol). This is an excellent, safe drug for pain control. It also has potent antiinflammatory action. You should have significant pain relief within about one hour. Toradol is not addicting and is non-sedating. It does not interfere with driving or work. Call or return if you develop itching, hives, shortness of breath, or rash. ICE PACKS: Apply ice packs frequently against the painful area. Many different schedules are recommended, such as "20 minutes on, 20 minutes off" or "one hour ice, two hours rest." If you need to work, you may need to go longer between ice treatments. You should plan to have the area ice packed AT LEAST one fourth of the time. The ice should be applied over the wrap, tape, or splint, or over a layer of cloth -- not directly against the skin. Some ice bags have a built-in cloth and can be put directly on the skin. WARM PACKS: After approximately two days, apply gentle heat (such as a heating pad or hot water bottle) for about 20 to 30 minutes about every two hours -- at least four times daily. Warmth and elevation will help you make a more rapid recovery , and will ease the pain considerably. Do not use HOT heat, and never apply heat for longer than 30 minutes. The continuous heat can invisibly damage skin and muscles -- even when no burn is seen on the surface. Damaged muscles can make you MORE sore. Stretching Exercises for the Back The physician has recommended that you begin stretching exercises for your back. These are often used even while the back is painful. However, you should notify the physician if the activities seem to increase your pain. PELVIC TILT: Lie flat on your back with knees bent. Tighten your stomach and buttock muscles so it flattens your lower back against the floor. Hold 10 seconds. Repeat 10 times, twice daily. KNEE RAISE: Lying on the back with knees bent, raise one knee to your chest, then the other. Hold both knees against the chest 10 seconds, then lower one knee at a time. Repeat 10 times, twice daily. PARTIAL TRUNK RAISE: Lie face down, arms at your sides. Keeping your waist on the floor, use your arms raise your chest up. Support yourself on your elbows for 30 seconds. Repeat twice daily, increasing the time to two minutes as you recover. FOLLOW-UP CARE: If you have been referred to a physician for follow-up care, call the physician s office for an appointment as you were instructed or within the next two days. If you experience worsening or a significant change in your symptoms, notify the physician immediately or return to the Emergency Department at any time for re-evaluation. Forms: Elevated Blood Pressure Referrals: MARIKA BOTELLO MD [Primary Care Provider] - Follow up as needed
== END 2017-12-27 19:52 | disposition home or self-care (01) ==
LOC: ER 19:03
DX: G89.29 Other chronic pain (principal); M54.5 Low back pain; R21 Rash and other nonspecific skin eruption; I10 Essential (primary) hypertension; J45.909 Unspecified asthma, uncomplicated; Z88.5 Allergy status to narcotic agent; Z88.8 Allergy status to other drugs, medicaments and biological substances
CPT/HCPCS: 96372; 99283

== ENCOUNTER 2018-01-01 20:29 | Emergency (ER) | payer MEDICARE ==
[2018-01-01] MEDS ORDERED: LORAZEPAM INJ 2 MG/1 ML VIAL IM ONE (20:58)
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
[2018-01-01] MEDS ORDERED: KETOROLAC TROMETHAMINE INJ/PF 30 MG/1 ML SDV IM ONE (21:43)
--- NOTE | 2018-01-01 22:25 | RADIOLOGY REPORT (SQ) ---
EXAM DESCRIPTION: XR KNEE 4 OR MORE VIEWS COMPLETED DATE/TME: 01/01/2018 20:49 CLINICAL HISTORY: 62 years, Female, trauma, swelling COMPARISON: EXAM DESCRIPTION: CLINICAL HISTORY: trauma, swelling COMPARISON: None FINDINGS: 4 view(s) submitted. Prosthetic knee joint appears intact. There is a small knee joint effusion. Alignment is anatomic. No fracture or dislocation is identified. IMPRESSION: No acute fracture or dislocation. NUMBER OF VIEWS: TECHNIQUE: LIMITATIONS: None. FINDINGS: IMPRESSION: 2010 [facility] [employer]- All Rights Reserved
[2018-01-01 23:28] VITALS: BP 110/63
== END 2018-01-01 23:10 | disposition home or self-care (01) ==
LOC: ER 20:29
DX: F41.9 Anxiety disorder, unspecified (principal); M25.561 Pain in right knee
CPT/HCPCS: 99284; 73564; J1885; J2060

== ENCOUNTER 2018-01-03 07:41 | Emergency (ER) | payer MEDICARE, MEDICAID ==
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
[2018-01-03] MEDS ORDERED: KETOROLAC TROMETHAMINE 60 MG/2 ML SDV IM ONE (08:36)
[2018-01-03 09:06] VITALS: BP 165/107
== END 2018-01-03 10:06 | disposition home or self-care (01) ==
LOC: ER 07:41
DX: F41.9 Anxiety disorder, unspecified (principal); M54.31 Sciatica, right side; R00.0 Tachycardia, unspecified; E78.00 Pure hypercholesterolemia, unspecified; I10 Essential (primary) hypertension; Z88.6 Allergy status to analgesic agent; Z86.73 Personal history of transient ischemic attack (TIA), and cerebral infarction without residual deficits; Z87.442 Personal history of urinary calculi; Z90.710 Acquired absence of both cervix and uterus
CPT/HCPCS: 99283; 96372; J1885

== ENCOUNTER 2018-01-22 12:26 | Emergency (ER) | payer MEDICARE, MEDICAID ==
[2018-01-22 12:45] VITALS: BP 136/92
[2018-01-22] MEDS ORDERED: NORMAL SALINE 1000 ML 1,000 ML IV ONE (14:06)
[2018-01-22] MEDS ORDERED: MORPHINE SULFATE 10 MG/ML INJ IV ONE (14:07)
--- NOTE | 2018-01-22 14:10 | ER Document Report ---
ED Medical Screen (RME) - General Chief Complaint: Leg Pain Stated Complaint: LEG PAIN/SWOLLEN Time Seen by Provider: 01/22/18 13:54 TRAVEL OUTSIDE OF THE [place] IN LAST 30 DAYS: No - HPI Patient complains to provider of: Rash Onset: Other - Here is a 62-year-old female that presents for evaluation of redness and swelling in the right lower extremity which started after she had been scratching her leg the redness then began to stand down her leg. She was seen by Dr. Shahida watson to get a new assistant program director but today she began to have redness up around her throat which prompted him to come to the emergency room. No antibiotic use recently no other illnesses recently. - Related Data Allergies/Adverse Reactions: hydrocodone [Hydrocodone] Allergy (Severe, Verified 01/22/18 13:58) sertraline HCl [From Zoloft] Allergy (Severe, Verified 01/22/18 13:58) hives, resp arrest propranolol HCl [From Inderal] Allergy (Intermediate, Verified 01/22/18 13:58) Hives ondansetron Allergy (Unknown, Verified 01/22/18 13:58) lamotrigine [From Lamictal] Allergy (Verified 01/22/18 13:58) propranolol Allergy (Verified 01/22/18 13:58) Past Medical History - Social History Chew tobacco use (# tins/day): No Frequency of alcohol use: Rare Drug Abuse: None Family history: Reviewed & Not Pertinent - Past Medical History Cardiac Medical History: Reports: Hx Hypercholesterolemia, Hx Hypertension Pulmonary Medical History: Reports: Hx Asthma Neurological Medical History: Reports: Hx Cerebrovascular Accident, Hx Migraine Endocrine Medical History: Reports: Hx Hypothyroidism - Thyroid removed. Denies : Hx Graves' Disease, Hx Hyperthyroidism. Comment Only: Hx Diabetes Mellitus Type 2 - borderline diet controlled Renal/ Medical History: Reports: Hx Kidney Stones, Hx Ovarian Cysts. Denies: Hx End Stage Renal Disease, Hx Peritoneal Dialysis, Hx Pelvic Inflammatory Disease Malignancy Medical History: Denies: Hx Breast Cancer, Hx Cervical Cancer, Hx Ovarian Cancer GI Medical History: Reports: Hx Gastroesophageal Reflux Disease, Hx Irritable Bowel Musculoskeltal Medical History: Reports Hx Arthritis, Reports Hx Musculoskeletal Deformity, Reports Hx Musculoskeletal Trauma Psychiatric Medical History: Reports: Hx Bipolar Disorder, Hx Depression, Hx Schizophrenia Denies: Hx Post Traumatic Stress Disorder Traumatic Medical History: Past Surgical History: Reports: Hx Abdominal Surgery - Ex Lap, Hx Section, Hx Gynecologic Surgery - hyst, Hx Hysterectomy, Hx Orthopedic Surgery - Right knee arthroplasty 07/29/17, Hx Thyroid Surgery, Hx TonsillectomyComment Only: Hx Appendectomy - Ex Lap - Immunizations Immunizations up to date: Yes Hx Diphtheria, Pertussis, Tetanus Vaccination: Yes History of Influenza Vaccine for 01/2017 - 06/2017 Season: Yes Influenza Administration Date for 01/2017 - 06/2017 Season: 01/13/17 Physical Exam - Vital signs Vitals: Temp Pulse Resp BP Pulse Ox 99.1 F 88 18 136/92 H 98 01/22/18 12:43 01/22/18 12:43 01/22/18 12:43 01/22/18 12:43 01/22/18 12:43 Course - Re-evaluation Re-evalutation: 01/22/18 14:09 This is a 62-year-old female who has a rash which is both itchy as well as painful in the right lower extremity has now extended to involve the base of her neck. We will initiate workup for potential infectious etiology, will defer antibiotics at this time as this may represent a syndrome such as SJS TEN cellulitis among others. I performed a rapid medical screening examination on this patient will defer further disposition determination workup and labs to next provider. - Vital Signs Vital signs: Temp Pulse Resp BP Pulse Ox 99.1 F 88 18 136/92 H 98 01/22/18 12:43 01/22/18 12:43 01/22/18 12:43 01/22/18 12:43 01/22/18 12:43 Doctor's Discharge - Discharge Referrals: MARIKA BOTELLO MD [Primary Care Provider] - Follow up as needed
[2018-01-22 14:40] LABS: ABSOLUTE BASOPHILS # (AUTO) 0.1 10^3/uL (0.0-0.2); ABSOLUTE EOSINOPHILS # (AUTO) 0.3 10^3/uL (0.0-0.6); ABSOLUTE LYMPHOCYTES (AUTO) 2.4 10^3/uL (0.5-4.7); ABSOLUTE NEUT (AUTO) 9.2 10^3/uL (1.7-8.2); BASOPHILS % (AUTO) 0.6 % (0-2); EOSINOPHILS % (AUTO) 2.6 % (0-6); HEMATOCRIT 42.4 % (36.0-47.0); HEMOGLOBIN 14.9 g/dL (12.0-15.5); LYMPHOCYTES % (AUTO) 18.3 % (13-45); MEAN CORPUSCULAR HEMOGLOBIN 31.2 pg (27.0-33.4); MEAN CORPUSCULAR HGB CONC 35.1 g/dL (32.0-36.0); MEAN CORPUSCULAR VOLUME 89 fl (80-97); PLATELET COUNT 454 10^3/uL (150-450); RED BLOOD COUNT 4.77 10^6/uL (3.72-5.28); SEGMENTED NEUTROPHILS % (AUTO) 70.5 % (42-78); TOTAL CELLS COUNTED % (AUTO) 100 %
[2018-01-22 15:06] LABS: ALANINE AMINOTRANSFERASE 24 U/L (9-52); ALBUMIN 1.7 g/dL (3.5-5.0); ALKALINE PHOSPHATASE 37 U/L (38-126); ANION GAP 6 (5-19); ASPARTATE AMINO TRANSFERASE 11 U/L (14-36); BILIRUBIN,TOTAL 0.3 mg/dL (0.2-1.3); BLOOD UREA NITROGEN 5 mg/dL (7-20); CARBON DIOXIDE 15 mmol/L (22-30); CHLORIDE 122 mmol/L (98-107); GLUCOSE 65 mg/dL (75-110); SODIUM 143.4 mmol/L (137-145); TOTAL PROTEIN 3.4 g/dL (6.3-8.2)
[2018-01-22 15:13] LABS: CREATINE KINASE < 20 U/L (30-135)
[2018-01-22 15:19] LABS: POTASSIUM 1.7 mmol/L (3.6-5.0)
[2018-01-22] MEDS ORDERED: DIPHENHYDRAMINE HCL 50 MG CAPSULE PO ONE (16:11)
[2018-01-22 16:21] LABS: ALANINE AMINOTRANSFERASE 24 U/L (9-52); ALBUMIN 3.6 g/dL (3.5-5.0); ALKALINE PHOSPHATASE 76 U/L (38-126); ANION GAP 12 (5-19); ASPARTATE AMINO TRANSFERASE 19 U/L (14-36); BILIRUBIN,DIRECT 0.2 mg/dL (0.0-0.4); BILIRUBIN,TOTAL 0.6 mg/dL (0.2-1.3); BLOOD UREA NITROGEN 8 mg/dL (7-20); CALCIUM 9.5 mg/dL (8.4-10.2); CARBON DIOXIDE 24 mmol/L (22-30); CHLORIDE 104 mmol/L (98-107); GLUCOSE 116 mg/dL (75-110); SODIUM 139.5 mmol/L (137-145); TOTAL PROTEIN 6.4 g/dL (6.3-8.2)
[2018-01-22] MEDS ORDERED: DOXYCYCLINE HYCLATE INJ 100 MG VIAL IV ONE (16:33)
[2018-01-22] MEDS ORDERED: METHYLPREDNISOLONE INJ 125 MG/2 ML SDV IV ONE (16:36)
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
[2018-01-22] MEDS ORDERED: POTASSIUM CHLORIDE 10 MEQ CAPSULE.ER PO ONE (16:40)
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
== END 2018-01-22 19:25 | disposition home or self-care (01) ==
LOC: ER 12:26
DX: L24.9 Irritant contact dermatitis, unspecified cause (principal); L03.115 Cellulitis of right lower limb; Z96.651 Presence of right artificial knee joint; E78.00 Pure hypercholesterolemia, unspecified; I10 Essential (primary) hypertension; Z86.73 Personal history of transient ischemic attack (TIA), and cerebral infarction without residual deficits; Z90.710 Acquired absence of both cervix and uterus
CPT/HCPCS: 99284; 96361; 96375; 96365; 36415; 87040; 82550; 83605; 83735; 85025; 80053; 73564; A9270 ×2; J3490; J2930; J2270; J7030

== ENCOUNTER 2018-01-25 21:52 | Emergency (ER) | payer MEDICARE, MEDICAID ==
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
[2018-01-25] MEDS ORDERED: ACETAMINOPHEN 325 MG TABLET PO ONE (23:38)
[2018-01-26 00:19] LABS: ABSOLUTE BASOPHILS # (AUTO) 0.1 10^3/uL (0.0-0.2); ABSOLUTE LYMPHOCYTES (AUTO) 3.2 10^3/uL (0.5-4.7); ABSOLUTE MONOCYTES (AUTO) 1.4 10^3/uL (0.1-1.4); ABSOLUTE NEUT (AUTO) 11.7 10^3/uL (1.7-8.2); BASOPHILS % (AUTO) 0.5 % (0-2); EOSINOPHILS % (AUTO) 0.1 % (0-6); HEMATOCRIT 39.9 % (36.0-47.0); HEMOGLOBIN 13.8 g/dL (12.0-15.5); LYMPHOCYTES % (AUTO) 19.4 % (13-45); MEAN CORPUSCULAR HEMOGLOBIN 30.8 pg (27.0-33.4); MEAN CORPUSCULAR HGB CONC 34.5 g/dL (32.0-36.0); MEAN CORPUSCULAR VOLUME 89 fl (80-97); MONOCYTES % (AUTO) 8.7 % (3-13); PLATELET COUNT 408 10^3/uL (150-450); RED BLOOD COUNT 4.46 10^6/uL (3.72-5.28); RED CELL DISTRIBUTION WIDTH 13.6 % (11.5-14.0); SEGMENTED NEUTROPHILS % (AUTO) 71.3 % (42-78); TOTAL CELLS COUNTED % (AUTO) 100 %; WHITE BLOOD COUNT 16.3 10^3/uL (4.0-10.5)
[2018-01-26 00:40] LABS: ACETAMINOPHEN 44 ug/mL (10-30); ALANINE AMINOTRANSFERASE 16 U/L (9-52); ALBUMIN 3.9 g/dL (3.5-5.0); ALCOHOL < 10 mg/dL (NONE DETECTED); ALKALINE PHOSPHATASE 60 U/L (38-126); ANION GAP 11 (5-19); ASPARTATE AMINO TRANSFERASE 44 U/L (14-36); BILIRUBIN,DIRECT 0.6 mg/dL (0.0-0.4); BILIRUBIN,TOTAL 0.7 mg/dL (0.2-1.3); BLOOD UREA NITROGEN 15 mg/dL (7-20); CALCIUM 9.7 mg/dL (8.4-10.2); CARBON DIOXIDE 25 mmol/L (22-30); CHLORIDE 104 mmol/L (98-107); GLUCOSE 89 mg/dL (75-110); SALICYLATE < 1.0 mg/dL (2.0-20.0); SODIUM 139.9 mmol/L (137-145); TOTAL PROTEIN 7.1 g/dL (6.3-8.2)
[2018-01-26 00:42] LABS: POTASSIUM 2.7 mmol/L (3.6-5.0)
[2018-01-26] MEDS ORDERED: POTASSIUM CHLORIDE 20 MEQ/15 ML UDCUP PO ONE (00:52)
[2018-01-26] MEDS ORDERED: MAGNESIUM OXIDE 400 MG TABLET PO ONE (00:53)
[2018-01-26 01:14] LABS: APPEARANCE,URINE SLIGHTLY-CLOUDY; BILIRUBIN,URINE NEGATIVE (NEGATIVE); COLOR,URINE YELLOW; GLUCOSE, URINE NEGATIVE (NEGATIVE); KETONES,URINE NEGATIVE (NEGATIVE); LEUKOCYTE ESTERASE,URINE NEGATIVE (NEGATIVE); NITRITE,URINE NEGATIVE (NEGATIVE); PROTEIN,URINE NEGATIVE (NEGATIVE); URINE SPECIFIC GRAVITY 1.018; UROBILINOGEN,URINE NEGATIVE mg/dL (<2.0)
[2018-01-26 01:28] LABS: URINE AMPHETAMINES SCREEN NEGATIVE; URINE BARBITURATES SCREEN NEGATIVE; URINE BENZODIAZEPINES SCREEN UNCONFIRMED POSITIVE; URINE COCAINE SCREEN NEGATIVE; URINE MARIJUANA (THC) SCREEN UNCONFIRMED POSITIVE; URINE METHADONE SCREEN NEGATIVE; URINE PHENCYCLIDINE SCREEN NEGATIVE
[2018-01-26] MEDS ORDERED: HALOPERIDOL 5 MG TABLET PO ONE (01:33)
--- NOTE | 2018-01-26 09:22 | ER Document Report ---
Doctor's Note Notes: 01/26/18 09:21 Vitals reviewed. Patient sleeping initially and in no distress. She is conversational now and had no current complaints. She denied any overnight issues. Final disposition pending psych consult.
[2018-01-26] MEDS ORDERED: EZETIMIBE 10 MG TABLET PO SCH (10:00)
[2018-01-26] MEDS ORDERED: METOPROLOL TARTRATE 50 MG TABLET PO SCH (10:00)
[2018-01-26] MEDS ORDERED: CLONIDINE HCL 0.1 MG TABLET PO SCH (10:00)
[2018-01-26] MEDS ORDERED: AMLODIPINE BESYLATE 2.5 MG TABLET PO SCH (10:00)
[2018-01-26] MEDS ORDERED: LOSARTAN POTASSIUM 25 MG TABLET PO SCH (10:00)
[2018-01-26] MEDS ORDERED: ACETAMINOPHEN 325 MG TABLET PO ONE (10:06)
[2018-01-26] MEDS ORDERED: ACETAMINOPHEN 325 MG TABLET ONE (10:07)
[2018-01-26 10:25] VITALS: BP 138/80
--- NOTE | 2018-01-27 07:50 | EKG REPORT ---
SEVERITY:- ABNORMAL ECG - SINUS RHYTHM ABNORMAL T, CONSIDER ISCHEMIA, ANTERIOR LEADS, NEW COMPARED TO 07/25/17 EKG : Confirmed by: Mehrdad Curtis MD 27-Jan-2018 07:49:50
== END 2018-01-26 10:25 | disposition home or self-care (01) ==
LOC: ER 21:52
DX: S71.131A Puncture wound without foreign body, right thigh, initial encounter (principal); X78.1XXA Intentional self-harm by knife, initial encounter; E87.6 Hypokalemia; Z88.6 Allergy status to analgesic agent; F17.200 Nicotine dependence, unspecified, uncomplicated; E78.00 Pure hypercholesterolemia, unspecified; I10 Essential (primary) hypertension; Z86.73 Personal history of transient ischemic attack (TIA), and cerebral infarction without residual deficits; E11.9 Type 2 diabetes mellitus without complications; Z87.442 Personal history of urinary calculi; Z90.710 Acquired absence of both cervix and uterus
CPT/HCPCS: 93005; 99284; 36415; 80307 ×4; 85025; 80053; 81001; 93010; A9270 ×10

== ENCOUNTER 2018-02-01 05:52 | Emergency (ER) | payer MEDICARE, MEDICAID ==
[2018-02-01] MEDS ORDERED: ALPRAZOLAM 0.5 MG TABLET PO ONE (06:54)
[2018-02-01] MEDS ORDERED: DIPHENHYDRAMINE HCL 25 MG CAPSULE PO ONE (06:54)
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
[2018-02-01 07:51] VITALS: BP 168/111
== END 2018-02-01 08:48 | disposition home or self-care (01) ==
LOC: ER 05:52
DX: L25.9 Unspecified contact dermatitis, unspecified cause (principal); I10 Essential (primary) hypertension; F41.9 Anxiety disorder, unspecified; L03.115 Cellulitis of right lower limb; F17.210 Nicotine dependence, cigarettes, uncomplicated; E78.5 Hyperlipidemia, unspecified; E11.9 Type 2 diabetes mellitus without complications; Z96.651 Presence of right artificial knee joint; Z87.442 Personal history of urinary calculi
CPT/HCPCS: 99406; 99283; A9270 ×2

== ENCOUNTER 2018-03-07 03:04 | Emergency (ER) | payer MEDICARE, MEDICAID ==
[2018-03-07 03:13] VITALS: BP 112/88
[2018-03-07] MEDS ORDERED: METHYLPREDNISOLONE INJ 125 MG/2 ML SDV IM ONE (04:25)
--- NOTE | 2018-03-07 04:34 | ER Document Report ---
HPI - HPI Patient complains to provider of: skin rash Time Seen by Provider: 03/07/18 04:04 Pain Level: Denies Context: Patient is a 62 year old female that comes to the ED for chief complaint of a rash that has developed mainly over her face and back over the past day. She states it is itchy. She states she tried putting moisturizing cream on her face and this caused it to dry out. She is using a special lotion for her scalp given to her by a automation qa tester, she started this 2 weeks ago, she denies any other exposures. She admits to frequent skin rashes including hives ever since she was a child. She has a history of eczema as well. She denies difficulty swallowing or breathing, she denies any other complaints. - REPRODUCTIVE Reproductive: DENIES: : Past Medical History - General Information source: Patient - Social History Smoking Status: Never Smoker Frequency of alcohol use: None Drug Abuse: None Lives with: Family Family History: Reviewed & Not Pertinent, Arthritis, CVA, Hyperlipidemia, Hypertension, Malignancy, Other - Thyroid cancer - Past Medical History Cardiac Medical History: Reports: Hx Hypercholesterolemia, Hx Hypertension Pulmonary Medical History: Reports: Hx Asthma Neurological Medical History: Reports: Hx Cerebrovascular Accident, Hx Migraine Endocrine Medical History: Reports: Hx Hypothyroidism - Thyroid removed. Denies : Hx Graves' Disease, Hx Hyperthyroidism. Comment Only: Hx Diabetes Mellitus Type 2 - borderline diet controlled Renal/ Medical History: Reports: Hx Kidney Stones, Hx Ovarian Cysts. Denies: Hx End Stage Renal Disease, Hx Peritoneal Dialysis, Hx Pelvic Inflammatory Disease Malignancy Medical History: Denies: Hx Breast Cancer, Hx Cervical Cancer, Hx Ovarian Cancer GI Medical History: Reports: Hx Gastroesophageal Reflux Disease, Hx Irritable Bowel Musculoskeletal Medical History: Reports Hx Arthritis, Reports Hx Musculoskeletal Deformity, Reports Hx Musculoskeletal Trauma Psychiatric Medical History: Reports: Hx Bipolar Disorder, Hx Depression, Hx Schizophrenia Denies: Hx Post Traumatic Stress Disorder Traumatic Medical History: Past Surgical History: Reports: Hx Abdominal Surgery - Ex Lap, Hx Section, Hx Gynecologic Surgery - hyst, Hx Hysterectomy, Hx Orthopedic Surgery - Right knee arthroplasty 07/29/17, Hx Thyroid Surgery, Hx TonsillectomyComment Only: Hx Appendectomy - Ex Lap - Immunizations Immunizations up to date: Yes Hx Diphtheria, Pertussis, Tetanus Vaccination: Yes Hx Pneumococcal Vaccination: 12/15/15 Vertical Provider Document - CONSTITUTIONAL General Appearance: WD/WN, No Apparent Distress - INFECTION CONTROL TRAVEL OUTSIDE OF THE [place] IN LAST 30 DAYS: No - HEENT HEENT: Atraumatic, Normal ENT Exam - Unremarkable oral pharyngeal exam, patent airway, normal tongue, normal uvula, Normocephalic - NECK Neck: Normal Inspection - RESPIRATORY Respiratory: Breath Sounds Normal, No Respiratory Distress - CARDIOVASCULAR Cardiovascular: Regular Rate, Regular Rhythm - GI/ABDOMEN Gastrointestinal: Abdomen Soft, Abdomen Non-Tender - BACK Back: Normal Inspection - MUSCULOSKELETAL/EXTREMETIES Musculoskeletal/Extremeties: MAEW, FROM, Non-Tender - NEURO Level of Consciousness: Awake, Alert, Appropriate - DERM Integumentary: Warm, Dry, Rash - Patchy erythematous raised rash consistent with wheels noted over the mid to lower back, over the neck, and over the face. Face has a dried out component and is much less raised and the rest of the areas. There is also a dried out excoriated rash over the right knee. No vesicles, bulla, pustules, induration, fluctuance noted. Course - Re-evaluation Re-evalutation: Right knee and even face have an eczema component appearance, remaining rash has urticarial component. Patient has had both in the past frequently. No evidence of anaphylaxis. Patient has never had anaphylaxis reportedly. Discussed with patient. Advised her that if we start on steroids and will help her symptoms but she will be less easily diagnosed by dermatology. Decision was made to proceed with steroids because of her symptoms, discussed follow-up discussed return precautions, patient states understanding and agreement. Stable at time of discharge. - Vital Signs Vital signs: Temp Pulse Resp BP Pulse Ox 98.6 F 84 18 112/88 H 97 03/07/18 03:12 03/07/18 03:12 03/07/18 03:12 03/07/18 03:12 03/07/18 03:12 Discharge - Discharge Clinical Impression: Skin rash Condition: Stable Disposition: HOME, SELF-CARE Additional Instructions: Your rash appears to be a mixture of hives and also nonspecific skin eruption, possibly eczema. You have been given Solu-Medrol, take prednisone as prescribed, continue either the Alicia daily or the Benadryl every 6 hours, also take the famotidine prescribed. Follow-up with your provider and with your automation qa tester. Return if you worsen including worsening rash, swelling of the face, tongue, throat, difficulty breathing, developing or spreading redness, fever, or any other concerning or worsening symptoms. Prescriptions: Famotidine [Pepcid 20 mg Tablet] 20 mg PO BID #14 tablet Prednisone [Deltasone 10 mg Tablet] 10 mg PO ASDIR PRN #21 tablet PRN Reason: Referrals: MARIKA BOTELLO MD [Primary Care Provider] - Follow up as needed
== END 2018-03-07 04:59 | disposition home or self-care (01) ==
LOC: ER 03:04
DX: R21 Rash and other nonspecific skin eruption (principal); I10 Essential (primary) hypertension; J45.909 Unspecified asthma, uncomplicated
CPT/HCPCS: 99282; 96372; J2930

== ENCOUNTER 2018-04-07 09:06 | Emergency (ER) | payer MEDICARE, MEDICAID ==
[2018-04-07 09:12] VITALS: BP 107/69
--- NOTE | 2018-04-07 09:20 | ER Document Report ---
ED Skin Rash/Insect Bite/Abscs - General Chief Complaint: Abscess Stated Complaint: POSSIBLE ABCESS Time Seen by Provider: 04/07/18 09:20 Mode of Arrival: Ambulatory Information source: Patient Notes: 62-year-old female presented to ED for complaint of painful rash to her right hip for a week. She states she has been seen by her primary doctor Trell and a bladder blower in [place]. She is receiving medication from both doctors. She states the pain and itching is still severe and she needs something else to help with the pain and itching. Patient is alert and oriented respirations regular and unlabored speaking in full sentences walks with a even steady gait. TRAVEL OUTSIDE OF THE [place] IN LAST 30 DAYS: No - HPI Patient complains to provider of: Skin rash/lesion Onset: Last week Onset/Duration: Gradual, Persistent, Worse Quality of pain: Burning Severity: Moderate Pain Level: 4 Skin Character: Erythema, Rash Quality of rash: Painful, Burning Identify cause: Yes Exacerbated by: Denies Relieved by: Denies Similar symptoms previously: Yes Recently seen / treated by doctor: Yes - Related Data Allergies/Adverse Reactions: hydrocodone [Hydrocodone] Allergy (Severe, Verified 04/07/18 09:06) sertraline HCl [From Zoloft] Allergy (Severe, Verified 04/07/18 09:06) hives, resp arrest propranolol HCl [From Inderal] Allergy (Intermediate, Verified 04/07/18 09:06) Hives ondansetron Allergy (Unknown, Verified 04/07/18 09:06) lamotrigine [From Lamictal] Allergy (Verified 04/07/18 09:06) propranolol Allergy (Verified 04/07/18 09:06) Past Medical History - General Information source: Patient - Social History Smoking Status: Never Smoker Cigarette use (# per day): No Chew tobacco use (# tins/day): No Smoking Education Provided: No Lives with: Family Family History: Reviewed & Not Pertinent, Arthritis, CVA, Hyperlipidemia, Hypertension, Malignancy, Other - Thyroid cancer Patient has suicidal ideation: No Patient has homicidal ideation: No - Past Medical History Cardiac Medical History: Reports: Hx Hypercholesterolemia, Hx Hypertension Pulmonary Medical History: Reports: Hx Asthma EENT Medical History: Reports: None Neurological Medical History: Reports: Hx Cerebrovascular Accident, Hx Migraine Endocrine Medical History: Reports: Hx Hypothyroidism - Thyroid removedComment Only: Hx Diabetes Mellitus Type 2 - borderline diet controlled Renal/ Medical History: Reports: Hx Kidney Stones, Hx Ovarian Cysts Malignancy Medical History: Reports: None GI Medical History: Reports: Hx Gastroesophageal Reflux Disease, Hx Irritable Bowel Musculoskeletal Medical History: Reports Hx Arthritis, Reports Hx Musculoskeletal Deformity, Reports Hx Musculoskeletal Trauma Skin Medical History: Reports None Psychiatric Medical History: Reports: Hx Bipolar Disorder, Hx Depression, Hx Schizophrenia Traumatic Medical History: Reports: None Infectious Medical History: Reports: None Past Surgical History: Reports: Hx Abdominal Surgery - Ex Lap, Hx Section, Hx Gynecologic Surgery - hyst, Hx Hysterectomy, Hx Orthopedic Surgery - Right knee arthroplasty 07/29/17, Hx Thyroid Surgery, Hx TonsillectomyComment Only: Hx Appendectomy - Ex Lap - Immunizations Immunizations up to date: Yes Hx Diphtheria, Pertussis, Tetanus Vaccination: Yes Hx Pneumococcal Vaccination: 12/15/15 Review of Systems - Review of Systems Constitutional: No symptoms reported EENT: No symptoms reported Cardiovascular: No symptoms reported Respiratory: No symptoms reported Gastrointestinal: No symptoms reported Genitourinary: No symptoms reported Female Genitourinary: No symptoms reported Musculoskeletal: No symptoms reported Skin: No symptoms reported, Rash Hematologic/Lymphatic: No symptoms reported Neurological/Psychological: No symptoms reported -: Yes All other systems reviewed and negative Physical Exam - Vital signs Vitals: Temp Pulse Resp BP Pulse Ox 98.3 F 89 16 107/69 97 04/07/18 09:11 04/07/18 09:11 04/07/18 09:11 04/07/18 09:11 04/07/18 09:11 Interpretation: Normal - General General appearance: Appears well, Alert - HEENT Head: Normocephalic, Atraumatic Eyes: Normal Pupils: PERRL - Respiratory Respiratory status: No respiratory distress Chest status: Nontender Breath sounds: Normal Chest palpation: Normal - Cardiovascular Rhythm: Regular Heart sounds: Normal auscultation Murmur: No - Abdominal Inspection: Normal Distension: No distension Bowel sounds: Normal Tenderness: Nontender Organomegaly: No organomegaly - Back Back: Normal, Nontender - Extremities General upper extremity: Normal inspection, Nontender, Normal color, Normal ROM, Normal temperature General lower extremity: Normal inspection, Nontender, Normal color, Normal ROM, Normal temperature, Normal weight bearing. No: Juliana's sign - Neurological Neuro grossly intact: Yes Cognition: Normal Orientation: AAOx4 Vicky Coma Scale Eye Opening: Spontaneous [place] Coma Scale Verbal: Oriented [place] Coma Scale Motor: Obeys Commands Vicky Coma Scale Total: 15 Speech: Normal Motor strength normal: LUE, RUE, LLE, RLE Sensory: Normal - Psychological Associated symptoms: Normal affect, Normal mood - Skin Skin Temperature: Warm Skin Moisture: Dry Skin Color: Normal Skin irregularity: Rash Location of irregularity: Other - right buttock and hip Character of irregularity: Erythematous Irregularity with: Tenderness, Scaling, Inflammation Course - Re-evaluation Re-evalutation: 04/07/18 09:55 She was treated with a Toradol injection and 60 mg of prednisone. Patient was discharged home with prescription for 40 mg prednisone times 3 days. Patient was instructed to follow-up with her primary doctor and her bladder blower. - Vital Signs Vital signs: Temp Pulse Resp BP Pulse Ox 98.3 F 89 16 107/69 97 04/07/18 09:11 04/07/18 09:11 04/07/18 09:11 04/07/18 09:11 04/07/18 09:11 Discharge - Discharge Clinical Impression: Rash and nonspecific skin eruption Condition: Stable Disposition: HOME, SELF-CARE Additional Instructions: STEROID MEDICATION: You have been given a medicine of the cortisone/steroid class. This medication is used to control inflammation or allergy. It is usually only given for a short period of time, until the acute process subsides. There are usually no side effects from short-term use of cortisone-like medications. Some persons feel an increased sense of well-being and are not sleepy at bedtime. Long-term use of cortisone medications is best avoided, unless required for a severe condition. If your condition does not remit, or relapses after the course of corticosteroid medication, you should consult your physician. Psoriasis You have psoriasis. This is a common disease, but the cause is unknown. Psoriasis often runs in families. The skin blemishes are usually red with a thick, silvery scale. It is most commonly seen over the knees, elbows, and scalp. The nails may become thickened or pitted. Psoriasis is treated with cortisone cream. You can wrap the area with plastic wrap overnight to increase the effectiveness of the cream. Tar preparations may be used on non-hairy areas. Medicated shampoos are often prescribed. Management by a bladder blower is advised. Toradol Injection You have been given an injection of ketorolac tromethamine (Toradol). This is an excellent, safe drug for pain control. It also has potent antiinflammatory action. You should have significant pain relief within about one hour. Toradol is not addicting and is non-sedating. It does not interfere with driving or work. Call or return if you develop itching, hives, shortness of breath, or rash. FOLLOW-UP CARE: If you have been referred to a physician for follow-up care, call the physicians office for an appointment as you were instructed or within the next two days. If you experience worsening or a significant change in your symptoms, notify the physician immediately or return to the Emergency Department at any time for re-evaluation. Prescriptions: Prednisone [Deltasone 20 mg Tablet] 2 tab PO DAILY 3 Days tablet Referrals: MARIKA BOTELLO MD [Primary Care Provider] - Follow up in 3-5 days
[2018-04-07] MEDS ORDERED: DEXAMETHASONE 4 MG TABLET PO ONE (09:23)
[2018-04-07] MEDS ORDERED: KETOROLAC TROMETHAMINE 60 MG/2 ML SDV IM ONE (09:23)
== END 2018-04-07 09:33 | disposition home or self-care (01) ==
LOC: ER 09:06
DX: R21 Rash and other nonspecific skin eruption (principal); J45.909 Unspecified asthma, uncomplicated; I10 Essential (primary) hypertension; Z86.73 Personal history of transient ischemic attack (TIA), and cerebral infarction without residual deficits; Z88.1 Allergy status to other antibiotic agents
CPT/HCPCS: 99282; 96372; A9270; J1885

== ENCOUNTER 2018-07-29 06:22 | Emergency (ER) | payer MEDICARE, MEDICAID ==
[2018-07-29] MEDS ORDERED: MORPHINE SULFATE 10 MG/ML INJ IM ONE (07:48)
--- NOTE | 2018-07-29 08:02 | RADIOLOGY REPORT (SQ) ---
EXAM: X-ray hip two or more views CLINICAL DATA: 62-year-old female with right hip pain TECHNICAL DATA: Two x-ray views of the pelvis and right hip were performed on 07/29/2018 at 7:46 AM. COMPARISONS: None FINDINGS: There is no evidence of fracture or dislocation. There is no significant arthritis or degenerative change. No focal lytic or sclerotic bone lesions are seen. Bone mineralization is normal. No focal soft tissue abnormalities are identified. IMPRESSION: No evidence of acute osseous injury involving the pelvis or right hip.
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
[2018-07-29 09:12] VITALS: BP 105/57
== END 2018-07-29 09:05 | disposition home or self-care (01) ==
LOC: ER 06:22
DX: S90.32XA Contusion of left foot, initial encounter (principal); M79.672 Pain in left foot; V09.9XXA Pedestrian injured in unspecified transport accident, initial encounter; S80.211A Abrasion, right knee, initial encounter; S80.212A Abrasion, left knee, initial encounter; M25.561 Pain in right knee; M25.551 Pain in right hip; W19.XXXA Unspecified fall, initial encounter; Y93.89 Activity, other specified; Z96.651 Presence of right artificial knee joint; I10 Essential (primary) hypertension; J45.909 Unspecified asthma, uncomplicated
CPT/HCPCS: 99283; 96372; 73630; 73502; 73564; J2270

== ENCOUNTER 2018-08-13 05:21 | Emergency (ER) | payer MEDICARE, MEDICAID ==
[2018-08-13] MEDS ORDERED: DEXAMETHASONE SOD PHOS INJ 10 MG/1 ML VIAL IM ONE (08:28)
[2018-08-13] MEDS ORDERED: KETOROLAC TROMETHAMINE 60 MG/2 ML SDV IM ONE (08:28)
--- NOTE | 2018-08-13 08:34 | ER Document Report ---
HPI - HPI Time Seen by Provider: 08/13/18 08:10 Notes: Patient is a 62-year-old female with history of chronic back pain and sciatica, under care of pain management, who presents complaining of a flareup of her sciatica. Patient states that she was seen by her pain management group 5 days ago and was given a Toradol shot which did work, but pain returned a couple days later. Patient states the pain is the exact same as it always is running down the back side of her right leg from her buttock to her calf. Pressure in the area makes her symptoms worse. Patient also has a history of psoriasis and rheumatoid arthritis. She is eating and drinking without difficulty. She is urinating normally and having normal bowel movements. No history of spinal abscess, diabetes, IV drug abuse. Denies any headache, fever, URI, sore throat, chest pain, palpitations, syncope, cough, shortness of breath, wheeze, dyspnea, abdominal pain, nausea/vomiting/diarrhea, urinary retention, dysuria, hematuria, loss of control of bowel or bladder, numbness/tingling, saddle anesthesia, muscle paralysis/weakness. - ROS Systems Reviewed and Negative: Yes All other systems reviewed and negative - CONSTITUTIONAL Constitutional: DENIES: Fever, Chills - EENT EENT: DENIES: Sore Throat, Ear Pain, Eye problems - NEURO Neurology: DENIES: Headache, Weakness, Vision blurred, Dizzinesss / Vertigo - CARDIOVASCULAR Cardiovascular: DENIES: Chest pain - RESPIRATORY Respiratory: DENIES: Trouble Breathing, Coughing - GASTROINTESTINAL Gastrointestinal: DENIES: Abdominal Pain, Black / Bloody Stools - URINARY Urinary: DENIES: Dysuria, Urgency, Frequency - REPRODUCTIVE Reproductive: DENIES: : - MUSCULOSKELETAL Musculoskeletal: DENIES: Extremity pain Past Medical History - Social History Smoking Status: Unknown if Ever Smoked Family History: Reviewed & Not Pertinent, Arthritis, CVA, Hyperlipidemia, Hypertension, Malignancy, Other - Thyroid cancer Patient has suicidal ideation: No Patient has homicidal ideation: No - Past Medical History Cardiac Medical History: Reports: Hx Hypercholesterolemia, Hx Hypertension Pulmonary Medical History: Reports: Hx Asthma Neurological Medical History: Reports: Hx Cerebrovascular Accident, Hx Migraine Endocrine Medical History: Reports: Hx Hypothyroidism - Thyroid removed. Denies: Hx Graves' Disease, Hx Hyperthyroidism. Comment Only: Hx Diabetes Mellitus Type 2 - borderline diet controlled Renal/ Medical History: Reports: Hx Kidney Stones, Hx Ovarian Cysts. Denies: Hx End Stage Renal Disease, Hx Peritoneal Dialysis, Hx Pelvic Inflammatory Disease Malignancy Medical History: Denies: Hx Breast Cancer, Hx Cervical Cancer, Hx Ovarian Cancer GI Medical History: Reports: Hx Gastroesophageal Reflux Disease, Hx Irritable Bowel Musculoskeletal Medical History: Reports Hx Arthritis, Reports Hx Musculoskeletal Deformity, Reports Hx Musculoskeletal Trauma Psychiatric Medical History: Reports: Hx Bipolar Disorder, Hx Depression, Hx Schizophrenia Denies: Hx Post Traumatic Stress Disorder Traumatic Medical History: Past Surgical History: Reports: Hx Abdominal Surgery - Ex Lap, Hx Section, Hx Gynecologic Surgery - hyst, Hx Hysterectomy, Hx Orthopedic Surgery - Right knee arthroplasty 07/29/17, Hx Thyroid Surgery, Hx TonsillectomyComment Only: Hx Appendectomy - Ex Lap - Immunizations Immunizations up to date: Yes Hx Diphtheria, Pertussis, Tetanus Vaccination: Yes Hx Pneumococcal Vaccination: 12/15/15 Vertical Provider Document - CONSTITUTIONAL Agree With Documented VS: Yes Notes: PHYSICAL EXAMINATION: GENERAL: Well-appearing, well-nourished and in no acute distress. LUNGS: Breath sounds clear to auscultation bilaterally and equal. No wheezes rales or rhonchi. HEART: Regular rate and rhythm without murmurs, rubs, gallops. ABDOMEN: Soft, nontender, nondistended abdomen. No guarding, no rebound. Normal bowel sounds present. No CVA tenderness bilaterally. No pulsatile mass Musculoskeletal: LE's b/l: FROM to passive/active. Strength 5+/5. No deficits noted. No bony tenderness of extremities. Back: FROM to passive/active. Strength 5+/5. No vertebral point tenderness, stepoffs, or deformities. No other bony tenderness, erythema, swelling, or ecchymosis. SLR negative b/l. + mild tenderness to the L-paraspinal mm b/l. Mild spasming. + mild right SI jt tenderness. No foot drop Extremities: No cyanosis, clubbing, or edema b/l. Peripheral pulses 2+. Capillary refill less than 2 seconds. NEUROLOGICAL: Normal speech, normal/slight limp to her gait. Normal sensory, motor exams. Reflexes 2+ b/l. PSYCH: Normal mood, normal affect. SKIN: Warm, Dry, normal turgor, no rashes or lesions noted. - INFECTION CONTROL TRAVEL OUTSIDE OF THE [place] IN LAST 30 DAYS: No Course - Re-evaluation Re-evalutation: 08/13/18 08:31 Patient is an afebrile, well-hydrated, 62-year-old male who presents to the ED with acute on chronic sciatic pain. Vitals are acceptable. PE is otherwise unremarkable for any focal neurological deficits. Patient was given Decadron (pt request) and Toradol. She has no significant tachycardia, tachypnea, or hypoxia. She is nontoxic-appearing and is tolerating p.o. without difficulties. There are no signs of infection. No other red flag symptoms noted. No other labs or imaging warranted at this time based on H&P. Low suspicion for any meningitis, fracture, expanding/ruptured AAA, cauda equina syndrome, epidural mass lesion/abscess, herniated disc causing severe spinal stenosis, or other systemic infection at this time. Patient is aware that this condition can change from initial presentation and that she needs monitor symptoms closely for any acute changes. Conservative measures otherwise for symptoms. Recheck with your PCM/Pain management clinic in 3-5 days. Consider consult with orthopedic/physical therapy. Return to the ED with any worsening/concerning symptoms otherwise as reviewed discharge. Patient is in agreement. Discharge - Discharge Clinical Impression: Sciatic leg pain Condition: Stable Disposition: HOME, SELF-CARE Instructions: Sciatica ([facility]) Additional Instructions: Rest, Ice Tylenol/ibuprofen as needed Light stretches daily Strength exercises as able Moist heat and massage may help F/u with your PCP/Pain management in 3-5 days for a recheck Consider consult(s) with Orthopedics/physical therapy for ongoing/worsening symptoms Return to the ED with any worsening symptoms and/or development of fever, headache, chest pain, palpitations, syncope, shortness of breath, trouble breathing, abdominal pain, n/v/d, blood in stool/urine, loss of control of bowel/bladder, urinary retention, muscle weakness/paralysis, saddle anesthesia, numbness/tingling, or other worsening symptoms that are concerning to you. Referrals: MARIKA BOTELLO MD [Primary Care Provider] - Follow up as needed
[2018-08-13 09:05] VITALS: BP 102/65
== END 2018-08-13 09:07 | disposition home or self-care (01) ==
LOC: ER 05:21
DX: M54.30 Sciatica, unspecified side (principal); M79.604 Pain in right leg; M54.9 Dorsalgia, unspecified; G89.29 Other chronic pain; Z79.899 Other long term (current) drug therapy; I10 Essential (primary) hypertension; J45.909 Unspecified asthma, uncomplicated; E11.9 Type 2 diabetes mellitus without complications
CPT/HCPCS: 99283; 96372; J1885; J1100

== ENCOUNTER → 2018-09-26 | Outpatient (CLI) | payer MEDICARE, MEDICAID ==
--- NOTE | 2018-10-02 13:29 | WOMENS IMAGING REPORT ---
EXAM DESCRIPTION: 3D SCREENING MAMMO BILAT COMPLETED DATE/TIME: 09/26/2018 7:42 am REASON FOR STUDY: Z12.31 ENCOUNTER FOR SCREENING MAMMOGRAM FOR MALIGNANT NEOPLASM OF BREAST Z12.31 ENCNTR SCREEN MAMMOGRAM FOR MALIGNANT NEOPLASM OF ANDI COMPARISON: Multiple since 2009 EXAM PARAMETERS: Standard craniocaudal and mediolateral oblique views of each breast recorded using digital acquisition and breast tomosynthesis. Additional "push-back" craniocaudal and mediolateral ob lique images acquired. Read with the assistance of CAD. .[facility] - [facility]K Scheduling Assistant Version 9.2 LIMITATIONS: None. FINDINGS: IMPLANTS: Bilateral subpectoral implants. RIGHT BREAST MASSES: No suspicious masses. CALCIFICATIONS: In the upper outer quadrant, about 7 cm from the nipple, a group of calcifications va riable in size shape and density is present. Although these are similar compared to diagnostic mammo grams from 2017, the variability in size shape and density could indicate DCIS. These calcifications are very close to the implant surface at the 12 o'clock position. Prior ultrasound in 2017 demonstr ated these calcifications at about the 12 o'clock position within a hypoechoic 7 mm nodule. Ultrasou nd-guided core biopsy of these calcifications with post biopsy clip placement and follow-up mammogram s is recommended. ARCHITECTURAL DISTORTION: None. DEVELOPING DENSITY: None. ASYMMETRY: None noted. OTHER: No other significant findings. LEFT BREAST MASSES: No suspicious masses. CALCIFICATIONS: No new or suspicious calcifications. ARCHITECTURAL DISTORTION: None. DEVELOPING DENSITY: None. ASYMMETRY: None noted. OTHER: No other significant findings. IMPRESSION: Closely grouped right breast calcifications 12 o'clock position for which biopsy is shona mmended as above (BI-RADS 4). No mammographic/ tomosynthesis evidence for malignancy left breast. 0 INCOMPLETE: NEEDS ADDITIONAL IMAGING EVALUATION AND/OR PRIOR MAMMOGRAMS FOR COMPARISON. BREAST DENSITY: b. There are scattered areas of fibroglandular density. BIRAD: ASSESSMENT: BI-RADS 4 Suspicious. Needing intervention but with a low suspicion for malignan cy. Biopsy should be performed in the absence of clinical contra-indication. RECOMMENDATION: RECOMMENDED FOLLOW-UP: Right breast ultrasound-guided core biopsy 12 o'clock positio n with post biopsy clip placement and follow-up two-view mammogram as above Patient notified by letter COMMENT: The patient has been notified of the results by letter per MQSA requirements. Additional no tification policies are in place for contacting patient with suspicious or incomplete findings. Quality ID #[id number]: The [employer] recommends an annual screening mammogram for women aged 40 years or over. This facility utilizes a reminder system to ensure that all patients receive reminder letters, and/or direct phone calls for appointments. This includes reminders for routine scr eening mammograms, diagnostic mammograms, or other Breast Imaging Interventions when appropriate. Th is patient will be placed in the appropriate reminder system. TECHNICAL DOCUMENTATION: FINDING NUMBER: (1) ASSESSMENT: (1) JOB ID: [id number]- All Rights Reserved Reading location - IP/workstation name: [email or web address]
== END ==
LOC: WI 07:08
PROVIDERS: ATTEND Internal Medicine
DX: Z12.31 Encounter for screening mammogram for malignant neoplasm of breast (principal); R92.0 Mammographic microcalcification found on diagnostic imaging of breast; Z98.82 Breast implant status
CPT/HCPCS: 77063; 77067

== ENCOUNTER 2018-10-18 10:31 | Emergency (ER) | payer MEDICARE, MEDICAID ==
[2018-10-18 10:37] VITALS: BP 117/77
--- NOTE | 2018-10-18 10:42 | ER Document Report ---
ED Medical Screen (RME) - General Chief Complaint: Diarrhea Stated Complaint: FALL/LEG PAIN, DIARRHEA Time Seen by Provider: 10/18/18 10:36 Primary Care Provider: JM DOUGLASS PA-C [Primary Care Provider] - Follow up as needed Mode of Arrival: Ambulatory Information source: Patient Notes: Patient presents to the emergency department with complaints of right knee pain. Reports she fell yesterday. Patient also complains of diarrhea since yesterday multiple times uncontrollable. Reports she is taken multiple meux-xun-dtvyjiv medications without relief of symptoms. Patient is very tearful. At first she denies vomiting or any other symptoms. As we talked more she reports she vomited yesterday she feels lightheaded and dizzy. Patient is very tearful denied abdominal pain. Denied recent antibiotics. Denied recent trips. I have greeted and performed a rapid initial assessment of this patient. A comprehensive ED assessment and evaluation of the patient, analysis of test results and completion of the medical decision making process will be conducted by additional ED providers. Dictation of this chart was performed using voice recognition software; therefore, there may be some unintended grammatical errors. TRAVEL OUTSIDE OF THE [place] IN LAST 30 DAYS: No - Related Data Allergies/Adverse Reactions: hydrocodone [Hydrocodone] Allergy (Severe, Verified 10/18/18 10:31) sertraline HCl [From Zoloft] Allergy (Severe, Verified 10/18/18 10:31) hives, resp arrest propranolol HCl [From Inderal] Allergy (Intermediate, Verified 10/18/18 10:31) Hives ondansetron Allergy (Unknown, Verified 10/18/18 10:31) lamotrigine [From Lamictal] Allergy (Verified 10/18/18 10:31) propranolol Allergy (Verified 10/18/18 10:31) Past Medical History - Social History Family history: Reviewed & Not Pertinent - Past Medical History Cardiac Medical History: Reports: Hx Hypercholesterolemia, Hx Hypertension Pulmonary Medical History: Reports: Hx Asthma Neurological Medical History: Reports: Hx Cerebrovascular Accident, Hx Migraine Endocrine Medical History: Reports: Hx Hypothyroidism - Thyroid removed. Den ies: Hx Graves' Disease, Hx Hyperthyroidism. Comment Only: Hx Diabetes Mellitus Type 2 - borderline diet controlled Renal/ Medical History: Reports: Hx Kidney Stones, Hx Ovarian Cysts. Denies: Hx End Stage Renal Disease, Hx Peritoneal Dialysis, Hx Pelvic Inflammatory Disease Malignancy Medical History: Denies: Hx Breast Cancer, Hx Cervical Cancer, Hx Ovarian Cancer GI Medical History: Reports: Hx Gastroesophageal Reflux Disease, Hx Irritable Bowel Musculoskeltal Medical History: Reports Hx Arthritis, Reports Hx Musculoskeletal Deformity, Reports Hx Musculoskeletal Trauma, Denies Hx Systemic Lupus Erythematosus Psychiatric Medical History: Reports: Hx Bipolar Disorder, Hx Depression, Hx Schizophrenia Denies: Hx Post Traumatic Stress Disorder Traumatic Medical History: Past Surgical History: Reports: Hx Abdominal Surgery - Ex Lap, Hx Section, Hx Gynecologic Surgery - hyst, Hx Hysterectomy, Hx Orthopedic Surgery - Right knee arthroplasty 07/29/17, Hx Thyroid Surgery, Hx TonsillectomyComment Only: Hx Appendectomy - Ex Lap - Immunizations Immunizations up to date: Yes Hx Diphtheria, Pertussis, Tetanus Vaccination: Yes History of Influenza Vaccine for 01/2017 - 06/2017 Season: Yes Influenza Administration Date for 01/2017 - 06/2017 Season: 01/13/17 Physical Exam - Vital signs Vitals: Temp Pulse Resp BP Pulse Ox 98.3 F 98 20 117/77 98 10/18/18 10:37 10/18/18 10:37 10/18/18 10:37 10/18/18 10:37 10/18/18 10:37 Course - Vital Signs Vital signs: Temp Pulse Resp BP Pulse Ox 98.3 F 98 20 117/77 98 10/18/18 10:37 10/18/18 10:37 10/18/18 10:37 10/18/18 10:37 10/18/18 10:37 Doctor's Discharge - Discharge Referrals: JM DOUGLASS PA-C [Primary Care Provider] - Follow up as needed
[2018-10-18 11:00] LABS: ABSOLUTE LYMPHOCYTES (AUTO) 1.7 10^3/uL (0.5-4.7); ABSOLUTE MONOCYTES (AUTO) 0.7 10^3/uL (0.1-1.4); ABSOLUTE NEUT (AUTO) 4.8 10^3/uL (1.7-8.2); BASOPHILS % (AUTO) 0.5 % (0-2); EOSINOPHILS % (AUTO) 0.3 % (0-6); HEMATOCRIT 35.3 % (36.0-47.0); HEMOGLOBIN 12.6 g/dL (12.0-15.5); LYMPHOCYTES % (AUTO) 23.1 % (13-45); MEAN CORPUSCULAR HEMOGLOBIN 30.1 pg (27.0-33.4); MEAN CORPUSCULAR HGB CONC 35.8 g/dL (32.0-36.0); MEAN CORPUSCULAR VOLUME 84 fl (80-97); MONOCYTES % (AUTO) 9.6 % (3-13); PLATELET COUNT 425 10^3/uL (150-450); RED CELL DISTRIBUTION WIDTH 11.9 % (11.5-14.0); SEGMENTED NEUTROPHILS % (AUTO) 66.5 % (42-78); TOTAL CELLS COUNTED % (AUTO) 100 %; WHITE BLOOD COUNT 7.2 10^3/uL (4.0-10.5)
--- NOTE | 2018-10-18 11:10 | ER Document Report ---
Addendum entered and electronically signed by FREDDY HERRON PA-C 10/18/18 14:33: Discharge - Discharge Clinical Impression: Hypokalemia Right knee pain Qualifiers: Chronicity: chronic Qualified Code(s): M25.561 - Pain in right knee Diarrhea Qualifiers: Diarrhea type: unspecified type Qualified Code(s): R19.7 - Diarrhea, unspecified Condition: Good Disposition: HOME, SELF-CARE Additional Instructions: You most likely have gastroenteritis. This is an irritation of the stomach and intestinal tract. It's usually caused by a virus, but can also be caused by bacteria, toxins that cause food poisoning, or excessive alcohol intake. Symptoms may include fever, painful abdominal cramps, nausea, vomiting, and diarrhea. Start with small amounts (two to six ounces) of clear liquids (soft drinks, herb teas, broth, etc). Try to take fluids frequently even if you are vomiting, to prevent dehydration. When liquids are being consumed successfully, advance to small amounts of bland food (mashed potato, toast) for 6 - 12 hours. Gastroenteritis rarely requires medication. It goes away by itself. Use good handwashing so you don't spread germs. Wash underwear in very hot water. If symptoms are severe, talk to the doctor. Call your physician if blood appears in your vomitus or stool, if vomiting lasts longer than 24 hours, if the abdominal pain worsens or becomes localized to one area, or if you develop high fever. For your knee pain I have given you another dose of pain medication while here in the ER. Your x-rays were normal and did not show any internal derangement of the right knee. Please follow-up with your primary doctor early next week. Your potassium level was low today and you received a dose of potassium here to help increase it. Have also given you a short prescription for 3 days worth of potassium that you will take 2 times per day. Prescriptions: Potassium Chloride 10 meq PO BID 3 Days #6 capsule.er Referrals: JM DOUGLASS PA-C [ALLIED HEALTH PROFESSIONAL] - Follow up as needed Original Note: ED General - General Chief Complaint: Diarrhea Stated Complaint: FALL/LEG PAIN, DIARRHEA Time Seen by Provider: 10/18/18 10:36 Primary Care Provider: JM DOUGLASS PA-C [ALLIED HEALTH PROFESSIONAL] - Follow up as needed Mode of Arrival: Ambulatory Notes: 62-year-old female with hypertension, hyperlipidemia, type 2 diabetes, bipolar disorder, anxiety presents with complaint of right knee pain and a fall yesterday along with profuse diarrhea for the past 24 hours. She had a knee replacement in 2018 and states that she has been unstable on her knee and has pe riodic falls. She states the pain has been significant over the last week. She denies any fevers or redness on her knee, she is able to move her knee, denies any trauma, denies any posterior calf pain. For her diarrhea, she said it came on suddenly and there are no sick contacts with similar symptoms, she had "several" episodes yesterday and 2 episodes this morning after which she took an Imodium which seemed to work. She denies fevers or chills, denies any acute shortness of breath or chest pain, denies nausea or vomiting, denies abdominal pain denies any recent antibiotic use denies any recent travel. No other complaints at this time. TRAVEL OUTSIDE OF THE [place] IN LAST 30 DAYS: No - Related Data Allergies/Adverse Reactions: hydrocodone [Hydrocodone] Allergy (Severe, Verified 10/18/18 10:31) sertraline HCl [From Zoloft] Allergy (Severe, Verified 10/18/18 10:31) hives, resp arrest propranolol HCl [From Inderal] Allergy (Intermediate, Verified 10/18/18 10:31) Hives ondansetron Allergy (Unknown, Verified 10/18/18 10:31) lamotrigine [From Lamictal] Allergy (Verified 10/18/18 10:31) propranolol Allergy (Verified 10/18/18 10:31) Past Medical History - General Information source: Patient - Social History Smoking Status: Never Smoker Chew tobacco use (# tins/day): No Frequency of alcohol use: Occasional Drug Abuse: None Family History: Reviewed & Not Pertinent, Arthritis, CVA, Hyperlipidemia, H ypertension, Malignancy, Other Patient has suicidal ideation: No Patient has homicidal ideation: No - Past Medical History Cardiac Medical History: Reports: Hx Hypercholesterolemia, Hx Hypertension Pulmonary Medical History: Reports: Hx Asthma Neurological Medical History: Reports: Hx Cerebrovascular Accident, Hx Migraine Endocrine Medical History: Reports: Hx Hypothyroidism - Thyroid removed. Denies: Hx Graves' Disease, Hx Hyperthyroidism. Comment Only: Hx Diabetes Mellitus Type 2 - borderline diet controlled Renal/ Medical History: Reports: Hx Kidney Stones, Hx Ovarian Cysts. Denies: Hx End Stage Renal Disease, Hx Peritoneal Dialysis, Hx Pelvic Inflammatory Disease Malignancy Medical History: Denies: Hx Breast Cancer, Hx Cervical Cancer, Hx Ovarian Cancer GI Medical History: Reports: Hx Gastroesophageal Reflux Disease, Hx Irritable Bowel Musculoskeletal Medical History: Reports Hx Arthritis, Reports Hx Musculoskelet al Deformity, Reports Hx Musculoskeletal Trauma, Denies Hx Systemic Lupus Erythematosus Psychiatric Medical History: Reports: Hx Bipolar Disorder, Hx Depression, Hx Schizophrenia Denies: Hx Post Traumatic Stress Disorder Traumatic Medical History: Past Surgical History: Reports: Hx Abdominal Surgery - Ex Lap, Hx Section, Hx Gynecologic Surgery - hyst, Hx Hysterectomy, Hx Orthopedic Surgery - Right knee arthroplasty 07/29/17, Hx Thyroid Surgery, Hx TonsillectomyComment Only: Hx Appendectomy - Ex Lap - Immunizations Immunizations up to date: Yes Hx Diphtheria, Pertussis, Tetanus Vaccination: Yes Hx Pneumococcal Vaccination: 12/15/15 Review of Systems - Review of Systems Constitutional: See HPI EENT: See HPI Cardiovascular: See HPI Respiratory: See HPI Gastrointestinal: See HPI Genitourinary: No symptoms reported Female Genitourinary: No symptoms reported Musculoskeletal: No symptoms reported Skin: See HPI Hematologic/Lymphatic: No symptoms reported Neurological/Psychological: No symptoms reported Physical Exam - Vital signs Vitals: Temp Pulse Resp BP Pulse Ox 98.3 F 98 20 117/77 98 10/18/18 10:37 10/18/18 10:37 10/18/18 10:37 10/18/18 10:37 10/18/18 10:37 - Notes Notes: PHYSICAL EXAMINATION: Reviewed vital signs and charting by RN GENERAL: Alert, interacts well. Appears in mild distress and is tearful. HEAD: Normocephalic, atraumatic. EYES: Pupils equal and round. Extraocular movements intact. ENT: Oral mucosa moist, tongue midline. NECK: Full range of motion. Trachea midline. LUNGS: Clear to auscultation bilaterally, no wheezes, rales, or rhonchi. No respiratory distress. HEART: Regular rate and rhythm. No murmur ABDOMEN: soft, non-tender. No distention. Bowel sounds present EXTREMITIES: Moves all 4 extremities spontaneously. 6 inch vertical scar across the anterior right knee that is well-healed, no erythema of the right knee, mild swelling of the right knee, full range of motion in all 4 extremities, no palpable tenderness at the posterior right leg, no pain out of proportion to movement PSYCH: Normal affect, normal mood. SKIN: Warm, dry, normal turgor. No rashes or lesions noted. Course - Re-evaluation Re-evalutation: 10/18/18 11:32 Patient presents with profuse diarrhea and right knee pain. Basic lab work obtained and potassium level 2.8. She received 40 mEq once here [facility] the [facility]. I have also ordered a magnesium as a lab add-on but given her normal saline 1 L for rehydration. Will reassess after. Still awaiting patient to provide a stool sample. 10/18/18 14:27 Although my pretest probability was less than 15% I ordered a d-dimer on the patient for her right knee and leg pain. It was negative. At this time patient does have chronic knee pain and is followed by pain management. She has not had a bowel movement and has tolerated p.o. intake. Her vital signs have been within normal limits. I plan to give her an additional Percocet prior to her leaving and she does have a ride. Her knee exam was overall unremarkable and I have no suspicion for septic arthritis. Patient has not had an episode of diarrhea her entire stay so I am going to defer the stool studies. Patient is stable for discharge. I told her follow-up with her primary care doctor early next week. - Vital Signs Vital signs: Temp Pulse Resp BP Pulse Ox 98.3 F 98 13 117/77 97 10/18/18 11:08 10/18/18 10:37 10/18/18 11:08 10/18/18 10:37 10/18/18 11:08 - Laboratory Result Diagrams: 10/18/18 10:42 10/18/18 10:42 Laboratory results interpreted by me: 10/18/18 10/18/18 10/18/18 10:42 10:42 10:42 Hct 35.3 L Sodium 121.7 L Potassium 2.8 L* Chloride 75 L Anion Gap 20 H Glucose 116 H Magnesium 1.4 L Discharge - Discharge Clinical Impression: Right knee pain Qualifiers: Chronicity: chronic Qualified Code(s): M25.561 - Pain in right knee; G89.29 - Other chronic pain Diarrhea Qualifiers: Diarrhea type: unspecified type Qualified Code(s): R19.7 - Diarrhea, unspecified Condition: Good Disposition: HOME, SELF-CARE Additional Instructions: You most likely have gastroenteritis. This is an irritation of the stomach and intestinal tract. It's usually caused by a virus, but can also be caused by bacteria, toxins that cause food poisoning, or excessive alcohol intake. Symptoms may include fever, painful abdominal cramps, nausea, vomiting, and diarrhea. Start with small amounts (two to six ounces) of clear liquids (soft drinks, herb teas, broth, etc). Try to take fluids frequently even if you are vomiting, to prevent dehydration. When liquids are being consumed successfully, advance to small amounts of bland food (mashed potato, toast) for 6 - 12 hours. Gastroenteritis rarely requires medication. It goes away by itself. Use good handwashing so you don't spread germs. Wash underwear in very hot water. If symptoms are severe, talk to the doctor. Call your physician if blood appears in your vomitus or stool, if vomiting lasts longer than 24 hours, if the abdominal pain worsens or becomes localized to one area, or if you develop high fever. For your knee pain I have given you another dose of pain medication while here in the ER. Your x-rays were normal and did not show any internal derangement of the right knee. Please follow-up with your primary doctor early next week. Prescriptions: Potassium Chloride 10 meq PO BID 3 Days #6 capsule.er Referrals: JM DOUGLASS PA-C [ALLIED HEALTH PROFESSIONAL] - Follow up as needed
[2018-10-18] MEDS ORDERED: NORMAL SALINE 1000 ML 1,000 ML IV ONE (11:13)
[2018-10-18 11:16] LABS: ALANINE AMINOTRANSFERASE 21 U/L (9-52); ALBUMIN 4.8 g/dL (3.5-5.0); ALKALINE PHOSPHATASE 86 U/L (38-126); ASPARTATE AMINO TRANSFERASE 24 U/L (14-36); BILIRUBIN,DIRECT 0.2 mg/dL (0.0-0.4); BILIRUBIN,TOTAL 0.5 mg/dL (0.2-1.3); BLOOD UREA NITROGEN 11 mg/dL (7-20); CALCIUM 10.1 mg/dL (8.4-10.2); CARBON DIOXIDE 27 mmol/L (22-30); CHLORIDE 75 mmol/L (98-107); GLUCOSE 116 mg/dL (75-110); SODIUM 121.7 mmol/L (137-145); TOTAL PROTEIN 7.7 g/dL (6.3-8.2)
[2018-10-18 11:17] LABS: ANION GAP 20 (5-19)
[2018-10-18 11:18] LABS: POTASSIUM 2.8 mmol/L (3.6-5.0)
[2018-10-18] MEDS ORDERED: POTASSIUM CHLORIDE 10 MEQ CAPSULE.ER PO ONE (11:30)
--- NOTE | 2018-10-18 12:18 | RADIOLOGY REPORT (SQ) ---
EXAM DESCRIPTION: KNEE RIGHT 4 VIEWS COMPLETED DATE/TIME: 10/18/2018 11:18 am REASON FOR STUDY: pain, hx replacement, fall yesterday COMPARISON: Right knee four views 07/29/2018, 01/22/2018 NUMBER OF VIEWS: Four views. TECHNIQUE: AP, lateral, and both oblique radiographic images acquired of the right knee. LIMITATIONS: None. FINDINGS: MINERALIZATION: Normal. BONES: No acute fracture or dislocation. No worrisome bone lesions. JOINT: Trace effusion. Total knee replacement with patellar resurfacing. SOFT TISSUES: No soft tissue swelling. No radio-opaque foreign body. OTHER: No other significant finding. IMPRESSION: Trace joint effusion. TECHNICAL DOCUMENTATION: JOB ID: [id number] [employer]- All Rights Reserved Reading location - IP/workstation name: [email or web address]
[2018-10-18] MEDS ORDERED: OXYCODONE-ACETAMINOPHEN 5-325 MG TABLET PO ONE ×2 (12:19→14:33)
--- NOTE | 2018-10-18 19:17 | EKG REPORT ---
SEVERITY:- ABNORMAL ECG - SINUS RHYTHM PROBABLE LEFT ATRIAL ABNORMALITY PROLONGED QT INTERVAL : Confirmed by: Tomi Stapleton 18-Oct-2018 19:15:24
== END 2018-10-18 15:21 | disposition home or self-care (01) ==
LOC: ER 10:31
DX: R19.7 Diarrhea, unspecified (principal); E87.6 Hypokalemia; M25.561 Pain in right knee; E78.00 Pure hypercholesterolemia, unspecified; I10 Essential (primary) hypertension; Z86.73 Personal history of transient ischemic attack (TIA), and cerebral infarction without residual deficits; Z87.442 Personal history of urinary calculi; Z90.710 Acquired absence of both cervix and uterus
CPT/HCPCS: 93005; 99284; 96360; 36415; 83735; 85025; 80053; 85379; 73564; 93010; A9270 ×2; J7030

== ENCOUNTER → 2018-10-21 | Outpatient (CLI) | payer MEDICARE, MEDICAID ==
[2018-10-21 10:35] LABS: HEMATOCRIT 34.5 % (36.0-47.0); HEMOGLOBIN 12.3 g/dL (12.0-15.5); MEAN CORPUSCULAR HEMOGLOBIN 29.9 pg (27.0-33.4); MEAN CORPUSCULAR HGB CONC 35.6 g/dL (32.0-36.0); MEAN CORPUSCULAR VOLUME 84 fl (80-97); PLATELET COUNT 414 10^3/uL (150-450); RED BLOOD COUNT 4.11 10^6/uL (3.72-5.28); WHITE BLOOD COUNT 10.5 10^3/uL (4.0-10.5)
[2018-10-21 10:55] LABS: ANION GAP 16 (5-19); BLOOD UREA NITROGEN 22 mg/dL (7-20); CALCIUM 10.3 mg/dL (8.4-10.2); CARBON DIOXIDE 31 mmol/L (22-30); CHLORIDE 79 mmol/L (98-107); GLUCOSE 115 mg/dL (75-110); POTASSIUM 3.4 mmol/L (3.6-5.0); SODIUM 125.6 mmol/L (137-145)
[2018-10-21 11:16] LABS: APPEARANCE,URINE CLEAR; COLOR,URINE STRAW; GLUCOSE, URINE NEGATIVE (NEGATIVE)
[2018-10-21 11:17] LABS: BILIRUBIN,URINE NEGATIVE (NEGATIVE); KETONES,URINE NEGATIVE (NEGATIVE); NITRITE,URINE NEGATIVE (NEGATIVE); PROTEIN,URINE NEGATIVE (NEGATIVE); URINE SPECIFIC GRAVITY 1.009; UROBILINOGEN,URINE NEGATIVE mg/dL (<2.0)
[2018-10-21 11:18] LABS: LEUKOCYTE ESTERASE,URINE LARGE (NEGATIVE)
[2018-10-22 10:37] LABS: CREATININE URINE 67.9 mg/dL (Not Estab.); MICROALBUMIN URINE 5.1 ug/mL (Not Estab.)
== END ==
LOC: OD 08:54
PROVIDERS: ATTEND Physician Assistant Medical
DX: I15.9 Secondary hypertension, unspecified (principal)
CPT/HCPCS: 36415; 80048; 81001; 82043; 82570; 85027

== ENCOUNTER → 2018-10-24 | Outpatient (CLI) | payer MEDICARE, MEDICAID ==
[~2018-10-24] MED LIST changes: -BUPIVACAINE INJ/PF LIPOSOME/PF 266 MG/20 ML SDV INJ PRN; -CEFAZOLIN INJ 1 GM VIAL IV PRN; -IBUPROFEN 800 MG in DEXTROSE 5%-WATER 250 ML IV PRN; -LACTATED RINGERS 1000 ML IV PRN; -LANSOPRAZOLE 15 MG TAB.RAP.DR PO PRN; -LIDOCAINE 0.5% INJ-PF (5 MG/ML) 50 ML SDV SUBCUT PRN; +LIDOCAINE 1% INJ-PF (10 MG/ML) 30 ML SDV ONE; -OXYCODONE HCL SR 10 MG TABLET PO PRN; -TETRACAINE HCL/PF 20MG/2ML AMPULE (SPINAL) ONE; -VANCOMYCIN HCL 1,000 MG in DEXTROSE 5%-WATER 250 ML IV PRN
--- NOTE | 2018-10-24 11:59 | WOMENS IMAGING REPORT ---
EXAM DESCRIPTION: U/S BREAST UNILAT LIMITED COMPLETED DATE/TIME: 10/24/2018 11:11 am REASON FOR STUDY: N63.12 UNSPECIFIED LUMP IN THE RIGHT BREAST, UPPER INNER QUADRANT N63.12 UNSPECIF IED LUMP IN THE RIGHT BREAST, UPPER INNER ADOLFO COMPARISON: 11/20/2016 TECHNIQUE: Real-time and static grayscale imaging performed of the right breast targeted to the area of clinical/mammographic concern. Selected color Doppler images recorded. LIMITATIONS: None. FINDINGS: Patient scheduled for ultrasound-guided core biopsy. Lesion at 12 o'clock just anterior t o the implant is unchanged. A safe window could not be obtained for biopsy due to proximity of the i mplant. IMPRESSION: Safe window could not be obtained. BIRAD: 3 Probably benign finding. Initial short-interval follow-up suggested. RECOMMENDATION: RECOMMENDED FOLLOW-UP: Six-month short-term follow-up mammogram with magnification v iews of the calcifications. COMMENT: Findings were discussed with the patient. Also discussed option of breast MRI, however not ing that sensitivity for DCIS is unknown compared to mammography. Lesion is not amenable to stereota ctic biopsy due to depth limitations. The [employer] ([employer]) has developed recommendations for screening MRI of the breast s in certain patient populations, to be used in conjunction with mammography. Breast MRI surveillanc e may be appropriate for women with more than 20% lifetime risk of developing breast cancer as deter mined by genetic testing, significant family history of the disease, or history of mantle radiation f or Hodgkins Disease. ACR Practice Guidelines 2008. TECHNICAL DOCUMENTATION: JOB ID: [id number] [employer]- All Rights Reserved Reading location - IP/workstation name: [email or web address]
== END ==
LOC: WI 09:38 → EDSTATUS 11:20 → WI 11:22
PROVIDERS: ATTEND Internal Medicine
DX: N63.12 Unspecified lump in the right breast, upper inner quadrant (principal)
CPT/HCPCS: 76642; J3490

== ENCOUNTER → 2018-11-25 | Outpatient (CLI) | payer MEDICARE, MEDICAID ==
[2018-11-25 09:36] LABS: HEMATOCRIT 33.2 % (36.0-47.0); HEMOGLOBIN 11.4 g/dL (12.0-15.5); MEAN CORPUSCULAR HEMOGLOBIN 29.6 pg (27.0-33.4); MEAN CORPUSCULAR HGB CONC 34.4 g/dL (32.0-36.0); MEAN CORPUSCULAR VOLUME 86 fl (80-97); PLATELET COUNT 330 10^3/uL (150-450); RED BLOOD COUNT 3.85 10^6/uL (3.72-5.28); WHITE BLOOD COUNT 7.7 10^3/uL (4.0-10.5)
[2018-11-25 09:40] LABS: APPEARANCE,URINE SLIGHTLY-CLOUDY; BILIRUBIN,URINE NEGATIVE (NEGATIVE); COLOR,URINE YELLOW; GLUCOSE, URINE NEGATIVE (NEGATIVE); KETONES,URINE NEGATIVE (NEGATIVE); LEUKOCYTE ESTERASE,URINE MODERATE (NEGATIVE); NITRITE,URINE NEGATIVE (NEGATIVE); PROTEIN,URINE NEGATIVE (NEGATIVE); URINE SPECIFIC GRAVITY 1.008; UROBILINOGEN,URINE NEGATIVE mg/dL (<2.0)
[2018-11-25 09:55] LABS: ANION GAP 10 (5-19); BLOOD UREA NITROGEN 13 mg/dL (7-20); CALCIUM 9.9 mg/dL (8.4-10.2); CARBON DIOXIDE 31 mmol/L (22-30); CHLORIDE 94 mmol/L (98-107); GLUCOSE 84 mg/dL (75-110); POTASSIUM 3.9 mmol/L (3.6-5.0)
[2018-11-26 13:37] LABS: CREATININE URINE 53.1 mg/dL (Not Estab.); MICROALBUMIN URINE 6.1 ug/mL (Not Estab.)
== END ==
LOC: OD 08:53
PROVIDERS: ATTEND Physician Assistant Medical
DX: I10 Essential (primary) hypertension (principal)
CPT/HCPCS: 36415; 80048; 81001; 82043; 82570; 85027

== ENCOUNTER 2018-12-26 13:42 | Emergency (ER) | payer MEDICARE, MEDICAID ==
--- NOTE | 2018-12-26 13:57 | ER Document Report ---
ED Medical Screen (RME) - General Chief Complaint: Psych Problem Stated Complaint: IVC W/PAPERS Time Seen by Provider: 12/26/18 13:53 Primary Care Provider: JM DOUGLASS PA-C [Primary Care Provider] - Follow up as needed Mode of Arrival: Ambulatory Information source: Patient Notes: 62-year-old female presented to ED for IVC. Her mental health worker has taken out IVC paperwork on her. States that the patient had a knife and was threatening to kill herself. Patient states she was not really threatening to kill herself she had a steak knife. I have explained to the patient that she will need to have a complete evaluation done. I have greeted and performed a rapid initial assessment of this patient. A comprehensive ED assessment and evaluation of the patient, analysis of test results and completion of medical decision making process will be conducted by an additional ED providers. TRAVEL OUTSIDE OF THE [place] IN LAST 30 DAYS: No - Related Data Allergies/Adverse Reactions: hydrocodone [Hydrocodone] Allergy (Severe, Verified 12/26/18 13:44) sertraline HCl [From Zoloft] Allergy (Severe, Verified 12/26/18 13:44) hives, resp arrest propranolol HCl [From Inderal] Allergy (Intermediate, Verified 12/26/18 13:44) Hives ondansetron Allergy (Unknown, Verified 12/26/18 13:44) lamotrigine [From Lamictal] Allergy (Verified 12/26/18 13:44) propranolol Allergy (Verified 12/26/18 13:44) Past Medical History - Social History Family history: Reviewed & Not Pertinent - Past Medical History Cardiac Medical History: Reports: Hx Hypercholesterolemia, Hx Hypertension Pulmonary Medical History: Reports: Hx Asthma Neurological Medical History: Reports: Hx Cerebrovascular Accident, Hx Migraine Endocrine Medical History: Reports: Hx Hypothyroidism - Thyroid removed. Denies: Hx Graves' Disease, Hx Hyperthyroidism. Comment Only: Hx Diabetes Mellitus Type 2 - borderline diet controlled Renal/ Medical History: Reports: Hx Kidney Stones, Hx Ovarian Cysts. Denies: Hx End Stage Renal Disease, Hx Peritoneal Dialysis, Hx Pelvic Inflammatory Disease Malignancy Medical History: Denies: Hx Breast Cancer, Hx Cervical Cancer, Hx Ovarian Cancer GI Medical History: Reports: Hx Gastroesophageal Reflux Disease, Hx Irritable Bowel Musculoskeltal Medical History: Reports Hx Arthritis, Reports Hx Musculoskeletal Deformity, Reports Hx Musculoskeletal Trauma, Denies Hx Systemic Lupus Erythematosus Psychiatric Medical History: Reports: Hx Bipolar Disorder, Hx Depression, Hx Schizophrenia Denies: Hx Post Traumatic Stress Disorder Traumatic Medical History: Past Surgical History: Reports: Hx Abdominal Surgery - Ex Lap, Hx Section, Hx Gynecologic Surgery - hyst, Hx Hysterectomy, Hx Orthopedic Surgery - Right knee arthroplasty 07/29/17, Hx Thyroid Surgery, Hx TonsillectomyComment Only: Hx Appendectomy - Ex Lap - Immunizations Immunizations up to date: Yes Hx Diphtheria, Pertussis, Tetanus Vaccination: Yes History of Influenza Vaccine for 01/2017 - 06/2017 Season: Yes Influenza Administration Date for 01/2017 - 06/2017 Season: 01/13/17 Doctor's Discharge - Discharge Referrals: JM DOUGLASS PA-C [Primary Care Provider] - Follow up as needed
[2018-12-26 14:29] LABS: APPEARANCE,URINE CLEAR; BILIRUBIN,URINE NEGATIVE (NEGATIVE); COLOR,URINE STRAW; GLUCOSE, URINE NEGATIVE (NEGATIVE); KETONES,URINE NEGATIVE (NEGATIVE); LEUKOCYTE ESTERASE,URINE NEGATIVE (NEGATIVE); NITRITE,URINE NEGATIVE (NEGATIVE); PROTEIN,URINE NEGATIVE (NEGATIVE); URINE SPECIFIC GRAVITY 1.004; UROBILINOGEN,URINE NEGATIVE mg/dL (<2.0)
[2018-12-26 14:41] LABS: URINE AMPHETAMINES SCREEN NEGATIVE; URINE BARBITURATES SCREEN NEGATIVE; URINE BENZODIAZEPINES SCREEN UNCONFIRMED POSITIVE; URINE COCAINE SCREEN NEGATIVE; URINE MARIJUANA (THC) SCREEN NEGATIVE; URINE METHADONE SCREEN NEGATIVE; URINE PHENCYCLIDINE SCREEN NEGATIVE
[2018-12-26 17:22] LABS: ABSOLUTE BASOPHILS # (AUTO) 0.1 10^3/uL (0.0-0.2); ABSOLUTE EOSINOPHILS # (AUTO) 0.1 10^3/uL (0.0-0.6); ABSOLUTE MONOCYTES (AUTO) 0.5 10^3/uL (0.1-1.4); ABSOLUTE NEUT (AUTO) 6.5 10^3/uL (1.7-8.2); BASOPHILS % (AUTO) 1.3 % (0-2); EOSINOPHILS % (AUTO) 1.1 % (0-6); HEMOGLOBIN 12.8 g/dL (12.0-15.5); LYMPHOCYTES % (AUTO) 21.8 % (13-45); MEAN CORPUSCULAR HEMOGLOBIN 29.8 pg (27.0-33.4); MEAN CORPUSCULAR HGB CONC 34.5 g/dL (32.0-36.0); MEAN CORPUSCULAR VOLUME 86 fl (80-97); MONOCYTES % (AUTO) 5.6 % (3-13); PLATELET COUNT 404 10^3/uL (150-450); RED BLOOD COUNT 4.28 10^6/uL (3.72-5.28); RED CELL DISTRIBUTION WIDTH 13.7 % (11.5-14.0); SEGMENTED NEUTROPHILS % (AUTO) 70.2 % (42-78); TOTAL CELLS COUNTED % (AUTO) 100 %; WHITE BLOOD COUNT 9.2 10^3/uL (4.0-10.5)
[2018-12-26 17:43] LABS: ALBUMIN 4.6 g/dL (3.5-5.0); ALKALINE PHOSPHATASE 98 U/L (38-126); ANION GAP 13 (5-19); ASPARTATE AMINO TRANSFERASE 22 U/L (14-36); BILIRUBIN,DIRECT 0.2 mg/dL (0.0-0.4); BILIRUBIN,TOTAL 0.5 mg/dL (0.2-1.3); BLOOD UREA NITROGEN 19 mg/dL (7-20); CALCIUM 10.6 mg/dL (8.4-10.2); CARBON DIOXIDE 30 mmol/L (22-30); CHLORIDE 94 mmol/L (98-107); GLUCOSE 119 mg/dL (75-110); POTASSIUM 3.8 mmol/L (3.6-5.0); TOTAL PROTEIN 7.5 g/dL (6.3-8.2)
[2018-12-26 17:55] LABS: ACETAMINOPHEN < 10 ug/mL (10-30); ALCOHOL < 10 mg/dL (NONE DETECTED); SALICYLATE < 1.0 mg/dL (2.0-20.0)
--- NOTE | 2018-12-26 23:02 | EKG REPORT ---
SEVERITY:- ABNORMAL ECG - SINUS RHYTHM LEFT ATRIAL ABNORMALITY NONSPECIFIC T ABNORMALITIES, INFERIOR LEADS BORDERLINE PROLONGED QT INTERVAL : Confirmed by: Amarilys Mares MD 26-Dec-2018 23:02:22
[2018-12-26] MEDS ORDERED: (PENDING PHARMACY ID) (Oxycodone Hcl/Acetaminophen [Oxycodone-Acetaminophen 10-325] 1 TAB) PO PRN (23:54)
[2018-12-26] MEDS ORDERED: (PENDING PHARMACY ID) (Hydroxyzine Hcl [Atarax 25 Mg Tablet] 25 MG) PO PRN (23:54)
[2018-12-26] MEDS ORDERED: FUROSEMIDE 20 MG TABLET PO PRN (23:54)
[2018-12-27] MEDS ORDERED: HYDROXYZINE HCL 10 MG TABLET PO PRN (00:08)
--- NOTE | 2018-12-27 00:08 | ER Document Report ---
ED General - General Chief Complaint: Psych Problem Stated Complaint: IVC W/PAPERS Time Seen by Provider: 12/26/18 13:53 Primary Care Provider: JM DOUGLASS PA-C [ALLIED HEALTH PROFESSIONAL] - Follow up as needed Mode of Arrival: Ambulatory TRAVEL OUTSIDE OF THE [place] IN LAST 30 DAYS: No - HPI Notes: Patient is a 63-year-old female, brought into the emergency department for evaluation under involuntary commitment papers. Evidently she stated she was going to kill herself. Her plan was to stab her self. She states she is still suicidal. She states that she tried to commit suicide in the past, but is not very forthcoming with me in regards to what prompted this. She has had psychiatric hospitalization before. She denies any homicidal ideation. She denies any visual or auditory hallucinations. Pain at this time, but she states she does have chronic pain in her leg, secondary to end-stage arthritis and requires a joint replacement. - Related Data Allergies/Adverse Reactions: hydrocodone [Hydrocodone] Allergy (Severe, Verified 12/26/18 13:44) sertraline HCl [From Zoloft] Allergy (Severe, Verified 12/26/18 13:44) hives, resp arrest propranolol HCl [From Inderal] Allergy (Intermediate, Verified 12/26/18 13:44) Hives ondansetron Allergy (Unknown, Verified 12/26/18 13:44) lamotrigine [From Lamictal] Allergy (Verified 12/26/18 13:44) propranolol Allergy (Verified 12/26/18 13:44) Past Medical History - General Information source: Patient - Social History Smoking Status: Former Smoker Family History: Reviewed & Not Pertinent, Arthritis, CVA, Hyperlipidemia, Hypertension, Malignancy, Other Patient has suicidal ideation: Yes Patient has homicidal ideation: No - Past Medical History Cardiac Medical History: Reports: Hx Hypercholesterolemia, Hx Hypertension Pulmonary Medical History: Reports: Hx Asthma Neurological Medical History: Reports: Hx Cerebrovascular Accident, Hx Migraine Endocrine Medical History: Reports: Hx Hypothyroidism - Thyroid removed. Denies: Hx Graves' Disease, Hx Hyperthyroidism. Comment Only: Hx Diabetes Mellitus Type 2 - borderline diet controlled Renal/ Medical History: Reports: Hx Kidney Stones, Hx Ovarian Cysts. Denies: Hx End Stage Renal Disease, Hx Peritoneal Dialysis, Hx Pelvic Inflammatory Disease Malignancy Medical History: Reports: None. Denies: Hx Breast Cancer, Hx Cervical Cancer, Hx Ovarian Cancer GI Medical History: Reports: Hx Gastroesophageal Reflux Disease, Hx Irritable Bowel Musculoskeletal Medical History: Reports Hx Arthritis, Reports Hx Musculoskeletal Deformity, Reports Hx Musculoskeletal Trauma, Denies Hx Systemic Lupus Erythematosus Psychiatric Medical History: Reports: Hx Bipolar Disorder, Hx Depression, Hx Schizophrenia Denies: Hx Post Traumatic Stress Disorder Traumatic Medical History: Reports: None Infectious Medical History: Reports: None Past Surgical History: Reports: Hx Abdominal Surgery - Ex Lap, Hx Section, Hx Gynecologic Surgery - hyst, Hx Hysterectomy, Hx Orthopedic Surgery - Right knee arthroplasty 07/29/17, Hx Thyroid Surgery, Hx TonsillectomyComment Only: Hx Appendectomy - Ex Lap - Immunizations Immunizations up to date: Yes Hx Diphtheria, Pertussis, Tetanus Vaccination: Yes Hx Pneumococcal Vaccination: 12/15/15 Review of Systems - Review of Systems Constitutional: No symptoms reported EENT: No symptoms reported Cardiovascular: No symptoms reported Respiratory: No symptoms reported Gastrointestinal: No symptoms reported Genitourinary: No symptoms reported Musculoskeletal: See HPI Skin: No symptoms reported Neurological/Psychological: See HPI Physical Exam - Vital signs Vitals: Temp Pulse Resp BP Pulse Ox 98.1 F 110 H 16 171/104 H 100 12/26/18 13:57 12/26/18 13:57 12/26/18 13:57 12/26/18 13:57 12/26/18 13:57 - Notes Notes: 63-year-old female appears her stated age in no acute distress. She is resting comfortably in the bed, is drowsy but easily arouses to verbal stimulus. She is cooperative, but drowsy, follows commands intermittently. Vital signs reviewed, please refer to chart. Head is normocephalic, atraumatic. Pupils equal round, reactive to light. Neck is supple without meningismus. Heart is regular rate and rhythm. Lungs are clear to auscultation bilaterally. Abdomen is soft, nontender, normoactive bowel sounds throughout. Extremities without cyanosis, clubbing. Posterior calves are nontender. Peripheral pulses are equal. Skin is warm and dry. Patient avoids eye contact. Mildly flat affect. Course - Re-evaluation Re-evalutation: 12/27/18 00:07 Presents emergency department for evaluation. She was here under IVC papers for suicidal ideation. She states she is currently suicidal. She has had psychiatric hospitalization in the past. Her laboratory investigations failed to reveal any significant abnormalities. She is currently medically cleared. Await psychosocial evaluation tomorrow morning. - Vital Signs Vital signs: Temp Pulse Resp BP Pulse Ox 98.1 F 110 H 16 171/104 H 100 12/26/18 13:57 12/26/18 13:57 12/26/18 13:57 12/26/18 13:57 12/26/18 13:57 - Laboratory Result Diagrams: 12/26/18 17:00 12/26/18 17:00 Laboratory results interpreted by me: 12/26/18 17:00 Sodium 136.6 L Chloride 94 L Glucose 119 H Calcium 10.6 H Salicylates < 1.0 L Acetaminophen < 10 L - EKG Interpretation by Me Additional EKG results interpreted by me: 12/27/18 00:07 Sinus mechanism. Normal axis, no acute ST changes concerning for ischemia or infarction. Discharge - Discharge Clinical Impression: Suicidal ideation Condition: Stable Disposition: OTHER Referrals: JM DOUGLASS PA-C [ALLIED HEALTH PROFESSIONAL] - Follow up as needed
[2018-12-27] MEDS ORDERED: OXYCODONE-ACETAMINOPHEN 5-325 MG TABLET PO PRN (00:09)
[2018-12-27] MEDS ORDERED: OXYCODONE HCL IR 5 MG TABLET PO PRN (00:11)
[2018-12-27] MEDS ORDERED: CLONIDINE HCL 0.1 MG TABLET PO ONE (00:15)
[2018-12-27] MEDS ORDERED: METOPROLOL TARTRATE 50 MG TABLET PO ONE (00:30)
[2018-12-27] MEDS ORDERED: IBUPROFEN 800 MG TABLET PO ONE (00:30)
[2018-12-27] MEDS ORDERED: LEVOTHYROXINE SODIUM 0.1 MG TABLET PO SCH (06:00)
--- NOTE | 2018-12-27 09:31 | ER Document Report ---
Doctor's Note Notes: 12/27/18 09:31 63-year-old female who presents with suicidal ideations. Labs and vital signs as recorded. Blood pressure has improved. We have added on a TSH level. Awaiting psychiatric evaluation and disposition. 12/27/18 14:17 Patient's TSH level as recorded. Patient takes levothyroxine. This has been relayed to the staff at the accepting facility. We have added a free T3 and T4. Patient denies any medication changes. Patient is being transferred at this time to the facility.
[2018-12-27] MEDS ORDERED: CLONIDINE HCL 0.1 MG TABLET PO SCH (10:00)
[2018-12-27] MEDS ORDERED: HYDROCHLOROTHIAZIDE PO SCH (10:00)
[2018-12-27] MEDS ORDERED: IBUPROFEN 800 MG TABLET PO SCH (10:00)
[2018-12-27] MEDS ORDERED: AMLODIPINE PO SCH (10:00)
[2018-12-27] MEDS ORDERED: [UNRECOGNIZED DRUG - OTHER] PO SCH (10:00)
[2018-12-27] MEDS ORDERED: HYDROCHLOROTHIAZIDE 25 MG TABLET PO SCH (10:00)
[2018-12-27] MEDS ORDERED: AMLODIPINE BESYLATE 10 MG TABLET PO SCH (10:00)
[2018-12-27] MEDS ORDERED: OLMESARTAN PO SCH (10:00)
[2018-12-27] MEDS ORDERED: METOPROLOL TARTRATE 50 MG TABLET PO SCH (10:00)
[2018-12-27] MEDS ORDERED: LOSARTAN POTASSIUM 50 MG TABLET PO SCH (10:00)
[2018-12-27] MEDS ORDERED: BUSPIRONE HCL 10 MG TABLET PO SCH (12:15)
[2018-12-27] MEDS ORDERED: OLANZAPINE 2.5 MG TABLET PO SCH (12:15)
[2018-12-27] MEDS ORDERED: VENLAFAXINE HCL 37.5 MG CAP.SR.24H PO SCH (12:15)
[2018-12-27 13:27] VITALS: BP 135/83
[2018-12-27 15:05] LABS: FREE T3 3.89 pg/mL (2.77-5.27); FREE T4 (FREE THYROXINE) 2.2 ng/dL (0.78-2.19)
[2018-12-27] MEDS ORDERED: GABAPENTIN 300 MG CAPSULE PO SCH (22:00)
== END 2018-12-27 14:30 | disposition other institution (70) ==
LOC: ER 13:42
DX: Z04.6 Encounter for general psychiatric examination, requested by authority (principal); R45.851 Suicidal ideations; R40.0 Somnolence; M19.90 Unspecified osteoarthritis, unspecified site; J45.909 Unspecified asthma, uncomplicated; I10 Essential (primary) hypertension; E89.0 Postprocedural hypothyroidism; Z79.899 Other long term (current) drug therapy; Z88.5 Allergy status to narcotic agent; Z88.8 Allergy status to other drugs, medicaments and biological substances; Z87.891 Personal history of nicotine dependence
CPT/HCPCS: 93005; 36415; 84439; 80307 ×4; 84443; 85025; 80053; 81001; 84481; 93010; A9270 ×8; 99285; J3490

== ENCOUNTER 2019-02-09 22:31 | Observation (INO) | payer MEDICARE, MEDICAID ==
[2019-02-09] MEDS ORDERED: ASPIRIN 81 MG TABLET, CHEWABLE PO ONE (22:35)
--- NOTE | 2019-02-09 23:32 | RADIOLOGY REPORT (SQ) ---
EXAM DESCRIPTION: XR CHEST 1 VIEW COMPLETED DATE/TME: 02/09/2019 22:35 CLINICAL HISTORY: 63 years, Female, chest pain COMPARISON: 06/20/2017 chest NUMBER OF VIEWS: 1 TECHNIQUE: Portable chest LIMITATIONS: None. FINDINGS: The heart is enlarged but stable. Osteopenia. Biapical pleural thickening. Lungs are otherwise clear. No pneumothorax IMPRESSION: No acute cardiopulmonary process copyright 2010 [employer]- All Rights Reserved
[2019-02-09 23:46] LABS: ABSOLUTE MONOCYTES (AUTO) 0.8 10^3/uL (0.1-1.4); ABSOLUTE NEUT (AUTO) 7.3 10^3/uL (1.7-8.2); BASOPHILS % (AUTO) 0.4 % (0-2); EOSINOPHILS % (AUTO) 0.1 % (0-6); HEMATOCRIT 42.2 % (36.0-47.0); HEMOGLOBIN 14.6 g/dL (12.0-15.5); LYMPHOCYTES % (AUTO) 20.3 % (13-45); MEAN CORPUSCULAR HEMOGLOBIN 29.7 pg (27.0-33.4); MEAN CORPUSCULAR HGB CONC 34.5 g/dL (32.0-36.0); MEAN CORPUSCULAR VOLUME 86 fl (80-97); MONOCYTES % (AUTO) 7.5 % (3-13); PLATELET COUNT 398 10^3/uL (150-450); RED CELL DISTRIBUTION WIDTH 12.8 % (11.5-14.0); SEGMENTED NEUTROPHILS % (AUTO) 71.7 % (42-78); TOTAL CELLS COUNTED % (AUTO) 100 %; WHITE BLOOD COUNT 10.1 10^3/uL (4.0-10.5)
[2019-02-10 00:05] LABS: ALBUMIN 5.3 g/dL (3.5-5.0); ALKALINE PHOSPHATASE 113 U/L (38-126); ASPARTATE AMINO TRANSFERASE 40 U/L (14-36); BILIRUBIN,DIRECT 0.3 mg/dL (0.0-0.4); BILIRUBIN,TOTAL 0.7 mg/dL (0.2-1.3); BLOOD UREA NITROGEN 11 mg/dL (7-20); CALCIUM 11.9 mg/dL (8.4-10.2); CREATINE KINASE 233 U/L (30-135); GLUCOSE 130 mg/dL (75-110); POTASSIUM 3.2 mmol/L (3.6-5.0); TOTAL PROTEIN 8.6 g/dL (6.3-8.2)
[2019-02-10 00:10] LABS: ANION GAP 19 (5-19); CARBON DIOXIDE 23 mmol/L (22-30); CHLORIDE 91 mmol/L (98-107)
[2019-02-10] MEDS ORDERED: TRAMADOL HCL 50 MG TABLET PO ONE (00:15)
[2019-02-10] MEDS ORDERED: FUROSEMIDE 20 MG TABLET PO ONE (00:15)
[2019-02-10] MEDS ORDERED: METOPROLOL TARTRATE 50 MG TABLET PO ONE (00:15)
[2019-02-10 00:17] LABS: TROPONIN I < 0.012 ng/mL
--- NOTE | 2019-02-10 00:18 | ER Document Report ---
ED General - General Chief Complaint: Chest Pain Stated Complaint: CHEST PAIN Time Seen by Provider: 02/10/19 00:04 Notes: Patient is a 63-year-old female that comes to the emergency department for chief complaint of left-sided chest pain. Symptoms started this morning, she states the pain is sharp, over her left breast area and shoots up towards her left shoulder. She denies shortness of breath, nausea vomiting, fever/chills, abdominal pain, back pain. She denies injury. She states that she was diagnosed with a breast lump on the same side that she is worried about, she states she is waiting for biopsy to be performed. She also states that she is currently incarcerated, there is long enforcement at bedside, she states that she did not get her medications earlier today including 20 mg of Lasix, 50 mg of metoprolol tartrate (twice a day, had morning dose already), and 50 mg of tramadol. She states she got her other medications. She denies history of ND or family history of ND. She denies smoking or recreational drugs. TRAVEL OUTSIDE OF THE [place] IN LAST 30 DAYS: No - Related Data Allergies/Adverse Reactions: hydrocodone [Hydrocodone] Allergy (Severe, Verified 12/26/18 13:44) sertraline HCl [From Zoloft] Allergy (Severe, Verified 12/26/18 13:44) hives, resp arrest propranolol HCl [From Inderal] Allergy (Intermediate, Verified 12/26/18 13:44) Hives ondansetron Allergy (Unknown, Verified 12/26/18 13:44) lamotrigine [From Lamictal] Allergy (Verified 12/26/18 13:44) propranolol Allergy (Verified 12/26/18 13:44) Past Medical History - General Information source: Patient - Social History Smoking Status: Never Smoker Frequency of alcohol use: None Drug Abuse: None Lives with: Family Family History: Reviewed & Not Pertinent, Arthritis, CVA, Hyperlipidemia, Hypertension, Malignancy, Other Patient has suicidal ideation: No Patient has homicidal ideation: No - Past Medical History Cardiac Medical History: Reports: Hx Hypercholesterolemia, Hx Hypertension Pulmonary Medical History: Reports: Hx Asthma Neurological Medical History: Reports: Hx Cerebrovascular Accident, Hx Migraine Endocrine Medical History: Reports: Hx Hypothyroidism - Thyroid removed. Denies: Hx Graves' Disease, Hx Hyperthyroidism. Comment Only: Hx Diabetes Mellitus Type 2 - borderline diet controlled Renal/ Medical History: Reports: Hx Kidney Stones, Hx Ovarian Cysts. Denies: Hx End Stage Renal Disease, Hx Peritoneal Dialysis, Hx Pelvic Inflammatory Disease Malignancy Medical History: Denies: Hx Breast Cancer, Hx Cervical Cancer, Hx [place] Cancer GI Medical History: Reports: Hx Gastroesophageal Reflux Disease, Hx Irritable Bowel Musculoskeletal Medical History: Reports Hx Arthritis, Reports Hx Musculoskeletal Deformity, Reports Hx Musculoskeletal Trauma, Denies Hx Systemic Lupus Erythematosus Psychiatric Medical History: Reports: Hx Bipolar Disorder, Hx Depression, Hx Schizophrenia Denies: Hx Post Traumatic Stress Disorder Traumatic Medical History: Past Surgical History: Reports: Hx Abdominal Surgery - Ex Lap, Hx Section, Hx Gynecologic Surgery - hyst, Hx Hysterectomy, Hx Orthopedic Surgery - Right knee arthroplasty 07/29/17, Hx Thyroid Surgery, Hx TonsillectomyComment Only: Hx Appendectomy - Ex Lap - Immunizations Immunizations up to date: Yes Hx Diphtheria, Pertussis, Tetanus Vaccination: Yes Hx Pneumococcal Vaccination: 12/15/15 Review of Systems - Review of Systems Constitutional: No symptoms reported EENT: No symptoms reported Cardiovascular: See HPI Respiratory: No symptoms reported Gastrointestinal: No symptoms reported Genitourinary: No symptoms reported Female Genitourinary: No symptoms reported Musculoskeletal: No symptoms reported Skin: See HPI Hematologic/Lymphatic: No symptoms reported Neurological/Psychological: No symptoms reported Physical Exam - Vital signs Vitals: Resp Pulse Ox 25 H 98 02/09/19 22:37 02/09/19 22:37 - Notes Notes: GENERAL: Alert, interacts well. No acute distress. HEAD: Normocephalic, atraumatic. EYES: Pupils equal, round, and reactive to light. Extraocular movements intact. ENT: Oral mucosa moist, tongue midline. Oropharynx unremarkable. Airway patent. LUNGS: Clear to auscultation bilaterally, no wheezes, rales, or rhonchi. No respiratory distress. Tender to the left general chest wall/breast area. No noted erythema, swelling, induration, fluctuance. No severe tenderness. HEART: Regular rate and rhythm. No murmur ABDOMEN: Soft, non-tender. Non-distended. Bowel sounds present in all 4 quadrants. GENITOURINARY: Deferred EXTREMITIES: Moves all 4 extremities spontaneously. No edema, normal radial and dorsalis pedis pulses bilaterally. No cyanosis. BACK: no cervical, thoracic, lumbar midline tenderness. No saddle anesthesia, normal distal neurovascular exam. Moves all extremities in full range of motion. NEUROLOGICAL: Alert and oriented x3. Normal speech. Cranial nerves II through XII grossly intact. PSYCH: Patient easily becomes anxious or emotional SKIN: Warm, dry, normal turgor. No rashes or lesions noted. Course - Re-evaluation Re-evalutation: EKG unchanged from prior. Patient was initially tachycardic but after I gave her her reported dose of metoprolol that she missed her blood pressure and her heart rate normalized. She is also complaining of chest pain over the same area that she was told she had a cyst of the breast, this is supposed to be biopsied and this is pending, the area is not erythematous, swollen, fluctuant, or obvi ously infected. Patient has reproducible tenderness over the chest wall. Chest x-ray unremarkable. CBC unremarkable, chemistry nonspecific with mild hypokalemia, magnesium normal, potassium supplemented by mouth. Troponin negative, cycled and again negative. EKG cycled and unchanged. I discussed with Dr. Mccray. Patient has a heart score of 3 based on her age and risk factors. She also has a very atypical presentation. This appears to be chest wall/breast without signs of infection. We will repeat EKG and if this is normal patient will follow-up outpatient. Second EKG has actually changed, anterior leads with notably inverted T waves which is changed from prior. Patient still with intermittent symptoms. She is calm, she slept and was easily aroused, her vital signs are normalized after her other medications. I discussed with patient. Because of her heart score now being 4 with the EKG changes recommended admission. I did discuss with Dr. Mccray. Patient states agreement and appreciation with this plan. Discussed with Dr. Cai, patient accepted to telemetry observation. - Vital Signs Vital signs: Temp Pulse Resp BP Pulse Ox 98.3 F 16 105/77 96 02/09/19 22:43 02/10/19 06:16 02/10/19 06:16 02/10/19 06:16 - Laboratory Result Diagrams: 02/09/19 23:34 02/09/19 23:34 Laboratory results interpreted by me: 02/09/19 23:34 Sodium 133.0 L Potassium 3.2 L Chloride 91 L Glucose 130 H Calcium 11.9 H AST 40 H Creatine Kinase 233 H Total Protein 8.6 H Albumin 5.3 H - EKG Interpretation by Me Additional EKG results interpreted by me: EKG shows sinus tachycardia rate of 109, borderline left axis deviation, borderline prolonged QT interval. Flattened T waves anteriorly, borderline ST segment depression in leads V5 and V6, however this is not changed from prior. EKG was discussed with Dr. Mccray. Discharge - Discharge Clinical Impression: Chest wall pain, Acute electrocardiogram changes Chest pain Qualifiers: Chest pain type: unspecified Qualified Code(s): R07.9 - Chest pain, unspecified Condition: Stable Disposition: ADMITTED OBSERVATION Admitting Provider: [facility] Admitted: Telemetry
[2019-02-10] MEDS ORDERED: POTASSIUM CHLORIDE 10 MEQ CAPSULE.ER PO ONE (02:51)
[2019-02-10] MEDS ORDERED: INFLUENZA QUAD (6MOS+) 2019-20 VAC 0.5 ML SYR IM ONE (07:21)
--- NOTE | 2019-02-10 07:34 | EKG REPORT ---
SEVERITY:- ABNORMAL ECG - SINUS RHYTHM FIRST DEGREE AV BLOCK LEFT AXIS DEVIATION INCREASING REPOL ABNRM SUGGESTS ISCHEMIA, ANT-LAT LEADS SINCE 02/09/19 PROLONGED QT INTERVAL : Confirmed by: Mehrdad Curtis MD 10-Feb-2019 07:33:40
--- NOTE | 2019-02-10 07:35 | EKG REPORT ---
SEVERITY:- ABNORMAL ECG - SINUS TACHYCARDIA LEFT AXIS DEVIATION CONSIDER ANTERIOR INFARCT BORDERLINE PROLONGED QT INTERVAL NONSPECIFIC ST-T CHANGES ANTERIOR AND INFERIOR LEADS : Confirmed by: Mehrdad Curtis MD 10-Feb-2019 07:34:48
[2019-02-10] MEDS ORDERED: HYDROXYZINE PAMOATE 50 MG CAPSULE PO PRN (11:10)
[2019-02-10] MEDS ORDERED: FUROSEMIDE 20 MG TABLET PO PRN (11:10)
[2019-02-10] MEDS ORDERED: TRAMADOL HCL 50 MG TABLET PO PRN (11:10)
[2019-02-10] MEDS ORDERED: (PENDING PHARMACY ID) (Oxycodone Hcl/Acetaminophen [Oxycodone-Acetaminophen 10-325] 1 TAB) PO PRN (11:10)
[2019-02-10] MEDS: LEVOTHYROXINE SODIUM 0.025 MG TABLET PO SCH (12:30)
[2019-02-10] MEDS: PAROXETINE HCL 20 MG TABLET PO SCH (12:30)
[2019-02-10] MEDS: LEVOTHYROXINE SODIUM 0.1 MG TABLET PO SCH (12:30)
[2019-02-10] MEDS: METOPROLOL TARTRATE 50 MG TABLET PO SCH ×2 (12:31→22:22)
[2019-02-10] MEDS: AMLODIPINE BESYLATE 10 MG TABLET PO SCH (12:31)
[2019-02-10] MEDS: LOSARTAN POTASSIUM 50 MG TABLET PO SCH (12:31)
[2019-02-10] MEDS: HYDROCHLOROTHIAZIDE 25 MG TABLET PO SCH (12:31)
[2019-02-10] MEDS: OXYCODONE HCL IR 5 MG TABLET PO PRN ×2 (12:36→21:27)
[2019-02-10] MEDS: DIPHENOXYLATE HCL/ATROP SULF 2.5-0.025 MG TABLET PO PRN (12:36)
[2019-02-10] MEDS: OXYCODONE-ACETAMINOPHEN 5-325 MG TABLET PO PRN ×2 (12:37→21:21)
[2019-02-10] MEDS: DIAZEPAM 5 MG TABLET PO PRN (17:34)
[2019-02-10 19:38] LABS: CREATINE KINASE MB 1.64 ng/mL (<4.55)
[2019-02-10 19:39] LABS: TROPONIN I < 0.012 ng/mL
--- NOTE | 2019-02-10 20:46 | PDOC H&P ---
History of Present Illness Admission Date/PCP: 02/10/19 04:43 MARIKA BOTELLO MD History of Present Illness: KARLIE SERRANO is a 63 year old female, She came to the emergency room for evaluation of atypical chest pain, the chest pain is reproducible on palpation of the chest, so far 2 sets of cardiac enzymes negative for acute NE, the management physician is requesting that patient be admitted for evaluation and management Past Medical History Cardiac Medical History: Reports: Hyperlipidema, Hypertension Pulmonary Medical History: Reports: Asthma Neurological Medical History: Reports: Migraine Endocrine Medical History: Reports: Hypothyroidism - Thyroid removed Comment Only: Diabetes Mellitus Type 2 - borderline diet controlled Malignancy Medical History: GI Medical History: Reports: Gastroesophageal Reflux Disease Musculoskeltal Medical History: Reports: Arthritis Psychiatric Medical History: Reports: Bipolar Disorder, Depression Past Surgical History Past Surgical History: Reports: Section, Hysterectomy, Orthopedic Surgery - Right knee arthroplasty 07/29/17, Tonsillectomy Comment Only: Appendectomy - Ex Lap Social History Lives with: Family Smoking Status: Smoker,Current Status Unk Frequency of Alcohol Use: None Hx Recreational Drug Use: No Hx Prescription Drug Abuse: No - Advance Directive Resuscitation Status: Full Code Family History Family History: Reviewed & Not Pertinent, Arthritis, CVA, Hyperlipidemia, Hypertension, Malignancy, Other Parental Family History Reviewed: Yes Children Family History Reviewed: Yes Sibling(s) Family History Reviewed.: Yes Medication/Allergy Home Medications: Clonidine HCl [Catapres 0.1 mg Tablet] 0.1 mg PO QHS 08/03/17 Metoprolol Tartrate [Lopressor 50 mg Tablet] 50 mg PO Q12 08/03/17 Diazepam 10 mg PO Q8HP PRN 12/26/18 Eszopiclone 3 mg PO QHS 12/26/18 Furosemide [Lasix 20 mg Tablet] 20 mg PO DAILYP PRN 12/26/18 Ibuprofen [Motrin 800 mg Tablet] 800 mg PO Q12 12/26/18 Olmesartan/Amlodipin/Hcthiazid [Ffmbmop-Iwyitx-Frmn 40-10-25Mg] 1 each PO DAILY 12/26/18 Oxycodone HCl/Acetaminophen [Oxycodone-Acetaminophen 10-325] 1 tab PO Q8HP PRN 12/26/18 Diphenoxylate HCl/Atrop Sulf [Lomotil 2.5 mg Tablet] 1 tab PO Q6HP PRN 02/10/19 Hydroxyzine Pamoate [Vistaril 50 mg Capsule] 50 mg PO HSP PRN 02/10/19 Levothyroxine Sodium [Synthroid] 125 mcg PO Q6AM 02/10/19 Paroxetine HCl [Paxil 20 mg Tablet] 20 mg PO DAILY 02/10/19 Tramadol HCl [Ultram 50 mg Tablet] 50 mg PO Q8HP PRN 02/10/19 Allergies/Adverse Reactions: hydrocodone [Hydrocodone] Allergy (Severe, Verified 12/26/18 13:44) sertraline HCl [From Zoloft] Allergy (Severe, Verified 12/26/18 13:44) hives, resp arrest propranolol HCl [From Inderal] Allergy (Intermediate, Verified 12/26/18 13:44) Hives ondansetron Allergy (Unknown, Verified 12/26/18 13:44) lamotrigine [From Lamictal] Allergy (Verified 12/26/18 13:44) propranolol Allergy (Verified 12/26/18 13:44) Review of Systems Constitutional: ABSENT: chills, fever(s), headache(s), weight gain, weight loss Eyes: ABSENT: visual disturbances Ears: ABSENT: hearing changes Cardiovascular: PRESENT: chest pain. ABSENT: dyspnea on exertion, edema, orthropnea, palpitations Respiratory: ABSENT: cough, hemoptysis Gastrointestinal: ABSENT: abdominal pain, constipation, diarrhea, hematemesis, hematochezia, nausea, vomiting Genitourinary: ABSENT: dysuria, hematuria Musculoskeletal: ABSENT: joint swelling Integumentary: ABSENT: rash, wounds Neurological: ABSENT: abnormal gait, abnormal speech, confusion, dizziness, focal weakness, syncope Psychiatric: ABSENT: anxiety, depression, homidical ideation, suicidal ideation Endocrine: ABSENT: cold intolerance, heat intolerance, menstrual abnormalities, polydipsia, polyuria Hematologic/Lymphatic: ABSENT: easy bleeding, easy bruising, lymphadenopathy Physical Exam Vital Signs: Temp Pulse Resp BP Pulse Ox 98.0 F 75 20 128/83 H 97 02/10/19 11:32 02/10/19 14:00 02/10/19 11:32 02/10/19 11:32 02/10/19 11:32 Intake & Output 02/09/19 02/10/19 02/11/19 06:59 06:59 06:59 Intake Total 480 Balance 480 Weight 98.8 kg 92.2 kg General appearance: PRESENT: no acute distress, well-developed, well-nourished Head exam: PRESENT: atraumatic, normocephalic Eye exam: PRESENT: conjunctiva pink, EOMI, PERRLA Ear exam: PRESENT: normal external ear exam Mouth exam: PRESENT: moist, tongue midline Neck exam: PRESENT: full ROM Respiratory exam: PRESENT: chest wall tenderness Cardiovascular exam: PRESENT: RRR, +S1, +S2 Pulses: PRESENT: normal dorsalis pedis pul, +2 pedal pulses bilateral Vascular exam: PRESENT: normal capillary refill GI/Abdominal exam: PRESENT: normal bowel sounds, soft Rectal exam: PRESENT: deferred Neurological exam: PRESENT: alert, awake, oriented to person, oriented to place, oriented to time, oriented to situation, CN II-XII grossly intact Psychiatric exam: PRESENT: appropriate affect, normal mood Skin exam: PRESENT: dry, intact, warm Results Laboratory Results: 02/09/19 23:34 02/09/19 23:34 02/09/19 02/09/19 02/09/19 23:34 23:34 23:34 WBC 10.1 RBC 4.90 Hgb 14.6 Hct 42.2 MCV 86 MCH 29.7 MCHC 34.5 RDW 12.8 Plt Count 398 Seg Neutrophils % 71.7 Sodium 133.0 L Potassium 3.2 L Chloride 91 L Carbon Dioxide 23 Anion Gap 19 BUN 11 Creatinine 0.84 Est GFR ( Amer) > 60 Glucose 130 H Calcium 11.9 H Magnesium 2.0 Total Bilirubin 0.7 AST 40 H Alkaline Phosphatase 113 Total Protein 8.6 H Albumin 5.3 H 02/09/19 02/09/19 02/10/19 23:34 23:34 02:22 Creatine Kinase 233 H CK-MB (CK-2) 0.40 Troponin I < 0.012 < 0.012 02/10/19 02/10/19 18:54 18:54 Creatine Kinase 225 H CK-MB (CK-2) 1.64 Troponin I < 0.012 Impressions: Chest X-Ray 02/09/19 22:35 IMPRESSION: No acute cardiopulmonary process copyright 2011 [employer]- All Rights Reserved Assessment & Plan - Diagnosis (1) Chest pain Qualifiers: Chest pain type: unspecified Qualified Code(s): R07.9 - Chest pain, unspecified Is this a current diagnosis for this admission?: Yes Plan: Patient admitted for evaluation of chest pain
[2019-02-10] MEDS: IBUPROFEN 800 MG TABLET PO SCH (21:24)
[2019-02-10] MEDS ORDERED: CLONIDINE HCL 0.1 MG TABLET PO SCH (22:00)
[2019-02-10] MEDS ORDERED: ZOLPIDEM TARTRATE 5 MG TABLET PO SCH (22:00)
[2019-02-10] MEDS ORDERED: ESZOPICLONE 3 MG PO SCH (22:00)
[2019-02-11] MEDS: DIPHENOXYLATE HCL/ATROP SULF 2.5-0.025 MG TABLET PO PRN ×2 (04:22→09:46)
[2019-02-11] MEDS: LEVOTHYROXINE SODIUM 0.025 MG TABLET PO SCH (05:47)
[2019-02-11] MEDS: LEVOTHYROXINE SODIUM 0.1 MG TABLET PO SCH (05:48)
[2019-02-11] MEDS ORDERED: (PENDING PHARMACY ID) (Levothyroxine Sodium [Synthroid] 125 MCG) PO SCH (06:00)
[2019-02-11] MEDS ORDERED: [UNRECOGNIZED DRUG - OTHER] PO SCH (10:00)
[2019-02-11] MEDS ORDERED: AMLODIPINE PO SCH (10:00)
[2019-02-11] MEDS ORDERED: HYDROCHLOROTHIAZIDE PO SCH (10:00)
[2019-02-11] MEDS ORDERED: OLMESARTAN PO SCH (10:00)
[2019-02-11] MEDS ORDERED: DIPHENOXYLATE HCL/ATROP SULF 2.5-0.025 MG TABLET PO ONE (10:30)
[2019-02-11] MEDS: IBUPROFEN 800 MG TABLET PO SCH (12:48)
[2019-02-11] MEDS: METOPROLOL TARTRATE 50 MG TABLET PO SCH (12:48)
[2019-02-11] MEDS: AMLODIPINE BESYLATE 10 MG TABLET PO SCH (12:48)
[2019-02-11] MEDS: HYDROCHLOROTHIAZIDE 25 MG TABLET PO SCH (12:49)
[2019-02-11] MEDS: LOSARTAN POTASSIUM 50 MG TABLET PO SCH (12:49)
[2019-02-11] MEDS: PAROXETINE HCL 20 MG TABLET PO SCH (12:50)
[2019-02-11] MEDS: OXYCODONE HCL IR 5 MG TABLET PO PRN (13:10)
[2019-02-11] MEDS: OXYCODONE-ACETAMINOPHEN 5-325 MG TABLET PO PRN (13:11)
[2019-02-11] MEDS ORDERED: REGADENOSON INJ 0.4 MG/5 ML DISP.SYRIN IV ONE (14:05)
[2019-02-11] MEDS: DIAZEPAM 5 MG TABLET PO PRN (14:24)
--- NOTE | 2019-02-11 17:22 | PDOC DISCHARGE SUMMARY ---
Impression - Admit/DC Date/PCP Admission Date/Primary Care Provider: 02/10/19 04:43 MARIKA BOTELLO MD Discharge Date: 02/11/19 - Discharge Diagnosis (1) Chest pain Is this a current diagnosis for this admission?: Yes - Additional Information Resuscitation Status: Full Code Referrals: MARIKA BOTELLO MD [Primary Care Provider] - Follow up as needed Home Medications: Clonidine HCl [Catapres 0.1 mg Tablet] 0.1 mg PO QHS 08/03/17 Metoprolol Tartrate [Lopressor 50 mg Tablet] 50 mg PO Q12 08/03/17 Diazepam 10 mg PO Q8HP PRN 12/26/18 Eszopiclone 3 mg PO QHS 12/26/18 Furosemide [Lasix 20 mg Tablet] 20 mg PO DAILYP PRN 12/26/18 Ibuprofen [Motrin 800 mg Tablet] 800 mg PO Q12 12/26/18 Olmesartan/Amlodipin/Hcthiazid [Pawuski-Uhqfyt-Mslz 40-10-25Mg] 1 each PO DAILY 12/26/18 Oxycodone HCl/Acetaminophen [Oxycodone-Acetaminophen 10-325] 1 tab PO Q8HP PRN 12/26/18 Diphenoxylate HCl/Atrop Sulf [Lomotil 2.5 mg Tablet] 1 tab PO Q6HP PRN 02/10/19 Hydroxyzine Pamoate [Vistaril 50 mg Capsule] 50 mg PO HSP PRN 02/10/19 Levothyroxine Sodium [Synthroid] 125 mcg PO Q6AM 02/10/19 Paroxetine HCl [Paxil 20 mg Tablet] 20 mg PO DAILY 02/10/19 Tramadol HCl [Ultram 50 mg Tablet] 50 mg PO Q8HP PRN 02/10/19 History of Present Illiness History of Present Illness: KARLIE SERRANO is a 63 year old female, She came to the emergency room for evaluation of atypical chest pain, the chest pain is reproducible on palpation of the chest, so far 2 sets of cardiac enzymes negative for acute DC, the management physician is requesting that patient be admitted for evaluation and management Hospital Course Hospital Course: Patient was admitted for the management of chest pain, 3 sets of cardiac enzymes negative for DC, she underwent Cardiolite Lexiscan stress test, that was negative for ischemia Physical Exam Vital Signs: Temp Pulse Resp BP Pulse Ox 97.8 F 74 16 142/90 H 98 02/11/19 12:36 02/11/19 14:00 02/11/19 12:36 02/11/19 12:36 02/11/19 12:36 Intake & Output 02/10/19 02/11/19 02/12/19 06:59 06:59 06:59 Intake Total 1000 800 Balance 1000 800 Weight 98.8 kg 93.1 kg Results Laboratory Results: WBC 10.1 10^3/uL (4.0-10.5) 02/09/19 23:34 RBC 4.90 10^6/uL (3.72-5.28) 02/09/19 23:34 Hgb 14.6 g/dL (12.0-15.5) 02/09/19 23:34 Hct 42.2 % (36.0-47.0) 02/09/19 23:34 MCV 86 fl (80-97) 02/09/19 23:34 MCH 29.7 pg (27.0-33.4) 02/09/19 23:34 MCHC 34.5 g/dL (32.0-36.0) 02/09/19 23:34 RDW 12.8 % (11.5-14.0) 02/09/19 23:34 Plt Count 398 10^3/uL (150-450) 02/09/19 23:34 Lymph % (Auto) 20.3 % (13-45) 02/09/19 23:34 [place] % (Auto) 7.5 % (3-13) 02/09/19 23:34 Eos % (Auto) 0.1 % (0-6) 02/09/19 23:34 Baso % (Auto) 0.4 % (0-2) 02/09/19 23:34 Absolute Neuts (auto) 7.3 10^3/uL (1.7-8.2) 02/09/19 23:34 Absolute Lymphs (auto) 2.0 10^3/uL (0.5-4.7) 02/09/19 23:34 Absolute Monos (auto) 0.8 10^3/uL (0.1-1.4) 02/09/19 23:34 Absolute Eos (auto) 0.0 10^3/uL (0.0-0.6) 02/09/19 23:34 Absolute Basos (auto) 0.0 10^3/uL (0.0-0.2) 02/09/19 23:34 Seg Neutrophils % 71.7 % (42-78) 02/09/19 23:34 Sodium 133.0 mmol/L (137-145) L 02/09/19 23:34 Potassium 3.2 mmol/L (3.6-5.0) L 02/09/19 23:34 Chloride 91 mmol/L (98-107) L 02/09/19 23:34 Carbon Dioxide 23 mmol/L (22-30) 02/09/19 23:34 Anion Gap 19 (5-19) 02/09/19 23:34 BUN 11 mg/dL (7-20) 02/09/19 23:34 Creatinine 0.84 mg/dL (0.52-1.25) 02/09/19 23:34 Est GFR ( Amer) > 60 (>60) 02/09/19 23:34 Est GFR (MDRD) Non-Af > 60 (>60) 02/09/19 23:34 Glucose 130 mg/dL (75-110) H 02/09/19 23:34 Calcium 11.9 mg/dL (8.4-10.2) H 02/09/19 23:34 Magnesium 2.0 mg/dL (1.6-2.3) 02/09/19 23:34 Total Bilirubin 0.7 mg/dL (0.2-1.3) 02/09/19 23:34 Direct Bilirubin 0.3 mg/dL (0.0-0.4) 02/09/19 23:34 Neonat Total Bilirubin Not Reportable 02/09/19 23:34 Neonat Direct Bilirubin Not Reportable 02/09/19 23:34 Neonat Indirect Bili Not Reportable 02/09/19 23:34 AST 40 U/L (14-36) H 02/09/19 23:34 ALT 39 U/L (<35) 02/09/19 23:34 Alkaline Phosphatase 113 U/L (38-126) 02/09/19 23:34 Creatine Kinase 225 U/L (30-135) H 02/10/19 18:54 CK-MB (CK-2) 1.64 ng/mL (<4.55) 02/10/19 18:54 Troponin I < 0.012 ng/mL 02/10/19 18:54 Total Protein 8.6 g/dL (6.3-8.2) H 02/09/19 23:34 Albumin 5.3 g/dL (3.5-5.0) H 02/09/19 23:34 02/09/19 02/10/19 02/10/19 23:34 02:22 18:54 CK-MB (CK-2) 0.40 1.64 Troponin I < 0.012 < 0.012 < 0.012 Impressions: Chest X-Ray 02/09/19 22:35 IMPRESSION: No acute cardiopulmonary process copyright 2010 [employer]- All Rights Reserved Stroke Is this a Stroke Patient?: No Acute Heart Failure - Is this a Heart Failure Patient?: No
--- NOTE | 2019-02-11 18:08 | DRAGON STRESS TEST REPORT ---
Intravenous Lexiscan Cardiolite stress test using single photon emmision computerized tomography. Date of procedure: 02/11/2019. Ordering Provider: Dr. Cai. Patient's status In Patient Indication: Chest pain. Coronary risk factors: Age, hypertension, diabetes mellitus, and dyslipidemia. Resting EKG: Sinus Rhythm. Diffuse nonspecific ST-T changes. Stress EKG: No changes of ischemia. The patient had no chest pain or discomfort and there were no arrhythmias seen. Reason for termination: Protocol. Conclusions: Normal EKG and hemodynamic response to IV Lexiscan. Nuclear data: At rest the patient was given 14.91 millicuries of technetium 99m sestamibi injected intravenously. As per protocol rest non gated SPECT images were obtained. Subsequently the patient was given intravenous Lexiscan at a dose of 0.4 mg in 5 mL intravenously, followed by flush with normal saline. Subsequently the stress dose of 40.9 millicuries of technetium 99m sestamibi was injected intravenously. As per protocol stress gated images were obtained. Nuclear interpretation: Review of images showed that all segments of the myocardium had normal perfusion at rest, and normal perfusion post stress with IV Lexiscan. All segments of the myocardium had normal motion, contraction, and thickening by gated study. T. I D. ratio was as abnormal at 1.76. This is erroneous and not reliable. There is no transient ischemic dilatation of the left ventricle. Computer read rest, and stress left ventricular ejection fraction were 76 %, and 67 %, respectively. Conclusion: 1. There is no scintigraphic evidence of Lexiscan induced myocardial ischemia. 2. There is no scintigraphic evidence of myocardial infarction/scar. Recommendations: Aggressive risk factor modification, and treating the underlying co- morbidities. MTDD
[2019-02-11 19:21] VITALS: BP 111/83
== END 2019-02-11 20:00 | disposition home or self-care (01) ==
LOC: ER 22:31 → EH 02-10 04:43 → 5 02-10 06:52
PROVIDERS: ADMIT Internal Medicine; ATTEND Internal Medicine
DX: R07.89 Other chest pain (principal); R73.03 Prediabetes; I10 Essential (primary) hypertension; R00.0 Tachycardia, unspecified; E87.6 Hypokalemia; Z23 Encounter for immunization; E89.0 Postprocedural hypothyroidism; R94.31 Abnormal electrocardiogram [ECG] [EKG]; N60.02 Solitary cyst of left breast; Z79.899 Other long term (current) drug therapy; Z82.49 Family history of ischemic heart disease and other diseases of the circulatory system; Z90.49 Acquired absence of other specified parts of digestive tract; Z86.73 Personal history of transient ischemic attack (TIA), and cerebral infarction without residual deficits
CPT/HCPCS: 93005 ×2; 99285; 36415 ×2; 82553 ×2; 82550 ×2; 83735; 85025; 80053; 84484 ×2; 93017; 71045; 78452; 90686; 93010 ×2; G0378 ×2; A9500; J2785; A9270 ×29; Q9969; J3490

== ENCOUNTER → 2019-02-12 | Outpatient (CLI) | payer MEDICARE, MEDICAID ==
[2019-02-12 11:43] LABS: APPEARANCE,URINE CLOUDY; BILIRUBIN,URINE NEGATIVE (NEGATIVE); COLOR,URINE YELLOW; GLUCOSE, URINE NEGATIVE (NEGATIVE); KETONES,URINE NEGATIVE (NEGATIVE); LEUKOCYTE ESTERASE,URINE SMALL (NEGATIVE); NITRITE,URINE NEGATIVE (NEGATIVE); PROTEIN,URINE NEGATIVE (NEGATIVE); URINE SPECIFIC GRAVITY 1.013; UROBILINOGEN,URINE NEGATIVE mg/dL (<2.0)
[2019-02-12 13:21] LABS: ABSOLUTE BASOPHILS # (AUTO) 0.1 10^3/uL (0.0-0.2); ABSOLUTE EOSINOPHILS # (AUTO) 0.2 10^3/uL (0.0-0.6); ABSOLUTE LYMPHOCYTES (AUTO) 4.1 10^3/uL (0.5-4.7); ABSOLUTE MONOCYTES (AUTO) 0.8 10^3/uL (0.1-1.4); ABSOLUTE NEUT (AUTO) 4.7 10^3/uL (1.7-8.2); BASOPHILS % (AUTO) 1.3 % (0-2); EOSINOPHILS % (AUTO) 2.3 % (0-6); HEMATOCRIT 37.3 % (36.0-47.0); HEMOGLOBIN 12.8 g/dL (12.0-15.5); LYMPHOCYTES % (AUTO) 41.3 % (13-45); MEAN CORPUSCULAR HEMOGLOBIN 30.2 pg (27.0-33.4); MEAN CORPUSCULAR HGB CONC 34.3 g/dL (32.0-36.0); MEAN CORPUSCULAR VOLUME 88 fl (80-97); MONOCYTES % (AUTO) 7.9 % (3-13); PLATELET COUNT 355 10^3/uL (150-450); RED BLOOD COUNT 4.24 10^6/uL (3.72-5.28); RED CELL DISTRIBUTION WIDTH 12.7 % (11.5-14.0); SEGMENTED NEUTROPHILS % (AUTO) 47.2 % (42-78); TOTAL CELLS COUNTED % (AUTO) 100 %; WHITE BLOOD COUNT 9.9 10^3/uL (4.0-10.5)
[2019-02-12 13:42] LABS: ALKALINE PHOSPHATASE 80 U/L (38-126); ANION GAP 15 (5-19); ASPARTATE AMINO TRANSFERASE 37 U/L (14-36); BILIRUBIN,DIRECT 0.3 mg/dL (0.0-0.4); BILIRUBIN,TOTAL 0.4 mg/dL (0.2-1.3); BLOOD UREA NITROGEN 20 mg/dL (7-20); CALCIUM 10.4 mg/dL (8.4-10.2); CARBON DIOXIDE 26 mmol/L (22-30); CHLORIDE 94 mmol/L (98-107); GLUCOSE 87 mg/dL (75-110); POTASSIUM 3.7 mmol/L (3.6-5.0); URIC ACID 7.3 mg/dL (2.5-7.5)
[2019-02-13 09:37] LABS: MICROALBUMIN URINE 42.4 ug/mL (Not Estab.)
== END ==
LOC: OD 10:22
PROVIDERS: ATTEND Internal Medicine
DX: I10 Essential (primary) hypertension (principal)
CPT/HCPCS: 36415; 80053; 81001; 82043; 82570; 84550; 85025

== ENCOUNTER 2019-03-13 12:49 | Emergency (ER) | payer MEDICARE, MEDICAID ==
[2019-03-13 12:56] VITALS: BP 132/81
[2019-03-13] MEDS ORDERED: MUPIROCIN 2% OINTMENT 22 GM TP ONE (13:06)
--- NOTE | 2019-03-13 13:12 | ER Document Report ---
ED Hand/Wrist Injury - General Chief Complaint: Hand Injury Stated Complaint: LEFT HAND INJURY Time Seen by Provider: 03/13/19 13:04 Primary Care Provider: MARIKA BOTELLO MD [Primary Care Provider] - 03/16/19 Mode of Arrival: Ambulatory Information source: Patient Notes: 63-year-old female presented to ED with some kind of lesions to the left wrist and hand. She states it looks like a insect bite under her watch and on her hand Saturday. She states she did scratch it for a few days and then she stopped scratching and started using iodine triple antibiotic ointment on it and it is not getting better. She states she did quit you wearing her watch on that hand. States it is very painful at this time. TRAVEL OUTSIDE OF THE [place] IN LAST 30 DAYS: No - HPI Injury to: Wrist - Left Onset: Other - Saturday Where: Home Timing: Still present, Worse Quality of pain: Burning Severity: Moderate Pain Level: 4 Context: Other - Scaly rash - Related Data Allergies/Adverse Reactions: hydrocodone [Hydrocodone] Allergy (Severe, Verified 03/13/19 13:02) sertraline HCl [From Zoloft] Allergy (Severe, Verified 03/13/19 13:02) hives, resp arrest propranolol HCl [From Inderal] Allergy (Intermediate, Verified 03/13/19 13:02) Hives ondansetron Allergy (Unknown, Verified 03/13/19 13:02) lamotrigine [From Lamictal] Allergy (Verified 03/13/19 13:02) propranolol Allergy (Verified 03/13/19 13:02) Past Medical History - General Information source: Patient - Social History Smoking Status: Never Smoker Frequency of alcohol use: None Drug Abuse: None Lives with: Family Family History: Reviewed & Not Pertinent, Arthritis, CVA, Hyperlipidemia, Hypertension, Malignancy, Other Patient has suicidal ideation: No Patient has homicidal ideation: No - Past Medical History Cardiac Medical History: Reports: Hx Hypercholesterolemia, Hx Hypertension Pulmonary Medical History: Reports: Hx Asthma Neurological Medical History: Reports: Hx Cerebrovascular Accident, Hx Migraine Endocrine Medical History: Reports: Hx Hypothyroidism - Thyroid removedComment Only: Hx Diabetes Mellitus Type 2 - borderline diet controlled Renal/ Medical History: Reports: Hx Kidney Stones, Hx Ovarian Cysts Malignancy Medical History: Reports: None GI Medical History: Reports: Hx Gastroesophageal Reflux Disease, Hx Irritable Bowel Musculoskeletal Medical History: Reports Hx Arthritis, Reports Hx Musculoskeletal Deformity, Reports Hx Musculoskeletal Trauma Skin Medical History: Reports Hx Cellulitis Psychiatric Medical History: Reports: Hx Bipolar Disorder, Hx Depression, Hx Schizophrenia Traumatic Medical History: Reports: None Infectious Medical History: Reports: None Past Surgical History: Reports: Hx Abdominal Surgery - Ex Lap, Hx Section, Hx Gynecologic Surgery - hyst, Hx Hysterectomy, Hx Orthopedic Surgery - Right knee arthroplasty 07/29/17, Hx Thyroid Surgery, Hx TonsillectomyComment Onl y: Hx Appendectomy - Ex Lap - Immunizations Immunizations up to date: Yes Hx Diphtheria, Pertussis, Tetanus Vaccination: Yes Hx Pneumococcal Vaccination: 12/15/15 Review of Systems - Review of Systems Constitutional: No symptoms reported EENT: No symptoms reported Cardiovascular: No symptoms reported Respiratory: No symptoms reported Gastrointestinal: No symptoms reported Genitourinary: No symptoms reported Female Genitourinary: No symptoms reported Musculoskeletal: No symptoms reported Skin: Lesions - Scaly rash that is inflamed Hematologic/Lymphatic: No symptoms reported Neurological/Psychological: No symptoms reported -: Yes All other systems reviewed and negative Physical Exam - Vital signs Vitals: Temp Pulse Resp BP Pulse Ox 98.0 F 76 20 132/81 H 99 03/13/19 12:55 03/13/19 12:55 03/13/19 12:55 03/13/19 12:55 03/13/19 12:55 Interpretation: Normal - General General appearance: Appears well, Alert - HEENT Head: Normocephalic, Atraumatic Eyes: Normal Pupils: PERRL - Respiratory Respiratory status: No respiratory distress Chest status: Nontender Breath sounds: Normal Chest palpation: Normal - Cardiovascular Rhythm: Regular Heart sounds: Normal auscultation Murmur: No - Abdominal Inspection: Normal Distension: No distension Bowel sounds: Normal Tenderness: Nontender Organomegaly: No organomegaly - Back Back: Normal, Nontender - Extremities General upper extremity: Normal inspection, Nontender, Normal color, Normal ROM, Normal temperature General lower extremity: Normal inspection, Nontender, Normal color, Normal ROM, Normal temperature, Normal weight bearing. No: Juliana's sign - Neurological Neuro grossly intact: Yes Cognition: Normal Orientation: AAOx4 [place] Coma Scale Eye Opening: Spontaneous Vicky Coma Scale Verbal: Oriented [place] Coma Scale Motor: Obeys Commands [place] Coma Scale Total: 15 Speech: Normal Motor strength normal: LUE, RUE, LLE, RLE Sensory: Normal - Psychological Associated symptoms: Normal affect, Normal mood - Skin Skin Temperature: Warm Skin Moisture: Dry Skin Color: Normal Skin irregularity: Rash Location of irregularity: Extremities Character of irregularity: Erythematous Irregularity with: Scaling, Crusting, Inflammation Course - Vital Signs Vital signs: Temp Pulse Resp BP Pulse Ox 98.0 F 76 20 132/81 H 99 03/13/19 12:55 03/13/19 12:55 03/13/19 12:55 03/13/19 12:55 03/13/19 12:55 Discharge - Discharge Clinical Impression: Skin lesion left hand Condition: Stable Disposition: HOME, SELF-CARE Additional Instructions: You stated you started out with a small bump to the left hand that she scratched them became infected. Soap Cleansing Gently wash the wound daily using a mild soap (like Ivory, Phisoderm, Neutrogena). Use warm water, rubbing gently until all debris, ooze, and crusting have been washed from the wound. Allow to dry briefly (about 10 minutes) after cleaning. Repeat this cleansing at least three times a day for the first two days and then once or twice a day. Bactroban Ointment Bactroban is very effective against the germs that cause infection within the skin. It's useful for impetigo and other superficial infections. Deeper infections require antibiotics by mouth or by shot. Apply the medicine three times a day for one week, or longer if your doctor has advised it. Stop the medicine and call your doctor if you develop large blisters, severe itching, increasing pain, swelling, fever, or spreading redness. Acetaminophen Acetaminophen may be taken for pain relief or fever control. It's much safer than aspirin, offering a wider range of "safe" dosages. It is safe during . Some brand names are Tylenol, Panadol, Datril, Anacin 3, Tempra, and Liquiprin. Acetaminophen can be repeated every four hours. The following are maximum recommended dosages: WEIGHT Dose Drops Elixir Chewable(80mg) (LBS.) drprs=droppers tsp=teaspoon 6 40 mg .4 ml (1/2) 6-11 80 mg .8 ml (full) 1/2 tsp 1 tab 12-16 120 mg 1 1/2 drprs 3/4 tsp 1 1/2 tabs 17-23 160 mg 2 drprs 1 tsp 2 tabs 24-30 240 mg 3 drprs 1 1/2 tsp 3 tabs 30-35 320 mg 2 tsp 4 tabs 36-41 360 mg 2 1/4 tsp 4 1/2 tabs 42-47 400 mg 2 1/2 tsp 5 tabs 48-53 480 mg 3 tsp 6 tabs 54-59 520 mg 3 1/4 tsp 6 1/2 tabs 60-64 560 mg 3 1/2 tsp 7 tabs 65-70 600 mg 3 3/4 tsp 7 1/2 tabs 71-76 640 mg 4 tsp 8 tabs 77-82 720 mg 4 1/2 tsp 9 tabs 83-88 800 mg 5 tsp 10 tabs >89 pounds or adults 650 mg to 900 mg Acetaminophen can be repeated every four hours. Maximum daily dose not to exceed 4000 mg. These maximum recommended dosages are slightly higher than the dosages written on the product container, but these dosages are very safe and well below the toxic dosage for acetaminophen. Ibuprofen Ibuprofen is an excellent, safe drug for pain control. In addition, it has potent antiinflammatory effects which are beneficial, especially in the treatment of injuries, arthritis, or tendonitis. It's best to take ibuprofen with food. Persons with ulcer disease or allergy to aspirin should notify their physician of this before taking ibuprofen. Take the medication exactly as prescribed. Don't take additional doses unless instructed to do so by your doctor. If you develop wheezing, shortness of breath, hives, faintness, stomach pain, vomiting, or dark black stools, return for re-evaluation at once. If the area has not improved in 2 to 3 days stop using the Bactroban and use the Mycolog cream but continue to clean it with the soap and water 3 times a day rinse well and pat dry FOLLOW-UP CARE: If you have been referred to a physician for follow-up care, call the physicians office for an appointment as you were instructed or within the next two days. If you experience worsening or a significant change in your symptoms, notify the physician immediately or return to the Emergency Department at any time for re-evaluation. Prescriptions: Nystatin/Triamcin [Mycolog-II Ointment] 1 applic TP TID #1 tube Referrals: MARIKA BOTELLO MD [Primary Care Provider] - 03/16/19
== END 2019-03-13 13:35 | disposition home or self-care (01) ==
LOC: ER 12:49
DX: R21 Rash and other nonspecific skin eruption (principal); I10 Essential (primary) hypertension; J45.909 Unspecified asthma, uncomplicated; Z88.6 Allergy status to analgesic agent; Z88.5 Allergy status to narcotic agent; Z88.8 Allergy status to other drugs, medicaments and biological substances
CPT/HCPCS: 99283; A9270; J3490

== ENCOUNTER 2019-03-18 09:02 | Emergency (ER) | payer MEDICARE, MEDICAID ==
--- NOTE | 2019-03-18 09:29 | ER Document Report ---
ED Medical Screen (RME) - General Chief Complaint: Rash Stated Complaint: RASH Time Seen by Provider: 03/18/19 09:21 Primary Care Provider: MARIKA BOTELLO MD [Primary Care Provider] - Follow up as needed Mode of Arrival: Ambulatory Information source: Patient Notes: 63-year-old female with history of psoriasis presents emergency department with rash to her left wrist since last Saturday. She was evaluated in the emergency department for this on Saturday and treated with creams. She was also evaluated by Dr. Botello on Saturday. He referred her to dermatology but she is unable to get an appointment. She saw her psychiatrist test today and they told her to come back to the ER. Patient returns today because the rash is getting bigger and is oozing. She denies diabetes. She reports that the site did start with blisters. She has received the shingles vaccine. I have greeted and performed a rapid initial assessment of this patient. A comprehensive ED assessment and evaluation of the patient, analysis of test results and completion of the medical decision making process will be conducted by additional ED providers. Dictation of this chart was performed using voice recognition software; therefore, there may be some unintended grammatical errors. TRAVEL OUTSIDE OF THE [place] IN LAST 30 DAYS: No - Related Data Allergies/Adverse Reactions: hydrocodone [Hydrocodone] Allergy (Severe, Verified 03/18/19 09:20) sertraline HCl [From Zoloft] Allergy (Severe, Verified 03/18/19 09:20) hives, resp arrest propranolol HCl [From Inderal] Allergy (Intermediate, Verified 03/18/19 09:20) Hives ondansetron Allergy (Unknown, Verified 03/18/19 09:20) lamotrigine [From Lamictal] Allergy (Verified 03/18/19 09:20) propranolol Allergy (Verified 03/18/19 09:20) Home Medications: Bactroban Past Medical History - Social History Chew tobacco use (# tins/day): No Frequency of alcohol use: None Drug Abuse: None Family history: Reviewed & Not Pertinent - Past Medical History Cardiac Medical History: Reports: Hx Hypercholesterolemia, Hx Hypertension Pulmonary Medical History: Reports: Hx Asthma Neurological Medical History: Reports: Hx Cerebrovascular Accident, Hx Migraine Endocrine Medical History: Reports: Hx Hypothyroidism - Thyroid removed. Denies: Hx Graves' Disease, Hx Hyperthyroidism. Comment Only: Hx Diabetes Mellitus Type 2 - borderline diet controlled Renal/ Medical History: Reports: Hx Kidney Stones, Hx Ovarian Cysts. Denies: Hx End Stage Renal Disease, Hx Peritoneal Dialysis, Hx Pelvic Inflammatory Disease Malignancy Medical History: Denies: Hx Breast Cancer, Hx Cervical Cancer, Hx Ovarian Cancer GI Medical History: Reports: Hx Gastroesophageal Reflux Disease, Hx Irritable Bowel Musculoskeltal Medical History: Reports Hx Arthritis, Reports Hx Musculoskeletal Deformity, Reports Hx Musculoskeletal Trauma, Denies Hx Systemic Lupus Erythematosus Skin Medical History: Reports Hx Cellulitis Psychiatric Medical History: Reports: Hx Bipolar Disorder, Hx Depression, Hx Schizophrenia Denies: Hx Post Traumatic Stress Disorder Traumatic Medical History: Past Surgical History: Reports: Hx Abdominal Surgery - Ex Lap, Hx Section, Hx Gynecologic Surgery - hyst, Hx Hysterectomy, Hx Orthopedic Surgery - Right knee arthroplasty 07/29/17, Hx Thyroid Surgery, Hx TonsillectomyComment Only: Hx Appendectomy - Ex Lap - Immunizations Immunizations up to date: Yes Hx Diphtheria, Pertussis, Tetanus Vaccination: Yes Physical Exam - Vital signs Vitals: Temp Pulse Resp BP Pulse Ox 97.7 F 80 18 139/88 H 97 03/18/19 09:19 03/18/19 09:19 03/18/19 09:19 03/18/19 09:19 03/18/19 09:19 Course - Vital Signs Vital signs: Temp Pulse Resp BP Pulse Ox 97.7 F 80 18 139/88 H 97 03/18/19 09:21 03/18/19 09:21 03/18/19 09:21 03/18/19 09:21 03/18/19 09:21 Doctor's Discharge - Discharge Referrals: MARIKA BOTELLO MD [Primary Care Provider] - Follow up as needed
[2019-03-18 09:42] LABS: ABSOLUTE BASOPHILS # (AUTO) 0.1 10^3/uL (0.0-0.2); ABSOLUTE EOSINOPHILS # (AUTO) 0.4 10^3/uL (0.0-0.6); ABSOLUTE LYMPHOCYTES (AUTO) 3.4 10^3/uL (0.5-4.7); ABSOLUTE MONOCYTES (AUTO) 0.7 10^3/uL (0.1-1.4); ABSOLUTE NEUT (AUTO) 4.3 10^3/uL (1.7-8.2); BASOPHILS % (AUTO) 1.1 % (0-2); HEMATOCRIT 36.2 % (36.0-47.0); HEMOGLOBIN 12.3 g/dL (12.0-15.5); LYMPHOCYTES % (AUTO) 38.4 % (13-45); MEAN CORPUSCULAR HEMOGLOBIN 29.3 pg (27.0-33.4); MEAN CORPUSCULAR HGB CONC 34.1 g/dL (32.0-36.0); MEAN CORPUSCULAR VOLUME 86 fl (80-97); MONOCYTES % (AUTO) 8.4 % (3-13); PLATELET COUNT 433 10^3/uL (150-450); RED CELL DISTRIBUTION WIDTH 12.4 % (11.5-14.0); SEGMENTED NEUTROPHILS % (AUTO) 48.1 % (42-78); TOTAL CELLS COUNTED % (AUTO) 100 %; WHITE BLOOD COUNT 8.8 10^3/uL (4.0-10.5)
[2019-03-18 10:03] LABS: ALKALINE PHOSPHATASE 82 U/L (38-126); ANION GAP 14 (5-19); ASPARTATE AMINO TRANSFERASE 33 U/L (14-36); BILIRUBIN,DIRECT 0.2 mg/dL (0.0-0.4); BILIRUBIN,TOTAL 0.5 mg/dL (0.2-1.3); BLOOD UREA NITROGEN 18 mg/dL (7-20); CALCIUM 10.5 mg/dL (8.4-10.2); CARBON DIOXIDE 29 mmol/L (22-30); CHLORIDE 93 mmol/L (98-107); GLUCOSE 85 mg/dL (75-110); POTASSIUM 3.3 mmol/L (3.6-5.0); TOTAL PROTEIN 8.1 g/dL (6.3-8.2)
[2019-03-18] MEDS ORDERED: ACYCLOVIR 800 MG TABLET PO ONE (13:04)
[2019-03-18] MEDS ORDERED: CEPHALEXIN 500 MG CAPSULE PO ONE (13:04)
--- NOTE | 2019-03-18 13:12 | ER Document Report ---
HPI - HPI Time Seen by Provider: 03/18/19 09:21 Pain Level: 0 Context: Pleasant 63-year-old female presents the emergency department for a worsening rash on her left vulvar wrist and thenar eminence. She was seen here on 03/13 and prescribed topical Bactroban and topical nystatin but the rash has not improved. Patient states she is applying both simultaneously. Patient states that it started after she was wearing a watch. Patient states that it does itch and it was initially tingling with a little bit of pain. She states that there is a new lesion developing. No other complaints - REPRODUCTIVE Reproductive: DENIES: : Past Medical History - General Information source: Patient - Social History Smoking Status: Never Smoker Chew tobacco use (# tins/day): No Frequency of alcohol use: None Drug Abuse: None Family History: Reviewed & Not Pertinent, Arthritis, CVA, Hyperlipidemia, Hypertension, Malignancy, Other Patient has suicidal ideation: No Patient has homicidal ideation: No - Past Medical History Cardiac Medical History: Reports: Hx Hypercholesterolemia, Hx Hypertension Pulmonary Medical History: Reports: Hx Asthma Neurological Medical History: Reports: Hx Cerebrovascular Accident, Hx Migraine Endocrine Medical History: Reports: Hx Hypothyroidism - Thyroid removed. Denies: Hx Graves' Disease, Hx Hyperthyroidism. Comment Only: Hx Diabetes Mellitus Type 2 - borderline diet controlled Renal/ Medical History: Reports: Hx Kidney Stones, Hx Ovarian Cysts. Denies: Hx End Stage Renal Disease, Hx Peritoneal Dialysis, Hx Pelvic Inflammatory Disease Malignancy Medical History: Denies: Hx Breast Cancer, Hx Cervical Cancer, Hx Ovarian Cancer GI Medical History: Reports: Hx Gastroesophageal Reflux Disease, Hx Irritable Bowel Musculoskeletal Medical History: Reports Hx Arthritis, Reports Hx Musculoskeletal Deformity, Reports Hx Musculoskeletal Trauma, Denies Hx Systemic Lupus Erythematosus Skin Medical History: Reports Hx Cellulitis Psychiatric Medical History: Reports: Hx Bipolar Disorder, Hx Depression, Hx Schizophrenia Denies: Hx Post Traumatic Stress Disorder Traumatic Medical History: Past Surgical History: Reports: Hx Abdominal Surgery - Ex Lap, Hx Section, Hx Gynecologic Surgery - hyst, Hx Hysterectomy, Hx Orthopedic Surgery - Right knee arthroplasty 07/29/17, Hx Thyroid Surgery, Hx TonsillectomyComment Only: Hx Appendectomy - Ex Lap - Immunizations Immunizations up to date: Yes Hx Diphtheria, Pertussis, Tetanus Vaccination: Yes Hx Pneumococcal Vaccination: 12/15/15 Vertical Provider Document - CONSTITUTIONAL Notes: PHYSICAL EXAMINATION: Reviewed vital signs and charting by RN GENERAL: Alert, interacts well. No acute distress. HEAD: Normocephalic, atraumatic. EYES: Pupils equal and round. Extraocular movements intact. ENT: Oral mucosa moist, tongue midline. NECK: Full range of motion. Trachea midline. EXTREMITIES: Moves all 4 extremities spontaneously. No edema, No cyanosis. PSYCH: Normal affect, normal mood. SKIN: Warm, dry, normal turgor. 2 circular lesions approximately the size of a half dollar, one on the volar wrist the other on the dorsal thenar eminence, the one on the volar wrist has very mild central clearing with a small vesicular eruption - INFECTION CONTROL TRAVEL OUTSIDE OF THE [place] IN LAST 30 DAYS: No Course - Re-evaluation Re-evalutation: 03/18/19 13:13 Unclear on the rash but it does appear to be fungal like a ringworm but there is a pustular component to it, nystatin topical has not worked so I am going to prescribe her Keflex p.o. and Zovirax p.o. to cover for virus as well. I gave patient strict return precautions and told her to follow-up with her primary doctor in the next 3 to 5 days if her symptoms do not improve. Patient is on an extensive list of medications and I did an interaction field checker and there were no interactions between what I am prescribing her and the medication she is on. For discharge - Vital Signs Vital signs: Temp Pulse Resp BP Pulse Ox 97.7 F 80 18 139/88 H 97 03/18/19 09:21 03/18/19 09:21 03/18/19 09:21 03/18/19 09:21 03/18/19 09:21 - Laboratory Result Diagrams: 03/18/19 09:30 03/18/19 09:30 Laboratory results interpreted by me: 03/18/19 09:30 Sodium 135.9 L Potassium 3.3 L Chloride 93 L Est GFR ( Amer) 59 L Est GFR (MDRD) Non-Af 49 L Calcium 10.5 H Discharge - Discharge Clinical Impression: Rash and nonspecific skin eruption Condition: Good Disposition: HOME, SELF-CARE Additional Instructions: You were seen in the emergency department this afternoon for a rash that has not improved. It is unclear what exactly the type of rash is but because it is c ircular it looks like it is either fungal or it could potentially be viral. So, I am going to add an antiviral medication and also an antibiotic that you can take. You will take the antiviral, Zovirax, 3 times a day and the Keflex 4 times a day for 5 days. Please follow-up with Dr. Botello a 48-96 hours if your symptoms do not start to improve. Please return to the emergency department if you develop any adverse effects, acute shortness of breath, chest pain, or worsening rash with pain. Prescriptions: Cephalexin Monohydrate [Keflex 500 mg Capsule] 500 mg PO Q6H 5 Days capsule Acyclovir [Zovirax 800 mg Tablet] 800 mg PO TID #21 tablet Referrals: MARIKA BOTELLO MD [Primary Care Provider] - Follow up in 3-5 days
[2019-03-18 13:41] VITALS: BP 155/105
== END 2019-03-18 13:36 | disposition home or self-care (01) ==
LOC: ER 09:02
DX: R21 Rash and other nonspecific skin eruption (principal); I10 Essential (primary) hypertension; J45.909 Unspecified asthma, uncomplicated
CPT/HCPCS: 99283; 36415; 85025; 80053; A9270 ×2; J3490

== ENCOUNTER 2019-03-20 13:00 | Emergency (ER) | payer MEDICARE, MEDICAID ==
[2019-03-20] MEDS ORDERED: NORMAL SALINE 1000 ML 1,000 ML IV ONE ×2 (13:27→16:59)
[2019-03-20] MEDS ORDERED: KETOROLAC TROMETHAMINE INJ/PF 30 MG/1 ML SDV IV ONE (13:29)
[2019-03-20] MEDS ORDERED: LORAZEPAM INJ 2 MG/1 ML VIAL IV ONE (13:30)
[2019-03-20 13:55] LABS: ABSOLUTE BASOPHILS # (AUTO) 0.1 10^3/uL (0.0-0.2); ABSOLUTE LYMPHOCYTES (AUTO) 1.4 10^3/uL (0.5-4.7); ABSOLUTE MONOCYTES (AUTO) 0.3 10^3/uL (0.1-1.4); BASOPHILS % (AUTO) 0.6 % (0-2); HEMATOCRIT 45.5 % (36.0-47.0); LYMPHOCYTES % (AUTO) 12.8 % (13-45); MEAN CORPUSCULAR HEMOGLOBIN 29.4 pg (27.0-33.4); MEAN CORPUSCULAR HGB CONC 34.5 g/dL (32.0-36.0); MEAN CORPUSCULAR VOLUME 85 fl (80-97); MONOCYTES % (AUTO) 2.9 % (3-13); PLATELET COUNT 462 10^3/uL (150-450); RED BLOOD COUNT 5.34 10^6/uL (3.72-5.28); RED CELL DISTRIBUTION WIDTH 12.9 % (11.5-14.0); SEGMENTED NEUTROPHILS % (AUTO) 83.7 % (42-78); TOTAL CELLS COUNTED % (AUTO) 100 %; WHITE BLOOD COUNT 10.8 10^3/uL (4.0-10.5)
[2019-03-20] MEDS ORDERED: PROMETHAZINE HCL INJ 25 MG/1 ML VIAL IV ONE ×2 (13:55→16:15)
[2019-03-20 14:00] LABS: HEMOGLOBIN 15.7 g/dL (12.0-15.5)
[2019-03-20 14:09] LABS: ALBUMIN 5.8 g/dL (3.5-5.0); ALKALINE PHOSPHATASE 125 U/L (38-126); ASPARTATE AMINO TRANSFERASE 46 U/L (14-36); BILIRUBIN,DIRECT 0.3 mg/dL (0.0-0.4); BILIRUBIN,TOTAL 1.3 mg/dL (0.2-1.3); BLOOD UREA NITROGEN 11 mg/dL (7-20); CALCIUM 11.5 mg/dL (8.4-10.2); GLUCOSE 129 mg/dL (75-110); POTASSIUM 3.4 mmol/L (3.6-5.0); TOTAL PROTEIN 9.9 g/dL (6.3-8.2)
[2019-03-20 14:32] LABS: CARBON DIOXIDE 21 mmol/L (22-30); CHLORIDE 86 mmol/L (98-107)
[2019-03-20 14:34] LABS: ANION GAP 26 (5-19)
--- NOTE | 2019-03-20 15:12 | ER Document Report ---
Entered by SVETLANA GARRETT SCRIBE 03/20/19 1311 Acting as scribe for:JONNY IZAGUIRRE IV, MD ED GI/ - General Chief Complaint: Nausea/Vomiting Stated Complaint: NAUSEA/VOMITING Primary Care Provider: FREDDY DALTON DO [ACTIVE STAFF] - Follow up as needed MARIKA BOTELLO MD [Primary Care Provider] - Follow up as needed Notes: This 63 year old female patient presents to the emergency department today with complaints of nausea and vomiting. Patient reports that she was recently started on Keflex and acyclovir for two lesions that she has on her left hand. Patient reports that the crampy abdominal pain, nausea, and vomiting all began after starting the Keflex and acyclovir. Patient is prescribed large amounts of opiate pain medications and has been for several years. PCP: Doctor Botello TRAVEL OUTSIDE OF THE [place] IN LAST 30 DAYS: No - Related Data Allergies/Adverse Reactions: hydrocodone [Hydrocodone] Allergy (Severe, Verified 03/18/19 09:20) sertraline HCl [From Zoloft] Allergy (Severe, Verified 03/18/19 09:20) hives, resp arrest propranolol HCl [From Inderal] Allergy (Intermediate, Verified 03/18/19 09:20) Hives ondansetron Allergy (Unknown, Verified 03/18/19 09:20) lamotrigine [From Lamictal] Allergy (Verified 03/18/19 09:20) propranolol Allergy (Verified 03/18/19 09:20) Past Medical History - General Information source: [facility] Records - Social History Smoking Status: Former Smoker Cigarette use (# per day): No Lives with: Family Family History: Reviewed & Not Pertinent, Arthritis, CVA, Hyperlipidemia, Hypertension, Malignancy, Other - Past Medical History Cardiac Medical History: Reports: Hx Hypercholesterolemia, Hx Hypertension Pulmonary Medical History: Reports: Hx Asthma Neurological Medical History: Reports: Hx Cerebrovascular Accident, Hx Migraine Endocrine Medical History: Reports: Hx Hypothyroidism - Thyroid removedComment Only: Hx Diabetes Mellitus Type 2 - borderline diet controlled Renal/ Medical History: Reports: Hx Kidney Stones, Hx Ovarian Cysts Malignancy Medical History: GI Medical History: Reports: Hx Gastroesophageal Reflux Disease, Hx Irritable Bowel Musculoskeletal Medical History: Reports Hx Arthritis, Reports Hx Musculoskeletal Deformity, Reports Hx Musculoskeletal Trauma Skin Medical History: Reports Hx Cellulitis Psychiatric Medical History: Reports: Hx Bipolar Disorder, Hx Depression, Hx Schizophrenia Traumatic Medical History: Past Surgical History: Reports: Hx Abdominal Surgery - Ex Lap, Hx Appendectomy, Hx Section, Hx Hysterectomy, Hx Orthopedic Surgery - Right knee arthroplasty 07/29/17, Hx Thyroid Surgery, Hx Tonsillectomy - Immunizations Immunizations up to date: Yes Hx Diphtheria, Pertussis, Tetanus Vaccination: Yes Hx Pneumococcal Vaccination: 12/15/15 Review of Systems - Review of Systems Constitutional: No symptoms reported EENT: No symptoms reported Cardiovascular: No symptoms reported Respiratory: No symptoms reported Gastrointestinal: See HPI, Abdominal pain, Nausea, Vomiting Genitourinary: No symptoms reported Female Genitourinary: No symptoms reported Musculoskeletal: No symptoms reported Skin: No symptoms reported Hematologic/Lymphatic: No symptoms reported Neurological/Psychological: No symptoms reported -: Yes All other systems reviewed and negative Physical Exam - Vital signs Vitals: Temp Pulse Resp BP Pulse Ox 98.5 F 99 20 155/94 H 98 03/20/19 13:11 03/20/19 13:11 03/20/19 13:11 03/20/19 13:11 03/20/19 13:11 - Notes Notes: Physical Exam: General: Alert, appears well. HEENT: Normocephalic. Atraumatic. PERRL. Extraocular movements intact. Oropharynx clear. Neck: Supple. Non-tender. Respiratory: No respiratory distress. Clear and equal breath sounds bilaterally. Cardiovascular: Regular rate and rhythm. Abdominal: Normal Inspection. Non-tender. No distension. Normal Bowel Sounds. Back: No gross abnormalities. Extremities: Moves all four extremities. Upper extremities: Normal inspection. Normal ROM. Lower extremities: Normal inspection. No edema. Normal ROM. Neurological: Normal cognition. AAOx4. Normal speech. Psychological: Anxious. Skin: Warm. Dry. Normal color. Course - Vital Signs Vital signs: Temp Pulse Resp BP Pulse Ox 98.5 F 99 20 164/93 H 100 03/20/19 13:11 03/20/19 13:11 03/20/19 17:00 03/20/19 17:00 03/20/19 17:01 - Laboratory Result Diagrams: 03/20/19 13:40 03/20/19 13:40 Laboratory results interpreted by me: 03/20/19 03/20/19 03/20/19 13:40 13:40 17:28 WBC 10.8 H RBC 5.34 H Hgb 15.7 H D Plt Count 462 H Lymph % (Auto) 12.8 L [place] % (Auto) 2.9 L Absolute Neuts (auto) 9.0 H Seg Neutrophils % 83.7 H Sodium 133.3 L Potassium 3.4 L Chloride 86 L Carbon Dioxide 21 L Anion Gap 26 H Glucose 129 H Calcium 11.5 H AST 46 H Total Protein 9.9 H Albumin 5.8 H Urine Protein 100 H Urine Ketones 20 H Discharge - Discharge Clinical Impression: Adverse drug reaction, Skin rash, Nausea & vomiting Condition: Good Disposition: HOME, SELF-CARE Instructions: Car Sales Representative Prescriptions: Promethazine HCl 25 mg RC Q4H PRN #12 supp.rect PRN Reason: NAUSEA/VOMITING Referrals: MARIKA BOTELLO MD [Primary Care Provider] - Follow up as needed FREDDY DALTON DO [ACTIVE STAFF] - Follow up as needed I personally performed the services described in the documentation, reviewed and edited the documentation which was dictated to the scribe in my presence, and it accurately records my words and actions.
[2019-03-20] MEDS ORDERED: PROCHLORPERAZINE EDISYLATE INJ 10 MG/2 ML VIAL IM ONE (15:33)
[2019-03-20] MEDS ORDERED: PROCHLORPERAZINE EDISYLATE INJ 10 MG/2 ML VIAL IV ONE (15:56)
[2019-03-20] MEDS ORDERED: HYDRALAZINE HCL INJ/PF 20 MG/1 ML SDV IV ONE (16:14)
--- NOTE | 2019-03-20 17:26 | RADIOLOGY REPORT (SQ) ---
EXAM DESCRIPTION: CT ABD/PELVIS WITH IV ONLY COMPLETED DATE/TIME: 03/20/2019 5:02 pm REASON FOR STUDY: nausea, vomiting, epigastric pain COMPARISON: None. TECHNIQUE: CT scan of the abdomen and pelvis performed using helical scanning technique with dynamic intravenous contrast injection. No oral contrast. Images reviewed with lung, soft tissue, and bone windows. Reconstructed coronal and sagittal MPR images reviewed. Delayed images for evaluation of the urinary system also acquired. All images stored on PACS. All CT scanners at this facility use dose modulation, iterative reconstruction, and/or weight based d osing when appropriate to reduce radiation dose to as low as reasonably achievable (ALARA). [facility]: Dose Right [facility]: CareDose [facility]: Dose Right [facility]: Teradose 4D [facility]: Able Device CONTRAST TYPE AND DOSE: contrast/concentration: Isovue 350.00 mg/ml; Total Contrast Delivered: 100.0 ml; Total Saline Delivered: 22.0 ml RENAL FUNCTION: BUN 11 creatinine 0.72 RADIATION DOSE: CT Rad equipment meets quality standard of care and radiation dose reduction techniq ues were employed. CTDIvol: 13.4 - 17.0 mGy. DLP: 1619 mGy-cm.. LIMITATIONS: None. FINDINGS: LOWER CHEST: No significant findings. No nodules or infiltrates. LIVER: Normal size. No masses. No dilated ducts. SPLEEN: Normal size. No focal lesions. PANCREAS: No masses. No significant calcifications. No adjacent inflammation or peripancreatic fluid collections. Pancreatic duct not dilated. GALLBLADDER: No identified stones by CT criteria. No inflammatory changes to suggest cholecystitis. ADRENAL GLANDS: No significant masses or asymmetry. RIGHT KIDNEY AND URETER: No solid masses. No significant calcifications. No hydronephrosis or hyd roureter. LEFT KIDNEY AND URETER: No solid masses. No significant calcifications. No hydronephrosis or hydr oureter. AORTA AND VESSELS: No aneurysm. No dissection. Renal arteries, SMA, celiac without stenosis. RETROPERITONEUM: No retroperitoneal adenopathy, hemorrhage or masses. BOWEL AND PERITONEAL CAVITY: No masses or inflammatory changes. No free fluid or peritoneal masses. APPENDIX: Normal. PELVIS: No mass. No free fluid. Normal bladder. ABDOMINAL WALL: No masses. No hernias. BONES: No significant or acute findings. OTHER: No other significant finding. IMPRESSION: NO SIGNIFICANT OR ACUTE FINDING IN THE ABDOMEN OR PELVIS ON CT SCAN WITH IV CONTRAST. TECHNICAL DOCUMENTATION: JOB ID: [id number] Quality ID # [id number]: Final reports with documentation of one or more dose reduction techniques (e.g., Au tomated exposure control, adjustment of the mA and/or kV according to patient size, use of iterative reconstruction technique) 2010 [employer]- All Rights Reserved Reading location - IP/workstation name: [email or web address]
[2019-03-20 18:02] LABS: APPEARANCE,URINE CLEAR; BILIRUBIN,URINE NEGATIVE (NEGATIVE); COLOR,URINE YELLOW; GLUCOSE, URINE NEGATIVE (NEGATIVE); KETONES,URINE 20 mg/dL (NEGATIVE); LEUKOCYTE ESTERASE,URINE NEGATIVE (NEGATIVE); NITRITE,URINE NEGATIVE (NEGATIVE); PROTEIN,URINE 100 mg/dL (NEGATIVE); URINE SPECIFIC GRAVITY 1.031; UROBILINOGEN,URINE NEGATIVE mg/dL (<2.0)
[2019-03-20 18:26] LABS: URINE AMPHETAMINES SCREEN NEGATIVE; URINE BARBITURATES SCREEN NEGATIVE; URINE COCAINE SCREEN NEGATIVE; URINE METHADONE SCREEN NEGATIVE; URINE PHENCYCLIDINE SCREEN NEGATIVE
[2019-03-20 18:27] LABS: URINE BENZODIAZEPINES SCREEN UNCONFIRMED POSITIVE; URINE MARIJUANA (THC) SCREEN UNCONFIRMED POSITIVE
[2019-03-20] MEDS ORDERED: NALBUPHINE HCL INJ 10 MG/1 ML AMPULE INJ ONE (18:34)
[2019-03-20] MEDS ORDERED: MORPHINE SULFATE 10 MG/ML INJ IV ONE (18:50)
[2019-03-20 19:31] VITALS: BP 179/115
== END 2019-03-20 19:31 | disposition home or self-care (01) ==
LOC: ER 13:00
DX: R11.2 Nausea with vomiting, unspecified (principal); R10.9 Unspecified abdominal pain; R21 Rash and other nonspecific skin eruption; T50.915A Adverse effect of multiple unspecified drugs, medicaments and biological substances, initial encounter; Z88.6 Allergy status to analgesic agent; Z79.891 Long term (current) use of opiate analgesic; E78.00 Pure hypercholesterolemia, unspecified; I10 Essential (primary) hypertension; Z86.73 Personal history of transient ischemic attack (TIA), and cerebral infarction without residual deficits; Z90.710 Acquired absence of both cervix and uterus
CPT/HCPCS: 96376; 99284; 96361; 96374; 96375; 36415; 83690; 85025; 80053; 81001; 80307; 74177; J0360; J1885; J2270; J2060; J0780; J2550; J7030

== ENCOUNTER 2019-09-26 05:21 | Emergency (ER) | payer MEDICARE, MEDICAID ==
[2019-09-26] MEDS ORDERED: KETOROLAC TROMETHAMINE 60 MG/2 ML SDV IM ONE (06:06)
--- NOTE | 2019-09-26 06:10 | ER Document Report ---
ED General - General Chief Complaint: Knee Pain Stated Complaint: RIGHT KNEE PAIN, BACK PAIN Primary Care Provider: MARIKA BOTELLO MD [Primary Care Provider] - Follow up as needed Notes: Patient is a 63-year-old -Welsh female with past medical history of right total knee arthroplasty who is in chronic pain management who presents today with a chief complaint of needing a Toradol shot. The patient reports that she has her chronic home medications but every 2 to 3 months she is supposed to get a Toradol shot which helps her tremendously. She states she tried to go get one yesterday but the office closed before she could make it. She states the pain is very bothersome so she decided to come here to get the Toradol shot instead. She denies any history of any kidney problems. States that she always tolerates the injection well. She denies any other new pain, complaints or concerns at this time. TRAVEL OUTSIDE OF THE [place] IN LAST 30 DAYS: No - Related Data Allergies/Adverse Reactions: hydrocodone [Hydrocodone] Allergy (Severe, Verified 03/18/19 09:20) sertraline HCl [From Zoloft] Allergy (Severe, Verified 03/18/19 09:20) hives, resp arrest propranolol HCl [From Inderal] Allergy (Intermediate, Verified 03/18/19 09:20) Hives ondansetron Allergy (Unknown, Verified 03/18/19 09:20) lamotrigine [From Lamictal] Allergy (Verified 03/18/19 09:20) propranolol Allergy (Verified 03/18/19 09:20) Home Medications: valium, clonidine, oxycodone, Past Medical History - Social History Smoking Status: Former Smoker Family History: Reviewed & Not Pertinent, Arthritis, CVA, Hyperlipidemia, Hypertension, Malignancy, Other Patient has homicidal ideation: No - Past Medical History Cardiac Medical History: Reports: Hx Hypercholesterolemia, Hx Hypertension Pulmonary Medical History: Reports: Hx Asthma Neurological Medical History: Reports: Hx Cerebrovascular Accident, Hx Migraine Endocrine Medical History: Reports: Hx Hypothyroidism - Thyroid removed. Denies: Hx Graves' Disease, Hx Hyperthyroidism. Comment Only: Hx Diabetes Mellitus Type 2 - borderline diet controlled Renal/ Medical History: Reports: Hx Kidney Stones, Hx Ovarian Cysts. Denies: Hx End Stage Renal Disease, Hx Peritoneal Dialysis, Hx Pelvic Inflammatory Disease Malignancy Medical History: Denies: Hx Breast Cancer, Hx Cervical Cancer, Hx Ovarian Cancer GI Medical History: Reports: Hx Gastroesophageal Reflux Disease, Hx Irritable Bowel Musculoskeletal Medical History: Reports Hx Arthritis, Reports Hx Musculoskeletal Deformity, Reports Hx Musculoskeletal Trauma, Denies Hx Systemic Lupus Erythematosus Skin Medical History: Reports Hx Cellulitis Psychiatric Medical History: Reports: Hx Bipolar Disorder, Hx Depression, Hx Schizophrenia Denies: Hx Post Traumatic Stress Disorder Traumatic Medical History: Past Surgical History: Reports: Hx Abdominal Surgery - Ex Lap, Hx Appendectomy, Hx Section, Hx Gynecologic Surgery - hyst, Hx Hysterectomy, Hx Orthopedic Surgery - Right knee arthroplasty 07/29/17, Hx Thyroid Surgery, Hx Tonsillectomy - Immunizations Immunizations up to date: Yes Hx Diphtheria, Pertussis, Tetanus Vaccination: Yes Hx Pneumococcal Vaccination: 12/15/15 Review of Systems - Review of Systems Musculoskeletal: Joint pain -: Yes All other systems reviewed and negative Physical Exam - Vital signs Vitals: Temp Pulse Resp BP Pulse Ox 97.9 F 82 16 149/85 H 100 09/26/19 05:26 09/26/19 05:26 09/26/19 05:26 09/26/19 05:26 09/26/19 05:26 - General General appearance: Appears well, Alert - Respiratory Respiratory status: No respiratory distress Chest status: Nontender Breath sounds: Normal Chest palpation: Normal - Cardiovascular Rhythm: Regular Heart sounds: Normal auscultation - Extremities General upper extremity: Normal inspection, Nontender, Normal color, Normal ROM, Normal temperature General lower extremity: Normal inspection, Nontender, Normal color, Normal ROM, Normal temperature, Normal weight bearing. No: Juliana's sign - Neurological Neuro grossly intact: Yes Cognition: Normal Orientation: AAOx4 Vicky Coma Scale Eye Opening: Spontaneous Vicky Coma Scale Verbal: Oriented [place] Coma Scale Motor: Obeys Commands Vicky Coma Scale Total: 15 Speech: Normal Cerebellar coordination: Other - Walks with a four-point cane at baseline Motor strength normal: LUE, RUE, LLE, RLE Sensory: Normal - Psychological Associated symptoms: Normal affect, Normal mood - Skin Skin Temperature: Warm Skin Moisture: Dry Skin Color: Normal Course - Re-evaluation Re-evalutation: 09/26/19 06:08 Patient with Toradol IM. She is stable and appropriate for discharge and outpatient follow-up. She will call her pain doctor to inform them of her injection here today. Advise she return here any ER immediately with any new, persistent or worsening symptoms. - Vital Signs Vital signs: Temp Pulse Resp BP Pulse Ox 97.9 F 82 16 149/85 H 100 09/26/19 05:26 09/26/19 05:26 09/26/19 05:26 09/26/19 05:09/26/19 05:26 Discharge - Discharge Clinical Impression: Encounter for medication administration Chronic pain Qualifiers: Chronic pain type: other chronic pain Qualified Code(s): G89.29 - Other chronic pain Condition: Stable Disposition: HOME, SELF-CARE Instructions: Ice & Elevation ([facility]) Additional Instructions: Follow-up with your regular doctor in 2 to 3 days for reevaluation. Return here or any ER immediately with any new, persistent or worsening symptoms. Referrals: MARIKA BOTELLO MD [Primary Care Provider] - Follow up as needed
[2019-09-26 06:37] VITALS: BP 105/71
== END 2019-09-26 06:36 | disposition home or self-care (01) ==
LOC: ER 05:21
DX: Z51.81 Encounter for therapeutic drug level monitoring (principal); G89.29 Other chronic pain; M25.561 Pain in right knee; M54.9 Dorsalgia, unspecified; Z79.899 Other long term (current) drug therapy; Z88.8 Allergy status to other drugs, medicaments and biological substances; Z87.891 Personal history of nicotine dependence; I10 Essential (primary) hypertension; J45.909 Unspecified asthma, uncomplicated; E11.9 Type 2 diabetes mellitus without complications
CPT/HCPCS: 99281; 96372; J1885

== ENCOUNTER 2019-11-01 10:22 | Emergency (ER) | payer MEDICARE, MEDICAID ==
[2019-11-01] MEDS ORDERED: KETOROLAC TROMETHAMINE 60 MG/2 ML SDV IM ONE (10:41)
--- NOTE | 2019-11-01 10:42 | ER Document Report ---
HPI - HPI Patient complains to provider of: Right-sided sciatica Time Seen by Provider: 11/01/19 10:38 Pain Level: 4 Context: 63-year-old female past medical history significant for hypertension, asthma, hyperlipidemia, hypothyroidism, chronic sciatica, chronic pain followed by pain management presents to the emergency room requesting a Toradol shot. Patient states when her sciatica flares up which is usually once a month she normally gets a sciatica shot from pain management however they are closed today. She denies any recent trauma or injury. No loss control of her bowels or bladder. No saddle anesthesia. States pain does radiate down her right leg. Associated Symptoms: None Exacerbated by: Movement, Walking Relieved by: Denies Similar symptoms previously: Yes - History of frequent sciatica Recently seen / treated by doctor: No - ROS Systems Reviewed and Negative: Yes All other systems reviewed and negative - CONSTITUTIONAL Constitutional: DENIES: Fever, Chills - NEURO Neurology: DENIES: Weakness - CARDIOVASCULAR Cardiovascular: DENIES: Chest pain - RESPIRATORY Respiratory: DENIES: Trouble Breathing, Coughing - URINARY Urinary: DENIES: Dysuria, Urgency, Frequency - REPRODUCTIVE Reproductive: DENIES: : - MUSCULOSKELETAL Musculoskeletal: REPORTS: Back Pain - DERM Skin Color: Normal Skin Problems: None Past Medical History - General Information source: Patient - Social History Smoking Status: Never Smoker Frequency of alcohol use: None Drug Abuse: None Family History: Reviewed & Not Pertinent, Arthritis, CVA, Hyperlipidemia, Hypertension, Malignancy, Other - Past Medical History Cardiac Medical History: Reports: Hx Hypercholesterolemia, Hx Hypertension Pulmonary Medical History: Reports: Hx Asthma Neurological Medical History: Reports: Hx Cerebrovascular Accident, Hx Migraine Endocrine Medical History: Reports: Hx Hypothyroidism - Thyroid removed. Denies: Hx Graves' Disease, Hx Hyperthyroidism. Comment Only: Hx Diabetes Mellitus Type 2 - borderline diet controlled Renal/ Medical History: Reports: Hx Kidney Stones, Hx Ovarian Cysts. Denies: Hx End Stage Renal Disease, Hx Peritoneal Dialysis, Hx Pelvic Inflammatory Disease Malignancy Medical History: Denies: Hx Breast Cancer, Hx Cervical Cancer, Hx Ovarian Cancer GI Medical History: Reports: Hx Gastroesophageal Reflux Disease, Hx Irritable Bowel Musculoskeletal Medical History: Reports Hx Arthritis, Reports Hx Musculoskeletal Deformity, Reports Hx Musculoskeletal Trauma, Denies Hx Systemic Lupus Erythematosus Skin Medical History: Reports Hx Cellulitis Psychiatric Medical History: Reports: Hx Bipolar Disorder, Hx Depression, Hx Schizophrenia Denies: Hx Post Traumatic Stress Disorder Traumatic Medical History: Past Surgical History: Reports: Hx Abdominal Surgery - Ex Lap, Hx Appendectomy, Hx Section, Hx Gynecologic Surgery - hyst, Hx Hysterectomy, Hx Orthopedic Surgery - Right knee arthroplasty 07/29/17, Hx Thyroid Surgery, Hx Tonsillectomy - Immunizations Immunizations up to date: Yes Hx Diphtheria, Pertussis, Tetanus Vaccination: Yes Hx Pneumococcal Vaccination: 12/15/15 Vertical Provider Document - CONSTITUTIONAL Agree With Documented VS: Yes Exam Limitations: No Limitations General Appearance: Mild Distress - INFECTION CONTROL TRAVEL OUTSIDE OF THE [place] IN LAST 30 DAYS: No - HEENT HEENT: Atraumatic, Normocephalic - NECK Neck: Normal Inspection, Supple - RESPIRATORY Respiratory: Breath Sounds Normal, No Respiratory Distress - CARDIOVASCULAR Cardiovascular: No Murmur, Tachycardia - BACK Back: Abnormal Inspection - There is tenderness on palpation from L4-S1, tenderness over the right sciatic notch. Lower lumbar muscle spasms are palpated.. negative: CVA Tenderness-Right, CVA Tenderness-Left - MUSCULOSKELETAL/EXTREMETIES Musculoskeletal/Extremeties: FROM - NEURO Level of Consciousness: Awake, Alert Motor/Sensory: No Motor Deficit, No Sensory Deficit Notes: Limping noted to right leg uses cane to ambulate. Neurovascularly intact - DERM Integumentary: Warm, Dry, No Rash Course - Re-evaluation Re-evalutation: 11/01/19 11:15 Patient is resting comfortably with decreased pain. Gaits improved. Vital signs are stable. Continue with her home medications. Patient was given strict return to the emergency room guidelines. Return for any new or worsening symptoms. All questions were answered. Patient verbalized understanding and agrees with plan of care. - Vital Signs Vital signs: Temp Pulse Resp BP Pulse Ox 97.6 F 112 H 20 160/96 H 99 11/01/19 10:28 11/01/19 10:28 11/01/19 10:28 11/01/19 10:28 11/01/19 10:28 Discharge - Discharge Clinical Impression: Right sided sciatica Condition: Stable Disposition: HOME, SELF-CARE Instructions: Sciatica ([facility]) Additional Instructions: Continue your current home medications. Follow-up with pain management as needed. Return to the emergency room for any new or worsening symptoms. Referrals: MARIKA BOTELLO MD [Primary Care Provider] - Follow up as needed
[2019-11-01 11:14] VITALS: BP 148/95
== END 2019-11-01 11:15 | disposition home or self-care (01) ==
LOC: ER 10:22
DX: M54.31 Sciatica, right side (principal); I10 Essential (primary) hypertension; E78.00 Pure hypercholesterolemia, unspecified; G89.29 Other chronic pain; Z87.442 Personal history of urinary calculi
CPT/HCPCS: 99283; 96372; J1885

== ENCOUNTER 2019-11-15 07:33 | Emergency (ER) | payer MEDICARE, MEDICAID ==
[2019-11-15 07:38] VITALS: BP 132/80
[2019-11-15] MEDS ORDERED: KETOROLAC TROMETHAMINE INJ/PF 30 MG/1 ML SDV IM ONE (08:49)
--- NOTE | 2019-11-15 08:49 | ER Document Report ---
ED General - General Chief Complaint: Low Back Pain Stated Complaint: BACK PAIN Time Seen by Provider: 11/15/19 08:11 Primary Care Provider: AMRIKA BOTELLO MD [Primary Care Provider] - Follow up as needed Notes: 63-year-old female with past medical history of hypertension, asthma, hyperlipidemia, hypothyroidism chronic right knee pain, chronic pain and right- sided sciatica. States her sciatica started 2 years ago after she had her right knee replaced. She is seen by [facility] pain management. She has been on Oxy 10 for what appears to be almost 1 year based on the [employer]. She states that when her pain gets to this level she typically gets a Toradol shot for her sciatica which helps alleviate her pain. She has an appointment with her pain management doctor tomorrow for an epidural. She states she gets the epidural approximately every 2 to 3 months. She states that she has an allergy to tramadol. Does have intermittent tingling in her toes. She denies any loss of bowel or bladder control. She denies any saddle anesthesia. She denies any fever, chills, shortness of breath chest pain or additional symptoms at this time. TRAVEL OUTSIDE OF THE [place] IN LAST 30 DAYS: No - Related Data Allergies/Adverse Reactions: hydrocodone [Hydrocodone] Allergy (Severe, Verified 11/15/19 08:19) sertraline HCl [From Zoloft] Allergy (Severe, Verified 11/15/19 08:19) hives, resp arrest propranolol HCl [From Inderal] Allergy (Intermediate, Verified 11/15/19 08:19) Hives ondansetron Allergy (Unknown, Verified 11/15/19 08:19) lamotrigine [From Lamictal] Allergy (Verified 11/15/19 08:19) propranolol Allergy (Verified 11/15/19 08:19) Past Medical History - Social History Smoking Status: Never Smoker Chew tobacco use (# tins/day): No Frequency of alcohol use: None Drug Abuse: None Family History: Reviewed & Not Pertinent, Arthritis, CVA, Hyperlipidemia, Hypertension, Malignancy, Other Patient has homicidal ideation: No - Past Medical History Cardiac Medical History: Reports: Hx Hypercholesterolemia, Hx Hypertension Pulmonary Medical History: Reports: Hx Asthma Neurological Medical History: Reports: Hx Cerebrovascular Accident, Hx Migraine Endocrine Medical History: Reports: Hx Hypothyroidism - Thyroid removed. Denies: Hx Graves' Disease, Hx Hyperthyroidism. Comment Only: Hx Diabetes Mellitus Type 2 - borderline diet controlled Renal/ Medical History: Reports: Hx Kidney Stones, Hx Ovarian Cysts. Denies: Hx End Stage Renal Disease, Hx Peritoneal Dialysis, Hx Pelvic Inflammatory Disease Malignancy Medical History: Denies: Hx Breast Cancer, Hx Cervical Cancer, Hx Ovarian Cancer GI Medical History: Reports: Hx Gastroesophageal Reflux Disease, Hx Irritable Bowel Musculoskeletal Medical History: Reports Hx Arthritis, Reports Hx Musculoskeletal Deformity, Reports Hx Musculoskeletal Trauma, Denies Hx Systemic Lupus Erythematosus Skin Medical History: Reports Hx Cellulitis Psychiatric Medical History: Reports: Hx Bipolar Disorder, Hx Depression, Hx Schizophrenia Denies: Hx Post Traumatic Stress Disorder Traumatic Medical History: Past Surgical History: Reports: Hx Abdominal Surgery - Ex Lap, Hx Appendectomy, Hx Section, Hx Gynecologic Surgery - hyst, Hx Hysterectomy, Hx Orthopedic Surgery - Right knee arthroplasty 07/29/17, Hx Thyroid Surgery, Hx Tonsillectomy - Immunizations Immunizations up to date: Yes Hx Diphtheria, Pertussis, Tetanus Vaccination: Yes Hx Pneumococcal Vaccination: 12/15/15 Review of Systems - Review of Systems Constitutional: No symptoms reported EENT: No symptoms reported Cardiovascular: No symptoms reported Respiratory: No symptoms reported Gastrointestinal: No symptoms reported Genitourinary: No symptoms reported Female Genitourinary: No symptoms reported Musculoskeletal: See HPI Skin: No symptoms reported Neurological/Psychological: See HPI Physical Exam - Vital signs Vitals: Temp Pulse Resp BP Pulse Ox 98.9 F 81 19 132/80 H 96 11/15/19 07:37 11/15/19 07:37 11/15/19 07:37 11/15/19 07:37 11/15/19 07:37 Interpretation: Normal - Notes Notes: Adult General: GENERAL: Alert, interacts well. No acute distress HEAD: Normocephalic, atraumatic EYES: Extraocular movements intact. ENT: Airway patent. Nares patent. NECK: Full range of motion. Supple. Trachea midline. LUNGS: No respiratory distress. GENITOURINARY: Deferred EXTREMITIES: Right knee mildly swollen, no erythema or warmth. She has full ROM. No pitting edema. Normal dorsal pedis pulse. No cyanosis. Moves all 4 extremities spontaneously. BACK: tenderness to her low back, most specifically at L-4, L-5. Tender to paraspinals. No saddle anesthesia, normal distal neurovascular exam. Moves all extremities with full range of motion. NEUROLOGICAL: Alert and oriented x3. Normal speech. Strength 5/ 5 in all extremities. PSYCH: Normal affect, normal mood. SKIN: Small 1.5 cm blister on right low back, no erythema, no tenderness, no blisters. Warm, dry, normal turgor. Course - Re-evaluation Re-evalutation: 11/15/19 08:53 Patient with chronic right-sided sciatica. Physical exam is benign. She has no neurological deficits. She still has 1 day left of her Oxycodone. She states that Toradol IM usually relieves her pain until she can get to her appointment with pain management. She has an appointment with pain management scheduled tomorrow. She has tried multiple modalities to help alleviate her pain. She is not interested in muscle relaxers at this time as she states she rarely takes 6 medications for her blood pressure. She also reports that she uses a lot of heat to help alleviate her pain with a heating pad. This may be the cause of her blister. The blister is nontender to palpation, with no erythema. It may be a small burn blister from using a heating pad. I did inform patient of this. Recommend that she continues to follow-up on this. There is any changes to it she needs to seek medical attention. We will go ahead and order her a shot of Toradol. Recommend patient keep her pain management appointment continue taking her medications as prescribed by her pain management doctor and primary care physician. Discussed return precautions to the emergency department to include worsening symptoms or development of new symptoms. Patient acknowledges and verbalizes understanding of instructions and plan. All questions answered. - Vital Signs Vital signs: Temp Pulse Resp BP Pulse Ox 98.9 F 81 19 132/80 H 96 11/15/19 07:37 11/15/19 07:37 11/15/19 07:37 11/15/19 07:37 11/15/19 07:37 Discharge - Discharge Clinical Impression: Chronic pain Qualifiers: Chronic pain type: other chronic pain Qualified Code(s): G89.29 - Other chronic pain Sciatica Qualifiers: Laterality: right Qualified Code(s): M54.31 - Sciatica, right side Knee pain, right Qualifiers: Chronicity: chronic Qualified Code(s): M25.561 - Pain in right knee Condition: Stable Disposition: HOME, SELF-CARE Instructions: Low Back Pain ([facility]), Pain Medication Injection ([facility]) Additional Instructions: Please keep your appointment for pain management provider tomorrow. Continue to take your medications as prescribed. Please return the emergency department if you have worsening symptoms or development of new symptoms. Referrals: MARIKA BOTELLO MD [Primary Care Provider] - Follow up as needed
== END 2019-11-15 09:16 | disposition home or self-care (01) ==
LOC: ER 07:33
DX: G89.29 Other chronic pain (principal); M54.31 Sciatica, right side; M25.561 Pain in right knee; M25.461 Effusion, right knee; R20.2 Paresthesia of skin; S30.820A Blister (nonthermal) of lower back and pelvis, initial encounter; X58.XXXA Exposure to other specified factors, initial encounter; I10 Essential (primary) hypertension; J45.909 Unspecified asthma, uncomplicated; Z79.891 Long term (current) use of opiate analgesic; Z96.651 Presence of right artificial knee joint; Z88.8 Allergy status to other drugs, medicaments and biological substances; Z88.6 Allergy status to analgesic agent; Z88.5 Allergy status to narcotic agent
CPT/HCPCS: 99283; 96372; J1885